=== PATIENT | female | born 1975 | race Caucasian/White ===

== ENCOUNTER 2019-02-26 10:00 | Outpatient (RCR) | payer OTHER, SELFPAY ==
--- NOTE | 2019-02-24 13:52 | HP.PTEVAL_ITS ---
Patient's Visit Information KIERRA REED is a 43 year old F referred to Physical Therapy by GAETANO LUNA with a diagnosis of BPPV. Date of Evaluation: 02/24/19 Physical Therapist: Mauro Wiggins, SAI, OCS, CSCS - Visit Plan Frequency: 1-2x /Week Duration: 2-4 Weeks Plan: 1-2x/week for 2-4 as needed for progression of adaptation exercises and monitor positional/balance - Subjective Findings: Saturday sitting at pool relaxing looking down and looked back up and felt spinning like on a carousel and got hot and sweaty. Vomitted. Then was going to ER brushing teeth felt like on carousel again. Vomitted on way to h [facility]. Kept in hospital until Saturday. Did an MRI and bloodwork adn catscan. All was OK. Diagnosed with vertigo. Has h/o migraines. Had NICOLAS on Saturday. NICOLAS caused by stress. Yesterday was not good, dizzy and nauseaous but no carousel feeling . Does not lie flat to sleep. Hadd some maneuver in hospital but nothing happened according to patient. 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 Enjoys walking and biking and reading and cannot do these lately. Phone adn TV screen also seem abnormal. - Objective Walking is hesitant but not unsafe. trasnfers are I without UE. Steps are slow but reciprocal without rail. - B hallpike adn - roll test. c/s aROM WFL and without symptoms. UE aROM WFL. Oculomotor: no nystagmus with gaze or head shake. pursuit and saccades normal. convergence slow. - skew eye deviation. - head thrust. VOR symptomatic with hot and sweaty and more difficult 30 seconds in with symptoms lasting 2 minutes...horiz. - Balance Scores Functional Gait Assessment Score: 25 % Disability: 16.6700 - Goals Goal 1:: Abolish vertigo feelings Goal Time Frame: 2-4 Weeks Goal 2:: Pt feel 90% better and balance 30/30 FGA Goal Time Frame: 2-4 Weeks Goal 3:: Pt ready/confident to fly to see [place] for vaction this weekend Goal Time Frame: 2 Weeks Goal 4:: Pt ready to return to work. Goal Time Frame: 2-4 Weeks - Rehabilitation Potential Physical Therapy Diagnosis: BPPV vs likely vestibular neuritis. Rehabilitation Potential: Good - Anticipated Interventions Patient/Client Instruction: Educate patient on: Condition, Plan of Care For the Purpose of:: To increase tolerance to activity/condition/position, To improve ability of physical actions for home/community/work/leisure, To improve safety with gait Therapeutic Exercise to Include: Balance training Comment: adaptation and positional ex as needed. For the Purpose of:: To increase tolerance to activity/condition/position, To improve ability of physical actions for home/community/work/leisure Thank you for the opportunity to evaluate your patient. For Medicare and Medicare HMO plans, please review the plan of care and approve it. It will need to be FAXED BACK to us at [phone] for Medicare purposes. For Medicare only, by signing this I certify the plan of care. Please let me know if there are questions or concerns regarding this plan of care. Physician Signature: D ate:
--- NOTE | 2019-05-12 18:34 | HP.PTDCNRP_ITS ---
HP - Discharge Summary (1) - Patient Information KIERRA REED was seen in my office for initial evaluation on 02/24/19. The following Plan of Care was established for this patient: Initial Frequency: 1-2x /Week Initial Duration: 2-4 Weeks - Anticipated Interventions Patient/Client Instruction: Educate patient on: Condition, Plan of Care For the Purpose of:: To increase tolerance to activity/condition/position, To improve ability of physical actions for home/community/work/leisure, To improve safety with gait Therapeutic Exercise to Include: Balance training For the Purpose of:: To increase tolerance to activity/condition/position, To improve ability of physical actions for home/community/work/leisure This patient was last seen in our office 02/26/19. Pertinent comments regarding their Physical therapy will appear below: Pt seen two visits of POC. She was to return to doctor after her last visit due to possible infection. She did not return to PT. at this point, it has been over two months adn I will discontinue due to nonattendance. At this point I will be discontinuing this patient from physical therapy. I w ould be happy to see this patient again in the future if found appropriate by the physician. Thank you! Mauro Wiggins, DPT, OCS, CSCS
== END 2019-02-26 19:00 | disposition home or self-care (01) ==
LOC: PT 10:00
PROVIDERS: Family Provider Dentist; PCP Dentist
DX: H81.10 Benign paroxysmal vertigo, unspecified ear (principal)
CPT/HCPCS: 97110; 97162; 97530

== ENCOUNTER → 2019-03-25 07:00 | Outpatient (CLI) | payer OTHER, SELFPAY ==
--- NOTE | 2019-03-25 07:04 | BI_ITS ---
MAMMOGRAPHY - BILATERAL SCREENING REASON FOR EXAM: Female, 43 years old. Routine annual screening examination. PERTINENT HISTORY: Non-contributory. TECHNIQUE: Digital bilateral breast james (3D mammographic acquisition) in the CC and MLO projections. 2-D mediolateral oblique (MLO) and craniocaudad (CC) views of both breasts were obtained. CAD: Full Field Digital Mammography with Computer Added Detection was performed. COMPARISON: Comparison is made with prior outside examination dated January 08, 2018. FINDINGS: Breast Composition: The breasts are heterogeneously dense, which may obscure small masses. There are no dominant masses or suspicious calcifications. No other significant abnormalities are identified. There has been no significant change since the prior study. BI/SCREENING MAMM (CAD), BILAT IMPRESSION: Stable bilateral screening mammogram. Yearly follow-up mammogram recommended. (A) ASSESSMENT CATEGORY: BIRADS Category 1: Negative. A letter regarding these results will be sent to the patient by the facility within 30 days. Approximately 10% of breast cancers are not detected by mammography. A normal mammogram should not delay biopsy of a clinically suspicious abnormality. [id number] Electronically Signed: Rodrick Aguilera, at 9:44 EDT , Service support ,
== END ==
PROVIDERS: Family Provider Nurse Practitioner Family; PCP Nurse Practitioner Family; Referring Provider Obstetrics & Gynecology; Visit Provider Obstetrics & Gynecology
DX: Z12.31 Encounter for screening mammogram for malignant neoplasm of breast (principal)
CPT/HCPCS: 77063; 77067

== ENCOUNTER → 2020-03-28 08:33 | Outpatient (CLI) | payer OTHER, SELFPAY ==
--- NOTE | 2020-03-28 08:36 | BI_ITS ---
MAMMOGRAPHY - BILATERAL SCREENING REASON FOR EXAM: Female, 44 years old. Routine annual screening examination. PERTINENT HISTORY: Non-contributory. TECHNIQUE: Digital bilateral breast ildefonso (3D mammographic acquisition) in the CC and MLO projections. 2-D mediolateral oblique (MLO) and craniocaudad (CC) views of both breasts were obtained. CAD: Full Field Digital Mammography with Computer Added Detection was performed. COMPARISON: Comparison is made with prior examination dated March 25, 2019. FINDINGS: Breast Composition: The breasts are heterogeneously dense, which may obscure small masses. There are no dominant masses or suspicious calcifications. No other significant abnormalities are identified. There has been no significant change since the prior study. BI/SCREEN MAMM (CAD) W/ILDEFONSO BILAT IMPRESSION: Stable bilateral screening mammogram. Yearly follow-up mammogram recommended. (A) ASSESSMENT CATEGORY: BIRADS Category 1: Negative. A letter regarding these results will be sent to the patient by the facility within 30 days. Approximately 10% of breast cancers are not detected by mammography. A normal mammogram should not delay biopsy of a clinically suspicious abnormality. [id number] Electronically Signed: Rodrick Aguilera, at 9:59 EDT , Service support ,
== END ==
PROVIDERS: Family Provider Nurse Practitioner Family; PCP Nurse Practitioner Family; Referring Provider Obstetrics & Gynecology; Visit Provider Obstetrics & Gynecology
DX: Z12.31 Encounter for screening mammogram for malignant neoplasm of breast (principal)
CPT/HCPCS: 77063; 77067

== ENCOUNTER → 2021-07-31 | Outpatient (CLI) | payer OTHER, SELFPAY ==
--- NOTE | 2021-07-31 09:39 | BI_ITS ---
MAMMOGRAPHY - BILATERAL SCREENING REASON FOR EXAM: Female, 45 years old. Routine annual screening examination. PERTINENT HISTORY: Non-contributory. TECHNIQUE: Digital bilateral breast ildefonso (3D mammographic acquisition) in the CC and MLO projections. 2-D mediolateral oblique (MLO) and craniocaudad (CC) views of both breasts were obtained. CAD: Full Field Digital Mammography with Computer Added Detection was performed. COMPARISON: Comparison is made with prior examination dated 03/28/2020 and 03/25/2019. FINDINGS: Breast Composition: The breasts are heterogeneously dense, which may obscure small masses. There are no dominant masses or suspicious calcifications. Stable small benign-appearing bilateral axillary lymph nodes. No other significant abnormalities are identified. There has been no significant change since the prior study. BI/SCRN MAMM (CAD)W/ILDEFONSO BILAT IMPRESSION: Stable bilateral screening mammogram. Yearly follow-up mammogram recommended. (A) ASSESSMENT CATEGORY: BIRADS Category 2: Benign. A letter regarding these results will be sent to the patient by the facility within 30 days. Approximately 10% of breast cancers are not detected by mammography. A normal mammogram should not delay biopsy of a clinically suspicious abnormality. [id number] Electronically Signed: Rodrick Aguilera MD at 11:11 EDT , Service support ,
== END | disposition home or self-care (01) ==
LOC: OPBI 09:38
PROVIDERS: PCP Nurse Practitioner Family; Visit Provider Obstetrics & Gynecology
DX: Z12.31 Encounter for screening mammogram for malignant neoplasm of breast (principal)
CPT/HCPCS: 77063; 77067

== ENCOUNTER → 2022-08-02 | Outpatient (CLI) | payer OTHER, SELFPAY ==
--- NOTE | 2022-08-02 07:59 | BI_ITS ---
MAMMOGRAPHY - BILATERAL SCREENING REASON FOR EXAM: Female, 46 years old. Routine annual screening examination. PERTINENT HISTORY: Non-contributory. TECHNIQUE: Digital bilateral breast ildefonso (3D mammographic acquisition) in the CC and MLO projections. 2-D mediolateral oblique (MLO) and craniocaudad (CC) views of both breasts were obtained. CAD: Full Field Digital Mammography with Computer Added Detection was performed. COMPARISON: Comparison is made with prior study 07/31/2021 and 03/28/2020. FINDINGS: Breast Composition: The breasts are heterogeneously dense, which may obscure small masses. There are no dominant masses or suspicious calcifications. Stable small benign-appearing bilateral axillary No other significant abnormalities are identified. There has been no significant change since the prior study. BI/SCRN MAMM (CAD)W/ILDEFONSO BILAT IMPRESSION: Stable bilateral screening mammogram. Yearly follow-up mammogram recommended. (A) ASSESSMENT CATEGORY: BIRADS Category 2: Benign. A letter regarding these results will be sent to the patient by the facility within 30 days. Approximately 10% of breast cancers are not detected by mammography. A normal mammogram should not delay biopsy of a clinically suspicious abnormality. [id number] Electronically Signed: Rodrick Aguilera MD at 10:01 EDT ,
== END | disposition home or self-care (01) ==
LOC: OPBI 07:58
PROVIDERS: PCP Internal Medicine; Visit Provider Internal Medicine
DX: Z12.31 Encounter for screening mammogram for malignant neoplasm of breast (principal)
CPT/HCPCS: 77063; 77067

== ENCOUNTER 2022-09-14 07:17 | Day surgery (SDC) | payer OTHER, SELFPAY ==
[2022-09-14] VITALS (7 sets, daily range): BP systolic 105–124; BP diastolic 63–77; PULSE 63–89; RESP 14–100; TEMP 36.3–36.5; O2SAT 14–100; BMI 26.5
--- NOTE | 2022-09-14 07:25 | PCM.HP.BLA ---
History and Physical Date of Admission: 09/14/22 Visit Reasons:?Thrombosed Hemorrhoid Chief Complaint: Thrombosed Hemorrhoid [employer] Required: No Is patient in pain?: No Allergies No Known Allergies Allergy (Verified 03/29/22 13:05) Medications citalopram 40 mg tablet 40 mg PO DAILY 03/29/22 [History Confirmed 03/29/22] hydrocortisone acetate 25 mg rectal suppository 25 mg MD BID #12 ea 03/29/22 [Rx Confirmed 03/29/22] topiramate 25 mg tablet 25 mg PO DAILY? tab 03/29/22 [History Confirmed 03/29/22] PFSH Medical History?(Updated 04/02/22 @ 07:33 by Chiquita OTERO PA-C) Anxiety Encounter for screening colonoscopy Internal hemorrhoid Surgical History?(Updated 03/29/22 @ 12:52 by Mine Serrano) History of bladder suspension procedure History of History of hemorrhoidectomy History of laparoscopic cholecystectomy Family History? Father High blood cholesterolMother Cancer Skin cancer Social History?(Updated 03/29/22 @ 12:55 by Mine Serrano) Smoking Status:? Never smoker alcohol intake:? current substance use type:? does not use HPI HPI HPI: KIERRA REED, is a 46 F who presents to the office today for possible thrombosed hemorrhoid. Patient states she has been having pain in the anal/rectum region for approximately 2 years. 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 Patient notes when having a bowel movement she is able to feel a hemorrhoid sliding out. She notes the hemorrhoid will stay out intermittently. She notes this is when the pain will occur and she believes develops a thrombosed hemorrhoid. She notes the hemorrhoid will spontaneously resolve and slide back into place. She notes at times it is challenging to keep the area clean. She states she has had a previous external hemorrhoidectomy approximately 1 month after giving 20 years ago. She notes a history of constipation for which she takes Metamucil. She notes this does not help to soften her stools anymore. She does admit that she does not drink much fluids. She also notes she is of age for a colonoscopy. She notes verifying with her insurance company that she should have received a colonoscopy starting at age 44. She notes some rectal bleeding intermittently with bowel movements only. She denies abdominal pain. She denies family history of colon cancer. She denies previous colonoscopy.? ? ROS General General: No weight change, appetite, fatigue, colon cancer, breast cancer or weakness HEENT HEENT: No difficulty swallowing, eye injury, eye surgery, swollen glands or hoarseness Endo Endocrine: No thyroid disease, diabetes mellitus, thyroid cancer, Hair loss, heat intolerance or cold intolerance Skin Skin: No rash or changing moles Breast Breast: No left breast lump, right breast lump, nipple discharge, breast pain, abnormal mammogram, abnormal US or breast enlargement Musc Musculoskeletal: No back problems, arthritis, rheumatoid arthritis, gout or joint pain Cardio Cardiovascular: No murmur, pacemaker, heart disease, atrial fibrillation, high blood pressure, heart attack, heart stent, palpitations, shortness of breat with exertion or chest pain Psych Psychiatric: Yes anxiety; No depression or hearing voices Resp Respiratory: No shortness of breath, No sleep apnea, No cough, No COPD, No asthma, No emphysema and No wheezing Gastro Gastrointestinal: Yes constipation, Yes blood in stool, Yes acid reflux and Yes hemorrhoids [place]arrison Hematologic: No blood thinners, No blood disorders, No bleeding, No anemia and No blood clots Neuro Neurologic: No system reviewed and no additional complaints, except as documented, No as per HPI, No abnormal gait, No abnormal hearing, No abnormal movements, No abnormal speech, No behavioral changes, No burning sensations, No confusion, No convulsions, No disequilibrium, No dizziness, No localized weakness, No frequent falls, No headache(s), No lack of coordination, No loss of vision, No memory loss, No numbness, No other visual disturbances, No radicular pain, No restless legs, No sensory deficit, No syncope, No tingling, No tremor(s), No weakness and No other Exam Const General: cooperative, healthy appearing, comfortable and no acute distress [facility] Head: normal to inspection Eyes General: appearance normal, both eyes and all related structures Neck Neck: normal visual inspection Neck mass: No Resp Effort & Inspection: normal respiratory effort Auscultation: clear to auscultation bilaterally Cardio Rate: regular rate Rhythm: regular rhythm GI Inspection: normal to inspection Palpation: soft Auscultation: normal bowel sounds Rectal Exam: normal sphincter tone, No fissure and hemorrhoids (swollen internal hemorrhoids noted) Skin General: no rashes or lesions noted Neuro General: no focal motor deficits and CN's II-XI intact bilaterally Extrem General: normal to inspection Psych Appearance: grossly normal Affect: normal affect Assessment and Plan Assessment and Plan (1) Internal hemorrhoid: ?Status:?Acute ?Plan - JACOB JoinerC: 46 y/o F I am seeing for potential thrombosed hemorrhoid. Following examination, patient currently has inflamed internal hemorrhoids with notable swelling internally, however no thrombosed hemorrhoid. She has not been placing any ointment or creams on the hemorrhoids. She has not been using suppositories, however would be interested in trying these to decrease the inflammation. I am not appreciating an external fissure as most of her discomfort is at the posterior aspect of the anus, however no fissure noted. I am recommending hydrocortisone suppositories to try BID for 3-5 days to assist with decreasing the swelling. I will send these to the pharmacy. I am also recommending the patient keep her stools soft and add Miralax into her daily regimen. (2) Encounter for screening colonoscopy: ?Status:?Acute ?Plan - Chiquita OTERO PA-C: Dr. Mcfarland will plan to perform a screening colonoscopy and evaluate the severity of internal hemorrhoids at that time. Colonoscopy procedure details, risks and benefits have been explained. We will proceed with a Miralax prep at the convenience of the patient. Following the colonoscopy, discussion may proceed further in regards to future treatment of the hemorrhoids in the form of a surgical intervention. Patient has had the opportunity to ask and have questions answered. Patient verbally understands and agrees with the plan. Patient to return to our office if she notes any anal discomfort or potential of a thrombosed hemorrhoid I have examined the patient and the H&P has been reviewed. There are no clinical changes since date of exam. Dalton Mcfarland M.D., F.A.C.S.
[2022-09-14] MEDS: Lactated Ringers 1,000 ML 15 ML IV (07:54)
[2022-09-14 08:05] LABS: Internal QC Validated? YES +Cl - CLEAR BKGD; Pregnancy, Urine Negative Negative
--- NOTE | 2022-09-14 09:02 | OP.COLON_ITS ---
Patient Name: Kate Cortez Procedure Date: 09/14/2022 8:25 AM Date of : 1975 Age: 47 Procedure: Colonoscopy Indications: Follow-up of hemorrhoids Providers: Dalton Mcfarland MD Medicines: See the Anesthesia note for documentation of the administered medications Patient Profile: Last Colonoscopy: none. The patient's first colonoscopy is today. Complications: No immediate complications. Procedure: Pre-Anesthesia Assessment: - Prior to the procedure, a History and Physical was performed, and patient medications and allergies were reviewed. The patient's tolerance of previous anesthesia was also reviewed. The risks and benefits of the procedure and the sedation options and risks were discussed with the patient. All questions were answered, and informed consent was obtained. Prior Anticoagulants: The patient has taken no previous anticoagulant or antiplatelet agents. ASA Grade Assessment: II - A patient with mild systemic disease. After reviewing the risks and benefits, the patient was deemed in satisfactory condition to undergo the procedure. After I obtained informed consent, the scope was passed under direct vision. Throughout the procedure, the patient's blood pressure, pulse, and oxygen saturations were monitored continuously. The Colonoscope was introduced through the anus and advanced to the cecum, identified by appendiceal orifice and ileocecal valve. The colonoscopy was somewhat difficult due to a tortuous colon. Successful completion of the procedure was aided by using manual pressure and withdrawing the scope and replacing with the adult endoscope. The patient tolerated the procedure well. The quality of the bowel preparation was good. Scope In: 8:33:20 AM Scope Withdrawal Time 0 hours 6 minutes 47 seconds Scope Out: 8:54:30 AM Total Procedure Duration Time 0 hours 21 minutes 10 seconds Findings: The digital rectal exam findings include non-thrombosed external hemorrhoids and internal hemorrhoids that prolapse with straining, but require manual replacement into the anal canal (Grade III). The colon (entire examined portion) was moderately tortuous. The exam was otherwise without abnormality. Impression: - Non-thrombosed external hemorrhoids and internal hemorrhoids that prolapse with straining, but require manual replacement into the anal canal (Grade III) found on digital rectal exam. Left lateral external hemorrhoidal tag - Tortuous colon. - The examination was otherwise normal. - No specimens collected. Recommendation: - Discharge patient to home. - Resume previous diet. - Continue present medications. - Repeat colonoscopy in 10 years for screening purposes. - Telephone my office if symptomatic PRN. Consider surgical resection hemorrhoidal tags Procedure Code(s): --- Professional --- 05268, Colonoscopy, flexible; diagnostic, including collection of specimen(s) by brushing or washing, when performed (separate procedure) Diagnosis Code(s): --- Professional --- K64.2, Third degree hemorrhoids K64.4, Residual hemorrhoidal skin tags Q43.8, Other specified congenital malformations of intestine CPT copyright 2017 [employer]. All rights reserved. The codes documented in this report are preliminary and upon him coder review may be revised to meet current compliance requirements. Dalton Mcfarland MD 09/14/2022 9:01:44 AM This report has been signed electronically. Number of Addenda: 0 Note Initiated On: 09/14/2022 8:25 AM
--- NOTE | 2022-09-14 09:03 | OP.CCLET_ITS ---
09/14/2022 Michelle López [address] [place] [address] Re : Colonoscopy procedure for Kate Cortez Dear Dr. López This procedure was performed on Wednesday, September 14, 2022. My impressions and recommendations are as follows: Impressions : - Non-thrombosed external hemorrhoids and internal hemorrhoids that prolapse with straining, but require manual replacement into the anal canal (Grade III) found on digital rectal exam. Left lateral external hemorrhoidal tag - Tortuous colon. - The examination was otherwise normal. - No specimens collected. Recommendations : - Discharge patient to home. - Resume previous diet. - Continue present medications. - Repeat colonoscopy in 10 years for screening purposes. - Telephone my office if symptomatic PRN. Consider surgical resection hemorrhoidal tags My findings are described in the full procedure note, which is enclosed. If I can be of further assistance, please feel free to contact me at Doctor phone number(s): Work: . Sincerely, Dalton Mcfarland MD 09/14/2022 9:01:44 AM This report has been signed electronically.
== END 2022-09-14 09:36 | disposition home or self-care (01) ==
LOC: EN 07:19 → AC 07:20
PROVIDERS: Anesthesiology; PCP Internal Medicine; Referring Provider Internal Medicine; Visit Provider Surgery
PROC: 0DJD8ZZ Inspection of Lower Intestinal Tract, Via Natural or Artificial Opening Endoscopic (ICD-10-PCS; CPT 45378; principal; 2022-09-14 08:25)
DX: Z12.11 Encounter for screening for malignant neoplasm of colon (principal); K64.2 Third degree hemorrhoids; K62.5 Hemorrhage of anus and rectum; K64.4 Residual hemorrhoidal skin tags; F41.9 Anxiety disorder, unspecified; Z79.899 Other long term (current) drug therapy
CPT/HCPCS: 45378; 81025; J7120; J2405

== ENCOUNTER → 2023-08-05 | Outpatient (CLI) | payer OTHER, SELFPAY ==
--- NOTE | 2023-08-05 07:53 | BI_ITS ---
MAMMOGRAPHY - BILATERAL SCREENING REASON FOR EXAM: Female, 48 years old. Routine annual screening examination. PERTINENT HISTORY: Non-contributory. TECHNIQUE: Digital bilateral breast ildefonso (3D mammographic acquisition) in the CC and MLO projections. 2-D mediolateral oblique (MLO) and craniocaudad (CC) views of both breasts were obtained. CAD: Full Field Digital Mammography with Computer Added Detection was performed. COMPARISON: Comparison is made with prior study August 02, 2022 and July 31, 2021. FINDINGS: Breast Composition: The breasts are heterogeneously dense, which may obscure small masses. There are no dominant masses or suspicious calcifications. Stable benign-appearing bilateral axillary lymph nodes. No other significant abnormalities are identified. There has been no significant change since the prior study. BI/SCRN MAMM (CAD)W/ILDEFONSO BILAT IMPRESSION: Stable bilateral screening mammogram. Yearly follow-up mammogram recommended. (A) ASSESSMENT CATEGORY: BIRADS Category 2: Benign. A letter regarding these results will be sent to the patient by the facility within 30 days. Approximately 10% of breast cancers are not detected by mammography. A normal mammogram should not delay biopsy of a clinically suspicious abnormality. [id number] Electronically Signed: Rodrick Aguilera MD at 9:22 EDT ,
== END | disposition home or self-care (01) ==
LOC: OPBI 07:50
PROVIDERS: PCP Internal Medicine; Referring Provider Obstetrics & Gynecology; Visit Provider Obstetrics & Gynecology
DX: Z12.31 Encounter for screening mammogram for malignant neoplasm of breast (principal)
CPT/HCPCS: 77063; 77067

== ENCOUNTER → 2024-08-06 | Outpatient (CLI) | payer OTHER, SELFPAY ==
--- NOTE | 2024-08-06 07:23 | BI_ITS ---
MAMMOGRAPHY - BILATERAL SCREENING REASON FOR EXAM: Female, 49 years old. Routine annual screening examination. PERTINENT HISTORY: Non-contributory. TECHNIQUE: Digital bilateral breast ildefonso (3D mammographic acquisition) in the CC and MLO projections. 2-D mediolateral oblique (MLO) and craniocaudad (CC) views of both breasts were obtained. CAD: Full Field Digital Mammography with Computer Added Detection was performed. COMPARISON: Comparison is made with prior study dated August 05, 2023 and August 02, 2022. FINDINGS: Breast Composition: The breasts are heterogeneously dense, which may obscure small masses. There are no dominant masses or suspicious calcifications. Stable small benign-appearing bilateral axillary lymph nodes. No other significant abnormalities are identified. There has been no significant change since the prior study. BI/SCRN MAMM (CAD)W/ILDEFONSO BILAT IMPRESSION: Stable bilateral screening mammogram. Yearly follow-up mammogram recommended. (A) ASSESSMENT CATEGORY: BIRADS Category 2: Benign. A letter regarding these results will be sent to the patient by the facility within 30 days. Approximately 10% of breast cancers are not detected by mammography. A normal mammogram should not delay biopsy of a clinically suspicious abnormality. [id number] Electronically Signed: Rodrick Aguilera MD at 8:31 EDT ,
== END | disposition home or self-care (01) ==
LOC: OPBI 07:15
PROVIDERS: PCP Internal Medicine; Referring Provider Obstetrics & Gynecology; Visit Provider Obstetrics & Gynecology
DX: Z12.31 Encounter for screening mammogram for malignant neoplasm of breast (principal)
CPT/HCPCS: 77063; 77067

== ENCOUNTER → 2025-08-09 | Outpatient (CLI) | payer OTHER, SELFPAY ==
--- NOTE | 2025-08-09 07:19 | BI_ITS ---
EXAM: SCRN MAMM (CAD)W/ILDEFONSO BILAT DATE: 08/09/2025 CLINICAL HISTORY: F, Age 50 y/o , SCREENING No family history. TECHNIQUE: Procedure Code: [id number] Modality: MG Procedure: SCRN MAMM (CAD)W/ILDEFONSO BILAT COMPARISON: Prior exam(s) dated August 06, 2024.. FINDINGS: TISSUE DENSITY: The breasts are heterogeneously dense, which may obscure small masses. Bilateral Breast Mammographic Findings: Focal nodular density seen only on the MLO view of the left breast measuring 1 cm in the axillary region. The patient will be recalled for additional views including 90 degree lateral and compression spot views. BI/SCRN MAMM (CAD)W/ILDEFONSO BILAT IMPRESSION: Questionable 1 cm nodular density in the axillary region of the left breast as seen on the MLO view. The patient will be recalled for additional views including 90 degree lateral and compression spot views. OVERALL FINAL ASSESSMENT BI-RADS 0: INCOMPLETE - NEED ADDITIONAL IMAGING EVALUATION. RECOMMENDATION: Additional Views obtained/call backs Additional Recommendation none A letter with findings and recommendations will be mailed to the patient. Reading Location: [place] [id number]
--- OUTSIDE RECORDS SUMMARY | 2025-08-09 07:24 | XMS RPT_ITS | CCD ---
Author Organization [facility] Care Team Providers Care Restaurant Expeditor Name Role Phone Carol Lebron MD Primary Care Provider POONAM Plascencia CNP, PROSPER Dwyer Primary Care Phys ician Carol Lebron MD Primary Care Provider Cebul, Dr. Dalton Dwyer Attending Provider Cewendy, Dr. Dalton Dwyer Other Provider Dr. Carol Lebron Primary Care Provider Dr. Carol Lebron Referring Provider HAILEE, DR FRANDY Durand Attending Unavaila tiffanie BENSON, DR FRANDY Durand Primary Care Unavaila tiffanie BENSON, DR FRANDY Durand Admitting Unavaila Carol Mir MD Primary Care Provider Carol Lebron MD Primary Care Provider PROSPER DAVE APRN, CNP Primary Care U hieu JOHNSON MD, DR MATTI Germain Attending Unavailabl e PROSPER DAVE APRN, CNP Primary Care U hieu MARINO MD, ELAYNE Attending Unavailable Carol Lebron MD Primary Care Provider Rosanne Sykes PA-C Unavailable [phone] Older YANA, Silvina Unavailable Katherine Tirado PA-C Unavailable BHAMA, LITA Admitting Unavailable ANTOINE, LITA Attending Unavailable CAROL LEBRON Primary Care Unavailable TAYEB, JOSSIE Attending Unavailable CAROL LEBRON Primary Care Unavailable CAROL LEBRON Primary Care Unavailable GANTA, CAROL Attending Unavailable CLAUDIA TIRADOADETTE Attending Unavailable GANTA, CAROL Primary Care Unavailable GENA THOMPSON Attending Unavailable GANTA, CAROL Primary Care Unavailable ASHLEE MUNOZ Attending Unavailable GANTA, CAROL Primary Care Unavailable RADHA PHAM Attending Unavailable GANTA, CAROL Primary Care Unavailable SILVINA PRESLEY Referring Unavailable GANTA, CAROL Primary Care Unavailable GANTA, CAROL Primary Care Unavailable GANTA, CAROL Referring Unavailable GANTA, CAROL Primary Care Unavailable GANTA, CAROL Attending Unavailable AMANDA EWING Attending Unavailable GANTA, CAROL Primary Care Unavailable BHAMA, LITA Attending Unavailable GANTA, CAROL Primary Care Unavailable GANTA, CAROL Primary Care Unavailable NICKO GEORGE Referring Unavailable GANTA, CAROL Primary Care Unavailable GANTA, CAROL Primary Care Unavailable GANTA, CAROL Referring Unavailable GANTA, CAROL Primary Care Unavailable GANTA, CAROL Primary Care Unavailable JOVI KISER Attending Unavailable GANTA, CAROL Primary Care Unavailable BOGNER, KATHERINE Referring Unavailable BHAMA, LITA Attending Unavailable GANTA, CAROL Primary Care Unavailable BOGNER, KATHERINE Referring Unavailable GANTA, CAROL Primary Care Unavailable GANTA, CAROL Primary Care Unavailable Ganta, Carol Referring Unavailable Ganta, Carol Attending Unavailable Ganta, Carol Primary Care Unavailable Allergies Allergy Classification Reported Allergen(s) Allergy Type Date of Onset Reaction(s) Facility (20 sources) Erythromycin; Translations: [ERYTHROMYCIN] Drug Allergy 10-15-2005 GI Upset [facility] Work Phone: (20 sources) Honey; Translations: [HONEY] Propensity to adverse reactions 07-04-2009 Swelling [facility] Work Phone: Medications Current Medications Medication Drug Class(es) Dates Sig (Normalized) Sig (Original) ALPRAZolam 0.5 mg oral tablet (1 source) Benzodiazepine Start: 04-13-2025 End: 04-20-2025 take 1 tablet by mouth three times daily as needed ALPRAZolam (XANAX) 0.5 mg tablet Indications: Panic attacks Take 1 tablet by mouth three times a day as needed for up to 7 days. 15 tablet 04/13/2025 04/20/2025 Active amoxicillin 875 mg / clavulanate 125 mg oral tablet (1 source) Penicillin-class Antibacterial Start: 09-14-2024 End: 09-21-2024 take 1 tablet by mouth twice daily amoxicillin-clavula ever potassium (AUGMENTIN) 875-125 mg per tablet Indications: Sinobronchitis Take 1 tablet by mouth two times a day for 7 days. 14 tablet 09/14/2024 09/21/2024 Active ASHWAGANDHA EXTRACT ORAL (9 sources) take 600 mg by mouth once daily ASHWAGANDHA EXTRACT ORAL Take 600 mg by mouth once daily. Active B.animalis,bifid,in fantis,long (PROBIOTIC 4X ORAL) (9 sources) B.animalis,bifid ,in fantis,long (PROBIOTIC 4X ORAL) Take by mouth once daily. Active buPROPion hydrochloride 75 mg oral tablet (9 sources) Aminoketone Start: 02-25-2025 End: 04-26-2025 take 1 tablet by mouth twice daily buPROPion (WELLBUTRIN) 75 mg tablet Take 1 tablet by mouth two times a day. 60 tablet 1 02/25/2025 Active Start: 02-23-2025 End: 08-22-2025 take 1 tablet by mouth once daily buPROPion XL (WELLBUTRIN XL) 150 mg 24 hr tablet Take 1 tablet by mouth once daily. 90 tablet 1 02/23/2025 08/22/2025 Active Calcium with Vitamin D and Magnesium oral tablet, chewable (1 source) Start: 08-02-2022 take 1 tablet by mouth three times daily Calcium with Vitamin D and Magnesium oral tablet, chewable tab(s), Chewed, TID, 0 Refill(s) Start Date: 08/02/22 Status: Ordered cholecalciferol 0.05 mg oral capsule (2 sources) Vitamin D Start: 09-10-2022 take 1 capsule by mouth once daily Cholecalciferol (Vitamin D3) (Vitamin D3) 50 mcg (2,000 unit) Capsule Active 50 MCG PO DAILY September 10, 2022 12:00am cholecalciferol, vitamin D3, (VITAMIN D3 ORAL) (20 sources) cholecalciferol, vitamin D3, (VITAMIN D3 ORAL) Take by mouth once daily. Active citalopram 20 mg oral tablet (20 sources) Serotonin Reuptake Inhibitor Start: 04-05-2025 take 1 tablet by mouth once daily citalopram (CELEXA) 20 mg tablet Take 1 tablet by mouth once daily. 90 tablet 3 04/05/2025 Active Start: 02-25-2025 End: 04-26-2025 take 1 tablet by mouth once daily citalopram hydrobromide (CELEXA) 10 mg tablet Take 1 tablet by mouth once daily. 60 tablet 02/25/2025 04/05/2025 Discontinued Start: 06-17-2023 End: 02-23-2025 take 1 tablet by mouth once daily citalopram (CELEXA) 40 mg tablet Take 1 tablet by mouth once daily. 90 tablet 1 11/17/2024 02/23/2025 Discontinued Start: 07-31-2021 End: 07-26-2022 take 1 tablet by mouth once daily citalopram (CELEXA) 40 mg tablet Take 1 tablet by mouth once daily. 90 tablet 3 05/07/2022 Active Start: 10-28-2020 End: 12-08-2021 take 1 tablet by mouth once daily citalopram (CELEXA) 20 mg tablet Take 1 tablet by mouth once daily. 90 tablet 3 10/28/2020 12/08/2021 Discontinued (Course of therapy completed) Comment on above: Take by mouth once d aily. Take 1 tablet by kevin th once daily. Take 40 mg by mouth. cyanocobalamin, vitamin B-12, (VITAMIN B-12 ORAL) (20 sources) cyanocobalamin, vitamin B-12, (VITAMIN B-12 ORAL) Take by mouth once daily. Active docosahexaenoic acid/epa (FISH OIL ORAL) (9 sources) take 1000 mg by mouth once daily docosahexaenoic acid/epa (FISH OIL ORAL) Take 1,000 mg by mouth once daily. Active 84 hr estradiol 0.86111 mg/hr transdermal system (16 sources) Estrogen Start: 12-02-19 25 estradiol (VIVELLE-DOT) 0.075 mg/24 hr patch Use twice weekly on abdomen or buttock 24 Patch 3 12/02/2024 Active Estradiol Patch 0.0375 mg/24 hours twice weekly transdermal film, extended release (1 source) Start: 04-02-20 24 Estradiol Patch 0.0375 mg/24 hours twice weekly transdermal film, extended release Dose = 1 patch(es), Transdermal, 2x/Wk, apply to skin, # 8 patch(es), 0 Refill(s) Start Date: 04/02/24 Status: Ordered Ethinyl Estradiol / Norethindrone (20 sources) Estrogen Start: 04-05-20 25 take 1 tablet by mouth once daily, then take 0.05 tablet by mouth once Norethindrone Acet-Ethinyl Est (12/07, ,) 1-20 mg-mcg per tablet Take 1 tablet by mouth once daily. 63 tablet 3 04/05/2025 Active Start: 03-09-2024 take 1 tablet by kevin th once daily 12/07 oral tablet Dose = 1 tab(s), Oral, qDay, # 84 tab(s), 3 Refill(s), Pharmacy: [facility]/pharmacy #[id number], 166, cm, 03/09/24 15:00:00 EDT, Height, kg, 03/09/24 15:00:00 EDT, Dosing Weight Start Date: 03/09/24 Status: Ordered Start: 09-10-2022 End: 04-05-2025 take 1 tablet by mouth once daily Norethindrone Acet-Ethinyl Est 1-20 mg-mcg per tablet Take 1 tablet by mouth once daily. 09/10/2022 04/05/2025 Discontinued Start: 09-10-2022 take 1 tablet by kevin th once daily Norethindrone Acet-Ethinyl Est 1-20 mg-mcg per tablet Take 1 tablet by mouth once daily. 09/10/2022 Active Start: 09-10-2022 take 1 tablet by kevin th once daily Norethindrone Ac-Eth Estradiol Active 1 TABLET PO DAILY September 10, 2022 12:00am Start: 08-02-2022 End: 01-17-2023 take 1 tablet by mouth once daily Loestrin 21 12/07 oral tablet Dose = 1 tab(s), Oral, qDay, # 84 tab(s), 1 Refill(s), Pharmacy: [facility], 166, cm, 08/02/22 9:40:00 EDT, Height, kg, 08/02/22 9:40:00 EDT, Dosing Weight Start Date: 08/02/22 Stop Date: 01/17/23 Status: Ordered Start: 07-31-2021 End: 01-15-2022 take 1 tablet by mouth once daily Loestrin 12/07 oral tablet Dose = 1 tab(s), Oral, qDay, # 84 tab(s), 1 Refill(s), Pharmacy: [facility], 167, cm, 07/31/21 10:48:00 EDT, Height, kg, 07/31/21 10:48:00 EDT, Dosing Weight Start Date: 07/31/21 Stop Date: 01/15/22 Status: Ordered Start: 07-31-2021 End: 01-17-[address] Acet-Ethinyl E st 1-20 mg-mcg per tablet Take 20 tablets by mouth once daily. 0 07/31/2021 01/17/2023 Active Start: 08-20-2020 End: 12-08-[address] Acet-Ethinyl E st 1-20 mg-mcg per tablet 08/20/2020 12/08/2021 Discontinued (Course of therapy completed) End: 12-02-2024 take 1 tablet by mouth once daily , 1-20 mg-mcg per tablet Take 1 tablet by mouth once daily. 12/02/2024 Discontinued take 1 tablet by kevin th once daily , 1-20 mg-mcg per tablet Take 1 tablet by mouth once daily. Active Comment on above: Take 20 tablets by m outh once daily. gabapentin 300 mg oral capsule (15 sources) Anti-epileptic Agent Start: 07-14-2025 End: 01-10-2026 take 1 capsule by mouth twice daily gabapentin (NEURONTIN) 300 mg capsule Take 1 capsule by mouth two times a day for 180 days. 60 capsule 5 07/14/2025 01/10/2026 Active Start: 04-13-2025 End: 07-26-2025 take 1 capsule by mouth once daily at bedtime, then take 1 capsule by mouth twice daily gabapentin (NEURONTIN) 300 mg capsule Take 1 capsule by mouth daily at bedtime for 14 days, THEN 1 capsule two times a day for 90 days. 194 capsule 04/13/2025 07/14/2025 Discontinued Start: 10-22-2022 End: 07-13-2024 take 1 capsule by mouth once daily at bedtime gabapentin (NEURONTIN) 300 mg capsule Indications: Menstrual migraine without status migrainosus, not intractable , Migrainous dizziness Take 1 capsule by mouth daily at bedtime for 180 days. 90 capsule 1 12/07/2022 07/13/2024 Discontinued Comment on above: Take 1 capsule by [facility] daily at bedtime for 90 days. Take 1 capsule by [facility] daily at bedtime for 180 days. hydrocortisone acetate 25 mg rectal suppository (5 sources) Corticosteroid Start: 2021 End: 2021 Hydrocortisone Acetate Active 25 MG RC TWICE A DAY September 10, 2022 11:59am iv contrast (will be provided with radiology test) (1 source) Start: 2021 End: 2021 inject 1 dose intravenously once iv contrast (will be provided with radiology test) MRI Brain Inject, intravenously, once for 1 dose.No IV access, insert saline lock prior to beginning of sedation, infusion, injection of imaging exam.Discontinue saline lock post exam. If Pt. has a central line or IVAD, may access for administration according to line specific nursing protocol.Once exam is complete flush line and de-access according to line specific nursing protocol in the MR contrast administration guidelines link 1 Each 0 07/30/2022 07/31/2022 Active Comment on above: MRI Brain Inject, in travenously, once for 1 dose.No IV access, insert saline lock prior to beginning of sedation, infusion, injection of imaging exam.Discontinue saline lock post exam. If Pt. has a central line or IVAD, may access for administration according to line specific nursing protocol.Once exam is complete flush line and de-access according to line specific nursing protocol in the MR contrast administration guidelines link ketorolac tromethamine 10 mg oral tablet (3 sources) Nonsteroidal Anti-inflammatory Drug, Cyclooxygenase Inhibitor Start: 2024 End: 2024 take 1 tablet by mouth three times daily keTORolac (TORADOL) 10 mg tablet Take 1 tablet by mouth three times a day for 5 days. 15 tablet 04/13/2025 04/18/2025 Active lidocaine 0.05 mg/mg rectal gel (1 source) Antiarrhythmic, Amide Local Anesthetic Start: 2023 End: 2023 lidocaine 5 % gel Apply to affected area two times a day as needed for up to 7 days. 30 g 10/23/2024 10/30/2024 Active LORazepam 0.5 mg oral tablet (2 sources) Benzodiazepine Start: 2022 End: 2022 LORazepam (ATIVAN) 0.5 mg Indications: Panic attacks For panic attacks once or twice daily 10 tablet 0 05/01/2023 05/30/2023 Active Comment on above: For panic attacks on ce or twice daily Magnesium (4 sources) Start: 2022 3 in 1 magnesium tablet 3 in 1 magnesium tablet, 0 Refill(s), 81.3 Start Date: 10/17/23 Status: Ordered Start: 09-10-2022 take 200 mg by mouth once ghassan y Magnesium Active 200 MG PO DAILY September 10, 2022 12:00am magnesium carb,citrate,oxide (MAGNESIUM COMPLEX ORAL) (20 sources) magnesium carb,citrate,oxide (MAGNESIUM COMPLEX ORAL) Take by mouth once daily. Active meclizine hydrochloride 25 mg oral tablet (20 sources) Antiemetic Start: 022 End: take 1 tablet by mouth once daily as needed meclizine (ANTIVERT) 25 mg tab Take 1 tablet by mouth once daily as needed. 15 tablet 2 10/01/2022 Active Comment on above: Take 1 tablet by kevin th once daily as needed. Take 25 mg by mouth once daily as needed. MEDICATION, NON-DATABASE (20 sources) MEDICATION, NON- DATABASE Take by mouth once daily. D3 + k2 vitamin Active take 1200 mg by mouth once daily MEDICATION, NON-DATABASE Take 1,200 mg by mouth once daily. Red yeast rice extract Active take 1 [tsp_us] by mouth once da talon MEDICATION, NON-DATABASE Take by mouth once daily. Curcumin and rexveratrol 1 tsp daily Active MEDICATION, NON- DATABASE Take by mouth once daily. Pre biotic Active medroxyPROGESTERone acetate 10 mg oral tablet (17 sources) Progestin Start: 12-02-2024 take 1 tablet by mouth once daily medroxyPROGESTERone (PROVERA) 10 mg tablet Indications: Perimenopause , Perimenopausal vasomotor symptoms Take 1 tablet by mouth once daily. FOR 12 DAYS EACH MONTH 36 tablet 3 12/02/2024 Active Start: 04-02-2024 medroxyPROGEST ERone 2.5 mg oral tablet Dose : 2.5 mg = 1 tab(s), Oral, Daily, # 90 tab(s), 0 Refill(s) Start Date: 04/02/24 Status: Ordered NIFEdipine (12 sources) Dihydropyridine Calcium Channel Jamil Start: 02-04-2025 NIFEdipine rectal ointment 0.2% (CPD) Apply a pea-sized amount by RECTAL route three times a day. 90 g 1 02/08/2025 12:47 PM EDT 02/04/2025 Active Start: 02-04-2025 NIFEdipine rec richy ointment 0.2% (CPD) by RECTAL route three times a day. 90 g 1 02/04/2025 Active Start: 02-04-2025 End: 02-04-2025 NIFEdipine rectal ointment 0 .2% (CPD) by RECTAL route three times a day. 90 g 1 02/04/2025 02/04/2025 Discontinued nitrofurantoin, macrocrystals 25 mg / nitrofurantoin, monohydrate 75 mg oral capsule (1 source) Nitrofuran Antibacterial Start: 07-06-2022 End: 07-13-2022 take 1 capsule by mouth twice daily nitrofurantoin monohydrate and macrocrystal (MACROBID) 100 mg capsule Indications: Urinary frequency Take 1 capsule by mouth twice daily for 7 days. 14 capsule 0 07/06/2022 07/13/2022 Active Comment on above: Take 1 capsule by [facility] twice daily for 7 days. nutritional supplement (2 sources) Start: 06-17-2023 nutritional supplement Probiotic and prebiotic gummy, 0 Refill(s) Start Date: 06/17/23 Status: Ordered ondansetron 4 mg oral tablet (8 sources) Serotonin-3 Receptor Antagonist Start: 04-05-2025 take 1 tablet by mouth every eight hours as needed ondansetron (ZOFRAN) 4 mg tablet Take 1 tablet by mouth every 8 hours as needed for nausea/vomiting. 30 tablet 1 04/05/2025 Active Start: 05-02-2022 End: 05-05-2022 ondansetron 4 mg oral tablet , disintegrating Dose : 4 mg = 1 tab(s), Oral, q8h, PRN as needed for nausea/vomiting, X 3 day(s), # 8 tab(s), 0 Refill(s), 05/05/22 19:19:00 EDT Start Date: 05/02/22 Stop Date: 05/05/22 Status: Ordered oxyCODONE hydrochloride 5 mg oral tablet (1 source) Opioid Agonist Start: 10-23-2024 End: 10-30-2024 take 1 tablet by mouth every six hours as needed for pain oxyCODONE IR (ROXICODONE) 5 mg immediate release tablet Indications: Acute postoperative pain Take 1 tablet by mouth every 6 hours as needed for pain for up to 7 days. 28 tablet 10/23/2024 10/30/2024 Active predniSONE 20 mg oral tablet (7 sources) Start: 09-14-2024 End: 09-18-2024 take 2 tablets by mouth once daily at mealtime predniSONE (DELTASONE) 20 mg tablet Indications: Sinobronchitis Take 2 tablets by mouth once daily for 4 days. Take daily with food. 8 tablet 09/14/2024 09/18/2024 Active Start: 08-03-2022 End: 10-01-2022 predniSONE (DELTASONE) 10 mg tablet Take 4 tabs daily for 3 days, then 2 tabs daily for 3 days, then 1 tab daily for 3 days with food. 21 tablet 0 08/03/2022 10/01/2022 Discontinued (Course of therapy completed) Comment on above: Take 4 tabs daily fo r 3 days, then 2 tabs daily for 3 days, then 1 tab daily for 3 days with food. rimegepant 75 mg disintegrating oral tablet (8 sources) Start: 04-05-20 End: 07-14-20 take 1 tablet by mouth once daily as needed for headache, then take 1 tablet by mouth every twenty-four hours as needed for headache rimegepant (NURTEC ODT) 75 mg disintegrating tablet Take 1 tablet by mouth once daily as needed for migraine headache (see administration instructions). No more than 1 dose in 24 hours. Do not swallow whole. Allow tablet to dissolve in mouth. 8 tablet 5 07/14/2025 Active valACYclovir 500 mg oral tablet (20 sources) Herpesvirus Nucleoside Analog DNA Polymerase Inhibitor, Herpes Simplex Virus Nucleoside Analog DNA Polymerase Inhibitor, Herpes Zoster Virus Nucleoside Analog DNA Polymerase Inhibitor Start: 05-06-20 take 4 tablets by mouth twice daily valACYclovir 500 mg oral tablet TAKE 4 TABLETS BY MOUTH TWICE A DAY FOR 1 DAY AT EARLIEST ONSET OF SYMPTOMS Start Date: 05/06/23 Status: Ordered Start: 01-09-2021 End: 11-17-2024 valACYclovir (VALTREX) 500 m g tablet At earliest onset of symptoms take 2 gms , 2 times a day for 1 day 8 tablet 3 11/17/2024 Active Comment on above: At earliest onset of symptoms take 2 gms , 2 times a day for 1 day Vitamin B Complex with C oral tablet (2 sources) Start: 10-17-2023 Vitamin B Complex with C oral tablet Oral, qDay, 0 Refill(s) Start Date: 10/17/23 Status: Ordered vitamin b12 0.05 mg oral tablet (2 sources) Vitamin B12 Start: 09-10-2022 take 1 tablet by mouth once daily Cyanocobalamin (Vitamin B-12) (Vitamin B-12) 50 mcg Tablet Active 50 MCG PO DAILY September 10, 2022 12:00am Vitamin D and K oral tablet (2 sources) Start: 10-17-2023 Vitamin D and K oral tablet 0 Refill(s) Start Date: 10/17/23 Status: Ordered Vitamin E (2 sources) Start: 09-02-2023 vitamin E Oral, 0 Refill(s) Start Date: 09/02/23 Status: Ordered Completed/Discontinued Medications Medication Drug Class(es) Dates Sig (Normalized) Sig (Original) acetaminophen 500 mg oral tablet (11 sources) Start: 02-26-2022 End: 05-07-2022 take 2 tablets by mouth every six hours as needed acetaminophen (TYLENOL EXTRA STRENGTH) 500 mg tablet Take 2 tablets by mouth every 6 hours as needed for pain. 40 tablet 0 02/26/2022 05/07/2022 Discontinued Comment on above: Take 2 tablets by [facility] every 6 hours as needed for pain. cyclobenzaprine hydrochloride 10 mg oral tablet (2 sources) Muscle Relaxant Start: 10-25-2021 End: 02-12-2022 take 1 tablet by mouth once daily at bedtime cyclobenzaprine (FLEXERIL) 10 mg tablet Indications: Thunderclap headache Take 1 tablet by mouth daily at bedtime. 30 tablet 0 10/25/2021 02/12/2022 Discontinued Comment on above: Take 1 tablet by kevin daily at bedtime. docusate sodium 100 mg oral capsule (11 sources) Start: 02-26-2022 End: 05-07-2022 take 1 capsule by mouth twice daily docusate sodium (COLACE) 100 mg capsule Take 1 capsule by mouth twice daily. 40 capsule 0 02/26/2022 05/07/2022 Discontinued Comment on above: Take 1 capsule by mo [facility] twice daily. FLUoxetine 40 mg oral capsule (7 sources) Serotonin Reuptake Inhibitor Start: 04-18-2022 End: 05-07-2022 take 1 capsule by mouth once daily FLUoxetine (PROZAC) 40 mg capsule Take 1 capsule by mouth once daily. 30 capsule 11 04/20/2022 05/07/2022 Discontinued (Side Effects) Comment on above: Take 1 capsule by mo [facility] once daily. ibuprofen 600 mg oral tablet (11 sources) Nonsteroidal Anti-inflammatory Drug Start: 02-26-2022 End: 05-07-2022 take 1 tablet by mouth every six hours as needed ibuprofen (MOTRIN) 600 mg tablet Take 1 tablet by mouth every 6 hours as needed for pain. 40 tablet 0 02/26/2022 05/07/2022 Discontinued Comment on above: Take 1 tablet by kevin every 6 hours as needed for pain. metFORMIN hydrochloride 500 mg oral tablet (4 sources) Biguanide Start: 03-22-2023 End: 07-13-2024 take 30-30.9 tablets by mouth once daily at breakfast metFORMIN (GLUCOPHAGE) 500 mg tablet Indications: Mixed hyperlipidemia , Class 1 drug-induced obesity with serious comorbidity and body mass index (BMI) of 30.0 to 30.9 in adult Take 1 tablet by mouth daily with breakfast. 30 tablet 2 03/22/2023 07/13/2024 Discontinued Comment on above: Take 1 tablet by kevin daily with breakfast. naratriptan 1 mg oral tablet (20 sources) Serotonin-1b and Serotonin-1d Receptor Agonist Start: 02-18-2023 End: 09-09-2024 Naratriptan HCl 1 mg tab TAKE 1 TABLET TWICE DAILY INSTRUCTED X 4 DAYS MONTHLY (STARTING 1 DAY PRIOR TO CYCLE). 9 tablet 2 02/18/2023 09/09/2024 Discontinued Start: 11-20-2022 End: 02-18-2023 Naratriptan HCl (AMERGE) 1 m g tab Take 1 tablet twice daily as instructed x 4 days monthly (starting 1 day prior to cycle). 9 tablet 5 12/07/2022 02/18/2023 Discontinued Start: 09-18-2022 End: 11-17-2022 Naratriptan HCl (AMERGE) 1 m g tab Take 1 tablet twice daily as instructed x 4 days monthly (starting 1 day prior to cycle). 9 tablet 2 09/18/2022 11/17/2022 Discontinued Start: 07-30-2022 Naratriptan HC l (AMERGE) 1 mg tab Take 1 tablet twice daily as instructed x 4 days monthly (starting 1 day prior to cycle). 9 tablet 2 07/30/2022 Active Comment on above: Take 1 tablet twice daily as instructed x 4 days monthly (starting 1 day prior to cycle). polyethylene glycol 3350 127785 mg / potassium chloride 2970 mg / sodium bicarbonate 6740 mg / sodium chloride 5860 mg / sodium sulfate 35684 mg powder for oral solution (20 sources) Osmotic Laxative Start: 02-07-2022 End: 12-07-2022 peg 3350-Electrolytes (GOLYTELY) 236-22.74-6.74 -5.86 gram suspension Indications: Colon cancer screening Refer to printed prep instructions from your provider. 4000 mL 0 02/07/2022 12/07/2022 Discontinued Comment on above: Refer to printed pre p instructions from your provider. rizatriptan 5 mg oral tablet (20 sources) Serotonin-1b and Serotonin-1d Receptor Agonist Start: 05-03-2023 End: 11-10-2023 rizatriptan 10 mg oral tablet Dose : 10 mg = 1 tab(s), Oral, Once, PRN as needed for migraine headache, # 12 tab(s), 0 Refill(s) Start Date: 05/06/23 Status: Ordered Start: 10-25-2021 End: 04-13-2025 take 1 tablet by mouth every two hours as needed rizatriptan (MAXALT) 5 mg tablet Indications: Thunderclap headache Take 1 tablet (5 mg) by mouth as needed. May repeat in 2 hours if needed 20 tablet 11/17/2024 04/13/2025 Discontinued Comment on above: Take 1 tablet by kevin th as needed. May repeat in 2 hours if needed Take 1 tablet by kevin th as needed (at onset of headache. May repeat after 2 hours.). Do not exceed 20 mg per day. topiramate 25 mg oral tablet (20 sources) Start: 10-01-2022 End: 12-07-2022 take 1 tablet by mouth once daily, then take 2 tablets by mouth at bedtime, then take 3 tablets by mouth at bedtime topiramate (TOPAMAX) 25 mg tablet Take 1 tablet by mouth once daily. Take 2 tablets at bedtime x1 week and then increase to 3 tablets at bedtime and continue. 30 tablet 2 10/01/2022 12/07/2022 Discontinued Start: 08-02-2022 topiramate 25 mg oral tablet Dose : 50 mg = 2 tab(s), 0 Refill(s) Start Date: 08/02/22 Status: Ordered Start: 07-30-2022 End: 10-01-2022 topiramate (TOPAMAX) 25 mg t ablet Take 2 tablets at bedtime x1 week and then increase to 3 tablets at bedtime and continue. 90 tablet 2 07/30/2022 10/01/2022 Discontinued Start: 03-29-2022 take 50 mg by mouth at bedtime Topiramate Active 50 MG PO AT BEDTIME March 29, 2022 12:00am Start: 10-03-2021 End: 07-30-2022 take 25 mg by mouth once daily Topiramate Active 25 MG PO DAILY March 29, 2022 12:00am Comment on above: start at 25 mgs once a day for 7 days and then increase to 25 mgs 2 times a day. Take 2 tablets at be dtime x1 week and then increase to 3 tablets at bedtime and continue. Take 1 tablet by kevin th once daily. Take 2 tablets at bedtime x1 week and then increase to 3 tablets at bedtime and continue. Problems Active Problems Problem Classification Problem Date Documented Da te Episodic/Chronic Administrative/social admission (2 sources) Education and/or schooling finding; Translations: [Problems related to education and literacy, unspecified] Episodic Anxiety disorders (20 sources) Anxiety; Translations: [Anxiety disorder, unspecified] Onset: 1 11-24-2020 Chronic Conditions associated with dizziness or vertigo (20 sources) Dizziness and giddiness; Translations: [Dizziness and giddiness] Onset: 2 Episodic Diseases of white blood cells (4 sources) White blood cell count abnormal; Translations: [Disorder of white blood cells, unspecified] Onset: 5 01-20-2025 Chronic Disorders of lipid metabolism (2 sources) Hypercholesterolemia; Translations: [Pure hypercholesterolemia, unspecified] Onset: 4 11-17-2024 Chronic Endometriosis (20 sources) Endometriosis (clinical); Translations: [Endometriosis, unspecified] 11-21-2005 Chronic Esophageal disorders (20 sources) Gastroesophageal reflux disease; Translations: [Gastro-esophageal reflux disease without esophagitis] Onset: 3 09-07-2013 Chronic Genitourinary symptoms and ill-defined conditions (2 sources) Female stress incontinence; Translations: [Stress incontinence (female) (male)] Chronic Genitourinary symptoms and ill-defined conditions (1 source) Increased frequency of urination; Translations: [Frequency of micturition] Episodic Headache; including migraine (20 sources) Migraine; Translations: [Migraine, unspecified, not intractable, without status migrainosus] Onset: 5 07-31-2021 Chronic Menopausal disorders (4 sources) Menopause finding; Translations: [Perimenopausal state] 05-06-2023 Chronic Nausea and vomiting (1 source) Nausea; Translations: [Nausea] Episodic Other aftercare (2 sources) Drug therapy status 06-17-2023 Episodic Other aftercare (1 source) Surgical follow-up; Translations: [Encounter for follow-up examination after completed treatment for conditions other than malignant neoplasm] 12-07-2024 Episodic Other aftercare (1 source) Long-term current use of hormonal contraceptive; Translations: [MCC (current) use of hormonal 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] 04-05-2025 Episodic Other connective tissue disease (1 source) Pain in limb; Translations: [Pain in unspecified limb] Onset: 4 Episodic Other connective tissue disease (1 source) Pain in lower limb 04-02-2024 Episodic Other connective tissue disease (1 source) Bilateral ganglion cyst of wrists; Translations: [Ganglion, right wrist] 11-24-2020 Episodic Other gastrointestinal disorders (4 sources) History of diverticulitis 07-24-2019 Episodic Other lower respiratory disease (2 sources) Cough; Translations: [Acute cough] 09-09-2024 Episodic Other nervous system disorders (1 source) H/O: migraine; Translations: [Personal history of other diseases of the nervous system and sense organs] Episodic Other non-traumatic joint disorders (1 source) Bilateral wrist pain; Translations: [Pain in right wrist] 11-24-2020 Episodic Other nutritional; endocrine; and metabolic disorders (4 sources) Overweight 07-24-2019 Episodic Other nutritional; endocrine; and metabolic disorders (1 source) Weight increased; Translations: [Abnormal weight gain] 12-02-2024 Episodic Other nutritional; endocrine; and metabolic disorders (1 source) Abnormal weight gain; Translations: [Abnormal weight gain] 12-16-2024 Episodic Other screening for suspected conditions (not mental disorders or infectious disease) (9 sources) Patient encounter status; Translations: [Encounter for screening for malignant neoplasm of colon] Onset: Episodic Other skin disorders (1 source) Eruption; Translations: [Rash and other nonspecific skin eruption] Episodic Other upper respiratory infections (1 source) Chronic sinusitis; Translations: [Chronic sinusitis, unspecified] 09-14-2024 Chronic Other upper respiratory infections (2 sources) Acute upper respiratory infection; Translations: [Acute upper respiratory infection, unspecified] 05-30-2023 Episodic Residual codes; unclassified (2 sources) Postoperative state; Translations: [Other specified postprocedural states] Episodic Spondylosis; intervertebral disc disorders; other back problems (4 sources) Neck pain; Translations: [Cervicalgia] Episodic Unclassified (8 sources) Patient encounter status 07-27-2019 Unclassified (4 sources) Screening status 07-27-2019 Past or Other Problems Problem Classification Problem Date Documented Da te Episodic/Chronic Abdominal pain (20 sources) Abdominal pain; Translations: [Unspecified abdominal pain] Onset: 09-07-2013 Resolved: 11-24-2020 11-24-2020 Episodic Anal and rectal conditions (2 sources) Anal fissure; Translations: [Anal fissure, unspecified] Onset: 02-04-2025 02-04-2025 Episodic Biliary tract disease (20 sources) Biliary dyskinesia; Translations: [Other specified diseases of gallbladder] Onset: 10-30-2013 Resolved: 11-24-2020 11-24-2020 Episodic Headache; including migraine (2 sources) Thunderclap headache; Translations: [Primary thunderclap headache] Onset: 11-17-2024 11-17-2024 Episodic Hemorrhoids (10 sources) Hemorrhoids; Translations: [Unspecified hemorrhoids] Onset: 07-23-2024 Episodic Malaise and fatigue (2 sources) Fatigue; Translations: [Other fatigue] Onset: 07-22-2024 07-16-2024 Episodic Menstrual disorders (20 sources) Irregular periods; Translations: [Irregular menstruation, unspecified] Resolved: 08-08-2012 12-26-2023 Chronic Other aftercare (1 source) MCC (current) use of hormonal 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; 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] Onset: 04-05-2025 Episodic Other gastrointestinal disorders (20 sources) Altered bowel function; Translations: [Other specified symptoms and signs involving the digestive system and abdomen] Onset: 09-07-2013 Resolved: 11-24-2020 11-24-2020 Episodic Other nervous system disorders (1 source) Other acute postprocedural pain; Translations: [Acute postoperative pain] Onset: 10-23-2024 Episodic Screening and history of mental health and substance abuse codes (1 source) Encounter for screening for depression; Translations: [Screening for depression] Onset: 04-05-2025 Episodic Results Test Name Value Interpretation Reference Range Facility [facility] 07-14-2025 CNOV Office Visit (MEAGHAN ) KATE ERED ([id number]) 1975 F Date Time Provider Department 07/14/25 8:30 AM AMANDA EWING During your visit today, we recorded the following information about you: Respiration Weight 16/minute 80.1 kg Amanda Ewing PA-C 07/14/2025 9:28 AM Signed [facility] for General Neurology Name: Kate Reed Age: [age] year old Gender: female Primary Care Provider: Carol Lebron MD Assessment/Plan: 07/14/2025 - General Neurology, Amanda Ewing PA-C ASSESSMENT ASSESSMENT/PLAN: 1. Migraine without aura and without status migrainosus, not intractable - ICD9: 346.10, ICD10: G43.009 (primary diagnosis) 2. Persistent postural-perceptual dizziness - ICD9: 780.4, ICD10: H81.8X9 3. Vestibular migraine - ICD9: 346.80, ICD10: G43.809 Patient with years of headaches and dizziness. Last seen in March where she was restarted on gabapentin which had worked for her in the past. Takes 300mg twice a day and notes near resolution of symptoms. 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 Nurtec works well for her with no side effects. Does report some mild daytime fatigue with the gabapentin when she takes it in the morning but otherwise is doing very well with her current regiment. No new symptoms that would warrant additional workup at this time. Will continue with gabapentin 300 mg twice a day and Nurtec for abortive relief. Does express some interest in possibly coming off gabapentin in the future. Did discuss possibly transitioning Nurtec to a preventative versus other therapies that may be beneficial. Will discuss further at next appointment in 6 months. Amanda Ewing PA-C Encounter Diagnosis ICD-10-CM 1. Migraine without aura and without status migrainosus, not intractable G43.009 2. Persistent postural-perceptual dizziness H81.8X9 3. Vestibular migraine G43.809 Return in about 6 months (around 01/14/2026). Chart, labs,and relevant images reviewed. Chief Complaint:Patient presents with: Follow Up: Tranfer of care Chart Review: Last Filed Values Date of Most Recent Assessment and Plan 04/13/25 Specialty General Neurology Assessment Kate Reed is a 49-year-old female presenting for follow-up primarily due to ongoing dizziness, which she reports occurs more often than not. She describes the dizziness as a persistent rocking or imbalance sensation rather than a spinning vertigo. The symptoms are exacerbated by complex visual environments, significantly impacting her quality of life-for example, she avoids stores and had difficulty attending a recent [employer] game. The dizziness began after a significant vertigo episode in 2018 and has since become chronic. She has been taking Dramamine daily for the past six months, having previously used it on an as-needed basis. She also experiences migraines, which had been well-controlled until she was weaned off Celexa due to a low WBC count. A trial of Wellbutrin was unsuccessful, and she is now back on Celexa 20 mg daily. While off Celexa, she experienced an 11-day migraine, likely worsened by her menstrual cycle. Outside of this episode, her migraines occur approximately once monthly and are responsive to Nurtec, due to triptans (Rizatriptan, Suamtriptan and Naratriptan) which appear to have lost effectiveness. Impression is that her dizziness is consistent with persistent postural-perceptual dizziness (PPPD), likely triggered by the original vertigo episode in 2018. She had previously responded well to gabapentin, and it is recommended she resume gabapentin at 300 mg at bedtime for two weeks, with plans to increase to twice daily. This may also aid in migraine prevention and anxiety management. Nurtec may continue as her rescue medication. It is advised she begin weaning off Dramamine, as chronic use may contribute to vestibular dysfunction. Referral to vestibular therapy is recommended, as is cognitive behavioral therapy with Dr. Childress, given the significant lifestyle impact of her symptoms. Additionally, a prescription for Toradol 10 mg three times daily for 5 days was sent in to be used as an emergency measure in the event of another prolonged migraine lasting 3 days or more. She will follow up in three months or sooner if needed. Plan 1. Preventative: Gabapentin taper 2. Abortive: Nurtec 75 mg ODT can be taken once daily as needed to treat an acute migraine. Nurtec will disolve on or underneath your tongue and should be taken at the first sign of a migraine attack. 3. Vestibular therapy 4. Wean off dramamine 5. Consult to psychology- Dr. Childress 6. Keep headache diary/ Use migraine jone mamadou to keep track of headache days 7. Follow up in 3 months HPI: Seen by Jovi Kiser CNP on 04/13/25 for PPPD also with migraines. On tien (more content not included)... Normal [facility] CBC W Auto Differential pane l (Bld)on 05-03-2025 Basophils (Bld) [#/Vol] 0.03 10*3/uL Normal <0.11 [facility] Comment on above: Order Comment: Speci men Type: BLOOD SPECIMENOrdering Facility: [facility] Address: [address] [place] [address] Performed By: #### 5 7021-8 ####[facility] LABCLIA [id number] [place] [address] [place] Basophils/100 WBC (Bld) 0.9 % Normal [facility] Comment on above: Order Comment: Speci men Type: BLOOD SPECIMENOrdering Facility: [facility] Address: [address] [place] [address] Performed By: #### 5 7021-8 ####[facility] LABCLIA [id number] [place] [address] [place] Differential cell count method Nom (Bld) Auto Normal [facility] Comment on above: Order Comment: Speci men Type: BLOOD SPECIMENOrdering Facility: [facility] Address: [address] [place] [address] Performed By: #### 5 7021-8 ####[facility] LABCLIA [id number] [place] [address] [place] Eosinophils (Bld) [#/Vol] 0.13 10*3/uL Normal <0.46 [facility] Comment on above: Order Comment: Speci men Type: BLOOD SPECIMENOrdering Facility: [facility] Address: [address] [place] [address] Performed By: #### 5 7021-8 ####[facility] LABCLIA [id number] [place] [address] [place] Eosinophils/100 WBC (Bld) 3.8 % Normal [facility] Comment on above: Order Comment: Speci men Type: BLOOD SPECIMENOrdering Facility: [facility] Address: [address] [place] [address] Performed By: #### 5 7021-8 ####[facility] LABIA [id number] [place] [address] [place] Erythrocyte distribution width (RBC) [Ratio] 11.7 % Normal 11.5-15.0 [facility] Comment on above: Order Comment: Speci men Type: BLOOD SPECIMENOrdering Facility: [facility] Address: [address] [place] [address] Performed By: #### 5 7021-8 ####[facility] LABIA [id number] [place] [address] [place] Hematocrit (Bld) [Volume fraction] 37.6 % Normal 36.0-46.0 [facility] Comment on above: Order Comment: Speci men Type: BLOOD SPECIMENOrdering Facility: [facility] Address: [address] [place] [address] Performed By: #### 5 7021-8 ####[facility] LABIA [id number] [place] [address] [place] Hemoglobin (Bld) [Mass/Vol] 12.3 g/dL Normal 11.5-15.5 [facility] Comment on above: Order Comment: Speci men Type: BLOOD SPECIMENOrdering Facility: [facility] Address: [address] [place] [address] Performed By: #### 5 7021-8 ####[facility] LABIA [id number] [place] [id number] [place] Immature granulocytes (Bld) [#/Vol] 10*3/uL Normal <0.10 [facility] Comment on above: Order Comment: Speci men Type: BLOOD SPECIMENOrdering Facility: [facility] Address: [address] [place] [address] Performed By: #### 5 7021-8 ####[facility] LABCLIA [id number] [place] [address] [place] Immature granulocytes/100 WBC (Bld) 0.3 % Normal [facility] Comment on above: Order Comment: Speci men Type: BLOOD SPECIMENOrdering Facility: [facility] Address: [address] [place] [address] Performed By: #### 5 7021-8 ####[facility] LABCLIA [id number] [place] [address] [place] Lymphocytes (Bld) [#/Vol] 0.76 10*3/uL Low 1.00-4.00 [facility] Comment on above: Order Comment: Speci men Type: BLOOD SPECIMENOrdering Facility: [facility] Address: [address] [place] [address] Performed By: #### 5 7021-8 ####[facility] LABCLIA [id number] [place] [address] [place] Lymphocytes/100 WBC (Bld) 22.0 % Normal [facility] Comment on above: Order Comment: Speci men Type: BLOOD SPECIMENOrdering Facility: [facility] Address: [address] [place] [address] Performed By: #### 5 7021-8 ####[facility] LABCLIA [id number] [place] [address] [place] MCH (RBC) [Entitic mass] 31.0 pg Normal 26.0-34.0 [facility] Comment on above: Order Comment: Speci men Type: BLOOD SPECIMENOrdering Facility: [facility] Address: [address] [place] [address] Performed By: #### 5 7021-8 ####[facility] LABCLIA [id number] [place] [id number] [place] MCHC (RBC) [Mass/Vol] 32.7 g/dL Normal 30.5-36.0 [facility] Comment on above: Order Comment: Speci men Type: BLOOD SPECIMENOrdering Facility: [facility] Address: [address] [place] [address] Performed By: #### 5 7021-8 ####[facility] LABIA [id number] [place] [address] [place] MCV (RBC) [Entitic vol] 94.7 fL Normal 80.0-100.0 [facility] Comment on above: Order Comment: Speci men Type: BLOOD SPECIMENOrdering Facility: [facility] Address: [address] [place] [address] Performed By: #### 5 7021-8 ####[facility] LABIA [id number] [place] [address] [place] Monocytes (Bld) [#/Vol] 0.46 10*3/uL Normal <0.87 [facility] Comment on above: Order Comment: Speci men Type: BLOOD SPECIMENOrdering Facility: [facility] Address: [address] [place] [address] Performed By: #### 5 7021-8 ####[facility] LABIA [id number] [place] [address] [place] Monocytes/100 WBC (Bld) 13.3 % Normal [facility] Comment on above: Order Comment: Speci men Type: BLOOD SPECIMENOrdering Facility: [facility] Address: [address] [place] [address] Performed By: #### 5 7021-8 ####[facility] LABIA [id number] [place] [address] [place] Neutrophils (Bld) [#/Vol] 2.07 10*3/uL Normal 1.45-7.50 [facility] Comment on above: Order Comment: Speci men Type: BLOOD SPECIMENOrdering Facility: [facility] Address: [address] [place] [address] Performed By: #### 5 7021-8 ####[facility] LABCLIA [id number] [place] [address] [place] Neutrophils/100 WBC (Bld) 59.7 % Normal [facility] Comment on above: Order Comment: Speci men Type: BLOOD SPECIMENOrdering Facility: [facility] Address: [address] [place] [address] Performed By: #### 5 7021-8 ####[facility] LABCLIA [id number] [address], [place] [address] [place] Nucleated RBC (Bld) [#/Vol] 10*3/uL Normal <0.01 [facility] Comment on above: Order Comment: Speci men Type: BLOOD SPECIMENOrdering Facility: [facility] Address: [address] [place] [address] Performed By: #### 5 7021-8 ####[facility] LABIA [id number] [place] [address] [place] Nucleated RBC/100 WBC (Bld) [Ratio] 0.0 /100 WBC Normal [facility] Comment on above: Order Comment: Speci men Type: BLOOD SPECIMENOrdering Facility: [facility] Address: [address] [place] [address] Performed By: #### 5 7021-8 ####[facility] LABIA [id number] [place] [address] [place] Platelet mean volume (Bld) [Entitic vol] 9.8 fL Normal 9.0-12.7 [facility] Comment on above: Order Comment: Speci men Type: BLOOD SPECIMENOrdering Facility: [facility] Address: [address] [place] [address] Performed By: #### 5 7021-8 ####[facility] LABIA [id number] [place] [id number] [place] Platelets (Bld) [#/Vol] 257 10*3/uL Normal 150-400 [facility] Comment on above: Order Comment: Speci men Type: BLOOD SPECIMENOrdering Facility: [facility] Address: [address] [place] [address] Performed By: #### 5 7021-8 ####[facility] LABCLIA [id number] [place] [address] [place] RBC (Bld) [#/Vol] 3.97 10*6/uL Normal 3.90-5.20 [facility] Comment on above: Order Comment: Speci men Type: BLOOD SPECIMENOrdering Facility: [facility] Address: [address] [place] [address] Performed By: #### 5 7021-8 ####[facility] LABCLIA [id number] [place] [address] [place] WBC (Bld) [#/Vol] 3.46 10*3/uL Low 3.70-11.00 [facility] Comment on above: Order Comment: Speci men Type: BLOOD SPECIMENOrdering Facility: [facility] Address: [address] [place] [address] Performed By: #### 5 7021-8 ####[facility] LABIA [id number] [place] [address] [place] CNOVon 04-13-2025 CNOV Office Visit (LENNOX ) KATE REED ([id number]) 1975 F Date Time Provider Department 04/13/25 10:30 AM JOVI KISER During your visit today, we recorded the following information about you: Temperature Pulse Blood pressure Weight 97.7 degrees 78/minute 124/70 82.9 kg Height 1.676 m Jovi Kiser APRN.INDUCTION COORDINATION ENGINEER 04/13/2025 12:31 PM Signed [facility] for General Neurology Name: Kate Reed Age: [age] year old Gender: female Primary Care Provider: Carol Lebron MD 04/13/2025 - General Neurology, Jovi Kiser APRN.INDUCTION COORDINATION ENGINEER ASSESSMENT Kate Reed is a 49-year-old female presenting for follow-up primarily due to ongoing dizziness, which she reports occurs more often than not. She describes the dizziness as a persistent rocking or imbalance sensation rather than a spinning vertigo. The symptoms are exacerbated by complex visual environments, significantly impacting her quality of life-for example, she avoids stores and had difficulty attending a recent [employer] game. The dizziness began after a significant vertigo episode in 2018 and has since become chronic. She has been taking Dramamine daily for the past six months, having previously used it on an as-needed basis. She also experiences migraines, which had been well-controlled until she was weaned off Celexa due to a low WBC count. A trial of Wellbutrin was unsuccessful, and she is now back on Celexa 20 mg daily. While off Celexa, she experienced an 11-day migraine, likely worsened by her menstrual cycle. Outside of this episode, her migraines occur approximately once monthly and are responsive to Nurtec, due to triptans (Rizatriptan, Suamtriptan and Naratriptan) which appear to have lost effectiveness. Impression is that her dizziness is consistent with persistent postural-perceptual dizziness (PPPD), likely triggered by the original vertigo episode in 2018. She had previously responded well to gabapentin, and it is recommended she resume gabapentin at 300 mg at bedtime for two weeks, with plans to increase to twice daily. This may also aid in migraine prevention and anxiety management. Nurtec may continue as her rescue medication. It is advised she begin weaning off Dramamine, as chronic use may contribute to vestibular dysfunction. Referral to vestibular therapy is recommended, as is cognitive behavioral therapy with Dr. Childress, given the significant lifestyle impact of her symptoms. Additionally, a prescription for Toradol 10 mg three times daily for 5 days was sent in to be used as an emergency measure in the event of another prolonged migraine lasting 3 days or more. She will follow up in three months or sooner if needed. PLAN 1. Preventative: Gabapentin taper 2. Abortive: Nurtec 75 mg ODT can be taken once daily as needed to treat an acute migraine. Nurtec will disolve on or underneath your tongue and should be taken at the first sign of a migraine attack. 3. Vestibular therapy 4. Wean off dramamine 5. Consult to psychology- Dr. Childress 6. Keep headache diary/ Use [employer] mamadou to keep track of headache days 7. Follow up in 3 months Encounter Diagnosis ICD-10-CM 1. Persistent postural-perceptual dizziness H81.8X9 CONSULT TO PSYCHOLOGY CONSULT TO PHYSICAL THERAPY 2. Migraine without aura and without status migrainosus, not intractable G43.009 Kate Wilsonleora has been previously approved for an Oral Calcitonin Gene-Related Peptide Receptor Antagonist (GEPANT) Rimegepant for the treatment of abortive use. The patient has demonstrated the following: Provider attests patient has had a positive clinical response: Yes Patient will not use with another Oral Calcitonin Gene-Related Peptide Receptor Antagonist (GEPANT): No Patient's quality of life and ability to perform ADLs has improved: Yes The patient has tried and failed the following : Naratriptan Rizatriptan Sumatriptan We suggest the patient continue treatment with GEPANT Rimegepant. The following preventative medications have been tried for three or more months without benefit: Topamax (side effects) Gabapentin Celexa The following abortive medications have been tried but require high frequency use which can lead to Medication Overuse Headache: Naratriptan Rizatriptan Sumatriptan Return in about 3 months (around 07/14/2025), or if symptoms worsen or fail to improve- Follow up with Amanda Ewing PA-C. Chart, labs,and relevant images reviewed. Chief Complaint:Patient presents with: Migraine: Started years ago. This last one started the March 31 and lasted 11 days. Is taking Nurtec. Was on Rizotriptan. Dizziness: Going on since 2018, when her initial episode started. Has them more days than she doesn't. She experienced vertigo back then. Feels off balance. Chart Review: 11/14/22 (G43.829) Menstrual migraine without status (more content not included)... [facility] Telephone (INTMWS) KATE REED ([id number]) 1975 F Date Time Provider Department 04/13/25 CAROL LEBRON INTMWS During your visit today, we recorded the following information about you: Carol Lebron MD 04/13/2025 11:42 AM Signed Rx medication for patients travel Allergies As of Date: 04/13/2025 Noted Allergy Reaction ERYTHROMYCIN 10/15/2005 8 - GI Upset HONEY 07/04/2009 7 - Swelling Date Reviewed: 04/13/2025 Reviewed by: Jami Haynes MA - Fully Assessed Primary Visit Diagnosis:Panic attacks [F41.0] Order(s):ALPRAZolam (XANAX) 0.5 mg tabletTake 1 tablet by mouth three times a day as needed for up to 7 days.Disp: 15 tabletRfl: 0 Prescriptions as of 04/13/2025 - gabapentin (NEURONTIN) 300 mg capsule Take 1 capsule by mouth daily at bedtime for 14 days, THEN 1 capsule two times a day for 90 days. - rimegepant (NURTEC ODT) 75 mg disintegrating tablet Take 1 tablet by mouth once daily as needed for migraine headache (see administration instructions). No more than 1 dose in 24 hours. Do not swallow whole. Allow tablet to dissolve in mouth. - keTORolac (TORADOL) 10 mg tablet Take 1 tablet by mouth three times a day for 5 days. - ALPRAZolam (XANAX) 0.5 mg tablet Take 1 tablet by mouth three times a day as needed for up to 7 days. - Norethindrone Acet-Ethinyl Est (,) 1-20 mg-mcg per tablet Take 1 tablet by mouth once daily. - ondansetron (ZOFRAN) 4 mg tablet Take 1 tablet by mouth every 8 hours as needed for nausea/vomiting. - citalopram (CELEXA) 20 mg tablet Take 1 tablet by mouth once daily. - MEDICATION, NON-DATABASE Take by mouth once daily. D3 + k2 vitamin - docosahexaenoic acid/epa (FISH OIL ORAL) Take 1,000 mg by mouth once daily. - MEDICATION, NON-DATABASE Take 1,200 mg by mouth once daily. Red yeast rice extract - ASHWAGANDHA EXTRACT ORAL Take 600 mg by mouth once daily. - MEDICATION, NON-DATABASE Take by mouth once daily. Curcumin and rexveratrol 1 tsp daily - B.animalis,bifid,infantis,lo ng (PROBIOTIC 4X ORAL) Take by mouth once daily. - MEDICATION, NON-DATABASE Take by mouth once daily. Pre biotic - buPROPion (WELLBUTRIN) 75 mg tablet Take 1 tablet by mouth two times a day. - NIFEdipine rectal ointment 0.2% (CPD) Apply a pea-sized amount by RECTAL route three times a day. - medroxyPROGESTERone (PROVERA) 10 mg tablet Take 1 tablet by mouth once daily. FOR 12 DAYS EACH MONTH - estradiol (VIVELLE-DOT) 0.075 mg/24 hr patch Use twice weekly on abdomen or buttock - valACYclovir (VALTREX) 500 mg tablet At earliest onset of symptoms take 2 gms , 2 times a day for 1 day - cyanocobalamin, vitamin B-12, (VITAMIN B-12 ORAL) Take by mouth once daily. - cholecalciferol, vitamin D3, (VITAMIN D3 ORAL) Take by mouth once daily. - magnesium carb,citrate,oxide (MAGNESIUM COMPLEX ORAL) Take by mouth once daily. - meclizine (ANTIVERT) 25 mg tab Take 1 tablet by mouth once daily as needed. Meds Comments as of 07/06/2010: Problem List As Of Date 04/13/2025 Noted Resolved Irregular menstrual cycle [N92.6] 08/08/2012 ENDOMETRIOSIS NOS [N80.9] Abdominal pain [R10.9] 09/07/2013 11/24/2020 Altered bowel function [R19.8] 09/07/2013 11/24/2020 GERD (gastroesophageal reflux disease) [K21.9] 09/07/2013 Biliary dyskinesia [K82.8] 10/30/2013 11/24/2020 Chronic cholecystitis without calculus [K81.1] 12/03/2013 11/24/2020 Anxiety [F41.9] 11/24/2020 Vertigo [R42] 10/16/2022 Prescriptions ordered this encounter Disp Refills Start End ALPRAZOLAM 0.5 MG TABLET 15 t* 0 04/13/2025 04/20/2025 Route: PO Sig: Take 1 tablet by mouth three times a day as needed for up to 7 days. Encounter Status:Closed by CAROL LEBRON on 04/13/25 [facility] CNOVon 04-05-2025 CNOV Office Visit (INTMWS ) KATE REED ([id number]) 1975 Date Time Provider Department 04/05/25 3:20 PM CAROL LEBRON INTMWS During your visit today, we recorded the following information about you: Pulse Respiration Blood pressure Weight 89/minute 16/minute 138/82 83.7 kg Carol Lebron MD 04/05/2025 3:39 PM Signed We discussed your current medication adjustments and symptoms: - Increase your Celexa (citalopram) dose to 20 mg daily. This has been sent to your pharmacy. We will recheck your blood work in one month to monitor your response to the dose change. - You reported experiencing migraines more frequently since your medication adjustment. To address this: - I prescribed Nurtec (rimegepant) to try as an acute treatment for migraines. Take one tablet as needed when a migraine begins. This dissolves under your tongue and works differently from Maxalt. I provided 10 tablets to start. - I also prescribed Zofran (ondansetron) to help manage nausea associated with migraines. You have 30 tablets available to use as needed. - Continue taking Maxalt (rizatriptan) as previously prescribed if needed, but try Nurtec to see if it works better for you. We discussed your control: - I refilled your Junel (ethinyl estradiol/norethindrone acetate) 21-day cycle prescription. Please follow up with your shell maker lockstitch within the next year to discuss ongoing management and any potential alternatives, especially as you approach age 49. Be mindful of the increased risk of blood clots with this medication. We discussed your recent symptoms and lab results: - Your recent labs were normal, and there is no indication of infection. You mentioned experiencing allergy symptoms (sneezing, itchiness) during outdoor activities, which likely contributed to your discomfort. Allergies typically do not affect white blood cell counts, so your lab results are likely accurate. - If you experience any new or concerning symptoms, please let me know. Next steps: - Start Celexa 20 mg daily and Nurtec as needed for migraines. Use Zofran as needed for nausea. - Recheck your blood work in one month to monitor your response to the medication changes. - Follow up with your shell maker lockstitch within the next year regarding your control. - Let me know if your migraines persist or worsen despite these changes. Enjoy your upcoming trip to [place], [facility] [employer], and [place]! Safe travels! Carol Lebron MD 04/05/2025 6:45 PM Signed Reason for Visit Follow up DENTON Love is a 49-year-old female presenting for evaluation of recent changes in mood and exacerbation of migraines, as well as a refill of her control medication. Kate reports feeling not like herself and experiencing increased sadness and anxiety since her Celexa dosage was reduced from 40 mg to 10 mg. She requests an increase to 20 mg. She also notes a recent exacerbation of migraines, with a 5-day episode that was more prolonged and severe than her usual 1-3 day episodes. She attributes this to a combination of factors, including being outdoors during a fifth-grade camp, hormonal changes during her menstrual cycle, and the reduced Celexa dosage. She describes the migraine pain as ice pick to the christianity and notes associated nausea. She has been using Maxalt for migraine relief but finds it requires multiple doses and is less effective if not taken consistently. She inquires about the possibility of using tramadol injections for migraines, as recommended by a coworker. Kate also reports recent symptoms of sneezing and itchiness, which she attributes to allergies rather than a viral infection. She expresses concern that these symptoms might have affected her recent lab results. Additionally, Kate requests a refill of her Junel control medication, noting that she received her last Pap smear in November at the [facility]. She is aware of the increased risk of blood clots associated with control use after age 50 and confirms that she is still menstruating. She maintains an active lifestyle and stays well-hydrated. She is planning a trip to [place] in April and expresses concern about managing her migraines and associated nausea during the trip. Social History Tobacco Use Smoking status: Never Smokeless tobacco: Never Substance Use Topics Alcohol use: Yes Comment: OCCASIONALLY, once per week Drug use: No Past medical history, appointments, medications, allergies reviewed. Pertinent Lab/Diagnostic Studies are reviewed and discussed today Current Outpatient Medications: MEDICATION, NON-DATABASE docosahexaenoic acid/epa (FISH OIL ORAL) MEDICATION, NON-DATABASE ASHWAGANDHA EXTRACT ORAL MEDICATION, NON-DATABASE B.animalis,bifid,infantis,lo ng (PROBIOTIC 4X ORAL) MEDICATION, NON-DATABASE NIFEdipine rectal ointment (more content not included)... Normal [facility] CBC W Auto Differential pane l (Bld)on 04-03-2025 Basophils (Bld) [#/Vol] 10*3/uL Normal <0.11 [facility] Comment on above: Order Comment: Speci men Type: BLOOD SPECIMENOrdering Facility: [facility] Address: [address] [place] [address] Performed By: #### 5 7021-8 ####[facility] LABCLIA [id number] [place] [address] [place] Basophils/100 WBC (Bld) 0.5 % Normal [facility] Comment on above: Order Comment: Speci men Type: BLOOD SPECIMENOrdering Facility: [facility] Address: [address] [place] [address] Performed By: #### 5 7021-8 ####[facility] LABCLIA [id number] [place] [address] [place] Differential cell count method Nom (Bld) Auto Normal [facility] Comment on above: Order Comment: Speci men Type: BLOOD SPECIMENOrdering Facility: [facility] Address: [address] [place] [address] Performed By: #### 5 7021-8 ####[facility] LABCLIA [id number] [place] [address] [place] Eosinophils (Bld) [#/Vol] 0.06 10*3/uL Normal <0.46 [facility] Comment on above: Order Comment: Speci men Type: BLOOD SPECIMENOrdering Facility: [facility] Address: [address] [place] [address] Performed By: #### 5 7021-8 ####[facility] LABIA [id number] [place] [address] [place] Eosinophils/100 WBC (Bld) 1.4 % Normal [facility] Comment on above: Order Comment: Speci men Type: BLOOD SPECIMENOrdering Facility: [facility] Address: [address] [place] [address] Performed By: #### 5 7021-8 ####[facility] LABIA [id number] [place] [address] [place] Erythrocyte distribution width (RBC) [Ratio] 11.8 % Normal 11.5-15.0 [facility] Comment on above: Order Comment: Speci men Type: BLOOD SPECIMENOrdering Facility: [facility] Address: [address] [place] [address] Performed By: #### 5 7021-8 ####[facility] LABIA [id number] [address] [place] Hematocrit (Bld) [Volume fraction] 41.4 % Normal 36.0-46.0 [facility] Comment on above: Order Comment: Speci men Type: BLOOD SPECIMENOrdering Facility: [facility] Address: [address] [place] [address] Performed By: #### 5 7021-8 ####[facility] LABCLIA [id number] [place] [address] [place] Hemoglobin (Bld) [Mass/Vol] 13.9 g/dL Normal 11.5-15.5 [facility] Comment on above: Order Comment: Speci men Type: BLOOD SPECIMENOrdering Facility: [facility] Address: [address] [place] [address] Performed By: #### 5 7021-8 ####[facility] LABCLIA [id number] [place] [address] [place] Immature granulocytes (Bld) [#/Vol] 10*3/uL Normal <0.10 [facility] Comment on above: Order Comment: Speci men Type: BLOOD SPECIMENOrdering Facility: [facility] Address: [address] [place] [address] Performed By: #### 5 7021-8 ####[facility] LABIA [id number] [place] [address] [place] Immature granulocytes/100 WBC (Bld) 0.2 % Normal [facility] Comment on above: Order Comment: Speci men Type: BLOOD SPECIMENOrdering Facility: [facility] Address: [address] [place] [address] Performed By: #### 5 7021-8 ####[facility] LABIA [id number] [place] [address] [place] Lymphocytes (Bld) [#/Vol] 0.78 10*3/uL Low 1.00-4.00 [facility] Comment on above: Order Comment: Speci men Type: BLOOD SPECIMENOrdering Facility: [facility] Address: [address] [place] [address] Performed By: #### 5 7021-8 ####[facility] LABCLIA [id number] [place] [address] [place] Lymphocytes/100 WBC (Bld) 17.6 % Normal [facility] Comment on above: Order Comment: Speci men Type: BLOOD SPECIMENOrdering Facility: [facility] Address: [address] [place] [address] Performed By: #### 5 7021-8 ####[facility] LABN[facility] [id number] [place] [address] [place] MCH (RBC) [Entitic mass] 31.2 pg Normal 26.0-34.0 [facility] Comment on above: Order Comment: Speci men Type: BLOOD SPECIMENOrdering Facility: [facility] Address: [address] [place] [address] Performed By: #### 5 7021-8 ####[facility] [id number] [place] [address] [place] MCHC (RBC) [Mass/Vol] 33.6 g/dL Normal 30.5-36.0 [facility] Comment on above: Order Comment: Speci men Type: BLOOD SPECIMENOrdering Facility: [facility] Address: [address] [place] [address] Performed By: #### 5 7021-8 ####[facility] [id number] [place] [address] [place] MCV (RBC) [Entitic vol] 93.0 fL Normal 80.0-100.0 [facility] Comment on above: Order Comment: Speci men Type: BLOOD SPECIMENOrdering Facility: [facility] Address: [address] [place] [address] Performed By: #### 5 7021-8 ####[facility] LABN[facility] [id number] [place] [address] [place] Monocytes (Bld) [#/Vol] 0.44 10*3/uL Normal <0.87 [facility] Comment on above: Order Comment: Speci men Type: BLOOD SPECIMENOrdering Facility: [facility] Address: [address] [place], [place] [id number] Performed By: #### 5 7021-8 ####[facility] LABCLIA [id number] [place] [address] [place] Monocytes/100 WBC (Bld) 9.9 % Normal [facility] Comment on above: Order Comment: Speci men Type: BLOOD SPECIMENOrdering Facility: [facility] Address: [address] [place] [address] Performed By: #### 5 7021-8 ####[facility] LABCLIA [id number] [place] [address] [place] Neutrophils (Bld) [#/Vol] 3.13 10*3/uL Normal 1.45-7.50 [facility] Comment on above: Order Comment: Speci men Type: BLOOD SPECIMENOrdering Facility: [facility] Address: [address] [place] [address] Performed By: #### 5 7021-8 ####[facility] LABCLIA [id number] [place] [address] [place] Neutrophils/100 WBC (Bld) 70.4 % Normal [facility] Comment on above: Order Comment: Speci men Type: BLOOD SPECIMENOrdering Facility: [facility] Address: [address] [place] [address] Performed By: #### 5 7021-8 ####[facility] LABCLIA [id number] [place] [address] [place] Nucleated RBC (Bld) [#/Vol] 10*3/uL Normal <0.01 [facility] Comment on above: Order Comment: Speci men Type: BLOOD SPECIMENOrdering Facility: [facility] Address: [address] [place] [address] Performed By: #### 5 7021-8 ####[facility] LABCLIA [id number] [place] [id number] [place] Nucleated RBC/100 WBC (Bld) [Ratio] 0.0 /100 WBC Normal [facility] Comment on above: Order Comment: Speci men Type: BLOOD SPECIMENOrdering Facility: [facility] Address: [address] [place] [address] Performed By: #### 5 7021-8 ####[facility] LABCLIA [id number] [place] [address] [place] Platelet mean volume (Bld) [Entitic vol] 9.6 fL Normal 9.0-12.7 [facility] Comment on above: Order Comment: Speci men Type: BLOOD SPECIMENOrdering Facility: [facility] Address: [address] [place] [address] Performed By: #### 5 7021-8 ####[facility] LABIA [id number] [place] [address] [place] Platelets (Bld) [#/Vol] 312 10*3/uL Normal 150-400 [facility] Comment on above: Order Comment: Speci men Type: BLOOD SPECIMENOrdering Facility: [facility] Address: [address] [place] [address] Performed By: #### 5 7021-8 ####[facility] LABIA [id number] [place] [address] [place] RBC (Bld) [#/Vol] 4.45 10*6/uL Normal 3.90-5.20 [facility] Comment on above: Order Comment: Speci men Type: BLOOD SPECIMENOrdering Facility: [facility] Address: [address] [place] [address] Performed By: #### 5 7021-8 ####[facility] LABIA [id number] [place] [address] [place] WBC (Bld) [#/Vol] 4.44 10*3/uL Normal 3.70-11.00 [facility] Comment on above: Order Comment: Speci men Type: BLOOD SPECIMENOrdering Facility: [facility] Address: [address] [place] [address] Performed By: #### 5 7021-8 ####[facility] LABCLFACUNDO [id number] [place] [address] [place] CNOVon 02-25-2025 CNOV Office Visit (INTMWS ) KATE REED ([id number]) 1975 F Date Time Provider Department 02/25/25 9:00 AM CAROL LEBRON INTMWS During your visit today, we recorded the following information about you: Pulse Blood pressure Weight Height 84/minute 121/82 82.9 kg 1.676 m Carol Lebron MD 02/25/2025 11:10 AM Signed Reason for Visit Anxiety medication discussion. DENTON Love is a 49-year-old female with a history of anxiety and GERD, presenting for a medication change due to persistent anxiety, weight gain, and leukopenia. Kate has been taking citalopram 40 mg daily for anxiety, but has recently reduced the dose to 20 mg daily for the past month due to concerns about leukopenia. She reports persistent anxiety, weight gain, and fatigue, and is requesting a change in medication. She has a history of vasomotor symptoms of perimenopause and is currently on an estrogen patch. She expresses dissatisfaction with a recent visit to a female health specialist, stating that she did not receive any new treatment options and was prescribed a medication she had already tried. She reports exercising on a treadmill for an hour daily and following a semi-Mediterranean diet, but is frustrated with her inability to lose weight. She denies any family history of leukemia. Social History Tobacco Use Smoking status: Never Smokeless tobacco: Never Substance Use Topics Alcohol use: Yes Comment: OCCASIONALLY, once per week Drug use: No Past medical history, appointments, medications, allergies reviewed. Pertinent Lab/Diagnostic Studies are reviewed and discussed today Current Outpatient Medications: Norethindrone Acet-Ethinyl Est 1-20 mg-mcg per tablet MEDICATION, NON-DATABASE docosahexaenoic acid/epa (FISH OIL ORAL) MEDICATION, NON-DATABASE ASHWAGANDHA EXTRACT ORAL MEDICATION, NON-DATABASE B.animalis,bifid,infantis,lo ng (PROBIOTIC 4X ORAL) MEDICATION, NON-DATABASE NIFEdipine rectal ointment 0.2% (CPD) rizatriptan (MAXALT) 5 mg tablet valACYclovir (VALTREX) 500 mg tablet cyanocobalamin, vitamin B-12, (VITAMIN B-12 ORAL) cholecalciferol, vitamin D3, (VITAMIN D3 ORAL) magnesium carb,citrate,oxide (MAGNESIUM COMPLEX ORAL) meclizine (ANTIVERT) 25 mg tab buPROPion (WELLBUTRIN) 75 mg tablet citalopram hydrobromide (CELEXA) 10 mg tablet medroxyPROGESTERone (PROVERA) 10 mg tablet estradiol (VIVELLE-DOT) 0.075 mg/24 hr patch Health Maintenance Depression Screening Colorectal Cancer Screening Shingrix Vaccine(1 of 2) Pneumococcal Vaccine: 50+(1 of 1 - PCV) Mammogram Screening@ Review Of Systems Constitutional: (+) fatigue, (+) weight gain Psychiatric: (+) anxiety Physical Exam BP 121/82 Pulse 84 Ht 167.6 cm (5' 6) Wt 82.9 kg (182 lb 12.8 oz) LMP 02/04/2025 SpO2 98% BMI 29.50 kg/m? GENERAL: NAD, alert and oriented. SKIN: Unremarkable, no rash or skin lesions. HEAD: Normocephalic. EYES: PERRLA, EOMI, conjunctiva clear. EARS: External ears normal, canals clear, TM's normal. NOSE/SINUSES: Nares normal. Septum midline. OROPHARYNX: Lips, mucosa, and tongue normal, good dentition. No oral lesions noted. NECK: Supple, no lymphadenopathy, normal thyroid, no carotid bruits. LUNGS: Clear to auscultation bilaterally, no wheezes/rhonchi/rales. HEART: Regular rate and rhythm, no murmurs. No ectopy. EXTREMITIES: Normal, no deformities, no skin discoloration, no edema. NEURO: Awake, alert and oriented x3, cranial nerves II-XII grossly intact, normal gait, no involuntary motions. Assessment and Plan 1. Other decreased white blood cell (WBC) count (D72.818) Chronic leukopenia with recent lab results showing a slight improvement in WBC count after reducing citalopram dosage from 40 mg to 20 mg daily for the past month. Absolute lymphocyte count remains low. - Continue monitoring WBC count. - Repeat CBC in 2 months to assess for further improvement. 2. Encounter for screening mammogram for breast cancer (Z12.31) Patient is up to date with mammogram screenings. 3. Anxiety (F41.9) Currently managed with citalopram 20 mg daily, recently reduced from 40 mg due to concerns about leukopenia. Patient reports variable control of anxiety symptoms and desires a change in medication. - Initiate bupropion 75 mg daily, instructing patient to take in the morning. - Taper citalopram to 10 mg daily for 1 month, then 10 mg every other day for 1 month. - Monitor for side effects and efficacy of bupropion; consider increasing to 150 mg daily after 2 months if well-tolerated. - Discussed potential addition of buspirone if anxiety symptoms persist or if bupropion induces excessive nervous energy. 4. Weight gain (R63.5) Patient reports weight gain despite adherence to a semi-Mediterranean diet and regular exercise (1 hour daily on treadmill). Current weight is 184 lbs, the highest recorded (more content not included)... Normal [facility] CBC W Auto Differential pane l (Bld)on 02-22-2025 Basophils (Bld) [#/Vol] 0.04 10*3/uL Normal <0.11 [facility] Comment on above: Order Comment: Speci men Type: BLOOD SPECIMENOrdering Facility: [facility] Address: [address] [place] [address] Performed By: #### 5 7021-8 ####[facility] LABCLIA [id number] [place] [address] [place] Basophils/100 WBC (Bld) 1.2 % Normal [facility] Comment on above: Order Comment: Speci men Type: BLOOD SPECIMENOrdering Facility: [facility] Address: [address] [place] [address] Performed By: #### 5 7021-8 ####[facility] LABCLIA [id number] [facility] [address], [place] [address] [place] Differential cell count method Nom (Bld) Auto Normal [facility] Comment on above: Order Comment: Speci men Type: BLOOD SPECIMENOrdering Facility: [facility] Address: [address] [place] [address] Performed By: #### 5 7021-8 ####[facility] LABCLIA [id number] [place] [address] [place] Eosinophils (Bld) [#/Vol] 0.07 10*3/uL Normal <0.46 [facility] Comment on above: Order Comment: Speci men Type: BLOOD SPECIMENOrdering Facility: [facility] Address: [address] [place] [address] Performed By: #### 5 7021-8 ####[facility] LABCLIA [id number] [place] [address] [place] Eosinophils/100 WBC (Bld) 2.1 % Normal [facility] Comment on above: Order Comment: Speci men Type: BLOOD SPECIMENOrdering Facility: [facility] Address: [address] [place] [address] Performed By: #### 5 7021-8 ####[facility] LABCLIA [id number] [place] [address] [place] Erythrocyte distribution width (RBC) [Ratio] 11.9 % Normal 11.5-15.0 [facility] Comment on above: Order Comment: Speci men Type: BLOOD SPECIMENOrdering Facility: [facility] Address: [address] [place] [address] Performed By: #### 5 7021-8 ####[facility] LABCLIA [id number] [place] [address] [place] Hematocrit (Bld) [Volume fraction] 39.5 % Normal 36.0-46.0 [facility] Comment on above: Order Comment: Speci men Type: BLOOD SPECIMENOrdering Facility: [facility] Address: [address] [place] [address] Performed By: #### 5 7021-8 ####[facility] LABCLIA [id number] [address] [address] [place] Hemoglobin (Bld) [Mass/Vol] 13.5 g/dL Normal 11.5-15.5 [facility] Comment on above: Order Comment: Speci men Type: BLOOD SPECIMENOrdering Facility: [facility] Address: [address] [place] [address] Performed By: #### 5 7021-8 ####[facility] LABCLIA [id number] [place] [address] [place] Immature granulocytes (Bld) [#/Vol] 10*3/uL Normal <0.10 [facility] Comment on above: Order Comment: Speci men Type: BLOOD SPECIMENOrdering Facility: [facility] Address: [address] [place] [address] Performed By: #### 5 7021-8 ####[facility] LABCLIA [id number] [place] [address] [place] Immature granulocytes/100 WBC (Bld) 0.3 % Normal [facility] Comment on above: Order Comment: Speci men Type: BLOOD SPECIMENOrdering Facility: [facility] Address: [address] [place] [address] Performed By: #### 5 7021-8 ####[facility] LABCLIA [id number] [place] [address] [place] Lymphocytes (Bld) [#/Vol] 0.82 10*3/uL Low 1.00-4.00 [facility] Comment on above: Order Comment: Speci men Type: BLOOD SPECIMENOrdering Facility: [facility] Address: [address] [place] [address] Performed By: #### 5 7021-8 ####[facility] LABIA [id number] [place] [address] [place] Lymphocytes/100 WBC (Bld) 24.6 % Normal [facility] Comment on above: Order Comment: Speci men Type: BLOOD SPECIMENOrdering Facility: [facility] Address: [address] [place] [address] Performed By: #### 5 7021-8 ####[facility] LABIA [id number] [place] [address] [place] MCH (RBC) [Entitic mass] 31.2 pg Normal 26.0-34.0 [facility] Comment on above: Order Comment: Speci men Type: BLOOD SPECIMENOrdering Facility: [facility] Address: [address] [place] [address] Performed By: #### 5 7021-8 ####[facility] LABIA [id number] [place] [address] [place] MCHC (RBC) [Mass/Vol] 34.2 g/dL Normal 30.5-36.0 [facility] Comment on above: Order Comment: Speci men Type: BLOOD SPECIMENOrdering Facility: [facility] Address: [address] [place] [address] Performed By: #### 5 7021-8 ####[facility] LABIA [id number] [place] [address] [place] MCV (RBC) [Entitic vol] 91.2 fL Normal 80.0-100.0 [facility] Comment on above: Order Comment: Speci men Type: BLOOD SPECIMENOrdering Facility: [facility] Address: [address] [place] [address] Performed By: #### 5 7021-8 ####[facility] LABIA [id number] [address] [id number] [address] [place] Monocytes (Bld) [#/Vol] 0.52 10*3/uL Normal <0.87 [facility] Comment on above: Order Comment: Speci men Type: BLOOD SPECIMENOrdering Facility: [facility] Address: [address] [place] [address] Performed By: #### 5 7021-8 ####[facility] LABCLIA [id number] [facility] [place] [address] [place] Monocytes/100 WBC (Bld) 15.6 % Normal [facility] Comment on above: Order Comment: Speci men Type: BLOOD SPECIMENOrdering Facility: [facility] Address: [address] [place] [address] Performed By: #### 5 7021-8 ####[facility] LABCLIA [id number] [place] [address] [place] Neutrophils (Bld) [#/Vol] 1.87 10*3/uL Normal 1.45-7.50 [facility] Comment on above: Order Comment: Speci men Type: BLOOD SPECIMENOrdering Facility: [facility] Address: [address] [place] [address] Performed By: #### 5 7021-8 ####[facility] LABCLIA [id number] [place] [address] [place] Neutrophils/100 WBC (Bld) 56.2 % Normal [facility] Comment on above: Order Comment: Speci men Type: BLOOD SPECIMENOrdering Facility: [facility] Address: [address] [place] [address] Performed By: #### 5 7021-8 ####[facility] LABCLIA [id number] [place] [address] [place] Nucleated RBC (Bld) [#/Vol] 10*3/uL Normal <0.01 [facility] Comment on above: Order Comment: Speci men Type: BLOOD SPECIMENOrdering Facility: [facility] Address: [address] [place] [address] Performed By: #### 5 7021-8 ####[facility] LABCLIA [id number] [place] [address] [place] Nucleated RBC/100 WBC (Bld) [Ratio] 0.0 /100 WBC Normal [facility] Comment on above: Order Comment: Speci men Type: BLOOD SPECIMENOrdering Facility: [facility] Address: [address] [place] [address] Performed By: #### 5 7021-8 ####[facility] LABCLIA [id number] [address], [place] [address] [place] Platelet mean volume (Bld) [Entitic vol] 10.2 fL Normal 9.0-12.7 [facility] Comment on above: Order Comment: Speci men Type: BLOOD SPECIMENOrdering Facility: [facility] Address: [address] [place] [address] Performed By: #### 5 7021-8 ####[facility] LABCLIA [id number] [place] [id number] [place] Platelets (Bld) [#/Vol] 286 10*3/uL Normal 150-400 [facility] Comment on above: Order Comment: Speci men Type: BLOOD SPECIMENOrdering Facility: [facility] Address: [address] [place] [address] Performed By: #### 5 7021-8 ####[facility] LABCLIA [id number] [address] [place] [address] [place] RBC (Bld) [#/Vol] 4.33 10*6/uL Normal 3.90-5.20 [facility] Comment on above: Order Comment: Speci men Type: BLOOD SPECIMENOrdering Facility: [facility] Address: [address] [place] [address] Performed By: #### 5 7021-8 ####[facility] LABCLIA [id number] [place] [address] [place] WBC (Bld) [#/Vol] 3.33 10*3/uL Low 3.70-11.00 [facility] Comment on above: Order Comment: Speci men Type: BLOOD SPECIMENOrdering Facility: [facility] Address: [address] [facility] [place] [address] Performed By: #### 5 7021-8 ####[facility] LABCLIA [id number] [place] [id number] [place] CNOVon 02-04-2025 CNOV Office Visit ([facility] ) KATE REED ([id number]) 1975 F Date Time Provider Department 02/04/25 4:45 PM LITA SCHULTZ During your visit today, we recorded the following information about you: Weight Height Last Period 83.5 kg 1.676 m 02/04/25 Lita Schultz MD 02/04/2025 6:33 PM Signed [facility]OR[facility] SURGERY Established Patient Visit Chief Complaint: persistent post op pain History of Present Illness: Kate Wilsonleora is a 49 year old female who presents for ongoing rectal pain after hemorrhoidectomy in October 2024. She states that pain after hemorrhoidectomy initially improved but did not go away completely. She did have the flu in October after the surgery AND had a lot of diarrhea. She also has some fecal smearing since surgery. She is taking miralax and fiber gummies - this is resulting in well formed stools, she is not straining. The patient's last colonoscopy was 09/14/22 and showed. 12/04/24 VV w/ Radha Pham NP Her post-operative period was uncomplicated. She is tolerating diet with an improving appetite, stable weight, and energy level is improving . She has no specific complaints. She has some soreness but it is gradually improving. Assessment: Appetite: Eating and drinking well BMs: Going daily, she is to remain on bowel regimen Incision/wound: no issues postoperatively healed per ocean export coordinator Overall doing well. Again stressed the importance of a good bowel regimen and bowel habits. Patient to stay well hydrated. Not strain and use squatty potty. Follow up as needed. 10/23/24 Surgery Procedure(s): Excisional hemorrhoidectomy Skin tag removal Fulguration of internal hemorrhoids PAST MEDICAL HISTORY Diagnosis Date Anxiety 11/24/2020 Biliary dyskinesia 10/30/2013 Chronic cholecystitis without calculus 12/03/2013 Endometriosis, site unspecified Endometriosis Irregular menstrual cycle Irregular periods IRREGULAR MENSTRUATION Mild dysplasia of cervix (FREDO I) Mixed incontinence PAST SURGICAL HISTORY Procedure Laterality Date DELIVERY ONLY , low transverse, x 1 COLONOSCOPY FLX DX W/COLLJ SPEC WHEN PFRMD 09/16/2013 Colonoscopy COLPO OF CERVIX INC UPPER VAG 11/2005 ESOPHAGOGASTRODUODENOSCOPY TRANSORAL DIAGNOSTIC 09/16/2013 EGD LAPS ABD PRTMANDOMENTUM DX W/WO SPEC BR/WA SPX Laparoscopy LASER ABLATION OF ENDOMETRIOSIS LAPS SURG CHOLECYSTECTOMY W/CHOLANGIOGRAPHY 11/24/2013 PAST SURGICAL HISTORY OF 2000 hemorrhoidectomy, anal fissure PAST SURGICAL HISTORY OF 02/26/2022 Placement of retropubic mid-urethral sling PAST SURGICAL HISTORY OF 10/2024 hemorrhoidectomy FAMILY HISTORY Problem Relation Age of Onset other (Fibro-Myalgia) Mother other (Hypoglycemia) Mother Hypertension Maternal Grandmother Stroke Paternal Grandmother Heart Paternal Grandfather Cancer Paternal Aunt OVARIAN Coronary Artery Disease Paternal Uncle Breast Cancer Paternal cousin 50 - 59 Anesthesia Problems No Family History Uterine Cancer No Family History Social History Tobacco Use Smoking status: Never Smokeless tobacco: Never Substance Use Topics Alcohol use: Yes Comment: OCCASIONALLY, once per week Drug use: No ALLERGIES Allergen Reactions Erythromycin GI Upset Honey Swelling Current Outpatient Medications Medication Sig Dispense Refill NIFEdipine rectal ointment 0.2% (CPD) by RECTAL route three times a day. 90 g 1 medroxyPROGESTERone (PROVERA) 10 mg tablet Take 1 tablet by mouth once daily. FOR 12 DAYS EACH MONTH 36 tablet 3 estradiol (VIVELLE-DOT) 0.075 mg/24 hr patch Use twice weekly on abdomen or buttock 24 Patch 3 citalopram (CELEXA) 40 mg tablet Take 1 tablet by mouth once daily. 90 tablet 1 rizatriptan (MAXALT) 5 mg tablet Take 1 tablet (5 mg) by mouth as needed. May repeat in 2 hours if needed 20 tablet 0 valACYclovir (VALTREX) 500 mg tablet At earliest onset of symptoms take 2 gms , 2 times a day for 1 day 8 tablet 3 cyanocobalamin, vitamin B-12, (VITAMIN B-12 ORAL) Take by mouth once daily. cholecalciferol, vitamin D3, (VITAMIN D3 ORAL) Take by mouth once daily. magnesium carb,citrate,oxide (MAGNESIUM COMPLEX ORAL) Take by mouth once daily. meclizine (ANTIVERT) 25 mg tab Take 1 tablet by mouth once daily as needed. 15 tablet 2 No current facility-administered medications for this visit. Physical Exam: 02/04/25 1551 Weight: 83.5 kg (184 lb) Height: 167.6 cm (5' 6) Body mass index is 29.7 kg/m?. General Appearance: Well appearing, alert, in no acute distress, well-hydrated, well nourished. Skin: Skin color, texture, turgor normal, no suspicious rashes or lesions Head: Normocephalic, atraumatic Eyes: Sclera anicteric Oropharynx: oropharynx clear; lips/mucosa normal Neck: trachea midline Lungs: nonlabored breathing on room air, no increased work of breathing, no wheezing Heart: reg (more content not included)... Normal [facility] Basic metabolic 2000 panelon 01-11-2025 Anion gap [Moles/Vol] 13 mmol/L Normal 8-15 [facility] Comment on above: Order Comment: Speci men Type: BLOOD SPECIMENOrdering Facility: [facility] Address: [address] [place] [address] Performed By: #### 2 4321-2, 21513-7 ####[facility] LABCLIA [id number] [place] [address] [place] Calcium [Mass/Vol] 9.2 mg/dL Normal 8.5-10.2 [facility] Comment on above: Order Comment: Speci men Type: BLOOD SPECIMENOrdering Facility: [facility] Address: [address] [place] [address] Performed By: #### 2 4321-2, 78348-6 ####[facility] LABCLIA [id number] [place] [id number] [place] Chloride [Moles/Vol] 103 mmol/L Normal 98-107 [facility] Comment on above: Order Comment: Speci men Type: BLOOD SPECIMENOrdering Facility: [facility] Address: [address] [place] [address] Performed By: #### 2 4321-2, 06541-5 ####[facility] LABCLIA [id number] [place] [address] [place] CO2 [Moles/Vol] 22 mmol/L Normal 22-30 [facility] Comment on above: Order Comment: Speci men Type: BLOOD SPECIMENOrdering Facility: [facility] Address: [address] [place] [address] Performed By: #### 2 4321-2, 54412-6 ####[facility] LABIA [id number] [place] [address] [place] Creatinine [Mass/Vol] 0.71 mg/dL Normal 0.58-0.96 [facility] Comment on above: Order Comment: Speci men Type: BLOOD SPECIMENOrdering Facility: [facility] Address: [address] [place] [address] Performed By: #### 2 4321-2, 44840-1 ####[facility] LABIA [id number] [place] [id number] [place] Creatinine and Glomerular filtration rate.predicted panel (S/P/Bld) 104 mL/min/1.73m??? Normal >=60 [facility] Comment on above: Order Comment: Speci men Type: BLOOD SPECIMENOrdering Facility: [facility] Address: [address] [place] [address] Result Comment: Renata mated Glomerular Filtration Rate (eGFR) is calculated using the 2020 CKD-EPI creatinine equation. This equation utilizes serum creatinine, sex, and age as parameters. The creatinine assay has traceable calibration to isotope dilution-mass spectrometry. Refer to KDIGO guidelines for clinical interpretation. In patients with unstable renal function, e.g. those with acute kidney injury, the eGFR may not accurately reflect actual GFR. Performed By: #### 2 4321-2, 03545-6 ####[facility] LABIA [id number] [place] [id number] [place] Glucose [Mass/Vol] 83 mg/dL Normal 74-99 [facility] Comment on above: Order Comment: Lena perales Type: BLOOD SPECIMENOrdering Facility: [facility] Address: [address] [place] [address] Result Comment: The [place] Diabetes Association (ADA) provides guidance for cutoff values for fasting glucose and random glucose. The ADA defines fasting as no caloric intake for at least 8 hours. Fasting plasma glucose results between 100 to 125 mg/dL indicate increased risk for diabetes (prediabetes). Fasting plasma glucose results greater than or equal to 126 mg/dL meet the criteria for diagnosis of diabetes. In the absence of unequivocal hyperglycemia, results should be confirmed by repeat testing. In a patient with classic symptoms of hyperglycemia or hyperglycemic crisis, random plasma glucose results greater than or equal to 200 mg/dL meet the criteria for diagnosis of diabetes. Reference: Standards of Medical Care in Diabetes 2016, [place] Diabetes Association. Diabetes Care. 2016.39(Suppl 1). Performed By: #### 2 432-, 35408-3 ####[facility] LABIA [id number] [place] [id number] [place] Potassium [Moles/Vol] 4.4 mmol/L Normal 3.7-5.1 [facility] Comment on above: Order Comment: Lena perales Type: BLOOD SPECIMENOrdering Facility: [facility] Address: [address] [place] [address] Performed By: #### 2 432-2, 67021-0 ####[facility] LABIA [id number] [place] [address] [place] Sodium [Moles/Vol] 138 mmol/L Normal 136-144 [facility] Comment on above: Order Comment: Speci men Type: BLOOD SPECIMENOrdering Facility: [facility] Address: [address] [place] [address] Performed By: #### 2 4321-2, 43652-1 ####[facility] LABCLIA [id number] [place] [address] [place] Urea nitrogen [Mass/Vol] 8 mg/dL Normal 7-21 [facility] Comment on above: Order Comment: Speci men Type: BLOOD SPECIMENOrdering Facility: [facility] Address: [address] [place] [address] Performed By: #### 2 4321-2, 18903-3 ####[facility] LABCLIA [id number] [place] [address] [place] CBC W Auto Differential pane l (Bld)on 01-11-2025 Basophils (Bld) [#/Vol] 0.04 10*3/uL Normal <0.11 [facility] Comment on above: Order Comment: Speci men Type: BLOOD SPECIMENOrdering Facility: [facility] Address: [address] [place] [address] Performed By: #### 5 7021-8 ####[facility] LABCLIA [id number] [place] [address] [place] Basophils/100 WBC (Bld) 1.4 % Normal [facility] Comment on above: Order Comment: Speci men Type: BLOOD SPECIMENOrdering Facility: [facility] Address: [address] [place] [address] Performed By: #### 5 7021-8 ####[facility] LABCLIA [id number] [place] [address] [place] Differential cell count method Nom (Bld) Auto Normal [facility] Comment on above: Order Comment: Speci men Type: BLOOD SPECIMENOrdering Facility: [facility] Address: [address] [place] [address] Performed By: #### 5 7021-8 ####[facility] LABCLIA [id number] [place] [address] [place] Eosinophils (Bld) [#/Vol] 0.05 10*3/uL Normal <0.46 [facility] Comment on above: Order Comment: Speci men Type: BLOOD SPECIMENOrdering Facility: [facility] Address: [address] [place] [address] Performed By: #### 5 7021-8 ####[facility] LABCLIA [id number] [place] [address] [place] Eosinophils/100 WBC (Bld) 1.8 % Normal [facility] Comment on above: Order Comment: Speci men Type: BLOOD SPECIMENOrdering Facility: [facility] Address: [address] [place] [address] Performed By: #### 5 7021-8 ####[facility] LABCLIA [id number] [place] [address] [place] Erythrocyte distribution width (RBC) [Ratio] 11.7 % Normal 11.5-15.0 [facility] Comment on above: Order Comment: Speci men Type: BLOOD SPECIMENOrdering Facility: [facility] Address: [address] [place] [address] Performed By: #### 5 7021-8 ####[facility] LABCLIA [id number] [place] [address] [place] Hematocrit (Bld) [Volume fraction] 40.5 % Normal 36.0-46.0 [facility] Comment on above: Order Comment: Speci men Type: BLOOD SPECIMENOrdering Facility: [facility] Address: [address] [place] [address] Performed By: #### 5 7021-8 ####[facility] LABCLIA [id number] [place] [address] [place] Hemoglobin (Bld) [Mass/Vol] 13.4 g/dL Normal 11.5-15.5 [facility] Comment on above: Order Comment: Speci men Type: BLOOD SPECIMENOrdering Facility: [facility] Address: [address] [place] [address] Performed By: #### 5 7021-8 ####[facility] LABCLIA [id number] [place] [address] [place] Immature granulocytes (Bld) [#/Vol] 10*3/uL Normal <0.10 [facility] Comment on above: Order Comment: Speci men Type: BLOOD SPECIMENOrdering Facility: [facility] Address: [address] [place] [address] Performed By: #### 5 7021-8 ####[facility] LABCLIA [id number] [place] [address] [place] Immature granulocytes/100 WBC (Bld) 0.0 % Normal [facility] Comment on above: Order Comment: Speci men Type: BLOOD SPECIMENOrdering Facility: [facility] Address: [address] [place] [address] Performed By: #### 5 7021-8 ####[facility] LABCLIA [id number] [place] [address] [place] Lymphocytes (Bld) [#/Vol] 0.73 10*3/uL Low 1.00-4.00 [facility] Comment on above: Order Comment: Speci men Type: BLOOD SPECIMENOrdering Facility: [facility] Address: [address] [place] [address] Performed By: #### 5 7021-8 ####[facility] LABCLIA [id number] [place] [address] [place] Lymphocytes/100 WBC (Bld) 26.3 % Normal [facility] Comment on above: Order Comment: Speci men Type: BLOOD SPECIMENOrdering Facility: [facility] Address: [address] [place] [address] Performed By: #### 5 7021-8 ####[facility] LABIA [id number] [place] [address] [place] MCH (RBC) [Entitic mass] 30.9 pg Normal 26.0-34.0 [facility] Comment on above: Order Comment: Speci men Type: BLOOD SPECIMENOrdering Facility: [facility] [facility] Address: [address] [place] [address] Performed By: #### 5 7021-8 ####[facility] LABIA [id number] [place] [address] [place] MCHC (RBC) [Mass/Vol] 33.1 g/dL Normal 30.5-36.0 [facility] Comment on above: Order Comment: Speci men Type: BLOOD SPECIMENOrdering Facility: [facility] Address: [address] [place] [address] Performed By: #### 5 7021-8 ####[facility] LABIA [id number] [place] [address] [place] MCV (RBC) [Entitic vol] 93.3 fL Normal 80.0-100.0 [facility] Comment on above: Order Comment: Speci men Type: BLOOD SPECIMENOrdering Facility: [facility] Address: [address] [place] [address] Performed By: #### 5 7021-8 ####[facility] LABIA [id number] [place] [address] [place] Monocytes (Bld) [#/Vol] 0.44 10*3/uL Normal <0.87 [facility] Comment on above: Order Comment: Speci men Type: BLOOD SPECIMENOrdering Facility: [facility] Address: [address] [place] [address] Performed By: #### 5 7021-8 ####[facility] LABCLIA [id number] [address] [address] [place] Monocytes/100 WBC (Bld) 15.8 % Normal [facility] Comment on above: Order Comment: Speci men Type: BLOOD SPECIMENOrdering Facility: [facility] Address: [address] [place] [address] Performed By: #### 5 7021-8 ####[facility] LABCLIA [id number] [place] [address] [place] Neutrophils (Bld) [#/Vol] 1.52 10*3/uL Normal 1.45-7.50 [facility] Comment on above: Order Comment: Speci men Type: BLOOD SPECIMENOrdering Facility: [facility] Address: [address] [place] [address] Performed By: #### 5 7021-8 ####[facility] LABCLIA [id number] [place] [address] [place] Neutrophils/100 WBC (Bld) 54.7 % Normal [facility] Comment on above: Order Comment: Speci men Type: BLOOD SPECIMENOrdering Facility: [facility] Address: [address] [place] [address] Performed By: #### 5 7021-8 ####[facility] LABCLIA [id number] [place] [address] [place] Nucleated RBC (Bld) [#/Vol] 10*3/uL Normal <0.01 [facility] Comment on above: Order Comment: Speci men Type: BLOOD SPECIMENOrdering Facility: [facility] Address: [address] [place] [address] Performed By: #### 5 7021-8 ####[facility] LABCLIA [id number] [place] [id number] [place] Nucleated RBC/100 WBC (Bld) [Ratio] 0.0 /100 WBC Normal [facility] Comment on above: Order Comment: Speci men Type: BLOOD SPECIMENOrdering Facility: [facility] Address: [address] [place] [address] Performed By: #### 5 7021-8 ####[facility] LABIA [id number] [place] [address] [place] Platelet mean volume (Bld) [Entitic vol] 9.9 fL Normal 9.0-12.7 [facility] Comment on above: Order Comment: Speci men Type: BLOOD SPECIMENOrdering Facility: [facility] Address: [address] [place] [address] Performed By: #### 5 7021-8 ####[facility] LABIA [id number] [place] [address] [place] Platelets (Bld) [#/Vol] 259 10*3/uL Normal 150-400 [facility] Comment on above: Order Comment: Speci men Type: BLOOD SPECIMENOrdering Facility: [facility] Address: [address] [place] [address] Performed By: #### 5 7021-8 ####[facility] LABIA [id number] [place] [address] [place] RBC (Bld) [#/Vol] 4.34 10*6/uL Normal 3.90-5.20 [facility] Comment on above: Order Comment: Speci men Type: BLOOD SPECIMENOrdering Facility: [facility] Address: [address] [place] [address] Performed By: #### 5 7021-8 ####[facility] LABIA [id number] [place] [address] [place] WBC (Bld) [#/Vol] 2.78 10*3/uL Low 3.70-11.00 [facility] Comment on above: Order Comment: Speci men Type: BLOOD SPECIMENOrdering Facility: [facility] Address: [address] [place] [address] Performed By: #### 5 7021-8 ####[facility] LABCLIA [id number] [place] [address] [place] Lipid 1996 panelon 5 Cholesterol [Mass/Vol] 193 mg/dL Normal <200 [facility] Comment on above: Order Comment: Speci men Type: BLOOD SPECIMENOrdering Facility: [facility] Address: [address] [place] [address] Result Comment: <200 mg/dL, Desirable 200-239 mg/dL, Borderline high >239 mg/dL, High Performed By: #### 2 4321-2, 83166-4 ####[facility] LABCLIA [id number] [address] [place] Cholesterol in HDL [Mass/Vol] 52 mg/dL Normal >39 [facility] Comment on above: Order Comment: Speci men Type: BLOOD SPECIMENOrdering Facility: [facility] Address: [address] [place] [address] Result Comment: 40-5 9 mg/dL, Acceptable >59 mg/dL, High: Negative risk factor for coronary heart disease <40 mg/dL, Low: Positive risk factor for coronary heart disease Performed By: #### 2 4321-2, 42192-7 ####[facility] LABCLIA [id number] [address] [place] Cholesterol in LDL [Mass/Vol] 125 mg/dL High <100 [facility] Comment on above: Order Comment: Speci men Type: BLOOD SPECIMENOrdering Facility: [facility] Address: [address] [place] [address] Result Comment: <100 mg/dL, Optimal 100-129 mg/dL, Near optimal/above optimal 130-159 mg/dL, Borderline high 160-189 mg/dL, High >189 mg/dL, Very high Secondary prevention optimal LDL Cholesterol levels are recommended to be < 70 mg/dL Performed By: #### 2 4321-2, 07518-0 ####[facility] LABCLIA [id number] [address] [address] [place] Cholesterol in LDL/Cholesterol in HDL [Mass ratio] 2.40 {ratio} Normal <2.54 [facility] Comment on above: Order Comment: Speci men Type: BLOOD SPECIMENOrdering Facility: [facility] Address: [address] [place] [address] Result Comment: Refe rence: 1. National Cholesterol Education Program ATP III Guideline At-A-Glance Quick Desk Reference: National Heart, Lung, and Blood [place]. National Institutes of Health. 2001: NIH Publication No. 01-3305. 2. An International Atherosclerosis Society position paper: global recommendations for the management of dyslipidemia: executive summary, Atherosclerosis. 2014: 232(2):410-413. Performed By: #### 2 4321-2, 88067-5 ####[facility] LABCLIA [id number] [place] [id number] [place] Cholesterol in VLDL [Mass/Vol] 16 mg/dL Normal <30 [facility] Comment on above: Order Comment: Speci men Type: BLOOD SPECIMENOrdering Facility: [facility] Address: [address] [place] [address] Performed By: #### 2 432-2, 35275-7 ####[facility] LABCLIA [id number] [address] [address] [place] Cholesterol non HDL [Mass/Vol] 141 mg/dL High <130 [facility] Comment on above: Order Comment: Speci men Type: BLOOD SPECIMENOrdering Facility: [facility] Address: [address] [place] [address] Result Comment: <130 mg/dL, Optimal 130-159 mg/dL, Near optimal/above optimal 160-189 mg/dL, Borderline high 190-219 mg/dL, High >219 mg/dL, Very high Secondary prevention optimal non HDL Cholesterol levels are recommended to be <100 mg/dL Performed By: #### 2 4321-2, 30423-8 ####[facility] LABCLIA [id number] [place] [address] [place] Cholesterol.total/C holesterol in HDL [Mass ratio] 3.71 {ratio} Normal <5.10 [facility] Comment on above: Order Comment: Speci men Type: BLOOD SPECIMENOrdering Facility: [facility] Address: [address] [place] [address] Performed By: #### 2 4321-2, 82455-7 ####[facility] LABIA [id number] [place] [address] [place] FASTING TIME 12 hrs Normal [facility] Comment on above: Order Comment: Speci men Type: BLOOD SPECIMENOrdering Facility: [facility] Address: [address] [place] [address] Performed By: #### 2 4321-2, 25971-0 ####[facility] LABIA [id number] [address] [place] Triglyceride [Mass/Vol] 79 mg/dL Normal <150 [facility] Comment on above: Order Comment: Speci men Type: BLOOD SPECIMENOrdering Facility: [facility] Address: [address] [place] [address] Result Comment: <150 mg/dL, Normal 150-199 mg/dL, Borderline high 200-499 mg/dL, High >499 mg/dL, Very high Performed By: #### 2 4321-2, 77997-2 ####[facility] LABIA [id number] [address] [place] CNOVon 12-02-2024 CNOV Office Visit (WCTRMN ) KATE REED ([id number]) 1975 F Date Time Provider Department 12/02/24 11:30 AM ASHLEE MUNOZ WCTRMN During your visit today, we recorded the following information about you: Pulse Blood pressure Weight Height 71/minute 136/74 78 kg 1.676 m Last Period 11/11/24 Ashlee Munoz MD 12/02/2024 1:02 PM Signed In office visit, December 02, 2024 Start review of records, labs, interim events 11:36 AM Kate Reed is 49 year old. 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 Ann-Marie Brooks in [facility] (she lives 1[place]5 hours from main medora). Had Aquaculturist exam with Gena Thompson CNP at [facility] today. Her priorities are: VMS and weight gain VMS started around age 44 (5 years ago), while on 12/07 cyclically. Bad symptoms even on active pills. H/o endometriosis, s/p laparoscopic surgery for pelvic endometriosis done. S/p cholecystectomy. weight gain for 3 years. Usual weight 150-160 lbs, today 171 lbs. Denies GSM. Has been on OCP since teenager. 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 No abnormal bleeding if on OCP. Abnormal PAP of positive HPV many years ago. vasectomy. TRIED/OFFERED OCP since teenager, helping mood. E patch 37.5 mcg x2/week with daily provera 2.5 mg daily - BTB, x 6 months E oral pill (?type) with daily provera 2.5 daily - BTB Celexa since 20s for axiety. Healthy diet and exercise. HORMONAL HEALTH QUESTIONNAIRE (Patient entered data, with my edits. See the questionnaire link for full review of systems). SYMPTOMS Any sxs (even if mild): VMS; sleep problems; weight gain Bothersome sxs: VMS; weight gain Symptom duration: >5 yrs Sexual health hx: No concerns reported Potential contributing factors: medications; suboptimal sleep Sxs improve on vacation? No Previously tried/offered: hormones; vitamins and supplements; healthy lifestyle changes; antidepressants HORMONAL HISTORY Uterus in situ? Yes Cervix in situ? Yes Ovaries in situ? Yes LMP: Within the last year, about once monthly; 11/11/24 Regular menses in past? Yes Age of menarche: 13 or older G 2 P 2 FLB: Yes; Age: 22 Infertility hx or tx? No Current hormone use: Yes; pills Past hormone use: Yes; patch Duration of exogenous hormone use: > 10 yrs Tolerated? Well Unintended acceptable? Prefers not to answer Chance of unintended : No RISK ASSESSMENT (see link for full ROS) Relevant PMH: active gallbladder problems; migraine; endometriosis Relevant Fam Hx: No close relative with arterial/venous thrombosis, cancer, hip fracture Prior BMD: Never Prior breast biopsy: No Current tobacco use: No Alcohol use per week: < 7 drinks Substance use: Prefers not to answer Other hormonal concerns? No patient response *NOTE - Questionnaire responses within the last 30 days are represented in black ink; Responses between 31-365 days are represented in blue ink. The 10-year ASCVD risk score (Yfn STRINGER, et al., 2019) is: 1.7% Values used to calculate the score: Age: 49 years Sex: Female Is Non- : No Diabetic: No Tobacco smoker: No Systolic Blood Pressure: 136 mmHg Is BP treated: No HDL Cholesterol: 47 mg/dL Total Cholesterol: 201 mg/dL PAST HISTORY (reviewed and updated):Subjective OB History T2 L2 SAB0 IAB0 Ectopic0 Multiple0 Live Births0 ACTIVE PROBLEM LIST Endometriosis, Site Unspecified Gerd (Gastroesophageal Reflux Disease) Anxiety Vertigo PAST MEDICAL HISTORY Diagnosis Date Anxiety 11/24/2020 Biliary dyskinesia 10/30/2013 Chronic cholecystitis without calculus 12/03/2013 Endometriosis, site unspecified Endometriosis Irregular menstrual cycle Irregular periods IRREGULAR MENSTRUATION Mild dysplasia of cervix (FREDO I) Mixed incontinence PAST SURGICAL HISTORY Procedure Laterality Date DELIVERY ONLY , low transverse, x 1 COLONOSCOPY FLX DX W/COLLJ SPEC WHEN PFRMD 09/16/2013 Colonoscopy COLPO OF CERVIX INC UPPER VAG 11/2005 ESOPHAGOGASTRODUODENOSCOPY TRANSORAL DIAGNOSTIC 09/16/2013 EGD LAPS ABD PRTMANDOMENTUM DX W/WO SPEC BR/WA SPX Laparoscopy LASER ABLATION OF ENDOMETRIOSIS LAPS SURG CHOLECYSTECTOMY W/CHOLANGIOGRAPHY 11/24/2013 PAST SURGICAL HISTORY OF 2000 hemorrhoidectomy, anal fissure PAST SURGICAL HISTORY OF 02/26/2022 Placement of retropubic mid-urethral sling FAMILY HISTORY Problem Relation Age of Onset other (Fibro-Myalgia) Mother other (Hypoglycemia) Mother Hypertension Maternal Grandmother Stroke Paternal Grandmother Heart Paternal Grandfather Cancer Paternal Aunt OVARIAN Coronary Artery Disease Paternal Uncle Breast Cancer Paternal cousin 50 - 59 Anesthesia Problems No Family History Uterine Cancer No Family History Social History Tobacco Use Smoking status: Never Smok (more content not included)... Normal [facility] CN Office Visit (GYNMN) BRIANNAKATE ([id number]) 1975 F Date Time Provider Department 12/02/24 10:15 AM GENA THOMPSON GYNMN During your visit today, we recorded the following information about you: Pulse Blood pressure Weight Height 71/minute 136/74 78 kg 1.676 m Last Period 11/14/24 Gena Thompson APRN.CN 12/02/2024 10:44 AM Signed Kate is a 49 year old who presents for an annual gynecologic exam without complaints. Still get period: Yes, OCPs Bleeding amount bothersome: No Bleeding between periods: No Period symptoms: Cramps Menopause symptoms: Hot flashes; Night sweats HPV vaccine: No; HPV:negative Last pap smear: 09/01/2023 done in [facility] History of abnormal pap: Yes, history of abnormal PAP smears Hx of positive HPV many years ago Bothersome pelvic pain: No Last mammogram: 2023 normal Done [facility] Patient concerns for STD exposure: No. Mood swings: No Insomnia: Yes Hemorrhoidectomy 6 weeks ago and still having tenderness with bowel movements Seeing Dr. Munoz later this morning to discuss perimenopause symptoms. 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 LMP: 11/14/2024, Having periods Age at Menarche: 12 Age at First : Age at Menopause: Aquaculturist History Comments: Sexual Activity: Yes; Male Contraception: Vasectomy Menstrual Tracking History Flowsheet Row Office Visit from 12/02/2024 in Gynecology Period Cycle (Days) 30 Period Duration (Days) 5 Menstrual Flow Light PAST MEDICAL HISTORY Diagnosis Date Anxiety 11/24/2020 Biliary dyskinesia 10/30/2013 Chronic cholecystitis without calculus 12/03/2013 Endometriosis, site unspecified Endometriosis Irregular menstrual cycle Irregular periods IRREGULAR MENSTRUATION Mild dysplasia of cervix (FREDO I) Mixed incontinence PAST SURGICAL HISTORY Procedure Laterality Date DELIVERY ONLY , low transverse, x 1 COLONOSCOPY FLX DX W/COLLJ SPEC WHEN PFRMD 09/16/2013 Colonoscopy COLPO OF CERVIX INC UPPER VAG 11/2005 ESOPHAGOGASTRODUODENOSCOPY TRANSORAL DIAGNOSTIC 09/16/2013 EGD LAPS ABD PRTMANDOMENTUM DX W/WO SPEC BR/WA SPX Laparoscopy LASER ABLATION OF ENDOMETRIOSIS LAPS SURG CHOLECYSTECTOMY W/CHOLANGIOGRAPHY 11/24/2013 PAST SURGICAL HISTORY OF 2000 hemorrhoidectomy, anal fissure PAST SURGICAL HISTORY OF 02/26/2022 Placement of retropubic mid-urethral sling FAMILY HISTORY Problem Relation Age of Onset other (Fibro-Myalgia) Mother other (Hypoglycemia) Mother Hypertension Maternal Grandmother Heart Paternal Grandfather Stroke Paternal Grandmother Cancer Paternal Aunt OVARIAN Coronary Artery Disease Paternal Uncle Anesthesia Problems No Family History SOCIAL HISTORY Social History Tobacco Use Smoking status: Never Smokeless tobacco: Never Substance Use Topics Alcohol use: Yes Comment: OCCASIONALLY, once per week Drug use: No REVIEW OF SYSTEMS Abdomen: No abdominal pain, nausea, vomiting, diarrhea, or constipation. No bloating, early satiety, indigestion, or increased flatulence. Bladder: No dysuria, gross hematuria, urinary frequency, urinary urgency, or incontinence. Breast: No breast lumps, nipple d/c, overlying skin changes, redness or skin retraction. Allergies and current medication updated:Yes SENSITIVE EXAM: The sensitive examination was discussed with the Patient or Patient's Authorized Head Orthopedic Team Physician. As applicable, any other physician, advance practice provider, medical student, or other health professional student that will be observing or involved in the sensitive examination for educational or training purposes was discussed with the Patient or Authorized Head Orthopedic Team Physician. The Patient or Authorized Head Orthopedic Team Physician has agreed to proceed with the sensitive examination. (Sensitive examination includes inspection and/or palpation of the breasts, pelvis, prostate and anorectal regions). EXAM: BP 136/74 Pulse 71 Ht 5' 6 (1.68m) Wt 172 lb (78.0kg) LMP 11/14/2024 BMI 27.77 kg/(m2). GENERAL: pleasant female in no apparent distress BREAST: soft, non-tender, symmetric, no dominant mass, normal nipple-areolar complex, no lymphadenopathy, and no nipple discharge CHEST: Normal inspiratory effort PELVIC: external genitalia normal, normal Bartholin's glands, urethra, [place]'s glands, no vulvar lesions, no cervical lesions, good vaginal support, physiologic discharge present, normal appearing perineal body and perianal region BIMANUAL: uterus normal size, shape and consistency, no adnexal masses, and non-tender RECTOVAGINAL: rectovaginal exam negative for any masses or nodularity, mild tenderness at 7 o'clock NEURO: alert and oriented x3,exam grossly non-focal EXTREMITIES: normal ASSESSMENT/PLAN: 1) Health maintenance: Pap done with HPV. Mammogram u (more content not included)... Normal [facility] HIGH RISK HUMAN PAPILLOMA YANETH (HPV), PCR FOR DETECTION AND GENOTYPINGon 12-02-2024 HPV 16 Ag Ql (Unsp spec) Not detected Normal Not detected [facility] Comment on above: Order Comment: Speci men Type: FLUID SPECIMENOrdering Facility: [facility] Address: [address] [place] [address] Performed By: #### H PVHRT ####[facility] [id number] [place] [address] [place] HPV 18 Ag Ql (Unsp spec) Not detected Normal Not detected [facility] Comment on above: Order Comment: Speci men Type: FLUID SPECIMENOrdering Facility: [facility] Address: [address] [place] [address] Performed By: #### H PVHRT ####[facility] [id number] [place] [address] [place] HPV 31+33+35+39+45+51+5 2+56+58+59+66+68 DNA DESTINY+probe Ql (Cvx) Not detected Normal Not detected [facility] Comment on above: Order Comment: Speci men Type: FLUID SPECIMENOrdering Facility: [facility] Address: [address] [place] [address] Result Comment: High Risk HPV Other Type includes HPV types 31, 33, 35, 39, 45, 51, 52, 56, 58, 59, 66 and 68. Performed By: #### H PVHRT ####[facility] LABCLIA [id number] [place] [address] [place] PAP TESTon 12-02-2024 ADEQUACY Normal [facility] Comment on above: Order Comment: Speci men Type: FLUID SPECIMENOrdering Facility: [facility] Address: [address] [place] [address] Result Comment: Sati sfactory for interpretation. No endocervical component Performed By: #### L [id number] ####[facility] LABCLIA [id number] [place] [address] [place] CASE REPORT Normal [facility] Comment on above: Order Comment: Speci men Type: FLUID SPECIMENOrdering Facility: [facility] Address: [address] [place] [address] Result Comment: Gyne cologic Cytology Report Case: [id number] Authorizing Provider: Gena Thompson APRN.CNM Collected: 12/02/2024 10:10 AM Ordering Location: Gynecology Received: 12/02/2024 01:14 PM First Screen: Aramouni, [place], [place], ASCP Specimen: Pap Test, ThinPrep, Cervix Performed By: #### L [id number] ####[facility] LABCLIA [id number] [place] [id number] [place] CLINICAL HISTORY, CYTOLOGY, DOUBLE ENDING MACHINE OPERATOR Oral Contraceptives Normal [facility] Comment on above: Order Comment: Speci men Type: FLUID SPECIMENOrdering Facility: [facility] Address: [address] [place] [address] Performed By: #### L [id number] ####[facility] LABCLIA [id number] [place] [address] [place] FINAL PERFORMING LAB Normal [facility] Comment on above: Order Comment: Speci men Type: FLUID SPECIMENOrdering Facility: [facility] Address: [address] [place] [address] Result Comment: Tech nical component, boom boss screening performed at [facility], [address] [facility] [address] CLIA# [id number] Diagnostic interpretation performed at [facility], [address] [place], [place] [address] CLIA# [id number] Lining Scrubber: Josh Dimas M.D. Performed By: #### L [id number] ####[facility] LABCLIA [id number] [place] [address] [place] INTERPRETATION, CYTOLOGY, DOUBLE ENDING MACHINE OPERATOR Normal [facility] Comment on above: Order Comment: Speci men Type: FLUID SPECIMENOrdering Facility: [facility] Address: [address] [place] [address] Result Comment: Nega tive for intraepithelial lesion or malignancy. Performed By: #### L [id number] ####[facility] LABCLIA [id number] [place] [id number] [place] LMP 11/14/2024 Normal [facility] Comment on above: Order Comment: Speci men Type: FLUID SPECIMENOrdering Facility: [facility] Address: [address] [place] [address] Performed By: #### L [id number] ####[facility] LABCLIA [id number] [place] [id number] [place] PAP DISCLAIMER COMMENT The Pap Smear is a screening test for cervical cancer. False negative results occur with all screening tests, emphasizing the need for rescreening at recommended intervals, and clinical correlation. Normal [facility] Comment on above: Order Comment: Speci men Type: FLUID SPECIMENOrdering Facility: [facility] Address: [address] [place] [address] Performed By: #### L [id number] ####[facility] LABCLIA [id number] [address] [place] [address] PAP TOOL DISPATCHER COMMENT This specimen has be en analyzed by the ThinPrep Imaging System, an automated imaging and review system, which assists the laboratory in evaluating cells on ThinPrep Pap tests. Following automated imaging, selected gutierrez from every slide are reviewed by a boom boss. Normal [facility] Comment on above: Order Comment: Speci men Type: FLUID SPECIMENOrdering Facility: [facility] Address: [address] [place] [address] Performed By: #### L [id number] ####[facility] LABCLIA [id number] [address] OF [facility] CNOVon 11-17-2024 CNOV Office Visit (FAMPWS ) KATE REED ([id number]) 1975 F Date Time Provider Department 11/17/24 11:00 AM KATHERINE TIRADO During your visit today, we recorded the following information about you: Pulse Respiration Blood pressure Weight 98/minute 12/minute 112/70 78 kg Height Last Period 1.676 m 11/11/24 Katherine Tirado PA-C 11/17/2024 11:46 AM Signed 11/17/2024 Patient presents with: Yearly Exam SUBJECTIVE: This is a 49 year old that is here today for wellness and refill on cymbalta. Overall doing well. Admits not exercising regularly currently and diet has been a little poor during the holidays. Plans to restart treadmill/elliptical. Follows outside [facility] for well woman exam, mammogram this year. Last colonoscopy at [facility] in 2021, due in 10 years, reviewed scanned documents. Taking vitamin D, but not taking calcium. Recent labs in July looked good LDL slightly elevated at 133. PAST MEDICAL HISTORY Diagnosis Date Anxiety 11/24/2020 Biliary dyskinesia 10/30/2013 Chronic cholecystitis without calculus 12/03/2013 Endometriosis, site unspecified Endometriosis Irregular menstrual cycle Irregular periods IRREGULAR MENSTRUATION Mild dysplasia of cervix (FREDO I) Mixed incontinence ALLERGIES Erythromycin and Honey MEDICATIONS Current Outpatient Medications Medication Sig citalopram (CELEXA) 40 mg tablet Take 1 tablet by mouth once daily. cyanocobalamin, vitamin B-12, (VITAMIN B-12 ORAL) Take by mouth once daily. cholecalciferol, vitamin D3, (VITAMIN D3 ORAL) Take by mouth once daily. magnesium carb,citrate,oxide (MAGNESIUM COMPLEX ORAL) Take by mouth once daily. JUNEL , 1-20 mg-mcg per tablet Take 1 tablet by mouth once daily. valACYclovir (VALTREX) 500 mg tablet At earliest onset of symptoms take 2 gms , 2 times a day for 1 day meclizine (ANTIVERT) 25 mg tab Take 1 tablet by mouth once daily as needed. rizatriptan (MAXALT) 5 mg tablet Take 1 tablet by mouth as needed. May repeat in 2 hours if needed No current facility-administered medications for this visit. SOCIAL HISTORY Social History Tobacco Use Smoking status: Never Smokeless tobacco: Never Substance Use Topics Alcohol use: Yes Comment: OCCASIONALLY, once per week Drug use: No REVIEW OF SYSTEMS See HPI OBJECTIVE: BP 112/70 (BP Site: Left Arm, BP Position: Sitting, BP Cuff Size: Large Adult) Pulse 98 Resp 12 Ht 167.6 cm (5' 6) Wt 78 kg (172 lb) LMP 11/11/2024 SpO2 98% BMI 27.76 kg/m? APPEARANCE Well appearing, alert, in no acute distress, well-hydrated, well nourished. THROAT normal, no erythema NECK Supple, no adenopathy; thyroid symmetric, normal size, no bruits HEART RRR with normal S1 and S2, no murmurs, no gallops, no JVD appreciated LUNG clear to auscultation ASSESSMENT/PLAN: 1. Elevated cholesterol - ICD9: 272.0, ICD10: E78.00 (primary diagnosis) Red yeast rice extract and fish oil capsules - LIPID PANEL BASIC - COMPLETE BLOOD COUNT AND DIFFERENTIAL - BASIC METABOLIC PANEL Repeat labs in 3 months 2. migraines headache - ICD9: 784.0, ICD10: G44.53 No changes in symptoms, only occurs 1 x month - RIZATRIPTAN 5 MG TABLET The patient indicates understanding of these issues and agrees with the plan. Reviewed red flags and when to seek care sooner. CRIS De Los Santos Bernadette, PA-C 11/17/2024 11:18 AM Signed Red Yeast Rice Extract Fish Oil Capsules Allergies As of Date: 11/17/2024 Noted Allergy Reaction ERYTHROMYCIN 10/15/2005 8 - GI Upset HONEY 07/04/2009 7 - Swelling Date Reviewed: 11/17/2024 Reviewed by: Criss Delgado LPN - Fully Assessed Reason for Visit: Yearly Exam [187] Primary Visit Diagnosis:Elevated cholesterol [E78.00] Other Visit Diagnosis:Thunderclap headache [G44.53] Order(s):citalopram (CELEXA) 40 mg tabletTake 1 tablet by mouth once daily.Disp: 90 tabletRfl: 1 rizatriptan (MAXALT) 5 mg tabletTake 1 tablet (5 mg) by mouth as needed. May repeat in 2 hours if neededDisp: 20 tabletRfl: 0 valACYclovir (VALTREX) 500 mg tabletAt earliest onset of symptoms take 2 gms , 2 times a day for 1 dayDisp: 8 tabletRfl: 3 LIPID PANEL BASIC [SQLIPB] Order #: [id number] FUTURE COMPLETE BLOOD COUNT AND DIFFERENTIAL [SQCBCDIF] Order #: [id number] FUTURE BASIC METABOLIC PANEL [SQBMP] Order #: [id number] FUTURE Prescriptions as of 11/17/2024 - citalopram (CELEXA) 40 mg tablet Take 1 tablet by mouth once daily. - rizatriptan (MAXALT) 5 mg tablet Take 1 tablet (5 mg) by mouth as needed. May repeat in 2 hours if needed - valACYclovir (VALTREX) 500 mg tablet At earliest onset of symptoms take 2 gms , 2 times a day for 1 day - cyanocobalamin, vitamin B-12, (VITAMIN B-12 ORAL) Take by mouth once daily. - cholecalciferol, vitamin D3, (VITAMIN D3 ORAL) Take by mouth once daily. - magnesium carb,citrate,oxide (MAG (more content not included)... [facility] ANES POSTPROC EVALon 024 ANES POSTPROC EVAL HNO ID: [id number] Author: DEEPAK ALONSO MD Service: ? Author Type: Physician Type: Anesthesia Postprocedure Evaluation Filed: 10/23/2024 11:48 Note Text: POST ANESTHESIA EVALUATION NOTE : 1975 Procedure Summary Date: 10/23/24 [address]hesia Start: 1043 Anesthesia Stop: 1143 Procedure: HEMORRHOIDECTOMY EXTERNAL AND INTERNAL 2 OR MORE COLUMNS/GROUPS (Anus) Diagnosis: External hemorrhoid (External hemorrhoid [K64.4]) Surgeons: Lita Schultz MD Responsible Provider: Deepak Alonso MD Anesthesia Type: general ASA Status: 3 Anesthesia Type: general Airway Type: LMA Last Vitals Vitals Value Taken Time BP 135/80 10/23/24 1145 Temp 36 10/23/24 1147 Pulse 77 10/23/24 1146 Resp 16 10/23/24 1146 SpO2 97 % 10/23/24 1146 Vitals shown include unfiled device data. Post Anesthesia Patient Status Patient Evaluation: PACU. PACU/ICU Patient Condition: stable. Anticipated Disposition: inpatient floor planned admission. Neurological Status: aware and responsive. Pulmonary Status: breathing comfortably on supplemental oxygen Airway Control: returned to baseline unsupported. Cardiovascular Status: stable. Pain Management: clinically adequate - multimodal analgesia pain management approach Postoperative Hydration: acceptable. Intraoperative Events: no significant anesthesia events Post Operative Nausea/Vomiting Status: no significant post operative nausea or vomiting Recommendation: continue current plan of care and further care per PACU/ICU/floor team. Anesthesia Observations No Documentation SIGNATURE: Deepak Alonso MD PATIENT NAME: Kate Reed DATE: October 23, 2024 TIME: 11:47 AM CSN: [id number] [facility] ANES PRE-OPon 10-23-2024 ANES PRE-OP HNO ID: [id number] Author: DEEPAK ALONSO MD Service: ? Author Type: Physician Type: Anesthesia Preprocedure Evaluation Filed: 10/23/2024 10:47 Note Text: ANESTHESIOLOGY DAY OF SURGERY NOTE : 1975 Procedure Information Anesthesia Start Date/Time: 10/23/24 1043 Procedure: HEMORRHOIDECTOMY EXTERNAL AND INTERNAL 2 OR MORE COLUMNS/GROUPS (Anus) Location[facility] [address] [facility] Surgeons: Lita Schultz MD Estimated body mass index is 29.18 kg/m? as calculated from the following: Height as of 07/23/24: 167.6 cm (5' 6). Weight as of 09/14/24: 82 kg (180 lb 12.4 oz). Most recent hematocrit and potassium results: Hematocrit 39.4 07/22/2024 Potassium 4.5 07/22/2024 Relevant Problems GI (+) GERD (gastroesophageal reflux disease) I - PHYSICAL EVALUATION AIRWAY Patient intubated: No. Tracheostomy tube not present Mallampati: II. TM distance: >3 FB. Neck ROM: full ROM without neurological symptoms. Mouth opening: adequate. Short neck: no. Thick neck: no DENTAL Normal dental observations. II - ANESTHESIA PLAN ASA Score: 3 Anesthetic Plan: general Airway type: ETT NPO Status: adequate Beta Jamil Monitoring Plan Monitoring plan: standard ASA. Post Procedure Analgesic Plan Informed Consent Anesthetic risks, benefits, alternatives, personnel and consent discussed: yes. Patient / Responsible Democrat agrees to proceed: yes Patient / Surrogate agrees to blood products: Yes Vitals Value Taken Time BP 144/77 10/23/24 1000 Pulse 77 10/23/24 1000 Resp 16 10/23/24 1000 Temp 36.8 ?C (98.2 ?F) 10/23/24 1000 SpO2 99 % 10/23/24 1000 Facility-Administered Medications as of 10/23/2024 Medication Dose Route Frequency lidocaine (PF) 10 mg/mL (1 %) 1-2 mg injection (XYLOCAINE) 0.1-0.2 mL INTRADERMAL PRN Or lidocaine 1% 0.25 mL subcutaneous j-tip syringe (XYLOCAINE) 0.25 mL SUBCUTANEOUS PRN NaCl 0.9% iv flush bag 20 mL INTRAVENOUS PRN [COMPLETED] acetaminophen 1,000 mg tab(s) (TYLENOL) 1,000 mg ORAL ONCE Outpatient Medications as of 10/23/2024 Medication Sig cyanocobalamin, vitamin B-12, (VITAMIN B-12 ORAL) Take by mouth once daily. cholecalciferol, vitamin D3, (VITAMIN D3 ORAL) Take by mouth once daily. magnesium carb,citrate,oxide (MAGNESIUM COMPLEX ORAL) Take by mouth once daily. JUNEL , 1-20 mg-mcg per tablet Take 1 tablet by mouth once daily. citalopram (CELEXA) 40 mg tablet Take 1 tablet by mouth once daily. valACYclovir (VALTREX) 500 mg tablet At earliest onset of symptoms take 2 gms , 2 times a day for 1 day meclizine (ANTIVERT) 25 mg tab Take 1 tablet by mouth once daily as needed. rizatriptan (MAXALT) 5 mg tablet Take 1 tablet by mouth as needed. May repeat in 2 hours if needed lidocaine 5 % gel Apply to affected area two times a day as needed for up to 7 days. I have interviewed and examined the patient. I have reviewed the medical record and/or the pre-anesthesia evaluation, pertinent labs, and test results. This contains updated information obtained within 48 hours of Surgery/Procedure. SIGNATURE: Deepak Alonso MD PATIENT NAME: Kate Reed DATE: October 23, 2024 TIME: 10:47 AM CSN: [id number] [facility] BRIEF OP NOTon 10-23-2024 BRIEF OP NOT HNO ID: [id number] Author: FRANKI DIEZ MD Service: Colorectal Author Type: Resident Type: Brief Op Note Filed: 10/23/2024 11:13 Note Text: BRIEF OPERATIVE NOTE - COLORECTAL SURGERY Log ID: [id number] Surgery/Procedure Date: 10/23/2024 Incision/Procedure Start Time: 10:56 AM Incision Close/Procedure End Time: 11:09 AM Surgeon(s) and Commercial Accountant(s): Surgeons and Role: * Lita Schultz MD - Primary * Franki Diez MD - Resident - Assisting No Additional Staff Procedures and Anesthesia: Procedure(s) and Anesthesia Type: * HEMORRHOIDECTOMY EXTERNAL AND INTERNAL 2 OR MORE COLUMNS/GROUPS - General Stoma Type: N/A Findings: Large posterior anal skin tag and RP internal hemorrhoid bundle. [place] hemorrhoidectomy. LL skin tag excised. Estimated Blood Loss: Minimal Specimens: ID Type Source Tests Collected by Time Destination A : Tissue Hemorrhoid, Resection SURGICAL PATHOLOGY Lita Schultz MD 10/23/2024 11:03 AM Diagnosis Code(s): Pre-Op Diagnosis Codes: * External hemorrhoid [K64.4] Postop Diagnosis: Same Drains: None Wound Classification: N/A Complications: None Patient was accompanied to the next level of care by a licensed practitioner from the surgical team pending completion of this brief op note (or operative note) SIGNATURE: Franki Diez MD PATIENT NAME: Kate Reed DATE: October 23, 2024 TIME: 11:13 AM [facility] Basic metabolic 2000 panelon 10-23-2024 Anion gap [Moles/Vol] 9 mmol/L Normal 8-15 [facility] Comment on above: Order Comment: Speci men Type: BLOOD SPECIMENOrdering Facility: [facility] Address: [address] [place] [address] Performed By: #### 2 4321-2 ####[facility] LABCLIA [id number] [place] [address] [place] Calcium [Mass/Vol] 8.3 mg/dL Low 8.5-10.2 [facility] Comment on above: Order Comment: Speci men Type: BLOOD SPECIMENOrdering Facility: [facility] Address: [address] [place] [address] Performed By: #### 2 4321-2 ####[facility] LABCLIA [id number] [place] [address] [place] Chloride [Moles/Vol] 104 mmol/L Normal 98-107 [facility] Comment on above: Order Comment: Speci men Type: BLOOD SPECIMENOrdering Facility: [facility] Address: [address] [place] [address] Performed By: #### 2 4321-2 ####[facility] LABCLIA [id number] [place] [address] [place] CO2 [Moles/Vol] 23 mmol/L Normal 22-30 [facility] Comment on above: Order Comment: Speci men Type: BLOOD SPECIMENOrdering Facility: [facility] Address: [address] [place] [address] Performed By: #### 2 4321-2 ####[facility] LABIA [id number] [place] [address] [place] Creatinine [Mass/Vol] 0.56 mg/dL Low 0.58-0.96 [facility] Comment on above: Order Comment: Speci men Type: BLOOD SPECIMENOrdering Facility: [facility] Address: [address] [place] [address] Performed By: #### 2 4321-2 ####[facility] LABIA [id number] [address] [place] Creatinine and Glomerular filtration rate.predicted panel (S/P/Bld) 111 mL/min/1.73m??? Normal >=60 [facility] Comment on above: Order Comment: Speci men Type: BLOOD SPECIMENOrdering Facility: [facility] Address: [address] [place] [address] Result Comment: Renata mated Glomerular Filtration Rate (eGFR) is calculated using the 2020 CKD-EPI creatinine equation. This equation utilizes serum creatinine, sex, and age as parameters. The creatinine assay has traceable calibration to isotope dilution-mass spectrometry. Refer to KDIGO guidelines for clinical interpretation. In patients with unstable renal function, e.g. those with acute kidney injury, the eGFR may not accurately reflect actual GFR. Performed By: #### 2 4321-2 ####[facility] LABIA [id number] [place] [address] [place] Glucose [Mass/Vol] 89 mg/dL Normal 74-99 [facility] Comment on above: Order Comment: Speci men Type: BLOOD SPECIMENOrdering Facility: [facility] Address: [address] [place] [address] Result Comment: The [place] Diabetes Association (ADA) provides guidance for cutoff values for fasting glucose and random glucose. The ADA defines fasting as no caloric intake for at least 8 hours. Fasting plasma glucose results between 100 to 125 mg/dL indicate increased risk for diabetes (prediabetes). Fasting plasma glucose results greater than or equal to 126 mg/dL meet the criteria for diagnosis of diabetes. In the absence of unequivocal hyperglycemia, results should be confirmed by repeat testing. In a patient with classic symptoms of hyperglycemia or hyperglycemic crisis, random plasma glucose results greater than or equal to 200 mg/dL meet the criteria for diagnosis of diabetes. Reference: Standards of Medical Care in Diabetes 2016, [place] Diabetes Association. Diabetes Care. 2016.39(Suppl 1). Performed By: #### 2 4321-2 ####[facility] LABCLIA [id number] [place] [address] [place] Potassium [Moles/Vol] Normal [facility] Comment on above: Order Comment: Lena perales Type: BLOOD SPECIMENOrdering Facility: [facility] Address: [address] [place] [address] Result Comment: Unab le to assay due to interference from hemolysis. Suggest reorder as clinically indicated. Performed By: #### 2 4321-2 ####[facility] LABCLIA [id number] [place] [address] [place] Sodium [Moles/Vol] 136 mmol/L Normal 136-144 [facility] Comment on above: Order Comment: Lena perales Type: BLOOD SPECIMENOrdering Facility: [facility] Address: [address] [place] [address] Performed By: #### 2 4321-2 ####[facility] LABCLIA [id number] [place] [address] [place] Urea nitrogen [Mass/Vol] 8 mg/dL Normal 7-21 [facility] Comment on above: Order Comment: Lena perales Type: BLOOD SPECIMENOrdering Facility: [facility] Address: [address] [place] [address] Performed By: #### 2 4321-2 ####[facility] LABCLIA [id number] [place] [id number] [place] HISTORY PHYSICALon HISTORY PHYSICAL HNO ID: [id number] Author: FRANKI DIEZ MD Service: Colorectal Author Type: Resident Type: H&P Filed: 10/23/2024 10:31 Note Text: Attestation signed by Lita Schultz MD at 10/23/2024 11:27 AM Agree COMPREHENSIVE DAY OF SURGERY SURGICAL SERVICES HANDP SERVICE DATE: 10/23/2024 SERVICE TIME: 10:30 AM PRIMARY CARE PHYSICIAN: Carol Lebron MD Subjective CHIEF COMPLAINT: Surgery HISTORY OF PRESENT ILLNESS: Ms. Reed is a 49 year old female who presents for HEMORRHOIDECTOMY EXTERNAL AND INTERNAL 2 OR MORE COLUMNS/GROUPS (Anus). PAST MEDICAL HISTORY Diagnosis Date Anxiety 11/24/2020 Biliary dyskinesia 10/30/2013 Chronic cholecystitis without calculus 12/03/2013 Endometriosis, site unspecified Endometriosis Irregular menstrual cycle Irregular periods IRREGULAR MENSTRUATION Mild dysplasia of cervix (FREDO I) Mixed incontinence PAST SURGICAL HISTORY Procedure Laterality Date DELIVERY ONLY , low transverse, x 1 COLONOSCOPY FLX DX W/COLLJ SPEC WHEN PFRMD 09/16/2013 Colonoscopy COLPO OF CERVIX INC UPPER VAG 11/2005 ESOPHAGOGASTRODUODENOSCOPY TRANSORAL DIAGNOSTIC 09/16/2013 EGD LAPS ABD PRTMANDOMENTUM DX W/WO SPEC BR/WA SPX Laparoscopy LASER ABLATION OF ENDOMETRIOSIS LAPS SURG CHOLECYSTECTOMY W/CHOLANGIOGRAPHY 11/24/2013 PAST SURGICAL HISTORY OF 2000 hemorrhoidectomy, anal fissure PAST SURGICAL HISTORY OF 02/26/2022 Placement of retropubic mid-urethral sling FAMILY HISTORY Problem Relation Age of Onset other (Fibro-Myalgia) Mother other (Hypoglycemia) Mother Hypertension Maternal Grandmother Heart Paternal Grandfather Stroke Paternal Grandmother Cancer Paternal Aunt OVARIAN Coronary Artery Disease Paternal Uncle Anesthesia Problems No Family History Social History Tobacco Use Smoking status: Never Smokeless tobacco: Never Substance Use Topics Alcohol use: Yes Comment: OCCASIONALLY, once per week Drug use: No cyanocobalamin, vitamin B-12, (VITAMIN B-12 ORAL), Take by mouth once daily., Disp: , Rfl: , 10/22/2024 cholecalciferol, vitamin D3, (VITAMIN D3 ORAL), Take by mouth once daily., Disp: , Rfl: , 10/22/2024 magnesium carb,citrate,oxide (MAGNESIUM COMPLEX ORAL), Take by mouth once daily., Disp: , Rfl: , 10/22/202412/07, , 1-20 mg-mcg per tablet, Take 1 tablet by mouth once daily., Disp: , Rfl: , 10/22/2024 citalopram (CELEXA) 40 mg tablet, Take 1 tablet by mouth once daily., Disp: 90 tablet, Rfl: 3, 10/22/2024 valACYclovir (VALTREX) 500 mg tablet, At earliest onset of symptoms take 2 gms , 2 times a day for 1 day, Disp: 8 tablet, Rfl: 3, at prn meclizine (ANTIVERT) 25 mg tab, Take 1 tablet by mouth once daily as needed., Disp: 15 tablet, Rfl: 2, at prn rizatriptan (MAXALT) 5 mg tablet, Take 1 tablet by mouth as needed. May repeat in 2 hours if needed, Disp: 20 tablet, Rfl: 0, at prn Current Facility-Administered Medications Medication Dose Route Frequency lidocaine (PF) 10 mg/mL (1 %) 1-2 mg injection (XYLOCAINE) 0.1-0.2 mL INTRADERMAL PRN Or lidocaine 1% 0.25 mL subcutaneous j-tip syringe (XYLOCAINE) 0.25 mL SUBCUTANEOUS PRN NaCl 0.9% iv flush bag 20 mL INTRAVENOUS PRN ALLERGIES Allergen Reactions Erythromycin GI Upset Honey Swelling REVIEW OF SYSTEMS: RESPIRATORY: Negative for cough, hemoptysis, wheezing, COPD, dyspnea or shortness of breath CARDIOVASCULAR: Negative for chest pain, leg swelling, hypertension, CHF or palpitations Objective PHYSICAL EXAM: BP 144/77 Pulse 77 Temp (Src) 98.2 (Temporal) Resp 16 SpO2 99% LMP 07/23/2024 O2 Therapy: Room Air Physical Exam Performed LUNGS: Lungs clear to auscultation, Good diaphragmatic excursion CARDIAC: Normal S1 and S2; no rubs, murmurs, or gallops DATA: Diagnostic tests reviewed for today's visit: Most recent labs and imaging results. Assessment/Plan Assessment AND Plan HEMORRHOIDECTOMY EXTERNAL AND INTERNAL 2 OR MORE COLUMNS/GROUPS (Anus) SIGNATURE: Franki Diez MD PATIENT NAME: Kate Reed DATE: October 23, 2024 TIME: 10:30 AM [facility] OPERATIVE NOon 10-23-2024 OPERATIVE NO HNO ID: [id number] Author: LITA SCHULTZ MD Service: Colorectal Author Type: Physician Type: Operative Report Filed: 10/23/2024 11:26 Note Text: COLORECTAL SURGERY OPERATIVE NOTE OP NOTE LOG ID: [id number] Surgery/Procedure Date: 10/23/2024 Incision/Procedure Start Time: 10:56 AM Incision Close/Procedure End Time: 11:09 AM Surgeon(s)/Proceduralist(s) and Commercial Accountant(s): Surgeons and Role: * Lita Schultz MD - Primary * Franki Diez MD - Resident - Assisting Procedure(s): Excisional hemorrhoidectomy Skin tag removal Fulguration of internal hemorrhoids Anesthesia: General Findings: see below Estimated Blood Loss: 0 ml Specimens: ID Type Source Tests Collected by Time A : Tissue Hemorrhoid, Resection SURGICAL PATHOLOGY Lita Schultz MD 10/23/2024 11:03 AM Complications: None Pre-Op/Pre-Procedure Diagnosis: internal and external hemorrhoids, anal skin tags Post-Op/Post-Procedure Diagnosis: same Wound class: n/a Indications for procedure: Kate Reed is a 49 year old female who presented with bothersome internal and external hemorrhoids. All risks and benefits were discussed with the patient, who wished to proceed. Risks include, but are not limited to: bleeding, damage to surrounding tissues, need for reoperation, kidney failure, heart attack, stroke, , venous thromboembolism, etc. Description of procedure: The patient was brought to the operating room and a primary huddle was performed. Plan of care discussed with: Provider, RN, Patient. General anesthesia was induced and the patient was placed in the lithotomy position. Arms were kept out. All pressure points were padded appropriately. The perineum was prepped in the standard fashion. A pre-incision huddle out was performed. On external anal exam there was a large skin tag in the posterior midline that was extended just to the left of the posterior midline. There was a small skin tag in the left anterior location as well. An anoscopic examination demonstrated that there was an internal component to the posterior hemorrhoid. The external and internal components were grasped with tonsil clamps. The Ligasure exact device was used to circumferentially excise the hemorrhoid with great care to avoid the internal sphincter. Hemostasis was ensured. Attention was turned to the anterior left skin tag. This only had an external component. The Ligasure exact device was used to excise this skin tag. An anoscopic examination was performed again. There were some engorged internal hemorrhoids in the right anterior location AND these were fulgurated using the Ligasure device. Hemostasis was again ensured and the area was injected with exparel + marcaine. The patient was then awoken from anesthesia. The patient was taken to the recover room in stable condition. The patient did tolerate the procedure well without complications. ATTESTATION: I was present and scrubbed in throughout the critical portions of procedure. SIGNATURE: Lita Schultz MD PATIENT NAME: Kate Reed DATE: October 23, 2024 TIME: 11:17 AM PAGER/CONTACT #: [facility] SURGICAL PATHOLOGYon 024 CASE REPORT [facility] Comment on above: Order Comment: Speci men Type: TISSUE SPECIMEN [facility] Facility[facility] Address: [address] [place] [address] Result Comment: Surg [facility] Pathology Report Case: [id number] Authorizing Provider: Lita Schultz MD Collected: 10/23/2024 11:03 AM Ordering Location: Admitting Received: 10/23/2024 02:46 PM Pathologist: Philippe Sher MD Specimen: Hemorrhoid, Resection Performed By: #### S #### [facility] CLIA [id number] [address] [place] [address] [place] CLINICAL HISTORY Normal [facility] Comment on above: Order Comment: Speci men Type: TISSUE SPECIMEN [facility]: [facility] Address: [address] [place] [address] Result Comment: Pre- op diagnosis: External hemorrhoid [K64.4] Performed By: #### S #### [facility] CLIA [id number] [address] [place] [address] [place] FINAL DIAGNOSIS [facility] Comment on above: Order Comment: Speci men Type: TISSUE SPECIMEN Ordering Facility: [facility] Address: [address] [place] [address] Result Comment: Cassia good, hemorrhoid, resection: -Anal tissue with ectatic blood vessels, consistent with hemorrhoid Performed By: #### S #### [facility] CLIA [id number] [address] [place] [address] [place] FINAL PERFORMING LAB [facility] Comment on above: Order Comment: Speci men Type: TISSUE SPECIMEN Ordering Facility: [facility] Address: [address] [place] [address] Result Comment: Diag nostic interpretation performed at [facility], [address] [place] [address] CLIA# [id number] Lining Scrubber: Josh Dimas M.D. Performed By: #### S #### [facility] CLIA [id number] [address] [place] [address] [place] GROSS DESCRIPTION Normal [facility] Comment on above: Order Comment: Speci men Type: TISSUE SPECIMEN Ordering Facility: [facility] Address: [address] [place] [address] Result Comment: Nelson. Rosanna emorrhoid, Resection Received fresh labeled hemorrhage, resection is an excision at anal mucosa measuring 3 x 2 x 0.5 cm. The mucosa is pink-purple and glistening. The lumen contains multiple dilated vessels filled with blood and blood clot. There are no areas of induration. Head Orthopedic Team Physician sections are submitted in cassette A1. ALYSON October 23, 2024 3:34 PM Gross examination performed at [facility], [address] [place] [address] Performed By: #### S #### [facility] CLIA [id number] [address] [place] [id number] CNOVon 09-14-2024 CNOV Office Visit ([facility] ) KATE REED ([id number]) 1975 F Date Time Provider Department 09/14/24 8:15 AM NELLY TAYLOR [facility] During your visit today, we recorded the following information about you: Temperature Pulse Respiration Blood pressure 98.7 degrees 93/minute 16/minute 124/84 Weight 82 kg Nelly Taylor APRN.INDUCTION COORDINATION ENGINEER 09/14/2024 9:08 AM Signed Subjective HPI Kate Acuna Brianna is a 49 year old female who presents with cough, chest and nasal congestion for the past 20 days. She was seen here on 09/09 for same, had negative chest xray. She did a COVID test at home. States the cough is worsening and is productive of green/yellow sputum. She cannot taste and cannot smell. She has pain in her teeth and over sinus areas. She has been using Nyquil and Mucinex and tylenol at home. Review of Systems Constitutional: Negative for chills, fever and malaise/fatigue. HENT: Positive for congestion, sinus pain and sore throat. Negative for ear pain. Respiratory: Positive for cough and sputum production. Negative for shortness of breath. Cardiovascular: Negative for chest pain. Gastrointestinal: Negative for diarrhea, nausea and vomiting. Musculoskeletal: Negative for myalgias. Neurological: Positive for headaches. BP 124/84 Pulse 93 Temp 37.1 ?C (98.7 ?F) (Tympanic) Resp 16 Wt 82 kg (180 lb 12.4 oz) LMP 07/23/2024 (Exact Date) SpO2 97% BMI 29.18 kg/m? PAST MEDICAL HISTORY Diagnosis Date Anxiety 11/24/2020 Biliary dyskinesia 10/30/2013 Chronic cholecystitis without calculus 12/03/2013 Endometriosis, site unspecified Endometriosis Irregular menstrual cycle Irregular periods IRREGULAR MENSTRUATION Mild dysplasia of cervix (FREDO I) Mixed incontinence PAST SURGICAL HISTORY Procedure Laterality Date DELIVERY ONLY , low transverse, x 1 COLONOSCOPY FLX DX W/COLLJ SPEC WHEN PFRMD 09/16/2013 Colonoscopy COLPO OF CERVIX INC UPPER VAG 11/2005 ESOPHAGOGASTRODUODENOSCOPY TRANSORAL DIAGNOSTIC 09/16/2013 EGD LAPS ABD PRTMANDOMENTUM DX W/WO SPEC BR/WA SPX Laparoscopy LASER ABLATION OF ENDOMETRIOSIS LAPS SURG CHOLECYSTECTOMY W/CHOLANGIOGRAPHY 11/24/2013 PAST SURGICAL HISTORY OF 2000 hemorrhoidectomy, anal fissure PAST SURGICAL HISTORY OF 02/26/2022 Placement of retropubic mid-urethral sling ALLERGIES Erythromycin and Honey MEDICATIONS JUNE12/07, , 1-20 mg-mcg per tablet Take 1 tablet by mouth once daily. citalopram (CELEXA) 40 mg tablet Take 1 tablet by mouth once daily. valACYclovir (VALTREX) 500 mg tablet At earliest onset of symptoms take 2 gms , 2 times a day for 1 day meclizine (ANTIVERT) 25 mg tab Take 1 tablet by mouth once daily as needed. rizatriptan (MAXALT) 5 mg tablet Take 1 tablet by mouth as needed. May repeat in 2 hours if needed amoxicillin-clavulanate potassium (AUGMENTIN) 875-125 mg per tablet Take 1 tablet by mouth two times a day for 7 days. predniSONE (DELTASONE) 20 mg tablet Take 2 tablets by mouth once daily for 4 days. Take daily with food. FAMILY HISTORY Problem Relation Age of Onset other (Fibro-Myalgia) Mother other (Hypoglycemia) Mother Hypertension Maternal Grandmother Heart Paternal Grandfather Stroke Paternal Grandmother Cancer Paternal Aunt OVARIAN Coronary Artery Disease Paternal Uncle Anesthesia Problems No Family History Social History Tobacco Use Smoking status: Never Smokeless tobacco: Never Substance Use Topics Alcohol use: Yes Comment: OCCASIONALLY, once per week Drug use: No Objective Physical Exam Vitals and nursing note reviewed. Constitutional: General: She is not in acute distress. Appearance: Normal appearance. She is not ill-appearing. HENT: Right Ear: Tympanic membrane, ear canal and external ear normal. Left Ear: Tympanic membrane, ear canal and external ear normal. Nose: Nasal tenderness, mucosal edema, congestion and rhinorrhea present. Mouth/Throat: Pharynx: Uvula midline. Posterior oropharyngeal erythema present. No oropharyngeal exudate. Cardiovascular: Rate and Rhythm: Normal rate and regular rhythm. Heart sounds: Normal heart sounds. Pulmonary: Effort: Pulmonary effort is normal. No respiratory distress. Breath sounds: Normal breath sounds. No wheezing or rales. Comments: Frequent productive cough during exam Musculoskeletal: Cervical back: Neck supple. Lymphadenopathy: Cervical: No cervical adenopathy. Skin: General: Skin is warm and dry. Findings: No erythema or rash. Neurological: Mental Status: She is alert. ASSESSMENT/PLAN: 1. Sore throat - ICD9: 462, ICD10: J02.9 (primary diagnosis) - Group A strep molecular testing negative - Discussed supportive care treatment with fluids, rest and analgesia. - STREP A MOLECULAR (POC) 2. Sinobronchitis - ICD9: 473.9, 490, ICD10: J32.9, J40 - Will begin treatment with (more content not included)... [facility] STREP A MOLECULAR (POC)on Procedural Control Valid [facility] Strep A (POCT) Negative Negative [facility] CNOVon 09-09-2024 CNOV Office Visit ([facility] ) KATE REED ([id number]) 1975 F Date Time Provider Department 09/09/24 2:15 PM NICKO GEORGE [facility] During your visit today, we recorded the following information about you: Temperature Pulse Respiration Blood pressure 99.4 degrees 102/minute 18/minute 128/80 Weight 82.2 kg Nicko George MD 09/09/2024 3:14 PM Signed Patient presents with: Cough: Cough, fever, bodyaches, chills x 10 days HPI: Feeling sick for 10 days. She has felt progressively worsening symptoms. She felt bad enough to leave work today. She has had pneumonia before and this somewhat reminds her of it. Positive symptoms: Cough, Shortness of breath, Sore throat, Earache, Nasal Congestion, Rhinorrhea, Fever, Chills, Malaise, Fatigue, Nausea, Negative symptoms: Sinus pressure, Vomiting, Diarrhea, OTC: Ibuprofen, Tylenol, benadryl Had COVID and Influenza vaccines last week. PAST MEDICAL HISTORY Diagnosis Date Anxiety 11/24/2020 Biliary dyskinesia 10/30/2013 Chronic cholecystitis without calculus 12/03/2013 Endometriosis, site unspecified Endometriosis Irregular menstrual cycle Irregular periods IRREGULAR MENSTRUATION Mild dysplasia of cervix (FREDO I) Mixed incontinence MEDICATIONS: Current Outpatient Medications Medication Sig JUNEL 12/07, , 1-20 mg-mcg per tablet Take 1 tablet by mouth once daily. citalopram (CELEXA) 40 mg tablet Take 1 tablet by mouth once daily. valACYclovir (VALTREX) 500 mg tablet At earliest onset of symptoms take 2 gms , 2 times a day for 1 day meclizine (ANTIVERT) 25 mg tab Take 1 tablet by mouth once daily as needed. rizatriptan (MAXALT) 5 mg tablet Take 1 tablet by mouth as needed. May repeat in 2 hours if needed Naratriptan HCl 1 mg tab TAKE 1 TABLET TWICE DAILY INSTRUCTED X 4 DAYS MONTHLY (STARTING 1 DAY PRIOR TO CYCLE). No current facility-administered medications for this visit. ALLERGIES: ALLERGIES Allergen Reactions Erythromycin GI Upset Honey Swelling VITALS: BP 128/80 Pulse 102 Temp 37.4 ?C (99.4 ?F) (Tympanic) Resp 18 Wt 82.2 kg (181 lb 3.5 oz) LMP 07/23/2024 (Exact Date) SpO2 99% BMI 29.25 kg/m? PHYSICAL EXAM: GEN: mildly ill appearing, pleasant, alert HEENT: PERRL, EOMI, conjunctiva clear Ears: canals clear. TMs without erythema, bulge, or effusion Sinuses: non-tender frontal sinus, non-tender maxillary sinuses Throat: moist mucous membranes, mild erythema, no exudate Neck: supple, no thyromegaly, no lymphadenopathy HEART: borderline fast rate and regular rhythm, no murmurs LUNGS: clear to auscultation, no wheezes or crackles, no increased WOB ASSESSMENT/PLAN: 1. Acute cough - ICD9: 786.2, ICD10: R05.1 - XR CHEST 2V FRONTAL/LAT - no acute findings. - possible new viral URI this week producing worsening symptoms. - Discussed supportive care treatment with rest, cold medicine, and analgesia. Nicko George MD Allergies As of Date: 09/09/2024 Noted Allergy Reaction ERYTHROMYCIN 10/15/2005 8 - GI Upset HONEY 07/04/2009 7 - Swelling Date Reviewed: 09/09/2024 Reviewed by: Miryam Pham LPN - Fully Assessed Reason for Visit: Cough [28] Cmt: Cough, fever, bodyaches, chills x 10 days Primary Visit Diagnosis:Acute cough [R05.1] Order(s):XR CHEST 2V FRONTAL/LAT [[id number]] Order #: [id number] FUTURE Prescriptions as of 09/09/2024 - , 1-20 mg-mcg per tablet Take 1 tablet by mouth once daily. - citalopram (CELEXA) 40 mg tablet Take 1 tablet by mouth once daily. - valACYclovir (VALTREX) 500 mg tablet At earliest onset of symptoms take 2 gms , 2 times a day for 1 day - meclizine (ANTIVERT) 25 mg tab Take 1 tablet by mouth once daily as needed. - rizatriptan (MAXALT) 5 mg tablet Take 1 tablet by mouth as needed. May repeat in 2 hours if needed Meds Comments as of 07/06/2010: Problem List As Of Date 09/09/2024 Noted Resolved Irregular menstrual cycle [N92.6] 08/08/2012 ENDOMETRIOSIS NOS [N80.9] Abdominal pain [R10.9] 09/07/2013 11/24/2020 Altered bowel function [R19.8] 09/07/2013 11/24/2020 GERD (gastroesophageal reflux disease) [K21.9] 09/07/2013 Biliary dyskinesia [K82.8] 10/30/2013 11/24/2020 Chronic cholecystitis without calculus [K81.1] 12/03/2013 11/24/2020 Anxiety [F41.9] 11/24/2020 Vertigo [R42] 10/16/2022 Medications Discontinued During This Encounter Prescriptions - Naratriptan HCl 1 mg tab (Discontinued) TAKE 1 TABLET TWICE DAILY INSTRUCTED X 4 DAYS MONTHLY (STARTING 1 DAY PRIOR TO CYCLE). Level of Service: OFFICE/OUTPATIENT ESTABLISHED LOW [facility] 20 MIN [[id number]] Letter Text Encounter Status:Closed by NICKO GEORGE on 09/09/24 [facility] XR CHEST 2V FRONTAL/LATon XR CHEST 2V FRONTAL/LAT * * *Final Report* * * DATE OF EXAM: Sep 09 2024 2:44PM WOX [id number] - XR CHEST 2V FRONTAL/LAT / PROCEDURE REASON: Acute cough * * * * Physician Interpretation * * * * EXAMINATION: CHEST RADIOGRAPH (2 VIEW FRONTAL and LATERAL) CLINICAL HISTORY: Acute cough MQ: XC2_6 EXAM DATE/TIME: 09/09/2024 2:44 PM COMPARISON: Chest x-ray dated 01/26/2015 RESULT: Lines, tubes, and devices: None. Lungs and pleura: No consolidation. No lung mass. No pleural effusion. No pneumothorax. Cardiomediastinal silhouette: Normal cardiomediastinal silhouette. Bones and soft tissues: Unremarkable. IMPRESSION: No acute radiographic abnormality. Cost Accounting Analyst: PSCB Transcribe Date/Time: Sep 09 2024 2:47P Dictated by : LIZETT PALMER MD This examination was interpreted and the report reviewed and electronically signed by: LIZETT PALMER MD on Sep 09 2024 2:47PM EST [id number] [facility] XR Chest PA and Lateralon IMPRESSION: No acute radiographic abnormality. Cost Accounting Analyst: LEE Transcribe Date/Time: Sep 09 2024 2:47P Dictated by : LIZETT PALMER MD This examination was interpreted and the report reviewed and electronically signed by: LIZETT PALMER MD on Sep 09 2024 2:47PM [facility] DIVISION OF RADIOLOGY * * *Final Report* * * DATE OF EXAM: Sep 09 2024 2:44PM WOX [id number] - XR CHEST 2V FRONTAL/LAT / PROCEDURE REASON: Acute cough * * * * Physician Interpretation * * * * EXAMINATION: CHEST RADIOGRAPH (2 VIEW FRONTAL & LATERAL) CLINICAL HISTORY: Acute cough MQ: XC2_6 EXAM DATE/TIME: 09/09/2024 2:44 PM COMPARISON: Chest x-ray dated 01/26/2015 RESULT: Lines, tubes, and devices: None. Lungs and pleura: No consolidation. No lung mass. No pleural effusion. No pneumothorax. Cardiomediastinal silhouette: Normal cardiomediastinal silhouette. Bones and soft tissues: Unremarkable. DIVISION OF RADIOLOGY Provider, [facility] - 09/09/2024 * * *Final Report* * * DATE OF EXAM: Sep 09 2024 2:44PM WOX [id number] - XR CHEST 2V FRONTAL/LAT / PROCEDURE REASON: Acute cough * * * * Physician Interpretation * * * * EXAMINATION: CHEST RADIOGRAPH (2 VIEW FRONTAL & LATERAL) CLINICAL HISTORY: Acute cough MQ: XC2_6 EXAM DATE/TIME: 09/09/2024 2:44 PM COMPARISON: Chest x-ray dated 01/26/2015 RESULT: Lines, tubes, and devices: None. Lungs and pleura: No consolidation. No lung mass. No pleural effusion. No pneumothorax. Cardiomediastinal silhouette: Normal cardiomediastinal silhouette. Bones and soft tissues: Unremarkable. IMPRESSION IMPRESSION: No acute radiographic abnormality. Cost Accounting Analyst: PSCB Transcribe Date/Time: Sep 09 2024 2:47P Dictated by : LIZETT PALMER MD This examination was interpreted and the report reviewed and electronically signed by: LIZETT PALMER MD on Sep 09 2024 2:47PM [facility] Radiology Study observation (narrative) [facility] XR Chest PA and LateralOrder ed By: Cc Provider on 09-09-2024 [facility] CNOVon 07-23-2024 CNOV Office Visit (CORSM[facility] ) KATE REED ([id number]) 1975 F Date Time Provider Department 07/23/24 2:00 PM LITA SCHULTZ During your visit today, we recorded the following information about you: Temperature Pulse Respiration Blood pressure 97.6 degrees 82/minute 17/minute 135/67 Weight Height Last Period 78.5 kg 1.676 m 07/23/24 Lita Schultz MD 07/23/2024 4:14 PM Signed COLORECTAL SURGERY New Patient Visit Chief Complaint: Hemorrhoids History of Present Illness: Kate Reed is a 48 year old female who presents for hemorrhoids. The patient complains of prolapse and thrombosis (which is very painful). This initially began couple years. The patient does complain of pain. The pattern of this is cyclical. The patient does complain of bulging/protrusion of tissues. The patient does complain of swelling. The patient does complain of pruritus. The patient does complain of pain with defecation. She had a hemorrhoidectomy in 2000. The patient has 1 bowel movements per day. The patient does complain of bleeding ( with wiping/not in the toilet). The patient is not taking a stool softener. The patient is not taking a fiber supplement. She takes a prebiotic and probiotic gummy that helps regulate her stools. The patient is straining to have a bowel movement. The patient's last colonoscopy was 09/14/22 and showed Impression: - Non-thrombosed external hemorrhoids and internal hemorrhoids that prolapse with straining, but require manual replacement into the anal canal (Grade III) found on digital rectal exam. Left lateral external hemorrhoidal tag ??Tortuous colon. ??The examination was otherwise normal. ??No specimens collected.. PAST MEDICAL HISTORY 11/24/2020: Anxiety 10/30/2013: Biliary dyskinesia 12/03/2013: Chronic cholecystitis without calculus No date: Endometriosis, site unspecified Comment: Endometriosis No date: Irregular menstrual cycle Comment: Irregular periods No date: IRREGULAR MENSTRUATION No date: Mild dysplasia of cervix (FREDO I) No date: Mixed incontinence PAST SURGICAL HISTORY No date: DELIVERY ONLY Comment: , low transverse, x 1 09/16/2013: COLONOSCOPY FLX DX W/COLLJ SPEC WHEN PFRMD Comment: Colonoscopy 11/2005: COLPO OF CERVIX INC UPPER VAG 09/16/2013: ESOPHAGOGASTRODUODENOSCOPY TRANSORAL DIAGNOSTIC Comment: EGD No date: LAPS ABD PRTMANDOMENTUM DX W/WO SPEC BR/WA SPX Comment: Laparoscopy LASER ABLATION OF ENDOMETRIOSIS 11/24/2013: LAPS SURG CHOLECYSTECTOMY W/CHOLANGIOGRAPHY 2000: PAST SURGICAL HISTORY OF Comment: hemorrhoidectomy, anal fissure 02/26/2022: PAST SURGICAL HISTORY OF Comment: Placement of retropubic mid-urethral sling FAMILY HISTORY Problem Relation Age of Onset other (Fibro-Myalgia) Mother other (Hypoglycemia) Mother Hypertension Maternal Grandmother Heart Paternal Grandfather Stroke Paternal Grandmother Cancer Paternal Aunt OVARIAN Coronary Artery Disease Paternal Uncle Anesthesia Problems No Family History Social History Tobacco Use Smoking status: Never Smokeless tobacco: Never Substance Use Topics Alcohol use: Yes Comment: OCCASIONALLY, once per week Drug use: No ALLERGIES Allergen Reactions Erythromycin GI Upset Honey Swelling Current Outpatient Medications Medication Sig Dispense Refill 12/07, , 1-20 mg-mcg per tablet Take 1 tablet by mouth once daily. citalopram (CELEXA) 40 mg tablet Take 1 tablet by mouth once daily. 90 tablet 3 valACYclovir (VALTREX) 500 mg tablet At earliest onset of symptoms take 2 gms , 2 times a day for 1 day 8 tablet 3 Naratriptan HCl 1 mg tab TAKE 1 TABLET TWICE DAILY INSTRUCTED X 4 DAYS MONTHLY (STARTING 1 DAY PRIOR TO CYCLE). 9 tablet 2 meclizine (ANTIVERT) 25 mg tab Take 1 tablet by mouth once daily as needed. 15 tablet 2 rizatriptan (MAXALT) 5 mg tablet Take 1 tablet by mouth as needed. May repeat in 2 hours if needed 20 tablet 0 No current facility-administered medications for this visit. Review of Systems / PACC screen: Do you have difficulty climbing a full flight of stairs without feeling short of breath? no Do you require oxygen for your breathing or have your gone to an emergency department because of breathing problems? no Are you on dialysis or have you been told that your kidneys do not work well as they should? no Do have an implanted cardiac device (pacemaker, defibrillator etc.) that has not been checked in the last 6 months? no Have you had an organ transplant? no Have you been told that you had excessive bleeding during surgical procedures or do you take blood thinning medications other than aspirin? no Have you ever had a heart attack, heart stents/surgery, valve problems, or other heart problems? no Have you had a stroke, seizures, or unexplained loss of consciousness? no Do you have a neurologi (more content not included)... [facility] HISTORY PHYSICALon HISTORY PHYSICAL HNO ID: [id number] Author: LITA SCHULTZ MD Service: ? Author Type: Physician Type: H&P Filed: 07/23/2024 16:14 Note Text: COLORECTAL SURGERY New Patient Visit Chief Complaint: Hemorrhoids History of Present Illness: Kate Reed is a 48 year old female who presents for hemorrhoids. The patient complains of prolapse and thrombosis (which is very painful). This initially began couple years. The patient does complain of pain. The pattern of this is cyclical. The patient does complain of bulging/protrusion of tissues. The patient does complain of swelling. The patient does complain of pruritus. The patient does complain of pain with defecation. She had a hemorrhoidectomy in 2000. The patient has 1 bowel movements per day. The patient does complain of bleeding ( with wiping/not in the toilet). The patient is not taking a stool softener. The patient is not taking a fiber supplement. She takes a prebiotic and probiotic gummy that helps regulate her stools. The patient is straining to have a bowel movement. The patient's last colonoscopy was 09/14/22 and showed Impression: - Non-thrombosed external hemorrhoids and internal hemorrhoids that prolapse with straining, but require manual replacement into the anal canal (Grade III) found on digital rectal exam. Left lateral external hemorrhoidal tag ??Tortuous colon. ??The examination was otherwise normal. ??No specimens collected.. PAST MEDICAL HISTORY 11/24/2020: Anxiety 10/30/2013: Biliary dyskinesia 12/03/2013: Chronic cholecystitis without calculus No date: Endometriosis, site unspecified Comment: Endometriosis No date: Irregular menstrual cycle Comment: Irregular periods No date: IRREGULAR MENSTRUATION No date: Mild dysplasia of cervix (FREDO I) No date: Mixed incontinence PAST SURGICAL HISTORY No date: DELIVERY ONLY Comment: , low transverse, x 1 09/16/2013: COLONOSCOPY FLX DX W/COLLJ SPEC WHEN PFRMD Comment: Colonoscopy 11/2005: COLPO OF CERVIX INC UPPER VAG 09/16/2013: ESOPHAGOGASTRODUODENOSCOPY TRANSORAL DIAGNOSTIC Comment: EGD No date: LAPS ABD PRTMANDOMENTUM DX W/WO SPEC BR/WA SPX Comment: Laparoscopy LASER ABLATION OF ENDOMETRIOSIS 11/24/2013: LAPS SURG CHOLECYSTECTOMY W/CHOLANGIOGRAPHY 2000: PAST SURGICAL HISTORY OF Comment: hemorrhoidectomy, anal fissure 02/26/2022: PAST SURGICAL HISTORY OF Comment: Placement of retropubic mid-urethral sling FAMILY HISTORY Problem Relation Age of Onset other (Fibro-Myalgia) Mother other (Hypoglycemia) Mother Hypertension Maternal Grandmother Heart Paternal Grandfather Stroke Paternal Grandmother Cancer Paternal Aunt OVARIAN Coronary Artery Disease Paternal Uncle Anesthesia Problems No Family History Social History Tobacco Use Smoking status: Never Smokeless tobacco: Never Substance Use Topics Alcohol use: Yes Comment: OCCASIONALLY, once per week Drug use: No ALLERGIES Allergen Reactions Erythromycin GI Upset Honey Swelling Current Outpatient Medications Medication Sig Dispense Refill 12/07, , 1-20 mg-mcg per tablet Take 1 tablet by mouth once daily. citalopram (CELEXA) 40 mg tablet Take 1 tablet by mouth once daily. 90 tablet 3 valACYclovir (VALTREX) 500 mg tablet At earliest onset of symptoms take 2 gms , 2 times a day for 1 day 8 tablet 3 Naratriptan HCl 1 mg tab TAKE 1 TABLET TWICE DAILY INSTRUCTED X 4 DAYS MONTHLY (STARTING 1 DAY PRIOR TO CYCLE). 9 tablet 2 meclizine (ANTIVERT) 25 mg tab Take 1 tablet by mouth once daily as needed. 15 tablet 2 rizatriptan (MAXALT) 5 mg tablet Take 1 tablet by mouth as needed. May repeat in 2 hours if needed 20 tablet 0 No current facility-administered medications for this visit. Review of Systems / PACC screen: Do you have difficulty climbing a full flight of stairs without feeling short of breath? no Do you require oxygen for your breathing or have your gone to an emergency department because of breathing problems? no Are you on dialysis or have you been told that your kidneys do not work well as they should? no Do have an implanted cardiac device (pacemaker, defibrillator etc.) that has not been checked in the last 6 months? no Have you had an organ transplant? no Have you been told that you had excessive bleeding during surgical procedures or do you take blood thinning medications other than aspirin? no Have you ever had a heart attack, heart stents/surgery, valve problems, or other heart problems? no Have you had a stroke, seizures, or unexplained loss of consciousness? no Do you have a neurologic condition like Parkinson's disease or multiple sclerosis? No- vertigo Have you or a blood relative had a life-threatening reaction to anesthesia? no Do you have cirrhosis of the liver or other liver disease? no Have you had a blood clot within the past year? no Do you take insulin or other injections for diabetes? no Do you have sle (more content not included)... [facility] CBC W Auto Differential pane l (Bld)on 07-22-2024 Basophils (Bld) [#/Vol] 10*3/uL Normal <0.11 [facility] Comment on above: Order Comment: Lena perales Type: BLOOD SPECIMENOrdering Facility: [facility] Address: [address] [place] [address] Performed By: #### 5 7021-8 ####[facility] LABIA [id number] [place] [address] [place] Basophils/100 WBC (Bld) 0.7 % Normal [facility] Comment on above: Order Comment: Lena perales Type: BLOOD SPECIMENOrdering Facility: [facility] Address: [address] [place] [address] Performed By: #### 5 7021-8 ####[facility] LABCLIA [id number] [place] [address] [place] Differential cell count method Nom (Bld) Auto Normal [facility] Comment on above: Order Comment: Lena perales Type: BLOOD SPECIMENOrdering Facility: [facility] Address: [address] [place] [address] Performed By: #### 5 7021-8 ####[facility] LABCLIA [id number] [place] [address] [place] Eosinophils (Bld) [#/Vol] 0.09 10*3/uL Normal <0.46 [facility] Comment on above: Order Comment: Speci men Type: BLOOD SPECIMENOrdering Facility: [facility] Address: [address] [place] [address] Performed By: #### 5 7021-8 ####[facility] LABCLIA [id number] [place] [address] [place] Eosinophils/100 WBC (Bld) 3.1 % Normal [facility] Comment on above: Order Comment: Speci men Type: BLOOD SPECIMENOrdering Facility: [facility] Address: [address] [place] [address] Performed By: #### 5 7021-8 ####[facility] LABCLIA [id number] [place] [address] [place] Erythrocyte distribution width (RBC) [Ratio] 11.5 % Normal 11.5-15.0 [facility] Comment on above: Order Comment: Speci men Type: BLOOD SPECIMENOrdering Facility: [facility] Address: [address] [place] [address] Performed By: #### 5 7021-8 ####[facility] LABCLIA [id number] [place] [address] [place] Hematocrit (Bld) [Volume fraction] 39.4 % Normal 36.0-46.0 [facility] Comment on above: Order Comment: Speci men Type: BLOOD SPECIMENOrdering Facility: [facility] Address: [address] [place] [address] Performed By: #### 5 7021-8 ####[facility] LABCLIA [id number] [place] [address] [place] Hemoglobin (Bld) [Mass/Vol] 13.0 g/dL Normal 11.5-15.5 [facility] Comment on above: Order Comment: Speci men Type: BLOOD SPECIMENOrdering Facility: [facility] Address: [address] [place] [address] Performed By: #### 5 7021-8 ####[facility] LABCLIA [id number] [place] [address] [place] Immature granulocytes (Bld) [#/Vol] 10*3/uL Normal <0.10 [facility] Comment on above: Order Comment: Speci men Type: BLOOD SPECIMENOrdering Facility: [facility] Address: [address] [place] [address] Performed By: #### 5 7021-8 ####[facility] LABCLIA [id number] [place] [address] [place] Immature granulocytes/100 WBC (Bld) 0.7 % Normal [facility] Comment on above: Order Comment: Speci men Type: BLOOD SPECIMENOrdering Facility: [facility] Address: [address] [place] [address] Performed By: #### 5 7021-8 ####[facility] LABCLIA [id number] [place] [address] [place] Lymphocytes (Bld) [#/Vol] 0.51 10*3/uL Low 1.00-4.00 [facility] Comment on above: Order Comment: Speci men Type: BLOOD SPECIMENOrdering Facility: [facility] Address: [address] [place] [address] Performed By: #### 5 7021-8 ####[facility] LABCLIA [id number] [place] [address] [place] Lymphocytes/100 WBC (Bld) 17.6 % Normal [facility] Comment on above: Order Comment: Speci men Type: BLOOD SPECIMENOrdering Facility: [facility] Address: [address] [place] [address] Performed By: #### 5 7021-8 ####[facility] LABCLIA [id number] [place] [address] [place] MCH (RBC) [Entitic mass] 31.6 pg Normal 26.0-34.0 [facility] Comment on above: Order Comment: Speci men Type: BLOOD SPECIMENOrdering Facility: [facility] Address: [address] [place] [address] Performed By: #### 5 7021-8 ####[facility] LABIA [id number] [place] [address] [place] MCHC (RBC) [Mass/Vol] 33.0 g/dL Normal 30.5-36.0 [facility] Comment on above: Order Comment: Speci men Type: BLOOD SPECIMENOrdering Facility: [facility] Address: [address] [place] [address] Performed By: #### 5 7021-8 ####[facility] LABIA [id number] [place] [address] [place] MCV (RBC) [Entitic vol] 95.9 fL Normal 80.0-100.0 [facility] Comment on above: Order Comment: Speci men Type: BLOOD SPECIMENOrdering Facility: [facility] Address: [address] [place] [address] Performed By: #### 5 7021-8 ####[facility] LABCLIA [id number] [place] [address] [place] Monocytes (Bld) [#/Vol] 0.41 10*3/uL Normal <0.87 [facility] Comment on above: Order Comment: Speci men Type: BLOOD SPECIMENOrdering Facility: [facility] Address: [address] [place] [address] Performed By: #### 5 7021-8 ####[facility] LABCLIA [id number] [place] [address] [place] Monocytes/100 WBC (Bld) 14.1 % Normal [facility] Comment on above: Order Comment: Speci men Type: BLOOD SPECIMENOrdering Facility: [facility] Address: [address] [place] [address] Performed By: #### 5 7021-8 ####[facility] LABCLIA [id number] [place] [address] [place] Neutrophils (Bld) [#/Vol] 1.85 10*3/uL Normal 1.45-7.50 [facility] Comment on above: Order Comment: Speci men Type: BLOOD SPECIMENOrdering Facility: [facility] Address: [address] [place] [address] Performed By: #### 5 7021-8 ####[facility] LABIA [id number] [place] [address] [place] Neutrophils/100 WBC (Bld) 63.8 % Normal [facility] Comment on above: Order Comment: Speci men Type: BLOOD SPECIMENOrdering Facility: [facility] Address: [address] [place] [address] Performed By: #### 5 7021-8 ####[facility] LABIA [id number] [place] [address] [place] Nucleated RBC (Bld) [#/Vol] 10*3/uL Normal <0.01 [facility] Comment on above: Order Comment: Speci men Type: BLOOD SPECIMENOrdering Facility: [facility] Address: [address] [place] [address] Performed By: #### 5 7021-8 ####[facility] LABCLIA [id number] [place] [address] [place] Nucleated RBC/100 WBC (Bld) [Ratio] 0.0 /100 WBC Normal [facility] Comment on above: Order Comment: Speci men Type: BLOOD SPECIMENOrdering Facility: [facility] Address: [address] [place] [address] Performed By: #### 5 7021-8 ####[facility] LABIA [id number] [place] [address] [place] Platelet mean volume (Bld) [Entitic vol] 9.4 fL Normal 9.0-12.7 [facility] Comment on above: Order Comment: Speci men Type: BLOOD SPECIMENOrdering Facility: [facility] Address: [address] [place] [address] Performed By: #### 5 7021-8 ####[facility] LABIA [id number] [place] [address] [place] Platelets (Bld) [#/Vol] 283 10*3/uL Normal 150-400 [facility] Comment on above: Order Comment: Speci men Type: BLOOD SPECIMENOrdering Facility: [facility] Address: [address] [place] [address] Performed By: #### 5 7021-8 ####[facility] LABIA [id number] [place] [address] [place] RBC (Bld) [#/Vol] 4.11 10*6/uL Normal 3.90-5.20 [facility] Comment on above: Order Comment: Speci men Type: BLOOD SPECIMENOrdering Facility: [facility] Address: [address] [place] [address] Performed By: #### 5 7021-8 ####[facility] LABIA [id number] [place] [address] [place] WBC (Bld) [#/Vol] 2.90 10*3/uL Low 3.70-11.00 [facility] Comment on above: Order Comment: Speci men Type: BLOOD SPECIMENOrdering Facility: [facility] Address: [address] [place] [address] Performed By: #### 5 7021-8 ####[facility] LABIA [id number] [address] [address] [place] Comprehensive metabolic 2000 panelon 07-22-2024 Albumin [Mass/Vol] 4.0 g/dL Normal 3.9-4.9 [facility] Comment on above: Order Comment: Speci men Type: BLOOD SPECIMENOrdering Facility: [facility] Address: [address] [place] [address] Performed By: #### 2 4323-8, 02168-3, 3051-0, 3024-7 ####[facility] [id number] [place] [address] [place] ALP [Catalytic activity/Vol] 65 U/L Normal 34-123 [facility] Comment on above: Order Comment: Speci men Type: BLOOD SPECIMENOrdering Facility: [facility] Address: [address] [place] [address] Performed By: #### 2 4323-8, 33660-3, 305-0, 3024-7 ####[facility] [id number] [place] [id number] [place] ALT [Catalytic activity/Vol] 14 U/L Normal 7-38 [facility] Comment on above: Order Comment: Speci men Type: BLOOD SPECIMENOrdering Facility: [facility] Address: [address] [place] [address] Performed By: #### 2 4323-8, 97683-3, 3051-0, 3024-7 ####[facility] [id number] [place] [id number] [place] Anion gap [Moles/Vol] 10 mmol/L Normal 8-15 [facility] Comment on above: Order Comment: Speci men Type: BLOOD SPECIMENOrdering Facility: [facility] Address: [address] [place] [address] Performed By: #### 2 4323-8, 24018-8, 3051-0, 7 ####[facility] LABCLIA [id number] [address] [address] [place] AST [Catalytic activity/Vol] 22 U/L Normal 13-35 [facility] Comment on above: Order Comment: Speci men Type: BLOOD SPECIMENOrdering Facility: [facility] Address: [address] [place] [address] Performed By: #### 2 4323-8, 49678-1, 305-0, 7 ####[facility] LABIA [id number] [place] [id number] [place] Bilirubin [Mass/Vol] 0.2 mg/dL Normal 0.2-1.3 [facility] Comment on above: Order Comment: Speci men Type: BLOOD SPECIMENOrdering Facility: [facility] Address: [address] [place] [address] Performed By: #### 2 4323-8, 62435-7, 305-0, 3024-05 ####[facility] LABIA [id number] [place] [id number] [place] Calcium [Mass/Vol] 8.9 mg/dL Normal 8.5-10.2 [facility] Comment on above: Order Comment: Speci men Type: BLOOD SPECIMENOrdering Facility: [facility] Address: [address] [place], [place] [address] Performed By: #### 2 4323-8, 35743-9, 305-0, 7 ####[facility] LABIA [id number] [place] [id number] [place] Chloride [Moles/Vol] 105 mmol/L Normal 98-107 [facility] Comment on above: Order Comment: Speci men Type: BLOOD SPECIMENOrdering Facility: [facility] Address: [address] [place] [address] Performed By: #### 2 4323-8, 71084-5, 305-0, 3024-05 ####[facility] LABCLIA [id number] [place] [id number] [place] CO2 [Moles/Vol] 25 mmol/L Normal 22-30 [facility] Comment on above: Order Comment: Speci men Type: BLOOD SPECIMENOrdering Facility: [facility] Address: [address] [place] [address] Performed By: #### 2 4323-8, 36201-0, 305-0, 3024-05 ####[facility] LABIA [id number] [place] [address] [place] Creatinine [Mass/Vol] 0.69 mg/dL Normal 0.58-0.96 [facility] Comment on above: Order Comment: Speci men Type: BLOOD SPECIMENOrdering Facility: [facility] Address: [address] [place] [address] Performed By: #### 2 4323-8, 46392-9, 0, 3024-05 ####[facility] LABIA [id number] [place] [address] [place] Creatinine and Glomerular filtration rate.predicted panel (S/P/Bld) 107 mL/min/1.73m??? Normal >=60 [facility] Comment on above: Order Comment: Speci men Type: BLOOD SPECIMENOrdering Facility: [facility] Address: [address] [place] [address] Result Comment: Renata mated Glomerular Filtration Rate (eGFR) is calculated using the 2020 CKD-EPI creatinine equation. This equation utilizes serum creatinine, sex, and age as parameters. The creatinine assay has traceable calibration to isotope dilution-mass spectrometry. Refer to KDIGO guidelines for clinical interpretation. In patients with unstable renal function, e.g. those with acute kidney injury, the eGFR may not accurately reflect actual GFR. Performed By: #### 2 4323-8, 23340-5, 305-0, 7 ####[facility] LABCLIA [id number] [place] [id number] [place] Glucose [Mass/Vol] 93 mg/dL Normal 74-99 [facility] Comment on above: Order Comment: Speci men Type: BLOOD SPECIMENOrdering Facility: [facility] Address: [address] [place] [address] Result Comment: The [place] Diabetes Association (ADA) provides guidance for cutoff values for fasting glucose and random glucose. The ADA defines fasting as no caloric intake for at least 8 hours. Fasting plasma glucose results between 100 to 125 mg/dL indicate increased risk for diabetes (prediabetes). Fasting plasma glucose results greater than or equal to 126 mg/dL meet the criteria for diagnosis of diabetes. In the absence of unequivocal hyperglycemia, results should be confirmed by repeat testing. In a patient with classic symptoms of hyperglycemia or hyperglycemic crisis, random plasma glucose results greater than or equal to 200 mg/dL meet the criteria for diagnosis of diabetes. Reference: Standards of Medical Care in Diabetes 2016, [place] Diabetes Association. Diabetes Care. 2016.39(Suppl 1). Performed By: #### 2 4323-8, 71490-6, 3051-0, 3024-7 ####[facility] LABCLIA [id number] [place] [address] [place] Potassium [Moles/Vol] 4.5 mmol/L Normal 3.7-5.1 [facility] Comment on above: Order Comment: Speci men Type: BLOOD SPECIMENOrdering Facility: [facility] Address: [address] [place] [address] Performed By: #### 2 4323-8, 48657-9, 3051-0, 3024-7 ####[facility] LABCLIA [id number] [place] [address] [place] Protein [Mass/Vol] 6.7 g/dL Normal 6.3-8.0 [facility] Comment on above: Order Comment: Speci men Type: BLOOD SPECIMENOrdering Facility: [facility] Address: [address] [place] [address] Performed By: #### 2 4323-8, 37446-4, 305-0, 3024-05 ####[facility] LABCLIA [id number] [address] [address] [place] Sodium [Moles/Vol] 140 mmol/L Normal 136-144 [facility] Comment on above: Order Comment: Speci men Type: BLOOD SPECIMENOrdering Facility: [facility] Address: [address] [place] [address] Performed By: #### 2 4323-8, 49282-2, 305-0, 3024-05 ####[facility] LABCLIA [id number] [address] [address] [place] Urea nitrogen [Mass/Vol] 10 mg/dL Normal 7-21 [facility] Comment on above: Order Comment: Speci men Type: BLOOD SPECIMENOrdering Facility: [facility] Address: [address] [place] [address] Performed By: #### 2 4323-8, 21815-1, 305-0, 3024-05 ####[facility] LABCLIA [id number] [address] [address] [place] Lipid 1996 panelon 4 Cholesterol [Mass/Vol] 201 mg/dL High <200 [facility] Comment on above: Order Comment: Speci men Type: BLOOD SPECIMENOrdering Facility: [facility] Address: [address] [place] [address] Result Comment: <200 mg/dL, Desirable 200-239 mg/dL, Borderline high >239 mg/dL, High Performed By: #### 2 4323-8, 89674-7, 305-0, 3024-05 ####[facility] LABCLIA [id number] [address] [address] [place] Cholesterol in HDL [Mass/Vol] 47 mg/dL Normal >39 [facility] Comment on above: Order Comment: Speci men Type: BLOOD SPECIMENOrdering Facility: [facility] Address: [address] [place] [address] Result Comment: 40-5 9 mg/dL, Acceptable >59 mg/dL, High: Negative risk factor for coronary heart disease <40 mg/dL, Low: Positive risk factor for coronary heart disease Performed By: #### 2 4323-8, 03158-7, 3051-0, 3024-05 ####[facility] LABCLIA [id number] [facility] [place] [id number] [place] Cholesterol in LDL [Mass/Vol] 133 mg/dL High <100 [facility] Comment on above: Order Comment: Speci men Type: BLOOD SPECIMENOrdering Facility: [facility] Address: [address] [place] [address] Result Comment: <100 mg/dL, Optimal 100-129 mg/dL, Near optimal/above optimal 130-159 mg/dL, Borderline high 160-189 mg/dL, High >189 mg/dL, Very high Secondary prevention optimal LDL Cholesterol levels are recommended to be < 70 mg/dL Performed By: #### 2 4323-8, 30632-2, 305-0, 3024-05 ####[facility] LABCLIA [id number] [facility] [place] [address] [place] Cholesterol in LDL/Cholesterol in HDL [Mass ratio] 2.83 {ratio} High <2.54 [facility] Comment on above: Order Comment: Speci men Type: BLOOD SPECIMENOrdering Facility: [facility] Address: [address] [place] [address] Result Comment: Refleora allence: 1. National Cholesterol Education Program ATP III Guideline At-A-Glance Quick Desk Reference: National Heart, Lung, and Blood [place]. National Institutes of Health. 2001: NIH Publication No. 01-3305. 2. An International Atherosclerosis Society position paper: global recommendations for the management of dyslipidemia: executive summary, Atherosclerosis. 2014: 232(2):410-413. Performed By: #### 2 4323-8, 91898-6, 3051-0, 7 ####[facility] LABCLIA [id number] [address] [address] [place] Cholesterol in VLDL [Mass/Vol] 21 mg/dL Normal <30 [facility] Comment on above: Order Comment: Speci men Type: BLOOD SPECIMENOrdering Facility: [facility] Address: [address] [place], [place] [address] Performed By: #### 2 4323-8, 04125-5, 3051-0, 302-7 ####[facility] LABCLIA [id number] [address] [address] [place] Cholesterol non HDL [Mass/Vol] 154 mg/dL High <130 [facility] Comment on above: Order Comment: Speci men Type: BLOOD SPECIMENOrdering Facility: [facility] Address: [address] [place] [address] Result Comment: <130 mg/dL, Optimal 130-159 mg/dL, Near optimal/above optimal 160-189 mg/dL, Borderline high 190-219 mg/dL, High >219 mg/dL, Very high Secondary prevention optimal non HDL Cholesterol levels are recommended to be <100 mg/dL Performed By: #### 2 4323-8, 14223-8, 305-0, 3027 ####[facility] LABCLIA [id number] [address] [address] [place] Cholesterol.total/C holesterol in HDL [Mass ratio] 4.28 {ratio} Normal <5.10 [facility] Comment on above: Order Comment: Speci men Type: BLOOD SPECIMENOrdering Facility: [facility] Address: [address] [place] [address] Performed By: #### 2 4323-8, 28645-4, 305-0, 3027 ####[facility] LABCLIA [id number] [address] [address] [place] FASTING TIME 12 hrs Normal [facility] Comment on above: Order Comment: Speci men Type: BLOOD SPECIMENOrdering Facility: [facility] Address: [address] [place] [address] Performed By: #### 2 4323-8, 72944-3, 305-0, 7 ####[facility] LABCLIA [id number] [place] [address] [place] Triglyceride [Mass/Vol] 103 mg/dL Normal <150 [facility] Comment on above: Order Comment: Speci men Type: BLOOD SPECIMENOrdering Facility: [facility] Address: [address] [place] [address] Result Comment: <150 mg/dL, Normal 150-199 mg/dL, Borderline high 200-499 mg/dL, High >499 mg/dL, Very high Performed By: #### 2 4323-8, 02782-8, 3050, 3024-05 ####[facility] LABCLIA [id number] [place] [address] [place] T3Free SerPl-mCncon 07-22-20 24 Free T3 [Mass/Vol] 2.7 pg/mL Normal 2.3-4.1 [facility] Comment on above: Order Comment: Speci men Type: BLOOD SPECIMENOrdering Facility: [facility] Address: [address] [place] [address] Performed By: #### 2 4323-8, 91936-8, 305-0, 3024-05 ####[facility] LABCLIA [id number] [place] [address] [place] T4 Free SerPl-mCncon 024 Free T4 [Mass/Vol] 1.0 ng/dL Normal 0.9-1.7 [facility] Comment on above: Order Comment: Speci men Type: BLOOD SPECIMENOrdering Facility: [facility] Address: [address] [place] [address] Performed By: #### 2 4323-8, 34716-1, 305-0, 7 ####[facility] LABCLIA [id number] [place] [address] [place] TSH SerPl-aCncon 07-22-2024 TSH Qn 2.090 m[IU]/L Normal 0.270-4.200 [facility] Comment on above: Order Comment: Speci men Type: BLOOD SPECIMENOrdering Facility: [facility] Address: [address] [place] [address] Result Comment: If t he patient is , TSH reference range varies by gestational period: First Trimester (weeks 9-12): 0.180-2.990 mIU/L Second Trimester: 0.110-3.980 mIU/L Third Trimester: 0.480-4.710 mIU/L Kale Greene et al. A Practical Approach for the Verifications and Determination of Site- and Trimester-Specific Reference Intervals for Thyroid Function tests in . Thyroid, 2019:29:3:412-420. Beka Durand, et al. 2017 Guidelines of the [place] Thyroid Association for the Diagnosis and Management of Thyroid Disease during and the . Thyroid, 2017:27:3:315-389. Performed By: #### 3 016-3 ####[facility] LABCLIA [id number] [place] [address] [place] US TRANSVAGINAL NON OBon US TRANSVAGINAL NON OB ORIGINAL EXAMINATION: TRANSVAGINAL PELVIC ULTRASOUND03/20/2024 4:20 pm Ultrasound Pelvis: Transabdominal and transvaginal study COMPARISON: None HISTORY: ORDERING SYSTEM PROVIDED HISTORY: Reason for Exam: abnormal uterine bleeding, FINDINGS: The uterus is 12.5 x 3.7 x 7.2 cms. . No myometrial mass lesion is seen. The endometrial double wall thickness is measured transvaginally 4 mm double wall thickness which is normal for age. Right ovary: 2.1 x 1.5 x 2.0 cm. Left ovary: 3.1 x 2.0 x 2.8 cm. There is a 1.9 cm follicle in the left ovary.. No concerning ovarian cyst or mass is seen. There is blood flow to both ovaries. No pelvic or adnexal masses or significant free fluid is seen. IMPRESSION: Normal pelvic ultrasound. Interpreted by: Gera Lopez MD Preliminary Report By: Gera Lopez MD Electronically signed By Gera Lopez MD Dictated Date: 03/22/2024 3:18:24 PM Prelim Date: 03/22/2024 3:20:09 PM Sign Date: 03/22/2024 3:20:09 PM Ordering Provider: ELAYNE Markham [facility] ([place]) .Auto Diffon 03-20-2024 Basophil, Absolute 0.0 10 3/mcL Normal 0.0-0.2 [facility] ([place]) Comment on above: Performed By: #### A SANDRA, CBC, ADIFF, TSH, CMP, GFR #### [address] [address] Basophils/100 WBC (Bld) 0.8 % Normal 0.0-2.5 [facility] ([place]) Comment on above: Performed By: #### A SANDRA, CBC, ADIFF, TSH, CMP, GFR #### [address] [address] Eosinophil, Absolute 0.1 10 3/mcL Normal 0.0-0.4 [facility] ([place]) Comment on above: Performed By: #### A SANDRA, CBC, ADIFF, TSH, CMP, GFR #### [address] [address] Eosinophils/100 WBC (Bld) 1.6 % Normal 0.0-7.0 [facility] ([place] Comment on above: Performed By: #### A SANDRA, CBC, ADIFF, TSH, CMP, GFR #### [address] [address] Lymphocyte, Absolute 0.5 10 3/mcL Low 0.8-3.9 [facility] ([place] Comment on above: Performed By: #### A SANDRA, CBC, ADIFF, TSH, CMP, GFR #### [address] [address] Lymphocytes/100 WBC (Bld) 15.7 % Normal 10.0-50.0 [facility] ([place] Comment on above: Performed By: #### A SANDRA, CBC, ADIFF, TSH, CMP, GFR #### [address] [address] Monocyte, Absolute 0.5 10 3/mcL Normal 0.2-1.0 [facility] ([place] Comment on above: Performed By: #### A SANDRA, CBC, ADIFF, TSH, CMP, GFR #### [address] [address] Monocytes/100 WBC (Bld) 16.4 % High 1.7-13.0 [facility] ([place]) Comment on above: Performed By: #### A SANDRA, CBC, ADIFF, TSH, CMP, GFR #### [address] [address] Neutrophils/100 WBC (Bld) 65.5 % Normal 37.0-80.0 [facility] ([place] Comment on above: Performed By: #### A SANDRA, CBC, ADIFF, TSH, CMP, GFR #### [address] [address] .GFRon 03-20-2024 GFR 113 ml/min/1.73sqm Normal [facility] ([place]) Comment on above: Result Comment: GFR Population mean for , Non- Americans Ages 20-29 = 116 mL/min/1.73 sq.m. Ages 30-39 = 107 mL/min/1.73 sq.m. Ages 40-49 = 99 mL/min/1.73 sq.m. Ages 50-59 = 93 mL/min/1.73 sq.m. Ages 60-69 = 85 mL/min/1.73 sq.m. Ages 70+ = 75 mL/min/1.73 sq.m. Chronic Kidney Disease: Less than 60 mL/min/1.73 square meters End Stage Renal Disease: Less than 15 mL/min/1.73 square meters Performed By: #### A SANDRA, CBC, ADIFF, TSH, CMP, GFR #### [address] [address] GFR Non- 94 ml/min/1.73sqm Normal [facility] ([place]) Comment on above: Result Comment: GFR Population mean for , Non- Americans Ages 20-29 = 116 mL/min/1.73 sq.m. Ages 30-39 = 107 mL/min/1.73 sq.m. Ages 40-49 = 99 mL/min/1.73 sq.m. Ages 50-59 = 93 mL/min/1.73 sq.m. Ages 60-69 = 85 mL/min/1.73 sq.m. Ages 70+ = 75 mL/min/1.73 sq.m. Chronic Kidney Disease: Less than 60 mL/min/1.73 square meters End Stage Renal Disease: Less than 15 mL/min/1.73 square meters Performed By: #### A SANDRA, CBC, ADIFF, TSH, CMP, GFR #### [address] [address] .NEUABSon 03-20-2024 Neutrophil, Absolute 2.2 10 3/mcL Low 2.9-6.2 [facility] ([place] Comment on above: Performed By: #### A SANDRA, CBC, ADIFF, TSH, CMP, GFR #### [address] [address] CBCon 03-20-2024 Erythrocyte distribution width (RBC) [Ratio] 12.9 % Normal 11.5-14.5 [facility] ([place] Comment on above: Performed By: #### A SANDRA, CBC, ADIFF, TSH, CMP, GFR #### [address] [address] Hematocrit (Bld) [Volume fraction] 37.7 % Normal 37.0-47.0 [facility] ([place] Comment on above: Performed By: #### A SANDRA, CBC, ADIFF, TSH, CMP, GFR #### [address] [address] Hgb 13.2 G/dL Normal 12.0-16.0 [facility] ([place] Comment on above: Performed By: #### A SANDRA, CBC, ADIFF, TSH, CMP, GFR #### [address] [address] MCH (RBC) [Entitic mass] 31.6 pg High 27.0-31.2 [facility] ([place] Comment on above: Performed By: #### A SANDRA, CBC, ADIFF, TSH, CMP, GFR #### [address] [address] MCHC 35.1 G/dL Normal 33.0-37.0 [facility] ([place] Comment on above: Performed By: #### A SANDRA, CBC, ADIFF, TSH, CMP, GFR #### [address] [address] MCV (RBC) [Entitic vol] 90.0 fL Normal 80.0-94.0 [facility] ([place] Comment on above: Performed By: #### A SANDRA, CBC, ADIFF, TSH, CMP, GFR #### [address] [address] Platelet 264 10 3/mcL Normal 130-400 [facility] ([place] Comment on above: Performed By: #### A SANDRA, CBC, ADIFF, TSH, CMP, GFR #### [address] [address] Platelet mean volume (Bld) [Entitic vol] 7.6 fL Normal 7.4-10.4 [facility] ([place] Comment on above: Performed By: #### A SANDRA, CBC, ADIFF, TSH, CMP, GFR #### [address] [address] RBC 4.18 10 6/mcL Low 4.20-5.40 [facility] ([place] Comment on above: Performed By: #### A SANDRA, CBC, ADIFF, TSH, CMP, GFR #### [address] [address] WBC 3.3 10 3/mcL Low 4.6-10.8 [facility] ([place] Comment on above: Performed By: #### A SANDRA, CBC, ADIFF, TSH, CMP, GFR #### [address] [address] CMPon 03-20-2024 Albumin Level 3.8 G/dL Normal 3.5-5.0 [facility] ([place] Comment on above: Performed By: #### A SANDRA, CBC, ADIFF, TSH, CMP, GFR #### [address] [address] Albumin/Globulin [Mass ratio] 1.3 {ratio} Normal 1.1-2.5 [facility] ([place] Comment on above: Performed By: #### A SANDRA, CBC, ADIFF, TSH, CMP, GFR #### [address] [address] ALP [Catalytic activity/Vol] 76 U/L Normal 40-135 [facility] ([place] Comment on above: Performed By: #### A SANDRA, CBC, ADIFF, TSH, CMP, GFR #### [address] [address] ALT [Catalytic activity/Vol] 23 U/L Normal 14-59 [facility] ([place] Comment on above: Performed By: #### A SANDRA, CBC, ADIFF, TSH, CMP, GFR #### [address] [address] AST [Catalytic activity/Vol] 20 U/L Normal 10-40 [facility] ([place] Comment on above: Performed By: #### A SANDRA, CBC, ADIFF, TSH, CMP, GFR #### [address] [address] Bili Total 0.2 mg/dL Normal 0.2-1.0 [facility] ([place]) Comment on above: Result Comment: Use of this assay is not recommended for patients undergoing treatment with eltrombopag due to the potential for falsely elevated results. Performed By: #### A SANDRA, CBC, ADIFF, TSH, CMP, GFR #### [address] [address] BUN/Creatinine Ratio 16 ratio Normal 7-27 [facility] ([place] Comment on above: Performed By: #### A SANDRA, CBC, ADIFF, TSH, CMP, GFR #### [address] [address] Calcium [Mass/Vol] 9.0 mg/dL Normal 8.4-10.2 [facility] ([place]) Comment on above: Performed By: #### A SANDRA, CBC, ADIFF, TSH, CMP, GFR #### [address] [address] Chloride [Moles/Vol] 104 mmol/L Normal 98-107 [facility] ([place] Comment on above: Performed By: #### A SANDRA, CBC, ADIFF, TSH, CMP, GFR #### [address] [address] CO2 [Moles/Vol] 29 mmol/L Normal 22-29 [facility] ([place] Comment on above: Performed By: #### A SANDRA, CBC, ADIFF, TSH, CMP, GFR #### [address] [address] Creatinine [Mass/Vol] 0.67 mg/dL Normal 0.55-1.02 [facility] ([place] Comment on above: Performed By: #### A SANDRA, CBC, ADIFF, TSH, CMP, GFR #### [address] [address] Electrolyte Balance 7.0 mEq/L Normal 4.0-15.0 [facility] ([place]) Comment on above: Performed By: #### A SANDRA, CBC, ADIFF, TSH, CMP, GFR #### [address] [address] Globulin 3.0 G/dL Normal [facility] ([place] Comment on above: Performed By: #### A SANDRA, CBC, ADIFF, TSH, CMP, GFR #### [address] [address] Glucose [Mass/Vol] 90 mg/dL Normal 70-105 [facility] ([place]) Comment on above: Performed By: #### A SANDRA, CBC, ADIFF, TSH, CMP, GFR #### [address] [address] Potassium [Moles/Vol] 4.2 mmol/L Normal 3.5-5.1 [facility] ([place] Comment on above: Performed By: #### A SANDRA, CBC, ADIFF, TSH, CMP, GFR #### [address] [address] Sodium [Moles/Vol] 140 mmol/L Normal 136-145 [facility] ([place] Comment on above: Performed By: #### A SANDRA, CBC, ADIFF, TSH, CMP, GFR #### [address] [address] Total Protein 6.8 G/dL Normal 6.4-8.2 [facility] ([place] Comment on above: Performed By: #### A SANDRA, CBC, ADIFF, TSH, CMP, GFR #### [address] [address] Urea nitrogen [Mass/Vol] 11 mg/dL Normal 7-18 [facility] ([place] Comment on above: Performed By: #### A SANDRA, CBC, ADIFF, TSH, CMP, GFR #### [address] [address] LABORATORYOrdered By: SYSTEM SYSTEM on 03-20-2024 Albumin BCP dye [Mass/Vol] 3.8 G/dL Normal 3.5 - 5.0 G/dL AO ADM SS Albumin/Globulin [Mass ratio] 1.3 {ratio} Normal 1.1 - 2.5 ratio AO ADM SS ALP [Catalytic activity/Vol] 76 U/L Normal 40 - 135 U/L AO ADM SS ALT With P-5'-P [Catalytic activity/Vol] 23 U/L Normal 14 - 59 U/L AO ADM SS AST With P-5'-P [Catalytic activity/Vol] 20 U/L Normal 10 - 40 U/L AO ADM SS Basophil, Absolute 0.0 103/mcL Normal 0.0 - 0.2 10^3/mcL AO Workflow SS Basophils/100 WBC (Bld) 0.8 % Normal 0.0 - 2.5 % AO Workflow SS Bilirubin [Mass/Vol] 0.2 mg/dL Normal 0.2 - 1.0 mg/dL AO ADM SS Comment on above: Interpretive Data: U se of this assay is not recommended for patients undergoing treatment with eltrombopag due to the potential for falsely elevated results. Calcium [Mass/Vol] 9.0 mg/dL Normal 8.4 - 10. 2 mg/dL AO ADM SS Chloride [Moles/Vol] 104 mmol/L Normal 98 - 107 mmol/L AO ADM SS CO2 [Moles/Vol] 29 mmol/L Normal 22 - 29 mmol/L AO ADM SS Creatinine [Mass/Vol] 0.67 mg/dL Normal 0.55 - 1.02 mg/dL AO ADM SS Electrolyte Balance 7.0 mEq/L Normal 4.0 - 15 .0 mEq/L AO ADM SS Eosinophil, Absolute 0.1 103/mcL Normal 0.0 - 0.4 10^3/mcL AO Workflow SS Eosinophils/100 WBC (Bld) 1.6 % Normal 0.0 - 7.0 % AO Workflow SS Erythrocyte distribution width (RBC) [Ratio] 12.9 % Normal 11.5 - 14.5 % AO Workflow SS GFR/1.73 sq M.predicted among blacks MDRD (S/P/Bld) [Vol rate/Area] 113 ml/min/1.73sqm Invalid Interpretation Code AO Chemistry S Comment on above: Interpretive Data: GFR Population mean for , Non- Americans Ages 20-29 = 116 mL/min/1.73 sq.m. Ages 30-39 = 107 mL/min/1.73 sq.m. Ages 40-49 = 99 mL/min/1.73 sq.m. Ages 50-59 = 93 mL/min/1.73 sq.m. Ages 60-69 = 85 mL/min/1.73 sq.m. Ages 70+ = 75 mL/min/1.73 sq.m. Chronic Kidney Disease: Less than 60 mL/min/1.73 square meters End Stage Renal Disease: Less than 15 mL/min/1.73 square meters GFR/1.73 sq M.predicted among non-blacks MDRD (S/P/Bld) [Vol rate/Area] 94 ml/min/1.73sqm Invalid Interpretation Code AO Chemistry S Comment on above: Interpretive Data: GFR Population mean for , Non- Americans Ages 20-29 = 116 mL/min/1.73 sq.m. Ages 30-39 = 107 mL/min/1.73 sq.m. Ages 40-49 = 99 mL/min/1.73 sq.m. Ages 50-59 = 93 mL/min/1.73 sq.m. Ages 60-69 = 85 mL/min/1.73 sq.m. Ages 70+ = 75 mL/min/1.73 sq.m. Chronic Kidney Disease: Less than 60 mL/min/1.73 square meters End Stage Renal Disease: Less than 15 mL/min/1.73 square meters Globulin 3.0 G/dL Invalid Interpretation Code AO ADM SS Glucose [Mass/Vol] 90 mg/dL Normal 70 - 105 mg/dL AO ADM SS Hematocrit (Bld) [Volume fraction] 37.7 % Normal 37.0 - 47.0 % AO Workflow SS Hemoglobin (Bld) [Mass/Vol] 13.2 G/dL Normal 12.0 - 16.0 G/dL AO Workflow SS Lymphocyte, Absolute 0.5 103/mcL Low 0.8 - 3.9 10^3/mcL AO Workflow SS Lymphocytes/100 WBC (Bld) 15.7 % Normal 10.0 - 50.0 % AO Workflow SS MCH (RBC) [Entitic mass] 31.6 pg High 27.0 - 31.2 pg AO Workflow SS MCHC 35.1 G/dL Normal 33.0 - 37.0 G/dL AO Workflow SS MCV (RBC) [Entitic vol] 90.0 fL Normal 80.0 - 94.0 fL AO Workflow SS Monocyte, Absolute 0.5 103/mcL Normal 0.2 - 1.0 10^3/mcL AO Workflow SS Monocytes/100 WBC (Bld) 16.4 % High 1.7 - 13.0 % AO Workflow SS Neutrophil, Absolute 2.2 103/mcL Low 2.9 - 6.2 10^3/mcL AO Workflow SS Neutrophils/100 WBC (Bld) 65.5 % Normal 37.0 - 80.0 % AO Workflow SS Platelet mean volume (Bld) [Entitic vol] 7.6 fL Normal 7.4 - 10.4 fL AO Workflow SS Platelets (Bld) [#/Vol] 264 103/mcL Normal 130 - 400 10^3/mcL AO Workflow SS Potassium [Moles/Vol] 4.2 mmol/L Normal 3.5 - 5.1 mmol/L AO ADM SS Protein [Mass/Vol] 6.8 G/dL Normal 6.4 - 8.2 G/dL AO ADM SS RBC (Bld) [#/Vol] 4.18 106/mcL Low 4.20 - 5.4 0 10^6/mcL AO Workflow SS Sodium [Moles/Vol] 140 mmol/L Normal 136 - 145 mmol/L AO ADM SS TSH Qn 1.55 m[IU]/L Normal 0.36 - 3.74 mcIU/mL AO ADM SS Urea nitrogen [Mass/Vol] 11 mg/dL Normal 7 - 18 mg/dL AO ADM SS Urea nitrogen/Creatinine [Mass ratio] 16 ratio Normal 7 - 27 ratio AO ADM SS WBC (Bld) [#/Vol] 3.3 103/mcL Low 4.6 - 10.8 10^3/mcL AO Workflow SS TSHon 03-20-2024 TSH Qn 1.55 m[IU]/L Normal 0.36-3.74 [facility] ([place]) Comment on above: Performed By: #### A SANDRA, CBC, ADIFF, TSH, CMP, GFR #### [address] [place], [place] [address] STREP A MOLECULAR (POC)on Procedural Control Valid [facility] Strep A (POCT) Negative Negative [facility] No Panel Informationon 09-28 [facility] EMERGENCY REPORTon 2 EMERGENCY REPORT [facility] EMERGENCY ROOM REPORT NAME ACCOUNT SEX AGE ADMIT DISCHARGE PT MED. RECORD# NUMBER DATE DATE TYPE BRIANNA, [id number] F 47 09/19/22 09/19/22 3 KATE [id number] ROOM: ER DATE OF : 1975 DICTATING PHYSICIAN: Frandy Benson HISTORY OF PRESENT ILLNESS: The patient came in and said she was feeling dizzy. She has a history of vertigo in the past, which she has been worked up for. She said the last time she had anything severe was 3 years ago. She has had an MRI at that time and a work-up by Neurology. She has an appointment in October with Neurology. She said today she just felt off balance. She had nausea and vomiting whenever she would move her head. It felt like her typical vertigo that she has had in the past. PAST MEDICAL HISTORY: She does have some anxiety and also vertigo. PAST SURGICAL HISTORY: Cholecystectomy, , bladder sling, and colonoscopy. SOCIAL HISTORY: She does not smoke or drink. She is here with her , who appears very caring and loving toward her. REVIEW OF SYSTEMS: Ten systems were reviewed and were negative except as mentioned above. PHYSICAL EXAMINATION: GENERAL: She is an awake, alert and oriented female who came in by ambulance and did appear uncomfortable. She had nausea and vomiting when she came in, especially with movement. HEENT: She has horizontal nystagmus. Pupils are equal, round, and reactive to light. Nares are patent. Throat has adequate oral moisture. Uvula is midline. NECK: Neck is supple without petechiae or rash. HEART: Heart rate is regular without murmur. S1 is equal to S2. No S3 or S4 appreciated. LUNGS: Lungs are clear to auscultation bilaterally. No rales, rhonchi or retractions. ABDOMEN: Abdomen is soft, nontender and nondistended. SKIN: Skin is warm and dry. NEUROLOGIC: The patient had a negative test of skew. EMERGENCY DEPARTMENT COURSE AND TREATMENT: She was given fluids, Ativan and meclizine. She feels much better at this time. I do not believe this is a cerebellar infarct. I believe this is more of a peripheral lesion. She was told not to drive and return if any problems or concerns. We will write her off work for tomorrow also. We will place her on Antivert. DIAGNOSIS: Vertigo - improved. Page 1 of 2 [facility] Emergency Room Report [facility] : 1975 Dictated By: Frandy Benson DO 09/19/22 20:09 JOB #: [id number] Transcribed By: alejandra 09/20/22 07:45 Electronically signed by: NICKY Benson DO 09/20/22 18:09 Page 2 of 2 [facility] Emergency Room Report Normal [facility] Laboratory - Chemistry and C hemistry - challengeon 09-14-2022 HCG ( test) Ql (U) Negative [facility] Work Phone: Comment on above: Very dilute urine sp ecimens, as indicated by a low specificgravity, may not contain sales representative uniforms levels of hCG. If is still suspected, a first morning urinespecimen should be collected 48 hours later and tested. No Panel Informationon 08-02 Culture Urine 50,000 - 100,000 cfu /ml Mixed growth consistent with normal urogenital demian. [facility] Work Phone: UA DIP, URINE (POC)on 2021 BILIRUBIN UA (POCT) Negative Negative [facility] CLARITY UA (POCT) Clear [facility] COLOR UA (POCT) Yellow [facility] GLUCOSE UA (POCT) Negative Negative mg/dL [facility] HEMOGLOBIN/BLOOD UA (POCT) Trace-lysed Abnormal Negative [facility] KETONE UA (POCT) Negative Negative mg/dL [facility] LEUKOCYTES UA (POCT) Trace Abnormal Negative [facility] NITRITE UA (POCT) Negative Negative [facility] PH UA (POCT) 7.0 4.5 - 8.0 [facility] Protein Ql (U) Negative Negative mg/dL [facility] SPECIFIC GRAVITY UA (POCT) 1.015 1.005 - 1.030 [facility] UROBILINOGEN UA (POCT) 0.2 E.U./dL Normal E.U./dL [facility] LABORATORYOrdered By: Shailesh Renee on 05-02-2022 Appearance (U) Clear (05/02/22 4:40 PM) Invalid Interpretation Code Clear AO Auto Urine SS Bilirubin Ql (U) Negative (05/02/22 4:40 PM) Invalid Interpretation Code Negative AO Auto Urine SS Color (U) Yellow (05/02/22 4:40 PM) Invalid Interpretation Code AO Auto Urine SS Glucose Test strip (U) [Mass/Vol] Negative Invalid Interpretation Code Negativemg/ dL AO Auto Urine SS HCG ( test) Ql Negative (05/02/22 4:40 PM) Invalid Interpretation Code AO Manual Urine SS Hemoglobin Auto test strip (U) [Mass/Vol] Trace *ABN* (05/02/22 4:40 PM) Invalid Interpretation Code Negative AO Auto Urine SS Ketones Ql (U) Negative Invalid Interpretation Code Negativemg/ dL AO Auto Urine SS test (u) int Not detected Invalid Interpretation Code AO Manual Urine SS UA Leuk Est Trace *ABN* (05/02/22 4:40 PM) Invalid Interpretation Code Negative AO Auto Urine SS UA Mucous 1+ /HPF Invalid Interpretation Code AO Auto Urine SS UA Nitrite Negative (05/02/22 4:40 PM) Invalid Interpretation Code Negative AO Auto Urine SS UA pH 7.0 (05/02/22 4:40 PM) Invalid Interpretation Code 5.0 - 8.0 AO Auto Urine SS UA Protein Negative Invalid Interpretation Code Negativemg/ dL AO Auto Urine SS UA RBC 0-5 /HPF Invalid Interpretation Code None Seen/HPF AO Auto Urine SS UA Spec Grav 1.025 (05/02/22 4:40 PM) Invalid Interpretation Code 1.015-1.025 AO Auto Urine SS UA Specimen Type Clean Catch (05/02/22 4:40 PM) Invalid Interpretation Code AO Auto Urine SS UA Squam Epithelial 5-10 /HPF Invalid Interpretation Code None Seen/HPF AO Auto Urine SS UA Urobilinogen 0.2 E.U./dL Invalid Interpretation Code 0.2-1.0E.U. /dL AO Auto Urine SS WBC LM.HPF (Urine sed) [#/Area] 0-5 /HPF Invalid Interpretation Code None Seen/HPF AO Auto Urine SS LABORATORYOrdered By: Jaclyn Paul on 05-02-2022 Basophil, Absolute 0.0 103/mcL Invalid Interpretation Code 0.0 - 0.2 10^3/mcL AO Workflow SS Basophils/100 WBC (Bld) 0.5 % Invalid Interpretation Code 0.0 - 2.5 % AO Workflow SS Eosinophil, Absolute 0.1 103/mcL Invalid Interpretation Code 0.0 - 0.4 10^3/mcL AO Workflow SS Eosinophils/100 WBC (Bld) 0.8 % Invalid Interpretation Code 0.0 - 7.0 % AO Workflow SS Erythrocyte distribution width (RBC) [Ratio] 12.6 % Invalid Interpretation Code 11.5 - 14.5 % AO Workflow SS Hematocrit (Bld) [Volume fraction] 39.1 % Invalid Interpretation Code 37.0 - 47.0 % AO Workflow SS Hgb 13.2 G/dL Invalid Interpretation Code 12.0 - 16.0 G/dL AO Workflow SS Lymphocyte, Absolute 0.8 103/mcL Invalid Interpretation Code 0.8 - 3.9 10^3/mcL AO Workflow SS Lymphocytes/100 WBC (Bld) 13.2 % Invalid Interpretation Code 10.0 - 50.0 % AO Workflow SS MCH (RBC) [Entitic mass] 31.1 pg Invalid Interpretation Code 27.0 - 31.2 pg AO Workflow SS MCHC 33.8 G/dL Invalid Interpretation Code 33.0 - 37.0 G/dL AO Workflow SS MCV (RBC) [Entitic vol] 91.8 fL Invalid Interpretation Code 80.0 - 94.0 fL AO Workflow SS Monocyte distribution width Auto (Bld) [Entitic vol] 15.04 Invalid Interpretation Code 0.00 - 20.00 AO Workflow SS Comment on above: Result Comment: For ED adult patients suspected of sepsis, MDW<=20.0 does not rule out sepsis or risk of sepsis Monocyte, Absolute 0.6 103/mcL Invalid Interpretation Code 0.2 - 1.0 10^3/mcL AO Workflow SS Monocytes/100 WBC (Bld) 9.1 % Invalid Interpretation Code 1.7 - 13.0 % AO Workflow SS Neutrophil, Absolute 4.9 103/mcL Invalid Interpretation Code 2.9 - 6.2 10^3/mcL AO Workflow SS Neutrophils/100 WBC (Bld) 76.4 % Invalid Interpretation Code 37.0 - 80.0 % AO Workflow SS Platelet 272 103/mcL Invalid Interpretation Code 130 - 400 10^3/mcL AO Workflow SS Platelet mean volume (Bld) [Entitic vol] 7.1 fL Invalid Interpretation Code 7.4 - 10.4 fL AO Workflow SS RBC 4.26 106/mcL Invalid Interpretation Code 4.20 - 5.40 10^6/mcL AO Workflow SS WBC 6.4 103/mcL Invalid Interpretation Code 4.6 - 10.8 10^3/mcL AO Workflow SS LABORATORYOrdered By: Raúl High on 05-02-2022 Calcium [Mass/Vol] 10.0 mg/dL Invalid Interpretation Code 8.4 - 10.2 mg/dL AO ADM SS Chloride [Moles/Vol] 105 mmol/L Invalid Interpretation Code 98 - 107 mmol/L AO ADM SS CO2 [Moles/Vol] 24 mmol/L Invalid Interpretation Code 22 - 29 mmol/L AO ADM SS Creatinine [Mass/Vol] 0.78 mg/dL Invalid Interpretation Code 0.55 - 1.02 mg/dL AO ADM SS Electrolyte Balance 10.0 mEq/L Invalid Interpretation Code 4.0 - 15.0 mEq/L AO ADM SS Fibrin D-dimer DDU (PPP) [Mass/Vol] 243 ng/mL D-DU Invalid Interpretation Code 0 - 230 ng/mL D-DU AO Coag SS Glucose [Mass/Vol] 95 mg/dL Invalid Interpretation Code 70 - 105 mg/dL AO ADM SS Potassium [Moles/Vol] 3.4 mmol/L Invalid Interpretation Code 3.5 - 5.1 mmol/L AO ADM SS Sodium [Moles/Vol] 139 mmol/L Invalid Interpretation Code 136 - 145 mmol/L AO ADM SS Troponin I.cardiac DL <= 0.01 ng/mL [Mass/Vol] ng/L Invalid Interpretation Code 0.0 - 51.4 ng/L AO ADM SS Urea nitrogen [Mass/Vol] 11 mg/dL Invalid Interpretation Code 7 - 18 mg/dL AO ADM SS Urea nitrogen/Creatinine [Mass ratio] 14 ratio Invalid Interpretation Code 7 - 27 ratio AO ADM SS LABORATORYOrdered By: SYSTEM SYSTEM on 05-02-2022 GFR 96 ml/min/1.73sqm Invalid Interpretation Code AO Chemistry S GFR Non- 79 ml/min/1.73sqm Invalid Interpretation Code AO Chemistry S XR Wrist - bilateral PA and Lateral and Obliqueon 11-24-2020 IMPRESSION: Unremarkable bilateral wrist radiographs with no fracture, osseous erosion, or focal soft tissue swelling. Cost Accounting Analyst: PSCB Transcribe Date/Time: Nov 24 2020 3:28P Dictated by : LALA ASKEW MD This examination was interpreted and the report reviewed and electronically signed by: LALA ASKEW MD on Nov 24 2020 3:30PM [facility] DIVISION OF RADIOLOGY * * *Final Report* * * DATE OF EXAM: Nov 24 2020 3:27PM WOX 5621 - XR WRIST 3V PA/LAT/OBL RAYMOND / PROCEDURE REASON: multiple diagnoses * * * * Physician Interpretation * * * * EXAMINATION: XR WRIST 3V PA/LAT/OBL RAYMOND HISTORY: Bilateral dorsal lumps on both wrists with the left being more prominant over the last 2 weeks without injury. Bilateral wrist pain Bilateral wrist pain Ganglion cyst of both wrists Ganglion cyst of both wrists. TECHNIQUE: XR WRIST 3V PA/LAT/OBL RAYMOND Laterality: BILATERAL Number of different views (projections): 3 M: XB_1 COMPARISON: None RESULT: There is no acute fracture or dislocation. There is no osseous erosion. Joint spaces are preserved. Scapholunate interval is preserved. No focal soft tissue swelling. DIVISION OF RADIOLOGY Provider, Liam Huddleston [facility] - 11/24/2020 * * *Final Report* * * DATE OF EXAM: Nov 24 2020 3:27PM WOX 5621 - XR WRIST 3V PA/LAT/OBL RAYMOND / PROCEDURE REASON: multiple diagnoses * * * * Physician Interpretation * * * * EXAMINATION: XR WRIST 3V PA/LAT/OBL RAYMOND HISTORY: Bilateral dorsal lumps on both wrists with the left being more prominant over the last 2 weeks without injury. Bilateral wrist pain Bilateral wrist pain Ganglion cyst of both wrists Ganglion cyst of both wrists. TECHNIQUE: XR WRIST 3V PA/LAT/OBL RAYMOND Laterality: BILATERAL Number of different views (projections): 3 M: XB_1 COMPARISON: None RESULT: There is no acute fracture or dislocation. There is no osseous erosion. Joint spaces are preserved. Scapholunate interval is preserved. No focal soft tissue swelling. IMPRESSION IMPRESSION: Unremarkable bilateral wrist radiographs with no fracture, osseous erosion, or focal soft tissue swelling. Cost Accounting Analyst: P[employer] Transcribe Date/Time: Nov 24 2020 3:28P Dictated by : LALA ASKEW MD This examination was interpreted and the report reviewed and electronically signed by: LALA ASKEW MD on Nov 24 2020 3:30PM EST [facility] Radiology Study observation (narrative) [facility] XR Wrist - bilateral PA and Lateral and ObliqueOrdered By: Ccf Provider on 11-24-2020 [facility] Vital Signs Date Time Vital Sign Value Performing Clinician Facility 07-14-2025 08:43-0400 Body mass index (BMI) [Ratio] 28.5 kg/m2 Amanda Ewing PA-C Work Phone: [facility] 07-14-2025 08:43-0400 Body weight 80.11 kg Amanda Ewing PA-C Work Phone: [facility] 07-14-2025 08:43-0400 Respiratory rate 16 /min Amanda OTERO-Kalpana Work Phone: [facility] 07-14-2025 08:43-0400 SaO2% (BldA) [Mass fraction] 97 % Amanda Ewing PA-C Work Phone: [facility] 04-13-2025 09:57-0400 Body height 167.6 cm Jovi Kiser CHECKER.INDUCTION COORDINATION ENGINEER Work Phone: [facility] 04-13-2025 09:57-0400 Body mass index (BMI) [Ratio] 29.5 kg/m2 Jovi Kiser CHECKER.INDUCTION COORDINATION ENGINEER Work Phone: [facility] 04-13-2025 09:57-0400 Body temperature 97.7 [degF] Jovi Kiser CHECKER.INDUCTION COORDINATION ENGINEER Work Phone: [facility] 04-13-2025 09:57-0400 Body weight 82.92 kg Jovi Kiser CHECKER.INDUCTION COORDINATION ENGINEER Work Phone: [facility] 04-13-2025 09:57-0400 Diastolic blood pressure 70 mm[Hg] Jovi Kiser CHECKER.[facility] Work Phone: [facility] 04-13-2025 09:57-0400 Heart rate 78 /min Jvoi Kiser CHECKER.INDUCTION COORDINATION ENGINEER Work Phone: [facility] 04-13-2025 09:57-0400 SaO2% (BldA) [Mass fraction] 99 % Jovi Kiser CHECKER.[facility] Work Phone: [facility] 04-13-2025 09:57-0400 Systolic blood pressure 124 mm[Hg] Jovi Kiser CHECKER.[facility] Work Phone: [facility] 04-05-2025 15:15-0400 Body mass index (BMI) [Ratio] 29.8 kg/m2 Carol Lebron MD Work Phone: [facility] 04-05-2025 15:15-0400 Body weight 83.73 kg Carol Lebron MD Work Phone: [facility] 04-05-2025 15:15-0400 Diastolic blood pressure 82 mm[Hg] Carol Lebron MD Work Phone: [facility] 04-05-2025 15:15-0400 Heart rate 89 /min Carol Lebron MD Work Phone: [facility] 04-05-2025 15:15-0400 Respiratory rate 16 /min Carol Lebron MD Work Phone: [facility] 04-05-2025 15:15-0400 SaO2% (BldA) [Mass fraction] 97 % Carol Lebron MD Work Phone: [facility] 04-05-2025 15:15-0400 Systolic blood pressure 138 mm[Hg] Carol Lebron MD Work Phone: [facility] 02-04-2025 15:51-0400 Body height 167.6 cm Lita cShultz MD Work Phone: [facility] 02-04-2025 15:51-0400 Body mass index (BMI) [Ratio] 29.7 kg/m2 Lita Schultz MD Work Phone: [facility] 02-04-2025 15:51-0400 Body weight 83.46 kg Lita Schultz MD Work Phone: [facility] 12-02-2024 11:16-0500 Body height 167.6 cm Ashlee Munoz MD Work Phone: [facility] 12-02-2024 11:16-0500 Body mass index (BMI) [Ratio] 27.75 kg/m2 Ashlee Munoz MD Work Phone: [facility] 12-02-2024 11:16-0500 Body weight 78 kg Ashlee Munoz MD Work Phone: [facility] 12-02-2024 11:16-0500 Diastolic blood pressure 74 mm[Hg] Aslhee Munoz MD Work Phone: [facility] 12-02-2024 11:16-0500 Heart rate 71 /min Ashlee Munoz MD Work Phone: [facility] 12-02-2024 11:16-0500 Systolic blood pressure 136 mm[Hg] Ashlee Munoz MD Work Phone: [facility] 12-02-2024 09:44-0500 Body height 167.6 cm Gena Thompson CHECKER.CNM Work Phone: [facility] 12-02-2024 09:44-0500 Body mass index (BMI) [Ratio] 27.76 kg/m2 Gena Thompson CHECKER.CNM Work Phone: [facility] 12-02-2024 09:44-0500 Body weight 78.02 kg Gena Thompson CHECKER.CNM Work Phone: [facility] 12-02-2024 09:44-0500 Diastolic blood pressure 74 mm[Hg] Gena Thompson CHECKER.CNM Work Phone: [facility] 12-02-2024 09:44-0500 Heart rate 71 /min Gena Thompson CHECKER.CNM Work Phone: [facility] 12-02-2024 09:44-0500 Systolic blood pressure 136 mm[Hg] Gena Thompson CHECKER.CNM Work Phone: [facility] 11-17-2024 11:05-0500 Body height 167.6 cm Katherine Bogner PA-C Work Phone: [facility] 11-17-2024 11:05-0500 Body mass index (BMI) [Ratio] 27.76 kg/m2 Katherine Bogner PA-C Work Phone: [facility] 11-17-2024 11:05-0500 Body weight 78.02 kg Katherine Bogner PA-C Work Phone: [facility] 11-17-2024 11:05-0500 Diastolic blood pressure 70 mm[Hg] Katherine Bogner PA-C Work Phone: [facility] 11-17-2024 11:05-0500 Heart rate 98 /min Katherine Bogner PA-C Work Phone: [facility] 11-17-2024 11:05-0500 Respiratory rate 12 /min Katherine Bogner PA-C Work Phone: [facility] 11-17-2024 11:05-0500 SaO2% (BldA) [Mass fraction] 98 % Katherine OTERO-C Work Phone: [facility] 11-17-2024 11:05-0500 Systolic blood pressure 112 mm[Hg] Katherine Tirado PA-C Work Phone: [facility] 09-14-2024 08:14-0400 Body mass index (BMI) [Ratio] 29.18 kg/m2 Nelly Praisler-Wood CHECKER.INDUCTION COORDINATION ENGINEER Work Phone: [facility] 09-14-2024 08:14-0400 Body temperature 98.71 [degF] Nelly Praisler-Wood CHECKER.INDUCTION COORDINATION ENGINEER Work Phone: [facility] 09-14-2024 08:14-0400 Body weight 82 kg Nelly Praisler-Wood CHECKER.INDUCTION COORDINATION ENGINEER Work Phone: [facility] 09-14-2024 08:14-0400 Diastolic blood pressure 84 mm[Hg] Nelly Praisler-Wood CHECKER.INDUCTION COORDINATION ENGINEER Work Phone: [facility] 09-14-2024 08:14-0400 Heart rate 93 /min Nelly Praisler-Wood CHECKER.INDUCTION COORDINATION ENGINEER Work Phone: [facility] 09-14-2024 08:14-0400 Respiratory rate 16 /min Nelly Praisler-Wood CHECKER.INDUCTION COORDINATION ENGINEER Work Phone: [facility] 09-14-2024 08:14-0400 SaO2% (BldA) [Mass fraction] 97 % Nelly Praisler-Wood CHECKER.INDUCTION COORDINATION ENGINEER Work Phone: [facility] 09-14-2024 08:14-0400 Systolic blood pressure 124 mm[Hg] Nelly Praisler-Wood CHECKER.INDUCTION COORDINATION ENGINEER Work Phone: [facility] 09-09-2024 13:58-0400 Body mass index (BMI) [Ratio] 29.25 kg/m2 Nicko George MD Work Phone: [facility] 09-09-2024 13:58-0400 Body temperature 99.39 [degF] Nicko George MD Work Phone: [facility] 09-09-2024 13:58-0400 Body weight 82.2 kg Nicko George MD Work Phone: [facility] 09-09-2024 13:58-0400 Diastolic blood pressure 80 mm[Hg] Nicko George MD Work Phone: [facility] 09-09-2024 13:58-0400 Heart rate 102 /min Nicko George MD Work Phone: [facility] 09-09-2024 13:58-0400 Respiratory rate 18 /min Nicko George MD Work Phone: [facility] 09-09-2024 13:58-0400 SaO2% (BldA) [Mass fraction] 99 % Nicko George MD Work Phone: [facility] 09-09-2024 13:58-0400 Systolic blood pressure 128 mm[Hg] Nicko George MD Work Phone: [facility] 07-23-2024 13:52-0400 Body height 167.6 cm Lita Schultz MD Work Phone: [facility] 07-23-2024 13:52-0400 Body mass index (BMI) [Ratio] 27.92 kg/m2 Lita Schultz MD Work Phone: [facility] 07-23-2024 13:52-0400 Body temperature 97.59 [degF] Lita Schultz MD Work Phone: [facility] 07-23-2024 13:52-0400 Body weight 78.47 kg Lita Schultz MD Work Phone: [facility] 07-23-2024 13:52-0400 Diastolic blood pressure 67 mm[Hg] Lita Schultz MD Work Phone: [facility] 07-23-2024 13:52-0400 Heart rate 82 /min Lita Schultz MD Work Phone: [facility] 07-23-2024 13:52-0400 Respiratory rate 17 /min Lita Schultz MD Work Phone: [facility] 07-23-2024 13:52-0400 SaO2% (BldA) [Mass fraction] 99 % Lita Schultz MD Work Phone: [facility] 07-23-2024 13:52-0400 Systolic blood pressure 135 mm[Hg] Lita Schultz MD Work Phone: [facility] 04-02-2024 07:57-0400 Body height 167.[address] MATTI JOHNSON MD [facility] 04-02-2024 07:57-0400 Body temperature 97.16 [degF] DR MATTI JOHNSON MD [facility] 04-02-2024 07:57-0400 Body weight 78.[address] MATTI JOHNSON MD [facility] 04-02-2024 07:57-0400 Diastolic Blood Pressure Non-Invasive 82 mm[Hg] DR MATTI JOHNSON MD [facility] 04-02-2024 07:57-0400 Heart rate 88 /min DR MATTI JOHNSON MD [facility] 04-02-2024 07:57-0400 Respiratory rate 16 /min DR MATTI JOHNSON MD [facility] 04-02-2024 07:57-0400 Systolic Blood Pressure Non-Invasive 123 mm[Hg] DR MATTI JOHNSON MD [facility] 05-30-2023 08:17-0400 Body temperature 98.4 [degF] Sita Athy PA-C Work Phone: [facility] 05-30-2023 08:17-0400 Body weight 81.65 kg Sita Athy PA-C Work Phone: [facility] 05-30-2023 08:17-0400 Diastolic blood pressure 78 mm[Hg] Sita Athy PA-C Work Phone: [facility] 05-30-2023 08:17-0400 Heart rate 82 /min Sita Athy PA-C Work Phone: [facility] 05-30-2023 08:17-0400 Respiratory rate 21 /min Sita Athy PA-C Work Phone: [facility] 05-30-2023 08:17-0400 SaO2% (BldA) [Mass fraction] 99 % Sita Athy PA-C Work Phone: [facility] 05-30-2023 08:17-0400 Systolic blood pressure 120 mm[Hg] Sita Athy PA-C Work Phone: [facility] 12-07-2022 16:33-0500 Body temperature 98.2 [degF] Frandy Smith Jr., MD Work Phone: [facility] 12-07-2022 16:33-0500 Body weight 78.83 kg Frandy Smith Jr., MD Work Phone: [facility] 12-07-2022 16:33-0500 Diastolic blood pressure 72 mm[Hg] Frandy Smith Jr., MD Work Phone: [facility] 12-07-2022 16:33-0500 Heart rate 90 /min Frandy Smith Jr., MD Work Phone: [facility] 12-07-2022 16:33-0500 Respiratory rate 16 /min Frandy Smith Jr., MD Work Phone: [facility] 12-07-2022 16:33-0500 SaO2% (BldA) [Mass fraction] 98 % Frandy Smith Jr., MD Work Phone: [facility] 12-07-2022 16:33-0500 Systolic blood pressure 108 mm[Hg] Frandy Smith Jr., MD Work Phone: [facility] 09-14-2022 09:21-0400 Body temperature 97.3 [degF] Dr. Dalton Mcfarland Work Phone: [facility] Work Phone: 09-14-2022 09:21-0400 Diastolic blood pressure 63 mm[Hg] Dr. Dalton Mcfarland Work Phone: [facility] Work Phone: 09-14-2022 09:21-0400 Heart rate 63 /min Dr. Dalton Mcfarland Work Phone: [facility] Work Phone: 09-14-2022 09:21-0400 Respiratory rate 16 /min Dr. Dalton Mcfarland Work Phone: [facility] Work Phone: 09-14-2022 09:21-0400 SaO2% (BldA) [Mass fraction] 100 % Dr. Dalton Mcfarland Work Phone: [facility] Work Phone: 09-14-2022 09:21-0400 Systolic blood pressure 105 mm[Hg] Dr. Dalton Mcfarland Work Phone: [facility] Work Phone: 09-14-2022 07:52-0400 Body height 167.[address] Dalton Mcfarland Work Phone: [facility] Work Phone: 09-14-2022 07:52-0400 Body mass index (BMI) [Ratio] 26.5 kg/m2 Dr. Dalton Mcfarland Work Phone: [facility] Work Phone: 09-14-2022 07:52-0400 Body weight 74.[address] Dalton Mcfarland Work Phone: [facility] Work Phone: 08-03-2022 16:29-0400 Body temperature 98.91 [degF] Gino Pendlebury CHECKER.INDUCTION COORDINATION ENGINEER Work Phone: [facility] 08-03-2022 16:29-0400 Body weight 75.75 kg Gino Pendleprecious CHECKER.INDUCTION COORDINATION ENGINEER Work Phone: [facility] 08-03-2022 16:29-0400 Diastolic blood pressure 88 mm[Hg] Gino Pendlebury CHECKER.INDUCTION COORDINATION ENGINEER Work Phone: [facility] 08-03-2022 16:29-0400 Heart rate 83 /min Gino Pendlebury CHECKER.INDUCTION COORDINATION ENGINEER Work Phone: [facility] 08-03-2022 16:29-0400 Respiratory rate 16 /min Gino Pendlebury CHECKER.INDUCTION COORDINATION ENGINEER Work Phone: [facility] 08-03-2022 16:29-0400 SaO2% (BldA) [Mass fraction] 97 % Gino Pendlebury CHECKER.INDUCTION COORDINATION ENGINEER Work Phone: [facility] 08-03-2022 16:29-0400 Systolic blood pressure 126 mm[Hg] Gino Pendlebury CHECKER.INDUCTION COORDINATION ENGINEER Work Phone: [facility] 07-06-2022 10:57-0400 Body temperature 98.29 [degF] Nelly Praisler-Wood CHECKER.INDUCTION COORDINATION ENGINEER Work Phone: [facility] 07-06-2022 10:57-0400 Body weight 76.2 kg Nelly Praisler-Wood CHECKER.INDUCTION COORDINATION ENGINEER Work Phone: [facility] 07-06-2022 10:57-0400 Diastolic blood pressure 70 mm[Hg] Nelly Praisler-Wood CHECKER.INDUCTION COORDINATION ENGINEER Work Phone: [facility] 07-06-2022 10:57-0400 Heart rate 86 /min Nelly Praisler-Wood CHECKER.INDUCTION COORDINATION ENGINEER Work Phone: [facility] 07-06-2022 10:57-0400 Respiratory rate 16 /min Nelly Praisler-Wood CHECKER.INDUCTION COORDINATION ENGINEER Work Phone: [facility] 07-06-2022 10:57-0400 SaO2% (BldA) [Mass fraction] 99 % Nelly Praisler-Wood CHECKER.INDUCTION COORDINATION ENGINEER Work Phone: [facility] 07-06-2022 10:57-0400 Systolic blood pressure 122 mm[Hg] Nelly Praisler-Wood CHECKER.INDUCTION COORDINATION ENGINEER Work Phone: [facility] 05-07-2022 13:48-0400 Body weight 76.66 kg Jacy Newman CHECKER.THERAPIST PHYS Work Phone: [facility] 05-07-2022 13:48-0400 Diastolic blood pressure 80 mm[Hg] Jacy Newman CHECKER.THERAPIST PHYS Work Phone: [facility] 05-07-2022 13:48-0400 Heart rate 70 /min Jacy Newman CHECKER.THERAPIST PHYS Work Phone: [facility] 05-07-2022 13:48-0400 Respiratory rate 16 /min Jacy Newman CHECKER.THERAPIST PHYS Work Phone: [facility] 05-07-2022 13:48-0400 SaO2% (BldA) [Mass fraction] 97 % Jacy Newman CHECKER.THERAPIST PHYS Work Phone: [facility] 05-07-2022 13:48-0400 Systolic blood pressure 120 mm[Hg] Jacy Newman CHECKER.THERAPIST PHYS Work Phone: [facility] 05-02-2022 19:16-0400 Heart rate 74 /min MICHAEL ESSENCEKA DO [facility] 05-02-2022 19:16-0400 Respiratory rate 17 /min MICHAEL SKYLAESKA DO [facility] 05-02-2022 16:15-0400 Body height 167.6 cm MICHAEL DURESKA DO [facility] 05-02-2022 16:15-0400 Body temperature 98.06 [degF] MICHAEL DURESKA DO [facility] 05-02-2022 16:15-0400 Body weight 75 kg MICHAEL DURESKA DO [facility] 05-02-2022 16:15-0400 Diastolic blood pressure 80 mm[Hg] MICHAEL DURESKA DO [facility] 05-02-2022 16:15-0400 Heart rate 79 /min MICHAEL DURESKA DO [facility] 05-02-2022 16:15-0400 Respiratory rate 24 /min MICHAEL DURESKA DO [facility] 05-02-2022 16:15-0400 Systolic blood pressure 136 mm[Hg] MICHAEL DURESKA DO [facility] 04-06-2022 11:23-0400 Body height 167.6 cm Erinn Barton APRN.INDUCTION COORDINATION ENGINEER Work Phone: [facility] 04-06-2022 11:23-0400 Body weight 77.11 kg Erinn Bartno APRN.INDUCTION COORDINATION ENGINEER Work Phone: [facility] 04-06-2022 11:23-0400 Diastolic blood pressure 70 mm[Hg] Erinn Barton APRN.INDUCTION COORDINATION ENGINEER Work Phone: [facility] 04-06-2022 11:23-0400 Systolic blood pressure 110 mm[Hg] Erinn Anglinyuliya VICKERSINDUCTION COORDINATION ENGINEER Work Phone: [facility] 03-27-2022 08:00-0400 Body height 167.6 cm Carmen Tony MD Work Phone: [facility] 03-27-2022 08:00-0400 Body temperature 98.71 [degF] Carmen Tony MD Work Phone: [facility] 03-27-2022 08:00-0400 Body weight 77.11 kg Carmen Tony MD Work Phone: [facility] 03-27-2022 08:00-0400 Diastolic blood pressure 57 mm[Hg] Carmen Tony MD Work Phone: [facility] 03-27-2022 08:00-0400 Heart rate 107 /min Carmen Tony MD Work Phone: [facility] 03-27-2022 08:00-0400 SaO2% (BldA) [Mass fraction] 98 % Carmen Tony MD Work Phone: [facility] 03-27-2022 08:00-0400 Systolic blood pressure 114 mm[Hg] Carmen Tony MD Work Phone: [facility] 02-23-2022 12:58-0400 Body height 167.6 cm Dena Khanna MD Work Phone: [facility] 02-23-2022 12:58-0400 Body weight 75.3 kg Dena Khanna MD Work Phone: [facility] 02-23-2022 12:58-0400 Diastolic blood pressure 59 mm[Hg] Dena Khanna MD Work Phone: [facility] 02-23-2022 12:58-0400 Systolic blood pressure 116 mm[Hg] Dena Khanna MD Work Phone: [facility] 02-12-2022 13:31-0400 Body height 167.6 cm [facility] 02-12-2022 13:31-0400 Body weight 75.75 kg [facility] Encounters Encounter Date Encounter Type Care Provider Facility Start: 08-09-2025 ambulatory [facility] Facility:[facility] Start: 07-14-2025 End: 07-14-2025 Patient encounter procedure Amanda Ewing CRIS Work Phone: Neurology Comment on above: Migraine without aur a and without status migrainosus, not intractable (Primary Dx); Persistent postural-perceptual dizziness; Vestibular migraine Start: 07-14-2025 End: 07-14-2025 ambulatory AMANDA FISHERFABIÁN Facility:[facility] Start: 05-06-2025 End: 07-06-2025 Follow-up encounter Carol Lebron MD Work Phone: [facility] [place] Start: 05-03-2025 End: 05-03-2025 [facility] Facility:[facility] Start: 04-13-2025 End: 04-13-2025 E-mail encounter from caregiver Jovi Kiser APRN.CNP Work Phone: Neurology Start: 04-13-2025 End: 04-13-2025 Telephone encounter Carol Lebron MD Work Phone: [facility] [place] Start: 04-13-2025 End: 04-13-2025 Patient encounter procedure Jovi Kiser APRN.CNP Work Phone: Neurology Comment on above: Persistent postural- perceptual dizziness (Primary Dx); Migraine without aura and without status migrainosus, not intractable Start: 04-13-2025 End: 04-13-2025 ambulatory Jovi Kiser APRN.INDUCTION COORDINATION ENGINEER Work Phone: Neurology Comment on above: Toradol Start: 04-05-2025 End: 04-05-2025 Office outpatient visit 25 minutes Carol Lebron MD Work Phone: [facility] [place] Comment on above: Anxiety (Primary Dx) ; Screening for depression; Other decreased white blood cell (WBC) count; Other migraine without status migrainosus, not intractable; MCC (current) use of hormonal 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 Start: 04-05-2025 End: 04-05-2025 [facility] Facility:[facility] Start: 04-05-2025 End: 06-05-2025 Follow-up encounter Carol Lebron MD Work Phone: [facility] [place] Start: 04-03-2025 End: 04-03-2025 ambulatory CAROL LEBRON Facility:[facility] Start: 03-19-2025 End: 03-22-2025 Refill Carol Lebron MD Work Phone: [facility] [place] Comment on above: Med Change Request Start: 03-02-2025 End: 05-02-2025 Follow-up encounter Katherine Tirado PA-C Work Phone: [facility] [place] Start: 02-25-2025 End: 02-25-2025 ambulatory [facility] Facility:[facility] Start: 02-22-2025 End: 02-22-2025 ambulatory KATHERINE TIRADO Facility:[facility] Start: 02-21-2025 End: 02-23-2025 ambulatory Carol Lebron MD Work Phone: [facility] [place] Comment on above: New depression meds Start: 02-04-2025 End: 02-04-2025 Office outpatient visit 25 minutes Lita Schultz MD Work Phone: Colorectal Surgery Comment on above: Anal fissure (Primar y Dx) Start: 02-04-2025 End: 02-04-2025 ambulatory LITA SCHULTZ Facility:[facility] Start: 01-20-2025 End: 01-20-2025 ambulatory Carol Lebron MD Work Phone: [facility] [place] Comment on above: Why more blood work? Start: 01-20-2025 End: 01-20-2025 Follow-up encounter Katherine Tirado PA-C Work Phone: [facility] [place] Comment on above: Abnormal WBC count ( Primary Dx) Start: 01-11-2025 End: 01-11-2025 ambulatory CAROL LEBRON Facility:[facility] Start: 12-16-2024 End: 12-16-2024 ambulatory JOSSIEDANA LEW Facility:[facility] Start: 12-16-2024 End: 12-16-2024 Office outpatient new 60 minutes Jossie Lew MD Work Phone: [facility] Comment on above: Abnormal weight gain (Primary Dx); Nutritional counseling Start: 12-04-2024 End: 12-04-2024 Admission to same day surgery center Radha Pham INDUCTION COORDINATION ENGINEER Work Phone: Colorectal Surgery Comment on above: Postoperative examin ation (Primary Dx) Start: 12-04-2024 End: 12-04-2024 ambulatory RADHA ROSS Facility:[facility] Start: 12-04-2024 End: 12-04-2024 Telemedicine consultation with patient Radha Pham INDUCTION COORDINATION ENGINEER Work Phone: Colorectal Surgery Start: 12-02-2024 End: 12-02-2024 ambulatory ASHLEE MUNOZ Facility:[facility] Start: 12-02-2024 End: 12-02-2024 Office outpatient visit 40 minutes Ashlee Munoz MD Work Phone: [facility] Comment on above: Perimenopause (Prima ry Dx); Perimenopausal vasomotor symptoms; Weight gain Start: 12-02-2024 End: 12-02-2024 ambulatory GENA THOMPSON Facility:[facility] Start: 12-02-2024 End: 12-02-2024 Female genitalia finding Gena Thompson APRN.CNM Work Phone: [facility] Work Phone: Start: 12-02-2024 End: 12-02-2024 Patient encounter procedure Gena Thompson APRN.CNM Work Phone: Gynecology Comment on above: Gynecologic exam nor mal (Primary Dx); Cervical cancer screening Start: 11-17-2024 End: 11-17-2024 Office outpatient visit 15 minutes Katherine Tirado PA-C Work Phone: [facility] Comment on above: Elevated cholesterol (Primary Dx); Thunderclap headache Start: 11-17-2024 End: 11-17-2024 ambulatory KATHERINE TIRADO Facility:[facility] Start: 11-04-2024 End: 11-04-2024 Refill Monique Gonzales APRN.INDUCTION COORDINATION ENGINEER Work Phone: [facility] [place] Comment on above: Refill Request Start: 10-27-2024 End: 10-27-2024 Admission to same day surgery center Lita Schultz MD Work Phone: Colorectal Surgery Comment on above: Numbing suppository Start: 10-27-2024 End: 10-27-2024 ambulatory Lita Schultz MD Work Phone: Colorectal Surgery Start: 10-23-2024 End: 10-23-2024 ambulatory [facility] Facility:[facility] Start: 10-12-2024 End: 10-12-2024 [facility] Facility:[facility] Start: 09-14-2024 End: 09-14-2024 [facility] Facility:[facility] Start: 09-14-2024 End: 09-14-2024 Patient encounter procedure Nelly Taylor APRN.INDUCTION COORDINATION ENGINEER Work Phone: [facility] Comment on above: Sore throat (Primary Dx); Sinobronchitis Start: 09-09-2024 End: 09-09-2024 Subsequent hospital visit by physician Brandee [facility] Work Phone: Radiology Comment on above: Acute cough [R05.1] Start: 09-09-2024 End: 09-09-2024 Office outpatient visit 15 minutes Nicko George MD Work Phone: [facility] Comment on above: Acute cough (Primary Dx) Start: 09-09-2024 End: 09-09-2024 Admission to same day surgery center Lita Schultz MD Work Phone: Colorectal Surgery Comment on above: surgery Start: 09-09-2024 End: 09-14-2024 ambulatory Lita Schultz MD Work Phone: Colorectal Surgery Start: 07-31-2024 End: 08-03-2024 Admission to same day surgery center Lita Schultz MD Work Phone: Colorectal Surgery Start: 07-31-2024 End: 08-03-2024 ambulatory Lita Schultz MD Work Phone: Colorectal Surgery Start: 07-29-2024 End: 07-29-2024 Admission to same day surgery center Lita Schultz MD Work Phone: Colorectal Surgery Comment on above: Schedule Surgery Start: 07-29-2024 End: 07-29-2024 ambulatory Lita Schultz MD Work Phone: Colorectal Surgery Start: 07-23-2024 End: 07-23-2024 Patient encounter procedure Lita Schultz MD Work Phone: Colorectal Surgery Comment on above: External hemorrhoid (Primary Dx); Hemorrhoidal skin tag Start: 07-23-2024 End: 07-23-2024 ambulatory LITA SCHULTZ Facility:[facility] Start: 07-22-2024 End: 07-22-2024 ambulatory SILVINA PRESLEY Facility:[facility] Start: 07-22-2024 Patient encounter procedure LITA SCHULTZ [facility] Start: 07-13-2024 End: 07-16-2024 ambulatory Carol Lebron MD Work Phone: [facility] [place] Start: 07-13-2024 End: 07-16-2024 Patient encounter procedure Carol Lebron MD Work Phone: [facility] [place] Comment on above: Appointment with Silvina Presley/ You were not available Start: 04-02-2024 End: 04-02-2024 Emergency department patient visit PROSPER COBOS CHECKER - INDUCTION COORDINATION ENGINEER Facility:[facility] Start: 04-02-2024 End: 04-02-2024 Emergency department patient visit DR MATTI JOHNSON MD [facility] Start: 03-20-2024 End: 03-21-2024 ambulatory PROSPER COBOS CHECKER - INDUCTION COORDINATION ENGINEER Facility:B Start: 03-20-2024 End: 03-20-2024 Patient encounter procedure ELAYNE MARINO MD [facility] Start: 08-12-2023 Refill Frandy tsai MD Work Phone: Internal Medicine [place] Comment on above: Refill Request Start: 08-05-2023 End: 08-05-2023 ambulatory [facility] Work Phone: Start: 08-05-2023 End: 08-05-2023 Patient encounter procedure [facility] Work Phone: Start: 05-30-2023 End: 05-30-2023 Patient encounter procedure Sita Garza PA-C Work Phone: [facility] Comment on above: Acute URI (Primary D x) Start: 05-01-2023 ambulatory Carol Dwyer Work Phone: Internal Medicine [place] Comment on above: Ativan Start: 02-17-2023 Refill Frandy tsai MD Work Phone: Neurology Comment on above: Refill Request Start: 12-07-2022 End: 12-07-2022 Patient encounter procedure Frandy Smith MD Work Phone: Neurology Comment on above: Menstrual migraine w ithout status migrainosus, not intractable (Primary Dx); Migrainous dizziness Start: 11-14-2022 End: 11-14-2022 ambulatory Jovi Kiser INDUCTION COORDINATION ENGINEER Work Phone: Neurology Comment on above: Menstrual migraine w ithout status migrainosus, not intractable (Primary Dx); Migrainous dizziness Start: 11-14-2022 End: 11-14-2022 Telemedicine consultation with patient Jovi Kiser INDUCTION COORDINATION ENGINEER Work Phone: [facility] Start: 10-20-2022 ambulatory [facility] Adult Neur ology Comment on above: gabapentin Start: 10-16-2022 End: 10-16-2022 ambulatory Galilea Marquez PT [facility] Physical Therapy Comment on above: Vertigo (Primary Dx) Start: 10-01-2022 End: 10-01-2022 ambulatory Jovi Kiser CHECKER.INDUCTION COORDINATION ENGINEER Work Phone: Adult Neurology Comment on above: Vertigo (Primary Dx) ; Menstrual migraine without status migrainosus, not intractable Start: 10-01-2022 End: 10-01-2022 Telemedicine consultation with patient Jovi Kiser CHECKER.INDUCTION COORDINATION ENGINEER Work Phone: [facility] Start: 09-28-2022 End: 09-28-2022 Subsequent hospital visit by physician [employer] [facility] (I-Stat/1.5t) Work Phone: Radiology Comment on above: Vertigo [R42] Start: 09-20-2022 ambulatory Frandy tsai MD Work Phone: Neurology Comment on above: Moved up brain scans / Please moved up appt. Start: 09-20-2022 Telephone encounter Frandy Smith MD Work Phone: Neurology Comment on above: ER F/U Start: 09-19-2022 End: 09-19-2022 Emergency department patient visit DR FRANDY BENSON [facility] Start: 09-14-2022 Non-patient / Non-visit Dr. Torri Mcfarland Work Phone: [facility] Start: 09-14-2022 End: 09-14-2022 Admission to same day surgery center Dr. Dalton Mcfarland Work Phone: [facility] Start: 09-14-2022 End: 09-14-[address] Dalton Mcfarland Work Phone: [facility] Work Phone: Start: 09-10-2022 Refill Frandy tsai MD Work Phone: Neurology Comment on above: Refill Request Start: 08-03-2022 End: 08-03-2022 Patient encounter procedure Gino Man APRN.INDUCTION COORDINATION ENGINEER Work Phone: [facility] Comment on above: Rash (Primary Dx) Start: 08-02-2022 End: 08-06-2022 Outreach Lab ANN-MARIE BROOKS MD [facility] Start: 08-02-2022 End: 08-02-2022 ambulatory [facility] Work Phone: Start: 08-02-2022 End: 08-02-2022 Patient encounter procedure [facility] Start: 08-01-2022 Refill Carol Dwyer Work Phone: [facility] [place] Comment on above: Refill Request Start: 07-30-2022 End: 07-30-2022 ambulatory Frandy Smith MD Work Phone: Neurology Comment on above: Vertigo (Primary Dx) ; Migraine without status migrainosus, not intractable, unspecified migraine type; Menstrual migraine without status migrainosus, not intractable; Cervicalgia; Spinal stenosis of cervical region Start: 07-30-2022 End: 07-30-2022 Telemedicine consultation with patient Frandy Smith Jr., MD Work Phone: [facility] [place] Start: 07-06-2022 End: 07-06-2022 Patient encounter procedure Nelly Taylor APRN.INDUCTION COORDINATION ENGINEER Work Phone: [place] [facility] Comment on above: Urinary frequency (P rimary Dx) Start: 06-12-2022 ambulatory Carol Dwyer Work Phone: Internal Medicine [place] Comment on above: Covid19 Concern Start: 05-28-2022 Refill Silvina Presley CHECKER .INDUCTION COORDINATION ENGINEER Work Phone: Family Medicine [place] Comment on above: Refill Request Start: 05-07-2022 End: 05-07-2022 Patient encounter procedure Jacy Newman APRN.THERAPIST PHYS Work Phone: [facility] [place] Comment on above: Dizziness (Primary D x); Hx of migraines; Nausea Start: 05-03-2022 Telephone encounter Carol hikcs MD Work Phone: [facility] [place] Comment on above: Patient Request Start: 05-02-2022 End: 05-02-2022 Emergency department patient visit MICHAEL MENDOZA DO [facility] Start: 05-02-2022 ambulatory Carol Ganta M D Work Phone: Internal [facility] [place] Comment on above: Dizziness Start: 05-01-2022 ambulatory Carol Ganta M D Work Phone: [facility] [place] Comment on above: migraines Start: 04-30-2022 Refill Carol Ganta M D Work Phone: [facility] [place] Comment on above: Refill Request Start: 04-19-2022 Refill Carol Ganta M D Work Phone: [facility] [place] Comment on above: Refill Request Start: 04-06-2022 End: 04-06-2022 Patient encounter procedure Erinn Barton APRN.INDUCTION COORDINATION ENGINEER Work Phone: URO/Gynecology Comment on above: Postoperative state (Primary Dx) Start: 04-02-2022 ambulatory Dena reich MD Work Phone: URO/Gynecology Comment on above: Will I see you?/ Que stions to ask Start: 03-27-2022 End: 03-27-2022 Patient encounter procedure Carmen Tony MD Work Phone: General Surgery Comment on above: Hemorrhoids, unspeci fied hemorrhoid type (Primary Dx); Screening for colon cancer Start: 03-26-2022 ambulatory Dena reich MD Work Phone: URO/Gynecology Comment on above: Leaked Start: 02-27-2022 End: 02-27-2022 Evaluation and management of inpatient Erinn Barton APRN.INDUCTION COORDINATION ENGINEER Work Phone: URO/Gynecology Comment on above: Postoperative state (Primary Dx) Start: 02-23-2022 Chart abstracting Samira Son RN Gynecology Comment on above: Informed Consent (St op Pain Study) Start: 02-23-2022 End: 02-23-2022 Patient encounter procedure Dena Khanna MD Work Phone: URO/Gynecology Comment on above: Preoperative examina tion Start: 02-23-2022 End: 02-23-2022 Preprocedural examination done Dena Khanna MD Work Phone: URO/Gynecology Start: 02-23-2022 End: 02-23-2022 Nursing evaluation of patient and report [facility] Comment on above: Stress incontinence (Primary Dx) Start: 02-20-2022 Admission to [facility] Dena Khanna MD Work Phone: URO/Gynecology Comment on above: surgery question Start: 02-20-2022 ambulatory Dena reich MD Work Phone: [facility] Start: 02-14-2022 End: 02-14-2022 ambulatory Nurse Aquaculturist Work Phone: Gynecology Comment on above: Educational circumst ances (Primary Dx) Start: 02-14-2022 End: 02-14-2022 Telemedicine consultation with patient Nurse Aquaculturist Work Phone: [facility] Start: 02-12-2022 End: 02-12-2022 Admission to surgery [facility] Start: 02-12-2022 End: 02-12-2022 ambulatory [facility] Pre Anesthesia Comment on above: Preop examination (P rimary Dx); TOM (stress urinary incontinence, female) Start: 02-12-2022 End: 02-12-2022 Preprocedural examination done [facility] Pre Anesthesia Start: 02-08-2022 Telephone encounter Carmen Cano MD Work Phone: General Surgery Comment on above: 04-12-2022 COLON/EXT ERNAL HEMORRHOIDS LODI Start: 11-24-2020 End: 11-24-2020 Subsequent hospital visit by physician Brandee [facility] [place] Work Phone: Radiology Comment on above: Bilateral wrist pain [M25.531, M25.532] Procedures Date Procedure Procedure Detail Performing Clinician Start: 05-19-2025 Adult depression scr eening assessment Carol Lebron MD Work Phone: Start: 01-11-2025 Lipid 1996 panel - S rigoberto or Plasma Carol Lebron MD Work Phone: Start: 09-14-2024 STREP A MOLECULAR (POC) Cameron Shah CHECKER.INDUCTION COORDINATION ENGINEER Work Phone: Start: 09-09-2024 Radiologic exam ches t 2 views Nicko George MD Work Phone: Start: 07-22-2024 Lipid 1996 panel - S rigoberto or Plasma Lita Schultz MD Work Phone: Start: 08-05-2023 Screening mammography Start: 05-30-2023 STREP A MOLECULAR (POC) Sita Garza PA-C Work Phone: Start: 03-22-2023 Lipid 1996 panel - S rigoberto or Plasma Frandy Smith Jr., MD Work Phone: Start: 09-28-2022 Mri brain brain stem w/o w/contrast material Frandy Smith MD Work Phone: Start: 09-14-2022 End: 09-14-[address] Dalton Mcfarland Work Phone: Start: 08-02-2022 End: 08-02-2022 Mammography Carol Lebron MD Work Phone: Start: 07-06-2022 Urnls dip stick/tabl et rgnt auto w/o microscopy Galilea Brunner CHECKER.INDUCTION COORDINATION ENGINEER Work Phone: Start: 02-16-2022 Pelvic sling ANN-MARIE Meek MD Comment on above: [facility] Start: 10-24-2021 Adult depression scr eening assessment [facility] Start: 11-24-2020 Radex wrist complete minimum 3 views Todd Gold MD Work Phone: Start: 01-08-2018 Mammography [facility] Start: 09-16-2013 Colonoscopy [facility] Start: 11-18-2000 Colonoscopy MICHAEL PATRICIAA DO section MICHAEL PARKER DO Cholecystectomy MICHAEL CRUMNICKYJerri Damon DO Plan of Treatment Date Care Activity Detail Author Start: 03-22-2033 Urine microalbumin profile [facility] Start: 01-11-2030 Lipid panel Lipid Screening [facility] Start: 12-02-2029 Screening for malignant neoplasm of cervix Cervical Cancer Screening [facility] Start: 07-22-2029 Lipid panel Lipid Screening [facility] Start: 03-22-2028 Lipid 1996 panel - Serum or Plasma Lipid Screening [facility] Start: 03-22-2028 Lipid panel Lipid Screening [facility] Start: 03-22-2028 LIPID SCREEN LIPID SCREEN [facility] Start: 01-11-2028 Diabetes Screening Diabetes Screening [facility] Start: 10-23-2027 Diabetes Screening Diabetes Screening [facility] Start: 07-30-2027 HPV TESTING HPV TESTING [facility] Start: 07-30-2027 PAP TESTING PAP TESTING [facility] Start: 07-30-2027 Screening for malignant neoplasm of cervix Cervical Cancer Screening [facility] Start: 07-22-2027 Diabetes Screening Diabetes Screening [facility] Start: 01-22-2027 LIPID SCREEN LIPID SCREEN [facility] Start: 04-05-2026 Depression Screening Depression Screening [facility] Start: 01-18-2026 End: 01-18-2026 Follow-up encounter 01/18/2026 4:00 PM [facility] Neurology [address] [place], [place] [id number] Amanda Ewing PA-C [address] [place] [address] 6 MONTH FOLLOW UP Neurology Comment on above: 6 MONTH FOLLOW UP Start: 07-19-2025 Influenza vaccination Influenza Vaccine (#1) [facility] Start: 07-14-2025 End: 07-14-2025 Patient encounter procedure 07/14/2025 8:30 AM EDT Office Visit Neurology [address] [place], [place] [id number] Amanda Ewing PA-C [address] [place] [address] Est care, provider left [facility] Neurology Comment on above: Est care, provider left [facility] Start: 06-22-2025 End: 06-22-2025 Patient encounter procedure 06/22/2025 9:00 AM EDT Office Visit Internal [facility] [place] [address] [facility] [address] Carol Lebron MD [address] [facility] [place] [address] 2 mo follow up [facility] [place] Comment on above: 2 mo follow up Start: 05-03-2025 End: 05-03-2025 ambulatory 05/03/2025 10:00 AM EDT Results Only [place] [facility] [address] [facility] [address] [facility] Start: 04-27-2025 End: 04-27-2025 Patient encounter procedure 04/27/2025 12:00 PM EDT Office Visit Internal Medicine [place] [address] [facility] [address] Carol Lebron MD [address] [facility] [place] [address] 2 mo follow up [facility] [place] Comment on above: 2 mo follow up Start: 04-24-2025 End: 04-24-2025 ambulatory 04/24/2025 11:45 AM EDT Results Only [place] [facility] [address] [facility] [address] CBC [place] [facility] Comment on above: CBC Start: 04-13-2025 End: 04-13-2025 Patient encounter procedure 04/13/2025 10:30 AM EDT Office Visit Neurology [address] [place] [address] Jovi Kiser APRN.INDUCTION COORDINATION ENGINEER [address] [place] [address] Migraines and dizziness Neurology Comment on above: Migraines and dizziness Start: 04-05-2025 End: 07-05-2025 CBC W Auto Differential panel - Blood COMPLETE BLOOD COUNT AND DIFFERENTIAL Lab Routine Other decreased white blood cell (WBC) count Expected: 04/05/2025, Expires: 07/05/2025 [facility] Work Phone: Comment on above: Expected: 04/05/2025, Expires: Start: 04-02-2025 End: 04-02-2025 ambulatory 04/02/2025 11:30 AM EDT [facility] [address] [place] [address] Jossie Lew MD [address] [place] [id number] Overall well being Integrative Medicine Comment on above: Overall well being Start: 03-03-2025 End: 03-03-2025 ambulatory 03/03/2025 5:30 PM EDT [facility] [address] [place] [address] Radha Bright PA-C [address] [place], [place] [id number] [facility] SMA CLASS #6 [facility] Comment on above: [facility] SMA CLASS #6 Start: 02-24-2025 End: 02-24-2025 ambulatory 02/24/2025 5:30 PM EDT [facility] [address] [place] [address] Radha Bright PA-C [address] [place] [address] [facility] SMA CLASS #5 [facility] Comment on above: [facility] SMA CLASS #5 Start: 02-22-2025 End: 02-22-2025 ambulatory 02/22/2025 7:45 AM EDT Results Only [place] [facility] [address] [place] [address] [facility] Start: 02-20-2025 End: 07-05-2025 CBC W Auto Differential panel - Blood COMPLETE BLOOD COUNT AND DIFFERENTIAL Lab Routine Abnormal WBC count Expected: 02/20/2025, Expires: 05/22/2025 [facility] Work Phone: Comment on above: Expected: 02/20/2025, Expires: Start: 02-17-2025 End: 02-17-2025 ambulatory 02/17/2025 5:30 PM EDT [facility] [place] [address] Radha Bright PA-C [address] [place], [place] [id number] [facility] SMA CLASS #4 [facility] Comment on above: [facility] SMA CLASS #4 Start: 02-10-2025 End: 02-10-2025 ambulatory 02/10/2025 5:30 PM EDT [facility] [place] [address] Chioma Martinez MD [address] [place], [place] [id number] [facility] SMA CLASS #3 [facility] Comment on above: [facility] SMA CLASS #3 Start: 02-05-2025 DIABETES SCREEN DIABETES SCREEN [facility] Start: 02-05-2025 Diabetes Screening Diabetes Screening [facility] Start: 02-03-2025 End: 02-03-2025 ambulatory 02/03/2025 5:30 PM EDT [facility] [place] [address] Radha Bright PA-C [address] [place], [place] [id number] [facility] SMA CLASS #2 [facility] Comment on above: [facility] SMA CLASS #2 Start: 01-28-2025 End: 01-28-2025 ambulatory 01/28/2025 8:00 AM EDT [facility] End[facility] [address] [place], [place] [phone] Siva Freitas MD [address] [place] [address] Meds that can help vs hurt weight gain Endocrinology Comment on above: Meds that can help vs hurt weight gain Start: 01-27-2025 End: 01-27-2025 ambulatory 01/27/2025 5:30 PM EDT [facility] [address] [place] [address] Radha Bright PA-C [address] [place] [address] [facility] SMA CLASS #1 [facility] Comment on above: [facility] SMA CLASS #1 Start: 01-11-2025 End: 01-11-2025 ambulatory 01/11/2025 7:30 AM EST Results Only [facility] [address] [place] [address] [facility] Start: 12-04-2024 End: 12-04-2024 Admission to same day surgery center 12/04/2024 4:30 PM EST [facility] Colorectal Surgery [address] [address] Radha Pham APRN.INDUCTION COORDINATION ENGINEER [address] [place] [address] Post Op Colorectal Surgery Comment on above: Post Op Start: 12-02-2024 End: 12-02-2024 Patient encounter procedure 12/02/2024 11:30 AM EST Office Visit [facility] [address] [address] Ashlee Munoz MD [address] [address] perimenopausal [facility] Comment on above: perimenopausal Start: 12-02-2024 End: 12-02-2024 Patient encounter procedure 12/02/2024 10:15 AM EST Office Visit Gynecology [address] [address] Gena Thompson APRN.[facility] [address] [place] [address] ANNUAL Gynecology Comment on above: ANNUAL Start: 11-17-2024 End: 02-16-2025 Basic metabolic 2000 panel - Serum or Plasma BASIC METABOLIC PANEL Lab Routine Elevated cholesterol Expected: 11/17/2024, Expires: 02/16/2025 [facility] Comment on above: Expected: 11/17/2024, Expires: Start: 11-17-2024 End: 02-16-2025 CBC W Auto Differential panel - Blood COMPLETE BLOOD COUNT AND DIFFERENTIAL Lab Routine Elevated cholesterol Expected: 11/17/2024, Expires: 02/16/2025 [facility] Comment on above: Expected: 11/17/2024, Expires: Start: 11-17-2024 End: 02-16-2025 Lipid 1996 panel - Serum or Plasma LIPID PANEL BASIC Lab Routine Elevated cholesterol Expected: 11/17/2024, Expires: 02/16/2025 [facility] Work Phone: Comment on above: Expected: 11/17/2024, Expires: Start: 11-17-2024 End: 11-17-2024 Patient encounter procedure 11/17/2024 11:00 AM EST Office Visit [facility] [place] [address] [place] [address] Katherine Tirado PA-C [address] [place] [address] yearly [facility] Medicine [place] Comment on above: yearly Start: 10-23-2024 End: 10-23-2024 Admission to same day surgery center 10/23/2024 7:30 AM EST - 10/23/2024 8:51 AM EST Surgery Admitting [address] [place] [address] Lita Schultz MD [address] [place] [address] HEMORRHOIDECTOMY EXTERNAL AND INTERNAL 2 OR MORE COLUMNS/GROUPS Admitting Comment on above: HEMORRHOIDECTOMY EXTERNAL AND INTERNAL 2 OR MORE COLUMNS/GROUPS Start: 10-23-2024 End: 10-23-2024 Hemorrhoidectomy int & xtrnl 2/> column/lolita HEMORRHOIDECTOMY EXTERNAL AND INTERNAL 2 OR MORE COLUMNS/GROUPS External hemorrhoid 10/23/2024 7:30 AM EST [facility] Start: 10-23-2024 Subsequent hospital visit by physician 10/23/2024 7:30 AM EST Hospital Encounter Admitting [address] [place] [address] Lita Schultz MD [address] [place] [address] External hemorrhoid [K64.4] Admitting Comment on above: External hemorrhoid [K64.4] Start: 10-12-2024 End: 10-12-2024 Patient encounter procedure 10/12/2024 10:00 AM EST Office Visit Financial Clearance Phone Screening [facility] pre op Financial Clearance Phone Screening Comment on above: pre op Start: 08-19-2024 End: 08-19-2024 Patient encounter procedure 08/19/2024 4:20 PM EDT Office Visit Internal Medicine [place] [address] [place] [address] Silvina Presley APRN.INDUCTION COORDINATION ENGINEER [address] [place] [address] Yearly checkup [facility] [place] Comment on above: Yearly checkup Start: 08-05-2024 Mammography Mammogram Screening [facility] Start: 08-05-2024 Screening for malignant neoplasm of breast Mammogram Screening [facility] Start: 2024 Pneumococcal Vaccine: 50+ (1 of 1 - PCV) Pneumococcal Vaccine: 50+ (1 of 1 - PCV) [facility] Start: 2024 Shingrix Vaccine (1 of 2) Shingrix Vaccine (1 of 2) [facility] Start: 07-23-2024 End: 07-23-2024 Patient encounter procedure 07/23/2024 2:00 PM EDT Office Visit Colorectal Surgery [address] [address] Lita Schultz MD [address] [place] [address] Hemorrhoids Colorectal Surgery Comment on above: Hemorrhoids Start: 07-22-2024 End: 07-22-2024 ambulatory 07/22/2024 7:30 AM EDT Results Only [place] [facility] [address] [facility] [address] [place] [facility] Start: 07-19-2024 Covid-19 Vaccine ( season) Covid-19 Vaccine ( season) [facility] Start: 07-19-2024 Covid-19 Vaccine () Covid-19 Vaccine () [facility] Start: 07-19-2024 Influenza vaccination Influenza Vaccine (#1) [facility] Start: 07-16-2024 End: 10-15-2024 CBC W Auto Differential panel - Blood COMPLETE BLOOD COUNT AND DIFFERENTIAL Lab Routine Other fatigue Annual physical exam Expected: 07/16/2024 (Approximate), Expires: 10/15/2024 [facility] Comment on above: Expected: 07/16/2024 (Approximate), Expi res: 10/15/2024 Start: 07-16-2024 End: 10-15-2024 Comprehensive metabolic 2000 panel - Serum or Plasma COMPREHENSIVE METABOLIC PANEL Lab Routine Other fatigue Annual physical exam Expected: 07/16/2024, Expires: 10/15/2024 [facility] Comment on above: Expected: 07/16/2024, Expires: Start: 07-16-2024 End: 10-15-2024 Lipid 1996 panel - Serum or Plasma LIPID PANEL BASIC Lab Routine Annual physical exam Expected: 07/16/2024, Expires: 10/15/2024 [facility] Work Phone: Comment on above: Expected: 07/16/2024, Expires: Start: 07-16-2024 End: 10-15-2024 Thyrotropin [Units/volume] in Serum or Plasma THYROID STIMULATING HORMONE Lab Routine Other fatigue Expected: 07/16/2024, Expires: 10/15/2024 [facility] Comment on above: Expected: 07/16/2024, Expires: Start: 07-16-2024 End: 10-15-2024 Thyroxine (T4) free [Mass/volume] in Serum or Plasma T4 FREE/FREE THYROXINE Lab Routine Other fatigue Expected: 07/16/2024, Expires: 10/15/2024 [facility] Comment on above: Expected: 07/16/2024, Expires: Start: 07-16-2024 End: 10-15-2024 Triiodothyronine (T3) Free [Mass/volume] in Serum or Plasma T3, FREE Lab Routine Other fatigue Expected: 07/16/2024, Expires: 10/15/2024 [facility] Comment on above: Expected: 07/16/2024, Expires: Start: 01-07-2024 Covid-19 Vaccine () Covid-19 Vaccine () [facility] Start: 09-14-2023 Colonoscopy COLONOSCOPY [facility] Start: 09-14-2023 COLORECTAL CANCER SCREENING COLORECTAL CANCER SCREENING [facility] Start: 09-14-2023 Screening for malignant neoplasm of colon [facility] Start: 08-02-2023 Mammography MAMMOGRAM [facility] Start: 07-19-2023 Covid-19 Vaccine () Covid-19 Vaccine () [facility] Start: 07-19-2023 Influenza vaccination [facility] Start: 05-30-2023 End: 06-13-2023 Influenza virus A and B RNA and SARS-CoV-2 (COVID-19) N gene panel - Respiratory specimen by DESTINY with probe detection [facility] Work Phone: Comment on above: Expected: 05/30/2023, Expires: 3 Start: 11-18-2022 DEPRESSION ASSESSMENT DEPRESSION ASSESSMENT [facility] Start: 10-24-2022 Adult depression screening assessment DEPRESSION SCREENING [facility] Start: 09-14-2022 Patient discharge [facility] Work Phone: Start: 07-19-2022 Influenza vaccination INFLUENZA (#1) [facility] Start: 01-04-2022 HPV TESTING HPV TESTING [facility] Start: 01-04-2022 PAP TESTING PAP TESTING [facility] Start: 11-18-2021 DEPRESSION ASSESSMENT DEPRESSION ASSESSMENT [facility] Start: 2019 COLOGUARD (FIT-DNA) COLOGUARD (FIT-DNA) [facility] Start: 2019 Colonoscopy COLONOSCOPY [facility] Start: 2019 COLORECTAL CANCER SCREENING COLORECTAL CANCER SCREENING [facility] Start: [address] COLONOGRAPHY [facility] Start: 2019 FECAL OCCULT BLOOD FECAL OCCULT BLOOD [facility] Start: 2019 Screening for malignant neoplasm of colon [facility] Start: 2019 SIGMOIDOSCOPY SIGMOIDOSCOPY [facility] Start: 01-08-2019 Mammography MAMMOGRAM [facility] Start: 07-01-2007 HEPATITIS B (3 of 3 - 19+ 3-dose series) HEPATITIS B (3 of 3 - 19+ 3-dose series) [facility] Start: 03-26-2007 HEPATITIS B (3 of 3 - 3-dose series) [facility] Start: 03-26-2007 Hepatitis B Vaccine (3 of 3 - 19+ 3-dose series) Hepatitis B Vaccine (3 of 3 - 19+ 3-dose series) [facility] Start: 09-17-1999 Urine microalbumin profile DTAP,TDAP,TD (1 - Tdap) [facility] Start: 1992 Depression Screening Depression Screening [facility] Start: 1992 HEPATITIS C SCREENING HEPATITIS C SCREENING [facility] Start: 1992 HIV SCREENING HIV SCREENING [facility] Bacteria identified in Urine by Culture URINE CULTURE Microbiology Routine Urinary frequency 07/06/2022 11:31 AM EDT [facility] Work Phone: End: 10-09-2025 DBT Breast - bilateral screening MARIO SCREENING [facility] Radiology Routine Encounter for screening mammogram for breast cancer 1 Occurrences starting 09/09/2024 until 10/09/2025 [facility] Work Phone: Comment on above: 1 Occurrences starting 09/09/2024 until 10/09/2025 HIGH RISK HUMAN PAPILLOMA VIRUS (HPV), PCR FOR DETECTION AND GENOTYPING HIGH RISK HUMAN PAPILLOMA VIRUS (HPV), PCR FOR DETECTION AND GENOTYPING Lab Routine Cervical cancer screening 12/02/2024 10:10 AM [facility] End: 08-29-2023 Mri brain brain stem w/o w/contrast material MRI BRAIN WO/W IVCON Radiology Routine Vertigo Migraine without status migrainosus, not intractable, unspecified migraine type Menstrual migraine without status migrainosus, not intractable Cervicalgia 1 Occurrences starting 07/30/2022 until 08/29/2023 [facility] Work Phone: Comment on above: 1 Occurrences starting 07/30/2022 until 08/29/2023 End: 08-29-2023 Mri spinal canal cervical w/o contrast matrl MRI CERVICAL SPINE WO IVCON Radiology Routine Vertigo Migraine without status migrainosus, not intractable, unspecified migraine type Menstrual migraine without status migrainosus, not intractable Spinal stenosis of cervical region 1 Occurrences starting 07/30/2022 until 08/29/2023 [facility] Work Phone: Comment on above: 1 Occurrences starting 07/30/2022 until 08/29/2023 PAP TEST PAP TEST Lab Rou zurdo Cervical cancer screening 12/02/2024 10:10 AM [facility] Work Phone: Patient referral [facility] Work Phone: PT PLAN OF CARE CERTIFICATION PT PLAN OF CARE CERTIFICATION Procedures Routine Vertigo Ordered: 10/16/2022 [facility] Comment on above: Ordered: 10/16/2022 [facility]ICS [facility] URODYNAMICS [facility] Procedures Routine TOM (stress urinary incontinence, female) Ordered: 12/08/2021 [facility] Work Phone: Comment on above: Ordered: 12/08/2021 [facility] Immunizations Immunization Date Immunization Notes Care Provider [facility] 09-03-2024 influenza virus vaccine, unspecified formulation Carol Lebron MD Work Phone: [facility] 11-12-2023 COVID-19 original vaccine, booster dose, monovalent (MODERNA) Carol Lebron MD Work Phone: [facility] 08-06-2023 influenza virus vaccine, unspecified formulation Lita Schultz MD Work Phone: [facility] 03-22-2023 tetanus toxoid, redu shirley diphtheria toxoid, and acellular pertussis vaccine, adsorbed Carol Lebron MD Work Phone: [facility] Work Phone: 09-04-2022 COVID-19 booster vaccine, age 12+ yr, bivalent (MODERNA) Frandy Smith Jr., MD Work Phone: [facility] 09-04-2022 influenza, injectabl e, quadrivalent, contains preservative Frandy Smith Jr., MD Work Phone: [facility] 09-04-2022 influenza virus vaccine, unspecified formulation Frandy Smith Jr., MD Work Phone: [facility] 12-13-2021 influenza, seasonal, injectable [facility] 09-22-2021 COVID-19 vaccine, fu ll dose (MODERNA) [facility] Work Phone: 02-10-2021 COVID-19, mRNA, LNP- S, PF, 100 mcg or 50 mcg dose; Translations: [Moderna COVID-19 Vaccine] MICHAEL MENDOZA DO [facility] 01-13-2021 COVID-19, mRNA, LNP- S, PF, 100 mcg or 50 mcg dose; Translations: [Moderna COVID-19 Vaccine] MICHAEL MENDOZA DO [facility] 10-10-2012 influenza virus vaccine, unspecified formulation [facility] 09-18-2010 influenza virus vaccine, unspecified formulation [facility] Work Phone: 09-02-2009 influenza virus vaccine, unspecified formulation [facility] 01-29-2007 hepatitis B vaccine, adult dosage [facility] Work Phone: 01-29-2007 hepatitis B vaccine, unspecified formulation [facility] Work [facility] 09-02-2006 hepatitis B vaccine, adult dosage [facility] Work Phone: 09-16-1999 tetanus and diphther ia toxoids, adsorbed, preservative free, for adult use (2 Lf of tetanus toxoid and 2 Lf of diphtheria toxoid) [facility] Work Phone: Payers Date Payer Category Payer Self-pay [id number] 2023 Private Health Insurance MMO SUP ER[employer] PPO [id number] 2023 Unknown [id number] 2019 Unknown MMO MMO SUPER[employer] PLUS [id number] 2019-Present [phone] [address] [place] [address] PPO [id number] 2019 Unknown [id number] 1974 Unknown [id number] 1974 Unknown [id number] 1974 Unknown [id number] Unknown [id number] Unknown [id number] Social History Date Type Detail Facility Start: 07-27-2019 End: 07-06-2022 Tobacco smoking status GAIS Never smoked tobacco [facility] Work Phone: Comment on above: No smoke exposure Start: 02-12-2022 End: 07-14-2025 Alcohol intake Current drinker of alcohol (finding) [facility] Start: 09-16-2020 History SDOH Alcohol Frequency 4 [facility] Start: 09-16-2020 End: 03-15-2023 History SDOH Alcohol Std Drinks 1 [facility] Start: 09-16-2020 End: 03-15-2023 History SDOH Alcohol Binge 2 [facility] Start: 09-11-2013 History SDOH Alcohol Comment OCCASIONALLY, once per week [facility] Start: 09-16-2020 End: 03-15-2023 History SDOH Social Connections Meetings 3 [facility] Start: 09-16-2020 End: 03-15-2023 History SDOH Physical Activity DPW 5 [facility] Start: 09-16-2020 Education 18 [facility] Start: 1975 Sex Assigned At Female C [facility] Start: 10-25-2020 End: 08-13-2022 Exposure to SARS-CoV-2 (event) Not sure [facility] Work Phone: Start: 07-06-2022 Tobacco use and exposure Smoke less tobacco non-user [facility] Work Phone: Start: 03-29-2022 End: 09-10-2022 Tobacco smoking status NHIS Unknown if ever smoked [facility] Start: 03-15-2023 End: 07-23-2024 History of Social function [facility] Start: 03-15-2023 End: 07-23-2024 Social connection and isolation panel [facility] Do you belong to any clubs or organizations such as cheondoism groups, unions, fraternal or athletic groups, or school groups? Yes [facility] Are you now , , , , never or living with a partner? [facility] How often to you hav e a drink containing alcohol? 4 or more times a week [facility] How many standard dr inks containing alcohol do you have on a typical day? 1 or 2 [facility] How often do you hav e 6 or more drinks on 1 occasion? Never [facility] Start: 10-19-2012 How hard is it for y ou to pay for the very basics like food, housing, medical care, and heating Not hard at all [facility] Do you feel stress - tense, restless, nervous, or anxious, or unable to sleep at night because your mind is troubled all the time - these days [OSQ] Only a little [facility] (I/We) worried andie er (my/our) food would run out before (I/we) got money to buy more. Never true [facility] At any time in the p ast 12 months, were you homeless or living in long-term [including now]? No [facility] Start: 07-14-2020 Gender identity Identifies as female gender (finding) [facility] Start: 07-14-2020 Sexual orientation Heterosexual (bert collier) [facility] How often to you hav e a drink containing alcohol? 2-3 time sa week [facility] How often do you hav e 6 or more drinks on 1 occasion? Less than monthly [facility] Do you feel stress - tense, restless, nervous, or anxious, or unable to sleep at night because your mind is troubled all the time - these days [OSQ] Not at all [facility] Medical Equipment Procedure Code Equipment Code Equipment Origin al Text Equipment Identifier Dates Sling Gynecare T vt Exact Gynecological Stress Urinary Incontinence - [id number] Start: 02-26-2022 Goals Date Patient Goal Desired Activity /State Functional Status Date Assessment Result Facility 04-02-2024 Functional Status Up ad britt Ishmael Luis Miguel [facility] 04-02-2024 Functional Status Standard Safet y ID band on, Allergy Band on, Call device within reach, Bed in low position, Wheels locked [facility] 05-02-2022 Functional Status Ambulating in gomez, Ambulating in room, Awake, Bathroom privileges [facility] 05-02-2022 Functional Status Ishmael Bolanos [facility] 01-26-2015 Are you deaf, or do you have serious difficulty hearing No 01/26/2015 4:12 PM EDT Merlene Franco LPN No [facility] 01-26-2015 Are you blind, or do you have serious difficulty seeing, even when wearing glasses No 01/26/2015 4:12 PM EDT Merlene Franco LPN No [facility] 01-26-2015 Do you have serious difficulty walking or climbing stairs No 01/26/2015 4:12 PM EDT Merlene Franco LPN No [facility] 01-26-2015 Do you have difficul ty dressing or bathing No 01/26/2015 4:12 PM EDT Merlene Franco LPN No [facility] 01-26-2015 Because of a physica l, mental, or emotional condition, do you have difficulty doing errands alone such as visiting a physician's office or shopping No 01/26/2015 4:12 PM EDT Merlene Franco LPN No [facility] Mental Status Date Assessment Result Facility 04-02-2024 Mental Status Orientation Oriented x 4 [facility] 04-02-[address] [facility] 09-14-2022 [facility] 05-02-2022 Mental Status Orientation Oriented x 4 [facility] 05-02-[address] [facility] 01-26-2015 Because of a physica l, mental, or emotional condition, do you have serious difficulty concentrating, remembering, or making decisions No 01/26/2015 4:12 PM EDT Merlene Franco LPN No [facility] Clinical Notes 12-03-2013 to 07-14-2025 Patient InstructionsAmanda Ewing PA-C - 07/14/2025 8:29 AM EDTTelephone Encounter - Carol Lebron MD - 04/13/2025 11:39 AM EDTTelephone Encounter - Carol Lebron MD - 04/13/2025 11:39 AM EDT Note Date & Type Note Facility 07-14-2025 Instructions Amanda Ewing PA-C - 07/14/2025 9:04 AM EDT Continue with the gabapentin 300mg twice a day Take nurtec 75mg with start of migraine Follow up in 6 months Headache Preventive Treatment: Please keep in mind that it takes 4-6 weeks for the medication to start working well and 2-3 months at the appropriate dose before deciding if it will be useful or not. If it is not helping at all by this time, then we will discuss other medications to try. Supplements may take 3-6 months until you see full effect. Natural supplements: Magnesium Oxide 500 mg at bed Coenzyme Q10 300 mg in AM Vitamin B2- 200 mg twice a day Feverfew 50 mg twice a day Vitamins and herbs that show potential Magnesium: Magnesium (250 mg twice a day or 500 mg at bed) has a relaxant effect on smooth muscles such as blood vessels. Individuals suffering from frequent or daily headache usually have low magnesium levels which can be increase with daily supplementation of 400-750 mg. Three trials found 40-90% average headache reduction when used as a preventative. Magnesium also demonstrated the benefit in menstrually related migraine. Magnesium is part of the messenger system in the serotonin cascade and it is a good muscle relaxant. It is also useful for constipation which can be a side effect of other medications used to treat migraine. Good sources include nuts, whole grains, and tomatoes. Magnesium comes in many different forms: Magnesium glycinate is a good choice for those with a sensitive stomach who have gastrointestinal side effects such as diarrhea with other forms of magnesium. It is anecdotally also helpful with anxiety and sleep. Magnesium threonate also has low risk of gastrointestinal side effects and anecdotally helpful with cognitive function and brain fog symptoms. Magnesium malate has low gastrointestinal side effects and is reportedly more energizing and anecdotally often helpful in fibromyalgia and chronic fatigue syndrome. Magnesium citrate is one of the most studied, popular, and well-absorbed forms of magnesium. It can also be mixed easily with liquids if you can't take pills. However, it comes with a higher risk of diarrhea and gastrointestinal side effects, although this could be helpful for those with constipation. Magnesium oxide is also well studied, cheap, and often used for heartburn and indigestion. However, it is not well absorbed and can have some laxative side effects as well, so can also be helpful for constipation. Riboflavin (vitamin B 2) 200 mg twice a day. This vitamin assists nerve cells in the production of ATP a principal energy storing molecule. It is necessary for many chemical reactions in the body. There have been at least 3 clinical trials of riboflavin using 400 mg per day all of which suggested that migraine frequency can be decreased. All 3 trials showed significant improvement in over half of migraine sufferers. The supplement is found in bread, cereal, milk, meat, and poultry. Most Americans get more riboflavin than the recommended daily allowance, however riboflavin deficiency is not necessary for the supplements to help prevent headache. Feverfew: Feverfew is a common garden herb cabazon to [place] and popular in [facility] as a treatment for disorders typically controlled by aspirin. The mechanism of action is unknown but is believed to be related to a chemical called parthenolide which helps the body use serotonin more effectively. Serotonin helps prevent migraine and assists with resolution when it occurs. Parthenolide also inhibits the release of histamine which is linked to pain and inflammation. Consistency of active ingredients in different products can be a problem. Some formulations don't have the active ingredient (parthenolide) that prevents migraine. A parthenolide content of 0.2% is generally recommended. Typical dosage is one capsule 3 times a day. Coenzyme Q10: This is present in almost all cells in the body and is critical component for the conversion of energy. Recent studies have shown that a nutritional supplement of CoQ10 can reduce the frequency of migraine attacks by improving the energy production of cells as with riboflavin. Doses of 150 mg twice a day have been shown to be effective. Melatonin: Increasing evidence shows correlation between melatonin secretion and headache conditions. Melatonin supplementation has decreased headache intensity and duration. It is widely used as a sleep aid. Sleep is natures way of dealing with migraine. A dose of 3 mg is recommended to start for headaches including cluster headache. Higher doses up to 15 mg has been reviewed for use in Cluster headache and have been used. The rationale behind using melatonin for cluster is that many theories regarding the cause of Cluster headache center around the disruption of the normal circadian rhythm in the brain. This helps restore the normal circadian rhythm. Chelsy: Chelsy has a small amount of antihistamine and anti-inflammatory action which may help headache. It is primarily used for nausea and may aid in the absorption of other medications. HEADACHE DIET: Foods and beverages which may trigger migraine Note that only 20% of headache patients are food sensitive. You will know if you are food sensitive if you get a headache consistently 20 minutes to 2 hours after eating a certain food. Only cut out a food if it causes headaches, otherwise you might remove foods you enjoy! What matters most for diet is to eat a well balanced healthy diet full of vegetables and low fat protein, and to not miss meals. Chocolate, other sweets ALL cheeses except cottage and cream cheese Dairy products, yogurt, sour cream, ice cream Liver Meat extracts (Bovril, Marmite, meat tenderizers) Meats or fish which have undergone aging, fermenting, pickling or smoking. These include: Hotdogs,salami,Lox,sausage, mortadellas,smoked salmon, pepperoni, Pickled holly Pods of broad carrillo (Danish beans, Greek pea pods, Maltese (ju) beans, kamara and navy beans Ripe avocado, ripe banana Yeast extracts or active yeast preparations such as Goyal's or Maylin's (commercial bakes goods are permitted) Tomato based foods, pizza (lasagna, etc.) MSG (monosodium glutamate) is disguised as many things; look for these common aliases: Monopotassium glutamate Autolysed yeast Hydrolysed protein Sodium caseinate flavorings all natural preservatives Nutrasweet Avoid all other foods that convincingly provoke headaches. Headache Prevention Strategies: 1. Maintain a headache diary; learn to identify and avoid triggers. Common triggers include: Emotional triggers: Emotional/Upset family or friends Emotional/Upset occupation Business reversal/success Anticipation anxiety Crisis-serious Post-crisis periodNew job/position Physical triggers: Vacation Day Weekend Strenuous Exercise High Altitude Location New Move Day Physical Illness Oversleep/Not enough sleep Weather changes Light: Photophobia or light sesnitivity treatment involves a balance between desensitization and reduction in overly strong input. Use dark polarized glasses outside, but not inside. Avoid bright or fluorescent light, but do not dim environment to the point that going into a normally lit room hurts. Consider FL-41 tint lenses, which reduce the most irritating wavelengths without blocking too much light. These can be obtained at [employer] or [employer]: see list above. 2. Limit use of acute treatments (kkpy-ikg-pfyqavb medications, triptans, etc.) to no more than 2 days per week or 10 days per month to prevent medication overuse headache (rebound headache). 3. Follow a regular schedule (including weekends and holidays): Don't skip meals. Eat a balanced diet. 8 hours of sleep nightly. Minimize stress. Exercise 30 minutes per day. Being overweight is associated with a 5 times increased risk of chronic migraine. Keep well hydrated and drink 6-8 glasses of water per day. 4. Initiate non-pharmacologic measures at the earliest onset of your headache. Rest and quiet environment. Relax and reduce stress. Bclepsk9Nlryw is a free mamadou that can instruct you on some simple relaxtion and breathing techniques. Http://[employer] is a free website that provides teaching videos on relaxation. Also, there are many apps that can be downloaded for mindful relaxation. An mamadou called YOGA NIDRA will help walk you through mindfulness. Cold compresses. 5. Don't wait!! Take the maximum allowable dosage of prescribed medication at the first sign of migraine. 6. Compliance: Take prescribed medication regularly as directed and at the first sign of a migraine. 7. Communicate: Call your physician when problems arise, especially if your headaches change, increase in frequency/severity, or become associated with neurological symptoms (weakness, numbness, slurred speech, etc.). 8. Headache/pain management therapies: Consider various complementary methods, including medication, behavioral therapy, psychological counselling, biofeedback, massage therapy, acupuncture, dry needling, and other modalities. Such measures may reduce the need for medications. Counseling for pain management, where patients learn to function and ignore/minimize their pain, seems to work very well. 9. Recommend changing family's attention and focus away from patient's headaches. Instead, emphasize daily activities. If first question of day is 'How are your headaches/Do you have a headache today?', then patient will constantly think about headaches, thus making them worse. Goal is to re-direct attention away from headaches, toward daily activities and other distractions. 10. Helpful Websites: www.AmericanHeadacheSociety.org www.migrainetrust.org www.headaches.org www.migraine.org.uk www.achenet.org 11. HEADACHE EXPECTATIONS: There are many types of headaches, and only a rare few in which complete relief can be expected. In general, there is no cure for headache, especially migraine based headaches. There is nothing available that completely prevents headaches from occurring, breaking through, or having periodic flare-ups and fluctuations. Regardless of what you are using on a daily basis for prevention, episodic headaches should still be expected, and periods where frequency may escalate and fluctuate are unavoidable. There is no quick fix for most headaches. Furthermore, the longer you have had high frequency headaches (such as chronic daily headache), the longer it will likely take to expect any improvement. In fact, some people will never improve, regardless of how many medications or other treatments we try. Our treatment strategy is to evaluate for possible causes of your headache, although testing is usually always normal, even in cases of daily continuous headaches for years. Most types of headache such as migraine are electrical brain disorders (similar to how epilepsy is an electrical brain disorders). Therefore, there is no testing that will reveal this dysfunctional electrical circuitry such on MRI, or other testing. We try to find a medication that may help lessen the frequency and/or severity of your headaches. The goal is not to completely stop them from happening, although if that happens, great! Different people respond to different medications, and some people just don't respond to anything, so it's usually a matter of trying different options. We can not predict if or when exactly you will respond to a treatment that we provide. Preventive headache medications take 4-6 weeks to start working, and 2-3 months to see full effect, assuming you reach an effective dose. Therefore, calling or messaging frequently because you have a headache flare prior to the 3 month kristen is unlikely to change anything, and unfortunately there is nothing available that will expedite this, so please try to avoid this. Our recommendation will generally be to give it adequate time first. If you are unable to wait it out for medications to work, we can also try IV infusions for some temporary relief. O In general, the best that preventive medications or other treatments (including Botox) are able to offer in migraine management (variable in other headache types) is a 50% improvement in frequency and/or severity of headache. That is our goal, and any additional benefit is considered a bonus. Some people do significantly better than this, others do not get close to this. Therefore, if your headaches are not improving by at least 3 months on your preventive strategy, contact us and we can discuss further adjustments. Keep in mind that complete headache cure is not a realistic expectation. Our Team: The nursing staff, and medical assistants are a major part of YOUR TREATMENT TEAM and will be handling your phone calls, [employer] Messages and inquiries, if any. Unless explicitly told otherwise at the time of your office visit, your study results and ensuing treatment plans will be released via The [employer] Quarter and discussed during your follow-up appointment. [employer]: Please ask the schedulers to give you an activation code. The main way of communication is by [employer] rather than phone lines, so if you have not signed up, please do so. [employer] is also the way that you can review your labs and testing. We are not able to contact everyone to tell them results are normal. If you do not hear back from us regarding testing you have had, it should be considered normal or within normal range. If you have any questions about the results, you are free to message us. [employer] is meant for simple questions regarding medications, possible side effects, or other simple straight forward questions in limited sentences, rather than multiple paragraphs of discussion. The 5th Quarter is not meant for, or efficient for these complex questions, extensive questions, extensive medication adjustments, complex new symptoms or concerns. These issues beyond simple questions require a follow up visit with myself, one of our physician assistants, nurse practitioners, or a Virtual Visit via computer or smart phone, as detailed further down. Refills: Please pay attention to when your refills will need to be renewed. Due to the volume of phone calls daily, this could potentially take a few days, although we certainly try to honor your refill requests as soon as we can. You should call at least 1 week in advance of needing a refill to ensure you do not run out of medication. Keep in mind that refill requests on Fridays may not be filled until the following week. In regards to blood work, testing, and radiology reports these are released automatically to the patients. We do not comment on most testing on [facility] in a message or commentary unless there is a concern. You will not receive a message from me of the result unless there is a specific concern of the result I need you to address further in care with us or your primary medical team. Make sure to check your my chart email or mamadou. As an international referral center for syncope, autonomic dysfunction, general neurology, headache care, neuromuscular disease, and other related conditions, seeing patients from across the world, we do not have the resource of time or staffing to address inquiries for accommodations. As such, we do not provide or complete requests for work accommodations, FMLA, disability, or other such forms. We recommend seeking guidance through your primary care provider for these requests. We are happy to provide our office notes from your visits and other tests or evaluations performed through our clinic, which can be made available upon request to assist you with this process. documented in this encounter [facility] 07-14-2025 Note HNO ID: [id number] Author: AMANDA EWING PA-C Service: ? Author Type: Physician Commercial Accountant Type: Progress Notes Filed: 07/14/2025 09:28 Note Text: [facility] for General Neurology Name: Kate Reed Age: [age] year old Gender: female Primary Care Provider: Carol Lebron MD Assessment/Plan: 07/14/2025 - General NeurologyAmanda PA-C ASSESSMENT ASSESSMENT/PLAN: 1. Migraine without aura and without status migrainosus, not intractable - ICD9: 346.10, ICD10: G43.009 (primary diagnosis) 2. Persistent postural-perceptual dizziness - ICD9: 780.4, ICD10: H81.8X9 3. Vestibular migraine - ICD9: 346.80, ICD10: G43.809 Patient with years of headaches and dizziness. Last seen in March where she was restarted on gabapentin which had worked for her in the past. Takes 300mg twice a day and notes near resolution of symptoms. 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 Nurtec works well for her with no side effects. Does report some mild daytime fatigue with the gabapentin when she takes it in the morning but otherwise is doing very well with her current regiment. No new symptoms that would warrant additional workup at this time. Will continue with gabapentin 300 mg twice a day and Nurtec for abortive relief. Does express some interest in possibly coming off gabapentin in the future. Did discuss possibly transitioning Nurtec to a preventative versus other therapies that may be beneficial. Will discuss further at next appointment in 6 months. Amanda Ewing PA-C Encounter Diagnosis ICD-10-CM 1. Migraine without aura and without status migrainosus, not intractable G43.009 2. Persistent postural-perceptual dizziness H81.8X9 3. Vestibular migraine G43.809 Return in about 6 months (around 01/14/2026). Chart, labs,and relevant images reviewed. Chief Complaint:Patient presents with: Follow Up: Tranfer of care Chart Review: Last Filed Values Date of Most Recent Assessment and Plan 04/13/25 Specialty General Neurology Assessment Kate Reed is a 49-year-old female presenting for follow-up primarily due to ongoing dizziness, which she reports occurs more often than not. She describes the dizziness as a persistent rocking or imbalance sensation rather than a spinning vertigo. The symptoms are exacerbated by complex visual environments, significantly impacting her quality of life-for example, she avoids stores and had difficulty attending a recent [employer] game. The dizziness began after a significant vertigo episode in 2018 and has since become chronic. She has been taking Dramamine daily for the past six months, having previously used it on an as-needed basis. She also experiences migraines, which had been well-controlled until she was weaned off Celexa due to a low WBC count. A trial of Wellbutrin was unsuccessful, and she is now back on Celexa 20 mg daily. While off Celexa, she experienced an 11-day migraine, likely worsened by her menstrual cycle. Outside of this episode, her migraines occur approximately once monthly and are responsive to Nurtec, due to triptans (Rizatriptan, Suamtriptan and Naratriptan) which appear to have lost effectiveness. Impression is that her dizziness is consistent with persistent postural-perceptual dizziness (PPPD), likely triggered by the original vertigo episode in 2018. She had previously responded well to gabapentin, and it is recommended she resume gabapentin at 300 mg at bedtime for two weeks, with plans to increase to twice daily. This may also aid in migraine prevention and anxiety management. Nurtec may continue as her rescue medication. It is advised she begin weaning off Dramamine, as chronic use may contribute to vestibular dysfunction. Referral to vestibular therapy is recommended, as is cognitive behavioral therapy with Dr. Childress, given the significant lifestyle impact of her symptoms. Additionally, a prescription for Toradol 10 mg three times daily for 5days was sent in to be used as an emergency measure in the event of another prolonged migraine lasting 3 days or more. She will follow up in three months or sooner if needed. Plan 1. Preventative: Gabapentin taper 2. Abortive: Nurtec 75 mg ODT can be taken once daily as needed to treat an acute migraine. Nurtec will disolve on or underneath your tongue and should be taken at the first sign of a migraine attack. 3. Vestibular therapy 4. Wean off dramamine 5. Consult to psychology- Dr. Childress 6. Keep headache diary/ Use migraine jone mamadou to keep track of headache days 7. Follow up in 3 months HPI: Seen by Jovi Kiser CNP on 04/13/25 for PPPD also with migraines. On celexa 20mg daily. Restarted gabapentin and vestibular therapy. Toradol was given as well. Nurtec for abortive relief for migraines. Patient presents for follow-up appointment for headaches and dizziness. Was restarted on (more content not included)... [facility] 07-14-2025 History of Present illness Narrative Images from the original note were not included. [facility] for General Neurology Name: Kate Reed Age: [age] year old Gender: female Primary Care Provider: Carol Lebron MD Assessment/Plan: 07/14/2025 - General Neurology, Amanda Ewing PA-C ASSESSMENT ASSESSMENT/PLAN: 1. Migraine without aura and without status migrainosus, not intractable - ICD9: 346.10, ICD10: G43.009 (primary diagnosis) 2. Persistent postural-perceptual dizziness - ICD9: 780.4, ICD10: H81.8X9 3. Vestibular migraine - ICD9: 346.80, ICD10: G43.809 Patient with years of headaches and dizziness. Last seen in March where she was restarted on gabapentin which had worked for her in the past. Takes 300mg twice a day and notes near resolution of symptoms. 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 Nurtec works well for her with no side effects. Does report some mild daytime fatigue with the gabapentin when she takes it in the morning but otherwise is doing very well with her current regiment. No new symptoms that would warrant additional workup at this time. Will continue with gabapentin 300 mg twice a day and Nurtec for abortive relief. Does express some interest in possibly coming off gabapentin in the future. Did discuss possibly transitioning Nurtec to a preventative versus other therapies that may be beneficial. Will discuss further at next appointment in 6 months. Amanda Ewing PA-C Encounter Diagnosis ICD-10-CM 1. Migraine without aura and without status migrainosus, not intractable G43.009 2. Persistent postural-perceptual dizziness H81.8X9 3. Vestibular migraine G43.809 Return in about 6 months (around 01/14/2026). Chart, labs,and relevant images reviewed. Chief Complaint:Patient presents with: Follow Up: Tranfer of care Chart Review: Last Filed Values Date of Most Recent Assessment and Plan 04/13/25 Specialty General Neurology Assessment Kate Reed is a 49-year-old female presenting for follow-up primarily due to ongoing dizziness, which she reports occurs more often than not. She describes the dizziness as a persistent rocking or imbalance sensation rather than a spinning vertigo. The symptoms are exacerbated by complex visual environments, significantly impacting her quality of life-for example, she avoids stores and had difficulty attending a recent [employer] game. The dizziness began after a significant vertigo episode in 2018 and has since become chronic. She has been taking Dramamine daily for the past six months, having previously used it on an as-needed basis. She also experiences migraines, which had been well-controlled until she was weaned off Celexa due to a low WBC count. A trial of Wellbutrin was unsuccessful, and she is now back on Celexa 20 mg daily. While off Celexa, she experienced an 11-day migraine, likely worsened by her menstrual cycle. Outside of this episode, her migraines occur approximately once monthly and are responsive to Nurtec, due to triptans (Rizatriptan, Suamtriptan and Naratriptan) which appear to have lost effectiveness. Impression is that her dizziness is consistent with persistent postural-perceptual dizziness (PPPD), likely triggered by the original vertigo episode in 2018. She had previously responded well to gabapentin, and it is recommended she resume gabapentin at 300 mg at bedtime for two weeks, with plans to increase to twice daily. This may also aid in migraine prevention and anxiety management. Nurtec may continue as her rescue medication. It is advised she begin weaning off Dramamine, as chronic use may contribute to vestibular dysfunction. Referral to vestibular therapy is recommended, as is cognitive behavioral therapy with Dr. Childress, given the significant lifestyle impact of her symptoms. Additionally, a prescription for Toradol 10 mg three times daily for 5 days was sent in to be used as an emergency measure in the event of another prolonged migraine lasting 3 days or more. She will follow up in three months or sooner if needed. Plan 1. Preventative: Gabapentin taper 2. Abortive: Nurtec 75 mg ODT can be taken once daily as needed to treat an acute migraine. Nurtec will disolve on or underneath your tongue and should be taken at the first sign of a migraine attack. 3. Vestibular therapy 4. Wean off dramamine 5. Consult to psychology- Dr. Childress 6. Keep headache diary/ Use migraine jone mamadou to keep track of headache days 7. Follow up in 3 months HPI: Seen by Jovi Kiser CNP on 04/13/25 for PPPD also with migraines. On celexa 20mg daily. Restarted gabapentin and vestibular therapy. Toradol was given as well. Nurtec for abortive relief for migraines. Patient presents for follow-up appointment for headaches and dizziness. Was restarted on gabapentin at last appointment in March and since that time has been doing very well. She has been getting maybe 1 migraine a month that is well aborted with Nurtec. Notes that the dizziness is most completely resolved. Occasionally will feel off if once in a while lasting seconds at a time but otherwise feels fine. Does have a little bit of daytime fatigue with gabapentin in the morning but otherwise doing well with no side effects. Notes that her headaches overall started with perimenopause, can occur up to 4-5 times a month lasting 1 to 2 days each. Last migraine was 2 weeks ago when she started her new school year. Notes that the dizziness is described as a room spinning, started after her first vertigo attack in 2019 where she was admitted for multiple days. Dizziness is often triggered by bright lights or loud sounds. Typically last seconds at a time but will come and go throughout the day. Was started on gabapentin at bedtime with near resolution of symptoms. After a while she stopped the gabapentin but her symptoms returned. No new symptoms or concerns today, notes that she is doing very well. Did not do physical therapy because her symptoms significantly improved. Prior meds: Celexa Imitrex Maxalt Nurtec Gabapentin Review of Systems ACTIVE PROBLEM LIST Endometriosis, Site Unspecified Gerd (Gastroesophageal Reflux Disease) Anxiety Vertigo PAST MEDICAL HISTORY Diagnosis Date Anxiety 11/24/2020 Biliary dyskinesia 10/30/2013 Chronic cholecystitis without calculus 12/03/2013 Endometriosis, site unspecified Endometriosis Irregular menstrual cycle Irregular periods IRREGULAR MENSTRUATION Mild dysplasia of cervix (FREDO I) Mixed incontinence Medications: Reviewed Norethindrone Acet-Ethinyl Est (,) 1-20 mg-mcg per tablet Take 1 tablet by mouth once daily. ondansetron (ZOFRAN) 4 mg tablet Take 1 tablet by mouth every 8 hours as needed for nausea/vomiting. citalopram (CELEXA) 20 mg tablet Take 1 tablet by mouth once daily. ASHWAGANDHA EXTRACT ORAL Take 600 mg by mouth once daily. B.animalis,bifid,infantis,long (PROBIOTIC 4X ORAL) Take by mouth once daily. valACYclovir (VALTREX) 500 mg tablet At earliest onset of symptoms take 2 gms , 2 times a day for 1 day cyanocobalamin, vitamin B-12, (VITAMIN B-12 ORAL) Take by mouth once daily. cholecalciferol, vitamin D3, (VITAMIN D3 ORAL) Take by mouth once daily. magnesium carb,citrate,oxide (MAGNESIUM COMPLEX ORAL) Take by mouth once daily. meclizine (ANTIVERT) 25 mg tab Take 1 tablet by mouth once daily as needed. gabapentin (NEURONTIN) 300 mg capsule Take 1 capsule by mouth two times a day for 180 days. rimegepant (NURTEC ODT) 75 mg disintegrating tablet Take 1 tablet by mouth once daily as needed for migraine headache (see administration instructions). No more than 1 dose in 24 hours. Do not swallow whole. Allow tablet to dissolve in mouth. MEDICATION, NON-DATABASE Take by mouth once daily. D3 + k2 vitamin docosahexaenoic acid/epa (FISH OIL ORAL) Take 1,000 mg by mouth once daily. MEDICATION, NON-DATABASE Take 1,200 mg by mouth once daily. Red yeast rice extract MEDICATION, NON-DATABASE Take by mouth once daily. Curcumin and rexveratrol 1 tsp daily MEDICATION, NON-DATABASE Take by mouth once daily. Pre biotic buPROPion (WELLBUTRIN) 75 mg tablet Take 1 tablet by mouth two times a day. NIFEdipine rectal ointment 0.2% (CPD) Apply a pea-sized amount by RECTAL route three times a day. (Patient not taking: Reported on 07/14/2025) medroxyPROGESTERone (PROVERA) 10 mg tablet Take 1 tablet by mouth once daily. FOR 12 DAYS EACH MONTH estradiol (VIVELLE-DOT) 0.075 mg/24 hr patch Use twice weekly on abdomen or buttock ALLERGIES Allergen Reactions Erythromycin GI Upset Honey Swelling FAMILY HISTORY Problem Relation Age of Onset other (Fibro-Myalgia) Mother other (Hypoglycemia) Mother Hypertension Maternal Grandmother Stroke Paternal Grandmother Heart Paternal Grandfather Cancer Paternal Aunt OVARIAN Coronary Artery Disease Paternal Uncle Breast Cancer Paternal cousin 50 - 59 Anesthesia Problems No Family History Uterine Cancer No Family History PAST SURGICAL HISTORY Procedure Laterality Date DELIVERY ONLY , low transverse, x 1 COLONOSCOPY FLX DX W/COLLJ SPEC WHEN PFRMD 09/16/2013 Colonoscopy COLPO OF CERVIX INC UPPER VAG 11/2005 ESOPHAGOGASTRODUODENOSCOPY TRANSORAL DIAGNOSTIC 09/16/2013 EGD LAPS ABD PRTM&OMENTUM DX W/WO SPEC BR/WA SPX Laparoscopy LASER ABLATION OF ENDOMETRIOSIS LAPS SURG CHOLECYSTECTOMY W/CHOLANGIOGRAPHY 11/24/2013 PAST SURGICAL HISTORY OF 2000 hemorrhoidectomy, anal fissure PAST SURGICAL HISTORY OF 02/26/2022 Placement of retropubic mid-urethral sling PAST SURGICAL HISTORY OF 10/2024 hemorrhoidectomy Social Hx: @Alcohol Use: Not At Risk (11/10/2024) AUDIT-C Frequency of Alcohol Consumption: 2-3 times a week Average Number of Drinks: 1 or 2 Frequency of Binge Drinking: Never Tobacco Use: Low Risk (04/13/2025) Patient History Smoking Tobacco Use: Never Smokeless Tobacco Use: Never Passive Exposure: Not on file Neurologic Exam Cognitive and Language: Alert and answered questions appropriately. Language was fluent. Cranial Nerves: Extraocular movements were full with no diplopia or nystagmus. Facial strength was symmetric. Motor: Full strength Sensory: No evidence of neglect Coordination: Normal finger to nose and heel to marquis testing bilaterally. Normal gait. Labs: Lab Results Component Value Date WBC 3.46 (L) 05/03/2025 HCT 37.6 05/03/2025 MCV 94.7 05/03/2025 PLT 257 05/03/2025 No results found for: HBA1C Cholesterol, Total Date Value Ref Range Status 01/11/2025 193 <200 mg/dL Final Comment: <200 mg/dL, Desirable 200-239 mg/dL, Borderline high >239 mg/dL, High HDL Cholesterol Date Value Ref Range Status 01/11/2025 52 >39 mg/dL Final Comment: 40-59 mg/dL, Acceptable >59 mg/dL, High: Negative risk factor for coronary heart disease <40 mg/dL, Low: Positive risk factor for coronary heart disease LDL Cholesterol, Calculated Date Value Ref Range Status 01/11/2025 125 (H) <100 mg/dL Final Comment: <100 mg/dL, Optimal 100-129 mg/dL, Near optimal/above optimal 130-159 mg/dL, Borderline high 160-189 mg/dL, High >189 mg/dL, Very high Secondary prevention optimal LDL Cholesterol levels are recommended to be < 70 mg/dL Triglyceride Date Value Ref Range Status 01/11/2025 79 <150 mg/dL Final Comment: <150 mg/dL, Normal 150-199 mg/dL, Borderline high 200-499 mg/dL, High >499 mg/dL, Very high Results for orders placed or performed in visit on 05/03/25 COMPLETE BLOOD COUNT AND DIFFERENTIAL Result Value Ref Range WBC 3.46 (L) 3.70 - 11.00 k/uL RBC 3.97 3.90 - 5.20 m/uL Hemoglobin 12.3 11.5 - 15.5 g/dL Hematocrit 37.6 36.0 - 46.0 % MCV 94.7 80.0 - 100.0 fL MCH 31.0 26.0 - 34.0 pg MCHC 32.7 30.5 - 36.0 g/dL RDW-CV 11.7 11.5 - 15.0 % Platelet Count 257 150 - 400 k/uL MPV 9.8 9.0 - 12.7 fL Neutrophils % 59.7 % Abs Neut 2.07 1.45 - 7.50 k/uL Lymphocytes % 22.0 % Abs Lymph 0.76 (L) 1.00 - 4.00 k/uL Monocytes % 13.3 % Abs [place] 0.46 <0.87 k/uL Eosinophils % 3.8 % Abs Eosin 0.13 <0.46 k/uL Basophils % 0.9 % Abs Baso 0.03 <0.11 k/uL Immature Granulocytes % 0.3 % Abs Immature Gran <0.03 <0.10 k/uL NRBC 0.0 /100 WBC Absolute nRBC <0.01 <0.01 k/uL Diff Type Auto Radiology: MRI Head/Brain - Last 2 Impressions MRI BRAIN WO/W IVCON Exam End: 09/28/2022 11:15 AM (Final result) Impression: IMPRESSION: Normal MRI of the brain without and with contrast. Normal MRI of the cervical spine without contrast.... and MRI Spine - Last 2 Impressions MRI CERVICAL SPINE WO IVCON Exam End: 09/28/2022 11:15 AM (Final result) Impression: IMPRESSION: Normal MRI of the brain without and with contrast. Normal MRI of the cervical spine without contrast. Cost Accounting Analyst: PSCB Transcribe Date/Time: Sep 28 2022 11:22A Dictated by : ERICK MARCANO MD This examination was interpreted and the report reviewed and electronically signed by: ERICK MARCANO MD on Sep 28 2022 11:24AM EST This note was dictated using [employer] speech recognition software and may contain some errors that were a result of the program not accurately transcribing what was dictated, despite efforts to make corrections. Note that unless urgent, test and MRI results will be discussed at next follow-up visit. PROMIS (Patient-Reported Outcomes Measurement Information System) is a set of person-centered measures that evaluates and monitors physical, social, and emotional health. It can be used with the general population and with individuals living with chronic conditions. PROMIS 10: PHYSICAL AND MENTAL HEALTH: 04/05/2025 PHQ-9 PHQ-2 Score 0 I spent a total of 40 minutes on the date of the service which included preparing to see the patient, [id number] patient care, completing clinical documentation, obtaining and/or reviewing separately obtained history, performing a medically appropriate examination, counseling and educating the patient/family/caregiver, and ordering medications, tests, or procedures. Recording using [employer] software for draft documentation of the visit was discussed with the patient/authorized sales representative uniforms; all questions welcomed and answered. Patient/authorized sales representative uniforms agreed to proceed documented in this encounter [facility] 04-13-2025 Telephone encounter Note Rx medication for patients travel [facility] 04-13-2025 Miscellaneous Notes Rx medication for patients travel documented in this encounter [facility] 04-13-2025 Instructions Jovi Kiser APRN.INDUCTION COORDINATION ENGINEER - 04/13/2025 10:47 AM EDT Preventative: Gabapentin taper Abortive: Nurtec 75 mg ODT can be taken once daily as needed to treat an acute migraine. Nurtec will disolve on or underneath your tongue and should be taken at the first sign of a migraine attack. Vestibular therapy Wean off dramamine Consult to psychology- Dr. Childress Keep headache diary/ Use migraine jone mamadou to keep track of headache days Get adequate sleep: A person should try to go to sleep and wake up at regular times and resist the urge to oversleep on the weekends. Most adults require at least 7 hours Engaging in regular physical activity: Exercising several times a week can help reduce stress and improve or maintain physical fitness. Improving posture: If poor posture is the cause of a person s headaches, they may benefit from sitting up straight and ensuring that the lower back is properly supported. It is best to avoid sitting in the same position for too long and to take regular breaks from sitting at desks and looking at screens. Moderating caffeine intake: Although too much caffeine can cause headaches, quitting suddenly can also have this effect, particularly if a person has habitually consumed large amounts of caffeine. Limit caffeine to 1-2, 8 oz cups per day or less (300 mg) Limit diet sodas to 12 oz or less per day. Avoid other sources of nutrasweet. Avoid dietary triggers. (list given to pt) Eat regular, frequent small meals. Drinking plenty of water: By taking care to stay hydrated throughout the day, people can avoid a dehydration headache. Drink at least 6-8, 8 oz glasses of water daily. Avoiding frequent use of pain relievers: The overuse of medication to manage headaches -- which usually means taking pain relievers on 10 or more days of the month -- can cause rebound headaches. Follow up in 3 months GABAPENTIN For patient: This medication works well for multiple things (chronic pain, nerve pain, headaches, vertigo, anxiety, sleep). Take one 300 mg capsule at bedtime. If tolerating with minimal side effects, can increase to 300mg twice daily. Most common side effect of gabapentin is dizziness / drowsiness in the first few weeks. Some studies have showed increased emotional lability, and sometimes even suicidal thoughts. This is a low risk but please let me know immediately if this is a side effect you experience. Like all medications, there is a risk of allergic reaction. Headache Preventive Treatment: Please keep in mind that it takes 4-6 weeks for the medication to start working well and 2-3 months at the appropriate dose before deciding if it will be useful or not. If it is not helping at all by this time, then we will discuss other medications to try. Supplements may take 3-6 months until you see full effect. Natural supplements: Magnesium Oxide 500 mg at bed Coenzyme Q10 300 mg in AM Vitamin B2- 200 mg twice a day Feverfew 50 mg twice a day Add only 1 supplement at a time since even natural supplements can have undesirable side effects. You can sometimes buy supplements cheaper (especially Coenzyme Q10) at www.[employer] or at [employer]. Vitamins and herbs that show potential Magnesium: Magnesium (250 mg twice a day or 500 mg at bed) has a relaxant effect on smooth muscles such as blood vessels. Individuals suffering from frequent or daily headache usually have low magnesium levels which can be increase with daily supplementation of 400-750 mg. Three trials found 40-90% average headache reduction when used as a preventative. Magnesium also demonstrated the benefit in menstrually related migraine. Magnesium is part of the messenger system in the serotonin cascade and it is a good muscle relaxant. It is also useful for constipation which can be a side effect of other medications used to treat migraine. Good sources include nuts, whole grains, and tomatoes. Magnesium comes in many different forms: Magnesium glycinate is a good choice for those with a sensitive stomach who have gastrointestinal side effects such as diarrhea with other forms of magnesium. It is anecdotally also helpful with anxiety and sleep. Magnesium threonate also has low risk of gastrointestinal side effects and anecdotally helpful with cognitive function and brain fog symptoms. Magnesium malate has low gastrointestinal side effects and is reportedly more energizing and anecdotally often helpful in fibromyalgia and chronic fatigue syndrome. Magnesium citrate is one of the most studied, popular, and well-absorbed forms of magnesium. It can also be mixed easily with liquids if you can't take pills. However, it comes with a higher risk of diarrhea and gastrointestinal side effects, although this could be helpful for those with constipation. Magnesium oxide is also well studied, cheap, and often used for heartburn and indigestion. However, it is not well absorbed and can have some laxative side effects as well, so can also be helpful for constipation. Riboflavin (vitamin B 2) 200 mg twice a day. This vitamin assists nerve cells in the production of ATP a principal energy storing molecule. It is necessary for many chemical reactions in the body. There have been at least 3 clinical trials of riboflavin using 400 mg per day all of which suggested that migraine frequency can be decreased. All 3 trials showed significant improvement in over half of migraine sufferers. The supplement is found in bread, cereal, milk, meat, and poultry. Most Americans get more riboflavin than the recommended daily allowance, however riboflavin deficiency is not necessary for the supplements to help prevent headache. Feverfew: Feverfew is a common garden herb cabazon to [place] and popular in [place] as a treatment for disorders typically controlled by aspirin. The mechanism of action is unknown but is believed to be related to a chemical called parthenolide which helps the body use serotonin more effectively. Serotonin helps prevent migraine and assists with resolution when it occurs. Parthenolide also inhibits the release of histamine which is linked to pain and inflammation. Consistency of active ingredients in different products can be a problem. Some formulations don't have the active ingredient (parthenolide) that prevents migraine. A parthenolide content of 0.2% is generally recommended. Typical dosage is one capsule 3 times a day. Coenzyme Q10: This is present in almost all cells in the body and is critical component for the conversion of energy. Recent studies have shown that a nutritional supplement of CoQ10 can reduce the frequency of migraine attacks by improving the energy production of cells as with riboflavin. Doses of 150 mg twice a day have been shown to be effective. Melatonin: Increasing evidence shows correlation between melatonin secretion and headache conditions. Melatonin supplementation has decreased headache intensity and duration. It is widely used as a sleep aid. Sleep is natures way of dealing with migraine. A dose of 3 mg is recommended to start for headaches including cluster headache. Higher doses up to 15 mg has been reviewed for use in Cluster headache and have been used. The rationale behind using melatonin for cluster is that many theories regarding the cause of Cluster headache center around the disruption of the normal circadian rhythm in the brain. This helps restore the normal circadian rhythm. Chelsy: Chelsy has a small amount of antihistamine and anti-inflammatory action which may help headache. It is primarily used for nausea and may aid in the absorption of other medications. HEADACHE DIET: Foods and beverages which may trigger migraine Note that only 20% of headache patients are food sensitive. You will know if you are food sensitive if you get a headache consistently 20 minutes to 2 hours after eating a certain food. Only cut out a food if it causes headaches, otherwise you might remove foods you enjoy! What matters most for diet is to eat a well balanced healthy diet full of vegetables and low fat protein, and to not miss meals. Chocolate, other sweets ALL cheeses except cottage and cream cheese Dairy products, yogurt, sour cream, ice cream Liver Meat extracts (Bovril, Marmite, meat tenderizers) Meats or fish which have undergone aging, fermenting, pickling or smoking. These include: Hotdogs,salami,Lox,sausage, mortadellas,smoked salmon, pepperoni, Pickled holly Pods of broad carrillo (Danish beans, Greek pea pods, Maltese (ju) beans, kamara and navy beans Ripe avocado, ripe banana Yeast extracts or active yeast preparations such as Goyal's or Maylin's (commercial bakes goods are permitted) Tomato based foods, pizza (lasagna, etc.) MSG (monosodium glutamate) is disguised as many things; look for these common aliases: Monopotassium glutamate Autolysed yeast Hydrolysed protein Sodium caseinate flavorings all natural preservatives Nutrasweet Avoid all other foods that convincingly provoke headaches. Headache Prevention Strategies: 1. Maintain a headache diary; learn to identify and avoid triggers. Common triggers include: Emotional triggers: Emotional/Upset family or friends Emotional/Upset occupation Business reversal/success Anticipation anxiety Crisis-serious Post-crisis periodNew job/position Physical triggers: Vacation Day Weekend Strenuous Exercise High Altitude Location New Move Menstrual Day Physical Illness Oversleep/Not enough sleep Weather changes Light: Photophobia or light sesnitivity treatment involves a balance between desensitization and reduction in overly strong input. Use dark polarized glasses outside, but not inside. Avoid bright or fluorescent light, but do not dim environment to the point that going into a normally lit room hurts. Consider FL-41 tint lenses, which reduce the most irritating wavelengths without blocking too much light. These can be obtained at [employer] or [employer]: see list above. 2. Limit use of acute treatments (cmde-vzx-mjxafvz medications, triptans, etc.) to no more than 2 days per week or 10 days per month to prevent medication overuse headache (rebound headache). 3. Follow a regular schedule (including weekends and holidays): Don't skip meals. Eat a balanced diet. 8 hours of sleep nightly. Minimize stress. Exercise 30 minutes per day. Being overweight is associated with a 5 times increased risk of chronic migraine. Keep well hydrated and drink 6-8 glasses of water per day. 4. Initiate non-pharmacologic measures at the earliest onset of your headache. Rest and quiet environment. Relax and reduce stress. Kcgnchy4Qzqfh is a free mamadou that can instruct you on some simple relaxtion and breathing techniques. Http://[employer] is a free website that provides teaching videos on relaxation. Also, there are many apps that can be downloaded for mindful relaxation. An mamadou called YOGA NIDRA will help walk you through mindfulness. Cold compresses. 5. Don't wait!! Take the maximum allowable dosage of prescribed medication at the first sign of migraine. 6. Compliance: Take prescribed medication regularly as directed and at the first sign of a migraine. 7. Communicate: Call your physician when problems arise, especially if your headaches change, increase in frequency/severity, or become associated with neurological symptoms (weakness, numbness, slurred speech, etc.). 8. Headache/pain management therapies: Consider various complementary methods, including medication, behavioral therapy, psychological counselling, biofeedback, massage therapy, acupuncture, dry needling, and other modalities. Such measures may reduce the need for medications. Counseling for pain management, where patients learn to function and ignore/minimize their pain, seems to work very well. 9. Recommend changing family's attention and focus away from patient's headaches. Instead, emphasize daily activities. If first question of day is 'How are your headaches/Do you have a headache today?', then patient will constantly think about headaches, thus making them worse. Goal is to re-direct attention away from headaches, toward daily activities and other distractions. 10. Helpful Websites: www.AmericanHeadacheSociety.org www.migrainetrust.org www.headaches.org www.migraine.org.uk www.achenet.org 11. HEADACHE EXPECTATIONS: There are many types of headaches, and only a rare few in which complete relief can be expected. In general, there is no cure for headache, especially migraine based headaches. There is nothing available that completely prevents headaches from occurring, breaking through, or having periodic flare-ups and fluctuations. Regardless of what you are using on a daily basis for prevention, episodic headaches should still be expected, and periods where frequency may escalate and fluctuate are unavoidable. There is no quick fix for most headaches. Furthermore, the longer you have had high frequency headaches (such as chronic daily headache), the longer it will likely take to expect any improvement. In fact, some people will never improve, regardless of how many medications or other treatments we try. Our treatment strategy is to evaluate for possible causes of your headache, although testing is usually always normal, even in cases of daily continuous headaches for years. Most types of headache such as migraine are electrical brain disorders (similar to how epilepsy is an electrical brain disorders). Therefore, there is no testing that will reveal this dysfunctional electrical circuitry such on MRI, or other testing. We try to find a medication that may help lessen the frequency and/or severity of your headaches. The goal is not to completely stop them from happening, although if that happens, great! Different people respond to different medications, and some people just don't respond to anything, so it's usually a matter of trying different options. We can not predict if or when exactly you will respond to a treatment that we provide. Preventive headache medications take 4-6 weeks to start working, and 2-3 months to see full effect, assuming you reach an effective dose. Therefore, calling or messaging frequently because you have a headache flare prior to the 3 month kristen is unlikely to change anything, and unfortunately there is nothing available that will expedite this, so please try to avoid this. Our recommendation will generally be to give it adequate time first. If you are unable to wait it out for medications to work, we can also try IV infusions for some temporary relief. O In general, the best that preventive medications or other treatments (including Botox) are able to offer in migraine management (variable in other headache types) is a 50% improvement in frequency and/or severity of headache. That is our goal, and any additional benefit is considered a bonus. Some people do significantly better than this, others do not get close to this. Therefore, if your headaches are not improving by at least 3 months on your preventive strategy, contact us and we can discuss further adjustments. Keep in mind that complete headache cure is not a realistic expectation. Our Team: The nursing staff, and medical assistants are a major part of YOUR TREATMENT TEAM and will be handling your phone calls and inquiries, if any. Unless explicitly told otherwise at the time of your office visit, your study results and ensuing treatment plans will be released via The 5th Quarter and discussed during your follow-up appointment. The 5th Quarter: Please ask the schedulers to give you an activation code. The main way of communication is by The 5[employer] Quarter rather than phone lines, so if you have not signed up, please do so. The 5th Quarter is also the way that you can review your labs and testing. We are not able to contact everyone to tell them results are normal. If you do not hear back from us regarding testing you have had, it should be considered normal or within normal range. If you have any questions about the results, you are free to message us. WorldTVhart is meant for simple questions regarding medications, possible side effects, or other simple straight forward questions in limited sentences, rather than multiple paragraphs of discussion. WorldTV[employer] is not meant for, or efficient for these complex questions, extensive questions, extensive medication adjustments, complex new symptoms or concerns. These issues beyond simple questions require a follow up visit with myself, one of our physician assistants, nurse practitioners, or a Virtual Visit via computer or smart phone, as detailed further down. Refills: Please pay attention to when your refills will need to be renewed. Due to the volume of phone calls daily, this could potentially take a few days, although we certainly try to honor your refill requests as soon as we can. You should call at least 1 week in advance of needing a refill to ensure you do not run out of medication. Keep in mind that refill requests on Fridays may not be filled until the following week. The Headache and Facial [facility] Section does not complete disability or any other insurance-related forms/documention. We will complete FMLA forms. All of the office notes, study results, and other pertinent documentation generated as part of your evaluation will be available to you and to your Primary Care Physician (PCP). Use of this material to complete such forms will be at the discretion of your PCP/referring physician. In regards to blood work, testing, and radiology reports these are released automatically to the patients. We do not comment on most testing on Keystokhart in a message or commentary unless there is a concern. You will not receive a message from me of the result unless there is a specific concern of the result I need you to address further in care with us or your primary medical team. Make sure to check your my chart email or mamadou. documented in this encounter [facility] 04-13-2025 Note HNO ID: [id number] Author: JOVI KISER APRN.CNP Service: ? Author Type: Nurse Practitioner Type: Progress Notes Filed: 04/13/2025 12:31 Note Text: [facility] for General Neurology Name: Kate Reed Age: [age] year old Gender: female Primary Care Provider: Carol Lebron MD 04/13/2025 - General Neurology, Jovi Kiser APRN.INDUCTION COORDINATION ENGINEER ASSESSMENT Kate Reed is a 49-year-old female presenting for follow-up primarily due to ongoing dizziness, which she reports occurs more often than not. She describes the dizziness as a persistent rocking or imbalance sensation rather than a spinning vertigo. The symptoms are exacerbated by complex visual environments, significantly impacting her quality of life-for example, she avoids stores and had difficulty attending a recent [employer] game. The dizziness began after a significant vertigo episode in 2018 and has since become chronic. She has been taking Dramamine daily for the past six months, having previously used it on an as-needed basis. She also experiences migraines, which had been well-controlled until she was weaned off Celexa due to a low WBC count. A trial of Wellbutrin was unsuccessful, and she is now back on Celexa 20 mg daily. While off Celexa, she experienced an 11-day migraine, likely worsened by her menstrual cycle. Outside of this episode, her migraines occur approximately once monthly and are responsive to Nurtec, due to triptans (Rizatriptan, Suamtriptan and Naratriptan) which appear to have lost effectiveness. Impression is that her dizziness is consistent with persistent postural-perceptual dizziness (PPPD), likely triggered by the original vertigo episode in 2018. She had previously responded well to gabapentin, and it is recommended she resume gabapentin at 300 mg at bedtime for two weeks, with plans to increase to twice daily. This may also aid in migraine prevention and anxiety management. Nurtec may continue as her rescue medication. It is advised she begin weaning off Dramamine, as chronic use may contribute to vestibular dysfunction. Referral to vestibular therapy is recommended, as is cognitive behavioral therapy with Dr. Childress, given the significant lifestyle impact of her symptoms. Additionally, a prescription for Toradol 10 mg three times daily for 5days was sent in to be used as an emergency measure in the event of another prolonged migraine lasting 3 days or more. She will follow up in three months or sooner if needed. PLAN 1. Preventative: Gabapentin taper 2. Abortive: Nurtec 75 mg ODT can be taken once daily as needed to treat an acute migraine. Nurtec will disolve on or underneath your tongue and should be taken at the first sign of a migraine attack. 3. Vestibular therapy 4. Wean off dramamine 5. Consult to psychology- Dr. Childress 6. Keep headache diary/ Use migraine jone mamadou to keep track of headache days 7. Follow up in 3 months Encounter Diagnosis ICD-10-CM 1. Persistent postural-perceptual dizziness H81.8X9 CONSULT TO PSYCHOLOGY CONSULT TO PHYSICAL THERAPY 2. Migraine without aura and without status migrainosus, not intractable G43.009 Kate Reed has been previously approved for an Oral Calcitonin Gene-Related Peptide Receptor Antagonist (GEPANT) Rimegepant for the treatment of abortive use. The patient has demonstrated the following: Provider attests patient has had a positive clinical response: Yes Patient will not use with another Oral Calcitonin Gene-Related Peptide Receptor Antagonist (GEPANT): No Patient's quality of life and ability to perform ADLs has improved: Yes The patient has tried and failed the following : Naratriptan Rizatriptan Sumatriptan We suggest the patient continue treatment with GEPANT Rimegepant. The following preventative medications have been tried for three or more months without benefit: Topamax (side effects) Gabapentin Celexa The following abortive medications have been tried but require high frequency use which can lead to Medication Overuse Headache: Naratriptan Rizatriptan Sumatriptan Return in about 3 months (around 07/14/2025), or if symptoms worsen or fail to improve- Follow up with Amanda Ewing PA-C. Chart, labs,and relevant images reviewed. Chief Complaint:Patient presents with: Migraine: Started years ago. This last one started the March 31 and lasted 11 days. Is taking Nurtec. Was on Rizotriptan. Dizziness: Going on since 2018, when her initial episode started. Has them more days than she doesn't. She experienced vertigo back then. Feels off balance. Chart Review: 11/14/22 (G43.829) Menstrual migraine without status migrainosus, not intractable (primary encounter diagnosis) (R42) Migrainous dizziness Kate Reed is a 47 year old female with history of vertigo with uncertain etiology (potential viral correlation with history of shingles) and menstrual migraines. Her neurological examina (more content not included)... [facility] 04-13-2025 History of Present illness Narrative Images from the original note were not included. [facility] for [facility] Neurology Name: Kate Reed Age: [age] year old Gender: female Primary Care Provider: Carol Lebron MD 04/13/2025 - General Neurology, Jovi Kiser APRN.INDUCTION COORDINATION ENGINEER ASSESSMENT Kate Reed is a 49-year-old female presenting for follow-up primarily due to ongoing dizziness, which she reports occurs more often than not. She describes the dizziness as a persistent rocking or imbalance sensation rather than a spinning vertigo. The symptoms are exacerbated by complex visual environments, significantly impacting her quality of life-for example, she avoids stores and had difficulty attending a recent [employer] game. The dizziness began after a significant vertigo episode in 2018 and has since become chronic. She has been taking Dramamine daily for the past six months, having previously used it on an as-needed basis. She also experiences migraines, which had been well-controlled until she was weaned off Celexa due to a low WBC count. A trial of Wellbutrin was unsuccessful, and she is now back on Celexa 20 mg daily. While off Celexa, she experienced an 11-day migraine, likely worsened by her menstrual cycle. Outside of this episode, her migraines occur approximately once monthly and are responsive to Nurtec, due to triptans (Rizatriptan, Suamtriptan and Naratriptan) which appear to have lost effectiveness. Impression is that her dizziness is consistent with persistent postural-perceptual dizziness (PPPD), likely triggered by the original vertigo episode in 2018. She had previously responded well to gabapentin, and it is recommended she resume gabapentin at 300 mg at bedtime for two weeks, with plans to increase to twice daily. This may also aid in migraine prevention and anxiety management. Nurtec may continue as her rescue medication. It is advised she begin weaning off Dramamine, as chronic use may contribute to vestibular dysfunction. Referral to vestibular therapy is recommended, as is cognitive behavioral therapy with Dr. Childress, given the significant lifestyle impact of her symptoms. Additionally, a prescription for Toradol 10 mg three times daily for 5 days was sent in to be used as an emergency measure in the event of another prolonged migraine lasting 3 days or more. She will follow up in three months or sooner if needed. PLAN 1. Preventative: Gabapentin taper 2. Abortive: Nurtec 75 mg ODT can be taken once daily as needed to treat an acute migraine. Nurtec will disolve on or underneath your tongue and should be taken at the first sign of a migraine attack. 3. Vestibular therapy 4. Wean off dramamine 5. Consult to psychology- Dr. Childress 6. Keep headache diary/ Use migraine jone mamadou to keep track of headache days 7. Follow up in 3 months Encounter Diagnosis ICD-10-CM 1. Persistent postural-perceptual dizziness H81.8X9 CONSULT TO PSYCHOLOGY CONSULT TO PHYSICAL THERAPY 2. Migraine without aura and without status migrainosus, not intractable G43.009 Kate Kalpana Reed has been previously approved for an Oral Calcitonin Gene-Related Peptide Receptor Antagonist (GEPANT) Rimegepant for the treatment of abortive use. The patient has demonstrated the following: Provider attests patient has had a positive clinical response: Yes Patient will not use with another Oral Calcitonin Gene-Related Peptide Receptor Antagonist (GEPANT): No Patient's quality of life and ability to perform ADLs has improved: Yes The patient has tried and failed the following : Naratriptan Rizatriptan Sumatriptan We suggest the patient continue treatment with GEPANT Rimegepant. The following preventative medications have been tried for three or more months without benefit: Topamax (side effects) Gabapentin Celexa The following abortive medications have been tried but require high frequency use which can lead to Medication Overuse Headache: Naratriptan Rizatriptan Sumatriptan Return in about 3 months (around 07/14/2025), or if symptoms worsen or fail to improve- Follow up with Amanda Ewing PA-C. Chart, labs,and relevant images reviewed. Chief Complaint:Patient presents with: Migraine: Started years ago. This last one started the March 31 and lasted 11 days. Is taking Nurtec. Was on Rizotriptan. Dizziness: Going on since 2018, when her initial episode started. Has them more days than she doesn't. She experienced vertigo back then. Feels off balance. Chart Review: 11/14/22 (G43.829) Menstrual migraine without status migrainosus, not intractable (primary encounter diagnosis) (R42) Migrainous dizziness Kate Reed is a 47 year old female with history of vertigo with uncertain etiology (potential viral correlation with history of shingles) and menstrual migraines. Her neurological examination is limited due to virtual encounter. Since our last visit, she went to vestibular rehab and they were unable to reproduce her symptoms of dizziness during the visit. Symptoms of dizziness believed to be associated with migraines. Patient at the time was hesitant to start Gabapentin for headache prevention and dizziness. However, had reached out a few weeks ago expressing interest as her dizziness was not improved. She has since started Gabapentin 300mg at bedtime and has noticed a significant difference in her dizziness. Tolerating medication with little side effects, only noted side effect is slight daytime grogginess. Suggested to take a couple of hours before bedtime to improve daytime grogginess. She has correlated that the dizziness is always associated with menstrual cycle, typically occurs two days prior to cycle starting. Dizziness is off and all day, but only occurring one day vs the whole month. Still having menstrual related migraines but has noticed decreased intensity with the Gabapentin and naratriptan combination. Recommended continuing medication for symptom management and to follow up in 2-3 months with myself or Dr. Smith. Plan: Continue Gabapentin 300mg at bedtime for migraine prevention and dizziness Can continue rizatriptan and naratriptan for migraines (patient aware to not take at same time, naratriptan for menstrual migraines only) Follow up in 2-3 months 12/07/22- [facility] Assessment and Plan: ASSESSMENT/PLAN: 1. Menstrual migraine without status migrainosus, not intractable - ICD9: 346.40, ICD10: G43.829 (primary diagnosis) 2. Migrainous dizziness - ICD9: 780.4, ICD10: R42 Patient doing well on Amerge as Rx'd above during menses as well as gabapentin 300mg QHS. As patient now down to Topamax 25mg QAM, will try to stop given effectiveness of these other medications. Rarely needing Maxalt and thus not needing refills (knows never to take Maxalt and Amerge on same day). Discussed possibly stopping gabapentin, but in setting of stopping Topamax, feel best that we continue gabapentin for now. SE and ADRs d/w pt. Refills provided. Follow up 6 months. Frandy Smith MD HPI: Reports she has more dizzy days then she has not dizzy days. Taking dramamine daily and has been for the past 6 months, prior to that was taking more on an as needed basis. Describes dizziness as an odd balanced rocking sensation. Does not a spinning sensation like true vertigo. Will last almost the whole day when she has it. Position doesn't matter. Dizziness is worse in complex visual environments. Doesn't go to stores anymore. Went to the [employer] game and almost had to walk out due to increase in symptoms. Symptoms all started with a bad episode of vertigo back in 2018. Additionally, she is having migraines. Was doing really well. However, PCP had noticed decrease in WBC while on Celexa. Was weaned off and attempted to transition to Wellbutrin but did not well. Now back on 20mg of Celexa. When she was completely off Celexa she had a 11 day migraine. In addition, was on her menstrual cycle which did not help. Aside from that long migraine, she is not having them super frequent, maybe once per month (sometimes more with her cycle). Was taking Rizatriptan. Which suspected to have lost efficacy. Nurtec was then prescribed, nurtec is effective for migraines but not effective for dizziness. Review of Systems ACTIVE PROBLEM LIST Endometriosis, Site Unspecified Gerd (Gastroesophageal Reflux Disease) Anxiety Vertigo PAST MEDICAL HISTORY Diagnosis Date Anxiety 11/24/2020 Biliary dyskinesia 10/30/2013 Chronic cholecystitis without calculus 12/03/2013 Endometriosis, site unspecified Endometriosis Irregular menstrual cycle Irregular periods IRREGULAR MENSTRUATION Mild dysplasia of cervix (FREDO I) Mixed incontinence Medications: Reviewed Norethindrone Acet-Ethinyl Est (12/07, ,) 1-20 mg-mcg per tablet Take 1 tablet by mouth once daily. ondansetron (ZOFRAN) 4 mg tablet Take 1 tablet by mouth every 8 hours as needed for nausea/vomiting. citalopram (CELEXA) 20 mg tablet Take 1 tablet by mouth once daily. MEDICATION, NON-DATABASE Take by mouth once daily. D3 + k2 vitamin docosahexaenoic acid/epa (FISH OIL ORAL) Take 1,000 mg by mouth once daily. MEDICATION, NON-DATABASE Take 1,200 mg by mouth once daily. Red yeast rice extract ASHWAGANDHA EXTRACT ORAL Take 600 mg by mouth once daily. MEDICATION, NON-DATABASE Take by mouth once daily. Curcumin and rexveratrol 1 tsp daily B.animalis,bifid,infantis,long (PROBIOTIC 4X ORAL) Take by mouth once daily. MEDICATION, NON-DATABASE Take by mouth once daily. Pre biotic NIFEdipine rectal ointment 0.2% (CPD) Apply a pea-sized amount by RECTAL route three times a day. valACYclovir (VALTREX) 500 mg tablet At earliest onset of symptoms take 2 gms , 2 times a day for 1 day cyanocobalamin, vitamin B-12, (VITAMIN B-12 ORAL) Take by mouth once daily. cholecalciferol, vitamin D3, (VITAMIN D3 ORAL) Take by mouth once daily. magnesium carb,citrate,oxide (MAGNESIUM COMPLEX ORAL) Take by mouth once daily. meclizine (ANTIVERT) 25 mg tab Take 1 tablet by mouth once daily as needed. gabapentin (NEURONTIN) 300 mg capsule Take 1 capsule by mouth daily at bedtime for 14 days, THEN 1 capsule two times a day for 90 days. rimegepant (NURTEC ODT) 75 mg disintegrating tablet Take 1 tablet by mouth once daily as needed for migraine headache (see administration instructions). No more than 1 dose in 24 hours. Do not swallow whole. Allow tablet to dissolve in mouth. keTORolac (TORADOL) 10 mg tablet Take 1 tablet by mouth three times a day for 5 days. ALPRAZolam (XANAX) 0.5 mg tablet Take 1 tablet by mouth three times a day as needed for up to 7 days. buPROPion (WELLBUTRIN) 75 mg tablet Take 1 tablet by mouth two times a day. medroxyPROGESTERone (PROVERA) 10 mg tablet Take 1 tablet by mouth once daily. FOR 12 DAYS EACH MONTH estradiol (VIVELLE-DOT) 0.075 mg/24 hr patch Use twice weekly on abdomen or buttock ALLERGIES Allergen Reactions Erythromycin GI Upset Honey Swelling FAMILY HISTORY Problem Relation Age of Onset other (Fibro-Myalgia) Mother other (Hypoglycemia) Mother Hypertension Maternal Grandmother Stroke Paternal Grandmother Heart Paternal Grandfather Cancer Paternal Aunt OVARIAN Coronary Artery Disease Paternal Uncle Breast Cancer Paternal cousin 50 - 59 Anesthesia Problems No Family History Uterine Cancer No Family History PAST SURGICAL HISTORY Procedure Laterality Date DELIVERY ONLY , low transverse, x 1 COLONOSCOPY FLX DX W/COLLJ SPEC WHEN PFRMD 09/16/2013 Colonoscopy COLPO OF CERVIX INC UPPER VAG 11/2005 ESOPHAGOGASTRODUODENOSCOPY TRANSORAL DIAGNOSTIC 09/16/2013 EGD LAPS ABD PRTM&OMENTUM DX W/WO SPEC BR/WA SPX Laparoscopy LASER ABLATION OF ENDOMETRIOSIS LAPS SURG CHOLECYSTECTOMY W/CHOLANGIOGRAPHY 11/24/2013 PAST SURGICAL HISTORY OF 2000 hemorrhoidectomy, anal fissure PAST SURGICAL HISTORY OF 02/26/2022 Placement of retropubic mid-urethral sling PAST SURGICAL HISTORY OF 10/2024 hemorrhoidectomy Social Hx: Alcohol Use: Not At Risk (11/10/2024) AUDIT-C Frequency of Alcohol Consumption: 2-3 times a week Average Number of Drinks: 1 or 2 Frequency of Binge Drinking: Never Tobacco Use: Low Risk (04/13/2025) Patient History Smoking Tobacco Use: Never Smokeless Tobacco Use: Never Passive Exposure: Not on file 04/13/25 0957 BP: 124/70 Pulse: 78 Neurologic Exam Cognitive and Language: Alert and answered questions appropriately. Language was fluent. Cranial Nerves: Facial strength was symmetric. Coordination: . Normal gait. Labs: Lab Results Component Value Date WBC 4.44 04/03/2025 WBC 4.91 09/23/2020 HCT 41.4 04/03/2025 HCT 39.9 09/23/2020 MCV 93.0 04/03/2025 MCV 96.6 09/23/2020 PLT 312 04/03/2025 PLT 333 09/23/2020 Radiology: MRI Report MRI BRAIN WO/W IVCON Exam End: 09/28/2022 11:15 AM (Final result) Narrative: * * *Final Report* * * DATE OF EXAM: Sep 28 2022 11:15AM WR [id number] - MRI BRAIN WO/W IVCON / PROCEDURE REASON: multiple diagnoses * * * * Physician Interpretation * * * * EXAMINATION: MRI BRAIN WO/W IVCON, MRI CERVICAL SPINE WO IVCON HISTORY: Vertigo Migraine without status migrainosus, not intractable, unspecified migraine type Menstrual migraine without status migrainosus, not intractable Cervicalgia TECHNIQUE: Demyelinating brain MRI protocol without and with contrast. Routine cervical spine without contrast. MQ: [id number] Contrast: 15 mL Dotarem IV COMPARISON: None. RESULT: Acute Change: There is no evidence of restricted diffusion to suggest an acute infarct. Hemorrhage: No evidence of prior parenchymal hemorrhage on the available images. Mass Lesion/ Mass Effect: No evidence of an intracranial mass or extra-axial fluid collection. No abnormal parenchymal or leptomeningeal enhancement is noted following contrast administration. No significant mass effect. Chronic Change: The white matter is within normal limits of signal intensity for age. Parenchyma: No significant volume loss for age. The brain parenchyma is otherwise within normal limits of signal intensity and morphology. Ventricles: Normal caliber and morphology. Skull Base: Hypothalamic and pituitary region are grossly normal. Craniocervical junction is normal. No significant marrow replacement process. Vasculature: Major intracranial arterial structures, and dural venous sinuses show typical flow void, suggesting patency by spin echo criteria. Other: The visualized paranasal sinuses and mastoid air cells are clear. The orbits and extracranial soft tissues are unremarkable. Cervical spine: Counting reference: Craniocervical junction. Cervical vertebral bodies maintain normal height and alignment. No destructive osseous process or marrow replacing lesion is detected. Cervical spinal cord signal intensity is normal on all sequences. No cord volume loss. No significant degenerative changes. Canal and foramina are patent at all levels. Soft tissues outside of the cervical spine are unremarkable. Impression: IMPRESSION: Normal MRI of the brain without and with contrast. Normal MRI of the cervical spine without contrast. Cost Accounting Analyst: LEE Transcribe Date/Time: Sep 28 2022 11:22A Dictated by : ERICK MARCANO MD This examination was interpreted and the report reviewed and electronically signed by: ERICK MARCANO MD on Sep 28 2022 11:24AM EST Note that unless urgent, test and MRI results will be discussed at next follow-up visit. PROMIS (Patient-Reported Outcomes Measurement Information System) is a set of person-centered measures that evaluates and monitors physical, social, and emotional health. It can be used with the general population and with individuals living with chronic conditions. PROMIS 10: PHYSICAL AND MENTAL HEALTH: 04/05/2025 PHQ-9 PHQ-2 Score 0 I spent a total of 45 minutes on the date of the service which included preparing to see the patient, [id number] patient care, completing clinical documentation, obtaining and/or reviewing separately obtained history, counseling and educating the patient/family/caregiver, ordering medications, tests, or procedures, communicating with other HCPs (not separately reported), and care coordination (not separately reported). Jovi Kiser APRN.[facility] [address] [place] [address] Appointment: [phone] In regards to blood work, testing, and radiology reports these are released automatically to the patients. We do not comment on most testing on mychart in a message or commentary unless there is a concern. You will not receive a message from me of the result unless there is a specific concern. Make sure to check your my chart email or mamadou. My impression and recommendations were discussed with the patient and they were provided with a detailed after summary visit highlighting such. Patient verbalizes understanding and I have addressed concerns and questions at this visit. Reassurance provided. Medication side effects discussed as applicable. . documented in this encounter [facility] 04-05-2025 Note HNO ID: [id number] Author: CAROL LEBRON MD Service: ? Author Type: Physician Type: Progress Notes Filed: 04/05/2025 18:45 Note Text: Reason for Visit Follow up DENTON Love is a 49-year-old female presenting for evaluation of recent changes in mood and exacerbation of migraines, as well as a refill of her control medication. Kate reports feeling not like herself and experiencing increased sadness and anxiety since her Celexa dosage was reduced from 40 mg to 10 mg. She requests an increase to 20 mg. She also notes a recent exacerbation of migraines, with a 5-day episode that was more prolonged and severe than her usual 1-3 day episodes. She attributes this to a combination of factors, including being outdoors during a fifth-grade camp, hormonal changes during her menstrual cycle, and the reduced Celexa dosage. She describes the migraine pain as ice pick to the christianity and notes associated nausea. She has been using Maxalt for migraine relief but finds it requires multiple doses and is less effective if not taken consistently. She inquires about the possibility of usingtramadol injections for migraines, as recommended by a coworker. Kate also reports recent symptoms of sneezing and itchiness, which she attributes to allergies rather than a viral infection. She expresses concern that these symptoms might have affected her recent lab results. Additionally, Kate requests a refill of her control medication, noting that she received her last Pap smear in November at the [facility]. She is aware of the increased risk of blood clots associated with control use after age 50 and confirms that she is still menstruating. She maintains an active lifestyle and stays well-hydrated. She is planning a trip to [place] in April and expresses concern about managing her migraines and associated nausea during the trip. Social History Tobacco Use Smoking status: Never Smokeless tobacco: Never Substance Use Topics Alcohol use: Yes Comment: OCCASIONALLY, once per week Drug use: No Past medical history, appointments, medications, allergies reviewed. Pertinent Lab/Diagnostic Studies are reviewed and discussed today Current Outpatient Medications: MEDICATION, NON-DATABASE docosahexaenoic acid/epa (FISH OIL ORAL) MEDICATION, NON-DATABASE ASHWAGANDHA EXTRACT ORAL MEDICATION, NON-DATABASE B.animalis,bifid,infantis,long (PROBIOTIC 4X ORAL) MEDICATION, NON-DATABASE NIFEdipine rectal ointment 0.2% (CPD) rizatriptan (MAXALT) 5 mg tablet valACYclovir (VALTREX) 500 mg tablet cyanocobalamin, vitamin B-12, (VITAMIN B-12 ORAL) cholecalciferol, vitamin D3, (VITAMIN D3 ORAL) magnesium carb,citrate,oxide (MAGNESIUM COMPLEX ORAL) rimegepant (NURTEC ODT) 75 mg disintegrating tablet Norethindrone Acet-Ethinyl Est (12/07, ,) 1-20 mg-mcg per tablet ondansetron (ZOFRAN) 4 mg tablet citalopram (CELEXA) 20 mg tablet buPROPion (WELLBUTRIN) 75 mg tablet medroxyPROGESTERone (PROVERA) 10 mg tablet estradiol (VIVELLE-DOT) 0.075 mg/24 hr patch meclizine (ANTIVERT) 25 mg tab Health Maintenance Colorectal Cancer Screening Shingrix Vaccine(1 of 2) Pneumococcal Vaccine: 50+(1 of 1 - PCV) Mammogram Screening@ Review Of Systems Head:(+)migraines Ears/Nose/Mouth/Throat:(+)sneezing,(+) itchiness Gastrointestinal:(+)nausea Psychiatric:(+)sadness,(+)anxiety Physical Exam BP 138/82 Pulse 89 Resp 16 Wt 83.7 kg (184 lb 9.6 oz) LMP 02/04/2025 SpO2 97% BMI 29.80 kg/m? GENERAL: NAD, alert and oriented SKIN: unremarkable, no rash or skin lesions. HEAD: normocephalic EYES: PERRLA, EOMI, conjunctiva clear EARS: external ears normal, canals clear, TM's normal. NOSE/SINUSES: Nares normal. Septum midline. OROPHARYNX: lips, mucosa, and tongue normal, good dentition. No oral lesions noted. NECK: Supple, no lymphadenopathy, normal thyroid, no carotid bruits. LUNGS: Clear to auscultation bilaterally, no wheezes/rhonchi/rales. HEART: Regular rate and rhythm, no murmurs. No ectopy. EXTREMITIES: Normal, No deformities, No skin discoloration, No edema. NEURO: Awake, alert and oriented x3, cranial nerves II-XII grossly intact, normal gait, no involuntary motions Labs: - WBC: Within normal range Assessment and Plan 1. Screening for depression (Z13.31) Anxiety (F41.9) Symptoms of depression and anxiety have worsened since reduction of Celexa from 40 mg to 10 mg. - Increased Celexa to 20 mg daily. - Recheck blood work in one month to monitor WBC count. 2. Other decreased white blood cell (WBC) count) Recent labs show decreased WBC count. Possible viral infection suspected, but patient reports symptoms consistent with allergies. - Recheck blood work in one month to monitor WBC count. 3. Other migraine without status migrainosus, not intractable (G43.809) Recent increase in migraine frequency and severity, with episodes lasting up t (more content not included)... [facility] 04-05-2025 History of Present illness Narrative Reason for Visit Follow up HPI Kate is a 49-year-old female presenting for evaluation of recent changes in mood and exacerbation of migraines, as well as a refill of her control medication. Kate reports feeling not like herself and experiencing increased sadness and anxiety since her Celexa dosage was reduced from 40 mg to 10 mg. She requests an increase to 20 mg. She also notes a recent exacerbation of migraines, with a 5-day episode that was more prolonged and severe than her usual 1-3 day episodes. She attributes this to a combination of factors, including being outdoors during a fifth-grade camp, hormonal changes during her menstrual cycle, and the reduced Celexa dosage. She describes the migraine pain as ice pick to the christianity and notes associated nausea. She has been using Maxalt for migraine relief but finds it requires multiple doses and is less effective if not taken consistently. She inquires about the possibility of using tramadol injections for migraines, as recommended by a coworker. Kate also reports recent symptoms of sneezing and itchiness, which she attributes to allergies rather than a viral infection. She expresses concern that these symptoms might have affected her recent lab results. Additionally, Kate requests a refill of her control medication, noting that she received her last Pap smear in November at the [facility]. She is aware of the increased risk of blood clots associated with control use after age 50 and confirms that she is still menstruating. She maintains an active lifestyle and stays well-hydrated. She is planning a trip to [place] in April and expresses concern about managing her migraines and associated nausea during the trip. Social History Tobacco Use Smoking status: Never Smokeless tobacco: Never Substance Use Topics Alcohol use: Yes Comment: OCCASIONALLY, once per week Drug use: No Past medical history, appointments, medications, allergies reviewed. Pertinent Lab/Diagnostic Studies are reviewed and discussed today Current Outpatient Medications: MEDICATION, NON-DATABASE docosahexaenoic acid/epa (FISH OIL ORAL) MEDICATION, NON-DATABASE ASHWAGANDHA EXTRACT ORAL MEDICATION, NON-DATABASE B.animalis,bifid,infantis,long (PROBIOTIC 4X ORAL) MEDICATION, NON-DATABASE NIFEdipine rectal ointment 0.2% (CPD) rizatriptan (MAXALT) 5 mg tablet valACYclovir (VALTREX) 500 mg tablet cyanocobalamin, vitamin B-12, (VITAMIN B-12 ORAL) cholecalciferol, vitamin D3, (VITAMIN D3 ORAL) magnesium carb,citrate,oxide (MAGNESIUM COMPLEX ORAL) rimegepant (NURTEC ODT) 75 mg disintegrating tablet Norethindrone Acet-Ethinyl Est (12/07, ,) 1-20 mg-mcg per tablet ondansetron (ZOFRAN) 4 mg tablet citalopram (CELEXA) 20 mg tablet buPROPion (WELLBUTRIN) 75 mg tablet medroxyPROGESTERone (PROVERA) 10 mg tablet estradiol (VIVELLE-DOT) 0.075 mg/24 hr patch meclizine (ANTIVERT) 25 mg tab Health Maintenance Colorectal Cancer Screening Shingrix Vaccine(1 of 2) Pneumococcal Vaccine: 50+(1 of 1 - PCV) Mammogram Screening@ Review Of Systems Head:(+)migraines Ears/Nose/Mouth/Throat:(+)sneezing,(+) itchiness Gastrointestinal:(+)nausea Psychiatric:(+)sadness,(+)anxiety Physical Exam BP 138/82 Pulse 89 Resp 16 Wt 83.7 kg (184 lb 9.6 oz) LMP 02/04/2025 SpO2 97% BMI 29.80 kg/m GENERAL: NAD, alert and oriented SKIN: unremarkable, no rash or skin lesions. HEAD: normocephalic EYES: PERRLA, EOMI, conjunctiva clear EARS: external ears normal, canals clear, TM's normal. NOSE/SINUSES: Nares normal. Septum midline. OROPHARYNX: lips, mucosa, and tongue normal, good dentition. No oral lesions noted. NECK: Supple, no lymphadenopathy, normal thyroid, no carotid bruits. LUNGS: Clear to auscultation bilaterally, no wheezes/rhonchi/rales. HEART: Regular rate and rhythm, no murmurs. No ectopy. EXTREMITIES: Normal, No deformities, No skin discoloration, No edema. NEURO: Awake, alert and oriented x3, cranial nerves II-XII grossly intact, normal gait, no involuntary motions Labs: - WBC: Within normal range Assessment and Plan 1. Screening for depression (Z13.31) Anxiety (F41.9) Symptoms of depression and anxiety have worsened since reduction of Celexa from 40 mg to 10 mg. - Increased Celexa to 20 mg daily. - Recheck blood work in one month to monitor WBC count. 2. Other decreased white blood cell (WBC) count) Recent labs show decreased WBC count. Possible viral infection suspected, but patient reports symptoms consistent with allergies. - Recheck blood work in one month to monitor WBC count. 3. Other migraine without status migrainosus, not intractable (G43.809) Recent increase in migraine frequency and severity, with episodes lasting up to five days. Current treatment with Maxalt provides temporary relief but requires multiple doses. - Prescribed Nurtec ODT 75 mg, one tablet orally once daily as needed for acute migraine attacks. - Prescribed Zofran 4 mg, one tablet orally every 8 hours as needed for nausea associated with migraines. 4. 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 Discussed increased risk of blood clots with continued use after age 50. - Refilled Junel 12/07 prescription. - Advised patient to follow up with DOUBLE ENDING MACHINE OPERATOR in one year to discuss alternative contraceptive options. Voice recognition software was used to compose this office note. Please excuse any unintended typographical errors. Recording using FAB[employer] software for draft documentation of the visit was discussed with the patient/authorized sales representative uniforms; all questions welcomed and answered. Patient/authorized sales representative uniforms agreed to proceed Carol Lebron MD documented in this encounter [facility] 04-05-2025 Instructions Carol Lebron MD - 04/05/2025 3:39 PM EDT We discussed your current medication adjustments and symptoms: - Increase your Celexa (citalopram) dose to 20 mg daily. This has been sent to your pharmacy. We will recheck your blood work in one month to monitor your response to the dose change. - You reported experiencing migraines more frequently since your medication adjustment. To address this: - I prescribed Nurtec (rimegepant) to try as an acute treatment for migraines. Take one tablet as needed when a migraine begins. This dissolves under your tongue and works differently from Maxalt. I provided 10 tablets to start. - I also prescribed Zofran (ondansetron) to help manage nausea associated with migraines. You have 30 tablets available to use as needed. - Continue taking Maxalt (rizatriptan) as previously prescribed if needed, but try Nurtec to see if it works better for you. We discussed your control: - I refilled your Junel (ethinyl estradiol/norethindrone acetate) 21-day cycle prescription. Please follow up with your shell maker lockstitch within the next year to discuss ongoing management and any potential alternatives, especially as you approach age 49. Be mindful of the increased risk of blood clots with this medication. We discussed your recent symptoms and lab results: - Your recent labs were normal, and there is no indication of infection. You mentioned experiencing allergy symptoms (sneezing, itchiness) during outdoor activities, which likely contributed to your discomfort. Allergies typically do not affect white blood cell counts, so your lab results are likely accurate. - If you experience any new or concerning symptoms, please let me know. Next steps: - Start Celexa 20 mg daily and Nurtec as needed for migraines. Use Zofran as needed for nausea. - Recheck your blood work in one month to monitor your response to the medication changes. - Follow up with your shell maker lockstitch within the next year regarding your control. - Let me know if your migraines persist or worsen despite these changes. Enjoy your upcoming trip to [place], [place], and [place]! Safe travels! documented in this encounter [facility] 02-25-2025 Note HNO ID: [id number] Author: CAROL LEBRON MD Service: ? Author Type: Physician Type: Progress Notes Filed: 02/25/2025 11:10 Note Text: Reason for Visit Anxiety medication discussion. DENTON Love is a 49-year-old female with a history of anxiety and GERD, presenting for a medication change due to persistent anxiety, weight gain, and leukopenia. Kate has been taking citalopram 40 mg daily for anxiety, but has recently reduced the dose to 20 mg daily for the past month due to concerns about leukopenia. She reports persistent anxiety, weight gain, and fatigue, and is requesting a change in medication. She has a history of vasomotor symptoms of perimenopause and is currently on an estrogen patch. She expresses dissatisfaction with a recent visit to a female health specialist, stating that she did not receive any new treatment options and was prescribed a medication she had already tried. She reports exercising on a treadmill for an hour daily and following a semi-Mediterranean diet, but is frustrated with her inability to lose weight. She denies any family history of leukemia. Social History Tobacco Use Smoking status: Never Smokeless tobacco: Never Substance Use Topics Alcohol use: Yes Comment: OCCASIONALLY, once per week Drug use: No Past medical history, appointments, medications, allergies reviewed. Pertinent Lab/Diagnostic Studies are reviewed and discussed today Current Outpatient Medications: Norethindrone Acet-Ethinyl Est 1-20 mg-mcg per tablet MEDICATION, NON-DATABASE docosahexaenoic acid/epa (FISH OIL ORAL) MEDICATION, NON-DATABASE ASHWAGANDHA EXTRACT ORAL MEDICATION, NON-DATABASE B.animalis,bifid,infantis,long (PROBIOTIC 4X ORAL) MEDICATION, NON-DATABASE NIFEdipine rectal ointment 0.2% (CPD) rizatriptan (MAXALT) 5 mg tablet valACYclovir (VALTREX) 500 mg tablet cyanocobalamin, vitamin B-12, (VITAMIN B-12 ORAL) cholecalciferol, vitamin D3, (VITAMIN D3 ORAL) magnesium carb,citrate,oxide (MAGNESIUM COMPLEX ORAL) meclizine (ANTIVERT) 25 mg tab buPROPion (WELLBUTRIN) 75 mg tablet citalopram hydrobromide (CELEXA) 10 mg tablet medroxyPROGESTERone (PROVERA) 10 mg tablet estradiol (VIVELLE-DOT) 0.075 mg/24 hr patch Health Maintenance Depression Screening Colorectal Cancer Screening Shingrix Vaccine(1 of 2) Pneumococcal Vaccine: 50+(1 of 1 - PCV) Mammogram Screening@ Review Of Systems Constitutional: (+) fatigue, (+) weight gain Psychiatric: (+) anxiety Physical Exam BP 121/82 Pulse 84 Ht 167.6 cm (5' 6) Wt 82.9 kg (182 lb 12.8 oz) LMP 02/04/2025 SpO2 98% BMI 29.50 kg/m? GENERAL: NAD, alert and oriented. SKIN: Unremarkable, no rash or skin lesions. HEAD: Normocephalic. EYES: PERRLA, EOMI, conjunctiva clear. EARS: External ears normal, canals clear, TM's normal. NOSE/SINUSES: Nares normal. Septum midline. OROPHARYNX: Lips, mucosa, and tongue normal, good dentition. No oral lesions noted. NECK: Supple, no lymphadenopathy, normal thyroid, no carotid bruits. LUNGS: Clear to auscultation bilaterally, no wheezes/rhonchi/rales. HEART: Regular rate and rhythm, no murmurs. No ectopy. EXTREMITIES: Normal, no deformities, no skin discoloration, no edema. NEURO: Awake, alert and oriented x3, cranial nerves II-XII grossly intact, normal gait, no involuntary motions. Assessment and Plan 1. Other decreased white blood cell (WBC) count (D72.818) Chronic leukopenia with recent lab results showing a slight improvement in WBC count after reducing citalopram dosage from 40 mg to 20 mg daily for the past month. Absolute lymphocyte count remains low. - Continue monitoring WBC count. - Repeat CBC in 2 months to assess for further improvement. 2. Encounter for screening mammogram for breast cancer (Z12.31) Patient is up to date with mammogram screenings. 3. Anxiety (F41.9) Currently managed with citalopram 20 mg daily, recently reduced from 40 mg due to concerns about leukopenia. Patient reports variable control of anxiety symptoms and desires a change in medication. - Initiate bupropion 75 mg daily, instructing patient to take in the morning. - Taper citalopram to 10 mg daily for 1 month, then 10 mg every other day for 1 month. - Monitor for side effects and efficacy of bupropion; consider increasing to 150 mg daily after 2 months if well-tolerated. - Discussed potential addition of buspirone if anxiety symptoms persist or if bupropion induces excessive nervous energy. 4. Weight gain (R63.5) Patient reports weight gain despite adherence to a semi-Mediterranean diet and regular exercise (1 hour daily on treadmill). Current weight is 184 lbs, the highest recorded for the patient. - Educated patient on potential weight loss benefits of bupropion. - Discussed possibility of initiating phentermine for weight loss if no improvement with current plan. - Follow-up in 2 months to evaluate weight changes and overall progr (more content not included)... [facility] 02-04-2025 History of Present illness Narrative Images from the original note were not included. COLORECTAL SURGERY Established Patient Visit Chief Complaint: persistent post op pain History of Present Illness: Kate Reed is a 49 year old female who presents for ongoing rectal pain after hemorrhoidectomy in October 2024. She states that pain after hemorrhoidectomy initially improved but did not go away completely. She did have the flu in October after the surgery & had a lot of diarrhea. She also has some fecal smearing since surgery. She is taking miralax and fiber gummies - this is resulting in well formed stools, she is not straining. The patient's last colonoscopy was 09/14/22 and showed. 12/04/24 VV w/ Radha Pham NP Her post-operative period was uncomplicated. She is tolerating diet with an improving appetite, stable weight, and energy level is improving . She has no specific complaints. She has some soreness but it is gradually improving. Assessment: Appetite: Eating and drinking well BMs: Going daily, she is to remain on bowel regimen Incision/wound: no issues postoperatively healed per ocean export coordinator Overall doing well. Again stressed the importance of a good bowel regimen and bowel habits. Patient to stay well hydrated. Not strain and use squatty potty. Follow up as needed. 10/23/24 Surgery Procedure(s): Excisional hemorrhoidectomy Skin tag removal Fulguration of internal hemorrhoids PAST MEDICAL HISTORY Diagnosis Date Anxiety 11/24/2020 Biliary dyskinesia 10/30/2013 Chronic cholecystitis without calculus 12/03/2013 Endometriosis, site unspecified Endometriosis Irregular menstrual cycle Irregular periods IRREGULAR MENSTRUATION Mild dysplasia of cervix (FREDO I) Mixed incontinence PAST SURGICAL HISTORY Procedure Laterality Date DELIVERY ONLY , low transverse, x 1 COLONOSCOPY FLX DX W/COLLJ SPEC WHEN PFRMD 09/16/2013 Colonoscopy COLPO OF CERVIX INC UPPER VAG 11/2005 ESOPHAGOGASTRODUODENOSCOPY TRANSORAL DIAGNOSTIC 09/16/2013 EGD LAPS ABD PRTM&OMENTUM DX W/WO SPEC BR/WA SPX Laparoscopy LASER ABLATION OF ENDOMETRIOSIS LAPS SURG CHOLECYSTECTOMY W/CHOLANGIOGRAPHY 11/24/2013 PAST SURGICAL HISTORY OF 2000 hemorrhoidectomy, anal fissure PAST SURGICAL HISTORY OF 02/26/2022 Placement of retropubic mid-urethral sling PAST SURGICAL HISTORY OF 10/2024 hemorrhoidectomy FAMILY HISTORY Problem Relation Age of Onset other (Fibro-Myalgia) Mother other (Hypoglycemia) Mother Hypertension Maternal Grandmother Stroke Paternal Grandmother Heart Paternal Grandfather Cancer Paternal Aunt OVARIAN Coronary Artery Disease Paternal Uncle Breast Cancer Paternal cousin 50 - 59 Anesthesia Problems No Family History Uterine Cancer No Family History Social History Tobacco Use Smoking status: Never Smokeless tobacco: Never Substance Use Topics Alcohol use: Yes Comment: OCCASIONALLY, once per week Drug use: No ALLERGIES Allergen Reactions Erythromycin GI Upset Honey Swelling Current Outpatient Medications Medication Sig Dispense Refill NIFEdipine rectal ointment 0.2% (CPD) by RECTAL route three times a day. 90 g 1 medroxyPROGESTERone (PROVERA) 10 mg tablet Take 1 tablet by mouth once daily. FOR 12 DAYS EACH MONTH 36 tablet 3 estradiol (VIVELLE-DOT) 0.075 mg/24 hr patch Use twice weekly on abdomen or buttock 24 Patch 3 citalopram (CELEXA) 40 mg tablet Take 1 tablet by mouth once daily. 90 tablet 1 rizatriptan (MAXALT) 5 mg tablet Take 1 tablet (5 mg) by mouth as needed. May repeat in 2 hours if needed 20 tablet 0 valACYclovir (VALTREX) 500 mg tablet At earliest onset of symptoms take 2 gms , 2 times a day for 1 day 8 tablet 3 cyanocobalamin, vitamin B-12, (VITAMIN B-12 ORAL) Take by mouth once daily. cholecalciferol, vitamin D3, (VITAMIN D3 ORAL) Take by mouth once daily. magnesium carb,citrate,oxide (MAGNESIUM COMPLEX ORAL) Take by mouth once daily. meclizine (ANTIVERT) 25 mg tab Take 1 tablet by mouth once daily as needed. 15 tablet 2 No current facility-administered medications for this visit. Physical Exam: 02/04/25 1551 Weight: 83.5 kg (184 lb) Height: 167.6 cm (5' 6) Body mass index is 29.7 kg/m . General Appearance: Well appearing, alert, in no acute distress, well-hydrated, well nourished. Skin: Skin color, texture, turgor normal, no suspicious rashes or lesions Head: Normocephalic, atraumatic Eyes: Sclera anicteric Oropharynx: oropharynx clear; lips/mucosa normal Neck: trachea midline Lungs: nonlabored breathing on room air, no increased work of breathing, no wheezing Heart: regular rate and rhythm Edema: no Abdomen: \\nondistended Extremities: No deformities, edema, skin discoloration, clubbing or cyanosis Neuro: CN II-XII intact; moves all extremities The sensitive examination was discussed with the Patient or Patient's Authorized Head Orthopedic Team Physician. As applicable, any other physician, advance practice provider, medical student, or other health professional student that will be observing or involved in the sensitive examination for educational or training purposes was discussed with the Patient or Authorized Head Orthopedic Team Physician. The Patient or Authorized Head Orthopedic Team Physician has agreed to proceed with the sensitive examination. (Sensitive examination includes inspection and/or palpation of the breasts, pelvis, prostate and anorectal regions) Anorectal: Anus: closed Tone: normal to high External skin: healthy Digital exam: not performed as palpation with q tip demonstrates exquisite tenderness in the posterior midline Break And Load Operator present: Yes, Ana Montano Assessment Assessment & Diagnosis: Encounter Diagnosis ICD-10-CM 1. Anal fissure K60.2 Treatment plan: Patient with anal fissure after hemorrhoidectomy + diarrheal illness. Will treat with nifedipine ointment - sent to pharmacy, can mail to house as she [place] hours [place]. Will follow up virtually in 6 weeks. Suspect that fecal seepage will improve after fissure is healed - she is currently doing well on fiber/miralax combination with proper consistency stools. Lita Schultz MD, FACS, FASCRS campus security officer Department of Colorectal Surgery [facility] [place] I have confirmed and edited as necessary, the PFSH and ROS obtained by others. documented in this encounter [facility] 02-04-2025 Note HNO ID: [id number] Author: LITA SCHULTZ MD Service: ? Author Type: Physician Type: Progress Notes Filed: 02/04/2025 18:33 Note Text: COLORECTAL SURGERY Established Patient Visit Chief Complaint: persistent post op pain History of Present Illness: Kate Reed is a 49 year old female who presents for ongoing rectal pain after hemorrhoidectomy in October 2024. She states that pain after hemorrhoidectomy initially improved but did not go away completely. She did have the flu in October after the surgery AND had a lot of diarrhea. She also has some fecal smearing since surgery. She is taking miralax and fiber gummies - this is resulting in well formed stools, she is not straining. The patient's last colonoscopy was 09/14/22 and showed. 12/04/24 VV w/ Radha Pham NP Her post-operative period was uncomplicated. She is tolerating diet with an improving appetite, stable weight, and energy level is improving . She has no specific complaints. She has some soreness but it is gradually improving. Assessment: Appetite: Eating and drinking well BMs: Going daily, she is to remain on bowel regimen Incision/wound: no issues postoperatively healed per ocean export coordinator Overall doing well. Again stressed the importance of a good bowel regimen and bowel habits. Patient to stay well hydrated. Not strain and use squatty potty. Follow up as needed. 10/23/24 Surgery Procedure(s): Excisional hemorrhoidectomy Skin tag removal Fulguration of internal hemorrhoids PAST MEDICAL HISTORY Diagnosis Date Anxiety 11/24/2020 Biliary dyskinesia 10/30/2013 Chronic cholecystitis without calculus 12/03/2013 Endometriosis, site unspecified Endometriosis Irregular menstrual cycle Irregular periods IRREGULAR MENSTRUATION Mild dysplasia of cervix (FREDO I) Mixed incontinence PAST SURGICAL HISTORY Procedure Laterality Date DELIVERY ONLY , low transverse, x 1 COLONOSCOPY FLX DX W/COLLJ SPEC WHEN PFRMD 09/16/2013 Colonoscopy COLPO OF CERVIX INC UPPER VAG 11/2005 ESOPHAGOGASTRODUODENOSCOPY TRANSORAL DIAGNOSTIC 09/16/2013 EGD LAPS ABD PRTMANDOMENTUM DX W/WO SPEC BR/WA SPX Laparoscopy LASER ABLATION OF ENDOMETRIOSIS LAPS SURG CHOLECYSTECTOMY W/CHOLANGIOGRAPHY 11/24/2013 PAST SURGICAL HISTORY OF 2000 hemorrhoidectomy, anal fissure PAST SURGICAL HISTORY OF 02/26/2022 Placement of retropubic mid-urethral sling PAST SURGICAL HISTORY OF 10/2024 hemorrhoidectomy FAMILY HISTORY Problem Relation Age of Onset other (Fibro-Myalgia) Mother other (Hypoglycemia) Mother Hypertension Maternal Grandmother Stroke Paternal Grandmother Heart Paternal Grandfather Cancer Paternal Aunt OVARIAN Coronary Artery Disease Paternal Uncle Breast Cancer Paternal cousin 50 - 59 Anesthesia Problems No Family History Uterine Cancer No Family History Social History Tobacco Use Smoking status: Never Smokeless tobacco: Never Substance Use Topics Alcohol use: Yes Comment: OCCASIONALLY, once per week Drug use: No ALLERGIES Allergen Reactions Erythromycin GI Upset Honey Swelling Current Outpatient Medications Medication Sig Dispense Refill NIFEdipine rectal ointment 0.2% (CPD) by RECTAL route three times a day. 90 g 1 medroxyPROGESTERone (PROVERA) 10 mg tablet Take 1 tablet by mouth once daily. FOR 12 DAYS EACH MONTH 36 tablet 3 estradiol (VIVELLE-DOT) 0.075 mg/24 hr patch Use twice weekly on abdomen or buttock 24 Patch 3 citalopram (CELEXA) 40 mg tablet Take 1 tablet by mouth once daily. 90 tablet 1 rizatriptan (MAXALT) 5 mg tablet Take 1 tablet (5 mg) by mouth as needed. May repeat in 2 hours if needed 20 tablet 0 valACYclovir (VALTREX) 500 mg tablet At earliest onset of symptoms take 2 gms , 2 times a day for 1 day 8 tablet 3 cyanocobalamin, vitamin B-12, (VITAMIN B-12 ORAL) Take by mouth once daily. cholecalciferol, vitamin D3, (VITAMIN D3 ORAL) Take by mouth once daily. magnesium carb,citrate,oxide (MAGNESIUM COMPLEX ORAL) Take by mouth once daily. meclizine (ANTIVERT) 25 mg tab Take 1 tablet by mouth once daily as needed. 15 tablet 2 No current facility-administered medications for this visit. Physical Exam: 02/04/25 1551 Weight: 83.5 kg (184 lb) Height: 167.6 cm (5' 6) Body mass index is 29.7 kg/m?. General Appearance: Well appearing, alert, in no acute distress, well-hydrated, well nourished. Skin: Skin color, texture, turgor normal, no suspicious rashes or lesions Head: Normocephalic, atraumatic Eyes: Sclera anicteric Oropharynx: oropharynx clear; lips/mucosa normal Neck: trachea midline Lungs: nonlabored breathing on room air, no increased work of breathing, no wheezing Heart: regular rate and rhythm Edema: no Abdomen: nondistended Extremities: No deformities, edema, skin discoloration, clubbing or cyanosis Neuro: CN II-XII intact; moves all extremities The sensitive examination was discussed with the Patient or Patient's (more content not included)... [facility] 01-20-2025 Telephone encounter Note Pt informed Maria Luisa Lofton MA [facility] 01-20-2025 Miscellaneous Notes Pt informed Maria Luisa Lofton MA Please let patient know that her labs looked good overall. Her WBC count is still slightly low. I would like to repeat in 4 weeks to monitor. Katherine Tirado PA-C 01/20/2025 documented in this encounter [facility] 01-20-2025 Telephone encounter Note Please let patient know that her labs looked good overall. Her WBC count is still slightly low. I would like to repeat in 4 weeks to monitor. Katherine Tirado PA-C 01/20/2025 [facility] 12-16-2024 Instructions Jossie Lew MD - 12/16/2024 8:46 AM EST Hi Kate! It was so nice to meet with you today! Below are my recommendations from today's visit. Please follow up with me in March 2025. Referrals placed: Eating Well for Optimal Health 6 week class - meets once a week for 90 minutes Nutrition: Focus on a Mediterranean diet eating pattern. This means that you will increase fruits, vegetables and whole grains; the focus for protein will be chicken, fish and limited red meat. In general, the focus is protein, healthy fast and fiber/slow-digesting carbohydrates Aim for plain bengali yogurt. Add your own fruit Try prepping hard-boiled eggs the night before and have 2 the next morning for breakfast Bread: try haleigh or a true sourdough bread. (I buy mine from the [employer] - not the bread section) You might also try the imagoo grain-free bread mix. You can find this online or at [employer]: https://www.Moneylib/Products/P roduct/Odvhegx-Fhhbz-Rko.aspx For dinner, aim for the plate method: 1/2 the plate should be non-starchy vegetable, 1/4 plate starch, 1/4 plate of protein (I would double up on the protein to achieve fullness and satiety) Reviews of some high protein, low carb pastas: https://Focus IP.com/article/best-keto- pasta/ You might try prepping a LARGE GREEN smoothie from the hyper-nourishment protocol the night before as a to-go breakfast that you sip on all morning. The Hyper-Nourishment Protocol deliberately inundates the body with mwvcd-9-fypd foods such as flax seeds and carley seeds while minimizing, and eventually eliminating, the intake of dxhkq-2-hujo foods like processed oils and animal products. This intentional approach facilitates the breakdown of omega-3 fatty acids, swiftly reducing inflammation A video showing you how to make it: https://www.Geofeedia.com/watch?v=iVJ1kS oeUyo Ways to prevent a binge: When you sit down to watch a show/relax, take a pre-portioned amount of food and grab some sparkling water ([place], Bubbly etc). You might grab a 1/4 cup of nuts, or 1/2 and apple with 1 TBSP of peanut butter, some veggies sticks with 2 spoon fulls of humus; or maybe a 1/2 cup of fresh blueberries Here is a great link that discusses the Mediterranean diet and a link to their free recipes: https://www.WebRadar.Vicino/m dwdhbcrzdcjw-hfui-4/ https://www.WebRadar.Vicino/r ecipes/ Exercise guidelines: Cardio (walking, swimming, biking, running, jogging) 3x per week for 30 minutes x 6 weeks. Assess goals every 6 weeks. If meeting metric, add one more day of exercise until you reach 6 days a week (150 minutes) Strength training 1x per week for 20-40 minutes x 6 weeks. Assess goals every 6 weeks. If meeting metric, add one more day of strength training until you reach 3 days a week x 20-40 minutes Grow With Isabel at home exercises: Indoor walking: https://youtu.be/nmNCH-Ueq8E?si=ui-kvC C8tV1c00SJ Indoor walking: https://youtu.be/fCT3m3scQJp?si=[email or web address] HIw07oIcfp Indoor walking: https://Bankfeeinsider.com.be/_bq49gbCyPw?si=_qLvHJ -[email or web address] Strength training: https://Bankfeeinsider.com.be/0yYiErHenzs?si=bU14mm InGZewNRUo Track Inches, not weight! The waist to hip ratio for women should be less than or equal to 0.85 (wast divide by hip). Measure the true waist (which is higher than where most people where there pants) and hip. The divide the waist measurement by the hip measurement. Feel free to measure other parts of your body to track progress monthly. Inches lost is a better representation than weight loss, especially as we gain more muscle from strength training workouts Sleep hygiene: Cool room (65-69 degrees) Dark room No electronics 60 minutes before bed Read a book, or do meditation one hour before bed Feel free to drink herbal sleep teas at night - lavender, chamomile, sleepy time Supplements to take an hour before bed to help sleep Magnesium L-threonate, Inositol, L-theanine https://www.[employer]/collecti ons/sleep Another supplement to help fight inflammation: Resveratrol + curcumin https://[employer].Vicino/collections/f rontpage/products/rtfdsosvo-cbxtzsvk-s esveratrol AVOID ALCOHOL: https://www.who.int/europe/news-room/0 02-16-2023-ba-iydpe-bl-alcohol-consumpt kha-eq-azak-xlr-kzk-bwsjal https://www.hhs.gov/about/news//xr-fhutzpb-felborq-hjwivg-wfm-gjxr maim-vlwr-vacrybq-cancer-risk.html With any supplements or medications if you develop any rashes, swelling, difficulty breathing or any other concerning symptom please seek immediate medical attention. documented in this encounter [facility] 12-16-2024 History of Present illness Narrative Images from the original note were not included. [facility] Initial Consult I have communicated my name and active licensure. The patient's identity and physical location were verified at the time of this visit. Either the patient or their legal sales representative uniforms has been informed of the risks and benefits of -- and alternatives to -- treatment through a remote evaluation and consents to proceed with the evaluation remotely. 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 Hx: On BC for endometriosis Still has regular cycle Mom hit MP at 51 Nutrition: Cooks 4-5x per day week Eats on the weekends Breakfast: American yogurt +/- fruit (sometimes full sugar, sometimes zero sugar); weekends: eggs with toast Lunch: soup (chicken noodle, broccoli cheddar, ham and carrillo); salad + sandwich (chicken salad) Dinner: Proteins: chicken and ground beef, ham, salmon (2-3x per month) Veggies: variety Starch: potato, brown rice, pasta/noodles Snacks: chocolate, sun chips, kettle chips, sometimes ice cream or a cookie Fast Food:yes, 2-3x per month Binge or stress eating: yes, tends to binge more - couple times a week Water:60-80 oz per day Tea/Coffee/Juice/Soda: Tea: no Coffee: yes with oatmilk creamer Substance Use: Smoking:no Alcohol consumption: yes, on the weekends, sometimes a couple of nights at home; 6 glasses a week - beer Bowels: hemoroidectomy (2x) - doesn't sit long on the toilet; some days constipated, some days diarrhea (Mom has official diagnosis of IBS-mixed) Exercise: in the past, was very good: 4-5x walked 30+ minutes on the treadmill; since surgery (in October 2024) - has not been walking on the treadmill Sleep: 9 pm - 5:30/6 (work days), 8/9 am (on weekdays); no trouble falling asleep; sometimes trouble with sleep maintenance (may be due to menstrual migraine headaches); not feeling refreshed when she wakes up Stressors: nothing above and beyond the normal (wondering where the world is heading is these days - this might be a small amount of low grade stress) 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 ; 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 Children Supplements: Magnesium L-threonate (in the morning) B12 Folate (B9) D3+K2 Probiotic and prebiotic gummy Fish oil Red yeast Integrative treatments: Acupuncture and med care manager for migraines - in the past for Acupuncture, current for chiro Massage therapy for migraines 12/14/2024 PROMIS CAT Fatigue PROMIS Fatigue T-Score 59 (mild) PROMIS Fatigue Percentile 18 12/14/2024 PROMIS CAT Pain Interference PROMIS Pain Interference T-Score (range: 10 - 90) 61 (moderate) PROMIS Pain Interference Percentile 14 12/14/2024 10/14/2022 PROMIS CAT Physical Function T-Score 51 (within normal limits) 44 (mild dysfunction) Percentile 54 27* Percentiles provide an indication of how a patient s score ranks in relation to the [place] general population. > 31st percentile is within normal limits or better * < 31st percentile is at least SD worse than population, which may be clinically relevant < 16th percentile is at least 1 SD worse than population and warrants attention 12/14/2024 PROMIS CAT Satisfaction with Social Roles PROMIS - Satisfaction with Participation in Social Roles T-Score 48 (Average) PROMIS Social Role Satisfaction Percentile 42 12/14/2024 PROMIS CAT Sleep Disturbance PROMIS Sleep Disturbance T-Score 56 (mild) PROMIS Sleep Disturbance Percentile 27 LABS: No results found for: HBA1C Component Ref Range & Units 1 mo ago (10/23/24) 4 mo ago (07/22/24) 2 yr ago (02/05/22) 2 yr ago (01/22/22) 4 yr ago (09/23/20) 7 yr ago (01/05/17) 11 yr ago (11/09/13) 11 yr ago (11/09/13) Glucose 74 - 99 mg/dL 89 93 CM 90 CM 76 CM 92 CM 77 CM 71 R 74 R Cholesterol, Total Date Value Ref Range Status 07/22/2024 201 (H) <200 mg/dL Final Comment: <200 mg/dL, Desirable 200-239 mg/dL, Borderline high >239 mg/dL, High HDL Cholesterol Date Value Ref Range Status 07/22/2024 47 >39 mg/dL Final Comment: 40-59 mg/dL, Acceptable >59 mg/dL, High: Negative risk factor for coronary heart disease <40 mg/dL, Low: Positive risk factor for coronary heart disease LDL Cholesterol Date Value Ref Range Status 07/22/2024 133 (H) <100 mg/dL Final Comment: <100 mg/dL, Optimal 100-129 mg/dL, Near optimal/above optimal 130-159 mg/dL, Borderline high 160-189 mg/dL, High >189 mg/dL, Very high Secondary prevention optimal LDL Cholesterol levels are recommended to be < 70 mg/dL Triglyceride Date Value Ref Range Status 07/22/2024 103 <150 mg/dL Final Comment: <150 mg/dL, Normal 150-199 mg/dL, Borderline high 200-499 mg/dL, High >499 mg/dL, Very high Creatinine Date Value Ref Range Status 10/23/2024 0.56 (L) 0.58 - 0.96 mg/dL Final Estimated Glomerular Filtration Rate >=60 mL/min/1.73m 111 Vitamin D 25 Hydroxy (ng/mL) Date Value 03/22/2023 76.2 09/23/2020 29.2 Vitamin B12 Date Value Ref Range Status 03/22/2023 1,550 (H) 232 - 1,245 pg/mL Final No results found for: FOLATE PAST MEDICAL HISTORY Diagnosis Date Anxiety 11/24/2020 Biliary dyskinesia 10/30/2013 Chronic cholecystitis without calculus 12/03/2013 Endometriosis, site unspecified Endometriosis Irregular menstrual cycle Irregular periods IRREGULAR MENSTRUATION Mild dysplasia of cervix (FREDO I) Mixed incontinence PAST SURGICAL HISTORY Procedure Laterality Date DELIVERY ONLY , low transverse, x 1 COLONOSCOPY FLX DX W/COLLJ SPEC WHEN PFRMD 09/16/2013 Colonoscopy COLPO OF CERVIX INC UPPER VAG 11/2005 ESOPHAGOGASTRODUODENOSCOPY TRANSORAL DIAGNOSTIC 09/16/2013 EGD LAPS ABD PRTM&OMENTUM DX W/WO SPEC BR/WA SPX Laparoscopy LASER ABLATION OF ENDOMETRIOSIS LAPS SURG CHOLECYSTECTOMY W/CHOLANGIOGRAPHY 11/24/2013 PAST SURGICAL HISTORY OF 2000 hemorrhoidectomy, anal fissure PAST SURGICAL HISTORY OF 02/26/2022 Placement of retropubic mid-urethral sling Social History Tobacco Use Smoking status: Never Smokeless tobacco: Never Substance Use Topics Alcohol use: Yes Comment: OCCASIONALLY, once per week Drug use: No FAMILY HISTORY Problem Relation Age of Onset other (Fibro-Myalgia) Mother other (Hypoglycemia) Mother Hypertension Maternal Grandmother Stroke Paternal Grandmother Heart Paternal Grandfather Cancer Paternal Aunt OVARIAN Coronary Artery Disease Paternal Uncle Breast Cancer Paternal cousin 50 - 59 Anesthesia Problems No Family History Uterine Cancer No Family History ALLERGIES Allergen Reactions Erythromycin GI Upset Honey Swelling medroxyPROGESTERone (PROVERA) 10 mg tablet Take 1 tablet by mouth once daily. FOR 12 DAYS EACH MONTH estradiol (VIVELLE-DOT) 0.075 mg/24 hr patch Use twice weekly on abdomen or buttock citalopram (CELEXA) 40 mg tablet Take 1 tablet by mouth once daily. rizatriptan (MAXALT) 5 mg tablet Take 1 tablet (5 mg) by mouth as needed. May repeat in 2 hours if needed valACYclovir (VALTREX) 500 mg tablet At earliest onset of symptoms take 2 gms , 2 times a day for 1 day cyanocobalamin, vitamin B-12, (VITAMIN B-12 ORAL) Take by mouth once daily. cholecalciferol, vitamin D3, (VITAMIN D3 ORAL) Take by mouth once daily. magnesium carb,citrate,oxide (MAGNESIUM COMPLEX ORAL) Take by mouth once daily. meclizine (ANTIVERT) 25 mg tab Take 1 tablet by mouth once daily as needed. PHYSICAL EXAMINATION: Physical Exam HENT: Head: Normocephalic and atraumatic. Eyes: Conjunctiva/sclera: Conjunctivae normal. Pulmonary: Effort: Pulmonary effort is normal. Neurological: General: No focal deficit present. Psychiatric: Mood and Affect: Mood normal. Behavior: Behavior normal. VS History: Last 3 Encounter BP Readings: Date: BP: 12/02/2024 136/74 12/02/2024 136/74 11/17/2024 112/70 Weight Weight 12/02/2024 171 lb 15.3 oz HT 5'6'' BMI 27.75 12/02/2024 172 lb 11/17/2024 172 lb 09/14/2024 180 lb 12.4 oz 09/09/2024 181 lb 3.5 oz 07/23/2024 173 lb 05/30/2023 180 lb 03/22/2023 176 lb 12/07/2022 173 lb 12.8 oz 08/13/2022 166 lb ASSESSMENT / PLAN: 1. Abnormal weight gain - ICD9: 783.1, ICD10: R63.5 (primary diagnosis) 2. Nutritional counseling - ICD9: V65.3, ICD10: Z71.3 Referrals placed: [facility] Nutrition: Focus on a Mediterranean diet eating pattern. This means that you will increase fruits, vegetables and whole grains; the focus for protein will be chicken, fish and limited red meat. In general, the focus is protein, healthy fast and fiber/slow-digesting carbohydrates Exercise guidelines: Cardio (walking, swimming, biking, running, jogging) 3x per week for 30 minutes x 6 weeks. Assess goals every 6 weeks. If meeting metric, add one more day of exercise until you reach 6 days a week (150 minutes) Strength training 1x per week for 20-40 minutes x 6 weeks. Assess goals every 6 weeks. If meeting metric, add one more day of strength training until you reach 3 days a week x 20-40 minutes Track Inches, not weight! The waist to hip ratio for women should be less than or equal to 0.85 (wast divide by hip). Measure the true waist (which is higher than where most people where there pants) and hip. The divide the waist measurement by the hip measurement. Feel free to measure other parts of your body to track progress monthly. Inches lost is a better representation than weight loss, especially as we gain more muscle from strength training workouts Sleep hygiene: Cool room (65-69 degrees) Dark room No electronics 60 minutes before bed Read a book, or do meditation one hour before bed Feel free to drink herbal sleep teas at night - lavender, chamomile, sleepy time Supplements to take an hour before bed to help sleep Magnesium L-threonate, Inositol, L-theanine With any supplements or medications if you develop any rashes, swelling, difficulty breathing or any other concerning symptom please seek immediate medical attention. RTC March 2025 I spent 90 minutes in the visit, with more than 50% of the total [id number] time via virtual platform of the visit in counseling / coordination of care. All of the patient's questions and concerns were addressed. Follow up visit planning discussed Jossie Lew MD MPH MEd documented in this encounter [facility] 12-16-2024 Note HNO ID: [id number] Author: JOSSIE LEW MD Service: ? Author Type: Physician Type: Progress Notes Filed: 12/16/2024 15:09 Note Text: [facility] Initial Consult I have communicated my name and active licensure. The patient's identity and physical location were verified at the time of this visit. Either the patient or their legal sales representative uniforms has been informed of the risks and benefits of -- and alternatives to -- treatment through a remote evaluation and consents to proceed with the evaluation remotely. 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 Hx: On BC for endometriosis Still has regular cycle Mom hit MP at 51 Nutrition: Cooks 4-5x per day week Eats on the weekends Breakfast: American yogurt +/- fruit (sometimes full sugar, sometimes zero sugar); weekends: eggs with toast Lunch: soup (chicken noodle, broccoli cheddar, ham and carrillo); salad + sandwich (chicken salad) Dinner: Proteins: chicken and ground beef, ham, salmon (2-3x per month) Veggies: variety Starch: potato, brown rice, pasta/noodles Snacks: chocolate, sun chips, kettle chips, sometimes ice cream or a cookie Fast Food:yes, 2-3x per month Binge or stress eating: yes, tends to binge more - couple times a week Water:60-80 oz per day Tea/Coffee/Juice/Soda: Tea: no Coffee: yes with oatmilk creamer Substance Use: Smoking:no Alcohol consumption: yes, on the weekends, sometimes a couple of nights at home; 6 glasses a week - beer Bowels: hemoroidectomy (2x) - doesn't sit long on the toilet; some days constipated, some days diarrhea (Mom has official diagnosis of IBS-mixed) Exercise: in the past, was very good: 4-5x walked 30+ minutes on the treadmill; since surgery (in October 2024) - has not been walking on the treadmill Sleep: 9/10 pm - 5:30/6 (work days), 8/9 am (on weekdays); no trouble falling asleep; sometimes trouble with sleep maintenance (may be due to menstrual migraine headaches); not feeling refreshed when she wakes up Stressors: nothing above and beyond the normal (wondering where the world is heading is these days - this might be a small amount of low grade stress) 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 ; 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 Children Supplements: Magnesium L-threonate (in the morning) B12 Folate (B9) D3+K2 Probiotic and prebiotic gummy Fish oil Red yeast Integrative treatments: Acupuncture and med care manager for migraines - in the past for Acupuncture, current for chiro Massage therapy for migraines 12/14/2024 PROMIS CAT Fatigue PROMIS Fatigue T-Score 59 (mild) PROMIS Fatigue Percentile 18 12/14/2024 PROMIS CAT Pain Interference PROMIS Pain Interference T-Score (range: 10 - 90) 61 (moderate) PROMIS Pain Interference Percentile 14 12/14/2024 10/14/2022 PROMIS CAT Physical Function T-Score 51 (within normal limits) 44 (mild dysfunction) Percentile 54 27* Percentiles provide an indication of how a patient?s score ranks in relation to the [place] general population. > 31st percentile is within normal limits or better * < 31st percentile is at least ? SD worse than population, which may be clinically relevant < 16th percentile is at least 1 SD worse than population and warrants attention 12/14/2024 PROMIS CAT Satisfaction with Social Roles PROMIS - Satisfaction with Participation in Social Roles T-Score 48 (Average) PROMIS Social Role Satisfaction Percentile 42 12/14/2024 PROMIS CAT Sleep Disturbance PROMIS Sleep Disturbance T-Score 56 (mild) PROMIS Sleep Disturbance Percentile 27 LABS: No results found for: HBA1C Component Ref Range AND Units 1 mo ago (10/23/24) 4 mo ago (07/22/24) 2 yr ago (02/05/22) 2 yr ago (01/22/22) 4 yr ago (09/23/20) 7 yr ago (01/05/17) 11 yr ago (11/09/13) 11 yr ago (11/09/13) Glucose 74 - 99 mg/dL 89 93 CM 90 CM 76 CM 92 CM 77 CM 71 R 74 R Cholesterol, Total Date Value Ref Range Status 07/22/2024 201 (H) <200 mg/dL Final Comment: <200 mg/dL, Desirable 200-239 mg/dL, Borderline high >239 mg/dL, High HDL Cholesterol Date Value Ref Range Status 07/22/2024 47 >39 mg/dL Final Comment: 40-59 mg/dL, Acceptable >59 mg/dL, High: Negative risk factor for coronary heart disease <40 mg/dL, Low: Positive risk factor for coronary heart disease LDL Cholesterol Date Value Ref Range Status 07/22/2024 133 (H) <100 mg/dL Final Comment: <100 mg/dL, Optimal 100-129 mg/dL, Near optima (more content not included)... [facility] 12-04-2024 History of Present illness Narrative COLORECTAL SURGERY Post-Op Virtual Visit Kate Reed returns for a post-operative visit after undergoing surgery, on 10/23/[address] Schultz. Procedure(s): Excisional hemorrhoidectomy Skin tag removal Fulguration of internal hemorrhoids Indications for procedure: Kate Reed is a 49 year old female who presented with bothersome internal and external hemorrhoids. All risks and benefits were discussed with the patient, who wished to proceed. Risks include, but are not limited to: bleeding, damage to surrounding tissues, need for reoperation, kidney failure, heart attack, stroke, , venous thromboembolism, etc. Her post-operative period was uncomplicated. She is tolerating diet with an improving appetite, stable weight, and energy level is improving . She has no specific complaints. She has some soreness but it is gradually improving. Stoma output: n/a, BM frequency: daily multiple times (2) times. No straining or blood with BM. Bowel stoppers: None she is taking Miralax and fiber gummies which is greatly working. Current diet: Regular. N/V no. F/C no. Incision/wound is good, gynecology looked at it earlier this week and states everything looks great. Path: FINAL DIAGNOSIS A. Anus, hemorrhoid, resection: -Anal tissue with ectatic blood vessels, consistent with hemorrhoid Current Outpatient Medications Medication Sig Dispense Refill medroxyPROGESTERone (PROVERA) 10 mg tablet Take 1 tablet by mouth once daily. FOR 12 DAYS EACH MONTH 36 tablet 3 estradiol (VIVELLE-DOT) 0.075 mg/24 hr patch Use twice weekly on abdomen or buttock 24 Patch 3 citalopram (CELEXA) 40 mg tablet Take 1 tablet by mouth once daily. 90 tablet 1 rizatriptan (MAXALT) 5 mg tablet Take 1 tablet (5 mg) by mouth as needed. May repeat in 2 hours if needed 20 tablet 0 valACYclovir (VALTREX) 500 mg tablet At earliest onset of symptoms take 2 gms , 2 times a day for 1 day 8 tablet 3 cyanocobalamin, vitamin B-12, (VITAMIN B-12 ORAL) Take by mouth once daily. cholecalciferol, vitamin D3, (VITAMIN D3 ORAL) Take by mouth once daily. magnesium carb,citrate,oxide (MAGNESIUM COMPLEX ORAL) Take by mouth once daily. meclizine (ANTIVERT) 25 mg tab Take 1 tablet by mouth once daily as needed. 15 tablet 2 No current facility-administered medications for this visit. ALLERGIES Allergen Reactions Erythromycin GI Upset Honey Swelling [facility] 11/14/2024 Not done virtual visit Assessment Assessment: Appetite: Eating and drinking well BMs: Going daily, she is to remain on bowel regimen Incision/wound: no issues postoperatively healed per ocean export coordinator Overall doing well. Again stressed the importance of a good bowel regimen and bowel habits. Patient to stay well hydrated. Not strain and use squatty potty. Follow up as needed. Radha Pham APRN.INDUCTION COORDINATION ENGINEER documented in this encounter [facility] 12-04-2024 Note HNO ID: [id number] Author: RADHA PHAM APRN.INDUCTION COORDINATION ENGINEER Service: ? Author Type: Nurse Practitioner Type: Progress Notes Filed: 12/07/2024 13:41 Note Text: COLORECTAL SURGERY Post-Op Virtual Visit Kate Reed returns for a post-operative visit after undergoing surgery, on 10/23/[address] Schultz. Procedure(s): Excisional hemorrhoidectomy Skin tag removal Fulguration of internal hemorrhoids Indications for procedure: Kate Reed is a 49 year old female who presented with bothersome internal and external hemorrhoids. All risks and benefits were discussed with the patient, who wished to proceed. Risks include, but are not limited to: bleeding, damage to surrounding tissues, need for reoperation, kidney failure, heart attack, stroke, , venous thromboembolism, etc. Her post-operative period was uncomplicated. She is tolerating diet with an improving appetite, stable weight, and energy level is improving . She has no specific complaints. She has some soreness but it is gradually improving. Stoma output: n/a, BM frequency: daily multiple times (2) times. No straining or blood with BM. Bowel stoppers: None she is taking Miralax and fiber gummies which is greatly working. Current diet: Regular. N/V no. F/C no. Incision/wound is good, gynecology looked at it earlier this week and states everything looks great. Path: FINAL DIAGNOSIS A. Anus, hemorrhoid, resection: -Anal tissue with ectatic blood vessels, consistent with hemorrhoid Current Outpatient Medications Medication Sig Dispense Refill medroxyPROGESTERone (PROVERA) 10 mg tablet Take 1 tablet by mouth once daily. FOR 12 DAYS EACH MONTH 36 tablet 3 estradiol (VIVELLE-DOT) 0.075 mg/24 hr patch Use twice weekly on abdomen or buttock 24 Patch 3 citalopram (CELEXA) 40 mg tablet Take 1 tablet by mouth once daily. 90 tablet 1 rizatriptan (MAXALT) 5 mg tablet Take 1 tablet (5 mg) by mouth as needed. May repeat in 2 hours if needed 20 tablet 0 valACYclovir (VALTREX) 500 mg tablet At earliest onset of symptoms take 2 gms , 2 times a day for 1 day 8 tablet 3 cyanocobalamin, vitamin B-12, (VITAMIN B-12 ORAL) Take by mouth once daily. cholecalciferol, vitamin D3, (VITAMIN D3 ORAL) Take by mouth once daily. magnesium carb,citrate,oxide (MAGNESIUM COMPLEX ORAL) Take by mouth once daily. meclizine (ANTIVERT) 25 mg tab Take 1 tablet by mouth once daily as needed. 15 tablet 2 No current facility-administered medications for this visit. ALLERGIES Allergen Reactions Erythromycin GI Upset Honey Swelling [facility] 11/14/2024 Not done virtual visit Assessment Assessment: Appetite: Eating and drinking well BMs: Going daily, she is to remain on bowel regimen Incision/wound: no issues postoperatively healed per ocean export coordinator Overall doing well. Again stressed the importance of a good bowel regimen and bowel habits. Patient to stay well hydrated. Not strain and use squatty potty. Follow up as needed. Radha Pham APRN.[facility] 12-02-2024 Note HNO ID: [id number] Author: ASHLEE MUNOZ MD Service: ? Author Type: Physician Type: Progress Notes Filed: 12/02/2024 13:02 Note Text: I spent a total of 41+ minutes on the date of the service which included preparing to see the patient, [id number] patient care, completing clinical documentation, obtaining and/or reviewing separately obtained history, counseling and educating the patient/family/caregiver, ordering medications, tests, or procedures, communicating with other HCPs (not separately reported), and independently interpreting results (not separately reported). [facility] 12-02-2024 History of Present illness Narrative I spent a total of 41+ minutes on the date of the service which included preparing to see the patient, [id number] patient care, completing clinical documentation, obtaining and/or reviewing separately obtained history, counseling and educating the patient/family/caregiver, ordering medications, tests, or procedures, communicating with other HCPs (not separately reported), and independently interpreting results (not separately reported). In office visit, December 02, 2024 Start review of records, labs, interim events 11:36 AM Kate Reed is 49 year old. 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 Ann-Marie Brooks in [facility] (she lives 1[place] hours from main med[place]). Had Aquaculturist exam with Gena Thompson CNP at [facility] today. Her priorities are: VMS and weight gain VMS started around age 44 (5 years ago), while on June12/07 cyclically. Bad symptoms even on active pills. H/o endometriosis, s/p laparoscopic surgery for pelvic endometriosis done. S/p cholecystectomy. weight gain for 3 years. Usual weight 150-160 lbs, today 171 lbs. Denies GSM. Has been on OCP since teenager. 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 No abnormal bleeding if on OCP. Abnormal PAP of positive HPV many years ago. vasectomy. TRIED/OFFERED OCP since teenager, helping mood. E patch 37.5 mcg x2/week with daily provera 2.5 mg daily - BTB, x 6 months E oral pill (?type) with daily provera 2.5 daily - BTB Celexa since 20s for axiety. Healthy diet and exercise. HORMONAL HEALTH QUESTIONNAIRE (Patient entered data, with my edits. See the questionnaire link for full review of systems). SYMPTOMS Any sxs (even if mild): VMS; sleep problems; weight gain Bothersome sxs: VMS; weight gain Symptom duration: >5 yrs Sexual health hx: No concerns reported Potential contributing factors: medications; suboptimal sleep Sxs improve on vacation? No Previously tried/offered: hormones; vitamins and supplements; healthy lifestyle changes; antidepressants HORMONAL HISTORY Uterus in situ? Yes Cervix in situ? Yes Ovaries in situ? Yes LMP: Within the last year, about once monthly; 11/11/24 Regular menses in past? Yes Age of menarche: 13 or older G 2 P 2 FLB: Yes; Age: 22 Infertility hx or tx? No Current hormone use: Yes; pills Past hormone use: Yes; patch Duration of exogenous hormone use: > 10 yrs Tolerated? Well Unintended acceptable? Prefers not to answer Chance of unintended : No RISK ASSESSMENT (see link for full ROS) Relevant PMH: active gallbladder problems; migraine; endometriosis Relevant Fam Hx: No close relative with arterial/venous thrombosis, cancer, hip fracture Prior BMD: Never Prior breast biopsy: No Current tobacco use: No Alcohol use per week: < 7 drinks Substance use: Prefers not to answer Other hormonal concerns? No patient response *NOTE - Questionnaire responses within the last 30 days are represented in black ink; Responses between 31-365 days are represented in blue ink. The 10-year ASCVD risk score (Yfn STRINGER, et al., 2019) is: 1.7% Values used to calculate the score: Age: 49 years Sex: Female Is Non- : No Diabetic: No Tobacco smoker: No Systolic Blood Pressure: 136 mmHg Is BP treated: No HDL Cholesterol: 47 mg/dL Total Cholesterol: 201 mg/dL PAST HISTORY (reviewed and updated):Subjective OB History T2 L2 SAB0 IAB0 Ectopic0 Multiple0 Live Births0 ACTIVE PROBLEM LIST Endometriosis, Site Unspecified Gerd (Gastroesophageal Reflux Disease) Anxiety Vertigo PAST MEDICAL HISTORY Diagnosis Date Anxiety 11/24/2020 Biliary dyskinesia 10/30/2013 Chronic cholecystitis without calculus 12/03/2013 Endometriosis, site unspecified Endometriosis Irregular menstrual cycle Irregular periods IRREGULAR MENSTRUATION Mild dysplasia of cervix (FREDO I) Mixed incontinence PAST SURGICAL HISTORY Procedure Laterality Date DELIVERY ONLY , low transverse, x 1 COLONOSCOPY FLX DX W/COLLJ SPEC WHEN PFRMD 09/16/2013 Colonoscopy COLPO OF CERVIX INC UPPER VAG 11/2005 ESOPHAGOGASTRODUODENOSCOPY TRANSORAL DIAGNOSTIC 09/16/2013 EGD LAPS ABD PRTM&OMENTUM DX W/WO SPEC BR/WA SPX Laparoscopy LASER ABLATION OF ENDOMETRIOSIS LAPS SURG CHOLECYSTECTOMY W/CHOLANGIOGRAPHY 11/24/2013 PAST SURGICAL HISTORY OF 2000 hemorrhoidectomy, anal fissure PAST SURGICAL HISTORY OF 02/26/2022 Placement of retropubic mid-urethral sling FAMILY HISTORY Problem Relation Age of Onset other (Fibro-Myalgia) Mother other (Hypoglycemia) Mother Hypertension Maternal Grandmother Stroke Paternal Grandmother Heart Paternal Grandfather Cancer Paternal Aunt OVARIAN Coronary Artery Disease Paternal Uncle Breast Cancer Paternal cousin 50 - 59 Anesthesia Problems No Family History Uterine Cancer No Family History Social History Tobacco Use Smoking status: Never Smokeless tobacco: Never Substance Use Topics Alcohol use: Yes Comment: OCCASIONALLY, once per week Drug use: No Social History Social History Narrative Not on file EXAM: BP 136/74 Pulse 71 Ht 5' 6 (1.676 m) Wt 171 lb 15.3 oz (78 kg) LMP 11/11/2024 BMI 27.75 kg/m GEN: Pleasant, cooperative, NAD SKIN: Color, texture, turgor nl. Warm, dry. ENDO: No obvious hirsutism signs. EYES: Conjunctivae clear. No discoloration. PULM: Breathing comfortably without distress NEURO: AOx3. Gait nl. CN gr intact TESTING:Objective Last 10 Encounter BP Readings: Date: BP: 12/02/2024 136/74 12/02/2024 136/74 11/17/2024 112/70 10/23/2024 150/73 09/14/2024 124/84 09/09/2024 128/80 07/31/2024 130/65 07/23/2024 135/67 05/30/2023 120/78 03/22/2023 108/56 Lab Results Component Value Date TSH 2.090 07/22/2024 TSH 1.360 03/22/2023 TSH 2.390 02/05/2022 TSH 2.260 09/23/2020 TSH 2.140 10/06/2018 TSH 1.550 01/05/2017 B12 1,550 (H) 03/22/2023 B12 1,035 09/23/2020 VITD25 76.2 03/22/2023 VITD25 29.2 (L) 09/23/2020 VITD25 26.1 (L) 11/09/2013 HB 13.0 07/22/2024 HB 14.0 03/22/2023 HB 12.9 01/22/2022 HB 13.2 09/23/2020 HB 13.5 10/06/2018 HB 13.1 11/09/2013 HB 13.1 11/09/2013 SUE 48.5 03/22/2023 WBC 2.90 (L) 07/22/2024 WBC 4.09 03/22/2023 WBC 4.87 01/22/2022 WBC 4.91 09/23/2020 WBC 4.99 10/06/2018 WBC 4.16 11/09/2013 WBC 4.16 11/09/2013 PLT 283 07/22/2024 PLT 315 03/22/2023 PLT 310 01/22/2022 PLT 333 09/23/2020 PLT 298 10/06/2018 PLT 287 11/09/2013 PLT 287 11/09/2013 CREAT 0.56 (L) 10/23/2024 CREAT 0.69 07/22/2024 CREAT 0.66 02/05/2022 CREAT 0.63 01/22/2022 CREAT 0.75 09/23/2020 CREAT 0.73 01/05/2017 CA 8.3 (L) 10/23/2024 CA 8.9 07/22/2024 CA 9.3 02/05/2022 CA 9.2 01/22/2022 CA 9.2 09/23/2020 CA 9.0 01/05/2017 K 10/23/2024 Comment: Unable to assay due to interference from hemolysis. Suggest reorder as clinically indicated. K 4.5 07/22/2024 K 3.5 (L) 02/05/2022 K 3.6 (L) 01/22/2022 K 3.8 09/23/2020 K 4.1 01/05/2017 NA 136 10/23/2024 NA 140 07/22/2024 NA 137 02/05/2022 NA 135 (L) 01/22/2022 NA 137 09/23/2020 NA 138 01/05/2017 AST 22 07/22/2024 AST 32 01/22/2022 AST 25 09/23/2020 AST 32 11/09/2013 ALT 14 07/22/2024 ALT 25 01/22/2022 ALT 21 09/23/2020 ALT 32 11/09/2013 GLUC 89 10/23/2024 GLUC 93 07/22/2024 GLUC 90 02/05/2022 GLUC 76 01/22/2022 GLUC 92 09/23/2020 GLUC 77 01/05/2017 LDL 133 (H) 07/22/2024 LDL 152 (H) 03/22/2023 LDL 136 (H) 01/22/2022 LDL 94 09/24/2020 LDL 131 (H) 01/05/2017 LDL 131 (H) 07/30/2011 TG 103 07/22/2024 TG 62 03/22/2023 TG 61 01/22/2022 TG 65 09/24/2020 TG 52 01/05/2017 HDL 47 07/22/2024 HDL 53 03/22/2023 HDL 64 01/22/2022 HDL 45 09/24/2020 Lab Results Component Value Date FSH 3.0 02/05/2022 No results found for: TESTOST Last Bone Density No resulted procedures found. Last Screening Mammogram [facility] SCREENING Collected: 01/08/2018 7:34 AM (Final result) Narrative: * * *Final Report* * * DATE OF EXAM: Jan 08 2018 7:34AM JINNY [id number] - [facility] SCREENING / PROCEDURE REASON: Encounter for screening mammogram for malignant neoplasm of breast * * * * Physician Interpretation * * * * RESULT: #[id number] - [facility] SCREENING BILATERAL DIGITAL SCREENING MAMMOGRAM WITH CAD: 01/08/2018 HISTORY: Encounter For Screening Mammogram For Malignant Neoplasm Of Breast /Patient reports NO breast symptoms /priors available for comparison. RESULT: TECHNIQUE: The study was acquired using full field digital technology and interpreted from soft copy. Current study was also evaluated with a Computer Aided Detection (CAD). Comparison is made to exams dated: 01/04/2017 mammogram, 09/28/2015 mammogram - [place] [facility], and 09/14/2014 mammogram. The tissue of both breasts is heterogeneously dense. This may lower the sensitivity of mammography. No significant masses, calcifications, or other findings are seen in either breast. There has been no significant interval change. Impression: IMPRESSION: NEGATIVE There is no mammographic evidence of malignancy.A 1 year screening mammogram is recommended. Milena Bell M.D., ch/james:01/08/2018 08:42:40 Microfilm Operator: Jesenia LYNN)(Alejandra), [place] [facility] letter sent: Normal over 40 Mammogram BI-RADS: 1 Negative Cost Accounting Analyst: James Transcribe Date/Time: Jan 08 2018 7:23A Dictated by: MILENA BELL MD This examination was interpreted and the report reviewed and electronically signed by: MILENA BELL MD on Jan 08 2018 8:42AM EST Last Diagnostic Mammogram No resulted procedures found. Last Breast Ultrasound No resulted procedures found. The following diagnoses were relevant to this visit: (N95.1) Perimenopause (primary encounter diagnosis) (N95.1) Perimenopausal vasomotor symptoms (R63.5) Weight gain Regarding menopause and perimenopause, we discussed the following: -Bleeding expectations, when to call for endometrial evaluation -Vasomotor symptom management -HT r/b/a -Safety and efficacy of non-hormonal options -Weight management Discussed r/b/a of HT, both short and long-term. She choses HT tx because of menopausal symptoms. Rec lowest effective dose. Need yearly assessment to see if still appropriate. Understands progestin should never be uncoupled from the estrogen in those with an intact uterus. Vivelle 75/Provera 10 mg days 1-12 each month (reviewed R/SE/Ins). See back after 3-4 months.Would benefit from shared medical (group) appointment for: --Menopause/perimenopause SMA with me or my colleague Dr Fuchs --Weight loss Office Visit on 12/02/24 CONSULT TO NUTRITION THERAPY CONSULT TO MENOPAUSE SHARED MEDICAL APPOINTMENT *Canceled* ENDOCRINE MEDICAL WEIGHT MANAGEMENT Ashlee Munoz MD Patient seen and examined with Dr. Ewa Rushing, First Year Specialized Women's Health Fellow Call if any discussed symptoms not better or worse. Note dictated using voice recognition software. documented in this encounter [facility] 12-02-2024 Instructions Ashlee Munoz MD - 12/02/2024 12:25 PM EST Images from the original note were not included. Ashlee Munoz MD, [facility] Professor of fire alarm installer & Reproductive Biology Dip Guider Stoves & Women's Health [place] Dept of Subspecialty Women's Health IMPORTANT NOTE: we cannot refill prescriptions without a yearly appointment. Appointments OFTEN BOOK OUT SEVERAL months. Please ARRANGE appointments in advance so that prescription refill requests are not INTERUPPTED. Contact info: Scheduling appointments: (Aquaculturist call center, best when calling after hours, for future appointments that are for 3-6 months out, and they answer right away. They don't have access to my virtual slots) or (my office, so will have more phone tag/hold times, but have a few additional appointment options for patients I have seen before, called private slots) or General questions to my office: (for paperwork, medical questions etc as opposed to scheduling- though they can schedule private slots too) is our new Women's Health [facility]- a resource to schedule if needing to make appointments for several different specialities, for new patients etc. I see patients in the following locations: Sat & : [place] or virtual Sat, & Sat are my teaching/administrative days, but can add on virtually if an urgent hormonal need arises. Getting an appointment when you need it: Please always start with contacting numbers above for an appointment first. If needing an earlier appointment from what is offered, I can add you to my schedule if you send me a The 5th Quarter message. Since The [employer]th [employer] messages go to our nursing teams first, for me to actually see your message, I would recommend sending the message as follows with: 1) brief comment on why appointment needed 2) letting us know that you already tried calling the office and scheduled the first available appointment 3) something like Per our conversation, you mentioned you can add me in for a virtual visit, here are some dates/times in the next few weeks that work for me. It is important to include in your message multiple date/time windows that works for you in the upcoming several weeks, given flexibility in my schedule will vary. Times that are best for me: Mondays-4, (virtual only, before 2 preferred) Tuesdays-4, (virtual only, before 2 preferred) Wednesdays (most busy day for me, but have some private slots at 8 am and after 2:30 the office can offer) 9:30 (virtual) or 2:00-3:30 (virtual or [place] A[facility]) Fridays 9-4 (virtual only, before 2 preferred) Please set up an established relationship with any of my Aquaculturist colleagues for your general ocean export coordinator needs, including preventive annuals, as I work as a financial services education consultant for the specialty hormonal concerns. For typical gynecologic concerns (bleeding, vaginal infections, preventive annual etc), I work with an amazing group of doctors and nurse practitioners as a team, as well as the [facility] Care visits that are available online or at walk-in clinics throughout [facility]. If you don't get a timely response from me, please don't hesitate to be persistent! Occasionally we may have nurses and schedulers helping out temporarily in our office, causing some delays in getting the message to me. The [employer] messages are allowed a 3 business day turnaround. For more urgent matters, it is always best to contact the office by phone. Hearing back about test results: I do not believe in the practice of no news is good news. You should always expect to receive results from our office no later than 2 weeks from when all of the tests have resulted. If you are having your testing done at an outside lab, please ensure that they have my correct fax number to send the results to: . Results can also be uploaded by patients via The 5th Quarter (will need to send a message notifying us that you have uploaded them). Thank you for allowing me to participate in your care! New way to get personalized answers to your questions about hormones! From the office of Ashlee Munoz MD, Women's Health Specialist My colleague and I run group virtual menopause visits (for new or established patients, including those following up with my partners for their ocean export coordinator/menopause care).These are also called shared medical appointments, or SMAs. We cover all things hormonal, including perimenopause, menopause, sexual and bone health, for a 90 minute visit. Hormonal concerns are often complex, and I find that the typical office visit may not give me enough time to address all of my patient's concerns. This is a great way for me to have more time with my patients, and patients to learn from each other's experiences too. I conducted women's health group visits for 15 years (before [facility]), and they were a lot of fun! Patients liked the fact that they got answers to questions that they did not think to ask. Why are we doing this? There are roughly 6000 women in the [place] going into menopause every day. Yet, there are only 3500 certified menopause specialists around the world! Women's needs during this time are very individualized and decisions can be quite complex, leading to a lot of misinformation. Women have questions, we've got answers, but there are far too few of us to reach everyone, so we are looking for creative ways to provide comprehensive care. What is the cost? Although this is a longer visit, it is not billed as a long or complex visit. This will be billed to insurance like a typical short office visit. To ensure we keep visit costs low for patients, I will not be prescribing meds or ordering labs at these visits- the focus will be educational and getting answers to common questions. How do I schedule an appointment for these visits? Please call . They cotton picker operator the phone right away without long holds during normal business hours. The video group SMAs are every (with me), and every Saturday (with my partner, Shari Fuchs MD). What else should I know about these? 1) You will be in a virtual group Zoom video call with other patients, our women's health nurse specialist, and me. 2) A Hormonal Health Questionnaire will need to be filled out in in advance of the visit (will be sent via The 5th Quarter). This ensures that I understand each patient's unique circumstances, and that the info I have is up to date, so that I can provide personalized responses to questions. 3) I will not be ordering labs or managing medications, but focus will be on education/answering questions Hope you consider trying it out! Ashlee Munoz MD Colon cancer screening is offered routinely starting at age 45, earlier if there is a family family history or symptoms. With a family history of colon cancer, we would like to start screening 10 years prior to the youngest family member (this is typically a first degree relative such as a mother, father, sibling or child). This should be arranged via your primary care doctor who will typically coordinate this; however, you can feel free to contact me to order if unable to obtain via your regular primary care doctor. Weight loss resources See Dr Nieves Villatoro runs a weight loss shared medical appointment. Call [phone] during typical business hours to schedule. Yoder books (first 2 are my favorites): How to Lose Weight for the Last Time: Brain-Based Solutions for Permanent Weight Loss. By Dolores Camarillo MD (understanding our behaviors and emotions) Next Level. By Marianne Hand PhD (menopause specific- for women who are very active) Always hungry? By Ann-Marie Yarbrough M.D., PhD (high healthy fat approach- but would mix their recommendations with Mediterranean food choices) Obesity code; unlocking the secrets of weight loss. By Michael Barbour MD (intermittent fasting focus- though more evidence of benefit for men) Few Yoder podcasts: The weight loss ones are relevant to many issues such as reliance on food/alcohol/drugs, etc. since the concepts they teach are interchangeable. If you don't have a smartphone or ipod, you can listen directly on the internet. One of my favorites is called Weight loss for busy physicians by Dolores Camarillo. Start listening to the podcast for free starting from episode #1 for it to make sense. Or she also has a free starter roadmap to help navigate some of the best of podcasts since there are so many. She stopped doing the podcasts, so may be pulled down soon. I also liked Primal potential (earlier episodes were very motivating). Later episodes have a lot of sponsored products, didn't find as helpful. The director life sciences school by Herlinda Olea, who is the customer care team coach that helps train many of the director life sciences across the [place]. Her podcast is excellent, but goes into a variety of topics including managing stress, weight loss, finances, getting where you want with your job, etc. Phit-N-Phat (also called losing 100 pounds with Shy). No nonsense, straight shooting, plenty of curse words-great content. Different approach: Brain over binge Helpful website with free mamadou: https://www.[employer] Weight management appointments: Most clinicians are within the Bariatric and Metabolic [place]. Within gynecology, we have a few clinicians that have focused on weight loss too: Tomasa Galindo MD, Ankita Cox CNP (working together in [place]) & Mary Jane Sarmiento MD ([facility]). Need help in determining which options are best for you? Connect with a Health Navigator today to schedule a call: [email or web address] or [email or web address] /[email or web address]-management You can also call our [facility] to schedule all your care needs: [phone] Here are some resources for reliable information on menopause. Trustable websites: -[place] Menopause Society- now called the Menopause Society (has multiple short videos from specialists around the world, geared towards patients and doctors). Website is menopause.org. https://www.youtube.com/@MenopauseSoci kayleigh. -[facility] menopause websites: Provides locations, clinician names: https://[email or web address].[email or web address].[email or web address]/service s/menopause-treatment Conversational articles and videos: https://health.[facility].org/shaneka igating-menopause/ Formal health education page: https://HypePoints.[facility].org/health/ diseases/16509-edofjyrvd [facility] page: https://[facility].org/landing /erxnap-akbgtxblrqjpo-lbyoin-[facility] women's health info: -The [facility] Health Library and Health Essentials sections unlocks lots of info: https://my.[facility].org/health/ diseases -Speaking of women's health (has searchable page for multiple brief articles): Https://Mikro Odeme | 3pay.Vicino/ Podcast/Video from YouTube: [facility] videos, several can be found by going into YouLocaiube and putting in the search terms [facility] Menopause [place], or use links below: Mood, sleep, hotflashes and hormones with colleagues from sleep and behavoiral health programs 2022: https://www.N[employer]onents[employer].com/watch?v=Oaw_1a TQzEg General discussion about hormones pre and post menopause 2021: https://www.[employer].com/watch?v=o0IiWM hS0M4 Older one from 2019 about menopause (still accurate info): https://www.[employer].com/watch?v=8fhlAn 8HeFA [place] Menopause Society- now called the Menopause Society (has multiple short videos from several of us on different topics, geared towards patients and doctors) https://www.Geofeedia.com/@MenopauseSoci ety Menopause: Non-Hormonal Treatment & Relief for Hot Flashes Knowing the triggers of hot flashes Hot flashes may be precipitated by hot weather, smoking, caffeine, spicy foods, alcohol, tight clothing, heat and stress. Identify and avoid your hot flash triggers. Some women notice hot flashes when they eat a lot of sugar. Exercising in warm temperatures might make hot flashes worse. Diet Avoiding caffeine, spicy foods, and alcohol can help lessen both the number and severity of hot flashes. Many women try to incorporate more plant estrogens into their diet. Plant estrogens, such as isoflavones, are thought to have weak estrogen-like effects that may reduce hot flashes. They may work in the body like a weak form of estrogen. Examples of plant estrogens include: soybeans, chickpeas, lentils, flaxseed, grains, beans, fruits, red clover and vegetables. In general, soybeans, chickpeas, and lentils are considered to have the most powerful plant estrogens, though their effect is much less than that of human estrogen. Try to choose natural foods rather than supplements. Also remember that only crushed or ground forms of flaxseed are likely to help (as compared to the whole seed or seed oil forms). What foods have high amounts of isoflavones? Food: Soybeans, green, raw Isoflavone Amount (Mg) In Food (100g): 151.17 Food: Soy flour (textured) Isoflavone Amount (Mg) In Food (100g): 148.61 Food: Soybeans, dry roasted Isoflavone Amount (Mg) In Food (100g): 128.35 Food: Instant beverage soy, powder, not reconstituted Isoflavone Amount (Mg) In Food (100g): 109.51 Food: Miso soup mix, dry Isoflavone Amount (Mg) In Food (100g): 60.39 Food: Soybean chips Isoflavone Amount (Mg) In Food (100g): 54.16 Food: Tempeh, cooked Isoflavone Amount (Mg) In Food (100g): 53.00 Food: Soybean curd cheese Isoflavone Amount (Mg) In Food (100g): 28.20 Food: Tofu, silken Isoflavone Amount (Mg) In Food (100g): 27.91 Food: Tofu, yogurt Isoflavone Amount (Mg) In Food (100g): 16.30 Food: Soymilk Isoflavone Amount (Mg) In Food (100g): 9.65 Lifestyle changes Reducing the temperature in a room, dressing in layers, and the use of a fan while asleep can be effective ways to help deal with troublesome hot flashes. Women who are overweight tend to have more bothersome hot flashes, therefore weight loss can be helpful. Quitting smoking has a dual importance during menopause. First, smoking contributes to the increased cardiovascular risks of being postmenopausal. Second, smokers tend to experience more hot flashes. Women who lead a sedentary life seem to suffer more from hot flashes; however, it is best to exercise in a cooler environment. Try deep, slow abdominal breathing (6 to 8 breaths per minute). Practice deep breathing for 15 minutes in the morning, 15 minutes in the evening and at the onset of hot flashes. For some women, wearing socks to bed is helpful as it can help to cool core body temperature. Relieving insomnia Keep the bedroom cool to prevent night sweats. Avoid using sleeping pills. Exercise daily. Avoid caffeine and alcohol at night. Take a warm bath or shower at bedtime. Try milk products at bedtime or during the night (but avoid products that contain caffeine). There are cooling mattresses that can be really helpful (examples like ChilPAD, OOLER, ChiliBLANKET, etc) Coping with mood swings, fears, and depression Find a self-calming skill to practice, such as yoga, meditation or slow, deep breathing. Avoid tranquilizers, if possible. Engage in a creative outlet that fosters a sense of achievement. Stay connected with your family and community; nurture your friendships. Relieving painful intercourse Try using a vaginal water-based moisturizing lotion or lubricant during intercourse. These are sold without a prescription near the condoms in most stores. Common names include-Astroglide and KY liquid . Avoid Vaseline , as it may lead to yeast infections. Prescription and nonprescription remedies A number of non-hormonal remedies are available for the treatment of hot flashes. Some of these remedies (e.g., black cohosh and soy products) are available waaw-puw-yfnnxjw but are not FDA-approved. Some prescription medications are used off label to help reduce hot flashes. Using a product off label means that it is not FDA-approved for the treatment of hot flashes, but is often used because it can be safe and effective for hot flash treatment. Prescription therapies Prescription therapies are considered the more effective non-hormonal treatments. Most are not FDA approved to treat menopause, but are approved to treat other medical conditions, and have also been shown to be helpful for menopause symptoms and are commonly used for that purpose. Brisdelle is approved for menopause symptom treatment, but can sometimes can be more costly than the other treatment options which are found as generics. Drug: Oxybutynin (Ditropan ), oxybutynin XL (Ditropan XL ), oxybutynin TDDS (Oxytrol ). Bladder spasm and incontinence medication Side Effects: constipation, dry hot mouth, or lightheadedness. Confusion/falls (more often in the elderly). Those with narrow angle glaucoma typically can't use. Effectiveness: Good effectiveness has been shown. Drug: venlafaxine(Effexor ), antidepressant Side Effects: Nausea, change in bowel habits, headache (temporary side effects for most). Elevated blood pressure (at high doses). Effectiveness: Effectiveness has been proven in several well-designed studies. One of the safer medications for women taking tamoxifen (no drug interaction). Drug: desvenlafaxine(Pristiq ), antidepressant Side Effects: Similar to venlafaxine. Nausea, change in bowel habits, headache (temporary side effects for most). Elevated blood pressure (at high doses) Effectiveness: Improvement in hot flashes compared to placebo has been shown. Newer medication compared to venlafaxine, so there are a smaller number of studies are available. Drug: fluoxetine (Prozac ), antidepressant Side Effects: Nausea, change in bowel habits, decreased libido, insomnia. Should be avoided in women taking tamoxifen. Effectiveness: Improvement in hot flashes has been shown in well-designed studies. Drug: paroxetine (Paxil , Brisdelle ), antidepressant Side Effects: Nausea, change in bowel habits, decreased libido, dry mouth, weight gain (not common). Should be avoided in women taking tamoxifen. Effectiveness: Brisdelle has been FDA-approved to treat hot flashes. Tends to be more effective for sleep in women who are also suffering with insomnia. Improvement in hot flashes has been shown in well-designed studies. Drug: escitalopram (Lexapro ), antidepressant Side Effects: Nausea, change in bowel habits, decreased libido, abnormal EKG (not common). Effectiveness: Tends to be more effective for sleep in women who are also suffering with insomnia. Drug: gabapentin (Neurontin ) antiseizure medications most commonly used for pain/sleep/headache Side Effects: Fatigue, dizziness, nausea, disorientation, swelling, weight gain. Effectiveness: Tends to be more effective for sleep in women who are also suffering with insomnia. Drug: clonidine (Catapres ) Side Effects: Dry mouth, drowsiness, fatigue, constipation, lowers blood pressure. Effectiveness: Relieved hot flashes in some, but not all studies. Less commonly used than the other options. Drug: fezolinetant (Veozah ) Side Effects: abdominal pain, diarrhea, liver enzyme increase (will need to check every 3 months in the first year). Can't take with certain medications that are known to inhibit the liver CY enzymes (several possible) Effectiveness: FDA approved for hotflashes, works directly on the temp regulator of the brain Other holistic approaches (which have strong scientific proof of benefit): -CBT (cognitive behavioral therapy). Can be arranged within the psychology department -Hypnotherapy. To set up an appointment, you can call [phone]. Smartphone Mamadou for Hot Flashes: Sofi --> mindfulness/hypnosis approach for hot flash control A few good books: - On to help with symptoms. It is called Managing Hot Flushes and Night Sweats: A cognitive behavioural self-help guide to the menopause. by Laila Landeros & Amanda Avelar - Perimenopower by Taty Corcoran Non-prescription, herbal, eeoi-qsy-litfuml therapies: Most of the following have been compared to placebo treatment (sugar pill) and has been shown to be not any more effective. Though these are not considered very effective treatments, most of these are considered reasonably safe, but all supplements can be associated with liver enzyme problems. Drug: Evening [place]if[place] Oil Side Effects: Nausea, diarrhea, headache. Effectiveness: Only one well-designed study showing not effective. Drug: Black cohosh Side Effects: Mild stomach upset. Safe up to 6 months only due to possible estrogen-like effects (so breast cancer survivors need to discuss with their oncologist). Liver toxicity has been reported for [place] products. Effectiveness: Some small, short-term studies have suggested benefits, however most studies do not suggest that it works. More regulated in [place]: Remifemin brand (more scientific data on this, if you truly can get from [place]). 40-120mg daily. When you get online not sure what you get. Drug: Soy (plant estrogen). Also referred to as phytoestrogens. Side Effects: Appears safe if consumed in foods. In supplement form, consistency of dose and quality can be a concern. Supplements are not recommended for breast cancer survivors. Effectiveness: For the most part, results from clinical studies show that phytoestrogens are not effective for treatment of hot flashes. Drug: Relizen Side Effects: Thought to have action similar to the antidepressant list above (similar way of working) Effectiveness: Some weak studies reported some benefits, but larger studies will need to be done to understand risks, especially since not regulated. Treatment: Acupuncture Side Effects: Uncomfortable for some, often costly. Generally well-tolerated, but multiple visits required. Effectiveness: Individual trials have reported some benefits, but larger studies have not shown any improvement over placebo procedures. However some women do report benefits with this, so it is possible that more well-designed studies are needed to answer this question. Drug: Vitamin E Side Effects: 13% increase risk of heart failure. Might increase rate in those who use high doses for a long time. A higher risk of prostate cancer has also been shown, but applies only to men. Effectiveness: One study showing effective. However the improvement seen in this was only one less hot flash per day compared to placebo. Are the fvgk-gny-doajpki herbal products (botanicals) safe? While safe when taken in moderate amounts through diet, the consumption of extraordinary amounts of soy and isoflavone supplements may be harmful to women with a history of estrogen-dependent cancer, like breast cancer, and possibly to other women as well. More research is needed to determine the safety and effectiveness of botanical treatments. For example, ginseng, dong quai, wild yam, progesterone cream, reflexology, and magnetic devices are sold to help menopausal symptoms, but there are no good studies looking at their safety or effectiveness. To make an informed decision about the use of these treatments, be sure to discuss them with your doctor. Because little is known about many botanicals, the best way to evaluate their safety and effectiveness is to become an educated consumer. Here are some tips to consider when shopping for alternative therapies. Ask yourself the following questions: What is the treatment? What does it involve? How does it work? Why does it work? Are there any risks? What are the side effects? Is it effective? (Ask for evidence or proof) How much does it cost? Once you answer these questions, discuss the therapy with your doctor. Make sure your doctor knows what therapy you are considering in order to discuss possible interactions or side effects with your current treatment. What are warning signs that a product may not be legitimate? When trying to determine whether or not a product is what it says it is, one of the elements you may want to look at is how the product is promoted. Be cautious of products promoted through: Telemarketers. Direct mailings. Infomercials. Ads disguised as valid news articles. Ads in the back of magazines. Additional red flags to look for include: Big claims: If products claim to be a cure for your condition, or gives outrageous claims, be cautious. Source: Be wary if the product is only offered through one branch customer service representative or purchased only through a healthcare provider s office. Ingredients: Make sure all of the active ingredients are listed, and don t trust secret formulas. Testimonials: Remember that only people who are satisfied with a product give testimonials and that they may be getting paid for their endorsement. Other holistic approaches that have been shown to be effective (when compared to placebo too). Cognitive behavioral therapy (consistently shown to be very effective): Can be performed with a local psychologist, or self taught. [place] [employer] has a great article on this if you Google menopause, [place] [employer], CBT Managing Hot Flushes and Night Sweats: A cognitive behavioural self-help guide to the menopause. Laila Landeros & Amanda Avelar Hypnotherapy: Uses deep relaxation, guided imagery to decrease frequency and intensity of hot flashes. Smartphone Mamadou for Hot Flashes: Sofi --> mindfulness/hypnosis approach for hot flash control (I have not used this, but have heard good things from a few colleagues) documented in this encounter [facility] 12-02-2024 Note HNO ID: [id number] Author: ASHLEE MUNOZ MD Service: ? Author Type: Physician Type: Progress Notes Filed: 12/02/2024 13:02 Note Text: In office visit, December 02, 2024 Start review of records, labs, interim events 11:36 AM Kate Reed is 49 year old. 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 Ann-Marie Brooks in [facility] (she lives 1.5 hours from main campus). Had Aquaculturist exam with Gena Thompson CNP at [facility] today. Her priorities are: VMS and weight gain VMS started around age 44 (5 years ago), while on June12/07 cyclically. Bad symptoms even on active pills. H/o endometriosis, s/p laparoscopic surgery for pelvic endometriosis done. S/p cholecystectomy. weight gain for 3 years. Usual weight 150-160 lbs, today 171 lbs. Denies GSM. Has been on OCP since teenager. 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 No abnormal bleeding if on OCP. Abnormal PAP of positive HPV many years ago. vasectomy. TRIED/OFFERED OCP since teenager, helping mood. E patch 37.5 mcg x2/week with daily provera 2.5 mg daily - BTB, x 6 months E oral pill (?type) with daily provera 2.5 daily - BTB Celexa since 20s for axiety. Healthy diet and exercise. HORMONAL HEALTH QUESTIONNAIRE (Patient entered data, with my edits. See the questionnaire link for full review of systems). SYMPTOMS Any sxs (even if mild): VMS; sleep problems; weight gain Bothersome sxs: VMS; weight gain Symptom duration: >5 yrs Sexual health hx: No concerns reported Potential contributing factors: medications; suboptimal sleep Sxs improve on vacation? No Previously tried/offered: hormones; vitamins and supplements; healthy lifestyle changes; antidepressants HORMONAL HISTORY Uterus in situ? Yes Cervix in situ? Yes Ovaries in situ? Yes LMP: Within the last year, about once monthly; 11/11/24 Regular menses in past? Yes Age of menarche: 13 or older G 2 P 2 FLB: Yes; Age: 22 Infertility hx or tx? No Current hormone use: Yes; pills Past hormone use: Yes; patch Duration of exogenous hormone use: > 10 yrs Tolerated? Well Unintended acceptable? Prefers not to answer Chance of unintended : No RISK ASSESSMENT (see link for full ROS) Relevant PMH: active gallbladder problems; migraine; endometriosis Relevant Fam Hx: No close relative with arterial/venous thrombosis, cancer, hip fracture Prior BMD: Never Prior breast biopsy: No Current tobacco use: No Alcohol use per week: < 7 drinks Substance use: Prefers not to answer Other hormonal concerns? No patient response *NOTE - Questionnaire responses within the last 30 days are represented in black ink; Responses between 31-365 days are represented in blue ink. The 10-year ASCVD risk score (Yfn STRINGER, et al., 2019) is: 1.7% Values used to calculate the score: Age: 49 years Sex: Female Is Non- : No Diabetic: No Tobacco smoker: No Systolic Blood Pressure: 136 mmHg Is BP treated: No HDL Cholesterol: 47 mg/dL Total Cholesterol: 201 mg/dL PAST HISTORY (reviewed and updated):Subjective OB History T2 L2 SAB0 IAB0 Ectopic0 Multiple0 Live Births0 ACTIVE PROBLEM LIST Endometriosis, Site Unspecified Gerd (Gastroesophageal Reflux Disease) Anxiety Vertigo PAST MEDICAL HISTORY Diagnosis Date Anxiety 11/24/2020 Biliary dyskinesia 10/30/2013 Chronic cholecystitis without calculus 12/03/2013 Endometriosis, site unspecified Endometriosis Irregular menstrual cycle Irregular periods IRREGULAR MENSTRUATION Mild dysplasia of cervix (FREDO I) Mixed incontinence PAST SURGICAL HISTORY Procedure Laterality Date DELIVERY ONLY , low transverse, x 1 COLONOSCOPY FLX DX W/COLLJ SPEC WHEN PFRMD 09/16/2013 Colonoscopy COLPO OF CERVIX INC UPPER VAG 11/2005 ESOPHAGOGASTRODUODENOSCOPY TRANSORAL DIAGNOSTIC 09/16/2013 EGD LAPS ABD PRTMANDOMENTUM DX W/WO SPEC BR/WA SPX Laparoscopy LASER ABLATION OF ENDOMETRIOSIS LAPS SURG CHOLECYSTECTOMY W/CHOLANGIOGRAPHY 11/24/2013 PAST SURGICAL HISTORY OF 2000 hemorrhoidectomy, anal fissure PAST SURGICAL HISTORY OF 02/26/2022 Placement of retropubic mid-urethral sling FAMILY HISTORY Problem Relation Age of Onset other (Fibro-Myalgia) Mother other (Hypoglycemia) Mother Hypertension Maternal Grandmother Stroke Paternal Grandmother Heart Paternal Grandfather Cancer Paternal Aunt OVARIAN Coronary Artery Disease Paternal Uncle Breast Cancer Paternal cousin 50 - 59 Anesthesia Problems No Family History Uterine Cancer No Family History Social History Tobacco Use Smoking status: Never Smokeless tobacco: Never Substance Use Topics Alcohol use: Yes Comment: OCCASIONALLY, once per week Drug use: No Social History Social History Narrative Not on file EXAM: BP 136/74 Pulse 71 Ht 5' 6 (1.676 m) Wt 171 lb 15.3 oz (78 kg) LMP 11/11/2024 BMI 27.75 (more content not included)... [facility] 12-02-2024 Note HNO ID: [id number] Author: GENA THOMPSON APRN.CNM Service: ? Author Type: Clinical Services Professional Type: Progress Notes Filed: 12/02/2024 10:44 Note Text: Kate is a 49 year old who presents for an annual gynecologic exam without complaints. Still get period: Yes, OCPs Bleeding amount bothersome: No Bleeding between periods: No Period symptoms: Cramps Menopause symptoms: Hot flashes; Night sweats HPV vaccine: No; HPV:negative Last pap smear: 09/01/2023 done in [facility] History of abnormal pap: Yes, history of abnormal PAP smears Hx of positive HPV many years ago Bothersome pelvic pain: No Last mammogram: 2023 normal Done [facility] Patient concerns for STD exposure: No. Mood swings: No Insomnia: Yes Hemorrhoidectomy 6 weeks ago and still having tenderness with bowel movements Seeing Dr. Munoz later this morning to discuss perimenopause symptoms. 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 LMP: 11/14/2024, Having periods Age at Menarche: 12 Age at First : Age at Menopause: Aquaculturist History Comments: Sexual Activity: Yes; Male Contraception: Vasectomy Menstrual Tracking History Flowsheet Row Office Visit from 12/02/2024 in Gynecology Period Cycle (Days) 30 Period Duration (Days) 5 Menstrual Flow Light PAST MEDICAL HISTORY Diagnosis Date Anxiety 11/24/2020 Biliary dyskinesia 10/30/2013 Chronic cholecystitis without calculus 12/03/2013 Endometriosis, site unspecified Endometriosis Irregular menstrual cycle Irregular periods IRREGULAR MENSTRUATION Mild dysplasia of cervix (FREDO I) Mixed incontinence PAST SURGICAL HISTORY Procedure Laterality Date DELIVERY ONLY , low transverse, x 1 COLONOSCOPY FLX DX W/COLLJ SPEC WHEN PFRMD 09/16/2013 Colonoscopy COLPO OF CERVIX INC UPPER VAG 11/2005 ESOPHAGOGASTRODUODENOSCOPY TRANSORAL DIAGNOSTIC 09/16/2013 EGD LAPS ABD PRTMANDOMENTUM DX W/WO SPEC BR/WA SPX Laparoscopy LASER ABLATION OF ENDOMETRIOSIS LAPS SURG CHOLECYSTECTOMY W/CHOLANGIOGRAPHY 11/24/2013 PAST SURGICAL HISTORY OF 2001 hemorrhoidectomy, anal fissure PAST SURGICAL HISTORY OF 02/26/2022 Placement of retropubic mid-urethral sling FAMILY HISTORY Problem Relation Age of Onset other (Fibro-Myalgia) Mother other (Hypoglycemia) Mother Hypertension Maternal Grandmother Heart Paternal Grandfather Stroke Paternal Grandmother Cancer Paternal Aunt OVARIAN Coronary Artery Disease Paternal Uncle Anesthesia Problems No Family History SOCIAL HISTORY Social History Tobacco Use Smoking status: Never Smokeless tobacco: Never Substance Use Topics Alcohol use: Yes Comment: OCCASIONALLY, once per week Drug use: No REVIEW OF SYSTEMS Abdomen: No abdominal pain, nausea, vomiting, diarrhea, or constipation. No bloating, early satiety, indigestion, or increased flatulence. Bladder: No dysuria, gross hematuria, urinary frequency, urinary urgency, or incontinence. Breast: No breast lumps, nipple d/c, overlying skin changes, redness or skin retraction. Allergies and current medication updated:Yes SENSITIVE EXAM: The sensitive examination was discussed with the Patient or Patient's Authorized Head Orthopedic Team Physician. As applicable, any other physician, advance practice provider, medical student, or other health professional student that will be observing or involved in the sensitive examination for educational or training purposes was discussed with the Patient or Authorized Head Orthopedic Team Physician. The Patient or Authorized Head Orthopedic Team Physician has agreed to proceed with the sensitive examination. (Sensitive examination includes inspection and/or palpation of the breasts, pelvis, prostate and anorectal regions). EXAM: BP 136/74 Pulse 71 Ht 5' 6 (1.68m) Wt 172 lb (78.0kg) LMP 11/14/2024 BMI 27.77 kg/(m2). GENERAL: pleasant female in no apparent distress BREAST: soft, non-tender, symmetric, no dominant mass, normal nipple-areolar complex, no lymphadenopathy, and no nipple discharge CHEST: Normal inspiratory effort PELVIC: external genitalia normal, normal Bartholin's glands, urethra, [place]'s glands, no vulvar lesions, no cervical lesions, good vaginal support, physiologic discharge present, normal appearing perineal body and perianal region BIMANUAL: uterus normal size, shape and consistency, no adnexal masses, and non-tender RECTOVAGINAL: rectovaginal exam negative for any masses or nodularity, mild tenderness at 7 o'clock NEURO: alert and oriented x3,exam grossly non-focal EXTREMITIES: normal ASSESSMENT/PLAN: 1) Health maintenance: Pap done with HPV. Mammogram up to date . 2) Perimenopause symptoms, currently taking OCPs, will discuss further with Dr. Munoz later this morning. 3) No evidence of wound infection or disruption at site of hemorrhoidectomy, has virtual post-op scheduled. 4) Follow up one year or sooner as needed Gena Lees (more content not included)... [facility] 12-02-2024 History of Present illness Narrative Kate is a 49 year old who presents for an annual gynecologic exam without complaints. Still get period: Yes, OCPs Bleeding amount bothersome: No Bleeding between periods: No Period symptoms: Cramps Menopause symptoms: Hot flashes; Night sweats HPV vaccine: No; HPV:negative Last pap smear: 09/01/2023 done in [facility] History of abnormal pap: Yes, history of abnormal PAP smears Hx of positive HPV many years ago Bothersome pelvic pain: No Last mammogram: 2023 normal Done [facility] Patient concerns for STD exposure: No. Mood swings: No Insomnia: Yes Hemorrhoidectomy 6 weeks ago and still having tenderness with bowel movements Seeing Dr. Munoz later this morning to discuss perimenopause symptoms. 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 LMP: 11/14/2024, Having periods Age at Menarche: 12 Age at First : Age at Menopause: Aquaculturist History Comments: Sexual Activity: Yes; Male Contraception: Vasectomy Menstrual Tracking History Flowsheet Row Office Visit from 12/02/2024 in Gynecology Period Cycle (Days) 30 Period Duration (Days) 5 Menstrual Flow Light PAST MEDICAL HISTORY Diagnosis Date Anxiety 11/24/2020 Biliary dyskinesia 10/30/2013 Chronic cholecystitis without calculus 12/03/2013 Endometriosis, site unspecified Endometriosis Irregular menstrual cycle Irregular periods IRREGULAR MENSTRUATION Mild dysplasia of cervix (FREDO I) Mixed incontinence PAST SURGICAL HISTORY Procedure Laterality Date DELIVERY ONLY , low transverse, x 1 COLONOSCOPY FLX DX W/COLLJ SPEC WHEN PFRMD 09/16/2013 Colonoscopy COLPO OF CERVIX INC UPPER VAG 11/2005 ESOPHAGOGASTRODUODENOSCOPY TRANSORAL DIAGNOSTIC 09/16/2013 EGD LAPS ABD PRTM&OMENTUM DX W/WO SPEC BR/WA SPX Laparoscopy LASER ABLATION OF ENDOMETRIOSIS LAPS SURG CHOLECYSTECTOMY W/CHOLANGIOGRAPHY 11/24/2013 PAST SURGICAL HISTORY OF 2000 hemorrhoidectomy, anal fissure PAST SURGICAL HISTORY OF 02/26/2022 Placement of retropubic mid-urethral sling FAMILY HISTORY Problem Relation Age of Onset other (Fibro-Myalgia) Mother other (Hypoglycemia) Mother Hypertension Maternal Grandmother Heart Paternal Grandfather Stroke Paternal Grandmother Cancer Paternal Aunt OVARIAN Coronary Artery Disease Paternal Uncle Anesthesia Problems No Family History SOCIAL HISTORY Social History Tobacco Use Smoking status: Never Smokeless tobacco: Never Substance Use Topics Alcohol use: Yes Comment: OCCASIONALLY, once per week Drug use: No REVIEW OF SYSTEMS Abdomen: No abdominal pain, nausea, vomiting, diarrhea, or constipation. No bloating, early satiety, indigestion, or increased flatulence. Bladder: No dysuria, gross hematuria, urinary frequency, urinary urgency, or incontinence. Breast: No breast lumps, nipple d/c, overlying skin changes, redness or skin retraction. Allergies and current medication updated:Yes SENSITIVE EXAM: The sensitive examination was discussed with the Patient or Patient's Authorized Head Orthopedic Team Physician. As applicable, any other physician, advance practice provider, medical student, or other health professional student that will be observing or involved in the sensitive examination for educational or training purposes was discussed with the Patient or Authorized Head Orthopedic Team Physician. The Patient or Authorized Head Orthopedic Team Physician has agreed to proceed with the sensitive examination. (Sensitive examination includes inspection and/or palpation of the breasts, pelvis, prostate and anorectal regions). EXAM: BP 136/74 Pulse 71 Ht 5' 6 (1.68m) Wt 172 lb (78.0kg) LMP 11/14/2024 BMI 27.77 kg/(m^2). GENERAL: pleasant female in no apparent distress BREAST: soft, non-tender, symmetric, no dominant mass, normal nipple-areolar complex, no lymphadenopathy, and no nipple discharge CHEST: Normal inspiratory effort PELVIC: external genitalia normal, normal Bartholin's glands, urethra, [place]'s glands, no vulvar lesions, no cervical lesions, good vaginal support, physiologic discharge present, normal appearing perineal body and perianal region BIMANUAL: uterus normal size, shape and consistency, no adnexal masses, and non-tender RECTOVAGINAL: rectovaginal exam negative for any masses or nodularity, mild tenderness at 7 o'clock NEURO: alert and oriented x3,exam grossly non-focal EXTREMITIES: normal ASSESSMENT/PLAN: 1) Health maintenance: Pap done with HPV. Mammogram up to date . 2) Perimenopause symptoms, currently taking OCPs, will discuss further with Dr. Munoz later this morning. 3) No evidence of wound infection or disruption at site of hemorrhoidectomy, has virtual post-op scheduled. 4) Follow up one year or sooner as needed Gena Thompson APRN.CNM documented in this encounter [facility] 11-17-2024 Instructions Katherine Tirado PA-C - 11/17/2024 11:18 AM EST Red Yeast Rice Extract Fish Oil Capsules documented in this encounter [facility] 11-17-2024 Note HNO ID: [id number] Author: KATHERINE TIRADO PA-C Service: ? Author Type: Physician Commercial Accountant Type: Progress Notes Filed: 11/17/2024 11:46 Note Text: 11/17/2024 Patient presents with: Yearly Exam SUBJECTIVE: This is a 49 year old that is here today for wellness and refill on cymbalta. Overall doing well. Admits not exercising regularly currently and diet has been a little poor during the holidays. Plans to restart treadmill/elliptical. Follows outside [facility] for well woman exam, mammogram this year. Last colonoscopy at [facility] in 2021, due in 10 years, reviewed scanned documents. Taking vitamin D, but not taking calcium. Recent labs in July looked good LDL slightly elevated at 133. PAST MEDICAL HISTORY Diagnosis Date Anxiety 11/24/2020 Biliary dyskinesia 10/30/2013 Chronic cholecystitis without calculus 12/03/2013 Endometriosis, site unspecified Endometriosis Irregular menstrual cycle Irregular periods IRREGULAR MENSTRUATION Mild dysplasia of cervix (FREDO I) Mixed incontinence ALLERGIES Erythromycin and Honey MEDICATIONS Current Outpatient Medications Medication Sig citalopram (CELEXA) 40 mg tablet Take 1 tablet by mouth once daily. cyanocobalamin, vitamin B-12, (VITAMIN B-12 ORAL) Take by mouth once daily. cholecalciferol, vitamin D3, (VITAMIN D3 ORAL) Take by mouth once daily. magnesium carb,citrate,oxide (MAGNESIUM COMPLEX ORAL) Take by mouth once daily. JUNE, 1-20 mg-mcg per tablet Take 1 tablet by mouth once daily. valACYclovir (VALTREX) 500 mg tablet At earliest onset of symptoms take 2 gms , 2 times a day for 1 day meclizine (ANTIVERT) 25 mg tab Take 1 tablet by mouth once daily as needed. rizatriptan (MAXALT) 5 mg tablet Take 1 tablet by mouth as needed. May repeat in 2 hours if needed No current facility-administered medications for this visit. SOCIAL HISTORY Social History Tobacco Use Smoking status: Never Smokeless tobacco: Never Substance Use Topics Alcohol use: Yes Comment: OCCASIONALLY, once per week Drug use: No REVIEW OF SYSTEMS See HPI OBJECTIVE: BP 112/70 (BP Site: Left Arm, BP Position: Sitting, BP Cuff Size: Large Adult) Pulse 98 Resp 12 Ht 167.6 cm (5' 6) Wt 78 kg (172 lb) LMP 11/11/2024 SpO2 98% BMI 27.76 kg/m? APPEARANCE Well appearing, alert, in no acute distress, well-hydrated, well nourished. THROAT normal, no erythema NECK Supple, no adenopathy; thyroid symmetric, normal size, no bruits HEART RRR with normal S1 and S2, no murmurs, no gallops, no JVD appreciated LUNG clear to auscultation ASSESSMENT/PLAN: 1. Elevated cholesterol - ICD9: 272.0, ICD10: E78.00 (primary diagnosis) Red yeast rice extract and fish oil capsules - LIPID PANEL BASIC - COMPLETE BLOOD COUNT AND DIFFERENTIAL - BASIC METABOLIC PANEL Repeat labs in 3 months 2. migraines headache - ICD9: 784.0, ICD10: G44.53 No changes in symptoms, only occurs 1 x month - RIZATRIPTAN 5 MG TABLET The patient indicates understanding of these issues and agrees with the plan. Reviewed red flags and when to seek care sooner. Katherine Tirado PA-C [facility] 11-17-2024 History of Present illness Narrative 11/17/2024 Patient presents with: Yearly Exam SUBJECTIVE: This is a 49 year old that is here today for wellness and refill on cymbalta. Overall doing well. Admits not exercising regularly currently and diet has been a little poor during the holidays. Plans to restart treadmill/elliptical. Follows outside [facility] for well woman exam, mammogram this year. Last colonoscopy at [facility] in 2021, due in 10 years, reviewed scanned documents. Taking vitamin D, but not taking calcium. Recent labs in July looked good LDL slightly elevated at 133. PAST MEDICAL HISTORY Diagnosis Date Anxiety 11/24/2020 Biliary dyskinesia 10/30/2013 Chronic cholecystitis without calculus 12/03/2013 Endometriosis, site unspecified Endometriosis Irregular menstrual cycle Irregular periods IRREGULAR MENSTRUATION Mild dysplasia of cervix (FREDO I) Mixed incontinence ALLERGIES Erythromycin and Honey MEDICATIONS Current Outpatient Medications Medication Sig citalopram (CELEXA) 40 mg tablet Take 1 tablet by mouth once daily. cyanocobalamin, vitamin B-12, (VITAMIN B-12 ORAL) Take by mouth once daily. cholecalciferol, vitamin D3, (VITAMIN D3 ORAL) Take by mouth once daily. magnesium carb,citrate,oxide (MAGNESIUM COMPLEX ORAL) Take by mouth once daily. JUNE12/07, , 1-20 mg-mcg per tablet Take 1 tablet by mouth once daily. valACYclovir (VALTREX) 500 mg tablet At earliest onset of symptoms take 2 gms , 2 times a day for 1 day meclizine (ANTIVERT) 25 mg tab Take 1 tablet by mouth once daily as needed. rizatriptan (MAXALT) 5 mg tablet Take 1 tablet by mouth as needed. May repeat in 2 hours if needed No current facility-administered medications for this visit. SOCIAL HISTORY Social History Tobacco Use Smoking status: Never Smokeless tobacco: Never Substance Use Topics Alcohol use: Yes Comment: OCCASIONALLY, once per week Drug use: No REVIEW OF SYSTEMS See HPI OBJECTIVE: BP 112/70 (BP Site: Left Arm, BP Position: Sitting, BP Cuff Size: Large Adult) Pulse 98 Resp 12 Ht 167.6 cm (5' 6) Wt 78 kg (172 lb) LMP 11/11/2024 SpO2 98% BMI 27.76 kg/m APPEARANCE Well appearing, alert, in no acute distress, well-hydrated, well nourished. THROAT normal, no erythema NECK Supple, no adenopathy; thyroid symmetric, normal size, no bruits HEART RRR with normal S1 and S2, no murmurs, no gallops, no JVD appreciated LUNG clear to auscultation ASSESSMENT/PLAN: 1. Elevated cholesterol - ICD9: 272.0, ICD10: E78.00 (primary diagnosis) Red yeast rice extract and fish oil capsules - LIPID PANEL BASIC - COMPLETE BLOOD COUNT AND DIFFERENTIAL - BASIC METABOLIC PANEL Repeat labs in 3 months 2. migraines headache - ICD9: 784.0, ICD10: G44.53 No changes in symptoms, only occurs 1 x month - RIZATRIPTAN 5 MG TABLET The patient indicates understanding of these issues and agrees with the plan. Reviewed red flags and when to seek care sooner. Katherine Tirado PA-C documented in this encounter [facility] 11-04-2024 Miscellaneous Notes Spoke with pt and information listed below given. Pt verbalizes understanding. Physical scheduled. Lindy Hauser LPN Small amount sent in. Needs seen for any further refills. Thank you Silvina Presley APRN.INDUCTION COORDINATION ENGINEER Prescription Refill Information The patient has been identified by name and date of : Yes Caregiver verified no other encounters exist for this prescription request: Yes Caregiver confirmed with patient/requestor that no other refills are due, in the near future, with this provider at this time: Yes The last office visit in the department: 03/22/23 Does the patient have a future office visit with this provider/department: No Patient has been advised. Requested Prescriptions Pending Prescriptions Disp Refills citalopram (CELEXA) 40 mg tablet 90 tablet 3 Sig: Take 1 tablet by mouth once daily. Katiana An LPN November 04, 2024 11:10 AM documented in this encounter [facility] 11-04-2024 Telephone encounter Note Spoke with pt and information listed below given. Pt verbalizes understanding. Physical scheduled. Lindy Hauser LPN [facility] 11-04-2024 Telephone encounter Note Small amount sent in. Needs seen for any further refills. Thank you Silvina Presley APRN.INDUCTION COORDINATION ENGINEER [facility] 11-04-2024 Telephone encounter Note Prescription Refill Information The patient has been identified by name and date of : Yes Caregiver verified no other encounters exist for this prescription request: Yes Caregiver confirmed with patient/requestor that no other refills are due, in the near future, with this provider at this time: Yes The last office visit in the department: 03/22/23 Does the patient have a future office visit with this provider/department: No Patient has been advised. Requested Prescriptions Pending Prescriptions Disp Refills citalopram (CELEXA) 40 mg tablet 90 tablet 3 Sig: Take 1 tablet by mouth once daily. Katiana An LPN November 04, 2024 11:10 AM [facility] 10-23-2024 Note HNO ID: [id number] Author: CHLOE GERARD APRN.BLOOD BANK CALENDAR CONTROL CLERK Service: ? 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 Staffing Anesthesiologist: Deepak Alonso MD BLOOD BANK CALENDAR CONTROL CLERK: Chloe Gerard APRN.BLOOD BANK CALENDAR CONTROL CLERK Performed by: anesthesiologist and BLOOD BANK CALENDAR CONTROL CLERK Indications and Patient Condition Indications for airway management: anesthesia and airway protection Preoxygenated: yes anesthesia circuit Patient position: sniffing Method: asleep Final Airway Details Final airway type: supraglottic airway Number of attempts at approach: 1 Final Supraglottic Airway: i-gel Size 4 Seal Adequate: yes SIGNATURE: Chloe Gerard APRN.BLOOD BANK CALENDAR CONTROL CLERK PATIENT NAME: Kate Reed DATE: October 23, 2024 TIME: 10:57 AM CSN: [id number] [facility] 09-14-2024 Instructions Nelly Taylor APRN.CNP - 09/14/2024 9:07 AM EDT ASSESSMENT/PLAN: 1. Sore throat - ICD9: 462, ICD10: J02.9 (primary diagnosis) - Group A strep molecular testing negative - Discussed supportive care treatment with fluids, rest and analgesia. - STREP A MOLECULAR (POC) 2. Sinobronchitis - ICD9: 473.9, 490, ICD10: J32.9, J40 - Will begin treatment with as per antibiotic as written, see orders - Supportive care with plenty of fluids, rest, and analgesia prn. - AMOXICILLIN 875 MG-POTASSIUM CLAVULANATE 125 MG TABLET - PREDNISONE 20 MG TABLET - Follow-up with your PCP in 3-5 days if symptoms have not improved or sooner if symptoms worsen - Discussed red flags and need for immediate medical evaluation if any occur. - Discussed supportive care treatment with fluids, rest and analgesia. - Discussed expected course of illness Nelly Taylor APRN.CNP documented in this encounter [facility] 09-14-2024 Note HNO ID: [id number] Author: NELLY TAYLOR APRN.CNP Service: ? Author Type: Nurse Practitioner Type: Progress Notes Filed: 09/14/2024 09:08 Note Text: Subjective HPI Kate Reed is a 49 year old female who presents with cough, chest and nasal congestion for the past 20 days. She was seen here on 09/09 for same, had negative chest xray. She did a COVID test at home. States the cough is worsening and is productive of green/yellow sputum. She cannot taste and cannot smell. She has pain in her teeth and over sinus areas. She has been using Nyquil and Mucinex and tylenol at home. Review of Systems Constitutional: Negative for chills, fever and malaise/fatigue. HENT: Positive for congestion, sinus pain and sore throat. Negative for ear pain. Respiratory: Positive for cough and sputum production. Negative for shortness of breath. Cardiovascular: Negative for chest pain. Gastrointestinal: Negative for diarrhea, nausea and vomiting. Musculoskeletal: Negative for myalgias. Neurological: Positive for headaches. BP 124/84 Pulse 93 Temp 37.1 ?C (98.7 ?F) (Tympanic) Resp 16 Wt 82 kg (180 lb 12.4 oz) LMP 07/23/2024 (Exact Date) SpO2 97% BMI 29.18 kg/m? PAST MEDICAL HISTORY Diagnosis Date Anxiety 11/24/2020 Biliary dyskinesia 10/30/2013 Chronic cholecystitis without calculus 12/03/2013 Endometriosis, site unspecified Endometriosis Irregular menstrual cycle Irregular periods IRREGULAR MENSTRUATION Mild dysplasia of cervix (FREDO I) Mixed incontinence PAST SURGICAL HISTORY Procedure Laterality Date DELIVERY ONLY , low transverse, x 1 COLONOSCOPY FLX DX W/COLLJ SPEC WHEN PFRMD 09/16/2013 Colonoscopy COLPO OF CERVIX INC UPPER VAG 11/2005 ESOPHAGOGASTRODUODENOSCOPY TRANSORAL DIAGNOSTIC 09/16/2013 EGD LAPS ABD PRTMANDOMENTUM DX W/WO SPEC BR/WA SPX Laparoscopy LASER ABLATION OF ENDOMETRIOSIS LAPS SURG CHOLECYSTECTOMY W/CHOLANGIOGRAPHY 11/24/2013 PAST SURGICAL HISTORY OF 2000 hemorrhoidectomy, anal fissure PAST SURGICAL HISTORY OF 02/26/2022 Placement of retropubic mid-urethral sling ALLERGIES Erythromycin and Honey MEDICATIONS JUNE12/07, , 1-20 mg-mcg per tablet Take 1 tablet by mouth once daily. citalopram (CELEXA) 40 mg tablet Take 1 tablet by mouth once daily. valACYclovir (VALTREX) 500 mg tablet At earliest onset of symptoms take 2 gms , 2 times a day for 1 day meclizine (ANTIVERT) 25 mg tab Take 1 tablet by mouth once daily as needed. rizatriptan (MAXALT) 5 mg tablet Take 1 tablet by mouth as needed. May repeat in 2 hours if needed amoxicillin-clavulanate potassium (AUGMENTIN) 875-125 mg per tablet Take 1 tablet by mouth two times a day for 7 days. predniSONE (DELTASONE) 20 mg tablet Take 2 tablets by mouth once daily for 4 days. Take daily with food. FAMILY HISTORY Problem Relation Age of Onset other (Fibro-Myalgia) Mother other (Hypoglycemia) Mother Hypertension Maternal Grandmother Heart Paternal Grandfather Stroke Paternal Grandmother Cancer Paternal Aunt OVARIAN Coronary Artery Disease Paternal Uncle Anesthesia Problems No Family History Social History Tobacco Use Smoking status: Never Smokeless tobacco: Never Substance Use Topics Alcohol use: Yes Comment: OCCASIONALLY, once per week Drug use: No Objective Physical Exam Vitals and nursing note reviewed. Constitutional: General: She is not in acute distress. Appearance: Normal appearance. She is not ill-appearing. HENT: Right Ear: Tympanic membrane, ear canal and external ear normal. Left Ear: Tympanic membrane, ear canal and external ear normal. Nose: Nasal tenderness, mucosal edema, congestion and rhinorrhea present. Mouth/Throat: Pharynx: Uvula midline. Posterior oropharyngeal erythema present. No oropharyngeal exudate. Cardiovascular: Rate and Rhythm: Normal rate and regular rhythm. Heart sounds: Normal heart sounds. Pulmonary: Effort: Pulmonary effort is normal. No respiratory distress. Breath sounds: Normal breath sounds. No wheezing or rales. Comments: Frequent productive cough during exam Musculoskeletal: Cervical back: Neck supple. Lymphadenopathy: Cervical: No cervical adenopathy. Skin: General: Skin is warm and dry. Findings: No erythema or rash. Neurological: Mental Status: She is alert. ASSESSMENT/PLAN: 1. Sore throat - ICD9: 462, ICD10: J02.9 (primary diagnosis) - Group A strep molecular testing negative - Discussed supportive care treatment with fluids, rest and analgesia. - STREP A MOLECULAR (POC) 2. Sinobronchitis - ICD9: 473.9, 490, ICD10: J32.9, J40 - Will begin treatment with as per antibiotic as written, see orders - Supportive care with plenty of fluids, rest, and analgesia prn. - AMOXICILLIN 875 MG-POTASSIUM CLAVULANATE 125 MG TABLET - PREDNISONE 20 MG TABLET - Follow-up with your PCP in 3-5 days if symptoms have not improved or sooner if symptoms worsen (more content not included)... [facility] 09-14-2024 History of Present illness Narrative Subjective HPI Kate Reed is a 49 year old female who presents with cough, chest and nasal congestion for the past 20 days. She was seen here on 09/09 for same, had negative chest xray. She did a COVID test at home. States the cough is worsening and is productive of green/yellow sputum. She cannot taste and cannot smell. She has pain in her teeth and over sinus areas. She has been using Nyquil and Mucinex and tylenol at home. Review of Systems Constitutional: Negative for chills, fever and malaise/fatigue. HENT: Positive for congestion, sinus pain and sore throat. Negative for ear pain. Respiratory: Positive for cough and sputum production. Negative for shortness of breath. Cardiovascular: Negative for chest pain. Gastrointestinal: Negative for diarrhea, nausea and vomiting. Musculoskeletal: Negative for myalgias. Neurological: Positive for headaches. BP 124/84 Pulse 93 Temp 37.1 C (98.7 F) (Tympanic) Resp 16 Wt 82 kg (180 lb 12.4 oz) LMP 07/23/2024 (Exact Date) SpO2 97% BMI 29.18 kg/m PAST MEDICAL HISTORY Diagnosis Date Anxiety 11/24/2020 Biliary dyskinesia 10/30/2013 Chronic cholecystitis without calculus 12/03/2013 Endometriosis, site unspecified Endometriosis Irregular menstrual cycle Irregular periods IRREGULAR MENSTRUATION Mild dysplasia of cervix (FREDO I) Mixed incontinence PAST SURGICAL HISTORY Procedure Laterality Date DELIVERY ONLY , low transverse, x 1 COLONOSCOPY FLX DX W/COLLJ SPEC WHEN PFRMD 09/16/2013 Colonoscopy COLPO OF CERVIX INC UPPER VAG 11/2005 ESOPHAGOGASTRODUODENOSCOPY TRANSORAL DIAGNOSTIC 09/16/2013 EGD LAPS ABD PRTM&OMENTUM DX W/WO SPEC BR/WA SPX Laparoscopy LASER ABLATION OF ENDOMETRIOSIS LAPS SURG CHOLECYSTECTOMY W/CHOLANGIOGRAPHY 11/24/2013 PAST SURGICAL HISTORY OF 2000 hemorrhoidectomy, anal fissure PAST SURGICAL HISTORY OF 02/26/2022 Placement of retropubic mid-urethral sling ALLERGIES Erythromycin and Honey MEDICATIONS JUNEL 12/07, , 1-20 mg-mcg per tablet Take 1 tablet by mouth once daily. citalopram (CELEXA) 40 mg tablet Take 1 tablet by mouth once daily. valACYclovir (VALTREX) 500 mg tablet At earliest onset of symptoms take 2 gms , 2 times a day for 1 day meclizine (ANTIVERT) 25 mg tab Take 1 tablet by mouth once daily as needed. rizatriptan (MAXALT) 5 mg tablet Take 1 tablet by mouth as needed. May repeat in 2 hours if needed amoxicillin-clavulanate potassium (AUGMENTIN) 875-125 mg per tablet Take 1 tablet by mouth two times a day for 7 days. predniSONE (DELTASONE) 20 mg tablet Take 2 tablets by mouth once daily for 4 days. Take daily with food. FAMILY HISTORY Problem Relation Age of Onset other (Fibro-Myalgia) Mother other (Hypoglycemia) Mother Hypertension Maternal Grandmother Heart Paternal Grandfather Stroke Paternal Grandmother Cancer Paternal Aunt OVARIAN Coronary Artery Disease Paternal Uncle Anesthesia Problems No Family History Social History Tobacco Use Smoking status: Never Smokeless tobacco: Never Substance Use Topics Alcohol use: Yes Comment: OCCASIONALLY, once per week Drug use: No Objective Physical Exam Vitals and nursing note reviewed. Constitutional: General: She is not in acute distress. Appearance: Normal appearance. She is not ill-appearing. HENT: Right Ear: Tympanic membrane, ear canal and external ear normal. Left Ear: Tympanic membrane, ear canal and external ear normal. Nose: Nasal tenderness, mucosal edema, congestion and rhinorrhea present. Mouth/Throat: Pharynx: Uvula midline. Posterior oropharyngeal erythema present. No oropharyngeal exudate. Cardiovascular: Rate and Rhythm: Normal rate and regular rhythm. Heart sounds: Normal heart sounds. Pulmonary: Effort: Pulmonary effort is normal. No respiratory distress. Breath sounds: Normal breath sounds. No wheezing or rales. Comments: Frequent productive cough during exam Musculoskeletal: Cervical back: Neck supple. Lymphadenopathy: Cervical: No cervical adenopathy. Skin: General: Skin is warm and dry. Findings: No erythema or rash. Neurological: Mental Status: She is alert. ASSESSMENT/PLAN: 1. Sore throat - ICD9: 462, ICD10: J02.9 (primary diagnosis) - Group A strep molecular testing negative - Discussed supportive care treatment with fluids, rest and analgesia. - STREP A MOLECULAR (POC) 2. Sinobronchitis - ICD9: 473.9, 490, ICD10: J32.9, J40 - Will begin treatment with as per antibiotic as written, see orders - Supportive care with plenty of fluids, rest, and analgesia prn. - AMOXICILLIN 875 MG-POTASSIUM CLAVULANATE 125 MG TABLET - PREDNISONE 20 MG TABLET - Follow-up with your PCP in 3-5 days if symptoms have not improved or sooner if symptoms worsen - Discussed red flags and need for immediate medical evaluation if any occur. - Discussed supportive care treatment with fluids, rest and analgesia. - Discussed expected course of illness Nelly Taylor APRN.CNP documented in this encounter [facility] 09-09-2024 History of Present illness Narrative Radiology Service Progress Note PATIENT NAME: Kate Reed DATE OF SERVICE: September 09, 2024 TIME: 2:39 PM PATIENT IDENTITY VERIFICATION COMPLETED USING TWO (2) IDENTIFIERS: Name and Date of confirmed by patient verbally. FALL SCREENING: Has the patient had 2 falls in the last year or 1 fall with injury or currently using an Ambulatory Assistive Device (Walker, Cane, Wheelchair, Crutches, etc.)? No PATIENT GENDER DATA: Female. status: : No status: NO. PATIENT RELEVANT IMPLANT DATA REVIEWED: Not Applicable PATIENT PRESENTS WITH AN IMPLANTABLE OR ATTACHED TIN WHIZ MACHINE OPERATOR: No RADIOLOGY DEPARTMENT: General X-ray: Exam(s) Completed: Chest X-Ray PERIPHERAL IV DATA: Not applicable SIGNED BY: RT Rain(Jessa) September 09, 2024 2:39 PM documented in this encounter [facility] 09-09-2024 Note HNO ID: [id number] Author: TERELL ALMAGUER RT(Jessa) Service: Radiology Author Type: Technologist Type: Progress Notes Filed: 09/09/2024 14:44 Note Text: Radiology Service Progress Note PATIENT NAME: Kate Reed DATE OF SERVICE: September 09, 2024 TIME: 2:39 PM PATIENT IDENTITY VERIFICATION COMPLETED USING TWO (2) IDENTIFIERS: Name and Date of confirmed by patient verbally. FALL SCREENING: Has the patient had 2 falls in the last year or 1 fall with injury or currently using an Ambulatory Assistive Device (Walker, Cane, Wheelchair, Crutches, etc.)? No PATIENT GENDER DATA: Female. status: : No status: NO. PATIENT RELEVANT IMPLANT DATA REVIEWED: Not Applicable PATIENT PRESENTS WITH AN IMPLANTABLE OR ATTACHED TIN WHIZ MACHINE OPERATOR: No RADIOLOGY DEPARTMENT: General X-ray: Exam(s) Completed: Chest X-Ray PERIPHERAL IV DATA: Not applicable SIGNED BY: Terell Almaguer, RT(R) September 09, 2024 2:39 PM [facility] 09-09-2024 Note HNO ID: [id number] Author: NICKO GEORGE MD Service: ? Author Type: Physician Type: Progress Notes Filed: 09/09/2024 15:14 Note Text: Patient presents with: Cough: Cough, fever, bodyaches, chills x 10 days HPI: Feeling sick for 10 days. She has felt progressively worsening symptoms. She felt bad enough to leave work today. She has had pneumonia before and this somewhat reminds her of it. Positive symptoms: Cough, Shortness of breath, Sore throat, Earache, Nasal Congestion, Rhinorrhea, Fever, Chills, Malaise, Fatigue, Nausea, Negative symptoms: Sinus pressure, Vomiting, Diarrhea, OTC: Ibuprofen, Tylenol, benadryl Had COVID and Influenza vaccines last week. PAST MEDICAL HISTORY Diagnosis Date Anxiety 11/24/2020 Biliary dyskinesia 10/30/2013 Chronic cholecystitis without calculus 12/03/2013 Endometriosis, site unspecified Endometriosis Irregular menstrual cycle Irregular periods IRREGULAR MENSTRUATION Mild dysplasia of cervix (FREDO I) Mixed incontinence MEDICATIONS: Current Outpatient Medications Medication Sig 12/07, , 1-20 mg-mcg per tablet Take 1 tablet by mouth once daily. citalopram (CELEXA) 40 mg tablet Take 1 tablet by mouth once daily. valACYclovir (VALTREX) 500 mg tablet At earliest onset of symptoms take 2 gms , 2 times a day for 1 day meclizine (ANTIVERT) 25 mg tab Take 1 tablet by mouth once daily as needed. rizatriptan (MAXALT) 5 mg tablet Take 1 tablet by mouth as needed. May repeat in 2 hours if needed Naratriptan HCl 1 mg tab TAKE 1 TABLET TWICE DAILY INSTRUCTED X 4 DAYS MONTHLY (STARTING 1 DAY PRIOR TO CYCLE). No current facility-administered medications for this visit. ALLERGIES: ALLERGIES Allergen Reactions Erythromycin GI Upset Honey Swelling VITALS: BP 128/80 Pulse 102 Temp 37.4 ?C (99.4 ?F) (Tympanic) Resp 18 Wt 82.2 kg (181 lb 3.5 oz) LMP 07/23/2024 (Exact Date) SpO2 99% BMI 29.25 kg/m? PHYSICAL EXAM: GEN: mildly ill appearing, pleasant, alert HEENT: PERRL, EOMI, conjunctiva clear Ears: canals clear. TMs without erythema, bulge, or effusion Sinuses: non-tender frontal sinus, non-tender maxillary sinuses Throat: moist mucous membranes, mild erythema, no exudate Neck: supple, no thyromegaly, no lymphadenopathy HEART: borderline fast rate and regular rhythm, no murmurs LUNGS: clear to auscultation, no wheezes or crackles, no increased WOB ASSESSMENT/PLAN: 1. Acute cough - ICD9: 786.2, ICD10: R05.1 - XR CHEST 2V FRONTAL/LAT - no acute findings. - possible new viral URI this week producing worsening symptoms. - Discussed supportive care treatment with rest, cold medicine, and analgesia. Nicko George MD [facility] 09-09-2024 History of Present illness Narrative Patient presents with: Cough: Cough, fever, bodyaches, chills x 10 days HPI: Feeling sick for 10 days. She has felt progressively worsening symptoms. She felt bad enough to leave work today. She has had pneumonia before and this somewhat reminds her of it. Positive symptoms: Cough, Shortness of breath, Sore throat, Earache, Nasal Congestion, Rhinorrhea, Fever, Chills, Malaise, Fatigue, Nausea, Negative symptoms: Sinus pressure, Vomiting, Diarrhea, OTC: Ibuprofen, Tylenol, benadryl Had COVID and Influenza vaccines last week. PAST MEDICAL HISTORY Diagnosis Date Anxiety 11/24/2020 Biliary dyskinesia 10/30/2013 Chronic cholecystitis without calculus 12/03/2013 Endometriosis, site unspecified Endometriosis Irregular menstrual cycle Irregular periods IRREGULAR MENSTRUATION Mild dysplasia of cervix (FREDO I) Mixed incontinence MEDICATIONS: Current Outpatient Medications Medication Sig JUNE12/07, , 1-20 mg-mcg per tablet Take 1 tablet by mouth once daily. citalopram (CELEXA) 40 mg tablet Take 1 tablet by mouth once daily. valACYclovir (VALTREX) 500 mg tablet At earliest onset of symptoms take 2 gms , 2 times a day for 1 day meclizine (ANTIVERT) 25 mg tab Take 1 tablet by mouth once daily as needed. rizatriptan (MAXALT) 5 mg tablet Take 1 tablet by mouth as needed. May repeat in 2 hours if needed Naratriptan HCl 1 mg tab TAKE 1 TABLET TWICE DAILY INSTRUCTED X 4 DAYS MONTHLY (STARTING 1 DAY PRIOR TO CYCLE). No current facility-administered medications for this visit. ALLERGIES: ALLERGIES Allergen Reactions Erythromycin GI Upset Honey Swelling VITALS: BP 128/80 Pulse 102 Temp 37.4 C (99.4 F) (Tympanic) Resp 18 Wt 82.2 kg (181 lb 3.5 oz) LMP 07/23/2024 (Exact Date) SpO2 99% BMI 29.25 kg/m PHYSICAL EXAM: GEN: mildly ill appearing, pleasant, alert HEENT: PERRL, EOMI, conjunctiva clear Ears: canals clear. TMs without erythema, bulge, or effusion Sinuses: non-tender frontal sinus, non-tender maxillary sinuses Throat: moist mucous membranes, mild erythema, no exudate Neck: supple, no thyromegaly, no lymphadenopathy HEART: borderline fast rate and regular rhythm, no murmurs LUNGS: clear to auscultation, no wheezes or crackles, no increased WOB ASSESSMENT/PLAN: 1. Acute cough - ICD9: 786.2, ICD10: R05.1 - XR CHEST 2V FRONTAL/LAT - no acute findings. - possible new viral URI this week producing worsening symptoms. - Discussed supportive care treatment with rest, cold medicine, and analgesia. Nicko George MD documented in this encounter [facility] 09-09-2024 Note Patient Outreach (IN [facility]) ---- KATE REED ([id number]) 1975 F Date Time Provider Department 09/09/24 CAROL LEBRON During your visit today, we recorded the following information about you: Allergies As of Date: 09/09/2024 Noted Allergy Reaction ERYTHROMYCIN 10/15/2005 8 - GI Upset HONEY 07/04/2009 7 - Swelling Date Reviewed: 09/09/2024 Reviewed by: Miryam Pham LPN - Fully Assessed Visit Diagnosis:Encounter for screening mammogram for breast cancer [Z12.31] Order(s):[facility] SCREENING [facility] [[id number]] Order #: [id number] FUTURE Prescriptions as of 09/14/2024 - , 1-20 mg-mcg per tablet Take 1 tablet by mouth once daily. - citalopram (CELEXA) 40 mg tablet Take 1 tablet by mouth once daily. - valACYclovir (VALTREX) 500 mg tablet At earliest onset of symptoms take 2 gms , 2 times a day for 1 day - meclizine (ANTIVERT) 25 mg tab Take 1 tablet by mouth once daily as needed. - rizatriptan (MAXALT) 5 mg tablet Take 1 tablet by mouth as needed. May repeat in 2 hours if needed Meds Comments as of 07/06/2010: Problem List As Of Date 09/09/2024 Noted Resolved Irregular menstrual cycle [N92.6] 08/08/2012 ENDOMETRIOSIS NOS [N80.9] Abdominal pain [R10.9] 09/07/2013 11/24/2020 Altered bowel function [R19.8] 09/07/2013 11/24/2020 GERD (gastroesophageal reflux disease) [K21.9] 09/07/2013 Biliary dyskinesia [K82.8] 10/30/2013 11/24/2020 Chronic cholecystitis without calculus [K81.1] 12/03/2013 11/24/2020 Anxiety [F41.9] 11/24/2020 Vertigo [R42] 10/16/2022 Encounter Status:Closed by GABRIELA SANCHES on 09/14/24 [facility] 07-23-2024 Instructions Lita Schultz MD - 07/23/2024 2:15 PM EDT Sitz Baths Soak in plain warm water (no need for special soaps or salts) 2-5 times a day for ten minutes. Can use a hand held shower head if available. Fiber supplement Benefiber (store brand is OK): start with 1 teaspoon per day in any noncarbonated beverage. Start with a low dose and go up slowly. Increase fiber until you get to 1-2 tablespoons per day (3 teaspoons= 1 tablespoon). You may need to adjust your fiber dose based on reaching you goal of healthy, soft, easy to pass bowel movements. Every patient is different, so you may need to adjust. You MUST drink plenty of fluids when taking fiber OR Fiber gummies: ensure 4-6g of fiber per day Other things to try Drink plenty of water (minimum 64 ounces) Squatty potty (can purchase at [employer] or on [employer]) Stool Softeners (if needed) maximum doses listed, start low and increase in a stepwise fashion Miralax (polyethylene glycol) - can take up to 1 capful three times a day Colace (docusate) - can take up to 100 mg twice a day Senokot (sennosides) - can take up to 4 (34.4 mg) tablets twice a day (start with 2 tablets (17.2 mg)) documented in this encounter [facility] 07-23-2024 History and physical note COLORECTAL SURGERY New Patient Visit Chief Complaint: Hemorrhoids History of Present Illness: Kate Reed is a 48 year old female who presents for hemorrhoids. The patient complains of prolapse and thrombosis (which is very painful). This initially began couple years. The patient does complain of pain. The pattern of this is cyclical. The patient does complain of bulging/protrusion of tissues. The patient does complain of swelling. The patient does complain of pruritus. The patient does complain of pain with defecation. She had a hemorrhoidectomy in 2000. The patient has 1 bowel movements per day. The patient does complain of bleeding ( with wiping/not in the toilet). The patient is not taking a stool softener. The patient is not taking a fiber supplement. She takes a prebiotic and probiotic gummy that helps regulate her stools. The patient is straining to have a bowel movement. The patient's last colonoscopy was 09/14/22 and showed Impression: - Non-thrombosed external hemorrhoids and internal hemorrhoids that prolapse with straining, but require manual replacement into the anal canal (Grade III) found on digital rectal exam. Left lateral external hemorrhoidal tag ??Tortuous colon. ??The examination was otherwise normal. ??No specimens collected.. PAST MEDICAL HISTORY 11/24/2020: Anxiety 10/30/2013: Biliary dyskinesia 12/03/2013: Chronic cholecystitis without calculus No date: Endometriosis, site unspecified Comment: Endometriosis No date: Irregular menstrual cycle Comment: Irregular periods No date: IRREGULAR MENSTRUATION No date: Mild dysplasia of cervix (FREDO I) No date: Mixed incontinence PAST SURGICAL HISTORY No date: DELIVERY ONLY Comment: , low transverse, x 1 09/16/2013: COLONOSCOPY FLX DX W/COLLJ SPEC WHEN PFRMD Comment: Colonoscopy 11/2005: COLPO OF CERVIX INC UPPER VAG 09/16/2013: ESOPHAGOGASTRODUODENOSCOPY TRANSORAL DIAGNOSTIC Comment: EGD No date: LAPS ABD PRTM&OMENTUM DX W/WO SPEC BR/WA SPX Comment: Laparoscopy LASER ABLATION OF ENDOMETRIOSIS 11/24/2013: LAPS SURG CHOLECYSTECTOMY W/CHOLANGIOGRAPHY 2000: PAST SURGICAL HISTORY OF Comment: hemorrhoidectomy, anal fissure 02/26/2022: PAST SURGICAL HISTORY OF Comment: Placement of retropubic mid-urethral sling FAMILY HISTORY Problem Relation Age of Onset other (Fibro-Myalgia) Mother other (Hypoglycemia) Mother Hypertension Maternal Grandmother Heart Paternal Grandfather Stroke Paternal Grandmother Cancer Paternal Aunt OVARIAN Coronary Artery Disease Paternal Uncle Anesthesia Problems No Family History Social History Tobacco Use Smoking status: Never Smokeless tobacco: Never Substance Use Topics Alcohol use: Yes Comment: OCCASIONALLY, once per week Drug use: No ALLERGIES Allergen Reactions Erythromycin GI Upset Honey Swelling Current Outpatient Medications Medication Sig Dispense Refill 12/07, , 1-20 mg-mcg per tablet Take 1 tablet by mouth once daily. citalopram (CELEXA) 40 mg tablet Take 1 tablet by mouth once daily. 90 tablet 3 valACYclovir (VALTREX) 500 mg tablet At earliest onset of symptoms take 2 gms , 2 times a day for 1 day 8 tablet 3 Naratriptan HCl 1 mg tab TAKE 1 TABLET TWICE DAILY INSTRUCTED X 4 DAYS MONTHLY (STARTING 1 DAY PRIOR TO CYCLE). 9 tablet 2 meclizine (ANTIVERT) 25 mg tab Take 1 tablet by mouth once daily as needed. 15 tablet 2 rizatriptan (MAXALT) 5 mg tablet Take 1 tablet by mouth as needed. May repeat in 2 hours if needed 20 tablet 0 No current facility-administered medications for this visit. Review of Systems / PACC screen: Do you have difficulty climbing a full flight of stairs without feeling short of breath? no Do you require oxygen for your breathing or have your gone to an emergency department because of breathing problems? no Are you on dialysis or have you been told that your kidneys do not work well as they should? no Do have an implanted cardiac device (pacemaker, defibrillator etc.) that has not been checked in the last 6 months? no Have you had an organ transplant? no Have you been told that you had excessive bleeding during surgical procedures or do you take blood thinning medications other than aspirin? no Have you ever had a heart attack, heart stents/surgery, valve problems, or other heart problems? no Have you had a stroke, seizures, or unexplained loss of consciousness? no Do you have a neurologic condition like Parkinson's disease or multiple sclerosis? No- vertigo Have you or a blood relative had a life-threatening reaction to anesthesia? no Do you have cirrhosis of the liver or other liver disease? no Have you had a blood clot within the past year? no Do you take insulin or other injections for diabetes? no Do you have sleep apnea or have you been told you may have sleep apnea? no Do you have other implanted devices (deep brain stimulator, spinal cord stimulator, etc.)? no Physical Exam: 07/23/24 1352 BP: 135/67 BP Site: Right Arm BP Position: Sitting Pulse: 82 Resp: 17 Temp: 36.4 C (97.6 F) TempSrc: Temporal SpO2: 99% Weight: 78.5 kg (173 lb) Height: 167.6 cm (5' 6) Body mass index is 27.92 kg/m . General Appearance: Well appearing, alert, in no acute distress, well-hydrated, well nourished. Skin: Skin color, texture, turgor normal, no suspicious rashes or lesions Head: Normocephalic, atraumatic Eyes: Sclera anicteric Oropharynx: oropharynx clear; lips/mucosa normal Neck: trachea midline Lungs: nonlabored breathing on room air, no increased work of breathing, no wheezing Heart: regular rate and rhythm Edema: no Abdomen: nondistended Extremities: No deformities, edema, skin discoloration, clubbing or cyanosis Neuro: CN II-XII intact; moves all extremities Anorectal: Anus: closed Tone: normal External skin: healthy, there is a flat skin tag in the posterior midline, small thrombosis Digital exam: no masses Anoscopy Procedure explained to patient, who has provided verbal consent. Patient was placed in the prone jackknife position. External exam documented above. Digital exam documented above. A well-lubricated anoscope was placed into the anal canal. Findings: small internal hemorrhoids posteriorly, otherwise normal anal canal. The patient tolerated the procedure well without any immediate complications Break And Load Operator present: Yes, Jonah Lambert Assessment Assessment & Diagnosis: Encounter Diagnosis ICD-10-CM 1. External hemorrhoid K64.4 2. Hemorrhoidal skin tag K64.4 Treatment plan: She is going to medical management and get her straining under control After this she will message us about having the skin tag removed under anesthesia. (We will update her H&P in preop) Lita Schultz MD, FACS, FASCRS campus security officer Department of Colorectal Surgery Digestive Disease and Surgery [place] I have confirmed and edited as necessary, the PFSH and ROS obtained by others. [facility] 07-23-2024 History and physical note COLORECTAL SURGERY New Patient Visit Chief Complaint: Hemorrhoids History of Present Illness: Kate Reed is a 48 year old female who presents for hemorrhoids. The patient complains of prolapse and thrombosis (which is very painful). This initially began couple years. The patient does complain of pain. The pattern of this is cyclical. The patient does complain of bulging/protrusion of tissues. The patient does complain of swelling. The patient does complain of pruritus. The patient does complain of pain with defecation. She had a hemorrhoidectomy in 2000. The patient has 1 bowel movements per day. The patient does complain of bleeding ( with wiping/not in the toilet). The patient is not taking a stool softener. The patient is not taking a fiber supplement. She takes a prebiotic and probiotic gummy that helps regulate her stools. The patient is straining to have a bowel movement. The patient's last colonoscopy was 09/14/22 and showed Impression: - Non-thrombosed external hemorrhoids and internal hemorrhoids that prolapse with straining, but require manual replacement into the anal canal (Grade III) found on digital rectal exam. Left lateral external hemorrhoidal tag ??Tortuous colon. ??The examination was otherwise normal. ??No specimens collected.. PAST MEDICAL HISTORY 11/24/2020: Anxiety 10/30/2013: Biliary dyskinesia 12/03/2013: Chronic cholecystitis without calculus No date: Endometriosis, site unspecified Comment: Endometriosis No date: Irregular menstrual cycle Comment: Irregular periods No date: IRREGULAR MENSTRUATION No date: Mild dysplasia of cervix (FREDO I) No date: Mixed incontinence PAST SURGICAL HISTORY No date: DELIVERY ONLY Comment: , low transverse, x 1 09/16/2013: COLONOSCOPY FLX DX W/COLLJ SPEC WHEN PFRMD Comment: Colonoscopy 11/2005: COLPO OF CERVIX INC UPPER VAG 09/16/2013: ESOPHAGOGASTRODUODENOSCOPY TRANSORAL DIAGNOSTIC Comment: EGD No date: LAPS ABD PRTM&OMENTUM DX W/WO SPEC BR/WA SPX Comment: Laparoscopy LASER ABLATION OF ENDOMETRIOSIS 11/24/2013: LAPS SURG CHOLECYSTECTOMY W/CHOLANGIOGRAPHY 2000: PAST SURGICAL HISTORY OF Comment: hemorrhoidectomy, anal fissure 02/26/2022: PAST SURGICAL HISTORY OF Comment: Placement of retropubic mid-urethral sling FAMILY HISTORY Problem Relation Age of Onset other (Fibro-Myalgia) Mother other (Hypoglycemia) Mother Hypertension Maternal Grandmother Heart Paternal Grandfather Stroke Paternal Grandmother Cancer Paternal Aunt OVARIAN Coronary Artery Disease Paternal Uncle Anesthesia Problems No Family History Social History Tobacco Use Smoking status: Never Smokeless tobacco: Never Substance Use Topics Alcohol use: Yes Comment: OCCASIONALLY, once per week Drug use: No ALLERGIES Allergen Reactions Erythromycin GI Upset Honey Swelling Current Outpatient Medications Medication Sig Dispense Refill 12/07, , 1-20 mg-mcg per tablet Take 1 tablet by mouth once daily. citalopram (CELEXA) 40 mg tablet Take 1 tablet by mouth once daily. 90 tablet 3 valACYclovir (VALTREX) 500 mg tablet At earliest onset of symptoms take 2 gms , 2 times a day for 1 day 8 tablet 3 Naratriptan HCl 1 mg tab TAKE 1 TABLET TWICE DAILY INSTRUCTED X 4 DAYS MONTHLY (STARTING 1 DAY PRIOR TO CYCLE). 9 tablet 2 meclizine (ANTIVERT) 25 mg tab Take 1 tablet by mouth once daily as needed. 15 tablet 2 rizatriptan (MAXALT) 5 mg tablet Take 1 tablet by mouth as needed. May repeat in 2 hours if needed 20 tablet 0 No current facility-administered medications for this visit. Review of Systems / PACC screen: Do you have difficulty climbing a full flight of stairs without feeling short of breath? no Do you require oxygen for your breathing or have your gone to an emergency department because of breathing problems? no Are you on dialysis or have you been told that your kidneys do not work well as they should? no Do have an implanted cardiac device (pacemaker, defibrillator etc.) that has not been checked in the last 6 months? no Have you had an organ transplant? no Have you been told that you had excessive bleeding during surgical procedures or do you take blood thinning medications other than aspirin? no Have you ever had a heart attack, heart stents/surgery, valve problems, or other heart problems? no Have you had a stroke, seizures, or unexplained loss of consciousness? no Do you have a neurologic condition like Parkinson's disease or multiple sclerosis? No- vertigo Have you or a blood relative had a life-threatening reaction to anesthesia? no Do you have cirrhosis of the liver or other liver disease? no Have you had a blood clot within the past year? no Do you take insulin or other injections for diabetes? no Do you have sleep apnea or have you been told you may have sleep apnea? no Do you have other implanted devices (deep brain stimulator, spinal cord stimulator, etc.)? no Physical Exam: 07/23/24 1352 BP: 135/67 BP Site: Right Arm BP Position: Sitting Pulse: 82 Resp: 17 Temp: 36.4 C (97.6 F) TempSrc: Temporal SpO2: 99% Weight: 78.5 kg (173 lb) Height: 167.6 cm (5' 6) Body mass index is 27.92 kg/m . General Appearance: Well appearing, alert, in no acute distress, well-hydrated, well nourished. Skin: Skin color, texture, turgor normal, no suspicious rashes or lesions Head: Normocephalic, atraumatic Eyes: Sclera anicteric Oropharynx: oropharynx clear; lips/mucosa normal Neck: trachea midline Lungs: nonlabored breathing on room air, no increased work of breathing, no wheezing Heart: regular rate and rhythm Edema: no Abdomen: nondistended Extremities: No deformities, edema, skin discoloration, clubbing or cyanosis Neuro: CN II-XII intact; moves all extremities Anorectal: Anus: closed Tone: normal External skin: healthy, there is a flat skin tag in the posterior midline, small thrombosis Digital exam: no masses Anoscopy Procedure explained to patient, who has provided verbal consent. Patient was placed in the prone jackknife position. External exam documented above. Digital exam documented above. A well-lubricated anoscope was placed into the anal canal. Findings: small internal hemorrhoids posteriorly, otherwise normal anal canal. The patient tolerated the procedure well without any immediate complications Break And Load Operator present: Yes, Jonah Lambert Assessment Assessment & Diagnosis: Encounter Diagnosis ICD-10-CM 1. External hemorrhoid K64.4 2. Hemorrhoidal skin tag K64.4 Treatment plan: She is going to medical management and get her straining under control After this she will message us about having the skin tag removed under anesthesia. (We will update her H&P in preop) Lita Schultz MD, FACS, FASCRS campus security officer Department of Colorectal Surgery Digestive Disease and Surgery [place] I have confirmed and edited as necessary, the PFSH and ROS obtained by others. documented in this encounter [facility] 04-02-2024 Hospital Discharge instructions Patient Education 04/02/2024 09:15:07 Possible Causes of Low Back or Leg Pain Possible Causes of Low Back or Leg Pain BIG: The symptoms in your back or leg may be due to pressure on a nerve. This pressure may be caused by a damaged disk or by abnormal bone growth. Either way, you may feel pain, burning, tingling, or numbness. If you have pressure on a nerve that connects to the sciatic nerve, pain may shoot down your leg. Pressure from the disk Constant wear and tear can weaken a disk over time and cause back pain. The disk can then be damaged by a sudden movement or injury. If its soft center starts to bulge, the disk may press on a nerve. Or the outside of the disk may tear, and the soft center may squeeze through and pinch a nerve. Pressure from bone As a disk wears out, the vertebrae right above and below the disk start to touch. This can put pressure on a nerve. Often, abnormal bone (called bone spurs) grows where the vertebrae rub against each other. This can cause the foramen or the spinal canal to narrow (called stenosis) and press against a nerve. [id number] [employer]. [address] [place] [address]. All rights reserved. This information is not intended as a substitute for professional medical care. Always follow your healthcare professional's instructions. Follow Up Care 04/02/2024 07:49:53 With:PROSPER COBOS APRN, CNP Address: [address] [place] [address] [place] [address]- When:2-4 days [facility] 04-02-2024 Note Discharge Instructions Thank you for allowing [facility] to assist you with your healthcare needs. The following is important discharge information regarding your hospital visit. Diagnosis from Today's Visit Leg pain What to Do Next Instructions from Your Care Team No qualifying data available. Post Acute Orders No qualifying data available. You Need to Schedule the Following Appointments Follow Up with POONAM, PROSPER D CHECKER - INDUCTION COORDINATION ENGINEER When: When:Within 2-4 days Where:[address] [facility] [place] [address]- Allergies Honey Medications Please ask your primary doctor or pharmacist before taking any other medication not listed, including over the counter drugs, herbal medications, vitamins and or supplements as they may interact with your home medications. What How Much When Instructions Last Dose Unchanged citalopram (citalopram 40 mg oral tablet) 1 tab(s) by mouth Once a day Duration: 90 Days Unchanged estradiol (Estradiol Patch 0.0375 mg/ 24 hours twice weekly transdermal film, extended release) 1 patch(es) Transdermal 2 times a week apply to skin Unchanged ethinyl estradiol-norethindrone (Junel oral tablet) 1 tab(s) by mouth Once a day Unchanged medroxyPROGESTERone (medroxyPROGESTERone 2.5 mg oral tablet) 1 tab(s) by mouth Every day Unchanged Misc Medication (3 in 1 magnesium tablet) Unchanged multivitamin (Vitamin B Complex with C oral tablet) by mouth Once a day Unchanged multivitamin (Vitamin D and K oral tablet) Unchanged nutritional supplement Probiotic and prebiotic gummy Unchanged rizatriptan (rizatriptan 10 mg oral tablet) 1 tab(s) by mouth Once as needed for as needed for migraine headache Unchanged valACYclovir (valACYclovir 500 mg oral tablet) TAKE 4 TABLETS BY MOUTH TWICE A DAY FOR 1 DAY AT EARLIEST ONSET OF SYMPTOMS Unchanged vitamin E by mouth Please take this list to your next doctor s visit. Bring all medications you take, including over the counter medications, herbals and other supplements with you to your doctor s visit. Patients and families are reminded to discard old lists and to update any records with all medication providers or retail pharmacies. Education Materials Possible Causes of Low Back or Leg Pain BIG: The symptoms in your back or leg may be due to pressure on a nerve. This pressure may be caused by a damaged disk or by abnormal bone growth. Either way, you may feel pain, burning, tingling, or numbness. If you have pressure on a nerve that connects to the sciatic nerve, pain may shoot down your leg. Pressure from the disk Constant wear and tear can weaken a disk over time and cause back pain. The disk can then be damaged by a sudden movement or injury. If its soft center starts to bulge, the disk may press on a nerve. Or the outside of the disk may tear, and the soft center may squeeze through and pinch a nerve. Pressure from bone As a disk wears out, the vertebrae right above and below the disk start to touch. This can put pressure on a nerve. Often, abnormal bone (called bone spurs) grows where the vertebrae rub against each other. This can cause the foramen or the spinal canal to narrow (called stenosis) and press against a nerve. [employer]. [address] [place] [address]. All rights reserved. This information is not intended as a substitute for professional medical care. Always follow your healthcare professional's instructions. Additional Information VACCINATE! IT SAVES LIVES! Members of the community who have not yet received the COVID-19 vaccine and would like to receive it can visit one of [facility] vaccine clinics. There are many vaccine clinic locations within the [facility]. For locations and available times, please visit www.gettheshot.coronavirus.[place].gov/. It is important to note that some COVID mobile vaccine clinics are held outdoors and may be canceled in rainy or stormy conditions. To learn more about pediatric vaccinations (ages 5-11), we invite you to visit the [facility] webpage. [email or web address] To learn more about the COVID-19 vaccine, we invite you to visit the CDC website for a list of frequently asked questions. https://www.cdc.gov/coronavirus/2019-n cov/vaccines/faq.html [facility] Access Instructions: Stay connected with your healthcare team and access your personal medical information anytime with the [facility] Patient Portal. If you would like a full copy of your medical records please contact the [facility] [facility] Medical Records Department Saturday through Saturday between 8a.m. and 4:30p.m. Please follow the directions below to access the portal: 1.Access the email account you provided upon registration to the [facility].2.Look for an invitation email from [facility].3.Open the email and access the invitation link: Accept Invitation to [facility].Fill in the required gutierrez to create your account. Sign into [email or web address] with your username and password that you created in the above steps to stay up to date. You can then view a summary of results, a summary of your visits, and the ability to download your summaries to your computer or send the information securely to a physician. Remember that your healthcare information is confidential, so carefully consider who you will allow to register on the [facility] Patient Portal for access to your information. You can also access the [facility] Patient Portal on the [employer]. Simply click on Health Records under [employer] and then click on the [employer] logo. HOW TO SAFELY DISPOSE OF PRESCRIPTION MEDICATIONS Please use one of the following methods to safely dispose of your unused medications. 1.Use a drug disposal kit: the drug disposal pouch allows you to safely discard your old and unused drugs. Ask your nurse to give you one when you are discharged.2.Visit a local take-back location: Many local pharmacies and police departments have programs that collect old and unwanted prescription drugs. Call your local pharmacy or go to http://[email or web address].CloudWork/7P4Up6s to find one close to you.3.Make use of household items: Use cat litter or old coffee grounds to dispose medications if other options are not available. Mix your drugs with these household products, seal them in an airtight container and throw it into the garbage. Call [facility]: [phone] to be sure your drugs can be disposed of in this way. Some medicines may require a different approach.4.Never flush your medications down the toilet. IF YOU HAVE BEEN PRESCRIBED AN OPIOIDS FOR PAIN If you have been prescribed an opioid (such as hydrocodone, oxycodone or morphine), it is critical to understand the possible side effects and risks of opioid pain medications. Even when taken as directed, opioids can have several side effects including: Tolerance, meaning you might need to take more of a medication for the same pain relief. Nausea, vomiting and/or constipation. Sleepiness, dizziness, dry mouth, confusion, depression or itching. Physical dependence, meaning you have withdrawal symptoms when a medication is stopped ? this can develop within a few days. KNOW YOUR RESPONSIBILITIES It is important to know exactly how much and how often to take the opioid pain medications you are prescribed. Never take opioids in higher amounts or more often than prescribed. Do not combine opioids with alcohol or other drugs that cause drowsiness, such as benzodiazepines, also known as benzos, including diazepam and alprazolam, muscle relaxants or sleep aids. Never sell or share prescription opioids. This is illegal. Store opioids in a secure place and out of reach of others (including children, family, friends and visitors). The last page(s) of this document has been signed and retained as a CHART COPY Signatures Patient Education Materials Possible Causes of Low Back or Leg Pain Medication Leaflets My discharge plan and instructions have been reviewed and explained to me and I,KATE REED understand my current condition and have read and understand these discharge instructions. I have received a written copy of the plan/instructions. If I have questions, I am aware that I should contact my doctor. Patient/Head Orthopedic Team Physician Signature: _ Date/Time: Relationship to Patient: Witness Name/Signature: Date/Time: [facility] 08-12-2023 Miscellaneous Notes JENNIFFER 12/07/22 with YANELI MILLER none scheduled- needed 6 month follow up Refill 05/03/23 with qty: 12 and 2 refills SANJAY Hutchins Assessment/Plan ASSESSMENT/PLAN: 1. Menstrual migraine without status migrainosus, not intractable - ICD9: 346.40, ICD10: G43.829 (primary diagnosis) 2. Migrainous dizziness - ICD9: 780.4, ICD10: R42 Patient doing well on Amerge as Rx'd above during menses as well as gabapentin 300mg QHS. As patient now down to Topamax 25mg QAM, will try to stop given effectiveness of these other medications. Rarely needing Maxalt and thus not needing refills (knows never to take Maxalt and Amerge on same day). Discussed possibly stopping gabapentin, but in setting of stopping Topamax, feel best that we continue gabapentin for now. SE and ADRs d/w pt. Refills provided. Follow up 6 months. Frandy Smith MD documented in this encounter [facility] 05-30-2023 History of Present illness Narrative This note was created using [employer]. Subjective Kate Reed is a 47 year old female. HPI Patient presents with sore throat, right ear pain, congestion and cough over the past 3 days. No fever. She did develop a headache last night. Her granddaughter was sick recently. She did also fly back from [facility] just prior to the symptoms starting. No home COVID test done. Review of Systems Constitutional: Negative. HENT: Positive for congestion, ear pain, rhinorrhea, sneezing, sore throat and voice change. Respiratory: Positive for cough. Negative for shortness of breath. Cardiovascular: Negative. Gastrointestinal: Negative. Genitourinary: Negative. Musculoskeletal: Negative. Neurological: Positive for headaches. All other systems reviewed and are negative. PAST MEDICAL HISTORY Diagnosis Date Anxiety 11/24/2020 Biliary dyskinesia 10/30/2013 Chronic cholecystitis without calculus 12/03/2013 Endometriosis, site unspecified Endometriosis Irregular menstrual cycle Irregular periods IRREGULAR MENSTRUATION Mild dysplasia of cervix (FREDO I) Mixed incontinence Current Outpatient Medications Medication Sig Dispense Refill rizatriptan (MAXALT) 10 mg tablet Take 1 tablet by mouth as needed (at onset of headache. May repeat after 2 hours.). Do not exceed 20 mg per day. 12 tablet 2 LORazepam (ATIVAN) 0.5 mg For panic attacks once or twice daily 10 tablet 0 Naratriptan HCl 1 mg tab TAKE 1 TABLET TWICE DAILY INSTRUCTED X 4 DAYS MONTHLY (STARTING 1 DAY PRIOR TO CYCLE). 9 tablet 2 meclizine (ANTIVERT) 25 mg tab Take 1 tablet by mouth once daily as needed. 15 tablet 2 valACYclovir (VALTREX) 500 mg tablet At earliest onset of symptoms take 2 gms , 2 times a day for 1 day 8 tablet 3 citalopram (CELEXA) 40 mg tablet Take 1 tablet by mouth once daily. (Patient taking differently: Take 40 mg by mouth once daily. Taking 20 mg) 90 tablet 3 rizatriptan (MAXALT) 5 mg tablet Take 1 tablet by mouth as needed. May repeat in 2 hours if needed 20 tablet 0 metFORMIN (GLUCOPHAGE) 500 mg tablet Take 1 tablet by mouth daily with breakfast. (Patient not taking: Reported on 05/30/2023) 30 tablet 2 gabapentin (NEURONTIN) 300 mg capsule Take 1 capsule by mouth daily at bedtime for 180 days. (Patient not taking: Reported on 05/30/2023) 90 capsule 1 No current facility-administered medications for this visit. PAST SURGICAL HISTORY Procedure Laterality Date DELIVERY ONLY , low transverse, x 1 COLONOSCOPY FLX DX W/COLLJ SPEC WHEN PFRMD 09/16/2013 Colonoscopy COLPO OF CERVIX INC UPPER VAG 11/2005 ESOPHAGOGASTRODUODENOSCOPY TRANSORAL DIAGNOSTIC 09/16/2013 EGD LAPS ABD PRTM&OMENTUM DX W/WO SPEC BR/WA SPX Laparoscopy LASER ABLATION OF ENDOMETRIOSIS LAPS SURG CHOLECYSTECTOMY W/CHOLANGIOGRAPHY 11/24/2013 PAST SURGICAL HISTORY OF 2000 hemorrhoidectomy, anal fissure S CPLO RAMIRO BLADDER SLING 02/2022 FAMILY HISTORY Problem Relation Age of Onset other (Fibro-Myalgia) Mother other (Hypoglycemia) Mother Hypertension Maternal Grandmother Heart Paternal Grandfather Stroke Paternal Grandmother Cancer Paternal Aunt OVARIAN Coronary Artery Disease Paternal Uncle Anesthesia Problems No Family History Social History Tobacco Use Smoking status: Never Smokeless tobacco: Never Substance Use Topics Alcohol use: Yes Comment: OCCASIONALLY, once per week Drug use: No Objective BP 120/78 Pulse 82 Temp 36.9 C (98.4 F) Resp 21 Wt 81.6 kg (180 lb) LMP 12/07/2022 (Exact Date) SpO2 99% BMI 29.05 kg/m Physical Exam Vitals reviewed. Constitutional: Appearance: Normal appearance. She is not ill-appearing. HENT: Head: Normocephalic and atraumatic. Right Ear: Tympanic membrane, ear canal and external ear normal. Left Ear: Ear canal and external ear normal. Ears: Comments: Clear middle ear effusion on left Mouth/Throat: Mouth: Mucous membranes are moist. Pharynx: Oropharynx is clear. No oropharyngeal exudate or posterior oropharyngeal erythema. Cardiovascular: Rate and Rhythm: Normal rate and regular rhythm. Heart sounds: Normal heart sounds. Pulmonary: Effort: Pulmonary effort is normal. Breath sounds: Normal breath sounds. Musculoskeletal: Cervical back: Neck supple. Skin: General: Skin is warm and dry. Neurological: Mental Status: She is alert. Assessment and Plan ASSESSMENT/PLAN: 1. Acute URI - ICD9: 465.9, ICD10: J06.9 - Discussed viral etiology and rationale for treatment. - Alere Strep Test neg, no culture pending - Symptomatic treatment with prn analgesia - Supportive care with fluids and rest - The patient may also use OTC cough and cold meds as needed and warm salt water gargles, throat lozenges and/or OTC throat spray as needed. - Follow up in 3-5 days if symptoms persist or sooner if worsening of symptoms - STREP A MOLECULAR (POC) - COVID WITH FLUA+B, ROUTINE Sita Garza PA-C documented in this encounter [facility] 05-30-2023 Instructions Sita Garza PA-C - 05/30/2023 8:36 AM EDT May continue mucinex Cepacol throat lozenges Flonase nasal spray If you develop fever after 5 days or not better after 10 days of symptoms be seen again documented in this encounter [facility] 05-01-2023 Miscellaneous Notes Rx the medication Regards, Carol Lebron MD documented in this encounter [facility] 02-18-2023 Miscellaneous Notes JENNIFFER: 12/07/22 with [facility] NOV: 06/07/23 with [facility] Refill 12/07/22 qty: 9 and 5 refills Jaclyn Ortiz LPN ASSESSMENT/PLAN ASSESSMENT/PLAN: 1. Menstrual migraine without status migrainosus, not intractable - ICD9: 346.40, ICD10: G43.829 (primary diagnosis) 2. Migrainous dizziness - ICD9: 780.4, ICD10: R42 Patient doing well on Amerge as Rx'd above during menses as well as gabapentin 300mg QHS. As patient now down to Topamax 25mg QAM, will try to stop given effectiveness of these other medications. Rarely needing Maxalt and thus not needing refills (knows never to take Maxalt and Amerge on same day). Discussed possibly stopping gabapentin, but in setting of stopping Topamax, feel best that we continue gabapentin for now. SE and ADRs d/w pt. Refills provided. Follow up 6 months. Frandy Smith MD documented in this encounter [facility] 12-07-2022 History of Present illness Narrative ESTABLISHED PATIENT VISIT CHIEF COMPLAINT: Follow up Migraines and Dizziness HISTORY OF PRESENT ILLNESS: Kate Reed is a 47 year old female, BMI 28.05 kg/m2 with a PMH significant for Migraine. Most recently followed up with Ramona Kiser CNP on 11/14/2022: She went to vestibular rehab and they were unable to reproduce her symptoms of dizziness during the visit. However, things have improved with initiating Gabapentin. Tolerating medication with little side effects, only noted side effect is slight daytime grogginess. Dizziness is always associated with menstrual cycle. Dizziness typically occurs two days prior to cycle starting. Dizziness is off and all day, but only occurring one day vs the whole month. Still having menstrual related migraines. However, headaches have improved since starting Gabapentin. No longer having a full blown migraines. (G43.829) Menstrual migraine without status migrainosus, not intractable (primary encounter diagnosis) (R42) Migrainous dizziness Kate Reed is a 47 year old female with history of vertigo with uncertain etiology (potential viral correlation with history of shingles) and menstrual migraines. Her neurological examination is limited due to virtual encounter. Since our last visit, she went to vestibular rehab and they were unable to reproduce her symptoms of dizziness during the visit. Symptoms of dizziness believed to be associated with migraines. Patient at the time was hesitant to start Gabapentin for headache prevention and dizziness. However, had reached out a few weeks ago expressing interest as her dizziness was not improved. She has since started Gabapentin 300mg at bedtime and has noticed a significant difference in her dizziness. Tolerating medication with little side effects, only noted side effect is slight daytime grogginess. Suggested to take a couple of hours before bedtime to improve daytime grogginess. She has correlated that the dizziness is always associated with menstrual cycle, typically occurs two days prior to cycle starting. Dizziness is off and all day, but only occurring one day vs the whole month. Still having menstrual related migraines but has noticed decreased intensity with the Gabapentin and naratriptan combination. Recommended continuing medication for symptom management and to follow up in 2-3 months with myself or Dr. Smith. Plan: Continue Gabapentin 300mg at bedtime for migraine prevention and dizziness Can continue rizatriptan and naratriptan for migraines (patient aware to not take at same time, naratriptan for menstrual migraines only) Follow up in 2-3 months Patient reports the meds are working well. Loves Amerge. However the 1 month she did not have it and noted dizziness and headache. Tooth sensitivity as well and as dental exam was normal and thus, likely migraine related. States gabapentin working. At this time, since on gabapentin has only had a very minimal episode of dizziness with menses. HAs well controlled. Has not needed maxalt at all over last few months. When dizziness slightly broke through took an antivert x1 but otherwise has been asx. Reviewed recent MRI brain and C spine with patient - both unremarkable (reports in Epic). REVIEW OF SYSTEMS GENERAL:No weight loss, malaise or fevers. HEENT:Negative for frequent or significant headaches, No changes in hearing or vision, no nose bleeds or other nasal problems RESPIRATORY: Negative for cough, wheezing or shortness of breath. CARDIOVASCULAR: Negative for chest pain, leg swelling or palpitations. GASTROINTESTINAL: Negative for abdominal discomfort, blood in stools or black stools or change in bowel habits GENITOURINARY: No history of dysuria, frequency or incontinence MUSCULOSKELETAL: Negative for joint pain or swelling, back pain or muscle pain. NEUROLOGIC:See HPI. LAB/IMAGING: Those performed since patient's last visit have been reviewed. WBC (k/uL) Date Value 01/22/2022 4.87 RBC (m/uL) Date Value 01/22/2022 4.17 Hemoglobin (g/dL) Date Value 01/22/2022 12.9 Hematocrit (%) Date Value 01/22/2022 39.3 MCV (fL) Date Value 01/22/2022 94.2 MCH (pg) Date Value 01/22/2022 30.9 MCHC (g/dL) Date Value 01/22/2022 32.8 RDW-CV (%) Date Value 01/22/2022 11.8 Platelet Count (k/uL) Date Value 01/22/2022 310 MPV (fL) Date Value 01/22/2022 9.9 Glucose (mg/dL) Date Value 02/05/2022 90 BUN (mg/dL) Date Value 02/05/2022 7 Creatinine (mg/dL) Date Value 02/05/2022 0.66 Sodium (mmol/L) Date Value 02/05/2022 137 Potassium (mmol/L) Date Value 02/05/2022 3.5 (L) Chloride (mmol/L) Date Value 02/05/2022 102 CO2 (mmol/L) Date Value 02/05/2022 21 (L) Protein, Total (g/dL) Date Value 01/22/2022 7.0 Albumin (g/dL) Date Value 01/22/2022 4.4 Calcium, Total (mg/dL) Date Value 02/05/2022 9.3 Alkaline Phosphatase (U/L) Date Value 01/22/2022 79 Bilirubin, Total (mg/dL) Date Value 01/22/2022 0.3 AST (U/L) Date Value 01/22/2022 32 ALT (U/L) Date Value 01/22/2022 25 Anti-SSA (AI) Date Value 11/09/2013 <0.2 Anti-SSB (AI) Date Value 11/09/2013 <0.2 MEDICATIONS: Naratriptan HCl (AMERGE) 1 mg tab Take 1 tablet twice daily as instructed x 4 days monthly (starting 1 day prior to cycle). gabapentin (NEURONTIN) 300 mg capsule Take 1 capsule by mouth daily at bedtime for 90 days. Norethindrone Acet-Ethinyl Est 1-20 mg-mcg per tablet Take 20 tablets by mouth once daily. topiramate (TOPAMAX) 25 mg tablet Take 1 tablet by mouth once daily. Take 2 tablets at bedtime x1 week and then increase to 3 tablets at bedtime and continue. (Patient taking differently: Take 25 mg by mouth once daily. Take 2 tablets at bedtime x1 week and then increase to 3 tablets at bedtime and continue. Patient taking 1 tablet in the morning) meclizine (ANTIVERT) 25 mg tab Take 1 tablet by mouth once daily as needed. valACYclovir (VALTREX) 500 mg tablet At earliest onset of symptoms take 2 gms , 2 times a day for 1 day citalopram (CELEXA) 40 mg tablet Take 1 tablet by mouth once daily. (Patient taking differently: Take 40 mg by mouth once daily. Taking 20 mg) rizatriptan (MAXALT) 5 mg tablet Take 1 tablet by mouth as needed. May repeat in 2 hours if needed peg 3350-Electrolytes (GOLYTELY) 236-22.74-6.74 -5.86 gram suspension Refer to printed prep instructions from your provider. (Patient not taking: Reported on 02/12/2022 ) HISTORIES PAST MEDICAL HISTORY Diagnosis Date Anxiety 11/24/2020 Biliary dyskinesia 10/30/2013 Chronic cholecystitis without calculus 12/03/2013 Endometriosis, site unspecified Endometriosis Irregular menstrual cycle Irregular periods IRREGULAR MENSTRUATION Mild dysplasia of cervix (FREDO I) Mixed incontinence FAMILY HISTORY Problem Relation Age of Onset other (Fibro-Myalgia) Mother other (Hypoglycemia) Mother Hypertension Maternal Grandmother Heart Paternal Grandfather Stroke Paternal Grandmother Cancer Paternal Aunt OVARIAN Coronary Artery Disease Paternal Uncle Anesthesia Problems No Family History SOCIAL HISTORY Social History Tobacco Use Smoking status: Never Smokeless tobacco: Never Substance Use Topics Alcohol use: Yes Comment: OCCASIONALLY, once per week Drug use: No PHYSICAL EXAMINATION BP 108/72 (BP Site: Left Arm, BP Position: Sitting) Pulse 90 Temp 36.8 C (98.2 F) Resp 16 Wt 78.8 kg (173 lb 12.8 oz) LMP 12/07/2022 (Exact Date) SpO2 98% BMI 28.05 kg/m GENERAL EXAM: General appearance: NAD, pleasant. HEENT: NC/AT, nasal congestion absent, no oral lesions, membranes moist. Lungs: CTA bilaterally. CV: RRR nl S1, S2, no murmurs. Extr: No cyanosis, clubbing or edema. Skin: Cool to touch. NEUROLOGICAL EXAM: General: Awake, alert, oriented x3 (person,place,time), speech fluent, no dysarthria; comprehension, naming, repetition intact. Fund of knowledge nml. CN: PERRL, fundi with no evidence of papilledema, EOMI and without nystagmus, VFF to confrontation, facial sensation and strength are normal and symmetric, hearing is intact to finger rub bilaterally, palate and tongue movements are intact and symmetric. SCM and trapezius strength normal. Motor: Normal tone, bulk and strength (5/5) bilaterally (throughout extremities x4). Coordination: FNF, JANE, HTS intact. No tremors. Sensation: Light touch intact throughout. No evidence of neglect. Gait: Stable with normal stride and arm swing. Assessment and Plan: ASSESSMENT/PLAN: 1. Menstrual migraine without status migrainosus, not intractable - ICD9: 346.40, ICD10: G43.829 (primary diagnosis) 2. Migrainous dizziness - ICD9: 780.4, ICD10: R42 Patient doing well on Amerge as Rx'd above during menses as well as gabapentin 300mg QHS. As patient now down to Topamax 25mg QAM, will try to stop given effectiveness of these other medications. Rarely needing Maxalt and thus not needing refills (knows never to take Maxalt and Amerge on same day). Discussed possibly stopping gabapentin, but in setting of stopping Topamax, feel best that we continue gabapentin for now. SE and ADRs d/w pt. Refills provided. Follow up 6 months. Frandy Smith MD I spent a total of 25 minutes on the date of the service which included preparing to see the patient, [id number] patient care, completing clinical documentation, obtaining and/or reviewing separately obtained history, performing a medically appropriate examination, counseling and educating the patient/family/caregiver, and ordering medications, tests, or procedures. PDMP website checked and validated. All prescriptions have been APPROPRIATELY filled. No suspicious activity was identified. 12/07/2022 by Frandy Smith MD documented in this encounter [facility] 11-14-2022 History of Present illness Narrative Images from the original note were not included. [facility] for General Neurology Follow Up / Established Virtual Visit I received consent from the patient to perform the visit as a virtual encounter. Individuals who were included in, or assisted with the encounter were: Kate Reed Jovi Kiser APRN.INDUCTION COORDINATION ENGINEER Chief Complaint/Issues: Kate Reed is a 47 year old handed female seen via virtual visit for: Follow up Dizziness Brief HPI /Most Recent Department Assessment and Plan Last Appointment on 10/01/2022: (R42) Vertigo (primary encounter diagnosis) (G43.829) Menstrual migraine without status migrainosus, not intractable Kate Reed is a 47 year old female with history of vertigo with uncertain etiology (potential viral correlation with history of shingles). Her neurological examination is limited due to virtual encounter. Reviewed recent MRI Brain and C-spine which was unrevealing. Has had extensive work-up in 2019 with previous vertigo attack, records are not available for review. Recently taking to the ER for vertigo attack that included vomiting, at that time prescribed meclizine which has helped on the bad days. Considerations include BPPV or migraine with aura, as intracranial etiology as been ruled out. Patient reports naratriptan has been exceptionally beneficial and eliminated menstrual related migraines. However, last month she did not have a prescription, has since been updated. Can continue for menstrual migraines. Additionally, prescribed rizatriptan for migraines that are not menstrual related and Topamax 25mg daily for prevention. Reiterated that she can not take naratriptan and rizatriptan within the same day. Taking Topamax 25 mg in the morning as it was worsening her sleep. Discussed potential of starting Gabapentin and potential side effects, patient would like to research medication and potentially consider. In the meantime, consult to vestibular rehab placed to start as soon as possible. Patient agrees with plan moving forward and will follow up in 4 weeks or sooner to reassess symptoms. Plan: Consult to vestibular rehab Meclizine 25mg as needed, limit use Updated Topamax order to reflect current dosage, taking 25mg daily Can continue rizatriptan and naratriptan for migraines (patient aware to not take at same time, naratriptan for menstrual migraines only) Consider Gabapentin for vertigo treatment in the future Follow up 4 in weeks Today: She went to vestibular rehab and they were unable to reproduce her symptoms of dizziness during the visit. However, things have improved with initiating Gabapentin. Tolerating medication with little side effects, only noted side effect is slight daytime grogginess. Dizziness is always associated with menstrual cycle. Dizziness typically occurs two days prior to cycle starting. Dizziness is off and all day, but only occurring one day vs the whole month. Still having menstrual related migraines. However, headaches have improved since starting Gabapentin. No longer having a full blown migraines. PMH PAST MEDICAL HISTORY Diagnosis Date Anxiety 11/24/2020 Biliary dyskinesia 10/30/2013 Chronic cholecystitis without calculus 12/03/2013 Endometriosis, site unspecified Endometriosis Irregular menstrual cycle Irregular periods IRREGULAR MENSTRUATION Mild dysplasia of cervix (FREDO I) Mixed incontinence PAST SURGICAL HISTORY Procedure Laterality Date DELIVERY ONLY , low transverse, x 1 COLONOSCOPY FLX DX W/COLLJ SPEC WHEN PFRMD 09/16/2013 Colonoscopy COLPO OF CERVIX INC UPPER VAG 11/2005 ESOPHAGOGASTRODUODENOSCOPY TRANSORAL DIAGNOSTIC 09/16/2013 EGD LAPS ABD PRTM&OMENTUM DX W/WO SPEC BR/WA SPX Laparoscopy LASER ABLATION OF ENDOMETRIOSIS LAPS SURG CHOLECYSTECTOMY W/CHOLANGIOGRAPHY 11/24/2013 PAST SURGICAL HISTORY OF 2000 hemorrhoidectomy, anal fissure S CPLO RAMIRO BLADDER SLING 02/2022 ALLERGIES Allergen Reactions Erythromycin GI Upset Honey Swelling Social History Tobacco Use Smoking status: Never Smokeless tobacco: Never Substance Use Topics Alcohol use: Yes Comment: OCCASIONALLY, once per week Drug use: No FAMILY HISTORY Problem Relation Age of Onset other (Fibro-Myalgia) Mother other (Hypoglycemia) Mother Hypertension Maternal Grandmother Heart Paternal Grandfather Stroke Paternal Grandmother Cancer Paternal Aunt OVARIAN Coronary Artery Disease Paternal Uncle Anesthesia Problems No Family History General Examination: Exam is observational at best. Well-groomed. No acute distress. The patient was alert and oriented to person, place, and time with normal language, attention and concentration, recent and remote memory, praxis, and intellectual function. Affect was normal. The patient did not appear depressed. General: well appearing, in no acute distress, alert Pain Behaviors: no pain behaviors observed Neurological: Mental Status: Alert and oriented to person, place and time. Affect is normal and appropriate. Speech is spontaneous and fluent without dysarthria. Short and fdc memory, cognition and general fund of knowledge are good. Attention span and concentration are excellent. HEENT: Head is normocephalic and features were symmetric. Cranial Nerves: III, IV, -EOMI: full. VII-face is symmetric without evidence of weakness. VIII-hearing intact. IMPRESSION/PLAN: (G43.829) Menstrual migraine without status migrainosus, not intractable (primary encounter diagnosis) (R42) Migrainous dizziness Kate Reed is a 47 year old female with history of vertigo with uncertain etiology (potential viral correlation with history of shingles) and menstrual migraines. Her neurological examination is limited due to virtual encounter. Since our last visit, she went to vestibular rehab and they were unable to reproduce her symptoms of dizziness during the visit. Symptoms of dizziness believed to be associated with migraines. Patient at the time was hesitant to start Gabapentin for headache prevention and dizziness. However, had reached out a few weeks ago expressing interest as her dizziness was not improved. She has since started Gabapentin 300mg at bedtime and has noticed a significant difference in her dizziness. Tolerating medication with little side effects, only noted side effect is slight daytime grogginess. Suggested to take a couple of hours before bedtime to improve daytime grogginess. She has correlated that the dizziness is always associated with menstrual cycle, typically occurs two days prior to cycle starting. Dizziness is off and all day, but only occurring one day vs the whole month. Still having menstrual related migraines but has noticed decreased intensity with the Gabapentin and naratriptan combination. Recommended continuing medication for symptom management and to follow up in 2-3 months with myself or Dr. Smith. Plan: Continue Gabapentin 300mg at bedtime for migraine prevention and dizziness Can continue rizatriptan and naratriptan for migraines (patient aware to not take at same time, naratriptan for menstrual migraines only) Follow up in 2-3 months I spent a total of 15 minutes on the date of the service which included preparing to see the patient, shvd-to-caqa patient care, completing clinical documentation, obtaining and/or reviewing separately obtained history, and counseling and educating the patient/family/caregiver. Jovi Kiser APRN.CNP [facility] [id number] [place] [address] Appointment: [phone] In regards to blood work, testing, and radiology reports these are released automatically to the patients. We do not comment on most testing on mychart in a message or commentary unless there is a concern. You will not receive a message from me of the result unless there is a specific concern. Make sure to check your my chart email or mamadou. My impression and recommendations were discussed with the patient and they were provided with a detailed after summary visit highlighting such. Patient verbalizes understanding and I have addressed concerns and questions at this visit. Reassurance provided. Medication side effects discussed as applicable. . 1. This office note has been dictated and may contain minor typographic errors that escaped review. 2. The nursing staff and medical assistants are a major part of YOUR TREATMENT TEAM and will be handling your phone calls and inquiries, if any. Unless explicitly told otherwise at the time of your office visit, your study results and ensuing treatment plans will be discussed during your follow-up appointment. If you do not have a follow-up appointment and wish to discuss any issues directly with me, please feel free to obtain one. 3. It is my practice to not fill disability or any other insurance-related forms/documention. All of the office notes, study results, and other pertinent documentation generated as part of your evaluation will be available to you and to your Primary Care Physician (PCP). Use of this material to complete such forms will be at the discretion of your PCP/referring physician \\ documented in this encounter [facility] 10-16-2022 History of Present illness Narrative Episode Visit Count: 1 Therapist That Will Accept/Oversee The Plan Of Care: Galilea Marquez Start of Care Date: 10/16/22 Onset Date: 09/19/22 (prior episode 3 years ago) Plan of Care Certification Date: 10/16/22 Next Certification Due Date: 10/16/22 Patient Identified by Name and Date of : Yes REHABILITATION AND SPORTS THERAPY PHYSICAL THERAPY EVALUATION PLAN OF CARE: Assessment: Kate Acuna Katieleora presents with 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 She presents with impairments in ADL's and patient reported outcome measures. . Prognosis for therapy is Good due to: current objective clinical presentation;good overall health status;acuteness of condition;good support system/ coping skills . She will benefit from skilled therapy services to meet the goals established for this plan of care as noted below. Goals for Episode of Care: created on 10/16/22 through 10/16/22 Patient Goals: resolution of intermittent dizziness episodes and dc medication Planned Interventions, Frequency, and Duration: Current Frequency: Discontinue Therapy Services Duration: 1 visit Total Number of Visits Planned: 1 Planned Treatment Interventions: Self-[facility] management ([id number]);Neuromuscular re-education ([id number]) PLAN FOR NEXT VISIT: DC - negative vestibular and cervical spine testing for producing concordant symptoms of vertigo. Patient demonstrates good understanding of plan of care and treatment. The above goals and plan of care were discussed and agreed upon by patient/family. SUBJECTIVE: Kate Reed is a 47 year old female seen today for for sudden onset of dizziness and vomiting while at work 09/14/22 that lasted for hours and reduced when given medication at the ER. Since this episode, she conintues to have intermittent dizziness that comes on gradually and resolves when resting or taking meclizine 3 years ago she had a very similar onset of similar symptoms and did vestibular rehabilitation at [facility]. She has a history of shingles. She has a chronic history of migraines that seem to be consistently correlated with her mentrual cycle. She did not take meclizine prior to this visit. 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 Infection Clinical Reasoning: No identified risk factors. Cervical Arterial Dysfunction: Dizziness Cervical Arterial Dysfunction Clinical Reasoning: Proceed with caution Cervical Myelopathy: Age > 45 yo Cervical Myelopathy Diagnostic Rule: Proceed with caution Red Flags - Cervical Cancer Clinical Reasoning: No identified risk factors. Infection Clinical Reasoning: No identified risk factors. Cervical Arterial Dysfunction: Dizziness Cervical Arterial Dysfunction Clinical Reasoning: Proceed with caution Cervical Myelopathy: Age > 45 yo Cervical Myelopathy Diagnostic Rule: Proceed with caution Concussion History of Concussion: No Vestibular Symptoms present for: weeks Symptom onset: comments Symptom onset comments: initial episode sudden, but now gradual following this event Dizziness: Yes Description: dizziness;spinning (room);vertigo Rating of current symptoms: 0/10 Frequency: Daily Duration: hours Symptoms worsened by: watching moving objects;supine to sit;busy environments;computer work (stress, halogen lighting, noise) Symptoms improved by: closing eyes;medication Imbalance: Yes Imbalance triggered by: (stairs) Imbalance Comments: using hand rail Nausea: none currently Motion Sickness: Current;As a child Headache: No Neck Symptoms: No Jaw Symptoms: No Ear Symptoms: Yes Description: clogged (popping) Location: both ears, but worse in right ear Frequency: Daily Hearing Changes: No recent changes Tinnitus: No recent changes Sleep Affected by Symptoms: Not affected by dizziness;not affected by pain History of Syncope: No History of Migraine: Yes Denies: tremors;focal weakness;neuropathy;paresthesia;visual changes;neurological complaints Reports: dizziness;headaches Pain: Post Treatment Pain Post Treatment Symptoms: denies dizziness, headache, and nausea PROMIS Scales Higher is Better 01/24/2022 05/07/2022 10/14/2022 Phys Func - Score - - 44 (mild dysfunction) Phys Func - Percentile - - 27 % GH Physical - Score 50.8 (Very Good) 47.7 (Good) 50.8 (Very Good) GH Physical - Percentile 53 % 41 % 53 % GH Mental - Score 43.5 (Good) 48.3 (Very Good) 45.8 (Good) GH Mental - Percentile 26 % 43 % 34 % Self-Eff Symptom - Score - - 45 (Average) Self-Eff Symptom - Percentile - - 31 % T-scores: mean of general population = 50. 5 points is clinically meaningfully difference Percentiles provide an indication of how the patient's score ranks in relation to the general population. Higher percentile rankings indicate better function/quality of life. 50th percentile is the average of the general population and indicates half of respondents had a worse score. T-scores: mean of general population = 50. 5 points is clinically meaningfully difference Percentiles provide an indication of how the patient's score ranks in relation to the general population. Higher percentile rankings indicate better function/quality of life. 50th percentile is the average of the general population and indicates half of respondents had a worse score. OBJECTIVE MEASURES WITH LEVEL OF FUNCTION: Vision Vision Deficits: Comments (denies changes in vision) Posture / Alignment Posture: Good Oculomotor Testing Fixation Present Ocular ROM: WNL Spontaneous Nystagmus: No nystagmus Gaze Evoked Nystagmus: Not Present Smooth pursuit: Horizontal, Vertical and Diagonal all WNL Saccadic eye movements: Horizontal, vertical and oblique all WNL. Head Thrusts: Negative VOR cancelation: Negative Convergence (Distance): 3 cm X1 Viewing - Horizontal: WNL withotu symptoms x1 min X1 Viewing - Vertical: WNL without symptoms x1 min Cross Cover: Negative Oculomotor Testing Fixation Removed Gaze Evoked Nystagmus: Not present Head Shake: Negative Tragal Pressure: negative Positional Testing Right [place]: No nystagmus;Asymptomatic Left [place]: Asymptomatic;No nystagmus Right Ear Down: Asymptomatic;No nystagmus Left Ear Down: Asymptomatic;No nystagmus Positional Test Comments: denies symptoms, transitions through positions quickly without assistance and without symptoms Sensation - Cervical Spine Cervical Spine Sensation: Grossly Intact Cervical Spine ROM Cervical ROM : Limitation AROM Cervical Protrusion AROM: Normal Cervical Retraction AROM: Normal Cervical Flexion AROM: Normal Cervical Extension AROM: Normal Cervical Side-Bend Right AROM: Normal Cervical Side-Bend Left AROM: Normal Cervical Rotation Right AROM: Normal Cervical Rotation Left AROM: Normal Functional Strength Functional Strength: Supine<>sit;Sit<>stand;Rolling Rolling: without symptoms Supine<>sit: without symptoms Sit/Stand: without symptoms Special Tests - Cervical Cervical Special Tests: Vertebral Artery Test Vertebral Artery Test: Negative Mobility Rolling: Independent Supine To Sit: Independent Sit to Supine: Independent Sit To Stand: Independent Stand To Sit: Independent Gait Gait: Independent Gait Distance (feet): 100 Gait Device: None Gait Observation: unremarkable Education: Education Learning Preferences: Demonstration;Explanation;Performance; Printed Materials Barriers: None Learning/educational needs: Plan of Care;Safety;Lifestyle changes Education Provided: Yes, see treatment interventions for education provided Education Provided To: Patient Education Mode/Type: Demonstration;Explanation/Discussion;P erformance Response to Education/Teach Back: States/Identifies;Return Demonstration TREATMENT: PT Treatment Interventions: Neuromuscular Re-Education;Self-Skilled Nursing Management Evaluation Neuromuscular Re-Education: 1: VORx1 seated horrizontal and vertical 1 min each -- denies symptoms, 2 Hz 2: romberg x 30 sec eyes open, firm surface (denies dizziness, no LOB) 3: romberg x30 sec eyes closed 30 sec (denies dizziness, no LOB) 4: romber x30 sec with horrizontal and vertical head movement x30 sec each, firm surface, eyes closed (denies dizziness and without headache or LOB) Skilled Intervention: Skilled judgment used to assess appropriate program for balance and coordination activity. Ensured patient safety with use of SBA Reviewed and educated patient on additions/changes for home program as noted above with an (*). Patient education as noted. Self-Skilled Nursing Management: 1: *discussed vestibular testing negative and without reproduction of dizziness symptoms. Negative cerivcal spine screen. Dizziness symptoms may be related to migraine or without vestibular origin. 2: *discussed making note of possible triggers when migraines onset such as activities, foods, stress factors, etc. and then monitoring for a pattern of these specific triggers to avoid to better prevent symptoms 3: *encouraged pt. to discuss with physician how to gradually reduce meclizine medication due to pt. desire to dc this Skilled Intervention: Skilled judgment in the selection of proper modification for activity of daily living/home management based on clinical presentation, deficits, and needs. Physical assistance was provided during education for modifications and patient safety. Educated the patient regarding recommendations and provided written instruction to facilitate compliance. Provided written instruction for activities of daily living techniques to facilitate proper performance and compliance. Reviewed patient specific diagnosis in relation to activities of daily living/home management. Activity progression based on professional judgement. Reviewed and educated patient on additions/changes for home program as noted above with an (*). Billing * Evaluation Low Complexity: 1 Unit Neuromuscular Re-Education Treatment Minutes: 10 Self-Care/Home Management Treatment Minutes: 15 Total Treatment Time Minutes (timed/untimed): 45 Galilea Marquez PT documented in this encounter [facility] 10-01-2022 Instructions Jovi Kiser APRN.[facility] - 10/01/2022 12:06 PM EST Plan: Consult to vestibular rehab Meclizine as needed, limit use Updated Topamax order to reflect current dosage, taking 25mg daily Can continue rizatriptan and naratriptan for migraines (patient aware to not take at same time, naratriptan for menstrual migraines only) Consider Gabapentin for vertigo treatment in the future Follow up 4 in weeks documented in this encounter [facility] 10-01-2022 History of Present illness Narrative Images from the original note were not included. [facility] for General Neurology Follow Up / Established Virtual Visit I received consent from the patient to perform the visit as a virtual encounter. Individuals who were included in, or assisted with the encounter were: Kate Reed Jovi Kiser APRN.[employer]UCTION COORDINATION ENGINEER Chief Complaint/Issues: Kate Reed is a 47 year old female seen via virtual visit for: Follow up Dizziness Last Appointment on 07/30/[address] Smith: 1. Vertigo - ICD9: 780.4, ICD10: R42 (primary diagnosis) 2. Migraine without status migrainosus, not intractable, unspecified migraine type - ICD9: 346.90, ICD10: G43.909 3. Menstrual migraine without status migrainosus, not intractable - ICD9: 346.40, ICD10: G43.829 Patient with history of vertigo as above that is of uncertain etiology. Extensive workup reported by patient to have taken place at OSH, but those records are not available for review. Ddx based on history alone would include BPPV with recurrence, migraine with vertigo or still possible intracranial cause not determine on prior imaging studies (I.e. small acoustic neuroma that was not yet declared on MRI, demyelinating process). Ddx d/w patient and do feel appropriate to repeat head imaging at this time to confirm no intracranial cause. In addition, given neck pain with radiation feel appropriate to evaluate for C spine stenosis resulting in cervicogenic vertigo. Thus will order MRI brain wwo contrast and MRI C spine wo contrast. Note, no other posterior fossa symptoms to suggest VBI. Will obtain outside records during the interim as well. As for treatment, given headaches persist, and both headaches and vertigo occur with menses, will focus on treatment of migraines today. As she is having over 4 headaches days per month, I do feel appropriate to increase dose of preventative (Topamax) to 50mg for the next week and then 75mg the following week. SE and ADRs d/w pt. She will continue Maxalt prn for headaches not associated with menses. However, for headache prevention with menses, will start Amerge 1mg BID 1 day prior to menses onset and to continue for 3 days following. SE and ADRs d/w pt. She understands that she cannot take Amerge and Maxalt on the same day or in combination. She also has been instructed on 5ht syndrome given that she is on celexa (no prior symptoms while on Maxalt). Pt agrees with plan. She will follow up in ~3 months or sooner prn. If workup unremarkable and symptoms improve, then likely vertigo is due to migraine. Today: Still having issues of lingering dizziness and vertigo attacks. Recently, went to ED due to severe vertigo with vomiting. Has not done vestibular therapy. Vertigo attack was 3 days after menstrual cycle ended in which she did not have her naratriptan that cycle. Has been utilizing meclizine as needed. In 2019, she had completed vestibular therapy through an outside facility. Unsure what eventually helped. Recent MRI Brain and C-spine unrevealing of vertigo etiology. Mentions history of shingles. Had tried naratriptan for her menstrual migraines. Which has worked tremendously for her migraine prevention during her cycle. Still taking Topamax 25mg, helpful for migraines. However, not helping symptoms of vertigo. PMH PAST MEDICAL HISTORY Diagnosis Date Anxiety 11/24/2020 Biliary dyskinesia 10/30/2013 Chronic cholecystitis without calculus 12/03/2013 Endometriosis, site unspecified Endometriosis Irregular menstrual cycle Irregular periods IRREGULAR MENSTRUATION Mild dysplasia of cervix (FREDO I) Mixed incontinence PAST SURGICAL HISTORY Procedure Laterality Date DELIVERY ONLY , low transverse, x 1 COLONOSCOPY FLX DX W/COLLJ SPEC WHEN PFRMD 09/16/2013 Colonoscopy COLPO OF CERVIX INC UPPER VAG 11/2005 ESOPHAGOGASTRODUODENOSCOPY TRANSORAL DIAGNOSTIC 09/16/2013 EGD LAPS ABD PRTM&OMENTUM DX W/WO SPEC BR/WA SPX Laparoscopy LASER ABLATION OF ENDOMETRIOSIS LAPS SURG CHOLECYSTECTOMY W/CHOLANGIOGRAPHY 11/24/2013 PAST SURGICAL HISTORY OF 2000 hemorrhoidectomy, anal fissure S CPLO RAMIRO BLADDER SLING 02/2022 ALLERGIES Allergen Reactions Erythromycin GI Upset Honey Swelling Social History Tobacco Use Smoking status: Never Smokeless tobacco: Never Substance Use Topics Alcohol use: Yes Comment: OCCASIONALLY, once per week Drug use: No FAMILY HISTORY Problem Relation Age of Onset other (Fibro-Myalgia) Mother other (Hypoglycemia) Mother Hypertension Maternal Grandmother Heart Paternal Grandfather Stroke Paternal Grandmother Cancer Paternal Aunt OVARIAN Coronary Artery Disease Paternal Uncle Anesthesia Problems No Family History General Examination: Exam is observational at best. Well-groomed. No acute distress. The patient was alert and oriented to person, place, and time with normal language, attention and concentration, recent and remote memory, praxis, and intellectual function. Affect was normal. The patient did not appear depressed. General: well appearing, in no acute distress, alert Pain Behaviors: no pain behaviors observed Neurological: Mental Status: Alert and oriented to person, place and time. Affect is normal and appropriate. Speech is spontaneous and fluent without dysarthria and normal in rate, volume and articulation. Short and fdc memory, cognition and general fund of knowledge are good. Attention span and concentration are excellent. Cranial Nerves: III, IV, -EOMI: full. VII-face is symmetric without evidence of weakness. VIII-hearing intact. XII-tongue protrudes midline with normal movements. REVIEW OF STUDIES: MRI Brain and C Spine 09/28/22 EXAMINATION: MRI BRAIN WO/W IVCON, MRI CERVICAL SPINE WO IVCON HISTORY: Vertigo Migraine without status migrainosus, not intractable, unspecified migraine type Menstrual migraine without status migrainosus, not intractable Cervicalgia TECHNIQUE: Demyelinating brain MRI protocol without and with contrast. Routine cervical spine without contrast. MQ: [id number] Contrast: 15 mL Dotarem IV COMPARISON: None. RESULT: Acute Change: There is no evidence of restricted diffusion to suggest an acute infarct. Hemorrhage: No evidence of prior parenchymal hemorrhage on the available images. Mass Lesion/ Mass Effect: No evidence of an intracranial mass or extra-axial fluid collection. No abnormal parenchymal or leptomeningeal enhancement is noted following contrast administration. No significant mass effect. Chronic Change: The white matter is within normal limits of signal intensity for age. Parenchyma: No significant volume loss for age. The brain parenchyma is otherwise within normal limits of signal intensity and morphology. Ventricles: Normal caliber and morphology. Skull Base: Hypothalamic and pituitary region are grossly normal. Craniocervical junction is normal. No significant marrow replacement process. Vasculature: Major intracranial arterial structures, and dural venous sinuses show typical flow void, suggesting patency by spin echo criteria. Other: The visualized paranasal sinuses and mastoid air cells are clear. The orbits and extracranial soft tissues are unremarkable. Cervical spine: Counting reference: Craniocervical junction. Cervical vertebral bodies maintain normal height and alignment. No destructive osseous process or marrow replacing lesion is detected. Cervical spinal cord signal intensity is normal on all sequences. No cord volume loss. No significant degenerative changes. Canal and foramina are patent at all levels. Soft tissues outside of the cervical spine are unremarkable. IMPRESSION/PLAN: (R42) Vertigo (primary encounter diagnosis) (G43.829) Menstrual migraine without status migrainosus, not intractable Kate Reed is a 47 year old female with history of vertigo with uncertain etiology (potential viral correlation with history of shingles). Her neurological examination is limited due to virtual encounter. Reviewed recent MRI Brain and C-spine which was unrevealing. Has had extensive work-up in 2019 with previous vertigo attack, records are not available for review. Recently taking to the ER for vertigo attack that included vomiting, at that time prescribed meclizine which has helped on the bad days. Considerations include BPPV or migraine with aura, as intracranial etiology as been ruled out. Patient reports naratriptan has been exceptionally beneficial and eliminated menstrual related migraines. However, last month she did not have a prescription, has since been updated. Can continue for menstrual migraines. Additionally, prescribed rizatriptan for migraines that are not menstrual related and Topamax 25mg daily for prevention. Reiterated that she can not take naratriptan and rizatriptan within the same day. Taking Topamax 25 mg in the morning as it was worsening her sleep. Discussed potential of starting Gabapentin and potential side effects, patient would like to research medication and potentially consider. In the meantime, consult to vestibular rehab placed to start as soon as possible. Patient agrees with plan moving forward and will follow up in 4 weeks or sooner to reassess symptoms. Plan: Consult to vestibular rehab Meclizine 25mg as needed, limit use Updated Topamax order to reflect current dosage, taking 25mg daily Can continue rizatriptan and naratriptan for migraines (patient aware to not take at same time, naratriptan for menstrual migraines only) Consider Gabapentin for vertigo treatment in the future Follow up 4 in weeks I spent a total of 30 minutes on the date of the service which included preparing to see the patient, [id number] patient care, completing clinical documentation, obtaining and/or reviewing separately obtained history, counseling and educating the patient/family/caregiver, communicating with other HCPs (not separately reported), communicating results to the patient/family/caregiver, and care coordination (not separately reported). Jovi Kiser APRN.[facility] General Neurology [address] [place] [address] Appointment: [phone] In regards to blood work, testing, and radiology reports these are released automatically to the patients. We do not comment on most testing on [employer] in a message or commentary unless there is a concern. You will not receive a message from me of the result unless there is a specific concern. Make sure to check your my chart email or mamadou. My impression and recommendations were discussed with the patient and they were provided with a detailed after summary visit highlighting such. Patient verbalizes understanding and I have addressed concerns and questions at this visit. Reassurance provided. Medication side effects discussed as applicable. . 1. This office note has been dictated and may contain minor typographic errors that escaped review. 2. The nursing staff and medical assistants are a major part of YOUR TREATMENT TEAM and will be handling your phone calls and inquiries, if any. Unless explicitly told otherwise at the time of your office visit, your study results and ensuing treatment plans will be discussed during your follow-up appointment. If you do not have a follow-up appointment and wish to discuss any issues directly with me, please feel free to obtain one. 3. It is my practice to not fill disability or any other insurance-related forms/documention. All of the office notes, study results, and other pertinent documentation generated as part of your evaluation will be available to you and to your Primary Care Physician (PCP). Use of this material to complete such forms will be at the discretion of your PCP/referring physician documented in this encounter [facility] 09-28-2022 History of Present illness Narrative Radiology Service Progress Note DATE OF SERVICE: September 28, 2022 TIME: 10:15 AM PATIENT IDENTITY VERIFICATION COMPLETED USING TWO (2) STANDARD IDENTIFIERS: Name and Date of confirmed by patient verbally. FALL SCREENING: Has the patient had 2 falls in the last year or 1 fall with injury or currently using an Ambulatory Assistive Device (Walker, Cane, Wheelchair, Crutches, etc.)? No PATIENT GENDER DATA: Female. status: : No status: NO. PATIENT RELEVANT IMPLANT DATA REVIEWED: Yes ALLERGIES: Reviewed and unchanged CONTRAST ALLERGY: NO. EXAM: MRI - CONTRAST TYPE: GROUP II PERIPHERAL IV DATA: Ambulatory: A peripheral IV was started in the Right antecubital site with a Angio cath: 22 gauge. RADIOLOGY DEPARTMENT: MR; Exam(s) Completed: Head: Routine Brain Spine: Cervical spine SIGNATURE: RT Izabella(Jessa) PATIENT NAME: Kate Reed DATE: September 28, 2022 TIME: 10:15 AM documented in this encounter [facility] 09-21-2022 Miscellaneous Notes See telephone encounter dated 09/20/2022. Sirena Tompkins LPN Patient originally had Imaging scheduled for 10/2022, nursing encouraged her to reschedule for sooner date. Now needing sooner follow up date scheduled. Nursing placed patient's name on cancellation list. Please advise otherwise or note and close encounter. Sirena Tompkins LPN documented in this encounter [facility] 09-21-2022 Miscellaneous Notes Patient to have MRI imaging completed on 09/28/22 at 10am. Will have PSS assist in scheduling patient for follow up with [facility] or [facility] as soon as possible after imaging completed , to review results. Sirena Tompkins LPN Please contact radiology to see if they can move up imaging studies sooner given limited workup in ER. At least if they can move up MRI brain to evaluate for stroke. We can refer to PT for vestibular therapy. However if not improving at this time should go to ER. Thank you, Frandy Smith MD Spoke with patient, states at this time is feeling ok. When she does turn her head quickly, does feel dizzy. Patient had a Cscope last Saturday, otherwise no changes in her usual activities. Yesterday had 2 major incidents and a small episode of vertigo. The major incidents are room spinning and vomiting and small is room spinning and no vomiting. Placed on zofran and antivert and effective for patient symptoms. Patient scheduled to have imaging completed at on 10/16/2022. Will forward ER report to provider to review. Sirena Tompkins LPN [facility] records to fax ER visit charting to [facility] office for provider to review. Sirena Tompkins LPN Did pt get imaging studies ordered at last visit? If symptoms not resolving recommend pt return to the ER. 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 They treated her with IV zofran and Ativan and oral meclazine. They did send home with her a script for zofran and meclazine. She mentioned prior to going to bed she had another vertigo episode and had to take a dose of meclazine but had no vomiting during this episode. She is currently doing ok but has not been up and about as of yet this am. The ER doctor recommended that she follow up with Dr. Sarah acuna. Patient is home today. No available appointments found in schedule for today. Please advise. documented in this encounter [facility] 09-10-2022 Miscellaneous Notes Active script sent 07/30/22 with 2 refills. documented in this encounter [facility] 08-03-2022 Instructions Gino Man APRN.[facility] - 08/03/2022 4:58 PM EDT [facility] PATIENT INFO POISON SHERON INTRODUCTION When the skin comes in direct contact with an irritating or allergy-causing substance, contact dermatitis can develop. Exposure to poison sheron, poison oak, and poison sumac cause more cases of allergic contact dermatitis than all other plant families combined. People of all ethnicities and skin types are at risk for developing poison sheron dermatitis. The severity of the reaction tends to decrease with age, especially in people who have had mild reactions in the past. People in occupations such as firefighting, forestry, and farming are at a higher risk of poison sheron dermatitis because of repeated exposure to toxic plants. POISON SHERON CAUSES Poison sheron, poison oak, and poison sumac plants all contain a compound called urushiol, which is a light, colorless oil that is found on the fruit, leaves, stem, root, and sap of the plant. When urushiol is exposed to air, it turns brown and the plant leaves develop small black spots. There are several ways that you can be exposed to urushiol: By touching the sap or rubbing against the leaves of the toxic plant By touching something that has urushiol on it, such as animal fur or garden tools By breathing in smoke when toxic plants are burned Ginkgo fruit and the skin of mangoes also contain urushiol and can produce symptoms similar to poison sheron dermatitis. IDENTIFYING POISON SHERON Leaves of three, let them be is a phrase often used to identify plants that cause poison sheron dermatitis. Generally, poison sheron and poison oak have three leaves with flowering branches on a single stem. Poison sumac has five, seven, or more leaves that angle upward toward the top of the stem. Some types of poison sheron produce a green or off-white fruit in yanet, and in some cases, black dots form on the plants' leaves. It is not always possible to identify the plant by the leaves alone since the appearance can vary depending upon the season, growth cycle, region, and climate. Poison sheron, oak, and sumac plants grow in many areas across the [place] and throughout the world. East of the [facility], poison sheron commonly grows as a climbing vine. In the [place] area and west, poison sheron tends to grow low to the ground as a shrub. Poison oak most often grows west of the [facility], and poison sumac inhabits boggy areas in the southeastern part of the [place]. The plants are not usually found in areas at high elevations or in desert climates. POISON SHERON SIGNS AND SYMPTOMS After contact with urushiol, approximately 50 percent of people develop signs and symptoms of poison sheron dermatitis. The symptoms and severity differ from person to person. The most common signs and symptoms of poison sheron dermatitis are: Intense itching Skin swelling Skin redness These symptoms usually develop within four hours to four days after exposure to the urushiol. After the initial symptoms, you will develop fluid-filled blisters in a line or streak-like pattern. The symptoms are worst within 1 to 14 days after touching the plant, but can develop up to 21 days later if you have never been exposed to urushiol before. The blisters can occur at different times in different people; blisters can develop on the arms several days after blisters on the hands developed. This does not mean that the reaction is spreading from one area of the body to the other. The fluid that leaks from blisters does not cause symptoms. Poison sheron dermatitis is not contagious and cannot be passed from person to person. However, urushiol can be carried under fingernails and on clothes; if another person comes in contact with the urushiol, they can develop poison sheron dermatitis. POISON SHERON DIAGNOSIS Poison sheron is usually diagnosed based upon how your skin looks. Further testing is not usually necessary. POISON SHERON TREATMENT Poison sheron dermatitis usually resolves within one to three weeks without treatment. Treatments that may help relieve the itching, soreness, and discomfort caused by poison sheron dermatitis include: Skin treatments -- For some people, adding oatmeal to a bath, applying cool wet compresses, and applying calamine lotion may help to relieve itching. Once the blisters begin weeping fluid, astringents containing aluminum acetate (Jeff's solution) and [place] may help to relieve the rash. Antihistamines -- Antihistamines may help to relieve itching caused by poison sheron dermatitis. Some antihistamines make you sleepy while others do not. Antihistamines that make you sleepy (eg, diphenhydramine [Benadryl ]) may be helpful if you have trouble sleeping due to itching. Other formulas (eg, loratadine [Claritin ], cetirizine [Zyrtec ]) may be preferable for daytime. Steroid creams -- Steroid creams may be helpful if they are used during the first few days after symptoms develop. Low potency steroid creams, such as 1 percent hydrocortisone (available in the [place] without prescription) are not usually helpful. A stronger prescription formula may be helpful. Steroids -- If you develop severe symptoms or the rash covers a large area (especially on the face or genitals), you may need steroid pills or injections (eg, prednisone) to help relieve itching and swelling. Pills are usually given for 14 to 21 days, with the dosage slowly decreased over time. Antibiotics -- Skin infections are a potential complication of poison sheron, especially if you scratch your skin. If you develop a skin infection because of poison sheron dermatitis, you may need antibiotics to treat the infection. Other treatments -- An herbal therapy called jewelweed extract has been used to treat poison sheron dermatitis, although it has not been proven effective. You should not use antihistamine creams or lotions, anesthetic creams containing benzocaine, or antibiotic creams containing neomycin or bacitracin to the skin. These creams or ointments could make the rash worse. POISON SHERON PREVENTION The best way to prevent poison sheron dermatitis is to identify and avoid the plants that cause it. These plants can irritate the skin year round, even during the winter months, and can still cause a reaction years after the plant dies. Wear protective clothing, including long sleeves and pants when working in areas where toxic plants may be found. Keep in mind that the resin and oils from the toxic plants can be carried on clothing, pets, and under fingernails. Wear heavy-duty vinyl gloves when doing yard work or gardening. The oils from toxic plants can seep through latex or rubber gloves. After coming in contact with poison sheron, remove any contaminated clothing and gently wash (do not scrub or rub) you skin and under the fingernails with mild soap and water as soon as possible. Washing within two hours after exposure can reduce the likelihood and severity of symptoms; washing the skin after you have symptoms will not help. Creams and ointments that create a barrier between the skin and the urushiol oil may be somewhat effective for people who are frequently exposed to poison sheron. Bentoquatam (Sheron Block ) is one type of barrier cream that may prevent poison sheron dermatitis. It must be reapplied every four hours and it leaves a kev residue on the skin. Avoid burning poisonous vegetation, which can disperse the plant particles in the smoke, irritate the skin, and cause poison sheron dermatitis. documented in this encounter [facility] 08-03-2022 History of Present illness Narrative Images from the original note were not included. Subjective HPI Nontoxic-appearing female presents urgent care chief complaint possible poison sheron. Duration of symptoms 2 days. Associated symptoms erythematous pruritic rash. Patient states day before rash she was weeding her flower beds. Did come in contact poison sheron. Has had poison sheron exposure and rash in the past this feels similar. Has not used any OTC medication. No recent medication changes antibiotic use. Denies any pain. Most prominent symptom is pruritus. Denies any fever body aches chills productive cough chest pain shortness of breath pleuritic pain hemoptysis nausea vomiting abdominal pain or change in bowel or bladder habits past medical history prescription medication use allergies reviewed. .Patient presents with: Rash: Poison sheron on face and arms x 2 days PAST MEDICAL HISTORY Diagnosis Date Anxiety 11/24/2020 Biliary dyskinesia 10/30/2013 Chronic cholecystitis without calculus 12/03/2013 Endometriosis, site unspecified Endometriosis Irregular menstrual cycle Irregular periods IRREGULAR MENSTRUATION Mild dysplasia of cervix (FREDO I) Mixed incontinence PAST SURGICAL HISTORY Procedure Laterality Date DELIVERY ONLY , low transverse, x 1 COLONOSCOPY FLX DX W/COLLJ SPEC WHEN PFRMD 09/16/2013 Colonoscopy COLPO OF CERVIX INC UPPER VAG 11/2005 ESOPHAGOGASTRODUODENOSCOPY TRANSORAL DIAGNOSTIC 09/16/2013 EGD LAPS ABD PRTM&OMENTUM DX W/WO SPEC BR/WA SPX Laparoscopy LASER ABLATION OF ENDOMETRIOSIS LAPS SURG CHOLECYSTECTOMY W/CHOLANGIOGRAPHY 11/24/2013 PAST SURGICAL HISTORY OF 2000 hemorrhoidectomy, anal fissure S CPLO RAMIRO BLADDER SLING 02/2022 ALLERGIES Erythromycin and Honey MEDICATIONS valACYclovir (VALTREX) 500 mg tablet At earliest onset of symptoms take 2 gms , 2 times a day for 1 day topiramate (TOPAMAX) 25 mg tablet Take 2 tablets at bedtime x1 week and then increase to 3 tablets at bedtime and continue. Naratriptan HCl (AMERGE) 1 mg tab Take 1 tablet twice daily as instructed x 4 days monthly (starting 1 day prior to cycle). citalopram (CELEXA) 40 mg tablet Take 1 tablet by mouth once daily. rizatriptan (MAXALT) 5 mg tablet Take 1 tablet by mouth as needed. May repeat in 2 hours if needed peg 3350-Electrolytes (GOLYTELY) 236-22.74-6.74 -5.86 gram suspension Refer to printed prep instructions from your provider. (Patient not taking: Reported on 02/12/2022 ) FAMILY HISTORY Problem Relation Age of Onset other (Fibro-Myalgia) Mother other (Hypoglycemia) Mother Hypertension Maternal Grandmother Heart Paternal Grandfather Stroke Paternal Grandmother Cancer Paternal Aunt OVARIAN Coronary Artery Disease Paternal Uncle Anesthesia Problems No Family History Social History Tobacco Use Smoking status: Never Smokeless tobacco: Never Substance Use Topics Alcohol use: Yes Comment: OCCASIONALLY, once per week Drug use: No BP 126/88 Pulse 83 Temp 37.2 C (98.9 F) Resp 16 Wt 75.8 kg (167 lb) LMP 04/04/2022 (Exact Date) SpO2 97% BMI 26.95 kg/m ] Review of Systems Constitutional: Negative for chills, fever and malaise/fatigue. HENT: Negative for congestion, ear discharge, ear pain, sinus pain and sore throat. Eyes: Negative for blurred vision, pain, discharge and redness. Respiratory: Negative for cough, hemoptysis, sputum production, shortness of breath, wheezing and stridor. Cardiovascular: Negative for chest pain. Gastrointestinal: Negative for abdominal pain, diarrhea, nausea and vomiting. Musculoskeletal: Negative for myalgias. Skin: Positive for itching and rash. Neurological: Negative for dizziness and headaches. Objective Physical Exam Constitutional: General: She is not in acute distress. Appearance: She is not diaphoretic. HENT: Head: Normocephalic. Mouth/Throat: Mouth: Mucous membranes are moist. Pharynx: Oropharynx is clear. No oropharyngeal exudate or posterior oropharyngeal erythema. Eyes: Conjunctiva/sclera: Conjunctivae normal. Pupils: Pupils are equal, round, and reactive to light. Cardiovascular: Rate and Rhythm: Normal rate and regular rhythm. Heart sounds: Normal heart sounds. Pulmonary: Effort: Pulmonary effort is normal. No tachypnea, accessory muscle usage or respiratory distress. Breath sounds: Normal breath sounds. No stridor. Abdominal: Palpations: Abdomen is soft. Tenderness: There is no abdominal tenderness. Musculoskeletal: Cervical back: Normal range of motion and neck supple. No rigidity or tenderness. Lymphadenopathy: Cervical: No cervical adenopathy. Skin: General: Skin is warm and dry. Comments: Maculopapular rash noted highlighted area. Small fluid-filled vesicles noted on right arm. Visual acuity unchanged. No eye involvement at this time. No desquamation of skin. Neurological: Mental Status: She is alert and oriented to person, place, and time. ASSESSMENT/PLAN: 1. Rash - ICD9: 782.1, ICD10: R21 Patient diagnosed with rash. Suspicious of contact dermatitis due to poison sheron exposure. Patient will be placed on prednisone burst. Has tolerated this medication in the past. Red flags for prompt reevaluation discussed. Patient was educated on supportive therapies. Patient will follow up with primary care provider as needed. Patient was instructed to immediately proceed to emergency room for any new, worsening, or symptoms lasting longer than anticipated. The patient's clinical presentation is otherwise unremarkable at this time. Based on exam and clinical finding, the patient is stable for discharge. Plan of care was discussed with patient. Patient verbalizes understanding and agrees to plan of care. This note was generated using [employer] software. It may contain errors in wording, punctuation, or spelling. Gino Man APRN.[facility] documented in this encounter [facility] 08-02-2022 Evaluation + Plan note Future Scheduled TestsPathology Aquaculturist Request 08/02/22Urine Culture 08/02/22MA Mammo Screening Bilateral w/ Kirill 08/02/22 [facility] 08-02-2022 Miscellaneous Notes Patient has been identified by name and date of : Yes Patient phones for refill(s): Requested Prescriptions Pending Prescriptions Disp Refills valACYclovir (VALTREX) 500 mg tablet 8 tablet 3 Sig: At earliest onset of symptoms take 2 gms , 2 times a day for 1 day Date of last office visit in primary care: 05/07/2022 No future appt scheduled. Last 2 Encounter Wt Readings: Date: Wt: 07/06/2022 76.2 kg (168 lb) 06/12/2022 78.8 kg (173 lb 12.8 oz) Previous labs/tests for medication: Not applicable Please advise. Thank you. Naz Melendrez LPN documented in this encounter [facility] 07-30-2022 History of Present illness Narrative NEW PATIENT (CONSULT) HISTORY AND PHYSICAL EXAM (Virtual visit with video) PRIMARY CARE PHYSICIAN: Carol Lebron MD REASON FOR CONSULT: Dizziness REFERRING PHYSICIAN: Carol Lebron MD CHIEF COMPLAINT: Dizziness and headache. For this virtual visit, the patient has been identified by name and (MRN and photo identification as well if available). Those taking part in visit: Patine and physician via [employer]. Consent for this visit received from patient. HISTORY OF PRESENT ILLNESS: Kate Reed is a 46 year old female, with a PMH significant for that below. States dizziness is not all the time. States symptoms started in 2019. Was hospitalized for 4 days at [place] for symptoms at time of initial episodes. States at that time the entire world was spinning - true vertigo. She could not walk a line or stop vomiting. States they did a lot of tests (records not available for review) including MRI and CTs of brain but all unremarkable. Thought possibly due to migraines which pt had history of and thus started on Topamax. States the Topamax cut down the migraines. The rest of her dizzy spells were not that extreme. Last seen in ER for dizziness this summer. States was spinning and nauseous and did have migraines leading up to it. States eye thing with it, in that she sees lightening in her right visual field (uncertain if monocular). States she now is having these with the migraines. Note current dose of Topamax 25mg daily. States the dizziness feels like a part of her life. Not major events, but just brief episodes she feels. Did have vestibular therapy for symptoms but no relief. Migraines usually R tara cranium with photophobia and nausea. Headaches in general occur during menses and in total 6 days per month. Dizziness also more common with menses. Never saw ENT that she recalls. No history of tinnitus, hearing loss, ear pain or irritation of ears. Dizziness can be provoked by looking at technology; also makes headache worse. Does get knots in the back of her neck and at times feels these are provoking headaches. Pain can radiate into shoulder or arms and down the spine. Pain in neck is more so on the R side. REVIEW OF SYSTEMS GENERAL:No weight loss, malaise or fevers. HEENT:No changes in hearing or vision, no nose bleeds or other nasal problems NECK:See HPI RESPIRATORY: Negative for cough, wheezing or shortness of breath. CARDIOVASCULAR: Negative for chest pain, leg swelling or palpitations. GASTROINTESTINAL: Negative for abdominal discomfort, blood in stools or black stools or change in bowel habits GENITOURINARY: No history of dysuria, frequency or incontinence MUSCULOSKELETAL: Negative for joint pain or swelling, back pain or muscle pain. NEUROLOGIC:See HPI. SKIN:Negative for lesions, rash, and itching. HEMATOLOGIC/LYMPHATIC/IMMUNOLOGIC:Nega tive for prolonged bleeding, bruising easily or swollen nodes. ENDOCRINE: Negative for cold or heat intolerance, polyuria, polydipsia and goiter. The remainder of the ROS was reviewed and is negative. LAB/IMAGING: Reviewed and include: WBC (k/uL) Date Value 01/22/2022 4.87 RBC (m/uL) Date Value 01/22/2022 4.17 Hemoglobin (g/dL) Date Value 01/22/2022 12.9 Hematocrit (%) Date Value 01/22/2022 39.3 MCV (fL) Date Value 01/22/2022 94.2 MCH (pg) Date Value 01/22/2022 30.9 MCHC (g/dL) Date Value 01/22/2022 32.8 RDW-CV (%) Date Value 01/22/2022 11.8 Platelet Count (k/uL) Date Value 01/22/2022 310 MPV (fL) Date Value 01/22/2022 9.9 Glucose (mg/dL) Date Value 02/05/2022 90 BUN (mg/dL) Date Value 02/05/2022 7 Creatinine (mg/dL) Date Value 02/05/2022 0.66 Sodium (mmol/L) Date Value 02/05/2022 137 Potassium (mmol/L) Date Value 02/05/2022 3.5 (L) Chloride (mmol/L) Date Value 02/05/2022 102 CO2 (mmol/L) Date Value 02/05/2022 21 (L) Protein, Total (g/dL) Date Value 01/22/2022 7.0 Albumin (g/dL) Date Value 01/22/2022 4.4 Calcium, Total (mg/dL) Date Value 02/05/2022 9.3 Alkaline Phosphatase (U/L) Date Value 01/22/2022 79 Bilirubin, Total (mg/dL) Date Value 01/22/2022 0.3 AST (U/L) Date Value 01/22/2022 32 ALT (U/L) Date Value 01/22/2022 25 Anti-SSA (AI) Date Value 11/09/2013 <0.2 Anti-SSB (AI) Date Value 11/09/2013 <0.2 MEDICATIONS: citalopram (CELEXA) 40 mg tablet Take 1 tablet by mouth once daily. topiramate (TOPAMAX) 25 mg tablet start at 25 mgs once a day for 7 days and then increase to 25 mgs 2 times a day. peg 3350-Electrolytes (GOLYTELY) 236-22.74-6.74 -5.86 gram suspension Refer to printed prep instructions from your provider. (Patient not taking: Reported on 02/12/2022 ) rizatriptan (MAXALT) 5 mg tablet Take 1 tablet by mouth as needed. May repeat in 2 hours if needed valACYclovir (VALTREX) 500 mg tablet At earliest onset of symptoms take 2 gms , 2 times a day for 1 day HISTORIES PAST MEDICAL HISTORY Diagnosis Date Anxiety 11/24/2020 Biliary dyskinesia 10/30/2013 Chronic cholecystitis without calculus 12/03/2013 Endometriosis, site unspecified Endometriosis Irregular menstrual cycle Irregular periods IRREGULAR MENSTRUATION Mild dysplasia of cervix (FREDO I) Mixed incontinence FAMILY HISTORY Problem Relation Age of Onset other (Fibro-Myalgia) Mother other (Hypoglycemia) Mother Hypertension Maternal Grandmother Heart Paternal Grandfather Stroke Paternal Grandmother Cancer Paternal Aunt OVARIAN Coronary Artery Disease Paternal Uncle Anesthesia Problems No Family History SOCIAL HISTORY Social History Tobacco Use Smoking status: Never Smokeless tobacco: Never Substance Use Topics Alcohol use: Yes Comment: OCCASIONALLY, once per week Drug use: No PHYSICAL EXAMINATION LMP 04/04/2022 (Exact Date) GENERAL EXAM: General appearance: NAD, pleasant. HEENT: NC/AT, nasal congestion absent, no oral lesions, membranes moist. NECK: ROM nml. Lungs: No audible cough, wheeze, sob. NEUROLOGICAL EXAM: General: Awake, alert, oriented x3 (person,place,time), speech fluent, no dysarthria; comprehension, naming, repetition intact. Fund of knowledge grossly normal. CN: EOMI without nystagmus, face symmetric, hearing is intact, palate and tongue movements are intact and symmetric. SCM and trapezius strength symmetric. Motor: ENCISO equal and symmetric. Reflexes: Cannot obtain by video. Coordination: FNF, JANE, HTS intact. No tremors. Sensation: Cannot obtain by video. Gait: Stable Assessment and Plan: ASSESSMENT/PLAN: 1. Vertigo - ICD9: 780.4, ICD10: R42 (primary diagnosis) 2. Migraine without status migrainosus, not intractable, unspecified migraine type - ICD9: 346.90, ICD10: G43.909 3. Menstrual migraine without status migrainosus, not intractable - ICD9: 346.40, ICD10: G43.829 Patient with history of vertigo as above that is of uncertain etiology. Extensive workup reported by patient to have taken place at OSH, but those records are not available for review. Ddx based on history alone would include BPPV with recurrence, migraine with vertigo or still possible intracranial cause not determine on prior imaging studies (I.e. small acoustic neuroma that was not yet declared on MRI, demyelinating process). Ddx d/w patient and do feel appropriate to repeat head imaging at this time to confirm no intracranial cause. In addition, given neck pain with radiation feel appropriate to evaluate for C spine stenosis resulting in cervicogenic vertigo. Thus will order MRI brain wwo contrast and MRI C spine wo contrast. Note, no other posterior fossa symptoms to suggest VBI. Will obtain outside records during the interim as well. As for treatment, given headaches persist, and both headaches and vertigo occur with menses, will focus on treatment of migraines today. As she is having over 4 headaches days per month, I do feel appropriate to increase dose of preventative (Topamax) to 50mg for the next week and then 75mg the following week. SE and ADRs d/w pt. She will continue Maxalt prn for headaches not associated with menses. However, for headache prevention with menses, will start Amerge 1mg BID 1 day prior to menses onset and to continue for 3 days following. SE and ADRs d/w pt. She understands that she cannot take Amerge and Maxalt on the same day or in combination. She also has been instructed on 5ht syndrome given that she is on celexa (no prior symptoms while on Maxalt). Pt agrees with plan. She will follow up in ~3 months or sooner prn. If workup unremarkable and symptoms improve, then likely vertigo is due to migraine. I spent a total of 45+ minutes on the date of the service which included preparing to see the patient, [id number] patient care, completing clinical documentation, obtaining and/or reviewing separately obtained history, performing a medically appropriate examination, counseling and educating the patient/family/caregiver, and ordering medications, tests, or procedures. Frandy Smith MD documented in this encounter [facility] 07-06-2022 History of Present illness Narrative Subjective HPI Kate Reed is a 46 year old female who presents with urinary frequency. She was treated here for UTI on 06/12 with cephalexin. She states the symptoms never fully resolved. Chart review shows urine culture showed sensitivity to prescribed medication. Review of Systems Constitutional: Negative for chills and fever. Respiratory: Negative. Cardiovascular: Negative. Gastrointestinal: Negative for abdominal pain. Genitourinary: Positive for frequency. Negative for dysuria and hematuria. Musculoskeletal: Negative for back pain. BP 122/70 Pulse 86 Temp 36.8 C (98.3 F) Resp 16 Wt 76.2 kg (168 lb) LMP 04/04/2022 (Exact Date) SpO2 99% BMI 27.12 kg/m PAST MEDICAL HISTORY Diagnosis Date Anxiety 11/24/2020 Biliary dyskinesia 10/30/2013 Chronic cholecystitis without calculus 12/03/2013 Endometriosis, site unspecified Endometriosis Irregular menstrual cycle Irregular periods IRREGULAR MENSTRUATION Mild dysplasia of cervix (FREDO I) Mixed incontinence PAST SURGICAL HISTORY Procedure Laterality Date DELIVERY ONLY , low transverse, x 1 COLONOSCOPY FLX DX W/COLLJ SPEC WHEN PFRMD 09/16/2013 Colonoscopy COLPO OF CERVIX INC UPPER VAG 11/2005 ESOPHAGOGASTRODUODENOSCOPY TRANSORAL DIAGNOSTIC 09/16/2013 EGD LAPS ABD PRTM&OMENTUM DX W/WO SPEC BR/WA SPX Laparoscopy LASER ABLATION OF ENDOMETRIOSIS LAPS SURG CHOLECYSTECTOMY W/CHOLANGIOGRAPHY 11/24/2013 PAST SURGICAL HISTORY OF 2000 hemorrhoidectomy, anal fissure S CPLO RAMIRO BLADDER SLING 02/2022 ALLERGIES Erythromycin and Honey MEDICATIONS citalopram (CELEXA) 40 mg tablet Take 1 tablet by mouth once daily. topiramate (TOPAMAX) 25 mg tablet start at 25 mgs once a day for 7 days and then increase to 25 mgs 2 times a day. rizatriptan (MAXALT) 5 mg tablet Take 1 tablet by mouth as needed. May repeat in 2 hours if needed valACYclovir (VALTREX) 500 mg tablet At earliest onset of symptoms take 2 gms , 2 times a day for 1 day nitrofurantoin monohydrate and macrocrystal (MACROBID) 100 mg capsule Take 1 capsule by mouth twice daily for 7 days. peg 3350-Electrolytes (GOLYTELY) 236-22.74-6.74 -5.86 gram suspension Refer to printed prep instructions from your provider. (Patient not taking: Reported on 02/12/2022 ) FAMILY HISTORY Problem Relation Age of Onset other (Fibro-Myalgia) Mother other (Hypoglycemia) Mother Hypertension Maternal Grandmother Heart Paternal Grandfather Stroke Paternal Grandmother Cancer Paternal Aunt OVARIAN Coronary Artery Disease Paternal Uncle Anesthesia Problems No Family History Social History Tobacco Use Smoking status: Never Smokeless tobacco: Never Substance Use Topics Alcohol use: Yes Comment: OCCASIONALLY, once per week Drug use: No Objective Physical Exam Vitals and nursing note reviewed. Constitutional: Appearance: Normal appearance. Cardiovascular: Rate and Rhythm: Normal rate and regular rhythm. Heart sounds: Normal heart sounds. Pulmonary: Effort: Pulmonary effort is normal. Breath sounds: Normal breath sounds. Abdominal: General: There is no distension. Palpations: Abdomen is soft. There is no mass. Tenderness: There is no abdominal tenderness. There is no right CVA tenderness, left CVA tenderness or guarding. Skin: General: Skin is warm and dry. Neurological: Mental Status: She is alert. ASSESSMENT/PLAN: 1. Urinary frequency - ICD9: 788.41, ICD10: R35.0 recurrent - UA positive for daniel esterase and hematuria - Send urine for culture - Begin treatment with Macrobid 100 mg BID for 7 days - Patient education for prevention given - UA DIP, URINE (POC) - URINE CULTURE - NITROFURANTOIN MONOHYDRATE & MACROCRYSTAL 100 MG ORAL CAP - Follow-up with your PCP in 3-5 days if symptoms have not improved or sooner if symptoms worsen - Discussed red flags and need for immediate medical evaluation if any occur. - Discussed supportive care treatment with fluids, rest and analgesia. - Discussed expected course of illness Nelly Taylor APRN.INDUCTION COORDINATION ENGINEER documented in this encounter [facility] 07-06-2022 Instructions Nelly Taylor APRN.CNP - 07/06/2022 11:06 AM EDT ASSESSMENT/PLAN: 1. Urinary frequency - ICD9: 788.41, ICD10: R35.0 recurrent - UA positive for daniel esterase and hematuria - Send urine for culture - Begin treatment with Macrobid 100 mg BID for 7 days - Patient education for prevention given - UA DIP, URINE (POC) - URINE CULTURE - NITROFURANTOIN MONOHYDRATE & MACROCRYSTAL 100 MG ORAL CAP - Follow-up with your PCP in 3-5 days if symptoms have not improved or sooner if symptoms worsen - Discussed red flags and need for immediate medical evaluation if any occur. - Discussed supportive care treatment with fluids, rest and analgesia. - Discussed expected course of illness Nelly Taylor APRN.CNP [facility] PATIENT INFO BLADDER INFECTION OVERVIEW Bladder infections are one of the most common infections, causing symptoms of burning with urination and needing to urinate frequently. A bladder infection is a type of urinary tract infection (UTI). Bladder infections are more common is women than men. Most women have an uncomplicated bladder infection that is easily treated with a short course of antibiotics. In men, bladder infections may also affect the prostate gland, and a longer course of treatment may be needed. BLADDER INFECTION CAUSES The urinary tract includes the kidneys (which filter urine), ureters (the tube that carries urine from the kidneys to the bladder), the bladder (which stores urine), and urethra (the tube that carries urine out of the bladder). Bacteria do not normally live in these areas. However, bacteria normally live close to the urethra in women and men who are not circumcised. Bladder infections occur when bacteria travel up the urethra into the bladder. Factors that increase the risk of developing a bladder infection include: Vaginal sex Use of spermicides History of past bladder infections Diabetes In men, not being circumcised or having anal sex increase the risk of bladder infections. BLADDER INFECTION SYMPTOMS The typical symptoms of a bladder infection include: Pain or burning when urinating Frequent need to urinate Urgent need to urinate Blood in the urine Fever, back pain, nausea, or vomiting are not common symptoms of a bladder infection, but can occur in people with a kidney infection (pyelonephritis). If you have these symptoms, you should call your doctor or nurse immediately. Is it a bladder infection or something else? -- Burning with urination can also occur in people with vaginitis (eg, yeast infection) or urethritis (inflammation of the urethra). For this reason, it is important to call your healthcare provider before assuming you have a bladder infection. BLADDER INFECTION DIAGNOSIS Simple bladder infections are usually diagnosed based upon your symptoms alone. However, most patients, especially those who have bladder infection symptoms for the first time, should see a healthcare provider for urine testing. Urine culture -- A urine culture is a test that uses a sample of urine to try and grow bacteria in a laboratory. It usually requires about 48 hours to get results. However, a urine culture is not always required to diagnose a bladder infection. Urine culture is often recommended if: You have never had a bladder infection before You have symptoms that are not typical for bladder infection You have had resistant bladder infections before You have frequent bladder infections You do not begin to feel better within 24 to 48 hours after starting antibiotics You are BLADDER INFECTION TREATMENT Bladder infection -- In young, healthy adolescents and adults with a bladder infection, the usual treatment includes a three to seven day course of antibiotics. The typical drugs chosen are: trimethoprim-sulfamethoxazole (Bactrim ), nitrofurantoin (Macrobid ), ciprofloxacin (Cipro ) or levofloxacin (Levaquin ). In men, the infection may involve your prostate gland and treatment is usually given for at least 7 days. Your symptoms should begin to resolve within one day after starting treatment. It is important to take the full course of antibiotics to completely eliminate the infection. If your symptoms persist for more than two or three days after starting treatment, call your healthcare provider. If needed, you can take a prescription medication that numbs the bladder and urethra (phenazopyridine [Pyridium ]) to reduce the burning pain of some UTIs. A similar medication is available without a prescription (eg, Uristat). Both medications change the color of the urine (usually blue or orange) and can interfere with laboratory testing. You should not take these medications for more than 48 hours due to the risk of side effects. These medications do not treat the infection and must be taken along with an antibiotic. Some providers recommend drinking more fluids while treating bladder infections to help flush bacteria from the bladder. Others believe that drinking more fluids may dilute the antibiotic in the bladder and make the medication less effective. No studies have been performed to address this issue. There are also no good studies on the effectiveness of cranberry juice for treating a bladder infection; we do not recommend using cranberry juice to treat bladder infections. Follow-up care -- Follow-up testing is not needed in healthy, young men or women with a bladder infection if symptoms resolve. women are usually asked to have a repeat urine culture one to two weeks after treatment has ended to make sure the bacteria are no longer in the urine. RECURRENT BLADDER INFECTIONS Bladder infections versus other causes -- Some adults, especially women, develop bladder infections frequently. In this case, it is important to confirm that your symptoms (eg, pain or burning, frequency, and urgency) are caused by a bladder infection. Symptoms are usually similar from one infection to another. The best way to confirm an infection is to have a urine culture. If your urine culture is negative for infection, other causes of pain, burning, and frequency should be investigated. There is no reason to take antibiotics if your urine culture is negative. Need for further testing -- If you continue to develop bladder infections, you may require further testing. If you continue to notice blood in your urine after your bladder infection has cleared, you should have further testing. Preventing recurrent UTIs -- Women with recurrent urinary tract infections may be advised to take steps to prevent bladder infections, including one or more of the following: Changes in control -- Women who develop frequent bladder infections and use spermicides, particularly those who also use a diaphragm, may be encouraged to use an alternate method of control. Cranberry products -- Taking cranberry juice or cranberry tablets has been promoted as one way to help prevent frequent bladder infections. However, this has not been proven. Drinking more fluid and urinating after intercourse -- Although studies have not proven that drinking more fluids or urinating soon after intercourse can prevent infection, some healthcare providers recommend these measures since they are not harmful. Drinking more fluid may help to wash out bacteria that enter the bladder. Postmenopausal women -- Postmenopausal women who develop recurrent bladder infections may benefit from using vaginal estrogen. Vaginal estrogen is available in a flexible ring that is worn in the vagina for three months (eg, Estring ), a small tablet (Vagifem ), or a cream (eg, Premarin or Estrace ). Vaginal estrogen is discussed in more detail in a separate topic review. Antibiotics -- A preventive antibiotic treatment may be recommended if you repeatedly develop bladder infections and have not responded to other preventive measures. Antibiotics are highly effective in preventing recurrent bladder infections and can be taken in several different ways. Preventive antibiotic -- You can take a low dose of an antibiotic once per day or three times per week for six months to several years. Antibiotics following intercourse -- In women who develop urinary tract infections after sex, taking a single low dose antibiotic after intercourse can help to prevent bladder infections. Self-treatment -- A plan to begin antibiotics at the first sign of a bladder infection may be recommended in some situations. Before starting this regimen, it is important that you have had testing (urine cultures) to confirm that your symptoms are caused by a bladder infection; some people have symptoms of a bladder infection but do not actually have an infection. documented in this encounter [facility] 06-12-2022 Miscellaneous Notes Noted and agree Monique Presley APRN.CNP Patient of Dr. Lebron. Protocol Recommended: See provider within 24 hours due to deep cough and patient's concern for pneumonia. [facility]. Reason for Disposition [1] Continuous (nonstop) coughing interferes with work or school AND [2] no improvement using cough treatment per Care Advice Answer Assessment - Initial Assessment Questions 1. COVID-19 DIAGNOSIS: Patient reports tested positive for covid with home test today 2. COVID-19 EXPOSURE: was recently on vacation, out of state/country 3. ONSET:06/09/22 4. WORST SYMPTOM: deep cough-concerned about her lungs 5. COUGH: yes 6. FEVER: States she feels feverish but has not taken temperature 7. RESPIRATORY STATUS: Denies SOB, chest pain or chest tightness 8. LEJRUM-MBYK-CPSJC:same 9. HIGH RISK DISEASE: does not appear to be high risk-see history 10. VACCINE:yes 11. BOOSTER:no 12. : no 13. OTHER SYMPTOMS: + fatigue, +headache, + muscle pain. Denies SOB, sore throat, nausea, vomiting or diarrhea 14. O2 SATURATION MONITOR: n/a Protocols used: CORONAVIRUS (COVID-19) DIAGNOSED OR [id number] documented in this encounter [facility] 05-07-2022 History of Present illness Narrative SUBJECTIVE: HEPATITIS C SCREENING Never done HIV SCREENING Never done DTAP,TDAP,TD(1 - Tdap) due on 09/17/1999 MAMMOGRAM due on 01/08/2019 COLORECTAL CANCER SCREENING due on 2019 PAP TESTING due on 01/04/2022 HPV TESTING due on 01/04/2022 HPI Kate Reed is a 46 year old female. PMH signficiant for ACTIVE PROBLEM LIST Endometriosis, Site Unspecified Gerd (Gastroesophageal Reflux Disease) Anxiety PCP: Carol Lebron MD She was seen in the emergency department x2 on May 02, 2022 for dizziness and giddiness. [address] Reviewed and care everywhere. Vital signs were stable. Labs in acceptable range. Noted to have dizziness of uncertain cause. MyChart message indicates that there was concern for virus or dehydration. She had questions regarding whether to continue on with fluoxetine or go back to citalopram. There was concern that symptoms may have been related to the change. Presents today for follow-up. She is able to bring of test results on her phone to show me during her visit. CT head was negative. Chest x-ray was negative. Notes no recurrence of symptoms since her ER visit. Notes that she discontinued fluoxetine and resumed citalopram. Notes overall feeling improved. Notes that her dizziness was not consistent with previous vertigo, very different. Reports she does have a history of migraines. She notes she was dehydrated in the ER, was having nausea and unable to maintain oral intake at that time. She reports no vision problems no speech problems no mobility problems. Currently doing well. Interested in seeing neurologist if she could. Review of Systems Constitutional: Negative. Neurological: Positive for dizziness. : Objective Physical Exam Vitals and nursing note reviewed. Constitutional: Appearance: Normal appearance. HENT: Head: Normocephalic and atraumatic. Eyes: General: Lids are normal. Extraocular Movements: Extraocular movements intact. Conjunctiva/sclera: Conjunctivae normal. Comments: ANISHA Cardiovascular: Rate and Rhythm: Normal rate and regular rhythm. Heart sounds: Normal heart sounds. Pulmonary: Effort: Pulmonary effort is normal. Breath sounds: Normal breath sounds. Musculoskeletal: Right lower leg: No edema. Left lower leg: No edema. Skin: General: Skin is warm and dry. Neurological: General: No focal deficit present. Mental Status: She is alert and oriented to person, place, and time. Cranial Nerves: No cranial nerve deficit. Sensory: No sensory deficit. Motor: No weakness. Coordination: Coordination normal. Gait: Gait normal. ALLERGIES Allergen Reactions Erythromycin GI Upset Honey Swelling Medications: citalopram (CELEXA) 40 mg tablet Take 40 mg by mouth. topiramate (TOPAMAX) 25 mg tablet start at 25 mgs once a day for 7 days and then increase to 25 mgs 2 times a day. rizatriptan (MAXALT) 5 mg tablet Take 1 tablet by mouth as needed. May repeat in 2 hours if needed valACYclovir (VALTREX) 500 mg tablet At earliest onset of symptoms take 2 gms , 2 times a day for 1 day FLUoxetine (PROZAC) 40 mg capsule Take 1 capsule by mouth once daily. acetaminophen (TYLENOL EXTRA STRENGTH) 500 mg tablet Take 2 tablets by mouth every 6 hours as needed for pain. ibuprofen (MOTRIN) 600 mg tablet Take 1 tablet by mouth every 6 hours as needed for pain. docusate sodium (COLACE) 100 mg capsule Take 1 capsule by mouth twice daily. peg 3350-Electrolytes (GOLYTELY) 236-22.74-6.74 -5.86 gram suspension Refer to printed prep instructions from your provider. PAST MEDICAL HISTORY Diagnosis Date Anxiety 11/24/2020 Biliary dyskinesia 10/30/2013 Chronic cholecystitis without calculus 12/03/2013 Endometriosis, site unspecified Endometriosis Irregular menstrual cycle Irregular periods IRREGULAR MENSTRUATION Mild dysplasia of cervix (FREDO I) Mixed incontinence Social History Tobacco Use Smoking status: Never Smoker Smokeless tobacco: Never Used Substance Use Topics Alcohol use: Yes Comment: OCCASIONALLY, once per week Drug use: No ASSESSMENT/PLAN: 1. Dizziness - ICD9: 780.4, ICD10: R42 (primary diagnosis) - CONSULT TO NEUROLOGY 2. Hx of migraines - ICD9: V12.49, ICD10: Z86.69 - CONSULT TO NEUROLOGY 3. Nausea - ICD9: 787.02, ICD10: R11.0 - CONSULT TO NEUROLOGY She was seen in ER for dizziness and nausea. Noted to be dehydrated. Unclear if dizziness was related to dehydration, switching from fluoxetine to escitalopram or migraine. She had a negative CT of head. She notes stopping fluoxetine and resuming citalopram without recurrence of any symptoms since seen in the ER. Notes she would like to have further evaluation with neurologist, wonders if dizziness is related to a migraine or other concern. Jacy Newman APRN.CNS Medical Decision Making: Problems: Moderate: New problem with uncertain prognosis Data: Independent interpretation of test from other physician/QHCP Risk: Moderate: Drug management Medical Decision Making Level: 4 - Moderate documented in this encounter [facility] 05-07-2022 Miscellaneous Notes Addressed through [employer]. Left message for return call. Patient needs called and asked to schedule a follow up ER appointment. Dr Lebron is out of the office today and most of next week. Thank you Silvina Presley APRN.CNP ER report in Care Everywhere. Please get ER records, and patient needs an ER follow up to discuss. Thank you Silvina Presley APRN.CNP Pt calling back checking status. She does not know what to do with her AM medications. Concerned with Fluoxetine. Does she take this or change back to the Citalapram. Please advise. Lindy Hauser LPN Patient calling and states she was advised to go to ER yesterday due to symptoms. She states she went to [facility] ER and had testing done and was told to follow up with PCP. Patient requesting to be seen today or as soon as possible. No appt's available with Dr. Lebron until 05/16 at this time and patient does not want to see other providers. Patient declined making future appt and requested to send message to Dr. Lebron asking her if she could fit patient in as soon as possible to review hospital records and discuss treatment plan. Informed patient that I would send Dr. Lebron this message. Please advise patient. Thank you. documented in this encounter [facility] 05-02-2022 Hospital Discharge instructions Patient Education 05/02/2022 20:05:49 Dizziness, Uncertain Cause Dizziness (Uncertain Cause) Dizziness is a common symptom. It may be described as lightheadedness, spinning, or feeling like you are going to faint. Dizziness can have many causes. Be sure to tell the healthcare provider about: All medicines you take, including prescription, [id number], herbs, and supplements Any other symptoms you have Any health problems you are being treated for Any past major health problems you've had, such as a heart attack, balance issues, hearing problems, or blood pressure problems Anything that causes the dizziness to get worse or better Today's exam did not show an exact cause for your dizziness. Other tests may be needed. Follow up with your healthcare provider. Home care Dizziness that occurs with sudden standing may be a sign of mild dehydration. Drink extra fluids for the next few days. If you recently started a new medicine, stopped a medicine, or had the dose of a current medicine changed, talk with the prescribing healthcare provider. Your medicine plan may need adjustment. If dizziness lasts more than a few seconds, sit or lie down until it passes. This may help prevent injury in case you pass out. Get up slowly when you feel better. Don't drive or use power tools or dangerous equipment until you have had no dizziness for at least 48 hours. Follow-up care Follow up with your healthcare provider for further evaluation within the next 7 days or as advised. When to seek medical advice Call your healthcare provider for any of the following: Worsening of symptoms or new symptoms Passing out or seizure Repeated vomiting Headache Palpitations (the sense that your heart is fluttering or beating fast or hard) Shortness of breath Blood in vomit or stool (black or red color) Weakness of an arm or leg or 1 side of the face Vision or hearing changes Trouble walking or speaking Chest, arm, neck, back, or jaw pain [id number] [employer] [place] [address]. All rights reserved. This information is not intended as a substitute for professional medical care. Always follow your healthcare professional's instructions. Follow Up Care 05/02/2022 16:06:45 With:PROSPER COBOS CHECKER - INDUCTION COORDINATION ENGINEER Address: [address] [place] [id number] When:2-4 days [facility] 05-02-2022 Miscellaneous Notes Patient returns call and triage completed. See triage encounter. Patient to go to [facility] ED for evaluation. Shayna Palmer RN Call placed to patient with no answer. Message left for patient to return call and ask to speak to a triage nurse. Shayna Palmer RN Triage please contact patient. documented in this encounter [facility] 05-02-2022 Miscellaneous Notes Patient calls to report that she is having dizziness again. She reports that it went away earlier today and just recently came back. Triage completed with difficulty. Patient all over with varying descriptions of how dizziness feels. Patient becoming anxious. Recommended patient go to ED now. Patient going to go to [facility] ED to be evaluated for anything acute and will call back to follow up once initial evaluation done in ED. Care advice reviewed. Patient verbalizes understanding. Reason for Disposition Patient sounds very sick or weak to the triager Answer Assessment - Initial Assessment Questions 1. DESCRIPTION: Patient reports for the past 3 days she has been having this funny feeling in her head that it is hard to describe but it does not feel like vertigo. Patient reports that her head just doesn't feel right and it is spinning. 2. LIGHTHEADED: Not faint, not woozy, not weak upon standing, just a funny feeling not easy to describe. 3. VERTIGO: Reports a spinning feeling but not like her usual vertigo. 4. SEVERITY: - MODERATE: Feels very unsteady when walking, but not falling; interferes with normal activities (e.g., school, work) . - 5. ONSET: 3 days ago 6. AGGRAVATING FACTORS: Patient not certain but maybe changing position. 7. HEART RATE: Patient reports HR feels fast but not certain how fast. 8. CAUSE: Unknown 9. RECURRENT SYMPTOM: Yes has history of vertigo and migraines but hasn't ever had dizziness that feels like this. 10. OTHER SYMPTOMS: No fever, chest pain, vomiting, diarrhea, or bleeding. 11. : No Protocols used: DIZZINESS - [id number] documented in this encounter [facility] 04-30-2022 Miscellaneous Notes jenniffer--01/31/22 Next--none noted Last refill --10/03/21 60 with 3 refills Last labs--02/23/22 documented in this encounter [facility] 04-19-2022 Miscellaneous Notes Patient has been identified by name and date of : Yes Patient phones for refill(s): Pending Prescriptions Disp Refills FLUOXETINE 40 MG CAPSULE 30 capsule 11 Sig: Take 1 capsule by mouth once daily. JUANITA: No Prescription not received at [facility]. Previous order put in as a med update only. Date of last office visit with pcp: 01/31/2022 Future visit: none Last 2 Encounter Wt Readings: Date: Wt: 04/06/2022 77.1 kg (170 lb) 03/27/2022 77.1 kg (170 lb) Previous labs/tests for medication: Blood Pressure: BUN (mg/dL) Date Value 02/05/2022 7 09/23/2020 9 Sodium (mmol/L) Date Value 02/05/2022 137 09/23/2020 137 Last 1 Encounter BP Readings: Date: BP: 04/06/2022 110/70 Liver Function: ALT (U/L) Date Value 01/22/2022 25 09/23/2020 21 AST (U/L) Date Value 01/22/2022 32 09/23/2020 25 Please advise. Thank you. Shayna Palmer RN documented in this encounter [facility] 04-06-2022 Instructions Erinn Barton APRN.TRACEE - 04/06/2022 11:50 AM EDT OK to resume normal activities in 1 week. No tampons until next cycle. Follow up at 6 months for final postop check, or sooner if needed. documented in this encounter [facility] 04-06-2022 History of Present illness Narrative Female Pelvic Medicine & Reconstructive Surgery Post-Op Visit Kate Reed is a 46 year old female who presents for a 5 Week post-op check s/p 02/26/2022;SLING SURGERY FOR STRESS INCONTINENCE W/ TENSION FREE VAG TAPE and CYSTOSCOPY and POSTERIOR COLPORRHAPHY W/ REPAIR RECTOCELE AND PERINEORRHAPHY . Post-op complications: no Bleeding: no Pain: no If you had pain related to your prolapse before surgery, has your pain resolved? Not Applicable Abnormal vaginal discharge: no PFDI-20 Do you: Usually experience pressure in the lower abdomen? No (0) Usually experience heaviness or dullness in the pelvic area? No (0) Usually have a bulge or something falling out that you can see or feel in your vaginal area? No (0) Ever have to push on the vagina or around the rectum to have or complete a bowel movement? No (0) Usually experience a feeling of incomplete bladder emptying? No (0) Ever have to push up on a bulge in the vaginal area with your fingers to start or complete urination? No (0) Feel you need to strain too hard to have a bowel movement? Yes, somewhat bothersome (2) Feel you have not completely emptied your bowels at the end of a bowel movement? Yes, somewhat bothersome (2) Seeing GI for constipation/bowel issues, has upcoming colonoscopy next week. Usually lose stool beyond your control if your stool is well formed? No (0) Usually lose stool beyond your control if your stool is loose? No (0) Usually lose gas from the rectum beyond your control? No (0) Usually have pain when you pass your stool? No (0) Experience a strong sense of urgency and have to childress to the bathroom to have a bowel movement? No (0) Does part of your bowel ever pass through the rectum and bulge outside during or after a bowel movement? No (0) Usually experience frequent urination? No (0) Usually experience urine leakage associated with a feeling of urgency, that is, a strong sensation of needing to go to the bathroom? No (0) Usually experience urine leakage related to coughing, sneezing or laughing? No (0) Usually experience small amounts of urine leakage (that is, drops)? No (0) Usually experience difficulty emptying your bladder? No (0) Usually experience pain or discomfort in the lower abdomen or genital region? Yes, somewhat bothersome (2) Overall, how satisfied were you with your postoperative pain medication? Very satisfied With regard to your expectations before surgery, did you have the amount of pain you expected, more pain, or less pain? About the amount of pain I expected Was the preoperative teaching you had about pain expectations helpful? Yes Were the discharge instructions you received about pain medications helpful? Yes Break And Load Operator offered:Patient declines OBJECTIVE: LMP 02/08/2022 General: Well appearing, alert, in no acute distress, well-hydrated, well nourished. Abdomen: Abdomen soft, non-tender Pelvic: Ext. Genitalia, No lesions or other abnormalities Vagina: pt on menses; vagina cleaned with moist swabs. Incision healing WNL, suture remnant present Cervix: Normal Urethra: Normal Bimanual: No tenderness, No masses Rectovaginal: Deferred ASSESMENT: Kate Reed is a 46 year old female who is post-op; stable post-operative course uncomplicated PLAN: May resume normal activities. May resume intercourse in 1 week. OK to proceed with colonoscopy in 1 week. Follow up 6mos postop, sooner prn. Patient expressed understanding. Erinn Barton APRN.INDUCTION COORDINATION ENGINEER documented in this encounter [facility] 03-29-2022 Miscellaneous Notes Patient would like to cancel Surgery and Colonoscopy. She had pelvic sling surgery and is not ready to have another surgery at this time. She will call back when she is ready to reschedule. Pt called to cancel colonoscopy. She did not wish to r/s at the time of call. 04-12-2022 COLON/EXTERNAL HEMORRHOIDS [facility] 04-18-2022 ASC Colon documented in this encounter [facility] 03-27-2022 History of Present illness Narrative HISTORY AND PHYSICAL Kate Reed 1975 REFERRING PHYSICIAN: Self CHIEF COMPLAINT: No chief complaint on file. HPI: The patient is a 46 year old female presents with complaint of external hemorrhoid that intermittently swells up and causes traction pain. It had been the site of a previous thrombosed hemorrhoid. She notes that it would swell for about 3-4 days, and she notes several episodes of this a month. She was scheduled for a colonoscopy at [facility], but would like to have a hemorrhoidectomy at the same time. She notes bowel movements every three days, mostly hard BMs. She states that Colace made her bowel movements normal, but she is concerned about fdc usage. She had been taking fiber supplements such as metamucil, but that made her problems. She states that she is drinking adequate amounts of water. She does admit with straining with bowel movements. She states that this has been a life long problems. She states that she had a hemorrhodectomy/fissurectomy 20 years ago, and that it was very painful She asks about hemorrhoidal banding, she was told that this does not work with external hemorrhoids. PAST MEDICAL HISTORY Diagnosis Date Anxiety 11/24/2020 Biliary dyskinesia 10/30/2013 Chronic cholecystitis without calculus 12/03/2013 Endometriosis, site unspecified Endometriosis Irregular menstrual cycle Irregular periods IRREGULAR MENSTRUATION Mild dysplasia of cervix (FREDO I) Mixed incontinence PAST SURGICAL HISTORY Procedure Laterality Date DELIVERY ONLY , low transverse, x 1 COLONOSCOPY FLX DX W/COLLJ SPEC WHEN PFRMD 09/16/2013 Colonoscopy COLPO OF CERVIX INC UPPER VAG 11/2005 ESOPHAGOGASTRODUODENOSCOPY TRANSORAL DIAGNOSTIC 09/16/2013 EGD LAPS ABD PRTM&OMENTUM DX W/WO SPEC BR/WA SPX Laparoscopy LASER ABLATION OF ENDOMETRIOSIS LAPS SURG CHOLECYSTECTOMY W/CHOLANGIOGRAPHY 11/24/2013 PAST SURGICAL HISTORY OF 2000 hemorrhoidectomy, anal fissure S CPLO RAMIRO BLADDER SLING 02/2022 Current Outpatient Medications Medication Sig acetaminophen (TYLENOL EXTRA STRENGTH) 500 mg tablet Take 2 tablets by mouth every 6 hours as needed for pain. ibuprofen (MOTRIN) 600 mg tablet Take 1 tablet by mouth every 6 hours as needed for pain. docusate sodium (COLACE) 100 mg capsule Take 1 capsule by mouth twice daily. citalopram (CELEXA) 40 mg tablet Take by mouth once daily. peg 3350-Electrolytes (GOLYTELY) 236-22.74-6.74 -5.86 gram suspension Refer to printed prep instructions from your provider. (Patient not taking: Reported on 02/12/2022 ) rizatriptan (MAXALT) 5 mg tablet Take 1 tablet by mouth as needed. May repeat in 2 hours if needed topiramate (TOPAMAX) 25 mg tablet start at 25 mgs once a day for 7 days and then increase to 25 mgs 2 times a day. valACYclovir (VALTREX) 500 mg tablet At earliest onset of symptoms take 2 gms , 2 times a day for 1 day ALLERGIES: Erythromycin and Honey PERSONAL HISTORY: Social History Tobacco Use Smoking status: Never Smoker Smokeless tobacco: Never Used Substance Use Topics Alcohol use: Yes Comment: OCCASIONALLY, once per week Drug use: No FAMILY HISTORY Problem Relation Age of Onset other (Fibro-Myalgia) Mother other (Hypoglycemia) Mother Hypertension Maternal Grandmother Heart Paternal Grandfather Stroke Paternal Grandmother Cancer Paternal Aunt OVARIAN Coronary Artery Disease Paternal Uncle Anesthesia Problems No Family History The review of systems data was entered by the nurse and reviewed by me Nursing Notes: Ekta Coto 03/27/2022 8:04 AM Signed REVIEW OF SYSTEMS: General: The patient denies fatigue, denies weight loss, denies weight gain, denies feeling hot, and denies feelings of cold. Eyes: The patient denies glaucoma, denies eye injury/surgery, wears glasses or contacts. Ear/Nose/Throat: The patient NOTES allergies, denies hayfever, denies ear infections, and denies bloody noses. Cardiovascular: The patient denies chest pain, denies heart disease, denies high blood pressure,denies cardiac stent, denies prior heart attack, denies irregular heart beat, denies high cholesterol, denies poor circulation, denies heart failure, other cardiac issues, denies claudication, denies cold feet, denies peripheral arterial stent. Respiratory: The patient denies tuberculosis, denies pneumonia, denies frequent cough, denies pulmonary embolism, denies shortness of breath, and denies coughing up blood. Gastrointestinal: The patient denies difficulty swallowing, NOTES acid reflux, denies ulcers, denies vomiting, denies jaundice/hepatitis, denies gallbladder problems, denies black or tarry stools, NOTES hemorrhoids, denies bleeding from rectum, denies diverticulitis, NOTES constipation, denies diarrhea, denies loss of stool control, and denies hernias. Kidney/Bladder: The patient denies kidney stones, denies urine infections, and denies bloody urine. Skin: The patient denies a history of skin cancer, denies bleeding/changing moles, and denies a history of skin rash. Neurologic: The patient denies a history of epilepsy/convulsions, NOTES headaches, denies head/spinal injuries, and denies stroke/TIA. Psychiatric: The patient denies psychiatric medications, denies depression, and denies voices, denies substance abuse. Endocrine: The patient denies thyroid disorders, denies diabetes, and denies hormonal problems. Hematologic: The patient denies a history of bruising, denies bleeding, and denies anemia, denies blood clots. Infections: The patient denies a history of measles and mumps, denies rheumatic fever, and denies sexually transmitted diseases. Musculoskeletal: The patient denies back pain/injury, denies back problems, denies sciatica, denies knee/foot trouble, denies arthritis, or denies gout. When was patient's last Mammogram screening? 2020 Last Colonoscopy: 09/16/2013 Ekta Coto PHYSICAL EXAMINATION: General: The patient is 46 year old female, well nourished, well hydrated in no acute distress. The patient is oriented to time, place, and person. VITALS: Blood pressure 114/57, pulse 107, temperature 37.1 C (98.7 F), height 167.6 cm (5' 6), weight 77.1 kg (170 lb), last menstrual period 02/08/2022, SpO2 98 %. Body mass index is 27.44 kg/m . Head: Normal cephalic, atraumatic Eyes: pupils are equally round, sclera are clear/anicteric Neck is supple with no tracheal deviation Respiratory: Normal respiratory excursion and pattern. Abdominal exam: benign Extremities: no clubbing, cyanosis or edema. Neuro: non focal Psych: normal mood Assessment IMPRESSION: screening for colon cancer, external hemorrhoid PLAN: I have discussed the above with the patient. I have offered external hemorrhoidectomy and colonoscopy. I have explained the procedure to the patient. I have counseled the patient as to the risks of the procedure - colonoscopy - , including but not limited to: infection, bleeding, perforation of the GI tract, injury to any intraabdominal organs such as the liver/spleen, inability to complete the procedure, complications of anesthesia, etc. the patient understands. I have counseled the patient as to the risks of the procedure - hemorrhoidectomy, including but not limited to: infection, bleeding, injury to any blood vessels/nerves, scar tissue, postoperative pain - prolonged with hemorrhoidectomy, wound infections, complications of anesthesia, etc. the patient understands. The patient wishes to proceed. Will schedule this at [facility] on the same day I have answered all questions to the patient s satisfaction and the patient has no further questions. I have confirmed and edited as necessary, the PFSH and ROS obtained by others. . Diagnoses: (K64.9) Hemorrhoids, unspecified hemorrhoid type (primary encounter diagnosis) (Z12.11) Screening for colon cancer Return to Clinic: The patient will be scheduled for procedures at [facility]. I spent a total of 21 minutes on the date of the service which included preparing to see the patient with review of any pertinent medical records, [id number] patient care, obtaining oral medical history from the patient in this encounter, counseling and educating the patient/family/caregiver, and scheduling of procedures, and completing appropriate medical documentation. Carmen Tony MD documented in this encounter [facility] 03-27-2022 Nurse Note REVIEW OF SYSTEMS: General: The patient denies fatigue, denies weight loss, denies weight gain, denies feeling hot, and denies feelings of cold. Eyes: The patient denies glaucoma, denies eye injury/surgery, wears glasses or contacts. Ear/Nose/Throat: The patient NOTES allergies, denies hayfever, denies ear infections, and denies bloody noses. Cardiovascular: The patient denies chest pain, denies heart disease, denies high blood pressure,denies cardiac stent, denies prior heart attack, denies irregular heart beat, denies high cholesterol, denies poor circulation, denies heart failure, other cardiac issues, denies claudication, denies cold feet, denies peripheral arterial stent. Respiratory: The patient denies tuberculosis, denies pneumonia, denies frequent cough, denies pulmonary embolism, denies shortness of breath, and denies coughing up blood. Gastrointestinal: The patient denies difficulty swallowing, NOTES acid reflux, denies ulcers, denies vomiting, denies jaundice/hepatitis, denies gallbladder problems, denies black or tarry stools, NOTES hemorrhoids, denies bleeding from rectum, denies diverticulitis, NOTES constipation, denies diarrhea, denies loss of stool control, and denies hernias. Kidney/Bladder: The patient denies kidney stones, denies urine infections, and denies bloody urine. Skin: The patient denies a history of skin cancer, denies bleeding/changing moles, and denies a history of skin rash. Neurologic: The patient denies a history of epilepsy/convulsions, NOTES headaches, denies head/spinal injuries, and denies stroke/TIA. Psychiatric: The patient denies psychiatric medications, denies depression, and denies voices, denies substance abuse. Endocrine: The patient denies thyroid disorders, denies diabetes, and denies hormonal problems. Hematologic: The patient denies a history of bruising, denies bleeding, and denies anemia, denies blood clots. Infections: The patient denies a history of measles and mumps, denies rheumatic fever, and denies sexually transmitted diseases. Musculoskeletal: The patient denies back pain/injury, denies back problems, denies sciatica, denies knee/foot trouble, denies arthritis, or denies gout. When was patient's last Mammogram screening? 2020 Last Colonoscopy: 09/16/2013 Ekta Coto documented in this encounter [facility] 02-27-2022 History of Present illness Narrative Call placed to Kate who is POD# 1 s/p TVT sling surgery. She is doing really well. Voiding without difficulty, feels she is emptying completely with voids. Slightly bloated, but belly is soft and she is passing gas. Taking Colace as prescribed and ambulating frequently. Pain is very minimal, taking medications which are adequate. PLAN: -continue postop management, reviewed today -FU for postop check, sooner prn Pt appreciative of the call. Erinn Barton APRN.CNP documented in this encounter [facility] 02-23-2022 History of Present illness Narrative [facility] CHAIR LIFT OPERATOR & I IRB#: [id number] Study name: Restrictive Opioid Prescribing after Surgery for Prolapse and Incontinence: A Randomized Controlled Trial PI: Dr. Dena Khanna Inclusion and exclusion criteria reviewed and confirmed by Leslie Guzman M.D. Discussed study protocol and potential risks/benefits, treatment alternatives, data confidentiality measures, participant compensation, and follow up with patient/family. The patient has read the informed consent and verbalized her understanding. All questions were answered. The patient states understanding and has agreed to participate. The informed consent was signed. A copy of the informed consent was given to the patient. After obtaining informed consent, the patient was administered the Pain Catastrophizing Scale. Based off her score of 20, she continues to meets eligibility criteria for trial participation . Preoperative Questionnaire and Modified Pain Scale were also completed. The patient indicated that she would prefer to complete post-op surveys via paper--hard copies were provided and would prefer to receive survey reminders via text message and e-mail communication. Samira Son RN Research Nurse February 23, 2022 1:53 PM documented in this encounter [facility] 02-23-2022 History of Present illness Narrative Kate presents for her preoperative visit today. She is scheduled for the following on 02/26/22: TVT Sling Cystoscopy Urodynamics reviewed: UROFLOWMETRY Voided vol: 773 ml. Flow time: 1:10.0 sec. Q max: 25 ml/sec. Q av ml/sec. PVR: 10 ml. CYSTOMETROGRAM Subtracted:Yes Video: No EMG: Yes First Sensation: No cool, filling, or pressure felt ml Strong desire: 76 ml Max. capacity: 352 ml Maximum filling detrusor pressure 2 cm of water Detrusor overactivity associated with urge: No Detrusor overactivity associated with leakage: no Was patient assessed for VLPP / UPP Yes Leaks urine with valsalva /coughs: Yes Lowest Leak point pressure: 72 cm of water at 250 ml- patient clenching with stress, not accurate pressure readings but patient did have leak. PRESSURE-FLOW VOIDING STUDY Did patient void with catheters in place Yes Voided: 134 ml voluntary Max Voiding Detrusor Pressure 15 cm H2O P det Q max (Max Flow): 10 cm H2O Maximum Flow Rate: 9 ml/sec Average Flow Rate: 3 ml/sec We reviewed the alternatives to surgery before discussing the risks associated with surgery. We discussed the risks and benefits of each of the surgical procedures in detail. These risks include, but are not limited to, bleeding, transfusion, infection, injury to surrounding organs, development of postoperative stress or urge urinary incontinence, development of postoperative voiding dysfunction with need for prolonged bladder catheterization or self-catheterization, vaginally placed mesh complications, failure of the prolapse and/or continence surgery over time, and need for additional surgery. All questions answered and informed consent was obtained. Perioperative considerations: - Will accept blood products - DOS - , Mauro - STOP PAIN Dena Khanna MD, MPH documented in this encounter [facility] 02-23-2022 Nurse Note [facility] UR[facility] LAB URODYNAMIC PROCEDURE NOTE ID Verified by: Dena Bhardwaj RN with name and birthdate. Procedure instructions reviewed with patient prior to procedure: Yes Currently experiencing pain: No 0 on a scale of 0 to 10 on a scale of 0-10. Does the patient have any concerns about safety in the home/falls?: Not at risk for falls Has the patient had 2 falls in the last year or 1 fall with injury or currently using assistive device (walker, cane, wheelchair, crutches): No What interventions were put in place to prevent falls during this visit: Offered assistance with transfers/clothing Has patient had any history of Mitral Valve prolapse: No MEDS:NONE Has patient had any history of prosthetics: No MEDS: NONE Latex allergy: noIodine allergy: No Females- Is patient : No B/O UA: YES DIP: Negative for leukocytes and negative for nitrates. UROFLOWMETRY Voided vol: 773 ml. Flow time: 1:10.0 sec. Q max: 25 ml/sec. Q av ml/sec. PVR: 10 ml. CYSTOMETROGRAM Subtracted:Yes Video: No EMG: Yes First Sensation: No cool, filling, or pressure felt ml Strong desire: 76 ml Max. capacity: 352 ml Maximum filling detrusor pressure 2 cm of water Detrusor overactivity associated with urge: No Detrusor overactivity associated with leakage: no Was patient assessed for VLPP / UPP Yes Leaks urine with valsalva /coughs: Yes Lowest Leak point pressure: 72 cm of water at 250 ml- patient clenching with stress, not accurate pressure readings but patient did have leak. PRESSURE-FLOW VOIDING STUDY Did patient void with catheters in place Yes Voided: 134 ml voluntary Max Voiding Detrusor Pressure 15 cm H2O P det Q max (Max Flow): 10 cm H2O Maximum Flow Rate: 9 ml/sec Average Flow Rate: 3 ml/sec Comments: md to follow up with patient. pabd placed in vagina d/t poor reading in rectum. Filled to capacity, stressed with leak produced. Permit to void given,pves removed to aid void. Patient abdominally pushing to void. Voluntary void. STUDY DETAILS: Was a uroflow done at some point during the study: Yes Was a cystometrogram performed: Yes Was a UPP/VLPP done: Yes Was an EMG done: Yes Was an intraabdominal pressure recorded with urethral catheter in: Yes Where were pressure catheters placed: Bladder and Rectum Was contrast instilled for radiologic evaluation: No Please use Urodynamic Graph. Pt given verbal home going instructions. Pt states an understanding of instructions given. Dena Bhardwaj RN documented in this encounter [facility] 02-14-2022 History of Present illness Narrative DATE OF SERVICE: 02/14/2022 PROBLEM: Kate Reed presents for pre-op teaching. PRE-OP DIAGNOSIS: TOM SCHEDULED SURGERY AND DATE: 02/26/2022;SLING SURGERY FOR STRESS INCONTINENCE W/ TENSION FREE VAG TAPE and CYSTOSCOPY and POSTERIOR COLPORRHAPHY W/ REPAIR RECTOCELE AND PERINEORRHAPHY PRIMARY SURGEON: Dena Khanna MD NURSING PREOP ASSESSMENT: Fevers, chills, cough, or nasal congestion: No Vaginal itching, burning, discharge, or odor: No Pain with urination, frequency, urgency, cloudy or foul smelling urine: No If yes to any of the above then MD notified: Not Applicable ADVANCED CARE PLANNING: Does the patient have an advanced directive: No Does [facility] have a copy of the patient's advanced directive: No Was advanced directive given to the patient: No PATIENT LEARNING ASSESSMENT: Individual patient/family learning needs evaluated and addressed: Yes Cognitive ability: Alert and oriented Motivation to learn: Eager Interested Factors affecting learning: None Physical limitations affecting learning: None Patient learns best by: Individual Instruction Method of instruction: Individual instruction Instructions provided to: Patient via telephone. Written material provided prior to education appointment. Family support: High - Very involved in pt care PRE- AND POST-OPERATIVE TEACHING Pre-operative teaching and supplemental material provided and reviewed with patient: Your Surgical Guide Book Map Written pre-op and post-op instructions Antibacterial soap: patient declined, will use own Pre-operative instructions provided and reviewed with patient/family: No eating, drinking, or smoking after midnight prior to surgery unless otherwise directed No alcohol the day before surgery Medications as prescribed by anesthesia, internal medicine, surgeon, or VISCOSITY WORKER Stop NSAIDs, Aspirin (ASA), vitamins, herbal supplements, herbal teas, and diet pills 7-10 days prior to surgery OK to take tylenol prn pain unless otherwise directed by physician Call surgery coordinators if any other questions about surgery date or pre-op appointments Bowel prep instructions: NPO after midnight Day of surgery instructions provided and reviewed with patient/family: Arrival time (call surgical coordinators on the office day prior to surgery for verification) No jewelry, body piercing, makeup, contacts, lotions, nail mongolian on fingers, or anything in hair on arrival to surgery Wear low healed shoes and loose fitting clothing Leave all valuables at home or with a family member Directions to [facility] and [facility] Parking/parking validation on the day prior to surgery Admission/check in (desk P-20 or J1-1) Holding area Placement of IV Surgical positioning Family waiting area Surgical recovery room Post-operative instructions provided and reviewed with patient/family: SEE PATIENT INSTRUCTION SECTION FOR DETAILS. SYMPTOMS TO NOTIFY MD - Fever, chills, nausea, vomiting, increased or severe pain, heavy vaginal bleeding, foul smelling vaginal drainage, pain or swelling in extremities. URGENT SYMPTOMS - Call 911 or go to ER if any shortness of breath, difficulty breathing, or chest pain. HOW TO CONTACT PHYSICIAN - Physician's office phone number given to patient, if after hours patient instructed to call concentrator operator and ask for surveillance system monitor ocean export coordinator onc resident. CHOCO program offered to patient: Yes Additional teaching as indicated by patient/family learning needs. PATIENT LEARNING EVALUATION & FOLLOW UP PLAN: Patient and/or family express understanding of upcoming surgery, pre-operative preparation, the operative process, and post-operative instructions. Follow up plan: Patient instructed to call with any further issues Patient has a post-op appointment scheduled: Yes; 04/06/2022 with Erinn Barton Referral (recommentation): None Educator: Aylin Clayton LPN [facility] documented in this encounter [facility] 02-13-2022 Instructions Aylin Clayton LPN - 02/13/2022 1:57 PM EDT PRE-OPERATIVE CHECKLIST: PATIENT INSTRUCTIONS PRIOR TO SURGERY Our guidelines have changed, so please read these instructions carefully. Your surgery may be cancelled if you do not follow these instructions. MY ARRIVAL TIME IS: I have been instructed not to have any solid food to eat after midnight prior to my surgery (this includes no gum, mints, smoking). I am allowed to drink small amounts (up to 12 oz) of clear liquids up until 2 hours prior to my arrival time. Clear liquids include water, fruit juices without pulp, carbonated beverages (i.e. chelsy tahira), electrolyte beverages (i.e. Gatorade), clear tea and black coffee, clear broth, popsicles and jello. (No milk). No alcohol the day before or day of surgery. I will bring this binder to all pre and post-operative appointments AND day of surgery. MEDICATION STOPPAGE: Unless my surgeon tells me differently, I will STOP THESE MEDICATIONS 7 DAYS PRIOR TO SURGERY: (Motrin/ibuprofen/Naproxen/Aleve/Advil ), Aspirin, vitamin E, herbal medications, diet pills, and bkwz-cro-fxwoylr medications. Tylenol (acetaminophen) is okay. I will not wear jewelry, body piercing(s), makeup, nail mongolian, hairpins, or contacts on the day of surgery. I am to leave valuables and money at home or with family members. If I am prescribed inhalers for breathing, I will use them and bring them to the hospital. Medication(s) to be taken on the morning of surgery with a few sips of water: If I am taking any of the following blood thinning medications Aspirin, clopidogrel (Plavix), ticagrelor (Brilinta), prasugrel (Efficient), ticlodipine (Ticlid), warfarin (Coumadin), dibigatran (Pradaxa) or rivaroxaban (Xarelto) - I will discuss whether or not I should stop them before surgery with my surgeon. Discuss medication changes with your consulting systems engineer or primary care physician as well. If I stopped taking my blood-thinning medication, I will ask the surgeon when to resume taking it. If I am an outpatient, a responsible person will drive me home and it was suggested that someone stay with me for 24 hours. I understand that a business associate or cabdriver is NOT a responsible caregiver. Patients with diabetes, I will not take my morning diabetes medication (pills) on the morning of surgery. If I am on insulin, someone has gone over those instructions with me for the morning of surgery. I understand if my surgery is delayed, I will notify the check in desk that I have diabetes. See the Diabetic Guidelines Before Surgery in the patient education section. If I have Obstructive Sleep Apnea and use a CPAP/BiPAP machine, I will bring my mask, tubing, and machine with me on the day of surgery. Pain management education material found in Your Surgical Guide was reviewed with me. To find out my arrival time for surgery, I must call my assistant professor surgical technology after 2pm the day before surgery. Pre-operative instructions given by: PREOP INSTRUCTIONS THE DAY OF SURGERY/CHECK IN - Report to DESK P20 located in the surgery center (unless otherwise instructed to go to J1-1). A map is located in Your Surgical Guide Book. - The online version of the surgical guide book can be found at: [email or web address] - The address of the surgical center is: [address] [id number] INFECTION PREVENTION - Please notify your doctor if you have any signs of an infection (i.e. fever, severe cough, nasal congestion, pain with urination, abnormal vaginal discharge, diarrhea, etc). - Your surgeon will let you know if a bowel prep is needed before your surgery. If so, please see the attached instructions. - Shower the night before surgery AND the morning of surgery with Hibiclens (provided by your surgeon). If you are allergic to Hibiclens or unable to obtain the Hibiclens, please wash with antibacterial soap. Wash your body from the neck down, focusing on your abdomen, belly button and external genitalia. Do not forget to scrub any skin folds and creases. - No lotions, oils, creams, or powders after your shower. Underarm deodorant is okay. - No shaving (abdominal or pubic hair) or douching the day before surgery. - You may be asked to apply an antiseptic solution called Chlorhexidine Gluconate (CHG) which will be provided to you on arrival to the preop area. - Hand washing is extremely important in preventing infection (for both you as the patient and for the caregivers). HOSPITALIZATION - Before you leave the hospital, you typically need to be able to eat/drink, urinate, and have your pain controlled with oral medication. Your surgeon or other members of your surgeon s team will discuss any other specific medical issues related to your discharge with you. - Your surgeon may order intermittent compression sleeves. These are massaging leg pumps to help prevent blood clots after surgery. See Your Surgical Guide Book for more information. - It is also very important that you walk as soon as possible and as frequently as possible after surgery. This will help decrease your risk of blood clots, exercise your lungs and speed up your recovery after surgery. - If you are admitted to the hospital overnight, you will be given an incentive spirometer, which is a breathing machine that will help make sure that you are taking deep breaths and expanding your lungs while in the hospital. See Your Surgical Guide Book for more information. [facility] TEAM - At the [facility], we have a multidisciplinary team of caregivers that includes fellows, residents, nurse practitioners, physician assistants, clinical nurse specialists, nurses, medical assistants, patient care nursing assistants, social workers, case monitor and many others. We all have different roles and responsibilities but we are all here to help. UROGYNECOLOGY POSTOP INSTRUCTIONS ACTIVITY No heavy lifting/pushing/pulling for 4-6 weeks. Do not lift anything more than about 5-10 lbs (such as laundry, groceries, children, or pets), vacuum, push heavy doors or grocery carts, etc. You may climb stairs as tolerated. Do not put anything in the vagina for 6 weeks after surgery unless otherwise instructed by your doctor (including tampons, douching, sexual intercourse, etc). No driving while you are taking narcotic pain medication, or until you feel that you are ready and can safely slam the brakes if needed. Avoid sitting or lying in bed for more than 2 hours at a time while you are awake to reduce your risk of blood clots. You may return to work when directed by your physician. Please contact your doctor if you need any return to work letters or medical leave paperwork to be completed. PAIN MANAGEMENT After you go home, you should take the prescribed acetaminophen (Tylenol) and ibuprofen (Motrin) as directed. We recommend rotating the timing of these medications so that you are taking one of these medications every 3 to [address], you can help prevent pain. After the first 72 hours, you can take these medications as needed. These should be the first medications you use for pain. Heat or ice may also help. Some pain medications can cause constipation so you should take a stool softener (i.e. colace) while you are on these medications (see the following section on constipation). You may have been prescribed an opioid medication, also known as a narcotic pill. This is usually oxycodone. You may be familiar with the medication Percocet, which is a combination of oxycodone and acetaminophen. These opiate medications have side effects like nausea or vomiting, constipation, and sleepiness. You should only take them if your pain is not controlled by ibuprofen and/or acetaminophen. It is important to keep this stronger pain medication safely stored, as it is at great risk of being stolen or misused by family, friends, or even strangers. Please be sure to dispose of leftover pain medication after you have recovered. You may dispose of unused narcotic medications in the trash with an unpleasant substance such as coffee grounds or cat litter. You can also check FDA.gov to assess which medications can be safely flushed down the toilet. There are locations to dispose of unused medications at three [facility] locations: [facility] pharmacy, [facility] pharmacy, and the Pharmacy at the [facility] for [facility] (inside the parking garage on the first floor). CONSTIPATION You may not have a bowel movement for 3-5 days after surgery. This is normal. To help prevent constipation after your surgery, you may receive prescriptions to take including the following: Colace (docusate sodium) 100 mg (1 capsule) two times a day Miralax (polyethylene glycol) 17 g (1 measured capful or 1 packet) once a day. If you have not had a bowel movement 3 days after surgery, you may take the Miralax two times a day. If you have any discomfort because of the need to have a bowel movement, you may add milk of magnesia or magnesium citrate (available at your local pharmacy without a prescription) at any time. Do not take milk of magnesia or magnesium citrate if you have kidney failure. If you have loose or watery stools, stop taking the medications and call your doctor s office. OTHER MEDICATIONS If you were prescribed vaginal estrogen, you should resume it in 7-10 days after surgery unless you were instructed otherwise. Please check your discharge instructions about when to resume other medications. WOUND CARE If you have brittany (abdominal incision), they need to be removed about 10-14 days after surgery. If you have sutures, they do not need to be removed. Keep any incision clean, dry, and open to the air. Shower daily after surgery. No tub baths until wound is completely healed. If you have any abdominal incisions, wash them daily with a mild antibacterial soap and water. Pat your incision dry with a clean towel. Wash your hands frequently, especially before touching your incision, changing any dressings, after using the restroom, and before eating. [facility] CATHE[facility] You may go home with a [facility] catheter in your bladder. You will need to follow up for a nurse visit within 3-10 days for removal. You will be called by the office to get this appointment if it is not listed below. It is important to empty your catheter bag before it gets too full. Keep the catheter tubing free of kinks and [place] bag below the level of your bladder. Keep your genital region and catheter tubing clean. WHAT TO EXPECT AT HOME Recovery from surgery is generally 4 weeks, but sometimes longer for more strenuous activity. It is normal to be very tired during this time. It is normal to have some drainage or a small amount of vaginal bleeding after surgery which may last up to 6 weeks. If you had a laparoscopic surgery, you may experience gas pain, abdominal swelling, or shoulder pain for 24-72 hours after surgery. A warm shower, heating pad, and/or walking may help. WHEN TO CALL YOUR DOCTOR: If you cannot urinate for 3-5 hours or are only able to urinate small amounts. Fever (>100.4 F or 38.0 C) or chills. Incision problems such as redness, warmth, swelling, or foul smelling drainage. Severe nausea or persistent vomiting. Bright red vaginal bleeding (soaking >1 pad/hour) Foul smelling vaginal drainage (note that some vaginal discharge is normal) Severe pain not relieved with pain medication. Pain and swelling in your legs, especially if it is only on one side and not the other. Pain with urination, cloudy urine, or foul smelling urine. Or if you have any other problems or questions. CALL 911 OR GO TO THE EMERGENCY ROOM IF YOU HAVE: shortness of breath, difficulty breathing, or chest pain. UROGYNECOLOGY PHYSICIAN CONTACT INFORMATION During business hours, these numbers connect to your doctor s office. During the evening and weekends, these numbers will connect you to the answering service to speak with the doctor surveillance system monitor. Dr. Raymundo Dr. Khanna ([facility]) Dr. Sanchez Dr. Barksdale Dr. Torre Dr. Flores Dr. Blake Dr. Smith Letty Andrews, INDUCTION COORDINATION ENGINEER Valentina Spear, INDUCTION COORDINATION ENGINEER Erinn Mick, INDUCTION COORDINATION ENGINEER After 4:30 pm or on holidays or weekends, call: or . Ask the concentrator operator to page the DOUBLE ENDING MACHINE OPERATOR surveillance system monitor.' Please DO NOT use MyChart for post-surgery concerns. documented in this encounter [facility] 02-12-2022 Instructions Sita Eugene PA-C - 02/12/2022 1:39 PM EDT PATIENT PREOPERATIVE INSTRUCTIONS Dena Khanna MD has scheduled you for your procedure at this surgery center: [facility] [place] Scheduling Office: [phone] --If no call by 4pm the Saturday before surgery, please call this number. [address] [place] [address]. Please read below carefully for your personalized instructions. Dietary Restrictions: - No solid food after midnight. - You may have 12 ounces of clear liquids (water, clear juices such as apple juice or gatorade, carbonated beverages, clear tea, black coffee, jello) until 2 hours before scheduled arrival at facility. Medications: Unless instructed differently below, stay on all of your medications until your surgery. Approved medications to take the morning of surgery with a sip of water: Topiramate (Topamax) and Citalopram (Celexa) If you start any new medications after today's visit, please contact the surgeon's office. Blood Thinning Medications: - Stop NSAIDS (Ibuprofen, Advil, Aleve, Motrin, Celebrex, Mobic, etc.) 7 days before surgery, as directed by your surgeon. - Stop Aspirin 7 days before surgery, as directed by your surgeon. - Stop Vitamin E, ALL multi-vitamins, herbals and dietary supplements 7 days before surgery. - You may take Tylenol (Acetaminophen) or any of your pain medications that do not contain aspirin or NSAIDS as needed. Important Reminders: - Candy, mints, and tobacco products are NOT permitted the morning of surgery. - Hearing aids, dentures and glasses may be worn the morning of surgery. - NO jewelry, body piercings, makeup, hairpins or contacts are to be worn the day of surgery. If you develop symptoms such as a fever, cold, or flu, or have other changes to your health within TWO DAYS of scheduled surgery or the morning of surgery, please contact the surgery center above. Personal Belongings: -Please have photo ID and insurance cards. -If you do not have a copy of advance directives on file with us, please bring a copy with you on the day of surgery. - Leave ALL valuables and money at home or with family members. For Outpatient Procedures: - YOU MUST HAVE A RESPONSIBLE SWITCH OPERATORS SUPERVISOR TAKE YOU HOME. A PLATING TECHNICIAN OR SUPERVISOR DENTAL LABORATORY CANNOT BE MADE A RESPONSIBLE SWITCH OPERATORS SUPERVISOR. - We recommend that a responsible person stays with you overnight to take care of you. - You cannot stay in a hotel alone after outpatient surgery. You will not be permitted to have your surgery, if you do not have someone to take care of you. Arrival Time for Surgery: - To obtain your arrival time for surgery, call your physician's office the day before your surgery. - If your surgery is scheduled for Saturday, call the Saturday before. Your surgeon s chief of service will tell you what time to call the office. - If you have not reached the departmental chief of service by 5 P.M., call [phone] after 5 P.M. the day before your surgery. Please be aware that emergency situations arise, which may delay or change your surgical time. If this happens, we will notify you as soon as possible and regret any inconvenience. If you already have an Advance Directive, please fax a copy to [phone] or email to for it to be added to your chart. If you do not have an Advance Directive, you can find the appropriate form and more information at [email or web address]. We recommend that you complete the Advance Directive form found on the website and bring it with you the day of your surgery. It can be witnessed and scanned into your chart that day. Sita Eugene PA-C documented in this encounter [facility] 02-12-2022 History and physical note PREANESTHESIA CONSULT CLINIC TELEHEALTH VISIT Patient has been identified by name and date of : Yes This is a virtual visit using [employer] video visit. It require patient-provider interaction for the medical decision making as documented below. Reason for contact: [facility] visit Accompanied by: Self Scheduled Surgery: SLING SURGERY FOR STRESS INCONTINENCE W/ TENSION FREE VAG TAPE, CYSTOSCOPY, POSTERIOR COLPORRHAPHY WITH RECTOCELE REPAIR Subjective CHIEF COMPLAINT: TOM HPI: This is a 46 year old female who presents for preop evaluation. Patient has been having stress urinary incontinence. She also complains of incomplete bladder emptying and difficulty with BMs. She denies dysuria and hematuria. Denies fever, chills, chest pain and SOB. ACTIVE PROBLEM LIST Endometriosis, Site Unspecified Gerd (Gastroesophageal Reflux Disease) Anxiety PAST MEDICAL HISTORY Diagnosis Date Anxiety 11/24/2020 Biliary dyskinesia 10/30/2013 Chronic cholecystitis without calculus 12/03/2013 Endometriosis, site unspecified Endometriosis Irregular menstrual cycle Irregular periods IRREGULAR MENSTRUATION Mild dysplasia of cervix (FREDO I) Mixed incontinence PAST SURGICAL HISTORY Procedure Laterality Date DELIVERY ONLY , low transverse, x 1 COLONOSCOPY FLX DX W/COLLJ SPEC WHEN PFRMD 09/16/2013 Colonoscopy COLPO OF CERVIX INC UPPER VAG 11/2005 ESOPHAGOGASTRODUODENOSCOPY TRANSORAL DIAGNOSTIC 09/16/2013 EGD LAPS ABD PRTM&OMENTUM DX W/WO SPEC BR/WA SPX Laparoscopy LASER ABLATION OF ENDOMETRIOSIS LAPS SURG CHOLECYSTECTOMY W/CHOLANGIOGRAPHY 11-24-13 PAST SURGICAL HISTORY OF 2000 hemorrhoidectomy, anal fissure FAMILY HISTORY Problem Relation Age of Onset other (Fibro-Myalgia) Mother other (Hypoglycemia) Mother Hypertension Maternal Grandmother Heart Paternal Grandfather Stroke Paternal Grandmother Cancer Paternal Aunt OVARIAN Coronary Artery Disease Paternal Uncle Anesthesia Problems No Family History Social History Tobacco Use Smoking status: Never Smoker Smokeless tobacco: Never Used Substance Use Topics Alcohol use: Yes Comment: OCCASIONALLY, once per week Drug use: No ALLERGIES Allergen Reactions Erythromycin GI Upset Honey Swelling MEDICATIONS: Current Outpatient Medications Medication Sig citalopram (CELEXA) 40 mg tablet Take by mouth once daily. rizatriptan (MAXALT) 5 mg tablet Take 1 tablet by mouth as needed. May repeat in 2 hours if needed topiramate (TOPAMAX) 25 mg tablet start at 25 mgs once a day for 7 days and then increase to 25 mgs 2 times a day. valACYclovir (VALTREX) 500 mg tablet At earliest onset of symptoms take 2 gms , 2 times a day for 1 day peg 3350-Electrolytes (GOLYTELY) 236-22.74-6.74 -5.86 gram suspension Refer to printed prep instructions from your provider. (Patient not taking: Reported on 02/12/2022 ) No current facility-administered medications for this visit. COVID VACCINATION STATUS: Fully vaccinated REVIEW OF SYSTEMS: Pain Assessment: General: No weight loss, malaise or fevers. Neuro: Negative for TIA's Seizures Stroke-residual deficit Impaired Sensorium +migraines on Topamax and Maxalt PRN Respiratory: No history of current cough or dyspnea, or pneumonia in the past 6 weeks. No history of respiratory/pulmonary symptoms or problems. Cardiovascular: No history of HTN requiring medication, no history of angina, CHF, NM, cardiac surgery or stents. Denies rest pain, gangrene or revascularization/amputation for PVD. No history of cardiovascular symptoms or problems. GI: No history of GI symptoms or problems. No history of esophageal varices, recent ascites, or ETOH greater than 2 drinks per day. 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 : Denies, Patient's last menstrual period was 02/08/2022. Endocrine: No history of diabetes. Has not taken steroids within the past 30 days. No history of endocrinological symptoms or problems. Hematology: No history of bleeding or clotting disorder. Pt is not taking anti-coagulation or platelet medications. No history of hematological symptoms or problems. Oncology: No history of CA metastasis, chemo within 30 days, or radiotherapy within 90 days. Has not lost 10% of body wt in 6 months. No history of oncological symptoms or problems. Psych: No history of psychiatric symptoms or problems. Musculoskeletal: Negative for joint pain or swelling, back pain or muscle pain. Skin: Negative for lesions, rash and itching. Objective PHYSICAL EXAM: Ht 5' 6 (1.68m) Wt 167 lb (75.8kg) LMP 02/08/2022 BMI 26.97 kg/(m^2). VIDEO EXAM: (if completed, performed via video enabled technology) GENERAL: alert and appropriate, in no distress, well-hydrated, well nourished and happy, smiling, interactive SKIN: no rash noted HEAD: normocephalic, no abnormality or lesion noted EYES: no injection OROPHARYNX: moist mucus membranes NECK: full ROM, no cervical LNs noted RESPIRATORY: breathing non-labored CHEST: equal chest rise with normal respiratory effort HEART: Well perfused, no cyanosis noted NEUROLOGIC: no obvious deficit Diagnostic tests reviewed for today's visit: Lab Value Units Date High Low HB 12.9 g/dL 01/22/2022 15.5 11.5 HCT 39.3 % 01/22/2022 46.0 36.0 WBC 4.87 k/uL 01/22/2022 11.00 3.70 PLT 310 k/uL 01/22/2022 400 150 NA 137 mmol/L 02/05/2022 144 136 K 3.5 mmol/L 02/05/2022 5.1 3.7 GLUC 90 mg/dL 02/05/2022 99 74 BUN 7 mg/dL 02/05/2022 21 7 CREAT 0.66 mg/dL 02/05/2022 0.96 0.58 PTSEC No results within date range. INR No results within date range. APTT No results within date range. ALT 25 U/L 01/22/2022 38 7 AST 32 U/L 01/22/2022 35 13 TBILI 0.3 mg/dL 01/22/2022 1.3 0.2 TSH 2.390 mIU/L 02/05/2022 4.200 0.270 Lab Value Units Date High Low HCGQT No results within date range. UHCG No results within date range. HCG, BODY* No results within date range. Lab Value Units Date High Low ABORHD No results within date range. ABSCREEN No results within date range. No results found for: HBA1C Most recent labs in epic reviewed Impression/Recommendations ASSESSMENT: Assessment: There is no known pertinent medical condition which may affect bebo-operative course METS: Climb a flight of stairs or walk up a hill (5.50 METs) Patient denies any chest pain or undue shortness of breath with the above physical activity. ASA Class: 2 ANESTHESIA FINDINGS: Intubation History: No history of difficult intubation Significant Anesthesia Considerations: Postop nausea/vomiting Airway Exam: General: Normal appearance Mallampati Score is CLASS I ULBT: Class I - Lower incisors can bite the upper lip above the greg line Neck: Normal appearance and function, Distance from hyoid to mentum during neck extension is at least 3 finger breaths Mouth: Normal tongue size and Mouth opening greater than 2 finger breaths Dentition: Intact Airway History: No abnormal airway history STOP BANG Score: Criteria: Snoring Score = 1 PLAN: This patient is optimally prepared for surgery. CONSULTS: Patient does not require consults for optimization at this time. The Following Tests/Procedures Have Been Initiated: Labs not indicated per [facility] protocol, EKG not indicated per [facility] protocol Planned Anesthetic: Per anesthesia choice Instructions Given to Patient: Patient given verbal instructions and voices comprehension and compliance. Copy sent electronically via My Chart, email, or mobile device. I spent more than 0-20 minutes [id number] with the patient and over half the time was devoted to counseling and/or coordination of care. This is a virtual visit. It required patient-provider interaction for the medical decision making as documented above. SIGNATURE: Sita Eugene PA-C PATIENT NAME: Kate Reed DATE: 02/12/22 TIME: 1:37 PM PAGER/CONTACT #: documented in this encounter [facility] 11-24-2020 History of Present illness Narrative Radiology Service Progress Note PATIENT NAME: Kate Reed DATE OF SERVICE: November 24, 2020 TIME: 3:16 PM PATIENT IDENTITY VERIFICATION COMPLETED USING TWO (2) IDENTIFIERS: Name and Date of confirmed by patient verbally. FALL SCREENING: Has the patient had 2 falls in the last year or 1 fall with injury or currently using an Ambulatory Assistive Device (Walker, Cane, Wheelchair, Crutches, etc.)? No PATIENT GENDER DATA: Female. status: : No status: NO. PATIENT RELEVANT IMPLANT DATA REVIEWED: Yes RADIOLOGY DEPARTMENT: General X-ray: Exam(s) Completed: Upper Extremity X-Ray(s): Wrist, bilateral : PERIPHERAL IV DATA: Not applicable SIGNED BY: RT Kelsey November 24, 2020 3:16 PM documented in this encounter [facility] 12-03-2013 History of Past i llness Narrative Problem Noted Date Resolved Date Chronic cholecystitis without calculus 4 11/24/2020 Biliary dyskinesia 10/30/2013 11/24/2020 Abdominal pain 09/07/2013 11/24/2020 Altered bowel function 09/07/2013 Irregular menstrual cycle 2011 Overview: Irregular periods documented as of this encounter (statuses as of 02/12/2022) [facility] History of Past illness Narrative* Problem Noted Date Resolved Date Chronic cholecystitis without calculus 4 11/24/2020 Biliary dyskinesia 10/30/2013 11/24/2020 Abdominal pain 09/07/2013 11/24/2020 Altered bowel function 09/07/2013 Irregular menstrual cycle 2011 Overview: Irregular periods documented as of this encounter (statuses as of 02/14/2022) [facility] History of Past illness Narrative* Problem Noted Date Resolved Date Chronic cholecystitis without calculus 4 11/24/2020 Biliary dyskinesia 10/30/2013 11/24/2020 Abdominal pain 09/07/2013 11/24/2020 Altered bowel function 09/07/2013 Irregular menstrual cycle 2011 Overview: Irregular periods documented as of this encounter (statuses as of 02/20/2022) [facility] of Past illness Narrative* Problem Noted Date Resolved Date Chronic cholecystitis without calculus 4 11/24/2020 Biliary dyskinesia 10/30/2013 11/24/2020 Abdominal pain 09/07/2013 11/24/2020 Altered bowel function 09/07/2013 1 Irregular menstrual cycle 2011 Overview: Irregular periods documented as of this encounter (statuses as of 02/23/2022) [facility] Past [facility] Narrative* Problem Noted Date Resolved Date Chronic cholecystitis without calculus 4 11/24/2020 Biliary dyskinesia 10/30/2013 11/24/2020 Abdominal pain 09/07/2013 11/24/2020 Altered bowel function 09/07/2013 1 Irregular menstrual cycle 2011 Overview: Irregular periods documented as of this encounter (statuses as of 02/23/2022) [facility] History of Past illness Narrative* Problem Noted Date Resolved Date Chronic cholecystitis without calculus 4 11/24/2020 Biliary dyskinesia 10/30/2013 11/24/2020 Abdominal pain 09/07/2013 11/24/2020 Altered bowel function 09/07/2013 1 Irregular menstrual cycle 2011 Overview: Irregular periods documented as of this encounter (statuses as of 02/23/2022) [facility] Past [facility] Narrative* Problem Noted Date Resolved Date Chronic cholecystitis without calculus 4 11/24/2020 Biliary dyskinesia 10/30/2013 11/24/2020 Abdominal pain 09/07/2013 11/24/2020 Altered bowel function 09/07/2013 1 Irregular menstrual cycle 2011 Overview: Irregular periods documented as of this encounter (statuses as of 02/27/2022) [facility] Narrative* Problem Noted Date Resolved Date Chronic cholecystitis without calculus 4 11/24/2020 Biliary dyskinesia 10/30/2013 11/24/2020 Abdominal pain 09/07/2013 11/24/2020 Altered bowel function 09/07/2013 1 Irregular menstrual cycle 2011 Overview: Irregular periods documented as of this encounter (statuses as of 03/27/2022) [facility] Narrative* Problem Noted Date Resolved Date Chronic cholecystitis without calculus 4 11/24/2020 Biliary dyskinesia 10/30/2013 11/24/2020 Abdominal pain 09/07/2013 11/24/2020 Altered bowel function 09/07/2013 1 Irregular menstrual cycle 2011 Overview: Irregular periods documented as of this encounter (statuses as of 03/30/2022) [facility] Past [facility] Narrative* Problem Noted Date Resolved Date Chronic cholecystitis without calculus 4 11/24/2020 Biliary dyskinesia 10/30/2013 11/24/2020 Abdominal pain 09/07/2013 11/24/2020 Altered bowel function 09/07/2013 1 Irregular menstrual cycle 2011 Overview: Irregular periods documented as of this encounter (statuses as of 04/05/2022) [facility] of Past [facility] Narrative* Problem Noted Date Resolved Date Chronic cholecystitis without calculus 4 11/24/2020 Biliary dyskinesia 10/30/2013 11/24/2020 Abdominal pain 09/07/2013 11/24/2020 Altered bowel function 09/07/2013 1 Irregular menstrual cycle 2011 Overview: Irregular periods documented as of this encounter (statuses as of 04/06/2022) [facility] History of Past [facility] Narrative* Problem Noted Date Resolved Date Chronic cholecystitis without calculus 4 11/24/2020 Biliary dyskinesia 10/30/2013 11/24/2020 Abdominal pain 09/07/2013 11/24/2020 Altered bowel function 09/07/2013 1 Irregular menstrual cycle 2011 Overview: Irregular periods documented as of this encounter (statuses as of 04/18/2022) [facility] Past [facility] Narrative* Problem Noted Date Resolved Date Chronic cholecystitis without calculus 4 11/24/2020 Biliary dyskinesia 10/30/2013 11/24/2020 Abdominal pain 09/07/2013 11/24/2020 Altered bowel function 09/07/2013 Irregular menstrual cycle 2011 Overview: Irregular periods documented as of this encounter (statuses as of 04/20/2022) [facility] Narrative* Problem Noted Date Resolved Date Chronic cholecystitis without calculus 4 11/24/2020 Biliary dyskinesia 10/30/2013 11/24/2020 Abdominal pain 09/07/2013 11/24/2020 Altered bowel function 09/07/2013 Irregular menstrual cycle 2011 Overview: Irregular periods documented as of this encounter (statuses as of 04/30/2022) [facility] Narrative* Problem Noted Date Resolved Date Chronic cholecystitis without calculus 4 11/24/2020 Biliary dyskinesia 10/30/2013 11/24/2020 Abdominal pain 09/07/2013 11/24/2020 Altered bowel function 09/07/2013 Irregular menstrual cycle 2011 Overview: Irregular periods documented as of this encounter (statuses as of 05/02/2022) [facility] N[facility]ative* Problem Noted Date Resolved Date Chronic cholecystitis without calculus 4 11/24/2020 Biliary dyskinesia 10/30/2013 11/24/2020 Abdominal pain 09/07/2013 11/24/2020 Altered bowel function 09/07/2013 Irregular menstrual cycle 2011 Overview: Irregular periods documented as of this encounter (statuses as of 05/02/2022) [facility] Narrative* Problem Noted Date Resolved Date Chronic cholecystitis without calculus 4 11/24/2020 Biliary dyskinesia 10/30/2013 11/24/2020 Abdominal pain 09/07/2013 11/24/2020 Altered bowel function 09/07/2013 Irregular menstrual cycle 2011 Overview: Irregular periods documented as of this encounter (statuses as of 05/07/2022) [facility] Narrative* Problem Noted Date Resolved Date Chronic cholecystitis without calculus 4 11/24/2020 Biliary dyskinesia 10/30/2013 11/24/2020 Abdominal pain 09/07/2013 11/24/2020 Altered bowel function 09/07/2013 Irregular menstrual cycle 2011 Overview: Irregular periods documented as of this encounter (statuses as of 05/07/2022) [facility] Narrative* Problem Noted Date Resolved Date Chronic cholecystitis without calculus 4 11/24/2020 Biliary dyskinesia 10/30/2013 11/24/2020 Abdominal pain 09/07/2013 11/24/2020 Altered bowel function 09/07/2013 Irregular menstrual cycle 2011 Overview: Irregular periods documented as of this encounter (statuses as of 05/28/2022) [facility] Narrative* Problem Noted Date Resolved Date Chronic cholecystitis without calculus 4 11/24/2020 Biliary dyskinesia 10/30/2013 11/24/2020 Abdominal pain 09/07/2013 11/24/2020 Altered bowel function 09/07/2013 Irregular menstrual cycle 2011 Overview: Irregular periods documented as of this encounter (statuses as of 06/12/2022) [facility] Past [facility] Narrative* Problem Noted Date Resolved Date Chronic cholecystitis without calculus 4 11/24/2020 Biliary dyskinesia 10/30/2013 11/24/2020 Abdominal pain 09/07/2013 11/24/2020 Altered bowel function 09/07/2013 Irregular menstrual cycle 2011 Overview: Irregular periods documented as of this encounter (statuses as of 07/06/2022) [facility] Narrative* Problem Noted Date Resolved Date Chronic cholecystitis without calculus 4 11/24/2020 Biliary dyskinesia 10/30/2013 11/24/2020 Abdominal pain 09/07/2013 11/24/2020 Altered bowel function 09/07/2013 Irregular menstrual cycle 2011 Overview: Irregular periods documented as of this encounter (statuses as of 07/30/2022) [facility] Narrative* Problem Noted Date Resolved Date Chronic cholecystitis without calculus 4 11/24/2020 Biliary dyskinesia 10/30/2013 11/24/2020 Abdominal pain 09/07/2013 11/24/2020 Altered bowel function 09/07/2013 Irregular menstrual cycle 2011 Overview: Irregular periods documented as of this encounter (statuses as of 08/02/2022) [facility]* Problem Noted Date Resolved Date Chronic cholecystitis without calculus 4 11/24/2020 Biliary dyskinesia 10/30/2013 11/24/2020 Abdominal pain 09/07/2013 11/24/2020 Altered bowel function 09/07/2013 Irregular menstrual cycle 2011 Overview: Irregular periods documented as of this encounter (statuses as of 08/03/2022) [facility]* Problem Noted Date Resolved Date Chronic cholecystitis without calculus 4 11/24/2020 Biliary dyskinesia 10/30/2013 11/24/2020 Abdominal pain 09/07/2013 11/24/2020 Altered bowel function 09/07/2013 1 Irregular menstrual cycle 2011 Overview: Irregular periods documented as of this encounter (statuses as of 09/10/2022) [facility]* Problem Noted Date Resolved Date Chronic cholecystitis without calculus 4 11/24/2020 Biliary dyskinesia 10/30/2013 11/24/2020 Abdominal pain 09/07/2013 11/24/2020 Altered bowel function 09/07/2013 1 Irregular menstrual cycle 2011 Overview: Irregular periods documented as of this encounter (statuses as of 09/21/2022) [facility] Narrative* Problem Noted Date Resolved Date Chronic cholecystitis without calculus 4 11/24/2020 Biliary dyskinesia 10/30/2013 11/24/2020 Abdominal pain 09/07/2013 11/24/2020 Altered bowel function 09/07/2013 1 Irregular menstrual cycle 2011 Overview: Irregular periods documented as of this encounter (statuses as of 09/21/2022) [facility] Narrative* Problem Noted Date Resolved Date Chronic cholecystitis without calculus 4 11/24/2020 Biliary dyskinesia 10/30/2013 11/24/2020 Abdominal pain 09/07/2013 11/24/2020 Altered bowel function 09/07/2013 1 Irregular menstrual cycle 2011 Overview: Irregular periods documented as of this encounter (statuses as of 10/01/2022) [facility] Narrative* Problem Noted Date Resolved Date Chronic cholecystitis without calculus 4 11/24/2020 Biliary dyskinesia 10/30/2013 11/24/2020 Abdominal pain 09/07/2013 11/24/2020 Altered bowel function 09/07/2013 1 Irregular menstrual cycle 2011 Overview: Irregular periods documented as of this encounter (statuses as of 10/16/2022) [facility] Narrative* Problem Noted Date Resolved Date Chronic cholecystitis without calculus 4 11/24/2020 Biliary dyskinesia 10/30/2013 11/24/2020 Abdominal pain 09/07/2013 11/24/2020 Altered bowel function 09/07/2013 1 Irregular menstrual cycle 2011 Overview: Irregular periods documented as of this encounter (statuses as of 10/22/2022) [facility]ative* Problem Noted Date Resolved Date Chronic cholecystitis without calculus 4 11/24/2020 Biliary dyskinesia 10/30/2013 11/24/2020 Abdominal pain 09/07/2013 11/24/2020 Altered bowel function 09/07/2013 1 Irregular menstrual cycle 2011 Overview: Irregular periods documented as of this encounter (statuses as of 11/21/2022) [facility] Narrative* Problem Noted Date Resolved Date Chronic cholecystitis without calculus 4 11/24/2020 Biliary dyskinesia 10/30/2013 11/24/2020 Abdominal pain 09/07/2013 11/24/2020 Altered bowel function 09/07/2013 1 Irregular menstrual cycle 2011 Overview: Irregular periods documented as of this encounter (statuses as of 12/07/2022) [facility] Narrative* Problem Noted Date Resolved Date Chronic cholecystitis without calculus 4 11/24/2020 Biliary dyskinesia 10/30/2013 11/24/2020 Abdominal pain 09/07/2013 11/24/2020 Altered bowel function 09/07/2013 1 Irregular menstrual cycle 2011 Overview: Irregular periods documented as of this encounter (statuses as of 02/18/2023) [facility]* Problem Noted Date Resolved Date Chronic cholecystitis without calculus 4 11/24/2020 Biliary dyskinesia 10/30/2013 11/24/2020 Abdominal pain 09/07/2013 11/24/2020 Altered bowel function 09/07/2013 1 Irregular menstrual cycle 2011 Overview: Irregular periods documented as of this encounter (statuses as of 05/02/2023) [facility]* Problem Noted Date Diagnosed Date Resolved Date Chronic cholecystitis without calculus 12/03/2013 11/24/2020 Biliary dyskinesia 10/30/2013 1 Abdominal pain 09/07/2013 11/24/2020 Altered bowel function 09/07/201311/24 Irregular menstrual cycle Overview: Irregular periods documented as of this encounter (statuses as of 05/30/2023) [facility]* Problem Noted Date Diagnosed Date Resolved Date Chronic cholecystitis without calculus 12/03/2013 11/24/2020 Biliary dyskinesia 10/30/2013 1 Abdominal pain 09/07/2013 11/24/2020 Altered bowel function 09/07/201311/24 Irregular menstrual cycle Overview: Irregular periods documented as of this encounter (statuses as of 08/12/2023) [facility]* Problem Noted Date Diagnosed Date Resolved Date Chronic cholecystitis without calculus 12/03/2013 11/24/2020 Biliary dyskinesia 10/30/2013 1 Abdominal pain 09/07/2013 11/24/2020 Altered bowel function 09/07/201311/24 Irregular menstrual cycle Overview: Irregular periods documented as of this encounter (statuses as of 09/22/2023) [facility]* Problem Noted Date Diagnosed Date Resolved Date Chronic cholecystitis without calculus 12/03/2013 11/24/2020 Biliary dyskinesia 10/30/2013 Abdominal pain 09/07/2013 11/24/2020 Altered bowel function 09/07/201311/24 Irregular menstrual cycle Overview: Irregular periods documented as of this encounter (statuses as of 09/22/2023) [facility] No data available for this section [facility] Evaluation + Plan note Future Appointments Appointment Date:05/04/2024 03:30:00 PM Scheduled Provider:ELAYNE MARINO MD Location:[facility] Appointment Type:[facility] Future Scheduled Tests Laboratory* Luteinizing Hormone 12/26/23 * Progesterone Level 12/26/23 * Thyroid Stimulating Hormone 12/26/23 * Follicle Stimulating Hormone Level 12/26/23 Radiology* MA Mammo Screening Bilateral w/ Kirill 06/17/23 * MA Mammo Screening Bilateral w/ Kirill 09/02/23 [facility] note* Diagnosis Preop examination- Primary Preoperative examination, unspecified TOM (stress urinary incontinence, female) Female stress incontinence TOM (stress urinary incontinence, female) Female stress incontinence Outlet dysfunction constipation documented [facility] this encounter [facility] note* Diagnosis Educational circumstances- Primary Educational circumstance TOM (stress urinary incontinence, female) Female stress incontinence Outlet dysfunction constipation documented in this encounter [facility] note* Diagnosis Stress incontinence- Primary Female stress incontinence TOM (stress urinary incontinence, female) Female stress incontinence Outlet dysfunction constipation documented in this encounter [facility] note* Diagnosis Preoperative examination Preoperative examination, unspecified TOM (stress urinary incontinence, female) Female stress incontinence Outlet dysfunction constipation [facility]* Diagnosis Postoperative state- Primary Other postprocedural status documented in this encounter [facility] note* Diagnosis Hemorrhoids, unspecified hemorrhoid type- Primary Screening for colon cancer Special screening for malignant neoplasms, colon documented in this encounter [facility] note* Diagnosis Hemorrhoids, unspecified hemorrhoid type- Primary Screening for colon cancer Special screening for malignant neoplasms, colon [facility] Diagnosis Dizziness- Primary Dizziness and giddiness Hx of migraines Personal history of other disorders of nervous system and sense organs Nausea Nausea alone [facility]* Diagnosis Urinary frequency- Primary documented in this encounter [facility] note* Diagnosis Vertigo- Primary Dizziness and giddiness Migraine without status migrainosus, not intractable, unspecified migraine type Menstrual migraine without status migrainosus, not intractable Menstrual migraine, without mention of intractable migraine without mention of status migrainosus Cervicalgia Spinal stenosis of cervical region Spinal stenosis in cervical region [facility]* Diagnosis Rash- Primary Rash and other nonspecific skin eruption documented in this encounter [facility] noteNo assessment information availableWThe [facility] Work Phone: [facility] note* Diagnosis Vertigo- Primary Dizziness and giddiness Menstrual migraine without status migrainosus, not intractable Menstrual migraine, without mention of intractable migraine without mention of status migrainosus [facility]* Diagnosis Vertigo- Primary Dizziness and giddiness documented [facility]* Diagnosis Menstrual migraine without status migrainosus, not intractable- Primary Menstrual migraine, without mention of intractable migraine without mention of status migrainosus Migrainous dizziness Dizziness and giddiness documented [facility]* Diagnosis Menstrual migraine without status migrainosus, not intractable- Primary Menstrual migraine, without mention of intractable migraine without mention of status migrainosus Migrainous dizziness Dizziness and giddiness documented [facility]* Diagnosis Panic attacks Panic disorder without agoraphobia documented in this encounter [facility] note* Diagnosis Acute URI- Primary Acute upper respiratory infections of unspecified site [facility]* Diagnosis Vertigo Dizziness and giddiness Migraine without status migrainosus, not intractable, unspecified migraine type Menstrual migraine without status migrainosus, not intractable Menstrual migraine, without mention of intractable migraine without mention of status migrainosus Cervicalgia documented [facility]* Diagnosis Vertigo Dizziness and giddiness Migraine without status migrainosus, not intractable, unspecified migraine type Menstrual migraine without status migrainosus, not intractable Menstrual migraine, without mention of intractable migraine without mention of status migrainosus Spinal stenosis of cervical region Spinal stenosis in cervical region [facility] Other fatigue- Primary Annual physical exam Routine general medical examination at a health care facility [facility] Diagnosis External hemorrhoid- Primary External hemorrhoids without mention of complication Hemorrhoidal skin tag Residual hemorrhoidal skin tags [facility] Diagnosis External hemorrhoid- Primary External hemorrhoids without mention of complication External hemorrhoid External hemorrhoids without mention of complication [facility] Diagnosis Bilateral wrist pain Pain in joint, forearm Ganglion cyst of both wrists External hemorrhoid External hemorrhoids without mention of complication [facility] Diagnosis Acute cough- Primary Acute cough External hemorrhoid External hemorrhoids without mention of complication [facility] Diagnosis Acute cough External hemorrhoid External hemorrhoids without mention of complication [facility] Diagnosis Encounter for screening mammogram for breast cancer External hemorrhoid External hemorrhoids without mention of complication [facility]* Diagnosis Sore throat- Primary Acute pharyngitis Sinobronchitis Unspecified sinusitis (chronic) External hemorrhoid External hemorrhoids without mention of complication [facility] Diagnosis Elevated cholesterol- Primary Pure hypercholesterolemia [place] headache Headache [facility]* Diagnosis Gynecologic exam normal- Primary Cervical cancer screening Screening for malignant neoplasm of the cervix [facility]* Diagnosis Perimenopause- Primary Symptomatic menopausal or female climacteric states Perimenopausal vasomotor symptoms Symptomatic menopausal or female climacteric states Weight gain Abnormal weight gain [facility]* Diagnosis Postoperative examination- Primary Follow-up examination, following unspecified surgery [facility]* Diagnosis Abnormal weight gain- Primary Nutritional counseling [facility]* Diagnosis Abnormal WBC count- Primary Unspecified disease of white blood cells [facility]* Diagnosis Anal fissure- Primary [facility] Diagnosis Anxiety- Primary Anxiety state, unspecified Screening for depression Other decreased white blood cell (WBC) count Other migraine without status migrainosus, not intractable MCC (current) use of hormonal 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 [facility]* Diagnosis Panic attacks- Primary Panic disorder without agoraphobia documented [facility] encounter [facility] note* Diagnosis Persistent postural-perceptual dizziness- Primary Migraine without aura and without status migrainosus, not intractable Migraine without aura, without mention of intractable migraine without mention of status migrainosus [facility]* Diagnosis Migraine without aura and without status migrainosus, not intractable- Primary Migraine without aura, without mention of intractable migraine without mention of status migrainosus Persistent postural-perceptual dizziness Vestibular migraine documented in this encounter [facility] Discharge instructions No data available for this section [facility] Progress note No data available for this section [facility] Reason for referral (narrative)* Diagnostic Procedure Only (Routine) - New Request Specialty Diagnoses / Procedures Referred By Carson garcia Referred To Contact [facility] Diagnoses Encounter for screening mammogram for breast cancer Procedures MARIO SCREENING W KIRILL SCREENING DIGITAL BREAST TOMOSYNTHESIS BI SCREENING MAMMOGRAPHY BI 2-VIEW BREAST INC Carol Link MD [address] [place] [address] [facility] [address] [place] [id number] Referral ID Status Reason Start Date Expiration Date Visits Requested Visits Authorized [id number] New Request Auto-Generat ed Referral 4 10/09/2025 1 1 [facility] Advance Directives No Advanced Directives Records FoundDocuments on File Type Date Recorded Patient Head Orthopedic Team Physician Expl anation Advance Directive(s) 01/30/2022 3:20 PM Documents on File Type Date Recorded Patient Head Orthopedic Team Physician Expl anation Advance Directive(s) 01/30/2022 3:20 PM Advance Directive Response Recorded Date/ Time Living Will No September 10 12:04pm Power of Punch Finisher No September 10, 2022 12:04pm Reason for Referral Specialty Diagnoses / Procedures Referred By Contac t Referred To Contact Diagnoses Abnormal weight gain Nutritional counseling Procedures EATING WELL FOR OPTIMAL HEALTH SMA OFFICE/OUTPATIENT [facility] MDM 60 MINUTES Jossie Lew MD [address], [place] [address] Referral ID Status Reason Start Date Expiration Date Visits Requested Visits Authorized [id number] Pending Review PCP Requested Referral 12/16/2024 12/16/2025 1 1 Specialty Diagnoses / Procedures Referred By Contac t Referred To Contact Diagnoses Abnormal weight gain Procedures ENDOCRINE MEDICAL WEIGHT MANAGEMENT OFFICE/OUTPATIENT [facility] 60 MINUTES Ashlee Munoz MD [address] [place] [address] Referral ID Status Reason Start Date Expiration Date Visits Requested Visits Authorized [id number] Authorized PCP Requested Referral 12/02/2024 12/02/2025 1 1 Specialty Diagnoses / Procedures Referred By Contac t Referred To Contact Nutrition Diagnoses Abnormal weight gain Procedures CONSULT TO NUTRITION THERAPY MEDICAL NUTRITION ASSMT&IVNTJ INDIV EACH 15 NM Ashlee Munoz MD [address] [place] [address] Referral ID Status Reason Start Date Expiration Date Visits Requested Visits Authorized [id number] Authorized PCP Requested Referral 12/02/2024 12/02/2025 1 4 Specialty Diagnoses / Procedures Referred By Contac t Referred To Contact [facility] Diagnoses Vertigo Migraine without status migrainosus, not intractable, unspecified migraine type Menstrual migraine without status migrainosus, not intractable Spinal stenosis of cervical region Procedures MRI CERVICAL SPINE WO IVCON MRI SPINAL CANAL CERVICAL W/O CONTRAST Frandy Rivera Jr., MD [address] [phone] [facility] Referral ID Status Reason Start Date Expiration Date Visits Requested Visits Authorized [id number] Pending Review Auto-Generat ed Referral 07/30/2022 08/29/2023 1 1 Specialty Diagnoses / Procedures Referred By Contac t Referred To Contact [facility] IMAGING Diagnoses Vertigo Migraine without status migrainosus, not intractable, unspecified migraine type Menstrual migraine without status migrainosus, not intractable Cervicalgia Procedures MRI BRAIN WO/W IVCON MRI BRAIN BRAIN STEM W/O W/CONTRAST MATERIAL Frandy Smith Jr., MD [address] [facility] [address] [place] [address] [facility] Referral ID Status Reason Start Date Expiration Date Visits Requested Visits Authorized [id number] Pending Review Auto-Generat ed Referral 07/30/2022 08/29/2023 1 1 Specialty Diagnoses / Procedures Referred By Contac t Referred To Contact Neurology Diagnoses Hx of migraines Dizziness Nausea Procedures CONSULT TO NEUROLOGY OFFICE/OUTPATIENT [facility] 60-74 MINUTES Jacy Newman, CHECKER.THERAPIST PHYS [address] [place] [address] Referral ID Status Reason Start Date Expiration Date Visits Requested Visits Authorized [id number] Authorized PCP Requested Referral 05/07/2022 05/07/2023 1 1 Chief Complaint and Reason for Visit Chief Complaint SCREENING Family History No Family History Records Found Relationship Condition Age at Onset Recorded Date/T violeta father High blood cholesterol Unknown mother Malignant neoplasm Unknown Malignant neoplasm of skin Unknown Summary Purpose Health Concerns Infection Onset Date Last Indicated Resolved Time COVID-19 Rule-Out 05/30/2023 05/30/2023 Additional Source Comments Source Comments (unrecognize d section and content) In the event this informatio n is protected by the Federal Confidentiality of Alcohol and Drug Abuse Patient Records regulations: The Federal rules restrict any use of the information to criminally investigate or prosecute any alcohol or drug abuse patient.[facility] the event this information is protected by the Federal Confidentiality of Alcohol and Drug Abuse Patient Records regulations: The Federal rules restrict any use of the information to criminally investigate or prosecute any alcohol or drug abuse patient.[facility] the event this information is protected by the Federal Confidentiality of Alcohol and Drug Abuse Patient Records regulations: The Federal rules restrict any use of the information to criminally investigate or prosecute any alcohol or drug abuse patient.[facility] the event this information is protected by the Federal Confidentiality of Alcohol and Drug Abuse Patient Records regulations: The Federal rules restrict any use of the information to criminally investigate or prosecute any alcohol or drug abuse patient.[facility] the event this information is protected by the Federal Confidentiality of Alcohol and Drug Abuse Patient Records regulations: The Federal rules restrict any use of the information to criminally investigate or prosecute any alcohol or drug abuse patient.[facility] the event this information is protected by the Federal Confidentiality of Alcohol and Drug Abuse Patient Records regulations: The Federal rules restrict any use of the information to criminally investigate or prosecute any alcohol or drug abuse patient.[facility] the event this information is protected by the Federal Confidentiality of Alcohol and Drug Abuse Patient Records regulations: The Federal rules restrict any use of the information to criminally investigate or prosecute any alcohol or drug abuse patient.[facility] the event this information is protected by the Federal Confidentiality of Alcohol and Drug Abuse Patient Records regulations: The Federal rules restrict any use of the information to criminally investigate or prosecute any alcohol or drug abuse patient.[facility] the event this information is protected by the Federal Confidentiality of Alcohol and Drug Abuse Patient Records regulations: The Federal rules restrict any use of the information to criminally investigate or prosecute any alcohol or drug abuse patient.[facility] the event this information is protected by the Federal Confidentiality of Alcohol and Drug Abuse Patient Records regulations: The Federal rules restrict any use of the information to criminally investigate or prosecute any alcohol or drug abuse patient.[facility] the event this information is protected by the Federal Confidentiality of Alcohol and Drug Abuse Patient Records regulations: The Federal rules restrict any use of the information to criminally investigate or prosecute any alcohol or drug abuse patient.[facility] the event this information is protected by the Federal Confidentiality of Alcohol and Drug Abuse Patient Records regulations: The Federal rules restrict any use of the information to criminally investigate or prosecute any alcohol or drug abuse patient.[facility] the event this information is protected by the Federal Confidentiality of Alcohol and Drug Abuse Patient Records regulations: The Federal rules restrict any use of the information to criminally investigate or prosecute any alcohol or drug abuse patient.[facility] the event this information is protected by the Federal Confidentiality of Alcohol and Drug Abuse Patient Records regulations: The Federal rules restrict any use of the information to criminally investigate or prosecute any alcohol or drug abuse patient.[facility] the event this information is protected by the Federal Confidentiality of Alcohol and Drug Abuse Patient Records regulations: The Federal rules restrict any use of the information to criminally investigate or prosecute any alcohol or drug abuse patient.[facility] the event this information is protected by the Federal Confidentiality of Alcohol and Drug Abuse Patient Records regulations: The Federal rules restrict any use of the information to criminally investigate or prosecute any alcohol or drug abuse patient.[facility] the event this information is protected by the Federal Confidentiality of Alcohol and Drug Abuse Patient Records regulations: The Federal rules restrict any use of the information to criminally investigate or prosecute any alcohol or drug abuse patient.[facility] the event this information is protected by the Federal Confidentiality of Alcohol and Drug Abuse Patient Records regulations: The Federal rules restrict any use of the information to criminally investigate or prosecute any alcohol or drug abuse patient.[facility] the event this information is protected by the Federal Confidentiality of Alcohol and Drug Abuse Patient Records regulations: The Federal rules restrict any use of the information to criminally investigate or prosecute any alcohol or drug abuse patient.[facility] Hospital[facility] the event this information is protected by the Federal Confidentiality of Alcohol and Drug Abuse Patient Records regulations: The Federal rules restrict any use of the information to criminally investigate or prosecute any alcohol or drug abuse patient.[facility] Hospital[facility] the event this information is protected by the Federal Confidentiality of Alcohol and Drug Abuse Patient Records regulations: The Federal rules restrict any use of the information to criminally investigate or prosecute any alcohol or drug abuse patient.[facility] the event this information is protected by the Federal Confidentiality of Alcohol and Drug Abuse Patient Records regulations: The Federal rules restrict any use of the information to criminally investigate or prosecute any alcohol or drug abuse patient.[facility] the event this information is protected by the Federal Confidentiality of Alcohol and Drug Abuse Patient Records regulations: The Federal rules restrict any use of the information to criminally investigate or prosecute any alcohol or drug abuse patient.[facility] the event this information is protected by the Federal Confidentiality of Alcohol and Drug Abuse Patient Records regulations: The Federal rules restrict any use of the information to criminally investigate or prosecute any alcohol or drug abuse patient.[facility] the event this information is protected by the Federal Confidentiality of Alcohol and Drug Abuse Patient Records regulations: The Federal rules restrict any use of the information to criminally investigate or prosecute any alcohol or drug abuse patient.[facility] Hospital[facility] the event this information is protected by the Federal Confidentiality of Alcohol and Drug Abuse Patient Records regulations: The Federal rules restrict any use of the information to criminally investigate or prosecute any alcohol or drug abuse patient.[facility] the event this information is protected by the Federal Confidentiality of Alcohol and Drug Abuse Patient Records regulations: The Federal rules restrict any use of the information to criminally investigate or prosecute any alcohol or drug abuse patient.[facility] HospitalIn the event this information is protected by the Federal Confidentiality of Alcohol and Drug Abuse Patient Records regulations: The Federal rules restrict any use of the information to criminally investigate or prosecute any alcohol or drug abuse patient.[facility] the event this information is protected by the Federal Confidentiality of Alcohol and Drug Abuse Patient Records regulations: The Federal rules restrict any use of the information to criminally investigate or prosecute any alcohol or drug abuse patient.[facility] Hospital[facility] the event this information is protected by the Federal Confidentiality of Alcohol and Drug Abuse Patient Records regulations: The Federal rules restrict any use of the information to criminally investigate or prosecute any alcohol or drug abuse patient.[facility] the event this information is protected by the Federal Confidentiality of Alcohol and Drug Abuse Patient Records regulations: The Federal rules restrict any use of the information to criminally investigate or prosecute any alcohol or drug abuse patient.[facility] the event this information is protected by the Federal Confidentiality of Alcohol and Drug Abuse Patient Records regulations: The Federal rules restrict any use of the information to criminally investigate or prosecute any alcohol or drug abuse patient.[facility] the event this information is protected by the Federal Confidentiality of Alcohol and Drug Abuse Patient Records regulations: The Federal rules restrict any use of the information to criminally investigate or prosecute any alcohol or drug abuse patient.[facility] the event this information is protected by the Federal Confidentiality of Alcohol and Drug Abuse Patient Records regulations: The Federal rules restrict any use of the information to criminally investigate or prosecute any alcohol or drug abuse patient.[facility] the event this information is protected by the Federal Confidentiality of Alcohol and Drug Abuse Patient Records regulations: The Federal rules restrict any use of the information to criminally investigate or prosecute any alcohol or drug abuse patient.[facility] HospitalIn the event this information is protected by the Federal Confidentiality of Alcohol and Drug Abuse Patient Records regulations: The Federal rules restrict any use of the information to criminally investigate or prosecute any alcohol or drug abuse patient.[facility] the event this information is protected by the Federal Confidentiality of Alcohol and Drug Abuse Patient Records regulations: The Federal rules restrict any use of the information to criminally investigate or prosecute any alcohol or drug abuse patient.[facility] HospitalIn the event this information is protected by the Federal Confidentiality of Alcohol and Drug Abuse Patient Records regulations: The Federal rules restrict any use of the information to criminally investigate or prosecute any alcohol or drug abuse patient.[facility] HospitalIn the event this information is protected by the Federal Confidentiality of Alcohol and Drug Abuse Patient Records regulations: The Federal rules restrict any use of the information to criminally investigate or prosecute any alcohol or drug abuse patient.White HospitalIn the event this information is protected by the Federal Confidentiality of Alcohol and Drug Abuse Patient Records regulations: The Federal rules restrict any use of the information to criminally investigate or prosecute any alcohol or drug abuse patient.[facility] HospitalIn the event this information is protected by the Federal Confidentiality of Alcohol and Drug Abuse Patient Records regulations: The Federal rules restrict any use of the information to criminally investigate or prosecute any alcohol or drug abuse patient.[facility] HospitalIn the event this information is protected by the Federal Confidentiality of Alcohol and Drug Abuse Patient Records regulations: The Federal rules restrict any use of the information to criminally investigate or prosecute any alcohol or drug abuse patient.[facility] HospitalIn the event this information is protected by the Federal Confidentiality of Alcohol and Drug Abuse Patient Records regulations: The Federal rules restrict any use of the information to criminally investigate or prosecute any alcohol or drug abuse patient.[facility] HospitalIn the event this information is protected by the Federal Confidentiality of Alcohol and Drug Abuse Patient Records regulations: The Federal rules restrict any use of the information to criminally investigate or prosecute any alcohol or drug abuse patient.White HospitalIn the event this information is protected by the Federal Confidentiality of Alcohol and Drug Abuse Patient Records regulations: The Federal rules restrict any use of the information to criminally investigate or prosecute any alcohol or drug abuse patient.[facility] HospitalIn the event this information is protected by the Federal Confidentiality of Alcohol and Drug Abuse Patient Records regulations: The Federal rules restrict any use of the information to criminally investigate or prosecute any alcohol or drug abuse patient.White HospitalIn the event this information is protected by the Federal Confidentiality of Alcohol and Drug Abuse Patient Records regulations: The Federal rules restrict any use of the information to criminally investigate or prosecute any alcohol or drug abuse patient.White HospitalIn the event this information is protected by the Federal Confidentiality of Alcohol and Drug Abuse Patient Records regulations: The Federal rules restrict any use of the information to criminally investigate or prosecute any alcohol or drug abuse patient.White HospitalIn the event this information is protected by the Federal Confidentiality of Alcohol and Drug Abuse Patient Records regulations: The Federal rules restrict any use of the information to criminally investigate or prosecute any alcohol or drug abuse patient.White HospitalIn the event this information is protected by the Federal Confidentiality of Alcohol and Drug Abuse Patient Records regulations: The Federal rules restrict any use of the information to criminally investigate or prosecute any alcohol or drug abuse patient.White HospitalIn the event this information is protected by the Federal Confidentiality of Alcohol and Drug Abuse Patient Records regulations: The Federal rules restrict any use of the information to criminally investigate or prosecute any alcohol or drug abuse patient.White HospitalIn the event this information is protected by the Federal Confidentiality of Alcohol and Drug Abuse Patient Records regulations: The Federal rules restrict any use of the information to criminally investigate or prosecute any alcohol or drug abuse patient.[facility] HospitalIn the event this information is protected by the Federal Confidentiality of Alcohol and Drug Abuse Patient Records regulations: The Federal rules restrict any use of the information to criminally investigate or prosecute any alcohol or drug abuse patient.White HospitalIn the event this information is protected by the Federal Confidentiality of Alcohol and Drug Abuse Patient Records regulations: The Federal rules restrict any use of the information to criminally investigate or prosecute any alcohol or drug abuse patient.White HospitalIn the event this information is protected by the Federal Confidentiality of Alcohol and Drug Abuse Patient Records regulations: The Federal rules restrict any use of the information to criminally investigate or prosecute any alcohol or drug abuse patient.White HospitalIn the event this information is protected by the Federal Confidentiality of Alcohol and Drug Abuse Patient Records regulations: The Federal rules restrict any use of the information to criminally investigate or prosecute any alcohol or drug abuse patient.White HospitalIn the event this information is protected by the Federal Confidentiality of Alcohol and Drug Abuse Patient Records regulations: The Federal rules restrict any use of the information to criminally investigate or prosecute any alcohol or drug abuse patient.White HospitalIn the event this information is protected by the Federal Confidentiality of Alcohol and Drug Abuse Patient Records regulations: The Federal rules restrict any use of the information to criminally investigate or prosecute any alcohol or drug abuse patient.White HospitalIn the event this information is protected by the Federal Confidentiality of Alcohol and Drug Abuse Patient Records regulations: The Federal rules restrict any use of the information to criminally investigate or prosecute any alcohol or drug abuse patient.White HospitalIn the event this information is protected by the Federal Confidentiality of Alcohol and Drug Abuse Patient Records regulations: The Federal rules restrict any use of the information to criminally investigate or prosecute any alcohol or drug abuse patient.White HospitalIn the event this information is protected by the Federal Confidentiality of Alcohol and Drug Abuse Patient Records regulations: The Federal rules restrict any use of the information to criminally investigate or prosecute any alcohol or drug abuse patient.White HospitalIn the event this information is protected by the Federal Confidentiality of Alcohol and Drug Abuse Patient Records regulations: The Federal rules restrict any use of the information to criminally investigate or prosecute any alcohol or drug abuse patient.[facility] HospitalIn the event this information is protected by the Federal Confidentiality of Alcohol and Drug Abuse Patient Records regulations: The Federal rules restrict any use of the information to criminally investigate or prosecute any alcohol or drug abuse patient.White HospitalIn the event this information is protected by the Federal Confidentiality of Alcohol and Drug Abuse Patient Records regulations: The Federal rules restrict any use of the information to criminally investigate or prosecute any alcohol or drug abuse patient.White HospitalIn the event this information is protected by the Federal Confidentiality of Alcohol and Drug Abuse Patient Records regulations: The Federal rules restrict any use of the information to criminally investigate or prosecute any alcohol or drug abuse patient.White HospitalIn the event this information is protected by the Federal Confidentiality of Alcohol and Drug Abuse Patient Records regulations: The Federal rules restrict any use of the information to criminally investigate or prosecute any alcohol or drug abuse patient.White HospitalIn the event this information is protected by the Federal Confidentiality of Alcohol and Drug Abuse Patient Records regulations: The Federal rules restrict any use of the information to criminally investigate or prosecute any alcohol or drug abuse patient.White HospitalIn the event this information is protected by the Federal Confidentiality of Alcohol and Drug Abuse Patient Records regulations: The Federal rules restrict any use of the information to criminally investigate or prosecute any alcohol or drug abuse patient.[facility] Reason for Visit (unrecogniz ed section and content) Specialty Diagnoses / Procedures Referred By Carson garcia Referred To Contact ANESTHESIOLOGY Diagnoses PRE OP Procedures COMPLETE PACC Dena Khanna MD [address] [place] [address] 8, [address] [place] [id number] Referral ID Status Reason Start Date Expiration Date V isits Requested Visits Authorized [id number] Pending Review 02/16/2022 05/17/2022 1 1 Reason Onset Date Comments Pre-Op Teaching 02/13/2022 Reason Comments Urinary Incontinence Specialty Diagnoses / Procedures Referred By Carson garcia Referred To Contact [facility] Diagnoses TOM (stress urinary incontinence, female) Procedures URODYNAMICS WHI COMPLX CYSTOMETRO W/VOID PRESS&URETHRAL PROFILE Dena Khanna MD [address] [facility] [place] [address] [facility] [place] [address] [place] [address] Referral ID Status Reason Start Date Expiration Date V isits Requested Visits Authorized [id number] Closed Auto-Generate d Referral 12/08/2021 12/08/2022 1 1 Reason Comments Established Patient Pre-op Consent Reason Comments Informed Consent Stop Pain Study Reason Comments Telemedicine Reason Comments Post-Op Visit Reason Comments 04-12-2022 COLON/EXTERNAL HEMORRHOIDS LO DI Reason Onset Date Comments Refill Request 04/19/2022 Reason Onset Date Comments Refill Request 04/30/2022 Reason Comments Dizziness Reason Comments Patient Request Reason Comments Hospital F/U Reason Comments Refill Request Reason Comments Covid19 Concern Reason Comments Urinary Frequency since previous appt on 06/12 given keflex Reason Comments New Patient Evaluation Dizziness Reason Onset Date Comments Refill Request 08/01/2022 Reason Comments Rash Poison sheron on face a nd arms x 2 days Reason Comments ER F/U Reason Comments Established Patient Reason Comments PT Discharge Specialty Diagnoses / Procedures Referred By Contac t Referred To Contact Physical Therapy / PHYSICAL THERAPY Diagnoses Vertigo [R42] Procedures NEW RS PT VESTIBULAR VERTIGO Jovi Kiser, CHECKER.INDUCTION COORDINATION ENGINEER [address] [place] [address] Galilea Marquez, PT Referral ID Status Reason Start Date Expiration Date V isits Requested Visits Authorized [id number] Authorized 11/18/2021 11/17/2022 99 99 Reason Comments Follow Up Dizziness Headaches Reason Comments Follow Up 3 month F/U for head aches and vertigo Reason Comments Sore Throat Left ear pain x 3 da ys Specialty Diagnoses / Procedures Referred By Contac t Referred To Contact [facility] IMAGING Diagnoses Vertigo Migraine without status migrainosus, not intractable, unspecified migraine type Menstrual migraine without status migrainosus, not intractable Cervicalgia Procedures MRI BRAIN WO/W IVCON MRI BRAIN BRAIN STEM W/O W/CONTRAST MATERIAL Frandy Smith Jr., MD [address] [facility] [address] [place] [address] [facility] [place] [address] Referral ID Status Reason Start Date Expiration Date V isits Requested Visits Authorized [id number] Closed Auto-Generate d Referral 07/30/2022 11/04/2022 1 1 Specialty Diagnoses / Procedures Referred By Contac t Referred To Contact MR IMAGING Diagnoses Vertigo Migraine without status migrainosus, not intractable, unspecified migraine type Menstrual migraine without status migrainosus, not intractable Spinal stenosis of cervical region Procedures MRI CERVICAL SPINE WO IVCON MRI SPINAL CANAL CERVICAL W/O CONTRAST MATRL Frandy Smith Jr., MD [address] [facility] [address] [place] [address] [place] [address] Referral ID Status Reason Start Date Expiration Date V isits Requested Visits Authorized [id number] Closed Auto-Generate d Referral 07/30/2022 11/04/2022 1 1 Reason Comments Consult Reason Comments Cough Cough, fever, bodyac hes, chills x 10 days Reason Comments Chest Congestion Cough, sore throat x 1.5 weeks Reason Onset Date Comments Refill Request 11/04/2024 Reason Comments Yearly Exam Reason Comments Well Woman Reason Comments Menopause Consult Reason Comments Post Op Reason Comments Wellness Weight Control Reason Comments Med Change Request Reason Comments Follow Up Lab results & medica tion Reason Comments Migraine Started years ago. T his last one started the March 31 and lasted 11 days. Is taking Nurtec. Was on Rizotriptan. Dizziness Going on since 2017, when her initial episode started. Has them more days than she doesn't. She experienced vertigo back then. Feels off balance. Reason Comments Follow Up Tranfer of care Care Teams (unrecognized sec tion and content) Restaurant Expeditor Relationship Specialty Start Date End Date Carol Lebron MD [address] [place] [address] PCP - General Internal Medicine 09/27/20 Restaurant Expeditor Relationship Specialty Start Date End Date Carol Lebron MD [address] [place] [address] PCP - General Internal Medicine 09/27/20 Restaurant Expeditor Relationship Specialty Start Date End Date Carol Lebron MD [address] [place] [address] PCP - General Internal Medicine 09/27/20 Restaurant Expeditor Relationship Specialty Start Date End Date Carol Lebron MD [address] [place] [address] PCP - General Internal Medicine 09/27/20 Restaurant Expeditor Relationship Specialty Start Date End Date Carol Lebron MD [address] [place] [address] PCP - General Internal Medicine 09/27/20 Restaurant Expeditor Relationship Specialty Start Date End Date Carol Lebron MD [address] [place] [address] PCP - General Internal Medicine 09/27/20 Restaurant Expeditor Relationship Specialty Start Date End Date Carol Lebron MD [address] [place] [address] PCP - General Internal Medicine 09/27/20 Restaurant Expeditor Relationship Specialty Start Date End Date Carol Lebron MD [address] [place] [address] PCP - General Internal Medicine 09/27/20 Restaurant Expeditor Relationship Specialty Start Date End Date Carol Lebron MD [address] [place] [address] PCP - General Internal Medicine 09/27/20 Restaurant Expeditor Relationship Specialty Start Date End Date Carol Lebron MD [address] [place] [address] PCP - General Internal Medicine 09/27/20 Restaurant Expeditor Relationship Specialty Start Date End Date Carol Lebron MD [address] [place] [address] PCP - General Internal Medicine 09/27/20 Restaurant Expeditor Relationship Specialty Start Date End Date Carol Lebron MD [address] [place] [address] PCP - General Internal Medicine 09/27/20 Restaurant Expeditor Relationship Specialty Start Date End Date Carol Lebron MD [address] [place] [address] PCP - General Internal Medicine 09/27/20 Restaurant Expeditor Relationship Specialty Start Date End Date Carol Lebron MD [address] [place] [address] PCP - General Internal Medicine 09/27/20 Restaurant Expeditor Relationship Specialty Start Date End Date Carol Lebron MD [address] [place] [address] PCP - General Internal Medicine 09/27/20 Restaurant Expeditor Relationship Specialty Start Date End Date Carol Lebron MD [address] [place] [address] PCP - General Internal Medicine 09/27/20 Restaurant Expeditor Relationship Specialty Start Date End Date Carol Lebron MD [address] [place] [address] PCP - General Internal Medicine 09/27/20 Team Status: Active Member Role Status Dates Prosper Cobos VISCOSITY WORKER, VISCOSITY WORKER-C Family Provider Activ e Dr. Carol Lebron MD Primary Care Provider Active Team Status: Inactive Member Role Status Dates Dr. Carol Lebron MD Primary Care Provider Active Dr. Ann-Marie Brooks MD Attending Provider, Karyn velazquez Active Restaurant Expeditor Relationship Specialty Start Date End Date Carol Lebron MD [address] [place] [address] PCP - General Internal Medicine 09/27/20 Restaurant Expeditor Relationship Specialty Start Date End Date Carol Lebron MD [address] [place] [address] PCP - General Internal Medicine 09/27/20 Restaurant Expeditor Relationship Specialty Start Date End Date Carol Lebron MD [address] [place] [address] PCP - General Internal Medicine 09/27/20 Restaurant Expeditor Relationship Specialty Start Date End Date Carol Lebron MD [address] [place] [address] PCP - General Internal Medicine 09/27/20 Restaurant Expeditor Relationship Specialty Start Date End Date Carol Lebron MD [address] [place] [address] PCP - General Internal Medicine 09/27/20 Restaurant Expeditor Relationship Specialty Start Date End Date Carol Lebron MD [address] [place] [address] PCP - General Internal Medicine 09/27/20 Restaurant Expeditor Relationship Specialty Start Date End Date Carol Lebron MD [address] [place] [address] PCP - General Internal Medicine 09/27/20 Restaurant Expeditor Relationship Specialty Start Date End Date Carol Lebron MD [address] [place] [address] PCP - General Internal Medicine 09/27/20 Restaurant Expeditor Relationship Specialty Start Date End Date Carol Lebron MD [address] [place] [address] PCP - General Internal Medicine 09/27/20 Restaurant Expeditor Relationship Specialty Start Date End Date Carol Lebron MD [address] [place] [address] PCP - General Internal Medicine 09/27/20 Rosanne Sykes PA-C [address] [place] [address] [facility] 10/25/24 Silvina Presley APRN.INDUCTION COORDINATION ENGINEER [address] [place] [address] [facility] 10/25/24 Katherine Tirado PA-C [address] [place] [address] [employer] [facility] 10/25/24 Restaurant Expeditor Relationship Specialty Start Date End Date Carol Lebron MD [address] [place] [address] PCP - General Internal Medicine 09/27/20 Rosanne Sykes PA-C [address] [place], [place] 0844286 [phone] [employer] Family [facility] 10/25/24 iSlvina Presley APRN.INDUCTION COORDINATION ENGINEER [address] [place] [address] [facility] [facility] 10/25/24 Katherine Tirado PA-C [address] [place] [address] [facility] 10/25/24 Restaurant Expeditor Relationship Specialty Start Date End Date Carol Lebron MD [address] [place] [address] PCP - General Internal Medicine 09/27/20 Rosanne Sykes PA-C [address] [place], [place] 2277262 [phone] [facility] [employer] 10/25/24 Silvina Presley APRN.INDUCTION COORDINATION ENGINEER [address] [place] [address] [facility] [facility] [employer] 10/25/24 Katherine Tirado PA-C [address] [place] [address] [employer] Family [facility] 10/25/24 Restaurant Expeditor Relationship Specialty Start Date End Date Carol Lebron MD [address] [place] [address] PCP - General Internal Medicine 09/27/20 Rosanne Sykes PA-C [address] [place], [place] [id number] [phone] [facility] [facility] [facility] 10/25/24 Silvina Presley APRN.INDUCTION COORDINATION ENGINEER [address] [place] [address] [facility] [employer] 10/25/24 Katherine Tirado PA-C [address] [place] [address] [facility] 10/25/24 Restaurant Expeditor Relationship Specialty Start Date End Date Carol Lebron MD [address] [place] [address] PCP - General Internal Medicine 09/27/20 Rosanne Sykes PA-C [address] [place] [address] [facility] 10/25/24 Silvina Presley APRN.INDUCTION COORDINATION ENGINEER [address] [place] [address] [facility] [facility] 10/25/24 Katherine Tirado PA-C [address] [place] [address] [employer] Family [facility] 10/25/24 Restaurant Expeditor Relationship Specialty Start Date End Date Carol Lebron MD [address] [place] [address] PCP - General Internal Medicine 09/27/20 Rosanne Sykes PA-C [address] [place] [address] [facility] 10/25/24 Silvina Presley APRN.INDUCTION COORDINATION ENGINEER [address] [place] [address] [employer] [facility] 10/25/24 Katherine Tirado PA-C [address] [place] [address] [facility] 10/25/24 Restaurant Expeditor Relationship Specialty Start Date End Date Carol Lebron MD [address] [place] [address] PCP - General Internal Medicine 09/27/20 Rosanne Sykes PA-C [address] [place] [address] [facility] 10/25/24 Silvina Presley, CHECKER.INDUCTION COORDINATION ENGINEER [address] [place] [address] [facility] [facility] 10/25/24 Katherine Tirado PA-C [address] [place] [address] [facility] [employer] 10/25/24 Restaurant Expeditor Relationship Specialty Start Date End Date Carol Lebron MD [address] [place] [address] PCP - General Internal Medicine 09/27/20 Rosanne Sykes PA-C [address] [place] [address] [facility] 10/25/24 Silvina Presley APRN.INDUCTION COORDINATION ENGINEER [address] [place] [address] [employer] [facility] 10/25/24 Katherine Tirado PA-C [address] [place] [address] [facility] [facility] 10/25/24 Restaurant Expeditor Relationship Specialty Start Date End Date Carol Lebron MD [address] [place] [address] PCP - General Internal Medicine 09/27/20 Rosanne Sykes PA-C [address] [place] [address] [facility] 10/25/24 Silvina Presley, ZURDO.INDUCTION COORDINATION ENGINEER [address] [facility] [place] [address] [employer] [facility] 10/25/24 Katherine Tirado PA-C [address] [place] [address] [facility] [employer] 10/25/24 Restaurant Expeditor Relationship Specialty Start Date End Date Carol Lebron MD [address] [place] [address] PCP - General Internal Medicine 09/27/20 Silvina Presley APRN.INDUCTION COORDINATION ENGINEER [address] [place] [address] [employer] [facility] 10/25/24 Restaurant Expeditor Relationship Specialty Start Date End Date Carol Lebron MD [address] [facility] [place] [address] PCP - General Internal Medicine 09/27/20 Silvina Presley APRN.INDUCTION COORDINATION ENGINEER [address] [facility] [address] [employer] [facility] 10/25/24 Restaurant Expeditor Relationship Specialty Start Date End Date Carol Lebron MD [address] [facility] [place] [address] PCP - General Internal Medicine 09/27/20 Silvina Presley APRN.INDUCTION COORDINATION ENGINEER [address] [facility] [address] [employer] [facility] 10/25/24 Restaurant Expeditor Relationship Specialty Start Date End Date Carol Lebron MD [address] [place] [address] PCP - General Internal Medicine 09/27/20 Silvina Presley APRN.INDUCTION COORDINATION ENGINEER [address] [facility] [address] [employer] [facility] 10/25/24 Restaurant Expeditor Relationship Specialty Start Date End Date Carol Lebron MD [address] [facility] [place] [address] PCP - General Internal Medicine 09/27/20 Silvina Presley APRN.INDUCTION COORDINATION ENGINEER [address] [place] [address] [employer] [facility] 10/25/24 Restaurant Expeditor Relationship Specialty Start Date End Date Carol Lebron MD [address] [place] [address] PCP - General Internal Medicine 09/27/20 Silvina Presley APRN.INDUCTION COORDINATION ENGINEER [address] [place] [address] [employer] [facility] 10/25/24 Restaurant Expeditor Relationship Specialty Start Date End Date Carol Lebron MD [address] [place] [address] PCP - General Internal Medicine 09/27/20 Silvina Presley, CHECKER.INDUCTION COORDINATION ENGINEER [address] [place] [address] [employer] [facility] 10/25/24 Restaurant Expeditor Relationship Specialty Start Date End Date Carol Lebron MD [address] [place] [address] PCP - General Internal Medicine 09/27/20 Silvina Presley CHECKER.INDUCTION COORDINATION ENGINEER [address] [facility] [address] [employer] Internal Medicine 10/25/24 Restaurant Expeditor Relationship Specialty Start Date End Date Carol Lebron MD [address] [place] [address] PCP - General Internal Medicine 09/27/20 Silvina Presley APRN.INDUCTION COORDINATION ENGINEER [address] [place] [address] [employer] [facility] 10/25/24 Goals (unrecognized section and content) Goals may be documented in a n alternate section Care Team (unrecognized sect ion and content) Care Team Personnel Name: POONAM PROSPER Yuliya CHECKER - INDUCTION COORDINATION ENGINEER Position: P4 Advanced Practice Nurse Med Service: Employed Provider Member Role: Primary Care Physician Address: Address: [address] [facility] [place], [place] [address] Care Team Related Persons Name: PRAVEEN REED Address: Home [address] [place], [place] [id number] INFORMATION SOURCE (unrecogn ized section and content) DATE CREATED AUTHOR 09/21/2022 [facility] DATE CREATED AUTHOR AUTHOR'S ORGANIZ ATION 04/07/2024 [facility] ([place]) DATE CREATED AUTHOR AUTHOR'S ORGANIZ ATION 07/19/2025 [facility] DATE CREATED AUTHOR AUTHOR'S ORGANIZ ATION 08/06/2025 [facility] FOR RECORDS PERTAINING TO PATIENTS WHO ARE OR HAVE BEEN ENROLLED IN A CHEMICAL DEPENDENCY/SUBSTANCEABUSE PROGRAM, SOME INFORMATION MAY BE OMITTED. This clinical summary was aggregated from multiple sources. Caution should be exercised in using it in the provision of clinical care. This summary normalizes information from multiple sources, and as a consequence, information in this document may materially change the coding, format and clinical context of patient data. In addition, data may be omitted in some cases. CLINICAL DECISIONS SHOULD BE BASED ON THE PRIMARY CLINICAL RECORDS. [employer] [facility]. provides no warranty or guarantee of the accuracy or completeness of information in this document."
== END | disposition home or self-care (01) ==
LOC: OPBI 07:16
PROVIDERS: PCP Internal Medicine; Referring Provider Internal Medicine; Visit Provider Internal Medicine
DX: Z12.31 Encounter for screening mammogram for malignant neoplasm of breast (principal)
CPT/HCPCS: 77063; 77067

== ENCOUNTER → 2025-08-13 | Outpatient (CLI) | payer OTHER, SELFPAY ==
--- NOTE | 2025-08-13 09:36 | BI_ITS ---
EXAM: DIAG MAMM W/CAD, UNILAT; LT BRST UNILAT ILDEFONSO ADD ON 08/13/2025 CLINICAL HISTORY: F, Age 50 y/o , ABD MAMM TECHNIQUE: Procedure Code: BIDMWCADU; BILTUNITOMO Modality: MG Procedure: DIAG MAMM W/CAD, UNILAT; LT BRST UNILAT ILDEFONSO ADD ON. COMPARISON: Prior exam(s) dated 08/09/2025, 08/06/2024, 08/05/2023. FINDINGS: TISSUE DENSITY: There are scattered areas of fibroglandular density. Unilateral Left Breast Mammographic Findings: Follow-up examination performed for the asymmetry in the left breast seen on examination of 08/09/2025. On the present examination, the asymmetry in the superior left breast at posterior depth does not persist. Otherwise, there are no suspicious findings in the left breast. BI/Lt Brst Unilat Ildefonso Add On IMPRESSION: There is no evidence of malignancy in the left breast. OVERALL FINAL ASSESSMENT BI-RADS 1: NEGATIVE RECOMMENDATION: Routine annual follow-up in 1 Year Additional Recommendation none A letter with findings and recommendations will be mailed to the patient. Reading Location: [id number]
--- NOTE | 2025-08-13 09:36 | BI_ITS ---
EXAM: DIAG MAMM W/CAD, UNILAT; LT BRST UNILAT ILDEFONSO ADD ON 08/13/2025 CLINICAL HISTORY: F, Age 50 y/o , ABD MAMM TECHNIQUE: Procedure Code: BIDMWCADU; BILTUNITOMO Modality: MG Procedure: DIAG MAMM W/CAD, UNILAT; LT BRST UNILAT ILDEFONSO ADD ON. COMPARISON: Prior exam(s) dated 08/09/2025, 08/06/2024, 08/05/2023. FINDINGS: TISSUE DENSITY: There are scattered areas of fibroglandular density. Unilateral Left Breast Mammographic Findings: Follow-up examination performed for the asymmetry in the left breast seen on examination of 08/09/2025. On the present examination, the asymmetry in the superior left breast at posterior depth does not persist. Otherwise, there are no suspicious findings in the left breast. BI/DIAG MAMM W/CAD, UNILAT IMPRESSION: There is no evidence of malignancy in the left breast. OVERALL FINAL ASSESSMENT BI-RADS 1: NEGATIVE RECOMMENDATION: Routine annual follow-up in 1 Year Additional Recommendation none A letter with findings and recommendations will be mailed to the patient. Reading Location: [id number]
== END | disposition home or self-care (01) ==
LOC: OPBI 09:28
PROVIDERS: PCP Internal Medicine; Referring Provider Internal Medicine; Visit Provider Internal Medicine
DX: R92.8 Other abnormal and inconclusive findings on diagnostic imaging of breast (principal)
CPT/HCPCS: 77061; 77065; G0279

== ENCOUNTER 2025-09-08 07:53 | Emergency (ER) | payer OTHER, SELFPAY ==
[2025-09-08 07:55] VITALS: BP 128/74; PULSE 98; RESP 16; TEMP 36.6; O2SAT 100; BMI 27.0
[2025-09-08 07:57] VITALS: BP 137/86; PULSE 90; RESP 16; TEMP 36.6; O2SAT 100
[2025-09-08] MEDS: 0.9% Normal Saline (1000mL) 1,000 ML 999 ML IV (08:17)
[2025-09-08 08:18] LABS: Hematocrit 39.9 % (37-47); Hemoglobin 13.6 g/dL (12.0-15.0); Immature Granulocytes Count 0.010 X10^3/uL (0.0-0.0); Mean Corp Hgb Conc 34.1 g/dL (32-36); Mean Corpuscular Volume 90.7 fL (81-99); Mean Platelet Vol. 8.7 fl (6.2-12.0); NRBC Flagged by Analyzer 0 % (0-5); Platelet Count 225 K/mm3 (150-450); RBC Distribution Width CV 11.9 % (11.6-14.6); RBC Distribution Width SD 39.5 fl (35.1-43.9); Red Blood Count 4.40 M/mm3 (4.2-5.4); White Blood Count 6.1 K/mm3 (4.4-11.0)
[2025-09-08 08:43] LABS: Anion Gap 9 (5-15); BUN 9 mg/dL (4-19); BUN/Creat Ratio 12.6 RATIO (10-20); Calcium,Total 9.5 mg/dL (7.6-11.0); Carbon Dioxide 25.8 mmol/L (21.0-32.0); Chloride 101 mmol/L (98-108); Estimated Creatinine Clearance 97.60 ml/min (50-250); Glucose 97 mg/dL (70-99); Potassium 3.9 mmol/L (3.3-5.1)
--- NOTE | 2025-09-08 08:50 | EX.ED.DYSGE1 ---
HPI History of Present Illness Chief Complaint: General Illness Detail of Chief Complaint: Patient presents with nausea vomiting diarrhea. Informant: patient Onset/Context/Timing Onset: Yesterday Context: Sudden Onset Timing: Intermittent Quality: Initially crampy pain now none Location: Generalized Current Severity: Gone Maximum Severity: Moderate Worsened by: When patient had vomiting diarrhea Relieved by: Not applicable Associated Symptoms Associated Symptoms: recent courses of antibiotics for urinary tract infection Narrative Narrative: Patient is a 50-year-old woman. She presents because of nausea, vomiting diarrhea with abdominal pain. This started last evening. She has vomited 3 times. She has had 9 loose stools with odor. She denies history of pseudomembranous enterocolitis. She is presently not on antibiotics. She initially was placed on an antibiotic. It was changed because the bacteria was resistant. She then was placed on a different course of antibiotics. She now presents with abdominal pain with nausea, vomiting diarrhea. She does report chills and subjective fever. She does endorse thirst and dry mouth. She denies orthostatic symptoms. She denies headache, visual, ocular auditory symptoms. She denies cardiac or respiratory symptoms. She presently denies urinary symptoms. She has not noted a rash. Prior similar symptoms: No Recent Illness/Hospitalization: Yes [facility] Medical History Left knee pain Wears glasses Alcohol use Migraine headache History of IBS Non-smoker History of echocardiogram History of stress test Encounter for screening colonoscopy Internal hemorrhoid Anxiety Home Medications ?Medication ?Instructions ?Recorded ?Last Taken ?Type citalopram 40 mg tablet 40 mg PO DAILY 03/29/22 Unknown History cholecalciferol (vitamin D3) 50 50 mcg PO DAILY 09/10/22 Unknown History mcg (2,000 unit) capsule (Vitamin D3) cyanocobalamin (vitamin B-12) 50 50 mcg PO DAILY 09/10/22 Unknown History mcg tablet (Vitamin B-12) magnesium 200 mg tablet 200 mg PO DAILY 09/10/22 Unknown History Allergy/AdvReac Type Severity Reaction Status Date / Time No Known Allergies Allergy Verified 09/08/25 07:55 Family History Father High blood cholesterol Mother Cancer Skin cancer Surgical History History of bladder suspension procedure History of laparoscopic cholecystectomy History of hemorrhoidectomy History of Social History household members: spouse Smoking Status: Never smoker alcohol intake: current substance use type: does not use ROS ROS ED Constitutional Constitutional ED: Reports chills, fever(s) and subjective; Denies sweats ENT ENT ED: Denies ear pain, rhinorrhea or sore throat Cardiovascular Cardiovascular: Denies chest pain Respiratory/Chest Respiratory/Chest: Denies cough, dyspnea or dyspnea on exertion Gastrointestinal Gastrointestinal: Reports abdominal pain, diarrhea, nausea and vomiting; Denies constipation or melena Genitourinary Genitourinary ED: Denies dysuria, hematuria or urinary frequency Musculoskeletal Musculoskeletal: Denies arthralgias, back pain or myalgias Integumentary Denies rash Neurologic Neurologic: Denies paresthesias or weakness Hematologic/Lymphatic Hematologic/Lymphatic: Reports systems reviewed and no addt'l complaints, except as documented EXAM Physical Exam Const Vital Signs: 09/08/25 07:55 09/08/25 07:57 09/08/25 08:04 Temperature 98 F 98 F Temperature Source Oral Oral Pulse Rate 98 90 Respiratory Rate 16 16 Respiratory Pattern Normal Blood Pressure 128/74 H 137/86 H Blood Pressure Mean 92 103 Pulse Ox 100 100 Oxygen Delivery Method Room Air Room Air 09/08/25 08:57 09/08/25 09:55 Temperature 98 F 98 F Temperature Source Oral Oral Pulse Rate 80 78 Respiratory Rate 12 12 Respiratory Pattern Blood Pressure 135/78 H 130/76 H Blood Pressure Mean 97 94 Pulse Ox 99 100 Oxygen Delivery Method Positive well nourished and well developed General Appearance ED: well developed and NAD; Negative for pallor HEENT Reports dry mucous membranes HEENT Narrative: Head is atraumatic and normocephalic. Ears are normal. Nares are patent. Posterior pharynx is normal. Mouth ED: Yes dry mucous membranes Mouth: dry mucous membranes Eyes PERRL and EOMs intact bilaterally General Eye ED: Negative for pale conjunctiva or scleral icterus Neck no lymphadenopathy and supple Resp normal respiratory effort and clear to auscultation bilaterally Cardio regular rate, regular rhythm, S1 normal heart sound, S2 normal heart sound and no murmurs GI non-distended and no masses; Negative for normal to inspection, nondistended, normoactive bowel sounds, non-tender or hepatosplenomegaly GI Narrative: Patient reports generalized tenderness but not pain to palpation. Auscultation: hypoactive bowel sounds Palpation: soft Back/Spine no CVA tenderness Neuro oriented x3, CN's II-XII intact bilaterally and no sensory deficits noted Sensorium / Orientation: alert Psych mental status grossly normal Skin no rashes or lesions noted, no wounds and skin turgor normal General Skin Exam: elasticity normal; Negative for jaundice or pallor MDM MDM MDM Narrative Medical decision making narrative: With patient having multiple episodes of diarrhea after several courses of antibiotics need to rule out pseudomembranous enterocolitis. This may represent a viral illness as well. Clinically she is dehydrated. She will receive 1 L of normal saline wide open. CBC was obtained as well as BMP and lactate for restratification if her stool is positive for C. difficile. There are no records available regarding her diagnosis of urinary tract infection or what antibiotic she was on. Lab Data Attestation: I reviewed the patient's lab results. Lab results narrative: CBC is unremarkable. There is a slight shift neutrophils. Basic metabolic panel is normal. Patient is not been able to produce a stool specimen since arrival, [id number] Labs: Laboratory Results - last 24 hr 09/08/25 09/08/25 08:11 09:05 WBC 6.1 RBC 4.40 Hgb 13.6 Hct 39.9 MCV 90.7 MCH 30.9 MCHC 34.1 RDW Std Deviation 39.5 RDW Coeff of Omid 11.9 Plt Count 225 MPV 8.7 Immature Gran % (Auto) 0.200 Neut % (Auto) 74.3 H Lymph % (Auto) 13.4 L Swain % (Auto) 9.9 Eos % (Auto) 1.7 Baso % (Auto) 0.5 Absolute Neuts (auto) 4.5 Absolute Lymphs (auto) 0.81 L Nucleated RBC % 0 Sodium 136 Potassium 3.9 Chloride 101 Carbon Dioxide 25.8 Anion Gap 9 BUN 9 Creatinine 0.71 Estim Creat Clear Calc 97.60 Est GFR (MDRD) Non-Af 103 BUN/Creatinine Ratio 12.6 Glucose 97 Calcium 9.5 Urine Color Yellow Urine Clarity Sl. Cloudy Urine pH 7.0 Ur Specific [place] 1.010 Urine Protein Negative Urine Glucose (UA) Normal Urine Ketones Negative Urine Occult Blood 10 H Urine Nitrite Negative Urine Bilirubin Negative Urine Urobilinogen Normal Ur Leukocyte Esterase Negative UA is unremarkable. Treatment and Re-Evaluation :: During exit interview patient asked if her urine could be tested. Since it has been sitting on the counter for some time we will assess macro for spec gravity, ketones. Discharge Plan Triage Chief Complaint: General Illness ED Provider: Giuliano Cristobal Dx/Rx/DC Orders Clinical Impression: Nausea, vomiting and diarrhea, Dehydration, mild, Generalized abdominal cramping, Elevated blood pressure reading without diagnosis of hypertension Instructions: ED Diet Vomiting Diarrhea, ED Hypertension, To Be Confirmed Prescriptions: No Action citalopram 40 mg tablet 40 mg PO DAILY Vitamin B-12 50 mcg Tablet 50 mcg PO DAILY magnesium 200 mg Tablet 200 mg PO DAILY cholecalciferol (vitamin D3) [Vitamin D3] 50 mcg (2,000 unit) Capsule 50 mcg PO DAILY Primary Care Provider: Michelle López Referrals: Michelle López MD [Primary Care Provider, Internal Medicine] - 3-5 Days if not improving Print Language: Faroese Disposition Disposition: Home, Self Care
[2025-09-08 08:57] VITALS: BP 135/78; PULSE 80; RESP 12; TEMP 36.6; O2SAT 99
[2025-09-08 09:55] VITALS: BP 130/76; PULSE 78; RESP 12; TEMP 36.6; O2SAT 100
[2025-09-08 11:10] LABS: Color, Urine Yellow (Yellow); Glucose, Dipstick Normal (Normal); Ketone-Dipstick Negative (Negative); Leukocyte Esterase-Dipstick Negative /ul (Negative); Nitrite-Dipstick Negative (Negative); Occult Blood-Urine 10 /ul (Negative); Protein-Dipstick Negative (Negative); Specific Gravity, Urine 1.010 (1.002-1.030); Urine Bilirubin Dipstick Negative (Negative)
[2025-09-08 11:33] VITALS: BP 105/79; PULSE 70; RESP 14; TEMP 36.6; O2SAT 99
== END 2025-09-08 11:35 | disposition home or self-care (01) ==
PROVIDERS: Emergency Provider Emergency Medicine; PCP Internal Medicine; Visit Provider Emergency Medicine
DX: R11.2 Nausea with vomiting, unspecified (principal); E86.0 Dehydration; R10.84 Generalized abdominal pain; R19.7 Diarrhea, unspecified; R03.0 Elevated blood-pressure reading, without diagnosis of hypertension; Z79.899 Other long term (current) drug therapy
CPT/HCPCS: 80048; 81002; 85025; 96360; 96361; 99283; A4216

== ENCOUNTER → 2025-10-09 | Outpatient (CLI) | payer OTHER, SELFPAY ==
--- OUTSIDE RECORDS SUMMARY | 2025-10-09 09:46 | XMS RPT_ITS | CCD ---
Author Organization [facility] Care Team Providers Care Manager Of Pharmacy Name Role Phone Carol Lebron MD Primary Care Provider POONAM Plascencia CNP, PROSPER Dwyer Primary Care Phys ician Carol Lebron MD Primary Care Provider Ceburyann, Dr. Dalton Dwyer Attending Provider Cewendy, Dr. Dalton Dwyer Other Provider Dr. Carol Lebron Primary Care Provider Dr. Carol Lebron Referring Provider HAILEE, DR FRANDY Durand Attending Jessea tiffanie BENSON, DR FRANDY Durand Primary Care Unavaila tiffanie BENSON, DR FRANDY Durand Admitting Unavaila Carol Mir MD Primary Care Provider Carol Lebron MD Primary Care Provider POONAM Plascencia CNP, PROSPER Dwyer Primary Care U hieu JOHNSON MD, DR MATTI Germain Attending Jesseabl e POONAM RENNER - PROSPER EASLEY Primary Care U hieu MARINO MD, ELAYNE Attending Unavailable Carol Lebron MD Primary Care Provider Rosanne Sykes PA-C Unavailable Older Silvina MILLAN Unavailable Katherine Tirado PA-C Unavailable Dr. Carol Lebron MD Primary Care Physician Dr. Carol Lebron MD Attending Physician Dr. Carol Lebron MD Referring Provider DR CAROL LEBRON MD Primary Care Physician GANTA, CAROL Attending Unavailable GANTA, CAROL Primary Care Unavailable BOGNER, KATHERINE Attending Unavailable GANTA, CAROL Primary Care Unavailable GENA THOMPSON Attending Unavailable GANTA, CAROL Primary Care Unavailable GANTA, CAROL Primary Care Unavailable ASHLEE MUNOZ Attending Unavailable GANTA, CAROL Primary Care Unavailable RADHA PHAM Attending Unavailable GANTA, CAROL Primary Care Unavailable BOGNER, KATHERINE Attending Unavailable GANTA, CAROL Primary Care Unavailable GANTA, CAROL Attending Unavailable GANTA, CAROL Primary Care Unavailable GANTA, CAROL Referring Unavailable GANTA, CAROL Primary Care Unavailable TAYJOSSIE RUBIO Attending Unavailable GANTA, CAROL Primary Care Unavailable BOGNER, KATHERINE Referring Unavailable GANTA, CAROL Primary Care Unavailable BHAMA, LITA Admitting Unavailable BHAMA, LITA Attending Unavailable GANTA, CAROL Primary Care Unavailable BHAMA, LITA Attending Unavailable GANTA, CAROL Primary Care Unavailable BOGNER, KATHERINE Referring Unavailable GANTA, CAROL Primary Care Unavailable GANTA, CAROL Attending Unavailable GANTA, CAROL Primary Care Unavailable GANTA, CAROL Referring Unavailable GANTA, CAROL Primary Care Unavailable GANTA, CAROL Attending Unavailable GANTA, CAROL Primary Care Unavailable JOVI KISER Attending Unavailable GANTA, CAROL Primary Care Unavailable AMANDA EWING Attending Unavailable GANTA, CAROL Primary Care Unavailable Ganta, Carol Primary Care Unavailable Ganta, Carol Referring Unavailable Ganta, Carol Attending Unavailable Ganta, Carol Primary Care Unavailable Ganta, Carol Referring Unavailable Ganta, Carol Attending Unavailable Ganta, Carol Primary Care Unavailable Giuliano Cristobal Attending Unavailable DR CAROL LEBRON MD Primary Care Unavailabl RIKY Serrano DO Attending Unavailable Dr. Carol Lebron MD Primary Care Physician Dr. Carol Lebron MD Attending Physician Dr. Carol Lebron MD Referring Provider Dr. Giuliano Cristobal MD Attending Physician [phone] Dr. Giuliano Cristobal MD Emergency Department Physician Allergies Allergy Classification Reported Allergen(s) Allergy Type Date of Onset Reaction(s) Facility (20 sources) Erythromycin; Translations: [erythromycin] Drug Allergy 10-15-[address] [facility] Work Phone: (20 sources) Honey; Translations: [HONEY] Propensity to adverse reactions 07-04-[address] [facility] Work Phone: Medications Current Medications Medication [...] Status: Ordered cholecalciferol 0.05 mg oral capsule (5 sources) Vitamin D Start: 09-10-2022 take 1 capsule by mouth once daily cholecalciferol, vitamin D3, (VITAMIN D3 ORAL) (20 [...] daily. 60 tablet 02/25/2025 04/05/2025 Discontinued Start: 07-31-2021 End: 02-23-2025 take 1 tablet by mouth once daily Start: 10-28-2020 End: 12-08-2021 take 1 tablet [...] ORAL) Take by mouth once daily. Active dicyclomine hydrochloride 10 mg oral capsule (1 source) Anticholinergic Start: End: dicyclomine 10 mg oral capsule Dose : 10 mg = 1 cap(s), Oral, QID, PRN abdominal discomfort, # 28 cap(s), 0 Refill(s) Start Date: 09/19/25 Stop Date: 09/26/25 Status: Ordered Medication Dispense Status: Completed Quantity: 28.0 Unit: cap(s) Total Allowed Fills: 1 Fills Dispensed: 0 docosahexaenoic acid/epa (FISH OIL ORAL) (9 sources) take 1000 mg by mouth once daily docosahexaenoic acid/epa (FISH OIL ORAL) Take 1,000 mg by mouth once daily. Active 84 hr estradiol 0.54619 mg/hr transdermal system (16 sources) Estrogen Start: 025 estradiol (VIVELLE-DOT) 0.075 mg/24 hr patch Use twice weekly on abdomen or buttock 24 Patch 3 12/02/2024 Active Estradiol Patch 0.0375 mg/24 hours twice weekly transdermal film, extended release (1 source) Start: 024 Estradiol Patch 0.0375 mg/24 hours twice weekly transdermal film, extended release Dose = 1 patch(es), Transdermal, 2x/Wk, apply to skin, # 8 patch(es), 0 Refill(s) Start Date: 04/02/24 Status: Ordered Ethinyl Estradiol / Norethindrone (20 sources) Estrogen Start: 025 take 1 tablet by mouth once daily, then take 0.05 tablet by mouth once Norethindrone Acet-Ethinyl Est (12/07, ,) 1-20 mg-mcg per tablet Take 1 tablet by mouth once daily. 63 tablet 3 04/05/2025 Active Start: 02-24-2025 take 1 tablet by kevin th once daily 12/07 oral tablet Dose = 1 tab(s), Oral, qDay, # 21 tab(s), 0 Refill(s), Pharmacy: [id number], 167.6, cm, 04/02/24 7:57:00 EDT, Height, kg, 04/02/24 7:57:00 EDT, Dosing Weight Start Date: 02/24/25 Status: Ordered Medication Dispense Status: Completed Quantity: 21.0 Unit: tab(s) Total Allowed Fills: 1 Fills Dispensed: 0 Start: 03-09-2024 take 1 tablet by kevin th once daily 12/07 oral tablet Dose = 1 tab(s), Oral, qDay, # 84 tab(s), 3 Refill(s), Pharmacy: [facility]/pharmacy #[id number], 166, cm, 03/09/24 15:00:00 EDT, [...] mouth once daily. 09/10/2022 Active Start: 09-10-2022 End: 04-07-2024 Norethindrone Ac-Eth Estradi ol 1-20 mg-mcg tablet Discontinued 1 {tbl} PO DAILY September 09, 2022 11:00pm April 07, 2024 8:36am Start: 09-10-2022 End: 04-07-2024 Norethindrone Ac-Eth Estradi ol 1-20 mg-mcg tablet Discontinued 1 {tbl} PO DAILY September 10, 2022 12:00am April 07, 2024 9:36am Start: 09-10-2022 take 1 tablet by kevin th once daily Norethindrone Ac-Eth Estradiol Active 1 TABLET PO DAILY September 10, 2022 12:00am Start: 08-02-2022 End: 01-17-2023 take 1 tablet by mouth once daily Loestrin 21 12/07 oral tablet Dose = 1 tab(s), Oral, qDay, # 84 tab(s), 1 Refill(s), Pharmacy: [facility], 166, cm, 08/02/22 9:40:00 EDT, Height, kg, 08/02/22 9:40:00 EDT, Dosing Weight Start Date: 08/02/22 Stop Date: 01/17/23 Status: Ordered Start: 07-31-2021 End: 01-15-2022 take 1 tablet by mouth once daily Loestrin 21 20 oral tablet Dose = 1 tab(s), Oral, qDay, # 84 tab(s), 1 Refill(s), Pharmacy: [facility], 167, cm, 07/31/21 10:48:00 EDT, Height, [...] 12/02/2024 Discontinued take 1 tablet by kevin once daily , 1-20 mg-mcg per tablet [...] on above: Take 1 capsule by mo [facility] daily at bedtime for 90 days. Take 1 capsule by mo [facility] daily at bedtime for 180 days. iv contrast (will be provided with radiology [...] attacks on ce or twice daily Magnesium (8 sources) Start: 2022 3 in 1 magnesium tablet 3 in 1 magnesium tablet, 0 Refill(s), 81.3 Start Date: 10/17/23 Status: Ordered Medication Dispense Status: Completed Total Allowed Fills: 1 Fills Dispensed: 0 Start: 10-17-2023 3 in 1 magnesi um tablet 3 in 1 magnesium tablet, 0 Refill(s), 81.3 Start Date: 10/17/23 Status: Ordered Start: 09-10-2022 take 1 tablet by kevin th once daily Start: 09-10-2022 take 1 tablet by kevin th once daily Start: 09-10-2022 take 200 mg by mouth once ghassan y Magnesium Active 200 MG PO DAILY September 10, 2022 12:00am magnesium carb,citrate,oxide (MAGNESIUM COMPLEX ORAL) (20 sources) magnesium carb,citrate,oxide (MAGNESIUM COMPLEX ORAL) Take by mouth once daily. Active meclizine hydrochloride 25 mg oral tablet (20 sources) Antiemetic Start: End: take 1 tablet by mouth once [...] Comment on above: Take 1 capsule by [facility] twice daily for 7 days. nutritional supplement (3 sources) Start: 06-17-2023 nutritional supplement Probiotic and prebiotic gummy, 0 Refill(s) Start Date: 06/17/23 Status: Ordered Medication Dispense Status: Completed Total Allowed Fills: 1 Fills Dispensed: 0 Start: 06-17-2023 nutritional [place]illa pplement Probiotic and prebiotic gummy, 0 Refill(s) Start Date: 06/17/23 Status: Ordered ondansetron 4 mg oral tablet (9 sources) Serotonin-3 Receptor Antagonist Start: 09-19-2025 End: 09-24-2025 Zofran 4 mg oral tablet Dose : 4 mg = 1 tab(s), Oral, q6h, PRN Nausea/Vomiting, X 5 day(s), # 20 tab(s), 0 Refill(s), 09/24/25 6:19:00 PM EST Start Date: 09/19/25 Stop Date: 09/24/25 Status: Ordered Medication Dispense Status: Completed Quantity: 20.0 Unit: tab(s) Total Allowed Fills: 1 Fills Dispensed: 0 Start: 04-05-2025 take 1 tablet by kevin th every eight hours as needed ondansetron (ZOFRAN) [...] in mouth. 8 tablet 5 07/14/2025 Active rizatriptan 10 mg oral tablet (20 sources) Serotonin-1b and Serotonin-1d Receptor Agonist Start: 05-03-20 End: 11-10-20 rizatriptan 10 mg oral tablet Dose : 10 mg = 1 tab(s), Oral, Once, PRN as needed for migraine headache, # 12 tab(s), 0 Refill(s) Start Date: 05/06/23 Status: Ordered Medication Dispense Status: Completed Quantity: 12.0 Unit: tab(s) Total Allowed Fills: 1 Fills Dispensed: 0 Start: 10-25-2021 End: 04-13-2025 take 1 tablet [...] Do not exceed 20 mg per day. valACYclovir 500 mg oral tablet (20 sources) Herpesvirus Nucleoside Analog DNA Polymerase Inhibitor, Herpes Simplex Virus Nucleoside Analog DNA Polymerase Inhibitor, Herpes Zoster Virus Nucleoside Analog DNA Polymerase Inhibitor Start: 3 take 4 tablets by mouth twice daily valACYclovir 500 mg oral tablet TAKE 4 TABLETS BY MOUTH TWICE A DAY FOR 1 DAY AT EARLIEST ONSET OF SYMPTOMS Start Date: 05/06/23 Status: Ordered Medication Dispense Status: Completed Total Allowed Fills: 1 Fills Dispensed: 0 Start: 01-09-2021 End: 11-17-2024 valACYclovir (VALTREX) 500 m g tablet At earliest onset of symptoms take 2 gms , 2 times a day for 1 day 8 tablet 3 11/17/2024 Active Comment on above: At earliest onset of symptoms take 2 gms , 2 times a day for 1 day Vitamin B Complex with C oral tablet (3 sources) Start: 10-17-2023 take 1 tablet by mouth once daily Vitamin B Complex with C oral tablet Oral, qDay, 0 Refill(s) Start Date: 10/17/23 Status: Ordered Medication Dispense Status: Completed Total Allowed Fills: 1 Fills Dispensed: 0 Start: 10-17-2023 Vitamin B Comp yasemin with C oral tablet Oral, qDay, 0 Refill(s) Start Date: 10/17/23 Status: Ordered vitamin b12 0.05 mg oral tablet (5 sources) Vitamin B12 Start: 09-10-2022 take 1 tablet by mouth once daily Vitamin D and K oral tablet (3 sources) Start: 10-17-2023 take 1 tablet by mouth once Vitamin D and K oral tablet 0 Refill(s) Start Date: 10/17/23 Status: Ordered Medication Dispense Status: Completed Total Allowed Fills: 1 Fills Dispensed: 0 Start: 10-17-2023 Vitamin D and K oral tablet 0 Refill(s) Start Date: 10/17/23 Status: Ordered Vitamin E (3 sources) Start: 09-02-2023 vitamin E Oral , 0 Refill(s) Start Date: 09/02/23 Status: Ordered Medication Dispense Status: Completed Total Allowed Fills: 1 Fills Dispensed: 0 Start: 09-02-2023 vitamin E Oral , 0 Refill(s) Start Date: 09/02/23 Status: Ordered [...] Comment on above: Take 2 tablets by mo [facility] every 6 hours as needed for pain. [...] on above: Take 1 capsule by mo [facility] twice daily. FLUoxetine 40 mg oral capsule (7 sources) Serotonin Reuptake Inhibitor Start: 04-18-2022 End: 05-07-2022 take 1 capsule by mouth once daily FLUoxetine (PROZAC) 40 mg capsule Take 1 capsule by mouth once daily. 30 capsule 11 04/20/2022 05/07/2022 Discontinued (Side Effects) Comment on above: Take 1 capsule by [facility] once daily. hydrocortisone acetate 25 mg rectal suppository (11 sources) Corticosteroid Start: 03-29-2022 End: 04-07-2024 Hydrocortisone Acetate 25 mg suppository Discontinued 25 mg RC TWICE A DAY as needed for HEMORROIDS September 10, 2022 10:59am April 07, 2024 8:36am ibuprofen 600 mg oral tablet (11 sources) [...] above: Take 1 tablet by kevin th daily with breakfast. naratriptan 1 mg oral [...] day prior to cycle). polyethylene glycol 3350 [id number] mg / potassium chloride 2970 mg / sodium bicarbonate 6740 mg / sodium chloride 5860 mg / sodium sulfate 90532 mg powder for oral solution (20 sources) Osmotic Laxative Start: 02-08-20 End: 12-07-19 peg 3350-Electrolytes (GOLYTELY) 236-22.74-6.74 -5.86 gram suspension Indications: Colon cancer screening Refer to printed prep instructions from your provider. 4000 mL 0 02/07/2022 12/07/2022 Discontinued Comment on above: Refer to printed pre p instructions from your provider. topiramate 25 mg oral tablet (20 sources) Start: 10-01-20 End: 12-07-19 take 1 tablet by mouth once daily, [...] Refill(s) Start Date: 08/02/22 Status: Ordered Start: 03-29-2022 End: 04-07-2024 take 2 tablets by mouth at bedtime Topiramate 25 mg tablet Discontinued 50 mg PO AT BEDTIME March 28, 2022 11:00pm April 07, 2024 8:36am Start: 03-29-2022 take 50 mg by mouth [...] Abdominal pain; Translations: [Unspecified abdominal pain] Onset: 3 Resolved: 1 11-24-2020 Episodic Administrative/social admission (2 sources) Education and/or schooling finding; Translations: [Problems related to education and literacy, unspecified] Episodic Anxiety disorders (20 sources) Anxiety; Translations: [Anxiety disorder, unspecified] Onset: 1 11-24-2020 Chronic Diseases of white blood cells (5 sources) White blood cell count abnormal; Translations: [Disorder of white blood cells, unspecified] Onset: 5 01-20-2025 Chronic Disorders of lipid metabolism (2 sources) Hypercholesterolemia; Translations: [Pure hypercholesterolemia, unspecified] Onset: 4 11-17-2024 Chronic Endometriosis (20 sources) Endometriosis (clinical); Translations: [Endometriosis, unspecified] 11-21-2005 Chronic Esophageal disorders (20 sources) Gastroesophageal reflux disease; Translations: [Gastro-esophageal reflux disease without esophagitis] Onset: 3 09-07-2013 Chronic Fluid and electrolyte disorders (1 source) Mild dehydration; Translations: [Dehydration] 09-16-2025 Episodic Genitourinary symptoms and ill-defined conditions (2 sources) Female stress incontinence; Translations: [Stress incontinence (female) (male)] Chronic Genitourinary symptoms and ill-defined conditions (4 sources) Increased frequency of urination; Translations: [Frequency of micturition] Onset: 5 Episodic Headache; including migraine (20 sources) Migraine; Translations: [Migraine, unspecified, not intractable, without status migrainosus] Onset: 5 07-31-2021 Chronic Immunizations and screening for infectious disease (1 source) Encounter for immunization; Translations: [Encounter for immunization] Onset: 5 Episodic Malaise and fatigue (1 source) Fatigue; Translations: [Other fatigue] 07-16-2024 Episodic Menopausal disorders (5 sources) Menopause finding; Translations: [Perimenopausal state] 05-06-2023 Chronic Menstrual disorders (20 sources) Irregular periods; Translations: [Irregular menstruation, unspecified] Resolved: 2 12-26-2023 Chronic Nausea and vomiting (3 sources) Nausea; Translations: [Nausea] Onset: Episodic Other aftercare (3 sources) Drug therapy status 06-17-2023 Episodic Other aftercare (1 source) Surgical follow-up; Translations: [Encounter for follow-up examination after completed treatment for conditions other than malignant neoplasm] 12-07-2024 Episodic Other aftercare (1 source) Long-term current use of hormonal contraceptive; 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] 04-05-2025 Episodic Other circulatory disease (1 source) Elevated blood-pressure reading without diagnosis of hypertension; Translations: [Elevated blood-pressure reading, without diagnosis of hypertension] 09-16-2025 Episodic Other connective tissue disease (1 source) Pain in limb; Translations: [Pain in unspecified limb] Onset: 4 Episodic Other connective tissue disease (2 sources) Pain in lower limb 04-02-2024 Episodic Other connective tissue disease (1 source) Bilateral ganglion cyst of wrists; Translations: [Ganglion, right wrist] 11-24-2020 Episodic Other gastrointestinal disorders (5 sources) History of diverticulitis 07-24-2019 Episodic Other gastrointestinal disorders (1 source) Diarrhea; Translations: [Diarrhea, unspecified] Onset: 5 Episodic Other gastrointestinal disorders (2 sources) Diarrhea, unspecified; Translations: [Diarrhea, unspecified type] Onset: 5 Episodic Other lower respiratory disease (2 sources) Cough; Translations: [Acute cough] 09-09-2024 Episodic Other nervous system disorders (1 source) H/O: migraine; Translations: [Personal history of other diseases of the nervous system and sense organs] Episodic Other non-traumatic joint disorders (1 source) Bilateral wrist pain; Translations: [Pain in right wrist] 11-24-2020 Episodic Other non-traumatic joint disorders (3 sources) Pain in left knee; Translations: [Left knee pain] 04-07-2024 Episodic Other nutritional; endocrine; and metabolic disorders (5 sources) Overweight 07-24-2019 Episodic Other nutritional; endocrine; and metabolic disorders (1 source) Weight increased; Translations: [Abnormal weight gain] 12-02-2024 Episodic Other nutritional; endocrine; and metabolic disorders (1 source) Abnormal weight gain; Translations: [Abnormal weight gain] 12-16-2024 Episodic Other screening for suspected conditions (not mental disorders or infectious disease) (13 sources) Patient encounter status; Translations: [Encounter for screening for malignant neoplasm of colon] Onset: 5 Episodic Other skin disorders (1 source) Eruption; [...] sources) Neck pain; Translations: [Cervicalgia] Episodic Unclassified (10 sources) Patient encounter status 07-27-2019 Unclassified (5 sources) Screening status 07-27-2019 Urinary tract infections (1 source) Acute cystitis with hematuria; Translations: [Acute cystitis with hematuria] Onset: Episodic Past or Other Problems Problem Classification Problem Date Documented Da te Episodic/Chronic Anal and rectal conditions (2 sources) Anal fissure; Translations: [Anal fissure, unspecified] Onset: 02-04-2025 02-04-2025 Episodic Biliary tract disease (20 sources) Biliary dyskinesia; Translations: [Other specified diseases of gallbladder] Onset: 10-30-2013 Resolved: 11-24-2020 11-24-2020 Episodic Conditions associated with dizziness or vertigo (20 sources) Dizziness and giddiness; Translations: [Dizziness and giddiness] Onset: 05-02-2022 Episodic Headache; including migraine (2 sources) Thunderclap headache; Translations: [Primary thunderclap headache] Onset: 11-17-2024 11-17-2024 Episodic Hemorrhoids (12 sources) Hemorrhoids; Translations: [Unspecified hemorrhoids] Onset: 10-23-2024 Episodic Other aftercare (1 source) 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 09-20-2025 CNOV Office Visit (INTMWS ) KATE REED ([id number]) 1975 F Date Time Provider Department 09/20/25 11:40 AM CAROL LEBRON INTMWS During your visit today, we recorded the following information about you: Temperature Pulse Respiration Blood pressure 99.5 degrees 110/minute 16/minute 116/74 Weight Last Period 73.8 kg 09/15/25 Carol Lebron MD 09/20/2025 1:09 PM Signed Reason for Visit Diarrhea, er follow up HPI Kate Reed is a 50-year-old female, with a history of vertigo, presenting with persistent nausea, emesis, diarrhea, and abdominal cramping. Kate reports a 4-week history of persistent nausea, emesis, diarrhea, and abdominal cramping, which began after completing a course of antibiotics for a UTI. She was initially prescribed Bactrim, which was later changed to Keflex. Since completing the antibiotics, she has experienced intermittent episodes of emesis and diarrhea, accompanied by abdominal cramping. She also reports a sour taste in her mouth and heartburn. She notes that her symptoms have been more severe in the past month, leading to significant weight loss of approximately 20 lbs and missing 8 days of work. She denies any changes in diet or recent travel outside the country. Kate has been taking semaglutide since May and initially experienced nausea and emesis with the first dose, but has since tolerated it well. She denies any recent changes in her medication regimen, which includes Celexa, gabapentin for vertigo, Junel control, magnesium, vitamin D, and a prebiotic/probiotic supplement. She has been using Zofran and Imodium to manage her symptoms, with some relief. She has sought medical attention multiple times, including visits to the ER at [facility] and [facility]. She reports that the care at [facility] was more thorough, and she underwent extensive testing, including stool samples. She is awaiting results from these tests. 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 SOCIAL HISTORY[1] Past medical history, appointments, medications, allergies reviewed. Pertinent Lab/Diagnostic Studies are reviewed and discussed today Current Outpatient Medications: gabapentin (NEURONTIN) 300 mg capsule Norethindrone Acet-Ethinyl Est (,) 1-20 mg-mcg per tablet citalopram (CELEXA) 20 mg tablet MEDICATION, NON-DATABASE B.animalis,bifid,infan tis,long (PROBIOTIC 4X ORAL) valACYclovir (VALTREX) 500 mg tablet cholecalciferol, vitamin D3, (VITAMIN D3 ORAL) magnesium carb,citrate,oxide (MAGNESIUM COMPLEX ORAL) pantoprazole DR (PROTONIX) 40 mg tablet semaglutide (OZEMPIC) 0.25 mg or 0.5 mg (2 mg/3 mL) pen phenazopyridine (PYRIDIUM) 100 mg tablet rimegepant (NURTEC ODT) 75 mg disintegrating tablet ondansetron (ZOFRAN) 4 mg tablet MEDICATION, NON-DATABASE ASHWAGANDHA EXTRACT ORAL MEDICATION, NON-DATABASE MEDICATION, NON-DATABASE NIFEdipine rectal ointment 0.2% (CPD) cyanocobalamin, vitamin B-12, (VITAMIN B-12 ORAL) meclizine (ANTIVERT) 25 mg tab Health Maintenance Pneumococcal Vaccine: 50+(1 of 1 - PCV) Shingrix Vaccine(2 of 2)@ Review Of Systems Constitutional: (+) chills, (+) myalgias, (+) unintentional weight loss Gastrointestinal: (+) diarrhea, (+) vomiting, (+) nausea, (+) abdominal cramping, (+) abdominal tenderness, (+) heartburn, (+) sour taste in mouth, (+) rectal bleeding, (+) belching, (-) abdominal pain Physical Exam BP 116/74 Pulse 110 Temp 37.5 ?C (99.5 ?F) (Temporal) Resp 16 Wt 73.8 kg (162 lb 9.6 oz) LMP 09/15/2025 (Exact Date) SpO2 99% BMI 26.24 kg/m? GENERAL: NAD, alert and oriented. SKIN: Unremarkable, no rash or skin lesions. HEAD: Normocephalic. EYES: PERRLA, EOMI, conjunctiva clear. LUNGS: Clear to auscultation bilaterally, no wheezes/rhonchi/rales. HEART: Regular rate and rhythm, no murmurs. No ectopy. EXTREMITIES: Normal, no deformities, no skin discoloration, no edema. ABDOMEN: Soft, mildly tender, decreased bowel sounds. NEURO: Awake, alert and oriented x3, cranial nerves II-XII grossly intact, normal gait, no involuntary motions. Labs: - C. difficile PCR (stool): Negative - CBC with differential: Neutrophilia; Lymphopenia; Monocytosis - CMP: Bilirubin not concerning; eGFR not concerning Assessment and Plan 1. Diarrhea, unspecified type (R19.7) 2. Nausea and vomiting, unspecified vomiting type (R11.2) Symptoms began after antibiotic treatment for UTI (Bactrim followed by Keflex); C. diff PCR negative; currently taking Zofran and Imodium; differential includes post-antibiotic GI disturbance and viral gastroenteritis. - Order stool OANDP and lactoferrin. - Continue Zofran and Imodium as needed. - Advised to discontinue semaglutide for one month. - Start Align probiotic. - Follow-up in (more content not included)... Normal [facility] FECAL LACTOFERRIN/LEUKOCYTES on 09-20-2025 Lactoferrin IA Ql (Stl) Positive for lactoferrin, which may indicate presence of fecal white blood cells Abnormal Negative [facility] Comment on above: Order Comment: Speci men Type: STOOL SPECIMENOrdering Facility: [facility] Address: [address] [place] [address] Performed By: #### F ECWBC ####[facility] LABCLIA [id number] [place] [address] [place] O+P Spec Microon 09-20-2025 Ova and parasites identified LM Nom (Unsp spec) OVA AND PARASITE EXAM: No Parasites Seen Normal [facility] Comment on above: Performed By: #### 6 73-4 ####[facility] LABCLIA [id number] [address] [place] STGIPCRon 09-20-2025 E. coli O157 Not Applicable Normal Not Detected [facility] Comment on above: Performed By: #### S TGIPCR #### [facility] [address] [place] [address] Adenovirus F 40/41 Not detected Normal Not Detected [facility] Comment on above: Performed By: #### S TGIPCR #### [facility] [address] [place], [place] [address] Astrovirus Not detected Normal Not Detected [facility] Comment on above: Performed By: #### S TGIPCR #### [facility] [address] [place] [address] Campy (jejuni/coli/ups) Not detected Normal Not Detected [facility] Comment on above: Performed By: #### S TGIPCR #### [place] [address] Cryptosporidium Not detected Normal Not Detected [facility] Comment on above: Performed By: #### S TGIPCR #### [facility] [address] [place] [address] Cyclospora Not detected Normal Not Detected [facility] Comment on above: Performed By: #### S TGIPCR #### [place] [address] E. coli (ETEC) Not detected Normal Not Detected [facility] Comment on above: Performed By: #### S TGIPCR #### [place] [address] Entamoeba histolytica Not detected Normal Not Detected [facility] Comment on above: Performed By: #### S TGIPCR #### [facility] [address] [place], [place] [phone] Enteroaggregative E. coli (EAEC) Not detected Normal Not Detected [facility] Comment on above: Performed By: #### S TGIPCR #### [facility] [address] [place], [place] [id number] Enteropathogenic E. coli (EPEC) Not detected Normal Not Detected [facility] Comment on above: Performed By: #### S TGIPCR #### [place] [address] Giardia lamblia Not detected Normal Not Detected [facility] Comment on above: Performed By: #### S TGIPCR #### [place] [address] Norovirus GI/GII Not detected Normal Not Detected [facility] Comment on above: Performed By: #### S TGIPCR #### [place] [address] Plesiomonas shigelloides Not detected Normal Not Detected [facility] Comment on above: Performed By: #### S TGIPCR #### [place] [address] Rotavirus A Not detected Normal Not Detected [facility] Comment on above: Performed By: #### S TGIPCR #### [place] [address] Salmonella species, stool Not detected Normal Not Detected [facility] Comment on above: Performed By: #### S TGIPCR #### [place] [address] Sapovirus I,II,IV,V Not detected Normal Not Detected [facility] Comment on above: Performed By: #### S TGIPCR #### [place] [address] Shig Tox E. coli (STEC) Not detected Normal Not Detected [facility] Comment on above: Performed By: #### S TGIPCR #### [place] [address] Shigella/Enteroinvasive E. coli (EIEC) Not detected Normal Not Detected [facility] Comment on above: Performed By: #### S TGIPCR #### [place] [address] Stool GI Comment See Comment Normal [facility] Comment on above: Result Comment: Viru s, bacteria, and parasite nucleic acid may persist in vivo independently of organism viability. Negative Film Array GI panel results in the setting of clinical illness compatible with gastroenteritis may be due to infection by pathogens that are not detected by this test. False negatives may occur due to genetic variability in the region targeted by the primers. Performed By: #### S TGIPCR #### [place] [address] Vibrio cholerae Not detected Normal Not Detected [facility] Comment on above: Performed By: #### S TGIPCR #### [place] [address] Vibrio par/vul/chol Not detected Normal Not Detected [facility] Comment on above: Performed By: #### S TGIPCR #### [place] [address] Yersinia enterocolitica Not detected Normal Not Detected [facility] Comment on above: Performed By: #### S TGIPCR #### [place] [address] .Auto Diffon 09-19-2025 Basophil, Absolute 0.0 10 3/mcL Normal 0.0-0.3 [facility] Comment on above: Performed By: #### G FR, CBC, ADIFF, LIP, MDW, CMP, ANEU #### [address] [address] Basophils/100 WBC (Bld) 0.1 % Normal 0.0-2.5 [facility] Comment on above: Performed By: #### G FR, CBC, ADIFF, LIP, MDW, CMP, ANEU #### [address] [address] Eosinophil, Absolute 0.1 10 3/mcL Normal 0.0-0.7 [facility] Comment on above: Performed By: #### G FR, CBC, ADIFF, LIP, MDW, CMP, ANEU #### [address] [address] Eosinophils/100 WBC (Bld) 1.2 % Normal 0.0-6.0 [facility] Comment on above: Performed By: #### G FR, CBC, ADIFF, LIP, MDW, CMP, ANEU #### [address] [address] Lymphocyte, Absolute 0.6 10 3/mcL Low 0.9-4.3 [facility] Comment on above: Performed By: #### G FR, CBC, ADIFF, LIP, MDW, CMP, ANEU #### [address] [address] Lymphocytes/100 WBC (Bld) 6.3 % Low 20.0-40.0 [facility] Comment on above: Performed By: #### G FR, CBC, ADIFF, LIP, MDW, CMP, ANEU #### [address] [address] Monocyte, Absolute 0.7 10 3/mcL Normal 0.1-1.4 [facility] Comment on above: Performed By: #### G FR, CBC, ADIFF, LIP, MDW, CMP, ANEU #### [address] [address] Monocytes/100 WBC (Bld) 7.8 % Normal 2.0-13.0 [facility] Comment on above: Performed By: #### G FR, CBC, ADIFF, LIP, MDW, CMP, ANEU #### [address] [address] Neutrophils/100 WBC (Bld) 84.6 % High 50.0-75.0 [facility] Comment on above: Performed By: #### G FR, CBC, ADIFF, LIP, MDW, CMP, ANEU #### [address] [address] .GFRon 09-19-2025 Estimated Glomerular Filtration Rate 87 ml/min/1.73sqm Normal [facility] Comment on above: Result Comment: Stages of Chronic Kidney Disease (CKD) Stage Description eGFR(ml/min/1.73 sq.m.) CKD 1 Normal kidney function or >=90 normal kindney function with possible kidney damage (ex. Proteinuria) CKD 2 Kidney damage with mild loss 60-89 of kidney function CKD 3a Mild to moderate loss of kidney 45-59 function CKD 3b Moderate to severe loss of 30-44 of kindey function CKD 4 Severe loss of kidney function 15-29 CKD 5 Kidney failure <15 Note: (go live 2024) the eGFR calculation was updated to the 2020 CKD-EPI creatinine equation without a race factor to calculate the eGFR results. Performed By: #### G FR, CBC, ADIFF, LIP, MDW, CMP, ANEU #### [address] [address] .MDWon 09-19-2025 Monocyte Distribution Width 27.61 High 0.00-20.00 [facility] Comment on above: Result Comment: For adults in ED, MDW>20.0 may be associated with a higher risk of sepsis during the first 12hrs of hospital admission Performed By: #### G FR, CBC, ADIFF, LIP, MDW, CMP, ANEU #### [address] [address] .NEUABSon 09-19-2025 Neutrophil, Absolute 7.8 10 3/mcL Normal 2.3-8.1 [facility] Comment on above: Performed By: #### G FR, CBC, ADIFF, LIP, MDW, CMP, ANEU #### [address] [address] CBCon 09-19-2025 Erythrocyte distribution width (RBC) [Ratio] 13.0 % Normal 11.5-15.5 [facility] Comment on above: Performed By: #### G FR, CBC, ADIFF, LIP, MDW, CMP, ANEU #### [place] [address] Hematocrit (Bld) [Volume fraction] 43.9 % Normal 34.0-46.0 [facility] Comment on above: Performed By: #### G FR, CBC, ADIFF, LIP, MDW, CMP, ANEU #### [place] [address] Hgb 15.3 G/dL Normal 12.0-16.0 [facility] Comment on above: Performed By: #### G FR, CBC, ADIFF, LIP, MDW, CMP, ANEU #### [place] [address] MCH (RBC) [Entitic mass] 31.7 pg Normal 27.0-33.0 [facility] Comment on above: Performed By: #### G FR, CBC, ADIFF, LIP, MDW, CMP, ANEU #### [address] [address] MCHC 34.8 G/dL Normal 32.0-36.0 [facility] Comment on above: Performed By: #### G FR, CBC, ADIFF, LIP, MDW, CMP, ANEU #### [address] [address] MCV (RBC) [Entitic vol] 91.2 fL Normal 80.0-99.0 [facility] Comment on above: Performed By: #### G FR, CBC, ADIFF, LIP, MDW, CMP, ANEU #### [place] [address] Platelet 278 10 3/mcL Normal 150-450 [facility] Comment on above: Performed By: #### G FR, CBC, ADIFF, LIP, MDW, CMP, ANEU #### [place] [address] Platelet mean volume (Bld) [Entitic vol] 7.0 fL Normal 6.6-10.5 [facility] Comment on above: Performed By: #### G FR, CBC, ADIFF, LIP, MDW, CMP, ANEU #### [place] [id number] RBC 4.81 10 6/mcL Normal 4.10-5.30 [facility] Comment on above: Performed By: #### G FR, CBC, ADIFF, LIP, MDW, CMP, ANEU #### [place] [id number] WBC 9.2 10 3/mcL Normal 4.5-10.8 [facility] Comment on above: Performed By: #### G FR, CBC, ADIFF, LIP, MDW, CMP, ANEU #### [place] [address] CDIFPCRon 11-02-2025 Clostridium difficile PCR Negative Normal Negative [facility] Comment on above: Performed By: #### C DIFPCR #### [address] [address] Clostridium difficile PCR Int See Below Normal [facility] Comment on above: Result Comment: Clinical Interpretation: No tcdB gene DNA detected. Negative test results may occur from improper collection, handling or storage of specimen, technical error, or extremely low levels of target below the limit of detection of the assay. Performed By: #### C DIFPCR #### [address] [address] CMPon 09-19-2025 Albumin Level 3.8 G/dL Normal 3.5-5.0 [facility] Comment on above: Performed By: #### G FR, CBC, ADIFF, LIP, MDW, CMP, ANEU #### [address] [address] Albumin/Globulin [Mass ratio] 1.0 {ratio} Low 1.1-2.5 [facility] Comment on above: Performed By: #### G FR, CBC, ADIFF, LIP, MDW, CMP, ANEU #### [address] [address] ALP [Catalytic activity/Vol] 124 U/L Normal 40-135 [facility] Comment on above: Performed By: #### G FR, CBC, ADIFF, LIP, MDW, CMP, ANEU #### [address] [address] ALT [Catalytic activity/Vol] 39 U/L Normal 14-59 [facility] Comment on above: Performed By: #### G FR, CBC, ADIFF, LIP, MDW, CMP, ANEU #### [address] [address] AST [Catalytic activity/Vol] 26 U/L Normal 10-40 [facility] Comment on above: Performed By: #### G FR, CBC, ADIFF, LIP, MDW, CMP, ANEU #### [address] [address] Bili Total 0.4 mg/dL Normal 0.2-1.0 [facility] Comment on above: Result Comment: Use of this assay is not recommended for patients undergoing treatment with eltrombopag due to the potential for falsely elevated results. Performed By: #### G FR, CBC, ADIFF, LIP, MDW, CMP, ANEU #### [address] [address] BUN/Creatinine Ratio 18 ratio Normal 7-27 [facility] Comment on above: Performed By: #### G FR, CBC, ADIFF, LIP, MDW, CMP, ANEU #### [address] [address] Calcium [Mass/Vol] 9.0 mg/dL Normal 8.4-10.2 [facility] Comment on above: Performed By: #### G FR, CBC, ADIFF, LIP, MDW, CMP, ANEU #### [address] [address] Chloride [Moles/Vol] 102 mmol/L Normal 98-107 [facility] Comment on above: Performed By: #### G FR, CBC, ADIFF, LIP, MDW, CMP, ANEU #### [address] [address] CO2 [Moles/Vol] 24 mmol/L Normal 22-29 [facility] Comment on above: Performed By: #### G FR, CBC, ADIFF, LIP, MDW, CMP, ANEU #### [address] [address] Creatinine [Mass/Vol] 0.82 mg/dL Normal 0.51-0.95 [facility] Comment on above: Performed By: #### G FR, CBC, ADIFF, LIP, MDW, CMP, ANEU #### [address] [address] Electrolyte Balance 11.0 mEq/L Normal 4.0-15.0 [facility] Comment on above: Performed By: #### G FR, CBC, ADIFF, LIP, MDW, CMP, ANEU #### [address] [address] Globulin 3.8 G/dL Normal 2.7-4.4 [facility] Comment on above: Performed By: #### G FR, CBC, ADIFF, LIP, MDW, CMP, ANEU #### [address] [address] Glucose [Mass/Vol] 91 mg/dL Normal 70-105 [facility] Comment on above: Performed By: #### G FR, CBC, ADIFF, LIP, MDW, CMP, ANEU #### [address] [address] Potassium [Moles/Vol] 3.6 mmol/L Normal 3.5-5.1 [facility] Comment on above: Performed By: #### G FR, CBC, ADIFF, LIP, MDW, CMP, ANEU #### [address] [address] Sodium [Moles/Vol] 137 mmol/L Normal 136-145 [facility] Comment on above: Performed By: #### G FR, CBC, ADIFF, LIP, MDW, CMP, ANEU #### [address] [address] Total Protein 7.6 G/dL Normal 6.4-8.2 [facility] Comment on above: Performed By: #### G FR, CBC, ADIFF, LIP, MDW, CMP, ANEU #### [address] [address] Urea nitrogen [Mass/Vol] 15 mg/dL Normal 7-18 [facility] Comment on above: Performed By: #### G FR, CBC, ADIFF, LIP, MDW, CMP, ANEU #### [address] [address] LABORATORYOrdered By: SYSTEM SYSTEM on 09-19-2025 Albumin BCP dye [Mass/Vol] 3.8 G/dL Normal 3.5 - 5.0 G/dL AO ADM SS Albumin/Globulin [Mass ratio] 1.0 {ratio} Low 1.1 - 2.5 ratio AO ADM SS ALP [Catalytic activity/Vol] 124 U/L Normal 40 - 135 U/L AO ADM SS ALT With P-5'-P [Catalytic activity/Vol] 39 U/L Normal 14 - 59 U/L AO ADM SS AST With P-5'-P [Catalytic activity/Vol] 26 U/L Normal 10 - 40 U/L AO ADM SS Basophils (Bld) [#/Vol] 0.0 103/mcL Normal 0.0 - 0.3 10^3/mcL AO Workflow SS Basophils/100 WBC (Bld) 0.1 % Normal 0.0 - 2.5 % AO Workflow SS Bilirubin [Mass/Vol] 0.4 mg/dL Normal 0.2 - 1 .0 mg/dL AO ADM SS Comment on above: Interpretive Data: U se of this assay is not recommended for patients undergoing treatment with eltrombopag due to the potential for falsely elevated results. Calcium [Mass/Vol] 9.0 mg/dL Normal 8.4 - 10. 2 mg/dL AO ADM SS Chloride [Moles/Vol] 102 mmol/L Normal 98 - 10 7 mmol/L AO ADM SS CO2 [Moles/Vol] 24 mmol/L Normal 22 - 29 mmol/L AO ADM SS Creatinine [Mass/Vol] 0.82 mg/dL Normal 0.51 - 0.95 mg/dL AO ADM SS Electrolyte Balance 11.0 mEq/L Normal 4.0 - 15 .0 mEq/L AO ADM SS Eosinophil, Absolute 0.1 103/mcL Normal 0.0 - 0 .7 10^3/mcL AO Workflow SS Eosinophils/100 WBC (Bld) 1.2 % Normal 0.0 - 6.0 % AO Workflow SS Erythrocyte distribution width (RBC) [Ratio] 13.0 % Normal 11.5 - 15.5 % AO Workflow SS Globulin 3.8 G/dL Normal 2.7 - 4.4 G/dL AO ADM SS GLOMERULAR FILTRATION RATE/1.73 SQ M.PREDICTED:ARVRAT:PT:S ER/PLAS/BLD:QN:CREATINI NE-BASED FORMULA (CKD-EPI 2020) 87 ml/min/1.73sqm Invalid Interpretation Code AO Chemistry S Comment on above: Interpretive Data: Stages of Chronic Kidney Disease (CKD) Stage Description eGFR(ml/min/1.73 sq.m.) CKD 1 Normal kidney function or >=90 normal kindney function with possible kidney damage (ex. Proteinuria) CKD 2 Kidney damage with mild loss 60-89 of kidney function CKD 3a Mild to moderate loss of kidney 45-59 function CKD 3b Moderate to severe loss of 30-44 of kindey function CKD 4 Severe loss of kidney function 15-29 CKD 5 Kidney failure <15 Note: (go live 2024) the eGFR calculation was updated to the 2020 CKD-EPI creatinine equation without a race factor to calculate the eGFR results. Glucose [Mass/Vol] 91 mg/dL Normal 70 - 105 mg/dL AO ADM SS Hematocrit (Bld) [Volume fraction] 43.9 % Normal 34.0 - 46.0 % AO Workflow SS Hemoglobin (Bld) [Mass/Vol] 15.3 G/dL Normal 12.0 - 16.0 G/dL AO Workflow SS Lipase [Catalytic activity/Vol] 18 U/L Normal 16 - 77 U/L AO ADM SS Lymphocytes (Bld) [#/Vol] 0.6 103/mcL Low 0.9 - 4.3 10^3/mcL AO Workflow SS Lymphocytes/100 WBC (Bld) 6.3 % Low 20.0 - 40.0 % AO Workflow SS MCH (RBC) [Entitic mass] 31.7 pg Normal 27.0 - 33.0 pg AO Workflow SS MCHC 34.8 G/dL Normal 32.0 - 36.0 G/dL AO Workflow SS MCV (RBC) [Entitic vol] 91.2 fL Normal 80.0 - 99.0 fL AO Workflow SS Monocyte distribution width Auto (Bld) [Entitic vol] 27.61 1 High 0.00 - 20.00 AO Workflow SS Comment on above: Result Comment: For adults in ED, MDW>20.0 may be associated with a higher risk of sepsis during the first 12hrs of hospital admission Monocytes (Bld) [#/Vol] 0.7 103/mcL Normal 0.1 - 1.4 10^3/mcL AO Workflow SS Monocytes/100 WBC (Bld) 7.8 % Normal 2.0 - 13.0 % AO Workflow SS Neutrophils (Bld) [#/Vol] 7.8 103/mcL Normal 2.3 - 8.1 10^3/mcL AO Workflow SS Neutrophils/100 WBC (Bld) 84.6 % High 50.0 - 75.0 % AO Workflow SS Platelet mean volume (Bld) [Entitic vol] 7.0 fL Normal 6.6 - 10.5 fL AO Workflow SS Platelets (Bld) [#/Vol] 278 103/mcL Normal 150 - 450 10^3/mcL AO Workflow SS Potassium [Moles/Vol] 3.6 mmol/L Normal 3.5 - 5.1 mmol/L AO ADM SS Protein [Mass/Vol] 7.6 G/dL Normal 6.4 - 8.2 G/dL AO ADM SS RBC (Bld) [#/Vol] 4.81 106/mcL Normal 4.10 - 5.3 0 10^6/mcL AO Workflow SS Sodium [Moles/Vol] 137 mmol/L Normal 136 - 145 mmol/L AO ADM SS Urea nitrogen [Mass/Vol] 15 mg/dL Normal 7 - 18 mg/dL AO ADM SS Urea nitrogen/Creatinine [Mass ratio] 18 ratio Normal 7 - 27 ratio AO ADM SS WBC (Bld) [#/Vol] 9.2 103/mcL Normal 4.5 - 10.8 10^3/mcL AO Workflow SS LABORATORYOrdered By: Miryam Jacobson on 09-19-2025 Clostridium difficile PCR Negative (09/19/25 4:56 PM) Normal Negative AO Auto Urine SS Clostridium difficile PCR Int See Below 1 *NA* (09/19/25 4:56 PM) Invalid Interpretation Code AO Auto Urine SS Comment on above: Result Comment: Clinical Interpretation: No tcdB gene DNA detected. Negative test results may occur from improper collection, handling or storage of specimen, technical error, or extremely low levels of target below the limit of detection of the assay. LIPon 09-19-2025 Lipase Level 18 U/L Normal 16-77 [facility] Comment on above: Performed By: #### G FR, CBC, ADIFF, LIP, MDW, CMP, ANEU #### [facility] [address] [place], [place] [address] Absolute lymphocyte countOrd ered By: Giuliano Cristobal on 09-08-2025 Lymphocytes Auto (Unsp spec) [#/Vol] 0.81 10*3/uL Low 0.83-4.51 [facility] Absolute neutrophil countOrd ered By: Giulianoverónica Campo on 09-08-2025 Neutrophils (Bld) [#/Vol] 4.5 10*3/uL 2.0-7.7 [facility] Anion gap in Serum or Plasma Ordered By: Giulianoverónica Cristobal on 09-08-2025 Anion gap [Moles/Vol] 9 mmol/L - [facility] Automated lymphocyte count a s percentage of total leukocytesOrdered By: Giuliano Cristobal on 09-08-2025 Lymphocytes/100 WBC Auto (Unsp spec) 13.4 % Low - [facility] BUN/creatinine ratioOrdered By: Giulianoverónica Cristobal on 09-08-2025 Urea nitrogen/Creatinine [Mass ratio] 12.6 mg/mg 09-06 [facility] Basic Metabolic Profile (BMP )on 09-08-2025 BUN/CRE 12.6 RATIO Normal 09-06 [facility] Comment on above: Performed By: #### L 500.2500, L100.0100 #### [facility] [address] [place], [address] Calcium [Mass/Vol] 9.5 mg/dL Normal 7.6-11.0 [facility] Comment on above: Performed By: #### L 500.2500, L100.0100 #### [facility] [address] [place], [address] Chloride [Moles/Vol] 101 mmol/L Normal 98-108 [facility] Comment on above: Performed By: #### L 500.2500, L100.0100 #### [facility] [address] [place], [address] CO2 [Moles/Vol] 25.8 mmol/L Normal 21.0-32.0 [facility] Comment on above: Performed By: #### L 500.2500, L100.0100 #### [facility] [address] [place], [address] Creatinine [Mass/Vol] 0.71 mg/dL Normal 0.70-1.20 [facility] Comment on above: Performed By: #### L 500.2500, L100.0100 #### [facility] [address] [place], [address] ECRCL 97.60 ml/min Normal 50-250 [facility] Comment on above: Performed By: #### L 500.2500, L100.0100 #### [facility] [address] [place], [address] GAP 9 Normal 5-15 [facility] Comment on above: Performed By: #### L 500.2500, L100.0100 #### [facility] [address] [place], [address] GFR/1.73 sq M.predicted among non-blacks MDRD (S/P/Bld) [Vol rate/Area] 103 mL/min/{1.73_m2} Normal >60 [facility] Comment on above: Result Comment: mL/m in/1.73m2 CKD-EPI Creatinine Equation (2020) Performed By: #### L 500.2500, L100.0100 #### [facility] [address], [address] Glucose [Mass/Vol] 97 mg/dL Normal 70-99 [facility] Comment on above: Performed By: #### L 500.2500, L100.0100 #### [facility] [address] [place], [address] Potassium [Moles/Vol] 3.9 mmol/L Normal 3.3-5.1 [facility] Comment on above: Performed By: #### L 500.2500, L100.0100 #### [facility] [address] [place], [address] Sodium [Moles/Vol] 136 mmol/L Normal 133-145 [facility] Comment on above: Performed By: #### L 500.2500, L100.0100 #### [facility] [address] [place], [address] Urea nitrogen [Mass/Vol] 9 mg/dL Normal 4-19 [facility] Comment on above: Performed By: #### L 500.2500, L100.0100 #### [facility] [address] [place], [address] Basophil percentageOrdered B y: Giuliano Cristobal on 09-08-2025 Basophils/100 WBC (Bld) 0.5 % 0-1 [facility] Bilirubin Test strip Ql (U)O rdered By: Giuliano Cristobal on 09-08-2025 Bilirubin Ql (U) Negative Negative [facility] CBC W/Diff, Automatedon 08-19 Absolute Lymph 0.81 X10 3/uL Low 0.83-4.51 [facility] Comment on above: Performed By: #### L 500.2500, L100.0100 #### [facility] [address] [place], [address] Absolute Neut 4.5 X10 3/uL Normal 2.0-7.7 [facility] Comment on above: Performed By: #### L 500.2500, L100.0100 #### [facility] [address] [place], [address] Basophils/100 WBC (Bld) 0.5 % Normal 0-1 [facility] Comment on above: Performed By: #### L 500.2500, L100.0100 #### [facility] [address] [place], [address] Eosinophils/100 WBC (Bld) 1.7 % Normal 0-5 [facility] Comment on above: Performed By: #### L 500.2500, L100.0100 #### [facility] [address] [place], [address] Erythrocyte distribution width (RBC) [Ratio] 11.9 % Normal 11.6-14.6 [facility] Comment on above: Performed By: #### L 500.2500, L100.0100 #### [facility] [address] [place], [address] Hematocrit (Bld) [Volume fraction] 39.9 % Normal 37-47 [facility] Comment on above: Performed By: #### L 500.2500, L100.0100 #### [facility] [address] [place], [address] Hemoglobin (Bld) [Mass/Vol] 13.6 g/dL Normal 12.0-15.0 [facility] Comment on above: Performed By: #### L 500.2500, L100.0100 #### [facility] [address] [place], [address] IG% 0.200 Normal 0.0-0.9 [facility] Comment on above: Result Comment: IG% - Immature Granulocytes (promyelocytes, myelocytes and metamyelocytes) > 1% indicates that a LEFT SHIFT is Present. Performed By: #### L 500.2500, L100.0100 #### [facility] [address] [place], [address] Lymphocytes/100 WBC (Bld) 13.4 % Low 19-41 [facility] Comment on above: Performed By: #### L 500.2500, L100.0100 #### [facility] [address] [place], [address] MCH (RBC) [Entitic mass] 30.9 pg Normal 27.0-32.0 [facility] Comment on above: Performed By: #### L 500.2500, L100.0100 #### [facility] [address] [place], [address] MCHC (RBC) [Mass/Vol] 34.1 g/dL Normal 32-36 [facility] Comment on above: Performed By: #### L 500.2500, L100.0100 #### [facility] [address] [place], [address] MCV (RBC) [Entitic vol] 90.7 fL Normal 81-99 [facility] Comment on above: Performed By: #### L 500.2500, L100.0100 #### [facility] [address] [place], [address] Monocytes/100 WBC (Bld) 9.9 % Normal 0-10 [facility] Comment on above: Performed By: #### L 500.2500, L100.0100 #### [facility] [address] [place], [address] Neutrophils/100 WBC (Bld) 74.3 % High 47-70 [facility] Comment on above: Performed By: #### L 500.2500, L100.0100 #### [facility] [address] [place], [address] Nucleated RBC (Bld) [#/Vol] 0 10*3/uL Normal 0-5 [facility] Comment on above: Performed By: #### L 500.2500, L100.0100 #### [facility] [address] [place], [address] Platelet mean volume (Bld) [Entitic vol] 8.7 fL Normal 6.2-12.0 [facility] Comment on above: Performed By: #### L 500.2500, L100.0100 #### [facility] [address] [place], [address] Platelets (Bld) [#/Vol] 225 10*3/uL Normal 150-450 [facility] Comment on above: Performed By: #### L 500.2500, L100.0100 #### [facility] [address] [place], [address] RBC (Bld) [#/Vol] 4.40 10*6/uL Normal 4.2-5.4 [facility] Comment on above: Performed By: #### L 500.2500, L100.0100 #### [facility] [address] [place], [address] RDW SD 39.5 fl Normal 35.1-43.9 [facility] Comment on above: Performed By: #### L 500.2500, L100.0100 #### [facility] [address] [place], [address] WBC (Bld) [#/Vol] 6.1 10*3/uL Normal 4.4-11.0 [facility] Comment on above: Performed By: #### L 500.2500, L100.0100 #### [facility] [address] [place], [address] Carbon dioxide, total [Moles /volume] in Central venous bloodOrdered By: Giuliano Cristobal on 09-08-2025 CO2 [Moles/Vol] 25.8 mmol/L 21.0-32.0 [facility] Chloride assayOrdered By: Carlton Cristobal on 09-08-2025 Chloride [Moles/Vol] 101 mmol/L 98-108 [facility] Emergency Department Summary on 09-08-2025 Emergency Department Summary [facility] Medical Records Department [address] [place] [address] Emergency Department Summary 09/08/25 MR#: [id number] Acct: [id number] Name: KATE REED Rep #: [id number] : 1975 50 From: Giuliano Cristobal MD PCP: Dr. Carol Lebron MD Status:REG ER Location: ED HPI History of Present Illness Chief Complaint: General Illness Detail of Chief Complaint: Patient presents with nausea vomiting diarrhea. Informant: patient Onset/Context/Timing Onset: Yesterday Context: Sudden Onset Timing: Intermittent Quality: Initially crampy pain now none Location: Generalized Current Severity: Gone Maximum Severity: Moderate Worsened by: When patient had vomiting diarrhea Relieved by: Not applicable Associated Symptoms Associated Symptoms: recent courses of antibiotics for urinary tract infection Narrative Narrative: Patient is a 50-year-old woman. She presents because of nausea, vomiting diarrhea with abdominal pain. This started last evening. She has vomited 3 times. She has had 9 loose stools with odor. She denies history of pseudomembranous enterocolitis. She is presently not on antibiotics. She initially was placed on an antibiotic. It was changed because the bacteria was resistant. She then was placed on a different course of antibiotics. She now presents with abdominal pain with nausea, vomiting diarrhea. She does report chills and subjective fever. She does endorse thirst and dry mouth. She denies orthostatic symptoms. She denies headache, visual, ocular auditory symptoms. She denies cardiac or respiratory symptoms. She presently denies urinary symptoms. She has not noted a rash. Prior similar symptoms: No Recent Illness/Hospitalizatio n: Yes PFSH PFSH Medical History Left knee pain Wears glasses Alcohol use Migraine headache History of IBS Non-smoker History of echocardiogram History of stress test Encounter for screening colonoscopy Internal hemorrhoid Anxiety Home Medications ???Medication ???Instructions ???Recorded ???Last Taken ???Type citalopram 40 mg tablet 40 mg PO DAILY 03/29/22 Unknown Hi story cholecalciferol (vitamin D3) 50 50 mcg PO DAILY 09/10/22 Unknown H istory mcg (2,000 unit) capsule (Vitamin D3) cyanocobalamin (vitamin B-12) 50 50 mcg PO DAILY 09/10/22 Unknown H istory mcg tablet (Vitamin B-12) magnesium 200 mg tablet 200 mg PO DAILY 09/10/22 Unknown H istory Allergy/AdvReac Type Severity Reaction Status Date / Time No Known Allergies Allergy Verified 09/08/25 07:55 Family History Father High blood cholesterol Mother Cancer Skin cancer Surgical History History of bladder suspension procedure History of laparoscopic cholecystectomy History of hemorrhoidectomy History of Social History household members: spouse Smoking Status: Never smoker alcohol intake: current substance use type: does not use ROS ROS ED Constitutional Constitutional ED: Reports chills, fever(s) and subjective; Denies sweats ENT ENT ED: Denies ear pain, rhinorrhea or sore throat Cardiovascular Cardiovascular: Denies chest pain Respiratory/Chest Respiratory/Chest: Denies cough, dyspnea or dyspnea on exertion Gastrointestinal Gastrointestinal: Reports abdominal pain, diarrhea, nausea and vomiting; Denies constipation or melena Genitourinary Genitourinary ED: Denies dysuria, hematuria or urinary frequency Musculoskeletal Musculoskeletal: Denies arthralgias, back pain or myalgias Integumentary Denies rash Neurologic Neurologic: Denies paresthesias or weakness Hematologic/Lymphatic Hematologic/Lymphatic: Reports systems reviewed and no addt'l complaints, except as documented EXAM Physical Exam Const Vital Signs: 09/08/25 07:55 09/08/25 07:57 09/08/25 08:04 Temperature 98 F 98 F Temperature Source Oral Oral Pulse Rate 98 90 Respiratory Rate 16 16 Respiratory Pattern Normal Blood Pressure 128/74 H 137/86 H Blood Pressure Mean 92 103 Pulse Ox 100 100 Oxygen Delivery Method Room Air Room Air 09/08/25 08:57 09/08/25 09:55 Temperature 98 F 98 F Temperature Source Oral Oral Pulse Rate 80 78 Respiratory Rate 12 12 Respiratory Pattern Blood Pressure 135/78 H 130/76 H Blood Pressure Mean 97 94 Pulse Ox 99 100 Oxygen Delivery Method Positive well nourished and well developed General Appearance ED: well developed and NAD; Negative for pallor HEENT Reports dry mucous membranes HEENT Narrative: Head is atraumatic and normocephalic. Ears are normal. Nares are patent. Posterior pharynx is (more content not included)... Normal [facility] Eosinophil percentageOrdered By: Giuliano Cristobal on 09-08-2025 Eosinophils/100 WBC (Bld) 1.7 % 0-5 [facility] Erythrocyte distribution wid th ratioOrdered By: Giuliano Cristobal on 09-08-2025 Erythrocyte distribution width (RBC) [Ratio] 11.9 % 11.6-14.6 [facility] Erythrocyte distribution wid th standard deviationOrdered By: Giuliano Cristobal on 09-08-2025 Erythrocyte distribution width (RBC) [Ratio] 39.5 fl 35.1-43.9 [facility] Glomerular filtration rate ( GFR) estimation/1.73 sq m using serum, plasma, or whole bOrdered By: Giuliano Cristobal on 09-08-2025 GFR/1.73 sq M.predicted among non-blacks MDRD (S/P/Bld) [Vol rate/Area] 103 mL/min/{1.73_m2} >60 [facility] Comment on above: mL/min/1.73m2 CKD-EP I Creatinine Equation (2020) Hematocrit Auto (Bld) [Volum e fraction]Ordered By: Giuliano Cristobal on 09-08-2025 Hematocrit (Bld) [Volume fraction] 39.9 % 37-47 [facility] Hemoglobin measurementOrdere d By: Giuliano Cristobal on 09-08-2025 Hemoglobin (Bld) [Mass/Vol] 13.6 g/dL 12.0-15.0 [facility] Immature granulocytes/100 WB C Auto (Bld)Ordered By: Giuliano Cristobal on 09-08-2025 Immature granulocytes/100 WBC (Bld) 0.200 % 0.0-0.9 [facility] Comment on above: IG% - Immature Granu locytes (promyelocytes, myelocytes and metamyelocytes) > 1% indicates that a LEFT SHIFT is Present. Ketones Test strip Ql (U)Ord ered By: Giuliano Cristobal on 09-08-2025 Ketones Ql (U) Negative Negative [facility] MCV (mean corpuscular volume ) determinationOrdered By: Giuliano Cristobal on 09-08-2025 MCV (RBC) [Entitic vol] 90.7 fL 81-99 [facility] [place] Mean corpuscular hemoglobin (MCH) determinationOrdered By: Giuliano Cristobal on 09-08-2025 MCH (RBC) [Entitic mass] 30.9 pg 27.0-32.0 [facility] Mean corpuscular hemoglobin concentration (MCHC) determinationOrdered By: Giuliano Cristobal on 09-08-2025 MCHC (RBC) [Mass/Vol] 34.1 g/dL 32-36 [facility] Mean platelet volume determi nationOrdered By: Giuliano Cristobal 09-08-2025 Platelet mean volume (Bld) [Entitic vol] 8.7 fL 6.2-12.0 [facility] Monocyte percentageOrdered B y: Giuliano Campo on 09-08-2025 Monocytes/100 WBC (Bld) 9.9 % 0-10 [facility] [place] Neutrophil percentageOrdered By: Giuliano Campo on 09-08-2025 Neutrophils/100 WBC (Bld) 74.3 % High 47-70 [facility] Nitrite Test strip Ql (U)Ord ered By: Giulianoverónica Campo on 09-08-2025 Nitrite Ql (U) Negative Negative [facility] Nucleated red blood cell per centageOrdered By: Giuliano Cristobal on 09-08-2025 Nucleated RBC/100 WBC (Bld) [Ratio] 0 % 0-5 [facility] Platelet countOrdered By: Carlton verónica Campo on 09-08-2025 Platelets (Bld) [#/Vol] 225 10*3/uL 150-450 [facility] Potassium measurement (mass/ volume)Ordered By: Giuliano Cristobal on 09-08-2025 Potassium (Unsp spec) [Mass/Vol] 3.9 mmol/L 3.3-5.1 [facility] Protein Test strip Ql (U)Ord ered By: Giulianoverónica Campo on 09-08-2025 Protein Ql (U) Negative Negative [facility] RBC Auto (Bld) [#/Vol]Ordere d By: Giulianoverónica Campo on 09-08-2025 RBC (Bld) [#/Vol] 4.40 10*6/uL 4.2-5.4 [facility] Serum creatinine measurement (mass/volume)Ordered By: Giuliano Cristobal on 09-08-2025 Creatinine [Mass/Vol] 0.71 mg/dL 0.70-1.20 [facility] Serum glucose measurement (m ass/volume)Ordered By: Giuliano Cristobal on 09-08-2025 Glucose [Mass/Vol] 97 mg/dL 70-99 [facility] Serum or plasma calcium carol urement (mass/volume)Ordered By: Giuliano Cristobal on 09-08-2025 Calcium [Mass/Vol] 9.5 mg/dL 7.6-11.0 [facility] Serum or plasma urea nitroge n measurement (mass/volume)Ordered By: Giuliano Cristobal on 09-08-2025 Urea nitrogen [Mass/Vol] 9 mg/dL 4-19 [facility] Sodium levelOrdered By: Giuliano Cristobal on 09-08-2025 Sodium [Moles/Vol] 136 mmol/L 133-145 [facility] Urinalysis, Routine (Dipstic k)on 09-08-2025 BILIRUBIN URINE Negative Normal Negative [facility] Comment on above: Order Comment: CLEAN CATCH Performed By: #### L 400.2010 #### [facility] [address] [place], [address] Clarity (U) Sl. Cloudy Normal Clear [facility] Comment on above: Order Comment: CLEAN CATCH Performed By: #### L 400.2010 #### [facility] [address] [place], [address] Color (U) Yellow Normal Yellow [facility] Comment on above: Order Comment: CLEAN CATCH Performed By: #### L 400.2010 #### [facility] [address] [place], [address] GLUCOSE, UR Normal Normal Normal [facility] Comment on above: Order Comment: CLEAN CATCH Performed By: #### L 400.2010 #### [facility] [address] [place], [address] KETONE UR Negative Normal Negative [facility] Comment on above: Order Comment: CLEAN CATCH Performed By: #### L 400.2010 #### [facility] [address] [place], [address] LEUK ESTERASE Negative Normal Negative [facility] Comment on above: Order Comment: CLEAN CATCH Performed By: #### L 400.2010 #### [facility] [address] [place], [address] Nitrite Ql (U) Negative Normal Negative [facility] Comment on above: Order Comment: CLEAN CATCH Performed By: #### L 400.2010 #### [facility] [address] [place], [address] OCCULT BLOOD-UR 10 /ul Abnormal Negative [facility] Comment on above: Order Comment: CLEAN CATCH Performed By: #### L 400.2010 #### [facility] [address] [place], [address] pH UR 7.0 Normal 5.0 - 8.0 [facility] Comment on above: Order Comment: CLEAN CATCH Performed By: #### L 400.2010 #### [facility] [address] [place], [address] PROT DIPSTX Negative Normal Negative [facility] Comment on above: Order Comment: CLEAN CATCH Performed By: #### L 400.2010 #### [facility] [address] [place], [address] SP.GR. DIPSTX 1.010 Normal 1.002-1.030 [facility] Comment on above: Order Comment: CLEAN CATCH Performed By: #### L 400.2010 #### [facility] [address] [place], [address] UROBILI Normal Normal Normal [facility] Comment on above: Order Comment: CLEAN CATCH Performed By: #### L 400.2010 #### [facility] [address] [place], [address] Urine clarityOrdered By: Giuliano Cristobal on 09-08-2025 Clarity (U) Sl. Cloudy Clear [facility] Urine color determinationOrd ered By: Giuliano Cristobal on 09-08-2025 Color (U) Yellow Yellow [facility] Urine glucose detectionOrder ed By: Giuliano Cristobal on 09-08-2025 Glucose Ql (U) Normal mg/dl Normal [facility] Urine leukocyte esterase det ection by dipstickOrdered By: Giuliano Cristobal on 09-08-2025 Leukocyte esterase Test strip Ql (U) Negative Negative [facility] Urine pHOrdered By: Giuliano unger on 09-08-2025 pH (U) 7.0 [pH] 5.0 - 8.0 [facility] Urine specific gravity measu rementOrdered By: Giuliano Cristobal on 09-08-2025 Specific gravity (U) [Rel density] 1.010 1.002-1.030 [facility] Urine urobilinogen measureme ntOrdered By: Giluiano Cristobal on 09-08-2025 Urobilinogen Ql (U) Normal mg/dl Normal [facility] White blood cell (WBC) count Ordered By: Giuliano Cristobal on 09-08-2025 WBC (Bld) [#/Vol] 6.1 10*3/uL 4.4-11.0 [facility] CNOVon 08-31-2025 [facility] Office Visit (JOSÉ ) KATE REED ([id number]) 1975 F Date Time Provider Department 08/31/25 2:00 PM KATHERINE TIRADO During your visit today, we recorded the following information about you: Temperature Pulse Respiration Blood pressure 96.8 degrees 88/minute 16/minute 116/80 Weight 76.7 kg Katherine Tirado PA-C 08/31/2025 2:21 PM Signed - Take one Keflex capsule by mouth twice daily for 7 days; prescription has been sent to [facility]. - Have a repeat urinalysis in about one month to confirm that any remaining blood in your urine has cleared; if blood persists, you may need to see a urologist. - Drink plenty of water throughout the day to help flush out bacteria. - Expect to feel some relief within 48 hours; if your symptoms do not improve by then, contact the office. - Seek emergency care if you develop a fever over 100 degreeF, begin vomiting, or experience severe back or abdominal pain. Katherine Tirado PA-C 09/01/2025 9:27 AM Signed Recording using FaceAlert[employer] software for draft documentation of the visit was discussed with the patient/authorized bottling equipment sales representative; all questions welcomed and answered. Patient/authorized bottling equipment sales representative agreed to proceed 09/01/2025 Kate Reed is a 50-year-old female presenting for evaluation of persistent urinary symptoms. Urinary Symptoms: Leia was seen on 08/09/25, urine dip positive, started on Bactrim. Pateint completed antibiotic. Upon reviewing culture results from 08/09-resistence to bactrim. - Persistent urinary frequency. - Previous severe pressure sensation has improved; now only mild residual sensation. - New onset of lower back pain, bloating, and excessive flatulence. - Denies emesis or fever, chills, flank pain. - No history of renal issues. Current Outpatient Medications on File Prior to Visit Medication Sig semaglutide (OZEMPIC) 0.25 mg or 0.5 mg (2 mg/3 mL) pen Inject 0.25 mg subcutaneously one time a week. phenazopyridine (PYRIDIUM) 100 mg tablet Take 1 tablet by mouth three times a day as needed. gabapentin (NEURONTIN) 300 mg capsule Take 1 capsule by mouth two times a day for 180 days. rimegepant (NURTEC ODT) 75 mg disintegrating tablet Take 1 tablet by mouth once daily as needed for migraine headache (see administration instructions). No more than 1 dose in 24 hours. Do not swallow whole. Allow tablet to dissolve in mouth. Norethindrone Acet-Ethinyl Est (,) 1-20 mg-mcg per tablet Take 1 tablet by mouth once daily. ondansetron (ZOFRAN) 4 mg tablet Take 1 tablet by mouth every 8 hours as needed for nausea/vomiting. citalopram (CELEXA) 20 mg tablet Take 1 tablet by mouth once daily. MEDICATION, NON-DATABASE Take by mouth once daily. D3 + k2 vitamin MEDICATION, NON-DATABASE Take 1,200 mg by mouth once daily. Red yeast rice extract ASHWAGANDHA EXTRACT ORAL Take 600 mg by mouth once daily. (Patient not taking: Reported on 08/09/2025) MEDICATION, NON-DATABASE Take by mouth once daily. Curcumin and rexveratrol 1 tsp daily B.animalis,bifid,infan tis,long (PROBIOTIC 4X ORAL) Take by mouth once daily. MEDICATION, NON-DATABASE Take by mouth once daily. Pre biotic NIFEdipine rectal ointment 0.2% (CPD) Apply a pea-sized amount by RECTAL route three times a day. (Patient not taking: Reported on 07/14/2025) valACYclovir (VALTREX) 500 mg tablet At earliest [...] tablet by mouth once daily as needed. No current facility-administered medications on file prior to visit. PAST MEDICAL HISTORY Diagnosis Date Anxiety 11/24/2020 Biliary dyskinesia 10/30/2013 Chronic cholecystitis without calculus 12/03/2013 Endometriosis, site unspecified Endometriosis Irregular menstrual cycle Irregular periods IRREGULAR MENSTRUATION Mild dysplasia of cervix (FREDO I) Mixed incontinence Allergies: Erythromycin GI Upset Honey Swelling Constitutional: (+) fatigue, (-) fever Gastrointestinal: (+) abdominal bloating, (-) vomiting Genitourinary: (+) urinary frequency Musculoskeletal: (+) lower back pain, (+) myalgia BP 116/80 Pulse 88 Temp 36 ?C (96.8 ?F) Resp 16 Wt 76.7 kg (169 lb) LMP (LMP Unknown) BMI 27.28 kg/m? GENERAL: NAD, alert and oriented. LUNGS: Clear to auscultation bilaterally, no wheezes/rhonchi/rales. HEART: Regular rate and rhythm, no murmurs. No ectopy. ABDOMEN: Mild tenderness in the lower abdomen, no tenderness in the upper abdomen. No hepatosplenomegaly. BACK no CVA TTP Labs: - (08/31/2025) Urinalysis: - Nitrite: decreased - Bacteriuria: dec (more content not included)... Normal [facility] Breast imaging reportOrdered By: Azra Vargas on 08-13-2025 Study report [facility] Imaging Services [address] [place], [place] [address] DIAG MAMM W/CAD, UNILAT MR#: [id number] Acct: [id number] Name: KATE REED Rep #: [id number] : 1975 F 50 From: Shawna Vargas MD PCP: Dr. Carol Lebron MD Status: FILIPPO STEWART Study:DIAG MAMM W/CAD, UNILAT Date of Exam: 08/13/25 Exam# [id number] Ordering Dr: Luis Lebron MD EXAM: DIAG MAMM W/CAD, UNILAT; LT BRST UNILAT KIRILL ADD ON 08/13/2025 CLINICAL HISTORY: F, Age 50 y/o , ABD MAMM TECHNIQUE: Procedure Code: BIDMWCADU; BILTUNITOMO Modality: MG Procedure: DIAG MAMM W/CAD, UNILAT; LT BRST UNILAT KIRILL ADD ON. COMPARISON: Prior exam(s) dated 08/09/2025, 08/06/2024, 08/05/2023. FINDINGS: TISSUE DENSITY: There are scattered areas of fibroglandular density. Unilateral Left Breast Mammographic Findings: Follow-up examination performed for the asymmetry in the left breast seen on examination of 08/09/2025. On the present examination, the asymmetry in the superior left breast at posterior depth does not persist. Otherwise, there are no suspicious findings in the left breast. BI/DIAG MAMM W/CAD, UNILAT IMPRESSION: There is no evidence of malignancy in the left breast. OVERALL FINAL ASSESSMENT BI-RADS 1: NEGATIVE RECOMMENDATION: Routine annual follow-up in 1 Year Additional Recommendation none A letter with findings and recommendations will be mailed to the patient. Reading Location: [facility] CC: Dr. Carol Lebron MD ~ Academic Administrator: Signed [facility] Study report [facility] Imaging Services [address] [place] [id number] Lt Brst Unilat Kirill Add On MR#: [id number] Acct: [id number] Name: KATE REED Rep #: [id number] : 1975 F 50 From: Shawna Vargas MD PCP: Dr. Carol Lebron MD Status: REG C LI Study:Lt Brst Unilat Kirill Add On Date of Exam : 08/13/25 Exam# [id number] Ordering Dr: Luis Lebron MD EXAM: DIAG MAMM W/CAD, UNILAT; LT BRST UNILAT KIRILL ADD ON 08/13/2025 CLINICAL HISTORY: F, Age 50 y/o , ABD MAMM TECHNIQUE: Procedure Code: BIDMWCADU; BILTUNITOMO Modality: MG Procedure: DIAG MAMM W/CAD, UNILAT; LT BRST UNILAT KIRILL ADD ON. COMPARISON: Prior exam(s) dated 08/09/2025, 08/06/2024, 08/05/2023. FINDINGS: TISSUE DENSITY: There are scattered areas of fibroglandular density. Unilateral Left Breast Mammographic Findings: Follow-up examination performed for the asymmetry in the left breast seen on examination of 08/09/2025. On the present examination, the asymmetry in the superior left breast at posterior depth does not persist. Otherwise, there are no suspicious findings in the left breast. BI/Lt Brst Unilat Kirill Add On IMPRESSION: There is no evidence of malignancy in the left breast. OVERALL FINAL ASSESSMENT BI-RADS 1: NEGATIVE RECOMMENDATION: Routine annual follow-up in 1 Year Additional Recommendation none A letter with findings and recommendations will be mailed to the patient. Reading Location: [facility] CC: Dr. Carol Lebron MD ~ Academic Administrator: Signed [facility] DIAG MAMM W/CAD, UNILATon DIAG MAMM W/CAD, UNILAT [facility] Imaging Services [address] [place] [address] DIAG MAMM W/CAD, UNILAT MR#: [id number] Acct: [id number] Name: KATE REED Rep #: [id number] : 1975 F 50 From: Azra Vargas MD PCP: Dr. Carol Lebron MD Status: REG CLI Study: DIAG MAMM W/CAD, UNILAT Date of Exam: 08/13/25 Exam# [id number] Ordering Dr: Carol Lebron MD EXAM: DIAG MAMM W/CAD, UNILAT; LT BRST UNILAT KIRILL ADD ON 08/13/2025 CLINICAL HISTORY: F, Age 50 y/o , ABD MAMM TECHNIQUE: Procedure Code: BIDMWCADU; BILTUNITOMO Modality: MG Procedure: DIAG MAMM W/CAD, UNILAT; LT BRST UNILAT KIRILL ADD ON. COMPARISON: Prior exam(s) dated 08/09/2025, 08/06/2024, 08/05/2023. FINDINGS: TISSUE DENSITY: There are scattered areas of fibroglandular density. Unilateral Left Breast Mammographic Findings: Follow-up examination performed for the asymmetry in the left breast seen on examination of 08/09/2025. On the present examination, the asymmetry in the superior left breast at posterior depth does not persist. Otherwise, there are no suspicious findings in the left breast. BI/DIAG MAMM W/CAD, UNILAT IMPRESSION: There is no evidence of malignancy in the left breast. OVERALL FINAL ASSESSMENT BI-RADS 1: NEGATIVE RECOMMENDATION: Routine annual follow-up in 1 Year Additional Recommendation none A letter with findings and recommendations will be mailed to the patient. Reading Location: [facility] CC: Dr. Carol Lebron MD Academic Administrator: Signed Normal [facility] Lt Brst Unilat Kirill Add Onon 08-13-2025 Lt Brst Unilat Kirill Add On [facility] Imaging Services [address] [place] [address] Lt Brst Unilat Kirlil Add On MR#: [id number] Acct: [id number] Name: KATE REED Rep #: [id number] : 1975 F 50 From: Azra Vargas MD PCP: Dr. Carol Lebron MD Status: [facility] CL Study: Lt Brst Unilat Kirill Add On Date of Exam: 08/13 Exam# [id number] Ordering Dr: Carol Lebron MD EXAM: DIAG MAMM W/CAD, UNILAT; LT BRST UNILAT KIRILL ADD ON 08/13/2025 CLINICAL HISTORY: F, Age 50 y/o , ABD MAMM TECHNIQUE: Procedure Code: BIDMWCADU; BILTUNITOMO Modality: MG Procedure: DIAG MAMM W/CAD, UNILAT; LT BRST UNILAT KIRILL ADD ON. COMPARISON: Prior exam(s) dated 08/09/2025, 08/06/2024, 08/05/2023. FINDINGS: TISSUE DENSITY: There are scattered areas of fibroglandular density. Unilateral Left Breast Mammographic Findings: Follow-up examination performed for the asymmetry in the left breast seen on examination of 08/09/2025. On the present examination, the asymmetry in the superior left breast at posterior depth does not persist. Otherwise, there are no suspicious findings in the left breast. BI/Lt Brst Unilat Kirill Add On IMPRESSION: There is no evidence of malignancy in the left breast. OVERALL FINAL ASSESSMENT BI-RADS 1: NEGATIVE RECOMMENDATION: Routine annual follow-up in 1 Year Additional Recommendation none A letter with findings and recommendations will be mailed to the patient. Reading Location: [facility] CC: Dr. Carol Lebron MD Academic Administrator: Signed Normal [facility] Bacteria Ur Culton Bacteria identified Cx Nom (U) ORGANISM ID: 1 >=100,000 CFU/ml Escherichia coli ORGANISM ID: 1 (ESCHERICHIA COLI) -- ANTIBIOTIC INTERPRETATION AISHA STATUS REFERENCE RANGE -- Ampicillin R >=32 F Susceptible <=8 , Intermediate >8 , Resistant >16 Cefazolin S <=4 F Susceptible 0-16 , Intermediate <0 or >16 , Resistant >16 For uncomplicated urinary tract infections, cefazolin results can be used to predict susceptibility or resistance to cephalexin. Ceftriaxone S <=1 F Susceptible <=1 , Intermediate >1 , Resistant >=4 Cefepime S <=1 F Susceptible <=2 , Susceptible-Dose Dependent >2 , Resistant >=16 Ertapenem S <=0.5 F Susceptible <=0.5 , Intermediate >.5 , Resistant >1 Meropenem S <=0.25 F Susceptible <=1 , Intermediate >1 , Resistant >2 Ampicillin/Sulbact I 16 F Susceptible <=8 , Intermediate >8 , Resistant >16 Piperacillin/Tazobac S <=4 F Susceptible <16 , Susceptible-Dose Dependent >=16 , Resistant >=32 Gentamicin R >=16 F Susceptible <=2 , Intermediate >2 , Resistant >=8 Tobramycin I 4 F Susceptible <4 , Intermediate >=4 , Resistant >=8 Amikacin S <=2 F Susceptible <8 , Intermediate >=8 , Resistant >=16 Trimeth sulfameth R >=320 F Susceptible <=40 , Resistant >40 Ciprofloxacin S <=0.25 F Susceptible <0.5 , Intermediate >=.5 , Resistant >=1 Nitrofurantoin S <=16 F Susceptible <=32 , Intermediate >32 , Resistant >64 Abnormal [facility] Comment on above: Performed By: #### 6 30-4 ####[facility] LABCLIA [id number] [place] [address] [place] Breast imaging reportOrdered By: Rodrick Aguilera on 08-09-2025 Study report [facility] Imaging Services [address] [place] [address] SCRN MAMM (CAD)W/KIRILL BILAT MR#: [id number] Acct: [id number] Name: KATE REED Rep #: [id number] : 1975 F 50 From: Ramón Aguilera MD PCP: Dr. Carol Lebron MD Status: [facility] [place] Study:SCRN MAMM (CAD)W/KIRILL BILAT Date of Exa m: 08/09/25 Exam# [id number] Ordering Dr: Luis Lebron MD EXAM: SCRN MAMM (CAD)W/KIRILL BILAT DATE: 08/09/2025 CLINICAL HISTORY: F, Age 50 y/o , SCREENING No family history. TECHNIQUE: Procedure Code: BISMWCADBTOM Modality: MG Procedure: SCRN MAMM (CAD)W/KIRILL BILAT COMPARISON: Prior exam(s) dated August 06, 2024.. FINDINGS: TISSUE DENSITY: The breasts are heterogeneously dense, which may obscure small masses. Bilateral Breast Mammographic Findings: Focal nodular density seen only on the MLO view of the left breast measuring 1 cm in the axillary region. The patient will be recalled for additional views including 90 degree lateral and compression spot views. BI/SCRN MAMM (CAD)W/KIRILL BILAT IMPRESSION: Questionable 1 cm nodular density in the axillary region of the left breast as seen on the MLO view. The patient will be recalled for additional views including 90 degree lateral and compression spot views. OVERALL FINAL ASSESSMENT BI-RADS 0: INCOMPLETE - NEED ADDITIONAL IMAGING EVALUATION. RECOMMENDATION: Additional Views obtained/call backs Additional Recommendation none A letter with findings and recommendations will be mailed to the patient. Reading Location: [facility] CC: Dr. Carol Lebron MD ~ Academic Administrator: Signed [facility] CNOVon 08-09-2025 CNOV Office Visit (INTMWS ) KATE REED ([id number]) 1975 F Date Time Provider Department 08/09/25 8:00 AM CAROL LEBRON During your visit today, we recorded the following information about you: Temperature Pulse Respiration Blood pressure 98.3 degrees 84/minute 16/minute 126/70 Weight 77.6 kg Carol Lebron MD 08/09/2025 8:35 AM Signed We discussed your urinary symptoms and diagnosis of a urinary tract infection (UTI): - Your urine test confirmed a UTI. There was also microscopic blood in your urine, which is common with UTIs. - I prescribed sulfamethoxazole/trime thoprim (Bactrim) to treat the infection. Take this medication as directed for 7 days. The prescription has been sent to your pharmacy. - A urine culture has been ordered to identify the specific bacteria causing the infection. No further action is needed unless the culture results require a change in treatment. We will contact you if necessary. - If you experience worsening symptoms, such as fever, chills, back pain, or persistent symptoms after completing the antibiotic course, please contact our office. We discussed your recent shingles vaccine: - You received the first dose of the shingles vaccine last week. The second dose is due on October 01. - I have placed an order for the second dose. Please call your insurance to confirm whether it will cover the vaccine if administered in our office or at a pharmacy. Once confirmed, you can schedule an appointment with us or visit your pharmacy to receive the booster. We discussed your weight loss and use of compounded semaglutide (GLP-1): - You have successfully lost weight, going from 184 lbs to 171 lbs, while using compounded semaglutide. This medication has been added to your chart for documentation. - To maintain long-term weight loss, it is recommended to continue this medication for 5-7 years, even at a maintenance dose once you reach your goal weight. This helps your body adjust and sustain the weight loss over time. - If you have any concerns or questions about this medication, please let us know. We reviewed your preventive health screenings: - Your mammogram was completed today. - Your colonoscopy was last performed on September 14, 2022, and is up to date. The next colonoscopy is due in 2031. Next steps: - Take the prescribed antibiotic as directed and monitor your symptoms. - Call your insurance to confirm coverage for the shingles vaccine booster and schedule accordingly. - Continue your current weight loss plan with semaglutide and maintain healthy lifestyle habits. - Contact us if you have any new or worsening symptoms or additional questions. Carol Lebron MD 08/09/2025 9:58 AM Signed Reason for Visit - Follow up HPI Kate Reed is a 50-year-old female presenting with symptoms of a UTI. Kate reports onset of symptoms on Saturday, beginning with a general feeling of malaise and achiness while attending a wedding. By Saturday, she began experiencing urinary urgency with minimal output, describing it as a few dribbles each time she attempted to void. She also reports a sensation of pressure and an urge to push, feeling as though she could not completely empty her bladder. These symptoms persisted throughout the night and into the following morning, with frequent trips to the bathroom approximately every 20 minutes. She notes a slight decrease in pressure today, which she attributes to reduced fluid intake. She denies any visible hematuria, fever, or chills. Kate is currently perimenopausal and has a history of UTIs, though she notes it has been a long time since her last episode. She recently received her first dose of the shingles vaccine last week and inquires about scheduling the second dose. She also mentions being on a GLP-1 receptor agonist, compounded semaglutide, for weight management, which has resulted in weight loss from 184 lbs to 171 lbs. She reports mild nausea as a side effect. SOCIAL HISTORY[1] Past medical history, appointments, medications, allergies reviewed. Pertinent Lab/Diagnostic Studies are reviewed and discussed today Current Outpatient Medications: gabapentin (NEURONTIN) 300 mg capsule rimegepant (NURTEC ODT) 75 mg disintegrating tablet Norethindrone Acet-Ethinyl Est (12/07, ,) 1-20 mg-mcg per tablet ondansetron (ZOFRAN) 4 mg tablet MEDICATION, NON-DATABASE MEDICATION, NON-DATABASE MEDICATION, NON-DATABASE B.animalis,bifid,infan tis,long (PROBIOTIC 4X ORAL) MEDICATION, NON-DATABASE valACYclovir (VALTREX) 500 mg tablet cholecalciferol, vitamin D3, (VITAMIN D3 ORAL) magnesium carb,citrate,oxide (MAGNESIUM COMPLEX ORAL) meclizine (ANTIVERT) 25 mg tab sulfamethoxazole-trime thoprim (BACTRIM DS) 800-160 mg per tablet semaglutide (OZEMPIC) 0.25 mg or 0.5 mg (2 mg/3 mL) pen phenazopyridine ( (more content not included)... Normal [facility]ATE [facility]ED ([id number]) 1975 F Date Time Provider Department 08/09/25 CAROL LEBRON [facility] During your visit today, we recorded the following information about you: Marga Olivares MA 08/09/2025 4:03 PM Signed [facility] faxed over Mammogram results and requesting L diagnostic mammogram and L US. Mammogram report scanned in chart. Carol Lebron MD 08/10/2025 5:28 PM Signed Ordered the mammogram as requested Regards, Nataly Stewart MD, RN 08/11/2025 9:51 AM Signed Orders faxed to [facility] Mammography as requested by [facility]. Faxed to [phone] as requested. Allergies As of Date: 08/09/2025 Noted Allergy Reaction ERYTHROMYCIN 10/15/2005 8 - GI Upset HONEY 07/04/2009 7 - Swelling Date Reviewed: 08/09/2025 Reviewed by: Naz Melendrez LPN - Fully Assessed Primary Visit Diagnosis:Abnormal mammogram [R92.8] Order(s):[facility] LEFT [5035011] Order #: [id number] FUTURE US BREAST LTD LEFT [[id number]] Order #: [id number] FUTURE Prescriptions as of 08/11/2025 - sulfamethoxazole-trime thoprim (BACTRIM DS) 800-160 mg per tablet Take 1 tablet by mouth two times a day for 7 days. - semaglutide (OZEMPIC) 0.25 mg or 0.5 mg (2 mg/3 mL) pen Inject 0.25 mg subcutaneously one time a week. - phenazopyridine (PYRIDIUM) 100 mg tablet Take 1 tablet by mouth three times a day as needed. - gabapentin (NEURONTIN) 300 mg capsule Take 1 capsule by mouth two times a day for 180 days. - rimegepant (NURTEC ODT) 75 mg disintegrating tablet Take 1 tablet by mouth once daily as needed for migraine headache (see administration instructions). No more than 1 dose in 24 hours. Do not swallow whole. Allow tablet to dissolve in mouth. - Norethindrone Acet-Ethinyl Est (,) 1-20 mg-mcg per tablet Take 1 tablet by mouth once daily. - ondansetron (ZOFRAN) 4 mg tablet Take 1 tablet by mouth every 8 hours as needed for nausea/vomiting. - citalopram (CELEXA) 20 mg tablet Take 1 tablet by mouth once daily. - MEDICATION, NON-DATABASE Take by mouth once daily. D3 + k2 vitamin - MEDICATION, NON-DATABASE Take 1,200 mg by mouth once daily. Red yeast rice extract - ASHWAGANDHA EXTRACT ORAL Take 600 mg by mouth once daily. - MEDICATION, NON-DATABASE Take by mouth once daily. Curcumin and rexveratrol 1 tsp daily - B.animalis,bifid,infan tis,long (PROBIOTIC 4X ORAL) Take by mouth once daily. - MEDICATION, NON-DATABASE Take by mouth once daily. Pre biotic - NIFEdipine rectal ointment 0.2% (CPD) Apply a pea-sized amount by RECTAL route three times a day. - valACYclovir (VALTREX) 500 mg tablet At [...] of 07/06/2010: Problem List As Of Date 08/09/2025 Noted Resolved Irregular menstrual cycle [N92.6] 08/08/2012 ENDOMETRIOSIS NOS [N80.9] Abdominal pain [R10.9] 09/07/2013 11/24/2020 Altered bowel function [R19.8] 09/07/2013 11/24/2020 GERD (gastroesophageal reflux disease) [K21.9] 09/07/2013 Biliary dyskinesia [K82.8] 10/30/2013 11/24/2020 Chronic cholecystitis without calculus [K81.1] 12/03/2013 11/24/2020 Anxiety [F41.9] 11/24/2020 Vertigo [R42] 10/16/2022 Encounter Status:Closed by NATALY MOSCOSO on 08/11/25 Normal [facility] SCRN MAMM (CAD)W/KIRILL BILATo n 08-09-2025 SCRN MAMM (CAD)W/KIRILL BILAT [facility] Imaging Services [address] [place] [id number] SCRN MAMM (CAD)W/KIRILL BILAT MR#: [id number] Acct: [id number] Name: KATE REED Rep #: [id number] : 1975 F 50 From: Rodrick sims MD PCP: Dr. Carol Lebron MD Status: REG CL Study: SCRN MAMM (CAD)W/KIRILL BILAT Date of Exam: 07/20 01/12 Exam# [id number] Ordering Dr: Carol Lebron MD EXAM: SCRN MAMM (CAD)W/KIRILL BILAT DATE: 08/09/2025 CLINICAL HISTORY: F, Age 50 y/o , SCREENING No family history. TECHNIQUE: Procedure Code: BISMWCADBTOM Modality: MG Procedure: SCRN MAMM (CAD)W/KIRILL BILAT COMPARISON: Prior exam(s) dated August 06, 2024.. FINDINGS: TISSUE DENSITY: The breasts are heterogeneously dense, which may obscure small masses. Bilateral Breast Mammographic Findings: Focal nodular density seen only on the MLO view of the left breast measuring 1 cm in the axillary region. The patient will be recalled for additional views including 90 degree lateral and compression spot views. BI/SCRN MAMM (CAD)W/KIRILL BILAT IMPRESSION: Questionable 1 cm nodular density in the axillary region of the left breast as seen on the MLO view. The patient will be recalled for additional views including 90 degree lateral and compression spot views. OVERALL FINAL ASSESSMENT BI-RADS 0: INCOMPLETE - NEED ADDITIONAL IMAGING EVALUATION. RECOMMENDATION: Additional Views obtained/call backs Additional Recommendation none A letter with findings and recommendations will be mailed to the patient. Reading Location: [place] [address] CC: Dr. Carol Lebron MD Academic Administrator: Signed [facility] CNOVon 07-14-2025 CNOV Office Visit (NEMOWS ) KATE REDE ([id number]) 1975 F Date Time Provider Department 07/14/25 8:30 AM AMANDA EWING During your visit today, we recorded the following information about you: Respiration Weight 16/minute 80.1 kg Amanda Ewing PA-C 07/14/2025 9:28 AM Signed [facility] for General Neurology Name: Kate Reed Age: [...] stores and had difficulty attending a recent [employer] game. The dizziness began after a significant [...] On tien (more content not included)... Normal [facility] CBC W Auto Differential pane l (Bld)on 05-03-2025 Basophils (Bld) [#/Vol] 0.03 10*3/uL Normal <0.11 [facility] Comment on above: Order Comment: Speci men Type: BLOOD SPECIMENOrdering Facility: [facility] Address: [address] [place] [address] Performed By: #### 5 7021-8 ####[facility] LABCLIA [id number] [place] [address] [place] Basophils/100 WBC (Bld) 0.9 % Normal [facility] Comment on above: Order Comment: Speci men Type: BLOOD SPECIMENOrdering Facility: [facility] Address: [address] [place] [address] Performed By: #### 5 7021-8 ####[facility] LABCLIA [id number] [place] [address] [place] Differential cell count method Nom (Bld) Auto Normal [facility] Comment on above: Order Comment: Speci men Type: BLOOD SPECIMENOrdering Facility: [facility] Address: [address] [place] [address] Performed By: #### 5 7021-8 ####[facility] LABCLIA [id number] [place] [address] [place] Eosinophils (Bld) [#/Vol] 0.13 10*3/uL Normal <0.46 [facility] Comment on above: Order Comment: Speci men Type: BLOOD SPECIMENOrdering Facility: [facility] Address: [address] [place] [address] Performed By: #### 5 7021-8 ####[facility] LABCLIA [id number] [place] [address] [place] Eosinophils/100 WBC (Bld) 3.8 % Normal [facility] Comment on above: Order Comment: Speci men Type: BLOOD SPECIMENOrdering Facility: [facility] Address: [address] [place] [address] Performed By: #### 5 7021-8 ####[facility] LABCLIA [id number] [place] [address] [place] Erythrocyte distribution width (RBC) [Ratio] 11.7 % Normal 11.5-15.0 [facility] Comment on above: Order Comment: Speci men Type: BLOOD SPECIMENOrdering Facility: [facility] Address: [address] [place] [address] Performed By: #### 5 7021-8 ####[facility] LABCLIA [id number] [place] [address] [place] Hematocrit (Bld) [Volume fraction] 37.6 % Normal 36.0-46.0 [facility] Comment on above: Order Comment: Speci men Type: BLOOD SPECIMENOrdering Facility: [facility] Address: [address] [place] [address] Performed By: #### 5 7021-8 ####[facility] LABCLIA [id number] [place] [address] [place] Hemoglobin (Bld) [Mass/Vol] 12.3 g/dL Normal 11.5-15.5 [facility] Comment on above: Order Comment: Speci men Type: BLOOD SPECIMENOrdering Facility: [facility] Address: [address] [place] [address] Performed By: #### 5 7021-8 ####[facility] LABIA [id number] [place] [address] [place] Immature granulocytes (Bld) [#/Vol] 10*3/uL Normal <0.10 [facility] Comment on above: Order Comment: Speci men Type: BLOOD SPECIMENOrdering Facility: [facility] Address: [address] [place] [address] Performed By: #### 5 7021-8 ####[facility] LABIA [id number] [place] [address] [place] Immature granulocytes/100 WBC (Bld) 0.3 % Normal [facility] Comment on above: Order Comment: Speci men Type: BLOOD SPECIMENOrdering Facility: [facility] Address: [address] [place] [address] Performed By: #### 5 7021-8 ####[facility] LABIA [id number] [place] [address] [place] Lymphocytes (Bld) [#/Vol] 0.76 10*3/uL Low 1.00-4.00 [facility] Comment on above: Order Comment: Speci men Type: BLOOD SPECIMENOrdering Facility: [facility] Address: [address] [place] [address] Performed By: #### 5 7021-8 ####[facility] LABIA [id number] [address] [place] Lymphocytes/100 WBC (Bld) 22.0 % Normal [facility] Comment on above: Order Comment: Speci men Type: BLOOD SPECIMENOrdering Facility: [facility] Address: [address] [place] [address] Performed By: #### 5 7021-8 ####[facility] LABIA [id number] [place] [address] [place] MCH (RBC) [Entitic mass] 31.0 pg Normal 26.0-34.0 [facility] Comment on above: Order Comment: Speci men Type: BLOOD SPECIMENOrdering Facility: [facility] Address: [address] [place] [address] Performed By: #### 5 7021-8 ####[facility] LABIA [id number] [place] [address] [place] MCHC (RBC) [Mass/Vol] 32.7 g/dL Normal 30.5-36.[address] [facility] Comment on above: Order Comment: Speci men Type: BLOOD SPECIMENOrdering Facility: [facility] Address: [address] [place] [address] Performed By: #### 5 7021-8 ####[facility] LABIA [id number] [place] [address] [place] MCV (RBC) [Entitic vol] 94.7 fL Normal 80.0-100.0 [facility] Comment on above: Order Comment: Speci men Type: BLOOD SPECIMENOrdering Facility: [facility] Address: [address] [place] [address] Performed By: #### 5 7021-8 ####[facility] LABIA [id number] [place] [address] [place] Monocytes (Bld) [#/Vol] 0.46 10*3/uL Normal <0.87 [facility] Comment on above: Order Comment: Speci men Type: BLOOD SPECIMENOrdering Facility: [facility] Address: [address] [place] [address] Performed By: #### 5 7021-8 ####[facility] LABCLIA [id number] [place] [address] [place] Monocytes/100 WBC (Bld) 13.3 % Normal [facility] Comment on above: Order Comment: Speci men Type: BLOOD SPECIMENOrdering Facility: [facility] Address: [address] [place] [address] Performed By: #### 5 7021-8 ####[facility] LABCLIA [id number] [place] [address] [place] Neutrophils (Bld) [#/Vol] 2.07 10*3/uL Normal 1.45-7.50 [facility] Comment on above: Order Comment: Speci men Type: BLOOD SPECIMENOrdering Facility: [facility] Address: [address] [place] [address] Performed By: #### 5 7021-8 ####[facility] LABCLIA [id number] [place] [id number] [place] Neutrophils/100 WBC (Bld) 59.7 % Normal [facility] Comment on above: Order Comment: Speci men Type: BLOOD SPECIMENOrdering Facility: [facility] Address: [address] [place] [address] Performed By: #### 5 7021-8 ####[facility] LABCLIA [id number] [place] [address] [place] Nucleated RBC (Bld) [#/Vol] 10*3/uL Normal <0.01 [facility] Comment on above: Order Comment: Speci men Type: BLOOD SPECIMENOrdering Facility: [facility] Address: [address] [place] [address] Performed By: #### 5 7021-8 ####[facility] LABCLIA [id number] [place] [address] [place] Nucleated RBC/100 WBC (Bld) [Ratio] 0.0 /100 WBC Normal [facility] Comment on above: Order Comment: Speci men Type: BLOOD SPECIMENOrdering Facility: [facility] Address: [address] [place] [address] Performed By: #### 5 7021-8 ####[facility] LABIA [id number] [place] [address] [place] Platelet mean volume (Bld) [Entitic vol] 9.8 fL Normal 9.0-12.7 [facility] Comment on above: Order Comment: Speci men Type: BLOOD SPECIMENOrdering Facility: [facility] Address: [address] [place] [address] Performed By: #### 5 7021-8 ####[facility] LABIA [id number] [place] [address] [place] Platelets (Bld) [#/Vol] 257 10*3/uL Normal 150-400 [facility] Comment on above: Order Comment: Speci men Type: BLOOD SPECIMENOrdering Facility: [facility] Address: [address] [place] [address] Performed By: #### 5 7021-8 ####[facility] LABCLIA [id number] [place] [address] [place] RBC (Bld) [#/Vol] 3.97 10*6/uL Normal 3.90-5.20 [facility] Comment on above: Order Comment: Speci men Type: BLOOD SPECIMENOrdering Facility: [facility] Address: [address] [place] [address] Performed By: #### 5 7021-8 ####[facility] LABCLIA [id number] [place] [id number] [place] WBC (Bld) [#/Vol] 3.46 10*3/uL Low 3.70-11.00 [facility] Comment on above: Order Comment: Speci men Type: BLOOD SPECIMENOrdering Facility: [facility] Address: [address] [place] [address] Performed By: #### 5 7021-8 ####[facility] LABCLIA [id number] [place] [id number] [facility] CNOVon 04-13-2025 CNOV Office Visit (NEUSHF ) BRANDONKATE MESA ([id number]) 1975 F Date Time Provider Department 04/13/25 10:30 AM JOVI KISER During your visit today, we recorded the following information about you: Temperature Pulse Blood pressure Weight 97.7 degrees 78/minute 124/70 82.9 kg Height 1.676 m Jovi Kiser APRN.DELIVERY DIRECTOR 04/13/2025 12:[address] [facility] Name: Kate Reed Age: [age] year old Gender: female Primary Care Provider: Carol Lebron MD 04/13/2025 - General Neurology, Jovi Kiser APRN.DELIVERY DIRECTOR ASSESSMENT Kate Reed is a 49-year-old female presenting for follow-up primarily due to ongoing dizziness, which she reports occurs more often than not. She describes the dizziness as a persistent rocking or imbalance sensation rather than a spinning vertigo. The symptoms are exacerbated by complex visual environments, significantly impacting her quality of life-for example, she avoids stores and had difficulty attending a recent [employer] game. The dizziness began after a significant [...] and without status migrainosus, not intractable G43.009 Kateher Kalpana Reed has been previously approved for [...] (more content not included)... Normal [facility] 04-13-2025 [facility] Telephone (INTMWS) KATE REED ([id number]) 1975 F Date Time Provider Department 04/13/25 ACROL LEBRON INTWS During your visit today, we recorded the [...] Curcumin and rexveratrol 1 tsp daily - B.animalis,bifid,infan tis,long (PROBIOTIC 4X ORAL) Take by mouth once [...] Encounter Status:Closed by CAROL LEBRON on 04/13/25 [facility] 04-05-2025 CNOV Office Visit (INTMWS ) KATE REED ([id number]) 1975 F Date Time Provider Department 04/05/25 3:20 PM CAROL LEBRON During your visit today, we [...] control: - I refilled your Junel (ethinyl estradiol/norethindron e acetate) 21-day cycle prescription. 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 - Follow up with your farm equipment assembler within the next year regarding your control. - Let me know if your migraines persist or worsen despite these changes. Enjoy your upcoming trip to [place], [place], and [place]! Safe travels! Carol Lebron MD 04/05/2025 6:45 PM Signed Reason for Visit Follow up HPI Kate [...] migraine pain as ice pick to the hinduism and notes associated nausea. She has been [...] last Pap smear in November at the [facility]. She is aware of the increased risk of blood clots associated with control use after age 50 and confirms that she is still menstruating. She maintains an active lifestyle and stays well-hydrated. She is planning a trip to [place] in April and expresses concern about managing [...] MEDICATION, NON-DATABASE ASHWAGANDHA EXTRACT ORAL MEDICATION, NON-DATABASE B.animalis,bifid,infan tis,long (PROBIOTIC 4X ORAL) MEDICATION, NON-DATABASE NIFEdipine rectal ointment (more content not included)... Normal [facility] CBC W Auto Differential pane l (Bld)on 04-03-2025 Basophils (Bld) [#/Vol] 10*3/uL Normal <0.11 [facility] Comment on above: Order Comment: Speci men Type: BLOOD SPECIMENOrdering Facility: [facility] Address: [address] [place] [address] Performed By: #### 5 7021-8 ####[facility] LABCLIA [id number] [place] [address] [place] Basophils/100 WBC (Bld) 0.5 % Normal [facility] Comment on above: Order Comment: Speci men Type: BLOOD SPECIMENOrdering Facility: [facility] Address: [address] [place] [address] Performed By: #### 5 7021-8 ####[facility] LABCLIA [id number] [place] [address] [place] Differential cell count method Nom (Bld) Auto Normal [facility] Comment on above: Order Comment: Speci men Type: BLOOD SPECIMENOrdering Facility: [facility] Address: [address] [place] [address] Performed By: #### 5 7021-8 ####[facility] LABCLIA [id number] [place] [address] [place] Eosinophils (Bld) [#/Vol] 0.06 10*3/uL Normal <0.46 [facility] Comment on above: Order Comment: Speci men Type: BLOOD SPECIMENOrdering Facility: [facility] Address: [address] [place] [address] Performed By: #### 5 7021-8 ####[facility] LABCLIA [id number] [place] [id number] [place] Eosinophils/100 WBC (Bld) 1.4 % Normal [facility] Comment on above: Order Comment: Speci men Type: BLOOD SPECIMENOrdering Facility: [facility] Address: [address] [place] [address] Performed By: #### 5 7021-8 ####[facility] LABCLIA [id number] [place] [address] [place] Erythrocyte distribution width (RBC) [Ratio] 11.8 % Normal 11.5-15.0 [facility] Comment on above: Order Comment: Speci men Type: BLOOD SPECIMENOrdering Facility: [facility] Address: [address] [place] [address] Performed By: #### 5 7021-8 ####[facility] LABCLIA [id number] [place] [address] [place] Hematocrit (Bld) [Volume fraction] 41.4 % Normal 36.0-46.0 [facility] Comment on above: Order Comment: Speci men Type: BLOOD SPECIMENOrdering Facility: [facility] Address: [address] [place] [address] Performed By: #### 5 7021-8 ####[facility] LABCLIA [id number] [place] [address] [place] Hemoglobin (Bld) [Mass/Vol] 13.9 g/dL Normal 11.5-15.5 [facility] Comment on above: Order Comment: Speci men Type: BLOOD SPECIMENOrdering Facility: [facility] Address: [address] [place] [address] Performed By: #### 5 7021-8 ####[facility] LABCLIA [id number] [place] [address] [place] Immature granulocytes (Bld) [#/Vol] 10*3/uL Normal <0.10 [facility] Comment on above: Order Comment: Speci men Type: BLOOD SPECIMENOrdering Facility: [facility] Address: [address] [place] [address] Performed By: #### 5 7021-8 ####[facility] LABCLIA [id number] [place] [address] [place] [facility] Immature granulocytes/100 WBC (Bld) 0.2 % Normal [facility] Comment on above: Order Comment: Speci men Type: BLOOD SPECIMENOrdering Facility: [facility] Address: [address] [place] [address] Performed By: #### 5 7021-8 ####[facility] LABIA [id number] [place] [address] [place] Lymphocytes (Bld) [#/Vol] 0.78 10*3/uL Low 1.00-4.00 [facility] Comment on above: Order Comment: Speci men Type: BLOOD SPECIMENOrdering Facility: [facility] Address: [address] [place] [address] Performed By: #### 5 7021-8 ####[facility] LABIA [id number] [address] [place] Lymphocytes/100 WBC (Bld) 17.6 % Normal [facility] Comment on above: Order Comment: Speci men Type: BLOOD SPECIMENOrdering Facility: [facility] Address: [address] [place] [address] Performed By: #### 5 7021-8 ####[facility] LABCLIA [id number] [place] [address] [place] MCH (RBC) [Entitic mass] 31.2 pg Normal 26.0-34.0 [facility] Comment on above: Order Comment: Speci men Type: BLOOD SPECIMENOrdering Facility: [facility] Address: [address] [place] [address] Performed By: #### 5 7021-8 ####[facility] LABCLIA [id number] [place] [address] [place] MCHC (RBC) [Mass/Vol] 33.6 g/dL Normal 30.5-36.0 [facility] Comment on above: Order Comment: Speci men Type: BLOOD SPECIMENOrdering Facility: [facility] Address: [address] [place] [address] Performed By: #### 5 7021-8 ####[facility] LABIA [id number] [place] [address] [place] MCV (RBC) [Entitic vol] 93.0 fL Normal 80.0-100.0 [facility] Comment on above: Order Comment: Speci men Type: BLOOD SPECIMENOrdering Facility: [facility] Address: [address] [place] [address] Performed By: #### 5 7021-8 ####[facility] LABIA [id number] [place] [address] [place] Monocytes (Bld) [#/Vol] 0.44 10*3/uL Normal <0.87 [facility] Comment on above: Order Comment: Speci men Type: BLOOD SPECIMENOrdering Facility: [facility] Address: [address] [place] [address] Performed By: #### 5 7021-8 ####[facility] LABIA [id number] [place] [address] [place] Monocytes/100 WBC (Bld) 9.9 % Normal [facility] Comment on above: Order Comment: Speci men Type: BLOOD SPECIMENOrdering Facility: [facility] Address: [address] [place] [address] Performed By: #### 5 7021-8 ####[facility] LABCLIA [id number] [place] [address] [place] Neutrophils (Bld) [#/Vol] 3.13 10*3/uL Normal 1.45-7.50 [facility] Comment on above: Order Comment: Speci men Type: BLOOD SPECIMENOrdering Facility: [facility] Address: [address] [place] [address] Performed By: #### 5 7021-8 ####[facility] LABCLIA [id number] [address] [place] Neutrophils/100 WBC (Bld) 70.4 % Normal [facility] Comment on above: Order Comment: Speci men Type: BLOOD SPECIMENOrdering Facility: [facility] Address: [address] [place] [address] Performed By: #### 5 7021-8 ####[facility] LABCLIA [id number] [place] [address] [place] Nucleated RBC (Bld) [#/Vol] 10*3/uL Normal <0.01 [facility] Comment on above: Order Comment: Speci men Type: BLOOD SPECIMENOrdering Facility: [facility] Address: [address] [place] [address] Performed By: #### 5 7021-8 ####[facility] LABCLIA [id number] [place] [address] [place] Nucleated RBC/100 WBC (Bld) [Ratio] 0.0 /100 WBC Normal [facility] Comment on above: Order Comment: Speci men Type: BLOOD SPECIMENOrdering Facility: [facility] Address: [address] [place] [address] Performed By: #### 5 7021-8 ####[facility] LABCLIA [id number] [place] [id number] [place] Platelet mean volume (Bld) [Entitic vol] 9.6 fL Normal 9.0-12.7 [facility] Comment on above: Order Comment: Speci men Type: BLOOD SPECIMENOrdering Facility: [facility] Address: [address] [place] [address] Performed By: #### 5 7021-8 ####[facility] LABCLIA [id number] [place] [address] [place] Platelets (Bld) [#/Vol] 312 10*3/uL Normal 150-400 [facility] Comment on above: Order Comment: Speci men Type: BLOOD SPECIMENOrdering Facility: [facility] Address: [address] [place] [address] Performed By: #### 5 7021-8 ####[facility] [id number] [place] [address] [place] RBC (Bld) [#/Vol] 4.45 10*6/uL Normal 3.90-5.20 [facility] Comment on above: Order Comment: Speci men Type: BLOOD SPECIMENOrdering Facility: [facility] Address: [address] [place] [address] Performed By: #### 5 7021-8 ####[facility] [id number] [place] [address] [place] WBC (Bld) [#/Vol] 4.44 10*3/uL Normal 3.70-11.00 [facility] Comment on above: Order Comment: Speci men Type: BLOOD SPECIMENOrdering Facility: [facility] Address: [address] [place] [address] Performed By: #### 5 7021-8 ####[facility] [id number] [address] [place] CNOVon 02-25-2025 CNOV Office Visit (INTMWS ) KATE REED ([id number]) 1975 F Date Time Provider Department 02/25/25 9:00 AM CAROL LEBRONWS During your visit today, we recorded the [...] MEDICATION, NON-DATABASE ASHWAGANDHA EXTRACT ORAL MEDICATION, NON-DATABASE B.animalis,bifid,infan tis,long (PROBIOTIC 4X ORAL) MEDICATION, NON-DATABASE NIFEdipine rectal [...] highest recorded (more content not included)... Normal [facility] CBC W Auto Differential pane l (Bld)on 02-22-2025 Basophils (Bld) [#/Vol] 0.04 10*3/uL Normal <0.11 [facility] Comment on above: Order Comment: Speci men Type: BLOOD SPECIMENOrdering Facility: [facility] Address: [address] [place] [address] Performed By: #### 5 7021-8 ####[facility] LABCLIA [id number] [place] [address] [place] Basophils/100 WBC (Bld) 1.2 % Normal [facility] Comment on above: Order Comment: Speci men Type: BLOOD SPECIMENOrdering Facility: [facility] Address: [address] [place] [address] Performed By: #### 5 7021-8 ####[facility] LABCLIA [id number] [place] [address] [place] Differential cell count method Nom (Bld) Auto Normal [facility] Comment on above: Order Comment: Speci men Type: BLOOD SPECIMENOrdering Facility: [facility] Address: [address] [place] [address] Performed By: #### 5 7021-8 ####[facility] LABCLIA [id number] [place] [address] [place] Eosinophils (Bld) [#/Vol] 0.07 10*3/uL Normal <0.46 [facility] Comment on above: Order Comment: Speci men Type: BLOOD SPECIMENOrdering Facility: [facility] Address: [address] [place] [address] Performed By: #### 5 7021-8 ####[facility] LABCLIA [id number] [place] [address] [place] Eosinophils/100 WBC (Bld) 2.1 % Normal [facility] Comment on above: Order Comment: Speci men Type: BLOOD SPECIMENOrdering Facility: [facility] Address: [address] [place] [address] Performed By: #### 5 7021-8 ####[facility] LABCLIA [id number] [place] [address] [place] Erythrocyte distribution width (RBC) [Ratio] 11.9 % Normal 11.5-15.0 [facility] Comment on above: Order Comment: Speci men Type: BLOOD SPECIMENOrdering Facility: [facility] Address: [address] [place] [address] Performed By: #### 5 7021-8 ####[facility] LABIA [id number] [place] [address] [place] Hematocrit (Bld) [Volume fraction] 39.5 % Normal 36.0-46.0 [facility] Comment on above: Order Comment: Speci men Type: BLOOD SPECIMENOrdering Facility: [facility] Address: [address] [place] [address] Performed By: #### 5 7021-8 ####[facility] LABCLIA [id number] [place] [id number] [place] Hemoglobin (Bld) [Mass/Vol] 13.5 g/dL Normal 11.5-15.5 [facility] Comment on above: Order Comment: Speci men Type: BLOOD SPECIMENOrdering Facility: [facility] Address: [address] [place] [address] Performed By: #### 5 7021-8 ####[facility] LABCLIA [id number] [place] [id number] [place] Immature granulocytes (Bld) [#/Vol] 10*3/uL Normal <0.10 [facility] Comment on above: Order Comment: Speci men Type: BLOOD SPECIMENOrdering Facility: [facility] Address: [address] [place] [address] Performed By: #### 5 7021-8 ####[facility] LABCLIA [id number] [address], [place] [address] [place] Immature granulocytes/100 WBC (Bld) 0.3 % Normal [facility] Comment on above: Order Comment: Speci men Type: BLOOD SPECIMENOrdering Facility: [facility] Address: [address] [place] [address] Performed By: #### 5 7021-8 ####[facility] LABCLIA [id number] [place] [address] [place] Lymphocytes (Bld) [#/Vol] 0.82 10*3/uL Low 1.00-4.00 [facility] Comment on above: Order Comment: Speci men Type: BLOOD SPECIMENOrdering Facility: [facility] Address: [address] [place] [address] Performed By: #### 5 7021-8 ####[facility] LABCLIA [id number] [place] [address] [place] Lymphocytes/100 WBC (Bld) 24.6 % Normal [facility] Comment on above: Order Comment: Speci men Type: BLOOD SPECIMENOrdering Facility: [facility] Address: [address] [place] [address] Performed By: #### 5 7021-8 ####[facility] LABCLIA [id number] [place] [id number] [place] MCH (RBC) [Entitic mass] 31.2 pg Normal 26.0-34.0 [facility] Comment on above: Order Comment: Speci men Type: BLOOD SPECIMENOrdering Facility: [facility] Address: [address] [place] [address] Performed By: #### 5 7021-8 ####[facility] LABCLIA [id number] [place] [address] [place] MCHC (RBC) [Mass/Vol] 34.2 g/dL Normal 30.5-36.0 [facility] Comment on above: Order Comment: Speci men Type: BLOOD SPECIMENOrdering Facility: [facility] Address: [address] [place] [address] Performed By: #### 5 7021-8 ####[facility] LABCLIA [id number] [place] [address] [place] MCV (RBC) [Entitic vol] 91.2 fL Normal 80.0-100.0 [facility] Comment on above: Order Comment: Speci men Type: BLOOD SPECIMENOrdering Facility: [facility] Address: [address] [place] [address] Performed By: #### 5 7021-8 ####[facility] LABIA [id number] [place] [address] [place] Monocytes (Bld) [#/Vol] 0.52 10*3/uL Normal <0.87 [facility] Comment on above: Order Comment: Speci men Type: BLOOD SPECIMENOrdering Facility: [facility] Address: [address] [place] [address] Performed By: #### 5 7021-8 ####[facility] LABCLIA [id number] [place] [address] [place] Monocytes/100 WBC (Bld) 15.6 % Normal [facility] Comment on above: Order Comment: Speci men Type: BLOOD SPECIMENOrdering Facility: [facility] Address: [address] [place] [address] Performed By: #### 5 7021-8 ####[facility] LABCLIA [id number] [place] [address] [place] Neutrophils (Bld) [#/Vol] 1.87 10*3/uL Normal 1.45-7.50 [facility] Comment on above: Order Comment: Speci men Type: BLOOD SPECIMENOrdering Facility: [facility] Address: [address] [place] [address] Performed By: #### 5 7021-8 ####[facility] LABCLIA [id number] [place] [address] [place] Neutrophils/100 WBC (Bld) 56.2 % Normal [facility] Comment on above: Order Comment: Speci men Type: BLOOD SPECIMENOrdering Facility: [facility] Address: [address] [place] [address] Performed By: #### 5 7021-8 ####[facility] LABCLIA [id number] [place] [address] [place] Nucleated RBC (Bld) [#/Vol] 10*3/uL Normal <0.01 [facility] Comment on above: Order Comment: Speci men Type: BLOOD SPECIMENOrdering Facility: [facility] Address: [address] [place] [address] Performed By: #### 5 7021-8 ####[facility] LABCLIA [id number] [place] [address] [place] Nucleated RBC/100 WBC (Bld) [Ratio] 0.0 /100 WBC Normal [facility] Comment on above: Order Comment: Speci men Type: BLOOD SPECIMENOrdering Facility: [facility] Address: [address] [place] [address] Performed By: #### 5 7021-8 ####[facility] LABCLIA [id number] [place] [id number] [place] Platelet mean volume (Bld) [Entitic vol] 10.2 fL Normal 9.0-12.7 [facility] Comment on above: Order Comment: Speci men Type: BLOOD SPECIMENOrdering Facility: [facility] Address: [address] [place] [address] Performed By: #### 5 7021-8 ####[facility] LABIA [id number] [place], [place] [address] [place] Platelets (Bld) [#/Vol] 286 10*3/uL Normal 150-400 [facility] Comment on above: Order Comment: Speci men Type: BLOOD SPECIMENOrdering Facility: [facility] Address: [address] [place] [address] Performed By: #### 5 7021-8 ####[facility] LABIA [id number] [place] [address] [place] RBC (Bld) [#/Vol] 4.33 10*6/uL Normal 3.90-5.20 [facility] Comment on above: Order Comment: Speci men Type: BLOOD SPECIMENOrdering Facility: [facility] Address: [address] [place] [address] Performed By: #### 5 7021-8 ####[facility] LABIA [id number] [place] [address] [place] WBC (Bld) [#/Vol] 3.33 10*3/uL Low 3.70-11.00 [facility] Comment on above: Order Comment: Speci men Type: BLOOD SPECIMENOrdering Facility: [facility] Address: [address] [place] [address] Performed By: #### 5 7021-8 ####[facility] LABIA [id number] [place] [id number] [place] CNOVon 02-04-2025 CNOV Office Visit (CORN ) KATE REED ([id number]) 1975 F Date Time Provider Department 02/04/25 [...] regimen Incision/wound: no issues postoperatively healed 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 Again stressed the importance [...] COLPO OF CERVIX INC UPPER VAG 11/2005 ESOPHAGOGASTRODUODENOS COPY TRANSORAL DIAGNOSTIC 09/16/2013 EGD LAPS ABD PRTMANDOMENTUM [...] Heart: reg (more content not included)... Normal [facility] Basic metabolic 2000 panelon 01-11-2025 Anion gap [Moles/Vol] 13 mmol/L Normal 8-15 [facility] Comment on above: Order Comment: Speci men Type: BLOOD SPECIMENOrdering Facility: [facility] Address: [address] [place] [address] Performed By: #### 2 432-2, 57806-4 ####[facility] LABCLIA [id number] [place] [address] [place] Calcium [Mass/Vol] 9.2 mg/dL Normal 8.5-10.2 [facility] Comment on above: Order Comment: Speci men Type: BLOOD SPECIMENOrdering Facility: [facility] Address: [address] [place] [address] Performed By: #### 2 432-2, 77993-6 ####[facility] LABCLIA [id number] [place] [id number] [place] Chloride [Moles/Vol] 103 mmol/L Normal 98-107 [facility] Comment on above: Order Comment: Speci men Type: BLOOD SPECIMENOrdering Facility: [facility] Address: [address] [place] [address] Performed By: #### 2 432-2, 41199-4 ####[facility] LABCLIA [id number] [place] [id number] [place] CO2 [Moles/Vol] 22 mmol/L Normal 22-30 [facility] Comment on above: Order Comment: Speci men Type: BLOOD SPECIMENOrdering Facility: [facility] Address: [address] [place] [address] Performed By: #### 2 4321-2, 82337-9 ####[facility] LABCLIA [id number] [place] [id number] [place] Creatinine [Mass/Vol] 0.71 mg/dL Normal 0.58-0.96 [facility] Comment on above: Order Comment: Speci men Type: BLOOD SPECIMENOrdering Facility: [facility] Address: [address] [place] [address] Performed By: #### 2 432-2, 52543-9 ####[facility] LABCLIA [id number] [place] [address] [place] Creatinine and Glomerular filtration rate.predicted panel (S/P/Bld) 104 mL/min/1.73m??? Normal >=60 [facility] Comment on above: Order Comment: Speci men Type: BLOOD SPECIMENOrdering Facility: [facility] Address: [address] [place] [address] Result Comment: Renata mated Glomerular Filtration Rate [...] actual GFR. Performed By: #### 2 4321-2, 22629-3 ####[facility] LABCLIA [id number] [place] [id number] [place] Glucose [Mass/Vol] 83 mg/dL Normal 74-99 [facility] Comment on above: Order Comment: Speci men Type: BLOOD SPECIMENOrdering Facility: [facility] Address: [address] [place] [address] Result Comment: The [place] Diabetes Association (ADA) provides guidance for cutoff [...] Standards of Medical Care in Diabetes 2016, [place] Diabetes Association. Diabetes Care. 2016.39(Suppl 1). Performed By: #### 2 4321-2, 48603-8 ####[facility] LABCLIA [id number] [place] [address] [place] Potassium [Moles/Vol] 4.4 mmol/L Normal 3.7-5.1 [facility] Comment on above: Order Comment: Speci men Type: BLOOD SPECIMENOrdering Facility: [facility] Address: [address] [place] [address] Performed By: #### 2 432-, 95564-2 ####[facility] LABIA [id number] [place] [address] [place] Sodium [Moles/Vol] 138 mmol/L Normal 136-144 [facility] Comment on above: Order Comment: Speci men Type: BLOOD SPECIMENOrdering Facility: [facility] Address: [address] [place] [id number] Performed By: #### 2 432-2, 82981-7 ####[facility] LABCLIA [id number] [place] [address] [place] Urea nitrogen [Mass/Vol] 8 mg/dL Normal 7-21 [facility] Comment on above: Order Comment: Speci men Type: BLOOD SPECIMENOrdering Facility: [facility] Address: [address] [place] [address] Performed By: #### 2 4321-2, 40694-8 ####[facility] LABCLIA [id number] [place] [address] [place] CBC W Auto Differential pane l (Bld)on 01-11-2025 Basophils (Bld) [#/Vol] 0.04 10*3/uL Normal <0.11 [facility] Comment on above: Order Comment: Speci men Type: BLOOD SPECIMENOrdering Facility: [facility] Address: [address] [place] [address] Performed By: #### 5 7021-8 ####[facility] LABCLIA [id number] [place] [address] [place] Basophils/100 WBC (Bld) 1.4 % Normal C [facility] Comment on above: Order Comment: Speci men Type: BLOOD SPECIMENOrdering Facility: [facility] Address: [address] [place] [address] Performed By: #### 5 7021-8 ####[facility] LABCLIA [id number] [place] [address] [place] Differential cell count method Nom (Bld) Auto Normal [facility] Comment on above: Order Comment: Speci men Type: BLOOD SPECIMENOrdering Facility: [facility] Address: [address] [place] [address] Performed By: #### 5 7021-8 ####[facility] LABCLIA [id number] [place] [address] [place] Eosinophils (Bld) [#/Vol] 0.05 10*3/uL Normal <0.46 [facility] Comment on above: Order Comment: Speci men Type: BLOOD SPECIMENOrdering Facility: [facility] Address: [address] [place] [address] Performed By: #### 5 7021-8 ####[facility] LABCLIA [id number] [place] [address] [place] Eosinophils/100 WBC (Bld) 1.8 % Normal [facility] Comment on above: Order Comment: Speci men Type: BLOOD SPECIMENOrdering Facility: [facility] Address: [address] [place] [address] Performed By: #### 5 7021-8 ####[facility] LABCLIA [id number] [place] [address] [place] Erythrocyte distribution width (RBC) [Ratio] 11.7 % Normal 11.5-15.0 [facility] Comment on above: Order Comment: Speci men Type: BLOOD SPECIMENOrdering Facility: [facility] Address: [address] [place] [address] Performed By: #### 5 7021-8 ####[facility] LABCLIA [id number] [place] [address] [place] Hematocrit (Bld) [Volume fraction] 40.5 % Normal 36.0-46.0 [facility] Comment on above: Order Comment: Speci men Type: BLOOD SPECIMENOrdering Facility: [facility] Address: [address] [place] [address] Performed By: #### 5 7021-8 ####[facility] LABCLIA [id number] [place] [address] [place] Hemoglobin (Bld) [Mass/Vol] 13.4 g/dL Normal 11.5-15.5 [facility] Comment on above: Order Comment: Speci men Type: BLOOD SPECIMENOrdering Facility: [facility] Address: [address] [place] [address] Performed By: #### 5 7021-8 ####[facility] LABCLIA [id number] [place] [address] [place] Immature granulocytes (Bld) [#/Vol] 10*3/uL Normal <0.10 [facility] Comment on above: Order Comment: Speci men Type: BLOOD SPECIMENOrdering Facility: [facility] Address: [address] [place] [address] Performed By: #### 5 7021-8 ####[facility] LABCLIA [id number] [place] [address] [place] Immature granulocytes/100 WBC (Bld) 0.0 % Normal [facility] Comment on above: Order Comment: Speci men Type: BLOOD SPECIMENOrdering Facility: [facility] Address: [address] [place] [address] Performed By: #### 5 7021-8 ####[facility] LABIA [id number] [place] [address] [place] Lymphocytes (Bld) [#/Vol] 0.73 10*3/uL Low 1.00-4.00 [facility] Comment on above: Order Comment: Speci men Type: BLOOD SPECIMENOrdering Facility: [facility] Address: [address] [place] [address] Performed By: #### 5 7021-8 ####[facility] LABIA [id number] [place] [address] [place] Lymphocytes/100 WBC (Bld) 26.3 % Normal [facility] Comment on above: Order Comment: Speci men Type: BLOOD SPECIMENOrdering Facility: [facility] Address: [address] [place] [address] Performed By: #### 5 7021-8 ####[facility] LABCLIA [id number] [place] [address] [place] MCH (RBC) [Entitic mass] 30.9 pg Normal 26.0-34.0 [facility] Comment on above: Order Comment: Speci men Type: BLOOD SPECIMENOrdering Facility: [facility] Address: [address] [place] [address] Performed By: #### 5 7021-8 ####[facility] LABCLIA [id number] [place] [address] [place] MCHC (RBC) [Mass/Vol] 33.1 g/dL Normal 30.5-36.0 [facility] Comment on above: Order Comment: Speci men Type: BLOOD SPECIMENOrdering Facility: [facility] Address: [address] [place] [address] Performed By: #### 5 7021-8 ####[facility] LABIA [id number] [place] [address] [place] MCV (RBC) [Entitic vol] 93.3 fL Normal 80.0-100.0 [facility] Comment on above: Order Comment: Speci men Type: BLOOD SPECIMENOrdering Facility: [facility] Address: [address] [place] [address] Performed By: #### 5 7021-8 ####[facility] LABCLIA [id number] [place] [address] [place] Monocytes (Bld) [#/Vol] 0.44 10*3/uL Normal <0.87 [facility] Comment on above: Order Comment: Speci men Type: BLOOD SPECIMENOrdering Facility: [facility] Address: [address] [place] [address] Performed By: #### 5 7021-8 ####[facility] LABIA [id number] [place] [address] [place] Monocytes/100 WBC (Bld) 15.8 % Normal [facility] Comment on above: Order Comment: Speci men Type: BLOOD SPECIMENOrdering Facility: [facility] Address: [address] [place] [address] Performed By: #### 5 7021-8 ####[facility] LABCLIA [id number] [place] [address] [place] Neutrophils (Bld) [#/Vol] 1.52 10*3/uL Normal 1.45-7.50 [facility] Comment on above: Order Comment: Speci men Type: BLOOD SPECIMENOrdering Facility: [facility] Address: [address] [place] [address] Performed By: #### 5 7021-8 ####[facility] LABCLIA [id number] [place] [address] [place] Neutrophils/100 WBC (Bld) 54.7 % Normal [facility] Comment on above: Order Comment: Speci men Type: BLOOD SPECIMENOrdering Facility: [facility] Address: [address] [place] [address] Performed By: #### 5 7021-8 ####[facility] LABCLIA [id number] [place] [address] [place] Nucleated RBC (Bld) [#/Vol] 10*3/uL Normal <0.01 [facility] Comment on above: Order Comment: Speci men Type: BLOOD SPECIMENOrdering Facility: [facility] Address: [address] [place] [address] Performed By: #### 5 7021-8 ####[facility] LABCLIA [id number] [place] [address] [place] Nucleated RBC/100 WBC (Bld) [Ratio] 0.0 /100 WBC Normal [facility] Comment on above: Order Comment: Speci men Type: BLOOD SPECIMENOrdering Facility: [facility] Address: [address] [place] [address] Performed By: #### 5 7021-8 ####[facility] LABCLIA [id number] [place] [address] [place] Platelet mean volume (Bld) [Entitic vol] 9.9 fL Normal 9.0-12.7 [facility] Comment on above: Order Comment: Speci men Type: BLOOD SPECIMENOrdering Facility: [facility] Address: [address] [place] [address] Performed By: #### 5 7021-8 ####[facility] LABCLIA [id number] [place] [address] [place] Platelets (Bld) [#/Vol] 259 10*3/uL Normal 150-400 [facility] Comment on above: Order Comment: Speci men Type: BLOOD SPECIMENOrdering Facility: [facility] Address: [address] [place] [address] Performed By: #### 5 7021-8 ####[facility] LABIA [id number] [place] [address] [place] RBC (Bld) [#/Vol] 4.34 10*6/uL Normal 3.90-5.20 [facility] Comment on above: Order Comment: Speci men Type: BLOOD SPECIMENOrdering Facility: [facility] Address: [address] [place] [address] Performed By: #### 5 7021-8 ####[facility] LABIA [id number] [place] [address] [place] WBC (Bld) [#/Vol] 2.78 10*3/uL Low 3.70-11.00 [facility] Comment on above: Order Comment: Speci men Type: BLOOD SPECIMENOrdering Facility: [facility] Address: [address] [place] [address] Performed By: #### 5 7021-8 ####[facility] [id number] [place] [address] [place] Lipid 1996 panelon 5 Cholesterol [Mass/Vol] 193 mg/dL Normal <[address] [facility] Comment on above: Order Comment: Speci men Type: BLOOD SPECIMENOrdering Facility: [facility] Address: [address] [place] [address] Result Comment: <200 mg/dL, Desirable 200-239 mg/dL, Borderline high >239 mg/dL, High Performed By: #### 2 4321-2, 94531-4 ####[facility] LABCLIA [id number] [address] [address] [facility] Cholesterol in HDL [Mass/Vol] 52 mg/dL Normal >39 [facility] Comment on above: Order Comment: Lena perales Type: BLOOD SPECIMENOrdering Facility: [facility] Address: [address] [place] [address] Result Comment: 40-5 9 mg/dL, Acceptable >59 mg/dL, High: Negative risk factor for coronary heart disease <40 mg/dL, Low: Positive risk factor for coronary heart disease Performed By: #### 2 4321-2, 66318-4 ####[facility] LABCLIA [id number] [address] Cholesterol in LDL [Mass/Vol] 125 mg/dL High <100 [facility] Comment on above: Order Comment: Lena perales Type: BLOOD SPECIMENOrdering Facility: [facility] Address: [address] [place] [address] Result Comment: <100 mg/dL, Optimal 100-129 mg/dL, Near optimal/above optimal 130-159 mg/dL, Borderline high 160-189 mg/dL, High >189 mg/dL, Very high Secondary prevention optimal LDL Cholesterol levels are recommended to be < 70 mg/dL Performed By: #### 2 4321-2, 04594-6 ####[facility] LABIA [id number] [place] [id number] [facility] Cholesterol in LDL/Cholesterol in HDL [Mass ratio] 2.40 {ratio} Normal <2.54 [facility] Comment on above: Order Comment: Lena diaz Type: BLOOD SPECIMENOrdering Facility: [facility] Address: [address] [place] [address] Result Comment: Tegan chapa: 1. National Cholesterol Education Program ATP III Guideline At-A-Glance Quick Desk Reference: National Heart, Lung, and Blood Peel. National Institutes of Health. 2001: NIH Publication No. 01-3305. 2. An International Atherosclerosis Society position paper: global recommendations for the management of dyslipidemia: executive summary, Atherosclerosis. 2014: 232(2):410-413. Performed By: #### 2 4321-2, 18892-5 ####[facility] LABCLIA [id number] [address] [place] [address] [place] Cholesterol in VLDL [Mass/Vol] 16 mg/dL Normal <30 [facility] Comment on above: Order Comment: Speci men Type: BLOOD SPECIMENOrdering Facility: [facility] Address: [address] [place] [address] Performed By: #### 2 4320-2, 27182-8 ####[facility] LABCLIA [id number] [address] [place] [address] [place] Cholesterol non HDL [Mass/Vol] 141 mg/dL High <130 [facility] Comment on above: Order Comment: Speci men Type: BLOOD SPECIMENOrdering Facility: [facility] Address: [address] [place] [address] Result Comment: <130 mg/dL, Optimal 130-159 mg/dL, Near optimal/above optimal 160-189 mg/dL, Borderline high 190-219 mg/dL, High >219 mg/dL, Very high Secondary prevention optimal non HDL Cholesterol levels are recommended to be <100 mg/dL Performed By: #### 2 4320-2, 12646-5 ####[facility] LABCLIA [id number] [address] [place] [address] [place] Cholesterol.total/Cris sterol in HDL [Mass ratio] 3.71 {ratio} Normal <5.10 [facility] Comment on above: Order Comment: Speci men Type: BLOOD SPECIMENOrdering Facility: [facility] Address: [address] [place] [id number] Performed By: #### 2 432-2, 45919-1 ####[facility] LABCLIA [id number] [address] [place] [address] [place] FASTING TIME 12 hrs Normal [facility] Comment on above: Order Comment: Speci men Type: BLOOD SPECIMENOrdering Facility: [facility] Address: [address] [place], [place] [address] [id number] Performed By: #### 2 4321-2, 43508-0 ####[facility] LABCLIA [id number] [address] [place] OF [facility] Triglyceride [Mass/Vol] 79 mg/dL Normal <150 [facility] Comment on above: Order Comment: Speci men Type: BLOOD SPECIMENOrdering Facility: [facility] Address: [address] [place] [address] Result Comment: <150 mg/dL, Normal 150-199 mg/dL, Borderline high 200-499 mg/dL, High >499 mg/dL, Very high Performed By: #### 2 4321-2, 19532-9 ####[facility] LABCLIA [id number] [address] [place] CNOVon 12-02-2024 CNOV Office Visit (WCTRMN ) KATE REED ([id number]) 1975 F Date Time Provider Department 12/02/24 [...] old. 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 Ann-Marie Brooks in [facility] (she lives [place]5 hours from [facility]). Had Crossword Puzzle Maker exam with Gena Thompson CNP at [facility] today. Her priorities are: VMS and weight gain VMS started around age 44 (5 years ago), while on 12/07 cyclically. Bad symptoms even on active pills. H/o endometriosis, s/p laparoscopic surgery for pelvic endometriosis done. S/p cholecystectomy. weight gain for 3 years. Usual weight 150-160 lbs, today 171 lbs. Denies GSM. Has been on OCP since teenager. Tried some options with local [employer] [facility] as noted below but plagued with BTB. [...] COLPO OF CERVIX INC UPPER VAG 11/2005 ESOPHAGOGASTRODUODENOS COPY TRANSORAL DIAGNOSTIC 09/16/2013 EGD LAPS ABD PRTMANDOMENTUM [...] Never Smok (more content not included)... Normal [facility] CNOV Office Visit (GYNMN) KATE REED ([id number]) 1975 F Date Time Provider Department 12/02/24 10:15 AM GENA THOMPSON GYNMN During your visit today, we recorded the following information about you: Pulse Blood pressure Weight Height 71/minute 136/74 78 kg 1.676 m Last Period 11/14/24 Gena Thompson APRN.CNM 12/02/2024 10:44 AM Signed Kate is a 49 year old who presents for an annual gynecologic exam without complaints. Still get period: Yes, OCPs Bleeding amount bothersome: No Bleeding between periods: No Period symptoms: Cramps Menopause symptoms: Hot flashes; Night sweats HPV vaccine: No; HPV:negative Last pap smear: 09/01/2023 done in [facility] History of abnormal pap: Yes, history of abnormal PAP smears Hx of positive HPV many years ago Bothersome pelvic pain: No Last mammogram: 2023 normal Done [facility] Patient concerns for STD exposure: No. Mood swings: No Insomnia: Yes Hemorrhoidectomy 6 weeks ago and still having tenderness with bowel movements Seeing Dr. Munoz later this morning to discuss perimenopause symptoms. OB History T2 L2 SAB0 IAB0 Ectopic0 Multiple0 Live Births0 Crossword Puzzle Maker History LMP: 11/14/2024, Having periods Age at Menarche: 12 Age at First : Age at Menopause: Crossword Puzzle Maker History Comments: Sexual Activity: Yes; Male Contraception: [...] COLPO OF CERVIX INC UPPER VAG 11/2005 ESOPHAGOGASTRODUODENOS COPY TRANSORAL DIAGNOSTIC 09/16/2013 EGD LAPS ABD PRTMANDOMENTUM [...] discussed with the Patient or Patient's Authorized Enrichment Director. As applicable, any other physician, advance practice provider, medical student, or other health professional student that will be observing or involved in the sensitive examination for educational or training purposes was discussed with the Patient or Authorized Enrichment Director. The Patient or Authorized Enrichment Director has agreed to proceed with the sensitive [...] external genitalia normal, normal Bartholin's glands, urethra, [place]'s glands, no vulvar lesions, no cervical lesions, [...] Mammogram u (more content not included)... Normal [facility] HIGH RISK HUMAN PAPILLOMA YANETH (HPV), PCR FOR DETECTION AND GENOTYPINGon 12-02-2024 HPV 16 Ag Ql (Unsp spec) Not detected Normal Not detected [facility] Comment on above: Order Comment: Speci men Type: FLUID SPECIMENOrdering Facility: [facility] Address: [address] [place] [address] Performed By: #### H PVHRT ####[facility] LABCLIA [id number] [place] [address] [place] HPV 18 Ag Ql (Unsp spec) Not detected Normal Not detected [facility] Comment on above: Order Comment: Speci men Type: FLUID SPECIMENOrdering Facility: [facility] Address: [address] [place] [address] Performed By: #### H PVHRT ####[facility] [id number] [place] [address] [place] HPV 31+33+35+39+45+51+52+56 +58+59+66+68 DNA DESTINY+probe Ql (Cvx) Not detected Normal Not detected [facility] Comment on above: Order Comment: Speci men Type: FLUID SPECIMENOrdering Facility: [facility] Address: [address] [place] [address] Result Comment: High Risk HPV Other Type includes HPV types 31, 33, 35, 39, 45, 51, 52, 56, 58, 59, 66 and 68. Performed By: #### H PVHRT ####[facility] [id number] [place] [address] [place] PAP TESTon 12-02-2024 ADEQUACY Normal [facility] Comment on above: Order Comment: Speci men Type: FLUID SPECIMEN [facility] Address: [address] [place] [address] Result Comment: Sati sfactory for interpretation. No endocervical component Performed By: #### L [id number] #### [facility] CLIA [id number] [address] [place] [address] [place] CASE REPORT Normal [facility] Comment on above: Order Comment: Speci men Type: FLUID SPECIMEN [facility] Address: [address] [place] [address] Result Comment: Gyne cologic Cytology Report Case: [id number] Authorizing Provider: Gena Thompson APRN.CNAlejandra Collected: 12/02/2024 10:10 AM Ordering Location: Gynecology Received: 12/02/2024 01:14 PM First Screen: Aramouni, [place], [place], ASCP Specimen: Pap Test, ThinPrep, Cervix Performed By: #### L [id number] #### [facility] CLIA [id number] [address] [place] [address] [place] CLINICAL HISTORY, CYTOLOGY, OUTDOOR GUIDE Oral Contraceptives Normal [facility] Comment on above: Order Comment: Speci men Type: FLUID SPECIMEN [facility] Address: [address] [place] [address] Performed By: #### L [id number] #### [facility] CLIA [id number] [address] [place] [address] [place] FINAL PERFORMING LAB Normal [facility] Comment on above: Order Comment: Speci men Type: FLUID SPECIMEN [facility] Address: [address] [place] [address] Result Comment: Tech nical component, elementary school reading teacher screening performed at [facility], [address] [place], [place] [id number] CLIA# [id number] Diagnostic interpretation performed at [facility], [address] [place] [address] CLIA# [id number] Director Of Emergency Nursing: Josh Dimas M.D. Performed By: #### L [id number] #### [facility] CLIA [id number] [address] [place] [address] [place] INTERPRETATION, CYTOLOGY, OUTDOOR GUIDE Normal [facility] Comment on above: Order Comment: Speci men Type: FLUID SPECIMEN [facility] Address: [address] [place] [address] Result Comment: Nega tive for intraepithelial lesion or malignancy. Performed By: #### L [id number] #### [facility] CLIA [id number] [address] [place] [address] [place] LMP 11/14/2024 Normal [facility] Comment on above: Order Comment: Speci men Type: FLUID SPECIMEN [facility] Address: [address] [place] [address] Performed By: #### L [id number] #### [facility] CLIA [id number] [address] [place] [address] [place] PAP DISCLAIMER COMMENT The Pap Smear is a screening test for cervical cancer. False negative results occur with all screening tests, emphasizing the need for rescreening at recommended intervals, and clinical correlation. Normal [facility] Comment on above: Order Comment: Speci men Type: FLUID SPECIMEN [facility] Address: [address] [place] [address] Performed By: #### L [id number] #### [facility] CLIA [id number] [address] [place] [address] [place] PAP BIOTECH PRODUCTION SPECIALIST COMMENT This specimen has be en analyzed by the ThinPrep Imaging System, an automated imaging and review system, which assists the laboratory in evaluating cells on ThinPrep Pap tests. Following automated imaging, selected gutierrez from every slide are reviewed by a elementary school reading teacher. Normal [facility] Comment on above: Order Comment: Speci men Type: FLUID SPECIMEN [facility] Address: [address] [place] [address] Performed By: #### L [id number] #### [facility] CLIA [id number] [address] [id number] [place] CNOVon 11-17-2024 CNOV Office Visit (FAMPWS ) KATE REED ([id number]) 1975 F Date Time Provider Department 11/17/24 11:00 AM KATHERINE TIRADOPWS During your visit today, we recorded the [...] exam, mammogram this year. Last colonoscopy at [facility] in 2021, due in 10 years, [...] ORAL) Take by mouth once daily. JUNEL 12/07, , 1-20 mg-mcg per tablet [...] 3 LIPID PANEL BASIC [SQLIPB] Order #: [id number] FUTURE COMPLETE BLOOD COUNT AND DIFFERENTIAL [SQCBCDIF] Order #: [id number] FUTURE BASIC METABOLIC PANEL [SQBMP] Order #: [id number] FUTURE Prescriptions as of 11/17/2024 - citalopram [...] carb,citrate,oxide (MAG (more content not included)... Normal [facility] ANES POSTPROC EVALon 024 ANES POSTPROC EVAL HNO ID: [id number] Author: DEEPAK ALONSO MD Service: ? Author Type: Physician Type: Anesthesia Postprocedure Evaluation Filed: 10/23/2024 11:48 Note Text: POST ANESTHESIA EVALUATION NOTE : 1975 Procedure Summary Date: 10/23/24 Room / Location: [address] [facility] Anesthesia Start: 1043 Anesthesia Stop: 1143 Procedure: [...] October 23, 2024 TIME: 11:47 AM CSN: [id number] Normal [facility] ANES PRE-OPon 10-23-2024 ANES PRE-OP HNO ID: [id number] Author: DEEPAK ALONSO MD Service: ? Author Type: Physician Type: Anesthesia Preprocedure Evaluation Filed: 10/23/2024 10:47 Note Text: ANESTHESIOLOGY DAY OF SURGERY NOTE : 1975 Procedure Information Anesthesia Start Date/Time: 10/23/24 1043 Procedure: HEMORRHOIDECTOMY EXTERNAL AND INTERNAL 2 OR MORE COLUMNS/GROUPS (Anus) Location: [place] [address] / [facility] Surgeons: Lita Schultz MD Estimated body mass [...] and consent discussed: yes. Patient / Responsible Republican agrees to proceed: yes Patient / Surrogate [...] October 23, 2024 TIME: 10:47 AM CSN: [id number] Normal [facility] BRIEF OP NOTon 10-23-2024 BRIEF OP NOT HNO ID: [id number] Author: FRANKI DIEZ MD Service: Colorectal Author Type: Resident Type: Brief Op Note Filed: 10/23/2024 11:13 Note Text: BRIEF OPERATIVE NOTE - COLORECTAL SURGERY Log ID: [id number] Surgery/Procedure Date: 10/23/2024 Incision/Procedure Start Time: 10:56 AM Incision Close/Procedure End Time: 11:09 AM Surgeon(s) and Grease Refiner Operator(s): Surgeons and Role: * Lita Schultz MD - Primary * Franki Diez MD - Resident - Assisting No Additional Staff Procedures and Anesthesia: Procedure(s) and Anesthesia Type: * HEMORRHOIDECTOMY EXTERNAL AND INTERNAL 2 OR MORE COLUMNS/GROUPS - General Stoma Type: N/A Findings: Large posterior anal skin tag and RP internal hemorrhoid bundle. Nick Benson hemorrhoidectomy. LL skin tag excised. Estimated [...] October 23, 2024 TIME: 11:13 AM Normal [facility] Basic metabolic 2000 panelon 10-23-2024 Anion gap [Moles/Vol] 9 mmol/L Normal 8-15 [facility] Comment on above: Order Comment: Speci men Type: BLOOD SPECIMENOrdering Facility: [facility] Address: [address] [id number] Performed By: #### 2 4321-2 ####[facility] [id number] [place] [address] [place] Calcium [Mass/Vol] 8.3 mg/dL Low 8.5-10.2 [facility] Comment on above: Order Comment: Speci men Type: BLOOD SPECIMENOrdering Facility: [facility] Address: [address] [place] [address] Performed By: #### 2 4321-2 ####[facility] [id number] [place] [address] [place] Chloride [Moles/Vol] 104 mmol/L Normal 98-107 [facility] Comment on above: Order Comment: Speci men Type: BLOOD SPECIMENOrdering Facility: [facility] Address: [address] [place] [address] Performed By: #### 2 4321-2 ####[facility] [id number] [place] [address] [place] CO2 [Moles/Vol] 23 mmol/L Normal 22-30 [facility] Comment on above: Order Comment: Speci men Type: BLOOD SPECIMENOrdering Facility: [facility] Address: [address] [place], [place] [id number] Performed By: #### 2 4321-2 ####[facility] [id number] [place] [id number] [place] Creatinine [Mass/Vol] 0.56 mg/dL Low 0.58-0.96 [facility] Comment on above: Order Comment: Speci men Type: BLOOD SPECIMENOrdering Facility: [facility] Address: [address] [place], [place] [address] Performed By: #### 2 4321-2 ####[facility] [id number] [place] [address] [place] Creatinine and Glomerular filtration rate.predicted panel (S/P/Bld) 111 mL/min/1.73m??? Normal >=60 [facility] Comment on above: Order Comment: Lena diaz Type: BLOOD SPECIMENOrdering Facility: [facility] Address: [address] [place] [address] Result Comment: Renata mated Glomerular Filtration Rate [...] actual GFR. Performed By: #### 2 4321-2 ####[facility] [id number] [place] [address] [place] Glucose [Mass/Vol] 89 mg/dL Normal 74-99 [facility] Comment on above: Order Comment: Lena perales Type: BLOOD SPECIMENOrdering Facility: [facility] Address: [address] [place] [address] Result Comment: The [place] Diabetes Association (ADA) provides guidance for cutoff [...] Standards of Medical Care in Diabetes 2016, [place] Diabetes Association. Diabetes Care. 2016.39(Suppl 1). Performed By: #### 2 4321-2 ####[facility] [id number] [place] [id number] [place] Potassium [Moles/Vol] Normal [facility] Comment on above: Order Comment: Speci men Type: BLOOD SPECIMENOrdering Facility: [facility] Address: [address] [place] [address] Result Comment: Unab le to assay due to interference from hemolysis. Suggest reorder as clinically indicated. Performed By: #### 2 4321-2 ####[facility] [id number] [place] [address] [place] Sodium [Moles/Vol] 136 mmol/L Normal 136-144 [facility] Comment on above: Order Comment: Speci men Type: BLOOD SPECIMENOrdering Facility: [facility] Address: [address] [place] [address] Performed By: #### 2 4321-2 ####[facility] [id number] [place] [address] [place] Urea nitrogen [Mass/Vol] 8 mg/dL Normal 7-21 [facility] Comment on above: Order Comment: Speci men Type: BLOOD SPECIMENOrdering Facility: [facility] Address: [address] [place] [address] Performed By: #### 2 4321-2 ####[facility]IA [id number] [place] [address] [place] HISTORY PHYSICALon 4 HISTORY PHYSICAL HNO ID: [id number] Author: FRANKI DIEZ MD Service: Colorectal Author [...] COLPO OF CERVIX INC UPPER VAG 11/2005 ESOPHAGOGASTRODUODENOS COPY TRANSORAL DIAGNOSTIC 09/16/2013 EGD LAPS ABD PRTMANDOMENTUM [...] October 23, 2024 TIME: 10:30 AM Normal [facility] OPERATIVE NOon 10-23-2024 OPERATIVE NO HNO ID: [id number] Author: LITA SCHULTZ MD Service: Colorectal Author Type: Physician Type: Operative Report Filed: 10/23/2024 11:26 Note Text: COLORECTAL SURGERY OPERATIVE NOTE OP NOTE LOG ID: [id number] Surgery/Procedure Date: 10/23/2024 Incision/Procedure Start Time: 10:56 AM Incision Close/Procedure End Time: 11:09 AM Surgeon(s)/Procedurali st(s) and Grease Refiner Operator(s): Surgeons and Role: * Lita Schultz MD [...] 23, 2024 TIME: 11:17 AM PAGER/CONTACT #: Shahrzad [facility] SURGICAL PATHOLOGYon 024 CASE REPORT Normal [facility] Comment on above: Order Comment: Speci men Type: TISSUE SPECIMEN [facility] Address: [address] [place] [address] Result Comment: Surg [facility] Pathology Report Case: [id number] Authorizing Provider: Lita Schultz MD Collected: 10/23/2024 11:03 AM Ordering Location: Admitting Received: 10/23/2024 02:46 PM Pathologist: Philippe Sher MD Specimen: Hemorrhoid, Resection Performed By: #### S #### [facility] CLIA [id number] [address] [place] [address] [place] CLINICAL HISTORY Normal [facility] Comment on above: Order Comment: Speci men Type: TISSUE SPECIMEN [facility] Address: [address] [place] [address] Result Comment: Pre- op diagnosis: External hemorrhoid [K64.4] Performed By: #### S #### [facility] CLIA [id number] [address] [place] [address] [place] FINAL DIAGNOSIS Normal [facility] Comment on above: Order Comment: Speci men Type: TISSUE SPECIMEN [facility] Address: [address] [place] [address] Result Comment: Nelson. Nelson nus, hemorrhoid, resection: -Anal tissue with ectatic blood vessels, consistent with hemorrhoid Performed By: #### S #### [facility] CLIA [id number] [address] [place] [address] [place] FINAL PERFORMING LAB Normal [facility] Comment on above: Order Comment: Speci men Type: TISSUE SPECIMEN [facility] Address: [address] [place] [address] Result Comment: Diag nostic interpretation performed at [facility], [address] [place] [address] CLIA# [id number] Director Of Emergency Nursing: Josh Dimas M.D. Performed By: #### S #### [facility] CLIA [id number] [address] [place] [address] [place] GROSS DESCRIPTION Normal [facility] Comment on above: Order Comment: Speci men Type: TISSUE SPECIMEN [facility] Address: [address] [place] [address] Result Comment: Cassia Marte emorrhoid, Resection Received fresh labeled hemorrhage, resection is an excision at anal mucosa measuring 3 x 2 x 0.5 cm. The mucosa is pink-purple and glistening. The lumen contains multiple dilated vessels filled with blood and blood clot. There are no areas of induration. Enrichment Director sections are submitted in cassette A1. ALYSON October 23, 2024 3:34 PM Gross examination performed at [facility], [address] [place] [address] Performed By: #### S #### [facility] CLIA [id number] [address] [place] [address] [place] STREP A MOLECULAR (POC)on Procedural Control Valid [facility] Strep A (POCT) Negative Negative [facility] XR Chest PA and Lateralon IMPRESSION: No acute radiographic abnormality. Academic Administrator: LEE Transcribe Date/Time: Sep 09 2024 2:47P Dictated by : LIZETT PALMER MD This examination was interpreted and the report reviewed and electronically signed by: LIZETT PALMER MD on Sep 09 2024 2:47PM [facility] DIVISION OF RADIOLOGY * * *Final Report* [...] soft tissues: Unremarkable. DIVISION OF RADIOLOGY Provider, [facility] - 09/09/2024 * * *Final Report* * [...] Unremarkable. IMPRESSION IMPRESSION: No acute radiographic abnormality. Academic Administrator: LEE Transcribe Date/Time: Sep 09 2024 2:47P Dictated by : LIZETT PALMER MD This examination was interpreted and the report reviewed and electronically signed by: LIZETT PALMER MD on Sep 09 2024 2:47PM EST [facility] Radiology Study observation (narrative) Joce dwyer [facility] XR Chest PA and LateralOrder ed By: Ccf Provider on 09-09-2024 [facility] US TRANSVAGINAL NON OBon US TRANSVAGINAL NON [...] 03/22/2024 3:20:09 PM Ordering Provider: ELAYNE Markham [facility] ([place]) .Auto Diffon 03-20-2024 Basophil, Absolute 0.0 10 3/mcL Normal 0.0-0.2 [facility] ([place]) Comment on above: Performed By: #### A SANDRA, CBC, ADIFF, TSH, CMP, GFR #### [address] [address] Basophils/100 WBC (Bld) 0.8 % Normal 0.0-2.5 A [facility] ([place]) Comment on above: Performed By: #### A SANDRA, CBC, ADIFF, TSH, CMP, GFR #### [address] [place], [place] [address] Eosinophil, Absolute 0.1 10 3/mcL Normal 0.0-0.4 [facility]) Comment on above: Performed By: #### A SANDRA, CBC, ADIFF, TSH, CMP, GFR #### [address] [address] Eosinophils/100 WBC (Bld) 1.6 % Normal 0.0-7.0 [facility] ([place]) Comment on above: Performed By: #### A SANDRA, CBC, ADIFF, TSH, CMP, GFR #### [address] [address] Lymphocyte, Absolute 0.5 10 3/mcL Low 0.8-3.9 [facility] ([place]) Comment on above: Performed By: #### A SANDRA, CBC, ADIFF, TSH, CMP, GFR #### [address] [address] Lymphocytes/100 WBC (Bld) 15.7 % Normal 10.0-50.0 [facility] ([place]) Comment on above: Performed By: #### A SANDRA, CBC, ADIFF, TSH, CMP, GFR #### [address] [address] Monocyte, Absolute 0.5 10 3/mcL Normal 0.2-1.0 [facility] ([place]) Comment on above: Performed By: #### A SANDRA, CBC, ADIFF, TSH, CMP, GFR #### [address] [address] Monocytes/100 WBC (Bld) 16.4 % High 1.7-13.0 [facility] ([place]) Comment on above: Performed By: #### A SANDRA, CBC, ADIFF, TSH, CMP, GFR #### [address] [address] Neutrophils/100 WBC (Bld) 65.5 % Normal 37.0-80.0 [facility] ([place]) Comment on above: Performed By: #### A SANDRA, CBC, ADIFF, TSH, CMP, GFR #### [address] [address] .GFRon 03-20-2024 GFR 113 ml/min/1.73sqm Normal [facility] ([place]) Comment on above: Result Comment: GFR Population [...] SANDRA, CBC, ADIFF, TSH, CMP, GFR #### [address] [address] GFR Non- 94 ml/min/1.73sqm Normal [facility] ([place]) Comment on above: Result Comment: GFR Population [...] SANDRA, CBC, ADIFF, TSH, CMP, GFR #### [address] [address] .NEUABSon 03-20-2024 Neutrophil, Absolute 2.2 10 3/mcL Low 2.9-6.2 [facility] ([place]) Comment on above: Performed By: #### A SANDRA, CBC, ADIFF, TSH, CMP, GFR #### [address] [id number] CBCon 03-20-2024 Erythrocyte distribution width (RBC) [Ratio] 12.9 % Normal 11.5-14.5 [facility] ([place]) Comment on above: Performed By: #### A SANDRA, CBC, ADIFF, TSH, CMP, GFR #### [place] [address] Hematocrit (Bld) [Volume fraction] 37.7 % Normal 37.0-47.0 [facility] ([place]) Comment on above: Performed By: #### A SANDAR, CBC, ADIFF, TSH, CMP, GFR #### [place] [address] Hgb 13.2 G/dL Normal 12.0-16.0 [facility] ([place]) Comment on above: Performed By: #### A SANDRA, CBC, ADIFF, TSH, CMP, GFR #### [address] [place] [address] MCH (RBC) [Entitic mass] 31.6 pg High 27.0-31.2 [facility] ([place]) Comment on above: Performed By: #### A SANDRA, CBC, ADIFF, TSH, CMP, GFR #### [place] [address] MCHC 35.1 G/dL Normal 33.0-37.0 [facility] ([place]) Comment on above: Performed By: #### A SANDRA, CBC, ADIFF, TSH, CMP, GFR #### [place] [address] MCV (RBC) [Entitic vol] 90.0 fL Normal 80.0-94.0 [facility] ([place]) Comment on above: Performed By: #### A SANDRA, CBC, ADIFF, TSH, CMP, GFR #### [place] [address] Platelet 264 10 3/mcL Normal 130-400 [facility] ([place]) Comment on above: Performed By: #### A SANDRA, CBC, ADIFF, TSH, CMP, GFR #### [address] [address] Platelet mean volume (Bld) [Entitic vol] 7.6 fL Normal 7.4-10.4 [facility] ([place]) Comment on above: Performed By: #### A SANDRA, CBC, ADIFF, TSH, CMP, GFR #### [address] [address] RBC 4.18 10 6/mcL Low 4.20-5.40 [facility] ([place]) Comment on above: Performed By: #### A SANDRA, CBC, ADIFF, TSH, CMP, GFR #### [address] [address] WBC 3.3 10 3/mcL Low 4.6-10.8 [facility] ([place]) Comment on above: Performed By: #### A SANDRA, CBC, ADIFF, TSH, CMP, GFR #### [address] [address] CMPon 03-20-2024 Albumin Level 3.8 G/dL Normal 3.5-5.0 [facility] ([place]) Comment on above: Performed By: #### A SANDRA, CBC, ADIFF, TSH, CMP, GFR #### [address] [address] Albumin/Globulin [Mass ratio] 1.3 {ratio} Normal 1.1-2.5 [facility]) Comment on above: Performed By: #### A SANDRA, CBC, ADIFF, TSH, CMP, GFR #### [address] [address] ALP [Catalytic activity/Vol] 76 U/L Normal 40-135 [facility] ([place]) Comment on above: Performed By: #### A SANDRA, CBC, ADIFF, TSH, CMP, GFR #### [address] [address] ALT [Catalytic activity/Vol] 23 U/L Normal 14-59 [facility] ([place]) Comment on above: Performed By: #### A SANDRA, CBC, ADIFF, TSH, CMP, GFR #### [address] [address] AST [Catalytic activity/Vol] 20 U/L Normal 10-40 [facility] ([place]) Comment on above: Performed By: #### A SANDRA, CBC, ADIFF, TSH, CMP, GFR #### [address] [address] Bili Total 0.2 mg/dL Normal 0.2-1.0 [facility] ([place]) Comment on above: Result Comment: Use of this assay is not recommended for patients undergoing treatment with eltrombopag due to the potential for falsely elevated results. Performed By: #### A SANDRA, CBC, ADIFF, TSH, CMP, GFR #### [address] [address] BUN/Creatinine Ratio 16 ratio Normal 7-27 [facility] ([place]) Comment on above: Performed By: #### A SANDRA, CBC, ADIFF, TSH, CMP, GFR #### [address] [address] Calcium [Mass/Vol] 9.0 mg/dL Normal 8.4-10.2 [facility] ([place]) Comment on above: Performed By: #### A SANDRA, CBC, ADIFF, TSH, CMP, GFR #### [address] [address] Chloride [Moles/Vol] 104 mmol/L Normal 98-107 [facility] ([place]) Comment on above: Performed By: #### A SANDRA, CBC, ADIFF, TSH, CMP, GFR #### [address] [address] CO2 [Moles/Vol] 29 mmol/L Normal 22-29 [facility] ([place]) Comment on above: Performed By: #### A SANDRA, CBC, ADIFF, TSH, CMP, GFR #### [address] [address] Creatinine [Mass/Vol] 0.67 mg/dL Normal 0.55-1.02 [facility] ([place]) Comment on above: Performed By: #### A SANDRA, CBC, ADIFF, TSH, CMP, GFR #### [address] [address] Electrolyte Balance 7.0 mEq/L Normal 4.0-15.0 [facility] ([place]) Comment on above: Performed By: #### A SANDRA, CBC, ADIFF, TSH, CMP, GFR #### [address] [address] Globulin 3.0 G/dL Normal [facility] ([place]) Comment on above: Performed By: #### A SANDRA, CBC, ADIFF, TSH, CMP, GFR #### [address] [address] Glucose [Mass/Vol] 90 mg/dL Normal 70-105 [facility] ([place]) Comment on above: Performed By: #### A SANDRA, CBC, ADIFF, TSH, CMP, GFR #### [address] [address] Potassium [Moles/Vol] 4.2 mmol/L Normal 3.5-5.1 [facility] ([place]) Comment on above: Performed By: #### A SANDRA, CBC, ADIFF, TSH, CMP, GFR #### [address] [address] Sodium [Moles/Vol] 140 mmol/L Normal 136-145 [facility] ([place]) Comment on above: Performed By: #### A SANDRA, CBC, ADIFF, TSH, CMP, GFR #### [address] [address] Total Protein 6.8 G/dL Normal 6.4-8.2 [facility] ([place] Comment on above: Performed By: #### A SANDRA, CBC, ADIFF, TSH, CMP, GFR #### [address] [address] Urea nitrogen [Mass/Vol] 11 mg/dL Normal 7-18 [facility] ([place] Comment on above: Performed By: #### A SANDRA, CBC, ADIFF, TSH, CMP, GFR #### [address] [place], [place] [address] LABORATORYOrdered By: SYSTEM SYSTEM on 03-20-2024 Albumin [...] Bilirubin [Mass/Vol] 0.2 mg/dL Normal 0.2 - 1 .0 mg/dL AO ADM SS Comment on above: Interpretive Data: U se of this assay is not recommended for patients undergoing treatment with eltrombopag due to the potential for falsely elevated results. Calcium [Mass/Vol] 9.0 mg/dL Normal 8.4 - 10. 2 mg/dL AO ADM SS Chloride [Moles/Vol] 104 mmol/L Normal 98 - 10 7 mmol/L AO ADM SS CO2 [Moles/Vol] 29 mmol/L Normal 22 - 29 mmol/L AO ADM SS Creatinine [Mass/Vol] 0.67 mg/dL Normal 0.55 - 1.02 mg/dL AO ADM SS Electrolyte Balance 7.0 mEq/L Normal 4.0 - 15 .0 mEq/L AO ADM SS Eosinophil, Absolute 0.1 103/mcL Normal 0.0 - 0 .4 10^3/mcL AO Workflow SS Eosinophils/100 WBC (Bld) [...] Lymphocyte, Absolute 0.5 103/mcL Low 0.8 - 3 .9 10^3/mcL AO Workflow SS Lymphocytes/100 WBC (Bld) [...] Neutrophil, Absolute 2.2 103/mcL Low 2.9 - 6 .2 10^3/mcL AO Workflow SS Neutrophils/100 WBC (Bld) [...] 03-20-2024 TSH Qn 1.55 m[IU]/L Normal 0.36-3.74 [facility] ([place] Comment on above: Performed By: #### A SANDRA, CBC, ADIFF, TSH, CMP, GFR #### [address] [address] STREP A MOLECULAR (POC)on Procedural Control Valid [facility] Strep A (POCT) Negative Negative [facility] No Panel Informationon 09-28 [facility] EMERGENCY REPORTon 2 EMERGENCY REPORT [facility] EMERGENCY ROOM REPORT NAME ACCOUNT SEX AGE ADMIT DISCHARGE PT MED. RECORD# NUMBER DATE DATE TYPE BRIANNA [id number] F 47 09/19/22 09/19/22 3 KATE [id number] ROOM: ER DATE OF : 1975 DICTATING [...] Frandy Benson DO 09/19/22 20:09 JOB #: [id number] Transcribed By: alejandra 09/20/22 07:45 Electronically signed by: NICKY Benson DO 09/20/22 18:09 Page 2 of 2 [facility] Emergency Room Report Normal [facility] Laboratory - Chemistry and C hemistry - challengeon 09-14-2022 HCG ( test) Ql (U) Negative [facility] Work Phone: Comment on above: Very dilute urine sp ecimens, as indicated by a low specificgravity, may not contain bottling equipment sales representative levels of hCG. If is still suspected, a first morning urinespecimen should be collected 48 hours later and tested. No Panel Informationon 08-02 Culture Urine 50,000 - 100,000 cfu/ml Mixed growth consistent with normal urogenital demian. [facility] Work Phone: UA DIP, URINE (POC)on 2021 BILIRUBIN UA (POCT) Negative Negative [facility] CLARITY UA (POCT) Clear [facility] COLOR UA (POCT) Yellow [facility] GLUCOSE UA (POCT) Negative Negative mg/dL [facility] HEMOGLOBIN/BLOOD UA (POCT) Trace-lysed Abnormal Negative [facility] KETONE UA (POCT) Negative Negative mg/dL [facility] LEUKOCYTES UA (POCT) Trace Abnormal Negative [facility] NITRITE UA (POCT) Negative Negative [facility] PH UA (POCT) 7.0 4.5 - 8.0 [facility] Protein Ql (U) Negative Negative mg/dL [facility] SPECIFIC GRAVITY UA (POCT) 1.015 1.005 - 1.030 [facility] UROBILINOGEN UA (POCT) 0.2 E.U./dL Melody l E.U./dL [facility] LABORATORYOrdered By: Shailesh Renee on 05-02-2022 [...] Urine SS LABORATORYOrdered By: Jaclyn Paul on 06-15-2022 Basophil, Absolute 0.0 103/mcL Invalid Interpretation Code [...] osseous erosion, or focal soft tissue swelling. Academic Administrator: LEE Transcribe Date/Time: Nov 24 2020 3:28P Dictated by : LALA ASKEW MD This examination was interpreted and the report reviewed and electronically signed by: LALA ASKEW MD on Nov 24 2020 3:30PM [facility] DIVISION OF RADIOLOGY * * *Final Report* [...] soft tissue swelling. DIVISION OF RADIOLOGY Provider, [facility] - 11/24/2020 * * *Final Report* [...] osseous erosion, or focal soft tissue swelling. Academic Administrator: [facility] Transcribe Date/Time: Nov 24 2020 3:28P Dictated by : LALA ASKEW MD This examination was interpreted and the report reviewed and electronically signed by: LALA ASKEW MD on Nov 24 2020 3:30PM EST [facility] Radiology Study observation (narrative) Joce dwyer [facility] XR Wrist - bilateral PA and Lateral and ObliqueOrdered By: Ccf Provider on 11-24-2020 [facility] Vital Signs Date Time Vital Sign Value Performing Clinician Facility 09-19-2025 18:43-0500 Diastolic Blood Pressure Non-Invasive 62 mm[Hg] RIKY POOLE DO [facility] 09-19-2025 18:43-0500 Heart rate 76 /min RIKY POOLE DO [facility] 09-19-2025 18:43-0500 Respiratory rate 16 /min RIKY POOLE DO [facility] 09-19-2025 18:43-0500 Systolic Blood Pressure Non-Invasive 102 mm[Hg] RIKY POOLE DO [facility] 09-19-2025 16:19-0500 Blood Pressure Cuff Size RIKY POOLE DO [facility] 09-19-2025 16:19-0500 Blood Pressure Location RIKY POOLE DO [facility] 09-19-2025 16:19-0500 Blood Pressure Method RIKY POOLE DO [facility] 09-19-2025 16:19-0500 Body temperature 98.24 [degF] RIKY POOLE DO [facility] 09-19-2025 16:19-0500 Diastolic Blood Pressure Non-Invasive 63 mm[Hg] RIKY ZULEMA DO [facility] 09-19-2025 16:19-0500 Heart rate 72 /min RIKY POOLE DO [facility] 09-19-2025 16:19-0500 Respiratory rate 16 /min RIKY POOLE DO [facility] 09-19-2025 16:19-0500 Systolic Blood Pressure Non-Invasive 93 mm[Hg] RIKY POOLE DO [facility] 09-08-2025 11:33-0400 Body temperature 98 [degF] Dr. Carol Lebron MD Work Phone: 9(103)[phone] [place] [address] 09-08-2025 11:33-0400 Diastolic blood pressure 79 mm[Hg] Dr. Carol Lebron MD Work Phone: 5(094)[phone] [place] [address] 09-08-2025 11:33-0400 Heart rate 70 /min Dr. Carol Lebron MD Work Phone: 5(459)450-490185 [place] [address] 09-08-2025 11:33-0400 Respiratory rate 14 /min Dr. Carol Lebron MD Work Phone: 6(407)812-583985 [place] [address] 09-08-2025 11:33-0400 SaO2% (BldA) [Mass fraction] 99 % Dr. Carol Lebron MD Work Phone: 3(915)729-129467 [place] [address] 09-08-2025 11:33-0400 Systolic blood pressure 105 mm[Hg] Dr. Carol Lebron MD Work Phone: 1(437)343-963767 [place] [address] 09-08-2025 07:55-0400 Body height 167.[address] Carol Lebron MD Work Phone: 8(403)[phone] [place] [address] 09-08-2025 07:55-0400 Body mass index (BMI) [Ratio] 27 kg/m2 Dr. Carol Lebron MD Work Phone: 2(652)341-988267 [place] [address] 09-08-2025 07:55-0400 Body weight 75.[address] Carol Lebron MD Work Phone: 2(772)871-994885 [place] [address] 07-14-2025 08:43-0400 Body mass index (BMI) [Ratio] 28.5 kg/m2 Amanda Ewing PA-C Work Phone: [facility] 07-14-2025 08:43-0400 Body weight 80.11 kg Amanda Ewing PA-C Work Phone: [facility] 07-14-2025 08:43-0400 Respiratory rate 16 /min Amanda Ewing PA-C Work Phone: [facility] 07-14-2025 08:43-0400 SaO2% (BldA) [Mass fraction] 97 % Amanda Ewing PA-C Work Phone: [facility] 04-13-2025 09:57-0400 Body height 167.6 cm Jovi Kiser KEYBOARDING CLERK.DELIVERY DIRECTOR Work Phone: [facility] 04-13-2025 09:57-0400 Body mass index (BMI) [Ratio] 29.5 kg/m2 Jovi Kiser KEYBOARDING CLERK.DELIVERY DIRECTOR Work Phone: [facility] 04-13-2025 09:57-0400 Body temperature 97.7 [degF] Jovi Kiser KEYBOARDING CLERK.DELIVERY DIRECTOR Work Phone: [facility] 04-13-2025 09:57-0400 Body weight 82.92 kg Jovi Kiser KEYBOARDING CLERK.DELIVERY DIRECTOR Work Phone: [facility] 04-13-2025 09:57-0400 Diastolic blood pressure 70 mm[Hg] Jovi Kiser KEYBOARDING CLERK.DELIVERY DIRECTOR Work Phone: [facility] 04-13-2025 09:57-0400 Heart rate 78 /min Jovi Kiser KEYBOARDING CLERK.DELIVERY DIRECTOR Work Phone: [facility] 04-13-2025 09:57-0400 SaO2% (BldA) [Mass fraction] 99 % Jovi Kiser KEYBOARDING CLERK.DELIVERY DIRECTOR Work Phone: [facility] 04-13-2025 09:57-0400 Systolic blood pressure 124 mm[Hg] Jovi Kiser KEYBOARDING CLERK.DELIVERY DIRECTOR Work Phone: [facility] 04-05-2025 15:15-0400 Body mass index (BMI) [Ratio] 29.8 kg/m2 Carol Lebron MD Work Phone: [facility] 04-05-2025 15:15-0400 Body weight 83.73 kg Carol Lebron MD Work Phone: [facility] 04-05-2025 15:15-0400 Diastolic blood pressure 82 mm[Hg] Carol Lebron MD Work Phone: [facility] 04-05-2025 15:15-0400 Heart rate 89 /min Carol Lebron MD Work Phone: [facility] 04-05-2025 15:15-0400 Respiratory rate 16 /min Carol Lebron MD Work Phone: [facility] 04-05-2025 15:15-0400 SaO2% (BldA) [Mass fraction] 97 % Carol Lebron MD Work Phone: [facility] 04-05-2025 15:15-0400 Systolic blood pressure 138 mm[Hg] Carol Lebron MD Work Phone: [facility] 02-04-2025 15:51-0400 Body height 167.6 cm Lita Schultz MD Work Phone: [facility] 02-04-2025 15:51-0400 Body mass index (BMI) [Ratio] 29.7 kg/m2 Lita Schultz MD Work Phone: [facility] 02-04-2025 15:51-0400 Body weight 83.46 kg Lita Schultz MD Work Phone: [facility] 12-02-2024 11:16-0500 Body height 167.6 cm Ashlee Munoz MD Work Phone: [facility] 12-02-2024 11:16-0500 Body mass index (BMI) [Ratio] 27.75 kg/m2 Ashlee Munoz MD Work Phone: [facility] 12-02-2024 11:16-0500 Body weight 78 kg Ashlee Munoz MD Work Phone: [facility] 12-02-2024 11:16-0500 Diastolic blood pressure 74 mm[Hg] Ashlee Munoz MD Work Phone: [facility] 12-02-2024 11:16-0500 Heart rate 71 /min Ashlee Munoz MD Work Phone: [facility] 12-02-2024 11:16-0500 Systolic blood pressure 136 mm[Hg] Ashlee Munoz MD Work Phone: [facility] 12-02-2024 09:44-0500 Body height 167.6 cm Gena Thompson KEYBOARDING CLERK.CNM Work Phone: [facility] 12-02-2024 09:44-0500 Body mass index (BMI) [Ratio] 27.76 kg/m2 Gena Thompson KEYBOARDING CLERK.CNM Work Phone: [facility] 12-02-2024 09:44-0500 Body weight 78.02 kg Gena Thompson KEYBOARDING CLERK.CNM Work Phone: [facility] 12-02-2024 09:44-0500 Diastolic blood pressure 74 mm[Hg] Gena Thompson KEYBOARDING CLERK.CNM Work Phone: [facility] 12-02-2024 09:44-0500 Heart rate 71 /min Gena Thompson KEYBOARDING CLERK.CNM Work Phone: [facility] 12-02-2024 09:44-0500 Systolic blood pressure 136 mm[Hg] Gena Thompson KEYBOARDING CLERK.CNM Work Phone: [facility] 11-17-2024 11:05-0500 Body height 167.6 cm Katherine Bogner PA-C Work Phone: [facility] 11-17-2024 11:05-0500 Body mass index (BMI) [Ratio] 27.76 kg/m2 Katherine Bogner PA-C Work Phone: [facility] 11-17-2024 11:05-0500 Body weight 78.02 kg Katherine Bogner PA-C Work Phone: [facility] 11-17-2024 11:05-0500 Diastolic blood pressure 70 mm[Hg] Katherine Bogner PA-C Work Phone: [facility] 11-17-2024 11:05-0500 Heart rate 98 /min Katherine Bogner PA-C Work Phone: [facility] 11-17-2024 11:05-0500 Respiratory rate 12 /min Katherine Bogner PA-C Work Phone: [facility] 11-17-2024 11:05-0500 SaO2% (BldA) [Mass fraction] 98 % Katherine Bogner PA-C Work Phone: [facility] 11-17-2024 11:05-0500 Systolic blood pressure 112 mm[Hg] Katherine Bogner PA-C Work Phone: [facility] 09-14-2024 08:14-0400 Body mass index (BMI) [Ratio] 29.18 kg/m2 Nelly Praisler-Wood KEYBOARDING CLERK.DELIVERY DIRECTOR Work Phone: [facility] 09-14-2024 08:14-0400 Body temperature 98.71 [degF] Nelly Praisler-Wood KEYBOARDING CLERK.DELIVERY DIRECTOR Work Phone: [facility] 09-14-2024 08:14-0400 Body weight 82 kg Nelly Praisler-Wood KEYBOARDING CLERK.DELIVERY DIRECTOR Work Phone: [facility] 09-14-2024 08:14-0400 Diastolic blood pressure 84 mm[Hg] Nelly Praisler-Wood KEYBOARDING CLERK.DELIVERY DIRECTOR Work Phone: [facility] 09-14-2024 08:14-0400 Heart rate 93 /min Nelly Praisler-Wood KEYBOARDING CLERK.DELIVERY DIRECTOR Work Phone: [facility] 09-14-2024 08:14-0400 Respiratory rate 16 /min Nelly Praisler-Wood KEYBOARDING CLERK.DELIVERY DIRECTOR Work Phone: [facility] 09-14-2024 08:14-0400 SaO2% (BldA) [Mass fraction] 97 % Nelly Taylor KEYBOARDING CLERK.DELIVERY DIRECTOR Work Phone: [facility] 09-14-2024 08:14-0400 Systolic blood pressure 124 mm[Hg] Nelly Taylor KEYBOARDING CLERK.DELIVERY DIRECTOR Work Phone: [facility] 09-09-2024 13:58-0400 Body mass index (BMI) [Ratio] 29.25 kg/m2 Nicko Eagle MD Work Phone: [facility] 09-09-2024 13:58-0400 Body temperature 99.39 [degF] Nicko Eagle MD Work Phone: [facility] 09-09-2024 13:58-0400 Body weight 82.2 kg Nicko Eagle MD Work Phone: [facility] 09-09-2024 13:58-0400 Diastolic blood pressure 80 mm[Hg] Nicko Eagle MD Work Phone: [facility] 09-09-2024 13:58-0400 Heart rate 102 /min Nicko Eagle MD Work Phone: [facility] 09-09-2024 13:58-0400 Respiratory rate 18 /min Nicko Eagle MD Work Phone: [facility] 09-09-2024 13:58-0400 SaO2% (BldA) [Mass fraction] 99 % Nicko Eagle MD Work Phone: [facility] 09-09-2024 13:58-0400 Systolic blood pressure 128 mm[Hg] Nicko Eagle MD Work Phone: [facility] 07-23-2024 13:52-0400 Body height 167.6 cm Lita Schultz MD Work Phone: [facility] 07-23-2024 13:52-0400 Body mass index (BMI) [Ratio] 27.92 kg/m2 Lita Schultz MD Work Phone: [facility] 07-23-2024 13:52-0400 Body temperature 97.59 [degF] Lita Schultz MD Work Phone: [facility] 07-23-2024 13:52-0400 Body weight 78.47 kg Lita Schultz MD Work Phone: [facility] 07-23-2024 13:52-0400 Diastolic blood pressure 67 mm[Hg] Lita Schultz MD Work Phone: [facility] 07-23-2024 13:52-0400 Heart rate 82 /min Lita Schultz MD Work Phone: [facility] 07-23-2024 13:52-0400 Respiratory rate 17 /min Lita Schultz MD Work Phone: [facility] 07-23-2024 13:52-0400 SaO2% (BldA) [Mass fraction] 99 % Lita Schultz MD Work Phone: [facility] 07-23-2024 13:52-0400 Systolic blood pressure 135 mm[Hg] Lita Schultz MD Work Phone: [facility] 04-02-2024 07:57-0400 Body height 167.[address] MATTI JOHNSON MD [facility] 04-02-2024 07:57-0400 Body temperature 97.16 [degF] DR MATTI JOHNSON MD [facility] 04-02-2024 07:57-0400 Body weight 78.[address] MATTI JOHNSON MD [facility] 04-02-2024 07:57-0400 Diastolic Blood Pressure Non-Invasive 82 mm[Hg] DR MATTI JOHNSON MD [facility] 04-02-2024 07:57-0400 Heart rate 88 /min DR MATTI JOHNSON MD [facility] 04-02-2024 07:57-0400 Respiratory rate 16 /min DR MATTI JOHNSON MD [facility] 04-02-2024 07:57-0400 Systolic Blood Pressure Non-Invasive 123 mm[Hg] DR MATTI JOHNSON MD [facility] 05-30-2023 08:17-0400 Body temperature 98.4 [degF] Sita Athy PA-C Work Phone: [facility] 05-30-2023 08:17-0400 Body weight 81.65 kg Sita Athy PA-C Work Phone: [facility] 05-30-2023 08:17-0400 Diastolic blood pressure 78 mm[Hg] Sita Athy PA-C Work Phone: [facility] 05-30-2023 08:17-0400 Heart rate 82 /min Sita Athy PA-C Work Phone: [facility] 05-30-2023 08:17-0400 Respiratory rate 21 /min Sita Athy PA-C Work Phone: [facility] 05-30-2023 08:17-0400 SaO2% (BldA) [Mass fraction] 99 % Sita Athy PA-C Work Phone: [facility] 05-30-2023 08:17-0400 Systolic blood pressure 120 mm[Hg] Sita Athy PA-C Work Phone: [facility] 12-07-2022 16:33-0500 Body temperature 98.2 [degF] Frandy Smith Jr., MD Work Phone: [facility] 12-07-2022 16:33-0500 Body weight 78.83 kg Frandy Smith Jr., MD Work Phone: [facility] 12-07-2022 16:33-0500 Diastolic blood pressure 72 mm[Hg] Frandy Smith Jr., MD Work Phone: [facility] 12-07-2022 16:33-0500 Heart rate 90 /min Frandy Smith Jr., MD Work Phone: [facility] 12-07-2022 16:33-0500 Respiratory rate 16 /min Frandy Smith Jr., MD Work Phone: [facility] 12-07-2022 16:33-0500 SaO2% (BldA) [Mass fraction] 98 % Frandy Smith Jr., MD Work Phone: [facility] 12-07-2022 16:33-0500 Systolic blood pressure 108 mm[Hg] Frandy Smith Jr., MD Work Phone: [facility] 09-14-2022 09:21-0400 Body temperature 97.3 [degF] Dr. Dalton Mcfarland Work Phone: [facility] Work Phone: 09-14-2022 09:21-0400 Diastolic blood pressure 63 mm[Hg] Dr. Dalton Mcfarland Work Phone: [facility] Work Phone: 09-14-2022 09:21-0400 Heart rate 63 /min Dr. Dalton Mcfarland Work Phone: [facility] Work Phone: 09-14-2022 09:21-0400 Respiratory rate 16 /min Dr. Dalton Mcfarland Work Phone: [facility] Work Phone: 09-14-2022 09:21-0400 SaO2% (BldA) [Mass fraction] 100 % Dr. Dalton Mcfarland Work Phone: [facility] Work Phone: 09-14-2022 09:21-0400 Systolic blood pressure 105 mm[Hg] Dr. Dalton Mcfarland Work Phone: [facility] Work Phone: 09-14-2022 07:52-0400 Body height 167.[address] Dalton Mcfarland Work Phone: [facility] Work Phone: 09-14-2022 07:52-0400 Body mass index (BMI) [Ratio] 26.5 kg/m2 Dr. Dalton Mcfarland Work Phone: [facility] Work Phone: 09-14-2022 07:52-0400 Body weight 74.[address] Dalton Mcfarland Work Phone: [facility] Work Phone: 08-03-2022 16:29-0400 Body temperature 98.91 [degF] Gino Man KEYBOARDING CLERK.DELIVERY DIRECTOR Work Phone: [facility] 08-03-2022 16:29-0400 Body weight 75.75 kg Gino Man KEYBOARDING CLERK.DELIVERY DIRECTOR Work Phone: [facility] 08-03-2022 16:29-0400 Diastolic blood pressure 88 mm[Hg] Gino Man KEYBOARDING CLERK.DELIVERY DIRECTOR Work Phone: [facility] 08-03-2022 16:29-0400 Heart rate 83 /min Gino Man KEYBOARDING CLERK.DELIVERY DIRECTOR Work Phone: [facility] 08-03-2022 16:29-0400 Respiratory rate 16 /min Gino Man KEYBOARDING CLERK.DELIVERY DIRECTOR Work Phone: [facility] 08-03-2022 16:29-0400 SaO2% (BldA) [Mass fraction] 97 % Gino Man KEYBOARDING CLERK.DELIVERY DIRECTOR Work Phone: [facility] 08-03-2022 16:29-0400 Systolic blood pressure 126 mm[Hg] Gino Man KEYBOARDING CLERK.DELIVERY DIRECTOR Work Phone: [facility] 07-06-2022 10:57-0400 Body temperature 98.29 [degF] Nelly Taylor KEYBOARDING CLERK.DELIVERY DIRECTOR Work Phone: [facility] 07-06-2022 10:57-0400 Body weight 76.2 kg Nelly Praisler-Wood KEYBOARDING CLERK.DELIVERY DIRECTOR Work Phone: [facility] 07-06-2022 10:57-0400 Diastolic blood pressure 70 mm[Hg] Nelly Praisler-Wood KEYBOARDING CLERK.DELIVERY DIRECTOR Work Phone: [facility] 07-06-2022 10:57-0400 Heart rate 86 /min Nelly Praisler-Wood KEYBOARDING CLERK.DELIVERY DIRECTOR Work Phone: [facility] 07-06-2022 10:57-0400 Respiratory rate 16 /min Nelly Praisler-Wood KEYBOARDING CLERK.DELIVERY DIRECTOR Work Phone: [facility] 07-06-2022 10:57-0400 SaO2% (BldA) [Mass fraction] 99 % Nelly Praisler-Wood KEYBOARDING CLERK.DELIVERY DIRECTOR Work Phone: [facility] 07-06-2022 10:57-0400 Systolic blood pressure 122 mm[Hg] Nelly Praisler-Wood KEYBOARDING CLERK.DELIVERY DIRECTOR Work Phone: [facility] 05-07-2022 13:48-0400 Body weight 76.66 kg Jacy Newman KEYBOARDING CLERK.POT RUNNER Work Phone: [facility] 05-07-2022 13:48-0400 Diastolic blood pressure 80 mm[Hg] Jacy Newman KEYBOARDING CLERK.POT RUNNER Work Phone: [facility] 05-07-2022 13:48-0400 Heart rate 70 /min Jacy Newman KEYBOARDING CLERK.POT RUNNER Work Phone: [facility] 05-07-2022 13:48-0400 Respiratory rate 16 /min Jacy Newman KEYBOARDING CLERK.POT RUNNER Work Phone: [facility] 05-07-2022 13:48-0400 SaO2% (BldA) [Mass fraction] 97 % Jcay Newman KEYBOARDING CLERK.POT RUNNER Work Phone: [facility] 05-07-2022 13:48-0400 Systolic blood pressure 120 mm[Hg] Jacy Newman KEYBOARDING CLERK.POT RUNNER Work Phone: [facility] 05-02-2022 19:16-0400 Heart rate 74 /min MICHAEL DURESKA DO [facility] 05-02-2022 19:16-0400 Respiratory rate 17 /min MICHAEL DURESKA DO [facility] 05-02-2022 16:15-0400 Body height 167.6 cm MICHAEL DURESKA DO [facility] 05-02-2022 16:15-0400 Body temperature 98.06 [degF] MICHAEL DURESKA DO [facility] 05-02-2022 16:15-0400 Body weight 75 kg MICHAEL DURESKA DO [facility] 05-02-2022 16:15-0400 Diastolic blood pressure 80 mm[Hg] MICHAEL DURESKA DO [facility] 05-02-2022 16:15-0400 Heart rate 79 /min MICHAEL DURESKA DO [facility] 05-02-2022 16:15-0400 Respiratory rate 24 /min MICHAEL DURESKA DO [facility] 05-02-2022 16:15-0400 Systolic blood pressure 136 mm[Hg] MICHAEL DURESKA DO [facility] 04-06-2022 11:23-0400 Body height 167.6 cm Erinn Benítezgand KEYBOARDING CLERK.DELIVERY DIRECTOR Work Phone: [facility] 04-06-2022 11:23-0400 Body weight 77.11 kg Erinn Benítezgand KEYBOARDING CLERK.DELIVERY DIRECTOR Work Phone: [facility] 04-06-2022 11:23-0400 Diastolic blood pressure 70 mm[Hg] Erinn Mick KEYBOARDING CLERK.DELIVERY DIRECTOR Work Phone: [facility] 04-06-2022 11:23-0400 Systolic blood pressure 110 mm[Hg] Erinn Mick KEYBOARDING CLERK.DELIVERY DIRECTOR Work Phone: [facility] 03-27-2022 08:00-0400 Body height 167.6 cm Carmen Tony MD Work Phone: [facility] 03-27-2022 08:00-0400 Body temperature 98.71 [degF] Carmen Tony MD Work Phone: [facility] 03-27-2022 08:00-0400 Body weight 77.11 kg Carmen Tony MD Work Phone: [facility] 03-27-2022 08:00-0400 Diastolic blood pressure 57 mm[Hg] Carmen Tony MD Work Phone: [facility] 03-27-2022 08:00-0400 Heart rate 107 /min Carmen Tony MD Work Phone: [facility] 03-27-2022 08:00-0400 SaO2% (BldA) [Mass fraction] 98 % Carmen Tony MD Work Phone: [facility] 03-27-2022 08:00-0400 Systolic blood pressure 114 mm[Hg] Carmen Tony MD Work Phone: [facility] 02-23-2022 12:58-0400 Body height 167.6 cm Dena Khanna MD Work Phone: [facility] 02-23-2022 12:58-0400 Body weight 75.3 kg Dena Khanna MD Work Phone: [facility] 02-23-2022 12:58-0400 Diastolic blood pressure 59 mm[Hg] Dena Khanna MD Work Phone: [facility] 02-23-2022 12:58-0400 Systolic blood pressure 116 mm[Hg] Dena Khanna MD Work Phone: [facility] 02-12-2022 13:31-0400 Body height 167.6 cm [facility] 02-12-2022 13:31-0400 Body weight 75.75 kg [facility] Encounters Encounter Date Encounter Type Care Provider Facility Start: 09-20-2025 End: 09-20-2025 ambulatory [facility] Facility:[facility] Start: 09-19-2025 End: 09-19-2025 Emergency department patient visit RIKYTALON POOLE [facility] Start: 09-08-2025 End: 09-08-2025 [facility] Facility[facility] Start: 08-31-2025 End: 08-31-2025 ambulatory KATHERINE TIRADO Facility:[facility] Start: 08-13-2025 End: 08-13-[address] Carol Lebron MD Work Phone: -Outpatient Breast Imaging Start: 08-13-2025 End: 08-13-[address] Carol Lebron MD -Outpatient Breast Imaging Work Phone: Start: 08-13-2025 End: 08-13-2025 ambulatory Carol Lebron Facility:[facility] Start: 08-09-2025 End: 08-09-[address] Carol Lebron MD Work Phone: -Outpatient Breast Imaging Start: 08-09-2025 End: 08-09-[address] Carol Lebron MD -Outpatient Breast Imaging Work Phone: Start: 08-09-2025 End: 08-09-2025 ambulatory [facility] Start: 07-14-2025 End: 07-14-2025 Patient encounter procedure Amanda Kaylin LYNCH Work Phone: Neurology Comment on above: Migraine without aur a and without status migrainosus, not intractable (Primary Dx); Persistent postural-perceptual dizziness; Vestibular migraine Start: 07-14-2025 End: 07-14-2025 ambulatory AMANDA FABIÁN Facility:[facility] Start: 05-06-2025 End: 07-06-2025 Follow-up encounter Carol Lebron MD Work Phone: [facility] [place] Start: 05-03-2025 End: 05-03-2025 [facility] Facility:[facility] Start: 04-13-2025 End: 04-13-2025 E-mail encounter from caregiver Jovi Kiser APRN.DELIVERY DIRECTOR Work Phone: Neurology Start: 04-13-2025 End: 04-13-2025 Telephone encounter Carol Lebron MD Work Phone: [facility] [place] Start: 04-13-2025 End: 04-13-2025 Patient encounter procedure Jovi Kiser APRN.DELIVERY DIRECTOR Work Phone: Neurology Comment on above: Persistent postural- perceptual dizziness (Primary Dx); Migraine without aura and without status migrainosus, not intractable Start: 04-13-2025 End: 04-13-2025 ambulatory Jovi Kiser APRN.DELIVERY DIRECTOR Work Phone: Neurology Comment on above: Toradol Start: 04-05-2025 End: 04-05-2025 Office outpatient visit 25 minutes Carol Lebron MD Work Phone: [facility] [place] Comment on above: Anxiety (Primary Dx) ; Screening for depression; Other decreased white blood cell (WBC) count; Other migraine without status migrainosus, not intractable; [facility] (current) use of hormonal 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 Start: 04-05-2025 End: 04-05-2025 [facility] Start: 04-05-2025 End: 06-05-2025 Follow-up encounter Carol Lebron MD Work Phone: Internal [facility] [place] Start: 04-03-2025 End: 04-03-2025 ambulatory CAROL LEBRON Facility:[facility] Start: 03-19-2025 End: 03-22-2025 Refill Carol Lebron MD Work Phone: Internal [facility] [place] Comment on above: Med Change Request Start: 03-02-2025 End: 05-02-2025 Follow-up encounter Katherine Tirado PA-C Work Phone: Family [facility] [place] Start: 02-25-2025 End: 02-25-2025 ambulatory CAROL LEBRON Facility:[facility] Start: 02-22-2025 End: 02-22-2025 ambulatory KATHERINE TIRADO Facility:[facility] Start: 02-21-2025 End: 02-23-2025 ambulatory Carol Lebron MD Work Phone: Internal Medicine [place] Comment on above: New depression meds Start: 02-04-2025 End: 02-04-2025 Office outpatient visit 25 minutes Lita Schulzt MD Work Phone: Colorectal Surgery Comment on above: Anal fissure (Primar y Dx) Start: 02-04-2025 End: 02-04-2025 ambulatory LITA SCHULTZ Facility:[facility] Start: 01-20-2025 End: 01-20-2025 ambulatory Carol Lebron MD Work Phone: Internal [facility] [place] Comment on above: Why more blood work? Start: 01-20-2025 End: 01-20-2025 Follow-up encounter Katherine Tirado PA-C Work Phone: [facility] [place] Comment on above: Abnormal WBC count ( Primary Dx) Start: 01-11-2025 End: 01-11-2025 ambulatory KATHERINE TIRADO Facility:[facility] Start: 12-16-2024 End: 12-16-2024 ambulatory JOSSIE LEW Facility:[facility] Start: 12-16-2024 End: 12-16-2024 Office outpatient new 60 minutes Jossie Lew MD Work Phone: Integrative and Lifestyle Medicine Comment on above: Abnormal weight gain (Primary Dx); Nutritional counseling Start: 12-04-2024 End: 12-04-2024 Admission to same day surgery center Radha Pham DELIVERY DIRECTOR Work Phone: Colorectal Surgery Comment on above: Postoperative examin ation (Primary Dx) Start: 12-04-2024 End: 12-04-2024 ambulatory RADHA PHAM Facility:[facility] Start: 12-04-2024 End: 12-04-2024 Telemedicine consultation with patient Radha Pham APRRobbieDELIVERY DIRECTOR Work Phone: Colorectal Surgery Start: 12-02-2024 End: 12-02-2024 ambulatory ASHLEE MUNOZ Facility:[facility] Start: 12-02-2024 End: 12-02-2024 Office outpatient visit 40 minutes Ashlee Munoz MD Work Phone: [facility] Comment on above: Perimenopause (Prima ry Dx); Perimenopausal vasomotor symptoms; Weight gain Start: 12-02-2024 End: 12-02-2024 ambulatory GENA THOMPSON Facility:[facility] Start: 12-02-2024 End: 12-02-2024 Female genitalia finding Gena Thompson APRN.CNM Work Phone: [facility] Work Phone: Start: 12-02-2024 End: 12-02-2024 Patient encounter procedure Gena Thompson APRN.CNM Work Phone: Gynecology Comment on above: Gynecologic exam nor mal (Primary Dx); Cervical cancer screening Start: 11-17-2024 End: 11-17-2024 Office outpatient visit 15 minutes Katherine Tirado PA-C Work Phone: Family [facility] [place] Comment on above: Elevated cholesterol (Primary Dx); Thunderclap headache Start: 11-17-2024 End: 11-17-2024 ambulatory KATHERINE TIRADO Facility:[facility] Start: 11-04-2024 End: 11-04-2024 Refill Monique Gonzales APRN.DELIVERY DIRECTOR Work Phone: Internal [facility] [place] Comment on above: Refill Request Start: 10-27-2024 End: 10-27-2024 Admission to same day surgery center Lita Schultz MD Work Phone: Colorectal Surgery Comment on above: Numbing suppository Start: 10-27-2024 End: 10-27-2024 ambulatory Lita Schultz MD Work Phone: Colorectal Surgery Start: 10-23-2024 End: 10-23-2024 ambulatory LITA SCHULTZ Facility:[facility] Start: 10-12-2024 End: 10-12-2024 ambulatory CAROL LEBRON Facility:[facility] Start: 09-14-2024 End: 09-14-2024 Patient encounter procedure Nelly Taylor APRN.DELIVERY DIRECTOR Work Phone: [facility] Comment on above: Sore throat (Primary Dx); Sinobronchitis Start: 09-09-2024 End: 09-09-2024 Subsequent hospital visit by physician Xr [facility] [place] Work Phone: Radiology Comment on above: Acute cough [R05.1] Start: 09-09-2024 End: 09-09-2024 Office outpatient visit 15 minutes Nicko Eagle MD Work Phone: [facility] Comment [...] hemorrhoid (Primary Dx); Hemorrhoidal skin tag Start: 07-13-2024 End: 07-16-2024 ambulatory Carol Lebron MD Work Phone: Internal Medicine [place] Start: 07-13-2024 End: 07-16-2024 Patient encounter procedure Carol Lebron MD Work Phone: Internal Medicine [place] Comment on above: Appointment with Silvina Presley/ You were not available Start: 04-02-2024 End: 04-02-2024 Emergency department patient visit PROSPER COBOS KEYBOARDING CLERK - DELIVERY DIRECTOR Facility:B Start: 04-02-2024 End: 04-02-2024 Emergency department patient visit DR MATTI JOHNSON MD [facility] Start: 03-20-2024 End: 03-21-2024 ambulatory PROSPER COBOS KEYBOARDING CLERK - DELIVERY DIRECTOR Facility:[facility] Start: 03-20-2024 End: 03-20-2024 Patient encounter procedure ELAYNE MARINO MD [facility] Start: 08-12-2023 Refill Frandy tsai MD Work Phone: Internal Medicine [place] Comment on above: Refill Request Start: 08-05-2023 End: 08-05-2023 ambulatory [facility] Work Phone: Start: 08-05-2023 End: 08-05-2023 Patient encounter procedure [facility]-Outpatient Breast Imaging Work Phone: Start: 05-30-2023 End: 05-30-2023 Patient encounter procedure Sita Garza PA-C Work Phone: [facility] Comment on above: Acute URI (Primary D x) Start: 05-01-2023 ambulatory Carol Maribel Dwyer Work Phone: [facility] [place] Comment on above: Ativan Start: 02-17-2023 Refill Frandy tsai MD Work Phone: Neurology Comment on above: Refill Request Start: 12-07-2022 End: 12-07-2022 Patient encounter procedure Frandy Smith MD Work Phone: Neurology Comment on above: Menstrual migraine w ithout status migrainosus, not intractable (Primary Dx); Migrainous dizziness Start: 11-14-2022 End: 11-14-2022 ambulatory Jovi Kiser APRN.DELIVERY DIRECTOR Work Phone: Neurology Comment on above: Menstrual migraine w ithout status migrainosus, not intractable (Primary Dx); Migrainous dizziness Start: 11-14-2022 End: 11-14-2022 Telemedicine consultation with patient Jovi Kiser DELIVERY DIRECTOR Work Phone: [place] Start: 10-20-2022 ambulatory [facility] Adult Neur ology Comment on above: gabapentin Start: 10-16-2022 End: 10-16-2022 ambulatory Galilea Unger'Baron PT [facility] Comment on above: Vertigo (Primary Dx) Start: 10-01-2022 End: 10-01-2022 ambulatory Jovi Kiser KEYBOARDING CLERK.DELIVERY DIRECTOR Work Phone: Adult Neurology Comment on above: Vertigo (Primary Dx) ; Menstrual migraine without status migrainosus, not intractable Start: 10-01-2022 End: 10-01-2022 Telemedicine consultation with patient Jovi Kiser ZURDO.DELIVERY DIRECTOR Work Phone: [facility] Start: 09-28-2022 End: 09-28-2022 Subsequent hospital visit by physician Mri Radio [facility] (I-Stat/1.5t) Work Phone: Radiology Comment on above: Vertigo [R42] Start: 09-20-2022 ambulatory Frandy tsai MD Work Phone: Neurology Comment on above: Moved up brain scans / Please moved up appt. Start: 09-20-2022 Telephone encounter Frandy Smith MD Work Phone: Neurology Comment on above: ER F/U Start: 09-19-2022 End: 09-19-2022 Emergency department patient visit DR FRANDY BENSON [facility] Start: 09-14-2022 Non-patient / Non-visit Dr. Torri Mcfarland Work Phone: [facility] Start: 09-14-2022 End: 09-14-2022 Admission to same day surgery center Dr. Dalton Mcfarland Work Phone: [facility]-Endoscopy Start: 09-14-2022 End: 09-14-[address] Dalton Mcfarland Work Phone: [facility] Work Phone: Start: 09-10-2022 Refill Frandy tsai MD Work Phone: Neurology Comment on above: Refill Request Start: 08-03-2022 End: 08-03-2022 Patient encounter procedure Gino Man APRN.CNP Work Phone: [facility] Comment on above: Rash (Primary Dx) Start: 08-02-2022 End: 08-06-2022 Outreach Lab ANN-MARIE BROOKS MD [facility] Start: 08-02-2022 End: 08-02-2022 ambulatory [facility] Work Phone: Start: 08-02-2022 End: 08-02-2022 Patient encounter procedure [facility]-Outpatient Breast Imaging Start: 08-01-2022 Refill Carol Dwyer Work Phone: [facility] [place] Comment on above: Refill Request Start: 07-30-2022 End: 07-30-2022 ambulatory Frandy Smith MD Work Phone: Neurology Comment on above: Vertigo (Primary Dx) ; Migraine without status migrainosus, not intractable, unspecified migraine type; Menstrual migraine without status migrainosus, not intractable; Cervicalgia; Spinal stenosis of cervical region Start: 07-30-2022 End: 07-30-2022 Telemedicine consultation with patient Frandy Smith Jr., MD Work Phone: [facility] [place] Start: 07-06-2022 End: 07-06-2022 Patient encounter procedure Nelly Taylor KEYBOARDING CLERK.DELIVERY DIRECTOR Work Phone: [facility] Comment on above: Urinary frequency (P rimary Dx) Start: 06-12-2022 ambulatory Carol Dwyer Work Phone: Internal [facility] [place] Comment on above: Covid19 Concern Start: 05-28-2022 Refill Silvina Presley KEYBOARDING CLERK .DELIVERY DIRECTOR Work Phone: [facility] [place] Comment on above: Refill Request Start: 05-07-2022 End: 05-07-2022 Patient encounter procedure Jacy Newman APRN.POT RUNNER Work Phone: Internal Medicine [place] Comment on above: Dizziness (Primary D x); Hx of migraines; Nausea Start: 05-03-2022 Telephone encounter Carol hicks MD Work Phone: Internal Medicine [place] Comment on above: Patient Request Start: 05-02-2022 End: 05-02-2022 Emergency department patient visit MICHAEL REJI DO [facility] Start: 05-02-2022 ambulatory Carol Dwyer Work Phone: Internal Medicine [place] Comment on above: Dizziness Start: 05-01-2022 ambulatory Carol Dwyer Work Phone: [facility] [place] Comment on above: migraines Start: 04-30-2022 Refill Carol Dwyer Work Phone: [facility] [place] Comment on above: Refill Request Start: 04-19-2022 Refill Carol Dwyer Work Phone: [facility] [place] Comment on above: Refill Request Start: 04-06-2022 End: 04-06-2022 Patient encounter procedure Erinn Micksantiago RENNER.DELIVERY DIRECTOR Work Phone: URO/Gynecology Comment on above: Postoperative [...] 02-27-2022 Evaluation and management of inpatient Erinn Anglinyuliya RENNER.DELIVERY DIRECTOR Work Phone: URO/Gynecology Comment on above: Postoperative [...] incontinence (Primary Dx) Start: 02-20-2022 Admission to same da y surgery center Dena Khanna MD Work Phone: URO/Gynecology Comment on above: surgery question Start: 02-20-2022 ambulatory Dena reich MD Work Phone: [facility] Start: 02-14-2022 End: 02-14-2022 ambulatory Nurse Crossword Puzzle Maker Work Phone: Gynecology Comment on above: Educational circumst ances (Primary Dx) Start: 02-14-2022 End: 02-14-2022 Telemedicine consultation with patient Nurse Crossword Puzzle Maker Work Phone: [facility] Start: 02-12-2022 End: 02-12-2022 Admission to establishment Pac Main Virtual [facility] Start: 02-12-2022 End: 02-12-2022 ambulatory [facility] Pre Anesthesia Comment on above: Preop examination (P rimary Dx); TOM (stress urinary incontinence, female) Start: 02-12-2022 End: 02-12-2022 Preprocedural examination done [facility] Pre Anesthesia Start: 02-08-2022 Telephone encounter Carmen Cano MD Work Phone: General Surgery Comment on above: 04-12-2022 COLON/EXT ERNAL HEMORRHOIDS LODI Start: 11-24-2020 End: 11-24-2020 Subsequent hospital visit by physician Xr [facility] [place] Work Phone: Radiology Comment on above: Bilateral wrist pain [M25.531, M25.532] Procedures Date Procedure Procedure Detail Performing Clinician Start: 09-08-2025 Urnls dip stick/tabl et reagent auto microscopy Dr. Carol Lebron MD Work Phone: Start: 09-08-[address] Carol Lebron MD Work Phone: Start: 08-13-[address] Carol Lebron MD Work Phone: Start: 08-09-2025 Screening mammography Yuliya Lebron MD Work Phone: Start: 04-05-2025 Adult depression scr eening assessment Carol Lebron MD Work Phone: Start: 01-11-2025 Lipid 1996 panel - S rigoberto or Plasma Carol Lebron MD Work Phone: Start: 09-14-2024 STREP A MOLECULAR (POC) Cameron Shah KEYBOARDING CLERK.DELIVERY DIRECTOR Work Phone: Start: 09-09-2024 Radiologic exam ches t 2 views Nicko Eagle MD Work Phone: Start: 07-22-2024 Lipid 1996 [...] et rgnt auto w/o microscopy Galilea Brunner KEYBOARDING CLERK.DELIVERY DIRECTOR Work Phone: Start: 02-16-2022 Pelvic sling ANN-MARIE Meek MD Comment on above: [facility] - Yuliya Carvajal Start: 10-24-2021 Adult depression scr eening assessment [facility] Start: 11-24-2020 Radex wrist complete minimum 3 views Todd Gold MD Work Phone: Start: 01-08-2018 Mammography [facility] Start: 09-16-2013 Colonoscopy [facility] Start: 11-18-2000 Colonoscopy MICHAEL MUÑOZ DO section MICHAEL SKYLANICKY PARKER DO Cholecystectomy MICHAEL CRUMSYLVESTER Nelson DO Plan of Treatment Date Care Activity Detail Author Start: 03-22-[address] [facility] Start: 01-11-2030 Lipid panel Lipid Screening [facility] Start: 12-02-2029 Screening for malignant neoplasm of cervix Cervical Cancer Screening [facility] Start: 07-22-2029 Lipid panel Lipid Screening [facility] Start: 03-22-2028 Lipid 1996 panel - Serum or Plasma Lipid Screening [facility] Start: 03-22-2028 Lipid panel Lipid Screening [facility] Start: 03-22-2028 [address] SCREEN [facility] Start: 01-11-2028 Diabetes Screening Diabetes Screening [facility] Start: 10-23-2027 Diabetes Screening Diabetes Screening [facility] Start: 07-30-2027 HPV TESTING HPV TESTING [facility] Start: 07-30-2027 PAP TESTING PAP TESTING [facility] Start: 07-30-2027 Screening for malignant neoplasm of cervix Cervical Cancer Screening [facility] Start: 07-22-2027 Diabetes Screening Diabetes Screening [facility] Start: 01-22-[address]ID SCREEN [facility] Start: 04-05-2026 Depression Screening Depression Screening [facility] Start: 01-18-2026 End: 01-18-2026 Follow-up encounter 01/18/2026 4:00 PM [facility] Neurology [address] [place] [address] Amanda Ewing PA-C [address] [place] [address] 6 MONTH FOLLOW UP Neurology Comment on above: 6 MONTH FOLLOW UP Start: 09-08-2025 [facility] Start: 09-08-2025 Enteric precautions [facility] Start: 07-19-2025 Influenza vaccination Influenza Vaccine (#1) [facility] Start: 07-14-2025 End: 07-14-2025 Patient encounter procedure 07/14/2025 8:30 AM EDT Office Visit Neurology [address] [place] [address] Amanda Ewing PA-C [address] [facility] [place] [address] Est care, provider left [facility] Neurology Comment on above: Est care, provider left [facility] Start: 06-22-2025 End: 06-22-2025 Patient encounter procedure 06/22/2025 9:00 AM EDT Office Visit Internal Medicine [place] [address] [facility] [place] [address] Carol Lebron MD [address] [facility] [place] [address] 2 mo follow up [facility] [place] Comment on above: 2 mo follow up Start: 05-03-2025 End: 05-03-2025 ambulatory 05/03/2025 10:00 AM EDT Results Only [place] [facility] [address] [facility] [place] [facility] [place] [address] [facility] Start: 04-27-2025 End: 04-27-2025 Patient encounter procedure 04/27/2025 12:00 PM EDT Office Visit [facility] [place] [address] [facility] [place] [address] Carol Lebron MD [address] [place] [address] 2 mo follow up [facility] [place] Comment on above: 2 mo follow up Start: 04-24-2025 End: 04-24-2025 ambulatory 04/24/2025 11:45 AM EDT Results Only [place] [facility] [address] [facility] [place] [address] CBC [place] [facility] Comment on above: CBC Start: 04-13-2025 End: 04-13-2025 Patient encounter procedure 04/13/2025 10:30 AM EDT Office Visit Neurology [address] [place] [id number] Jovi Kiser, ZURDO.DELIVERY DIRECTOR [address] [place] [address] Migraines and dizziness Neurology Comment on above: Migraines and dizziness Start: 04-05-2025 End: 07-05-2025 CBC W Auto Differential panel - Blood COMPLETE BLOOD COUNT AND DIFFERENTIAL Lab Routine Other decreased white blood cell (WBC) count Expected: 04/05/2025, Expires: 07/05/2025 [facility] Work Phone: Comment on above: Expected: 04/05/2025, Expires: Start: 04-02-2025 End: 04-02-2025 ambulatory 04/02/2025 11:30 AM EDT [facility] [address] [place], [place] [id number] Jossie Lew MD [address] [place] [address] [id number] Overall well being Integrative Medicine Comment on above: Overall well being Start: 03-03-2025 End: 03-03-2025 ambulatory 03/03/2025 5:30 PM EDT [facility] [address] [place] [address] Radha Bright PA-C [address] [place], [place] [id number] EW[facility] SMA CLASS #6 [facility] Comment on above: EWOH SMA CLASS #6 Start: 02-24-2025 End: 02-24-2025 ambulatory 02/24/2025 5:30 PM EDT [facility] [address] [place] [address] Radha Bright PA-C [address] [place] [address] [facility] SMA CLASS #5 [facility] Comment on above: EWOH SMA CLASS #5 Start: 02-22-2025 End: 02-22-2025 ambulatory 02/22/2025 7:45 AM EDT Results Only [facility] [address] [facility] [place] [address] [place] [facility] Start: 02-20-2025 End: 05-22-2025 CBC W Auto Differential panel - Blood COMPLETE BLOOD COUNT AND DIFFERENTIAL Lab Routine Abnormal WBC count Expected: 02/20/2025, Expires: 05/22/2025 [facility] Work Phone: Comment on above: Expected: 02/20/2025, Expires: Start: 02-17-2025 End: 02-17-2025 ambulatory 02/17/2025 5:30 PM EDT [facility] [address] [place] [address] Radha Bright PA-C [address] [place], [place] [id number] [facility] SMA CLASS #4 [facility] Comment on above: EWOH SMA CLASS #4 Start: 02-10-2025 End: 02-10-2025 ambulatory 02/10/2025 5:30 PM EDT [facility] [place] [address] Chioma Martinez MD [address] [place] [address] [facility] SMA CLASS #3 [facility] Comment on above: EW[facility] SMA CLASS #3 Start: 02-05-2025 DIABETES SCREEN DIABETES SCREEN [facility] Start: 02-05-2025 Diabetes Screening Diabetes Screening [facility] Start: 02-03-2025 End: 02-03-2025 ambulatory 02/03/2025 5:30 PM EDT [facility] [place] [address] Radha Bright PA-C [address] [place], [place] [id number] [facility] SMA CLASS #2 [facility] Comment on above: EWOH SMA CLASS #2 Start: 01-28-2025 End: 01-28-2025 ambulatory 01/28/2025 8:00 AM EDT Distance [facility] Endocrinology [address] [place] [address] Siva Freitas MD [address] [place] [address] Meds that can help vs hurt weight gain Endocrinology Comment on above: Meds that can help vs hurt weight gain Start: 01-27-2025 End: 01-27-2025 ambulatory 01/27/2025 5:30 PM EDT [facility] [address] [place] [address] Radha Bright PA-C [address] [place] [address] [facility] SMA CLASS #1 [facility] Comment on above: EWOH SMA CLASS #1 Start: 01-11-2025 End: 01-11-2025 ambulatory 01/11/2025 7:30 AM EST Results Only [facility] [address] [place] [address] [facility] Start: 12-04-2024 End: 12-04-2024 Admission to same day surgery center 12/04/2024 4:30 PM EST [facility] Colorectal Surgery [address] [address] Radha [place] APRN.DELIVERY DIRECTOR [address] [place] [address] Post Op Colorectal Surgery Comment on above: Post Op Start: 12-02-2024 End: 12-02-2024 Patient encounter procedure 12/02/2024 11:30 AM EST Office Visit [facility] [address] [address] Ashlee Munoz MD [address] [address] perimenopausal [facility] Comment on above: perimenopausal Start: 12-02-2024 End: 12-02-2024 Patient encounter procedure 12/02/2024 10:15 AM EST Office Visit Gynecology [address] [address] Gena Thompson APRN.CNM [address] [place] [address] ANNUAL Gynecology Comment on above: ANNUAL Start: 11-17-2024 End: 02-16-2025 Basic metabolic 2000 panel - Serum or Plasma BASIC METABOLIC PANEL Lab Routine Elevated cholesterol Expected: 11/17/2024, Expires: 02/16/2025 [facility] Comment on above: Expected: 11/17/2024, Expires: Start: 11-17-2024 End: 02-16-2025 CBC W Auto Differential panel - Blood COMPLETE BLOOD COUNT AND DIFFERENTIAL Lab Routine Elevated cholesterol Expected: 11/17/2024, Expires: 02/16/2025 [facility] Comment on above: Expected: 11/17/2024, Expires: Start: 11-17-2024 End: 02-16-2025 Lipid 1996 panel - Serum or Plasma LIPID PANEL BASIC Lab Routine Elevated cholesterol Expected: 11/17/2024, Expires: 02/16/2025 [facility] Work Phone: Comment on above: Expected: 11/17/2024, Expires: Start: 11-17-2024 End: 11-17-2024 Patient encounter procedure 11/17/2024 11:00 AM EST Office Visit [facility] [place] [address] [place] [address] Katherine Tirado PA-C [address] [place] [address] yearly [facility] [place] Comment on above: yearly Start: 10-23-2024 End: 10-23-2024 Admission to same day surgery center 10/23/2024 7:30 AM EST - 10/23/2024 8:51 AM EST Surgery Admitting [address] [place] [address] Lita Schultz MD [address] [place] [address] HEMORRHOIDECTOMY EXTERNAL AND INTERNAL 2 OR MORE COLUMNS/GROUPS Admitting Comment on above: HEMORRHOIDECTOMY EXTERNAL AND INTERNAL 2 OR MORE COLUMNS/GROUPS Start: 10-23-2024 End: 10-23-2024 Hemorrhoidectomy int & xtrnl 2/> column/lolita HEMORRHOIDECTOMY EXTERNAL AND INTERNAL 2 OR MORE COLUMNS/GROUPS External hemorrhoid 10/23/2024 7:30 AM EST [facility] Start: 10-23-2024 Subsequent hospital visit by physician 10/23/2024 7:30 AM EST Hospital Encounter Admitting [address] [place] [address] Lita Schultz MD [address] [place] [address] External hemorrhoid [K64.4] Admitting Comment on above: External hemorrhoid [K64.4] Start: 10-12-2024 End: 10-12-2024 Patient encounter procedure 10/12/2024 10:00 AM EST Office Visit Financial Clearance Phone Screening [facility] pre op Financial Clearance Phone Screening Comment on above: pre op Start: 08-19-2024 End: 08-19-2024 Patient encounter procedure 08/19/2024 4:20 PM EDT Office Visit Internal Medicine [facility] [address] [place] [address] Silvina Presley APRN.DELIVERY DIRECTOR [address] [place], [place] [id number] Yearly checkup [facility] [place] Comment on above: Yearly checkup Start: 08-05-[address] [facility] Start: 08-05-2024 Screening for malignant neoplasm of breast Mammogram Screening [facility] Start: 2024 Pneumococcal Vaccine: 50+ (1 of 1 - PCV) Pneumococcal Vaccine: 50+ (1 of 1 - PCV) [facility] Start: 2024 Shingrix Vaccine (1 of 2) Shingrix Vaccine (1 of 2) [facility] Start: 07-23-2024 End: 07-23-2024 Patient encounter procedure 07/23/2024 2:00 PM EDT Office Visit Colorectal Surgery [address] [address] Lita Schultz MD [address] [place] [address] Hemorrhoids Colorectal Surgery Comment on above: Hemorrhoids Start: 07-22-2024 End: 07-22-2024 ambulatory 07/22/2024 7:30 AM EDT Results Only [facility] [address] [facility] [place] [address] [facility] Start: 07-19-2024 Covid-19 Vaccine ( season) Covid-19 Vaccine ( season) [facility] Start: 07-19-2024 Covid-19 Vaccine ( season) Covid-19 Vaccine ( season) [facility] Start: 07-19-2024 Influenza [facility] Start: 07-16-2024 End: 10-15-2024 CBC W Auto Differential panel - Blood COMPLETE BLOOD COUNT AND DIFFERENTIAL Lab Routine Other fatigue Annual physical exam Expected: 07/16/2024 (Approximate), Expires: 10/15/2024 [facility] Comment on above: Expected: 07/16/2024 (Approximate), Expi res: 10/15/2024 Start: 07-16-2024 End: 10-15-2024 Comprehensive metabolic 2000 panel - Serum or Plasma COMPREHENSIVE METABOLIC PANEL Lab Routine Other fatigue Annual physical exam Expected: 07/16/2024, Expires: 10/15/2024 [facility] Comment on above: Expected: 07/16/2024, Expires: Start: 07-16-2024 End: 10-15-2024 Lipid 1996 panel - Serum or Plasma LIPID PANEL BASIC Lab Routine Annual physical exam Expected: 07/16/2024, Expires: 10/15/2024 [facility] Work Phone: Comment on above: Expected: 07/16/2024, Expires: Start: 07-16-2024 End: 10-15-2024 Thyrotropin [Units/volume] in Serum or Plasma THYROID STIMULATING HORMONE Lab Routine Other fatigue Expected: 07/16/2024, Expires: 10/15/2024 [facility] Comment on above: Expected: 07/16/2024, Expires: Start: 07-16-2024 End: 10-15-2024 Thyroxine (T4) free [Mass/volume] in Serum or Plasma T4 FREE/FREE THYROXINE Lab Routine Other fatigue Expected: 07/16/2024, Expires: 10/15/2024 [facility] Comment on above: Expected: 07/16/2024, Expires: Start: 07-16-2024 End: 10-15-2024 Triiodothyronine (T3) Free [Mass/volume] in Serum or Plasma T3, FREE Lab Routine Other fatigue Expected: 07/16/2024, Expires: 10/15/2024 [facility] Comment on above: Expected: 07/16/2024, Expires: Start: 01-07-2024 Covid-19 Vaccine ( season) Covid-19 Vaccine () [facility] Start: 09-14-[address] [facility] Start: 09-14-2023 COLORECTAL CANCER SCREENING COLORECTAL CANCER SCREENING [facility] Start: 09-14-2023 Screening for malignant neoplasm of colon [facility] Start: 08-02-[address] [facility] Start: 07-19-2023 Covid-19 Vaccine () Covid-19 Vaccine () [facility] Start: 07-19-[address] [facility] Start: 05-30-2023 End: 06-13-2023 Influenza virus A and B RNA and SARS-CoV-2 (COVID-19) N gene panel - Respiratory specimen by DESTINY with probe detection [facility] Work Phone: Comment on above: Expected: 05/30/2023, Expires: 3 Start: 11-18-2022 DEPRESSION ASSESSMENT DEPRESSION ASSESSMENT [facility] Start: 10-24-2022 Adult depression screening assessment DEPRESSION SCREENING [facility] Start: 09-14-2022 Patient discharge [facility] Work Phone: Start: 07-19-2022 Influenza vaccination INFLUENZA (#1) [facility] Start: 01-04-2022 HPV TESTING HPV TESTING [facility] Start: 01-04-2022 PAP TESTING PAP TESTING [facility] Start: 11-18-2021 DEPRESSION ASSESSMENT DEPRESSION ASSESSMENT [facility] Start: 2019 COLOGUARD (FIT-DNA) COLOGUARD (FIT-DNA) [facility] Start: [address] [facility] Start: 2019 COLORECTAL CANCER SCREENING COLORECTAL CANCER SCREENING [facility] Start: [address] COL[address]HY [facility] Start: 2019 FECAL OCCULT BLOOD FECAL OCCULT BLOOD [facility] Start: 2019 Screening for malignant neoplasm of colon [facility] Start: [address] [facility] Start: 01-08-[address] [facility] Start: 07-01-2007 HEPATITIS B (3 of 3 - 19+ 3-dose series) HEPATITIS B (3 of 3 - 19+ 3-dose series) [facility] Start: 03-26-2007 HEPATITIS B (3 of 3 - 3-dose series) [facility] Start: 03-26-2007 Hepatitis B Vaccine (3 of 3 - 19+ 3-dose series) Hepatitis B Vaccine (3 of 3 - 19+ 3-dose series) [facility] Start: 09-17-1999 Urine microalbumin profile DTAP,TDAP,TD (1 - Tdap) [facility] Start: 1992 Depression Screening Depression Screening [facility] Start: 1992 HEPATITIS C SCREENING HEPATITIS C SCREENING [facility] Start: 1992 HIV SCREENING HIV SCREENING [facility] Bacteria identified in Urine by Culture URINE CULTURE Microbiology Routine Urinary frequency 07/06/2022 11:31 AM EDT [facility] Work Phone: End: 10-09-2025 DBT Breast - bilateral screening MARIO SCREENING [facility] Radiology Routine Encounter for screening mammogram for breast cancer 1 Occurrences starting 09/09/2024 until 10/09/2025 [facility] Work Phone: Comment on above: 1 Occurrences starting 09/09/2024 until 10/09/2025 HIGH RISK HUMAN PAPILLOMA VIRUS (HPV), PCR FOR DETECTION AND GENOTYPING HIGH RISK HUMAN PAPILLOMA VIRUS (HPV), PCR FOR DETECTION AND GENOTYPING Lab Routine Cervical cancer screening 12/02/2024 10:10 AM [facility] End: 08-29-2023 Mri brain brain stem w/o w/contrast material MRI BRAIN WO/W IVCON Radiology Routine Vertigo Migraine without status migrainosus, not intractable, unspecified migraine type Menstrual migraine without status migrainosus, not intractable Cervicalgia 1 Occurrences starting 07/30/2022 until 08/29/2023 [facility] Work Phone: Comment on above: 1 Occurrences starting 07/30/2022 until 08/29/2023 End: 08-29-2023 Mri spinal canal cervical w/o contrast matrl MRI CERVICAL SPINE WO IVCON Radiology Routine Vertigo Migraine without status migrainosus, not intractable, unspecified migraine type Menstrual migraine without status migrainosus, not intractable Spinal stenosis of cervical region 1 Occurrences starting 07/30/2022 until 08/29/2023 [facility] Work Phone: Comment on above: 1 Occurrences starting 07/30/2022 until 08/29/2023 PAP TEST PAP TEST Lab Rou zurdo Cervical cancer screening 12/02/2024 10:10 AM [facility] Work Phone: Patient Education ED Diet Vomiti ng Diarrhea ED Hypertension, To Be Confirmed [facility] Work Phone: Patient referral [facility] Work Phone: PT PLAN OF CARE CERTIFICATION PT PLAN OF CARE CERTIFICATION Procedures Routine Vertigo Ordered: 10/16/2022 [facility] Comment on above: Ordered: 10/16/2022 URODYNAMICS WHI URODYNAMICS WHI Procedures Routine TOM (stress urinary incontinence, female) Ordered: 12/08/2021 [facility] Work Phone: Comment on above: Ordered: 12/08/2021 [facility] Immunizations Immunization Date Immunization Notes Care Provider Lance stanton 09-03-2024 influenza virus vaccine, unspecified formulation Carol Lebron MD Work Phone: [facility] 11-12-2023 COVID-19 original vaccine, booster dose, monovalent (MODERNA) Carol Lebron MD Work Phone: [facility] 08-06-2023 influenza virus vaccine, unspecified formulation Lita Schultz MD Work Phone: [facility] 03-22-2023 tetanus toxoid, redu shirley diphtheria toxoid, and acellular pertussis vaccine, adsorbed Carol Lebron MD Work Phone: [facility] Work Phone: 09-04-2022 COVID-19 booster vaccine, age 12+ yr, bivalent (MODERNA) Frandy Smith Jr., MD Work Phone: [facility] 09-04-2022 influenza, injectabl e, quadrivalent, contains preservative Frandy Smith Jr., MD Work Phone: [facility] 09-04-2022 influenza virus vaccine, unspecified formulation Frandy Smith Jr., MD Work Phone: [facility] 12-13-2021 influenza, seasonal, injectable [facility] 09-22-2021 COVID-19 vaccine, fu ll dose (MODERNA) [facility] Work Phone: 02-10-2021 COVID-19, mRNA, LNP- S, PF, 100 mcg or 50 mcg dose; Translations: [Moderna COVID-19 Vaccine] MICHAEL MENDOZA DO [facility] 01-13-2021 COVID-19, mRNA, LNP- S, PF, 100 mcg or 50 mcg dose; Translations: [Moderna COVID-19 Vaccine] MICHAEL MENDOZA DO [facility] 10-10-2012 influenza virus vaccine, unspecified formulation [facility] 09-18-2010 influenza virus vaccine, unspecified formulation [facility] Work Phone: 09-02-2009 influenza virus vaccine, unspecified formulation [facility] 01-29-2007 hepatitis B vaccine, adult dosage [facility] Work Phone: 01-29-2007 hepatitis B vaccine, unspecified formulation Nelly DanielsAngie VICKERSDELIVERY DIRECTOR Work Phone: [facility] 09-02-2006 hepatitis B vaccine, adult dosage [facility] Work Phone: 09-16-1999 tetanus and diphther ia toxoids, adsorbed, preservative free, for adult use (2 Lf of tetanus toxoid and 2 Lf of diphtheria toxoid) [facility] Work Phone: Payers Date Payer Category Payer Self-pay [id number] 2023 Private Health Insurance [id number] 2023 Unknown [id number] 2019 Unknown MMO MMO [employer] [id number] 2019-Present [phone] [address] [place] [address] PPO [id number] 2019 Unknown [id number] 1974 Unknown [id number] 1974 Unknown [id number] 27 1974 Unknown [id number] 1974 Unknown [id number] 27 Unknown [id number] Unknown [id number] 62 Unknown [id number] 62 Unknown [id number] Social History Date Type Detail Facility Start: 07-27-2019 End: 09-08-2025 Tobacco smoking status NCIS Never smoked tobacco [facility] Work Phone: Comment on above: No smoke exposure Start: 02-12-2022 End: 07-14-2025 Alcohol intake Current drinker of alcohol (finding) [facility] Start: 09-16-2020 History SDOH Alcohol Frequency 4 [facility] Start: 09-16-2020 End: 03-15-2023 History SDOH Alcohol Std Drinks 1 [facility] Start: 09-16-2020 End: 03-15-2023 History SDOH Alcohol Binge 2 [facility] Start: 09-11-2013 History SDOH Alcohol Comment OCCASIONALLY, once per week [facility] Start: 09-16-2020 End: 03-15-2023 History SDOH Social Connections Meetings 3 [facility] Start: 09-16-2020 End: 03-15-2023 History SDOH Physical Activity DPW 5 [facility] Start: 09-16-[address] [facility] Start: 1975 Sex Assigned At Female C [facility] Start: 10-25-2020 End: 08-13-2022 Exposure to SARS-CoV-2 (event) Not sure [facility] Work Phone: Start: 08-19-2022 Tobacco use and exposure Smoke less tobacco non-user [facility] Work Phone: Start: 03-29-2022 End: 09-10-2022 Tobacco smoking status NHIS Unknown if ever smoked [facility] Start: 03-15-2023 End: 07-23-2024 History of Social function [facility] Start: 03-15-2023 End: 07-23-2024 Social connection and isolation panel [facility] Do you belong to any clubs or organizations such as mu-ism groups, unions, fraternal or athletic groups, or school groups? Yes [facility] Are you now , , , , never or living with a partner? [facility] How often to you hav e a drink containing alcohol? 4 or more times a week [facility] How many standard dr inks containing alcohol do you have on a typical day? [address] [facility] How often do you hav e 6 or more drinks on 1 occasion? Never [facility] Start: 10-19-2012 End: 09-19-2025 How hard is it for you to pay for the very basics like food, housing, medical care, and heating Not hard at all [facility] Do you feel stress - tense, restless, nervous, or anxious, or unable to sleep at night because your mind is troubled all the time - these days [OSQ] Only a little [facility] (I/We) worried whemegan er (my/our) food would run out before (I/we) got money to buy more. Never true [facility] At any time in the p ast 12 months, were you homeless or living in halfway [including now]? No [facility] Start: 07-14-2020 Gender identity Identifies as female gender (finding) [facility] Start: 07-14-2020 Sexual orientation Heterosexual (bert collier) [facility] How often to you hav e a drink containing alcohol? 2-[address] [facility] How often do you hav e 6 or more drinks on 1 occasion? Less than monthly [facility] Do you feel stress - tense, restless, nervous, or anxious, or unable to sleep at night because your mind is troubled all the time - these days [OSQ] Not at all [facility] Sexual Orientation Ishmael Bailey Sex Female (finding) [facility] pital Medical Equipment Procedure Code Equipment Code Equipment Origin al Text Equipment Identifier Dates Sling Gynecare T vt Exact Gynecological Stress Urinary Incontinence - [id number] Start: 02-26-2022 Goals Date Patient Goal Desired Activity /State Functional Status Date Assessment Result Facility 09-19-2025 Functional Status Independent [facility] 09-19-2025 [facility] 09-19-2025 Functional Status Ambulation in Gomez, Ambulation in Room [facility] 04-02-2024 Functional Status Up ad britt [facility] 04-02-2024 Functional Status Standard Safet y ID band on, Allergy Band on, Call device within reach, Bed in low position, Wheels locked [facility] 05-02-2022 Functional Status Ambulating in gomez, Ambulating in room, Awake, Bathroom privileges [facility] 05-02-2022 Functional Status [facility] 01-26-2015 Are you deaf, or do you have serious difficulty hearing No 01/26/2015 4:12 PM EDT Merlene Franco LPN [facility] 01-26-2015 Are you blind, or do you have serious difficulty seeing, even when wearing glasses No 01/26/2015 4:12 PM EDT Merlene Franco LPN No [facility] 01-26-2015 Do you have serious difficulty walking or climbing stairs No 01/26/2015 4:12 PM EDT Merlene Franco LPN [facility] 01-26-2015 Do you have difficul ty dressing or bathing No 01/26/2015 4:12 PM EDT Merlene Franco LPN [facility] 01-26-2015 Because of a physica l, mental, or emotional condition, do you have difficulty doing errands alone such as visiting a physician's office or shopping No 01/26/2015 4:12 PM EDT Merlene Franco LPN [facility] Mental Status Date Assessment Result Facility 09-19-2025 Mental Status Orientation Oriented x 4 [facility] 09-19-2025 Mental Status [facility] 09-08-2025 Cognitive function Level Of Cons ciousness Awake [facility] Work Phone: 04-02-2024 Mental Status Orientation Oriented x 4 [facility] 04-02-2024 Mental Status [facility] 09-14-2022 Cognitive function Voice/Name [facility] Work Phone: 05-02-2022 Mental Status Orientation Oriented x 4 [facility] 05-02-2022 Mental Status [facility] 01-26-2015 Because of a physica l, mental, or emotional condition, do you have serious difficulty concentrating, remembering, or making decisions No 01/26/2015 4:12 PM EDT Merlene Franco LPN No [facility] Clinical Notes 12-03-2013 to 09-20-2025 Patient Amanda العلي PA-C - 07/14/2025 8:29 AM EDTTelephone Encounter - Carol Lebron MD - 04/13/2025 11:39 AM EDTTelephone Encounter - Carol Lebron MD - 04/13/2025 11:39 AM EDT Note Date & Type Note Facility 09-20-2025 Note HNO ID: [id number] Author: CAROL LEBRON MD Service: ? Author Type: Physician Type: Progress Notes Filed: 09/20/2025 13:09 Note Text: Reason for Visit Diarrhea, er follow up HPI Kate Reed is a 50-year-old female, with a history of vertigo, presenting with persistent nausea, emesis, diarrhea, and abdominal cramping. Kate reports a 4-week history of persistent nausea, emesis, diarrhea, and abdominal cramping, which began after completing a course of antibiotics for a UTI. She was initially prescribed Bactrim, which was later changed to Keflex. Since completing the antibiotics, she has experienced intermittent episodes of emesis and diarrhea, accompanied by abdominal cramping. She also reports a sour taste in her mouth and heartburn. She notes that her symptoms have been more severe in the past month, leading to significant weight loss of approximately 20 lbs and missing 8 days of work. She denies any changes in diet or recent travel outside the country. Kate has been taking semaglutide since May and initially experienced nausea and emesis with the first dose, but has since tolerated it well. She denies any recent changes in her medication regimen, which includes Celexa, gabapentin for vertigo, control, magnesium, vitamin D, and a prebiotic/probiotic supplement. She has been using Zofran and Imodium to manage her symptoms, with some relief. She has sought medical attention multiple times, including visits to the ER at [facility] and [facility]. She reports that the care at [facility] was more thorough, and she underwent extensive testing, including stool samples. She is awaiting results from these tests. 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 SOCIAL HISTORY[1] Past medical history, appointments, medications, allergies reviewed. Pertinent Lab/Diagnostic Studies are reviewed and discussed today Current Outpatient Medications: gabapentin (NEURONTIN) 300 mg capsule Norethindrone Acet-Ethinyl Est (12/07, ,) 1-20 mg-mcg per tablet citalopram (CELEXA) 20 mg tablet MEDICATION, NON-DATABASE B.animalis,bifid,infantis,long (PROBIOTIC 4X ORAL) valACYclovir (VALTREX) 500 mg tablet cholecalciferol, vitamin D3, (VITAMIN D3 ORAL) magnesium carb,citrate,oxide (MAGNESIUM COMPLEX ORAL) pantoprazole DR (PROTONIX) 40 mg tablet semaglutide (OZEMPIC) 0.25 mg or 0.5 mg (2 mg/3 mL) pen phenazopyridine (PYRIDIUM) 100 mg tablet rimegepant (NURTEC ODT) 75 mg disintegrating tablet ondansetron (ZOFRAN) 4 mg tablet MEDICATION, NON-DATABASE ASHWAGANDHA EXTRACT ORAL MEDICATION, NON-DATABASE MEDICATION, NON-DATABASE NIFEdipine rectal ointment 0.2% (CPD) cyanocobalamin, vitamin B-12, (VITAMIN B-12 ORAL) meclizine (ANTIVERT) 25 mg tab Health Maintenance Pneumococcal Vaccine: 50+(1 of 1 - PCV) Shingrix Vaccine(2 of 2)@ Review Of Systems Constitutional: (+) chills, (+) myalgias, (+) unintentional weight loss Gastrointestinal: (+) diarrhea, (+) vomiting, (+) nausea, (+) abdominal cramping, (+) abdominal tenderness, (+) heartburn, (+) sour taste in mouth, (+) rectal bleeding, (+) belching, (-) abdominal pain Physical Exam BP 116/74 Pulse 110 Temp 37.5 ?C (99.5 ?F) (Temporal) Resp 16 Wt 73.8 kg (162 lb 9.6 oz) LMP 09/15/2025 (Exact Date) SpO2 99% BMI 26.24 kg/m? GENERAL: NAD, alert and oriented. SKIN: Unremarkable, no rash or skin lesions. HEAD: Normocephalic. EYES: PERRLA, EOMI, conjunctiva clear. LUNGS: Clear to auscultation bilaterally, no wheezes/rhonchi/rales. HEART: Regular rate and rhythm, no murmurs. No ectopy. EXTREMITIES: Normal, no deformities, no skin discoloration, no edema. ABDOMEN: Soft, mildly tender, decreased bowel sounds. NEURO: Awake, alert and oriented x3, cranial nerves II-XII grossly intact, normal gait, no involuntary motions. Labs: - C. difficile PCR (stool): Negative - CBC with differential: Neutrophilia; Lymphopenia; Monocytosis - CMP: Bilirubin not concerning; eGFR not concerning Assessment and Plan 1. Diarrhea, unspecified type (R19.7) 2. Nausea and vomiting, unspecified vomiting type (R11.2) Symptoms began after antibiotic treatment for UTI (Bactrim followed by [facility]); C. diff PCR negative; currently taking Zofran and Imodium; differential includes post-antibiotic GI disturbance and viral gastroenteritis. - Order stool OANDP and lactoferrin. - Continue Zofran and Imodium as needed. - Advised to discontinue semaglutide for one month. - Start Align probiotic. - Follow-up in 2 weeks. 3. Abnormal monocyte count (D72.9) Recent labs showed elevated monocytes, neutrophils, and low lymphocytes; will reassess with repeat CBC with differential at follow-up. - Repeat CBC with differential at follow-up in 2 weeks. 4. Gastroesophageal reflux disease without esophagitis (K21.9) Ongoing hear (more content not included)... [facility] 09-19-2025 Hospital Discharge instructions Patient Education 09/19/2025 18:19:39 Irritable Bowel Syndrome Irritable Bowel Syndrome Irritable bowel syndrome (IBS) is a disorder of the intestines. It is not a disease, but a group of symptoms caused by changes in the way the intestines work including how they move, secrete, absorb, and transit pain sensations. It is fairly common, but the cause is not well understood. There are other conditions that cause IBS symptoms, so make sure to speak with your provider to make sure that further evaluation isn't needed. Symptoms of IBS include: Belly pain, discomfort, and cramping Diarrhea Constipation or dry, hard stools Mucous stool Bloating Feeling of incomplete bowel movements It usually results in one of 3 patterns of symptoms: Chronic belly pain and constipation Recurring episodes of diarrhea, with belly pain or discomfort Alternating diarrhea and constipation Home care The goal of treatment is to control and relieve your symptoms, so you can lead a full and active life. There is no cure for IBS. But it can be managed. Diet Your diet did not cause your IBS, but it can affect it. Diet and food choices may cause IBS symptoms in some people, but not everyone. No one diet works for everyone. Finding the best foods for you may take trial and error. Keep a food log to help find what foods made your symptoms worse. Below are some tips that may help you. Eat more slowly. Eat smaller amounts at a time, but more often. Remember, you can always eat more, but cannot eat less once you ve eaten too much. In general, fiber is very helpful for both constipation and diarrhea. However, insoluble fiber can worsen bloating, cramping, and gas. Insoluble fiber can be found in wheat bran, certain vegetables, and whole-grains. Soluble fiber is in such foods as oat bran, barley, nuts, seeds, carrillo, lentils, peas, and some fruits and vegetables. Increase fiber slowly and choose a product that includes soluble fiber. It helps to keep a food diary and write down the symptoms you have with certain foods. Try lactose-free dairy products. many people are intolerant to lactose. Try cutting out foods that are high in fat and fatty meats. You can control bloating or passing excess gas. Be careful with gassy vegetables and fruits like beans, cabbage, broccoli, and cauliflower. Other foods called FODMAPs are a type of carbohydrate that can cause these symptoms and diarrhea. They are poorly digestible carbohydrates. Some FODMAP examples include honey, apples, pears, nectarines, kamara beans, and cabbage. Talk with your provider about how to choose low FODMAP foods if you are sensitive to them. Be careful with carbonated beverages and fruit juices. They can make your bloating and diarrhea worse. Caffeine, alcohol, and stimulants can make symptoms worse. These include coffee, tea, sodas, energy drinks, and chocolate. IBS diet guidelines can be confusing. Ask your provider for a referral to a registered dietitian. This professional can help you make sense of IBS diet suggestions. Lifestyle Look for factors that seem to worsen your symptoms. These include stress and emotions. Although stress does not cause IBS, it may trigger flare-ups. Counseling can help you learn to handle stress. So can self-help measures like exercise, yoga, and meditation. Depression can occur along with IBS. Your healthcare provider may prescribe antidepressant medicine. This may help with diarrhea, constipation, and cramping, as well as with symptoms of depression. Smoking doesn't cause IBS, but can make the symptoms worse. Medicines Your healthcare provider may prescribe medicines. Take them as directed. For acute flare-ups of your illness, your provider may give you prescription medicines. Check with your healthcare provider before taking any medicines for diarrhea. Don't take anti-inflammatory medicines like ibuprofen or naproxen. Long-term medicines can be helpful for chronic symptoms If you have lost enough weight to make you need nutritional supplements, talk to your provider. This may point to another more serious condition. Follow-up care Follow up with your healthcare provider, or as advised. When to seek medical advice Call your healthcare provider right away if any of these occur: Belly pain gets worse or does not improve after a bowel movement Constant belly pain moves to the right-lower belly You can't keep liquids down because of vomiting You have severe, persistent diarrhea You have blood (red or black color) or mucus in your stool You have lost significant weight You feel very weak or dizzy, faint, or have extreme thirst You have a fever of 100.4 F (38.0 C) or higher, or as directed by your healthcare provider [id number] [employer]. [address] [place] [address]. All rights reserved. This information is not intended as a substitute for professional medical care. Always follow your healthcare professional's instructions. 09/19/2025 18:19:38 Diet for Vomiting or Diarrhea (Adult) Diet for Vomiting or Diarrhea (Adult) Your symptoms may return or get worse after eating certain foods listed below. If this happens, stop eating these foods until your symptoms ease and you feel better. Once the vomiting stops, follow the steps below. During the first 12 to 24 hours During the first 12 to 24 hours, follow this diet: Drinks. Plain water, sport drinks like electrolyte solutions, soft drinks without caffeine, mineral water (plain or flavored), clear fruit juices, and decaffeinated tea and coffee. Soups. Clear broth. Desserts. Plain gelatin, popsicles, and fruit juice bars. As you feel better, you may add 6 to 8 ounces of yogurt per day. If you have diarrhea, don't have foods or drinks that contain sugar, high-fructose corn syrup, or sugar alcohols. During the next 24 hours During the next 24 hours you may add the following to the above: Hot cereal, plain toast, bread, rolls, and crackers Plain noodles, rice, mashed potatoes, and chicken noodle or rice soup Unsweetened canned fruit (but not pineapple) and bananas Don't eat more than 15 grams of fat a day. Do this by staying away from margarine, butter, oils, mayonnaise, sauces, gravies, fried foods, peanut butter, meat, poultry, and fish. Don't eat much fiber. Stay away from raw or cooked vegetables, fresh fruits (except bananas), and bran cereals. Limit how much caffeine and chocolate you have. Do not use any spices or seasonings except salt. During the next 24 hours Slowly go back to your normal diet, as you feel better and your symptoms ease. [id number] [employer]. [address] [place] [address], [place] [address]. All rights reserved. This information is not intended as a substitute for professional medical care. Always follow your healthcare professional's instructions. 09/19/2025 18:19:36 Diarrhea, Unknown Cause Diarrhea with Uncertain Cause (Adult) Diarrhea is when stools are loose and watery. This can be caused by: Viral infections Bacterial infections Food poisoning Parasites Irritable bowel syndrome (IBS) Inflammatory bowel diseases such as ulcerative colitis, Crohn's disease, and celiac disease Food intolerance, such as to lactose, the sugar found in milk and milk products Reaction to medicines like antibiotics, laxatives, cancer drugs, and antacids Along with diarrhea, you may also have: Abdominal pain and cramping Nausea and vomiting Loss of bowel control Fever and chills Bloody stools In some cases, antibiotics may help to treat diarrhea. You may have a stool sample test. This is done to see what is causing your diarrhea, and if antibiotics will help treat it. The results of a stool sample test may take up to 2 days. The healthcare provider may not give you antibiotics until he or she has the stool test results. Diarrhea can cause dehydration. This is the loss of too much water and other fluids from the body. When this occurs, body fluid must be replaced. This can be done with oral rehydration solutions. Oral rehydration solutions are available at drugstores and grocery stores without a prescription. Sports drinks are not the best choice if you are very dehydrated. They have too much sugar and not enough electrolytes. Home care Follow all instructions given by your healthcare provider. Rest at home for the next 24 hours, or until you feel better. Avoid caffeine, tobacco, and alcohol. These can make diarrhea, cramping, and pain worse. If taking medicines: [id number]-[id number] nausea and diarrhea medicines are generally OK unless you experience fever or blood stool. Check with your doctor first in those circumstances. You may use acetaminophen or NSAID medicines like ibuprofen or naproxen to reduce pain and fever. Don t use these if you have chronic liver or kidney disease, or ever had a stomach ulcer or gastrointestinal bleeding. Don't use NSAID medicines if you are already taking one for another condition (like arthritis) or are on daily aspirin therapy (such as for heart disease or after a stroke). Talk with your healthcare provider first. If antibiotics were prescribed, be sure you take them until they are finished. Don t stop taking them even when you feel better. Antibiotics must be taken as a full course. To prevent the spread of illness: Remember that washing with soap and water and using alcohol-based director food and beverage is the best way to prevent the spread of infection. Dry your hands with a single use towel (like a paper towel). Clean the toilet after each use. Wash your hands before eating. Wash your hands before and after preparing food. Keep in mind that people with diarrhea or vomiting should not prepare food for others. Wash your hands after using cutting boards, countertops, and knives that have been in contact with raw foods. Wash and then peel fruits and vegetables. Keep uncooked meats away from cooked and zmnsf-ne-ljs foods. Use a food thermometer when cooking. Cook poultry to at least 165 F (74 C). Cook ground meat (beef, veal, pork, galdamez) to at least 160 F (71 C). Cook fresh beef, veal, galdamez, and pork to at least 145 F (63 C). Don t eat raw or undercooked eggs (poached or delma side up), poultry, meat, or unpasteurized milk and juices. Food and drinks The main goal while treating vomiting or diarrhea is to prevent dehydration. This is done by taking small amounts of liquids often. Keep in mind that liquids are more important than food right now. Drink only small amounts of liquids at a time. Don t force yourself to eat, especially if you are having cramping, vomiting, or diarrhea. Don t eat large amounts at a time, even if you are hungry. If you eat, avoid fatty, greasy, spicy, or fried foods. Don t eat dairy foods or drink milk if you have diarrhea. These can make diarrhea worse. During the first 24 hours you can try: Oral rehydration solutions. Sports drinks may be used if you are not too dehydrated and are otherwise healthy. Soft drinks without caffeine Chelsy tahira Water (plain or flavored) Decaf tea or coffee Clear broth, consomm , or bouillon Gelatin, popsicles, or frozen fruit juice bars The second 24 hours, if you are feeling better, you can add: Hot cereal, plain toast, bread, rolls, or crackers Plain noodles, rice, mashed potatoes, chicken noodle soup, or rice soup Unsweetened canned fruit (no pineapple) Bananas As you recover: Limit fat intake to less than 15 grams per day. Don t eat margarine, butter, oils, mayonnaise, sauces, gravies, fried foods, peanut butter, meat, poultry, or fish. Limit fiber. Don t eat raw or cooked vegetables, fresh fruits except bananas, or bran cereals. Limit caffeine and chocolate. Limit dairy. Don t use spices or seasonings except salt. Go back to your normal diet over time, as you feel better and your symptoms improve. If the symptoms come back, go back to a simple diet or clear liquids. Follow-up care Follow up with your healthcare provider, or as advised. If a stool sample was taken or cultures were done, call the healthcare provider for the results as instructed. Call 911 Call 911 if you have any of these symptoms: Trouble breathing Confusion Extreme drowsiness or trouble walking Loss of consciousness Rapid heart rate Chest pain Stiff neck Seizure When to seek medical advice Call your healthcare provider right away if any of these occur: Abdominal pain that gets worse Constant lower right abdominal pain Continued vomiting and inability to keep liquids down Diarrhea more than 5 times a day Blood in vomit or stool Dark urine or no urine for 8 hours, dry mouth and tongue, tiredness, weakness, or dizziness Drowsiness New rash You don t get better in 2 to 3 days Fever of 100.4 F (38 C) or higher, or as directed by your healthcare provider [id number] [employer]. [address] [place] [address]. All rights reserved. This information is not intended as a substitute for professional medical care. Always follow your healthcare professional's instructions. Follow Up Care 09/19/2025 16:09:18 With:CAROL LEBRON MD Address: [address] [place] [phone]- When:2-4 days [facility] 09-19-2025 Note Discharge Instructions Thank you for allowing [facility] to assist you with your healthcare needs. The following is important discharge information regarding your hospital visit. Diagnosis from Today's Visit Diarrhea What to Do Next Instructions from Your Care Team No qualifying data available. Post Acute Orders No qualifying data available. You Need to Schedule the Following Appointments Follow Up with CAROL LEBRON MD When:Within 2-4 days Where:[address] [place] [id number]- Allergies Honey erythromycin Medications Please ask your primary doctor or pharmacist before taking any other medication not listed, including over the counter drugs, herbal medications, vitamins and or supplements as they may interact with your home medications. What How Much When Instructions Last Dose New dicyclomine (dicyclomine 10 mg oral capsule) 1 cap by mouth Four (4) times a day as needed for abdominal discomfort Duration: 7 Days Printed Prescription New ondansetron (Zofran 4 mg oral tablet) 1 tab(s) by mouth Every 6 hours as needed for Nausea/Vomiting Duration: 5 Days Printed Prescription Unchanged citalopram (citalopram 40 mg oral tablet) 1 tab(s) by mouth Once a day Duration: 90 Days Unchanged ethinyl estradiol-norethindrone (Junel oral tablet) 1 tab(s) by mouth Once a day Unchanged Misc Medication (3 in 1 [...] medication providers or retail pharmacies. [employer] Irritable Bowel Syndrome Irritable bowel syndrome (IBS) is a disorder of the intestines. It is not a disease, but a group of symptoms caused by changes in the way the intestines work including how they move, secrete, absorb, and transit pain sensations. It is fairly common, but the cause is not well understood. There are other conditions that cause IBS symptoms, so make sure to speak with your provider to make sure that further evaluation isn't needed. Symptoms of IBS include: Belly pain, discomfort, and cramping Diarrhea Constipation or dry, hard stools Mucous stool Bloating Feeling of incomplete bowel movements It usually results in one of 3 patterns of symptoms: Chronic belly pain and constipation Recurring episodes of diarrhea, with belly pain or discomfort Alternating diarrhea and constipation Home care The goal of treatment is to control and relieve your symptoms, so you can lead a full and active life. There is no cure for IBS. But it can be managed. Diet Your diet did not cause your IBS, but it can affect it. Diet and food choices may cause IBS symptoms in some people, but not everyone. No one diet works for everyone. Finding the best foods for you may take trial and error. Keep a food log to help find what foods made your symptoms worse. Below are some tips that may help you. Eat more slowly. Eat smaller amounts at a time, but more often. Remember, you can always eat more, but cannot eat less once you ve eaten too much. In general, fiber is very helpful for both constipation and diarrhea. However, insoluble fiber can worsen bloating, cramping, and gas. Insoluble fiber can be found in wheat bran, certain vegetables, and whole-grains. Soluble fiber is in such foods as oat bran, barley, nuts, seeds, carrillo, lentils, peas, and some fruits and vegetables. Increase fiber slowly and choose a product that includes soluble fiber. It helps to keep a food diary and write down the symptoms you have with certain foods. Try lactose-free dairy products. many people are intolerant to lactose. Try cutting out foods that are high in fat and fatty meats. You can control bloating or passing excess gas. Be careful with gassy vegetables and fruits like beans, cabbage, broccoli, and cauliflower. Other foods called FODMAPs are a type of carbohydrate that can cause these symptoms and diarrhea. They are poorly digestible carbohydrates. Some FODMAP examples include honey, apples, pears, nectarines, kamara beans, and cabbage. Talk with your provider about how to choose low FODMAP foods if you are sensitive to them. Be careful with carbonated beverages and fruit juices. They can make your bloating and diarrhea worse. Caffeine, alcohol, and stimulants can make symptoms worse. These include coffee, tea, sodas, energy drinks, and chocolate. IBS diet guidelines can be confusing. Ask your provider for a referral to a registered dietitian. This professional can help you make sense of IBS diet suggestions. Lifestyle Look for factors that seem to worsen your symptoms. These include stress and emotions. Although stress does not cause IBS, it may trigger flare-ups. Counseling can help you learn to handle stress. So can self-help measures like exercise, yoga, and meditation. Depression can occur along with IBS. Your healthcare provider may prescribe antidepressant medicine. This may help with diarrhea, constipation, and cramping, as well as with symptoms of depression. Smoking doesn't cause IBS, but can make the symptoms worse. Medicines Your healthcare provider may prescribe medicines. Take them as directed. For acute flare-ups of your illness, your provider may give you prescription medicines. Check with your healthcare provider before taking any medicines for diarrhea. Don't take anti-inflammatory medicines like ibuprofen or naproxen. Long-term medicines can be helpful for chronic symptoms If you have lost enough weight to make you need nutritional supplements, talk to your provider. This may point to another more serious condition. Follow-up care Follow up with your healthcare provider, or as advised. When to seek medical advice Call your healthcare provider right away if any of these occur: Belly pain gets worse or does not improve after a bowel movement Constant belly pain moves to the right-lower belly You can't keep liquids down because of vomiting You have severe, persistent diarrhea You have blood (red or black color) or mucus in your stool You have lost significant weight You feel very weak or dizzy, faint, or have extreme thirst You have a fever of 100.4 F (38.0 C) or higher, or as directed by your healthcare provider [id number] [employer] [address] [place] [address], [place] [address]. All rights reserved. This information is not intended as a substitute for professional medical care. Always follow your healthcare professional's instructions. Diet for Vomiting or Diarrhea (Adult) Your symptoms may return or get worse after eating certain foods listed below. If this happens, stop eating these foods until your symptoms ease and you feel better. Once the vomiting stops, follow the steps below. During the first 12 to 24 hours During the first 12 to 24 hours, follow this diet: Drinks. Plain water, sport drinks like electrolyte solutions, soft drinks without caffeine, mineral water (plain or flavored), clear fruit juices, and decaffeinated tea and coffee. Soups. Clear broth. Desserts. Plain gelatin, popsicles, and fruit juice bars. As you feel better, you may add 6 to 8 ounces of yogurt per day. If you have diarrhea, don't have foods or drinks that contain sugar, high-fructose corn syrup, or sugar alcohols. During the next 24 hours During the next 24 hours you may add the following to the above: Hot cereal, plain toast, bread, rolls, and crackers Plain noodles, rice, mashed potatoes, and chicken noodle or rice soup Unsweetened canned fruit (but not pineapple) and bananas Don't eat more than 15 grams of fat a day. Do this by staying away from margarine, butter, oils, mayonnaise, sauces, gravies, fried foods, peanut butter, meat, poultry, and fish. Don't eat much fiber. Stay away from raw or cooked vegetables, fresh fruits (except bananas), and bran cereals. Limit how much caffeine and chocolate you have. Do not use any spices or seasonings except salt. During the next 24 hours Slowly go back to your normal diet, as you feel better and your symptoms ease. [id number] [employer] [address] [place] [address]. All rights reserved. This information is not intended as a substitute for professional medical care. Always follow your healthcare professional's instructions. Diarrhea with Uncertain Cause (Adult) Diarrhea is when stools are loose and watery. This can be caused by: Viral infections Bacterial infections Food poisoning Parasites Irritable bowel syndrome (IBS) Inflammatory bowel diseases such as ulcerative colitis, Crohn's disease, and celiac disease Food intolerance, such as to lactose, the sugar found in milk and milk products Reaction to medicines like antibiotics, laxatives, cancer drugs, and antacids Along with diarrhea, you may also have: Abdominal pain and cramping Nausea and vomiting Loss of bowel control Fever and chills Bloody stools In some cases, antibiotics may help to treat diarrhea. You may have a stool sample test. This is done to see what is causing your diarrhea, and if antibiotics will help treat it. The results of a stool sample test may take up to 2 days. The healthcare provider may not give you antibiotics until he or she has the stool test results. Diarrhea can cause dehydration. This is the loss of too much water and other fluids from the body. When this occurs, body fluid must be replaced. This can be done with oral rehydration solutions. Oral rehydration solutions are available at drugstores and grocery stores without a prescription. Sports drinks are not the best choice if you are very dehydrated. They have too much sugar and not enough electrolytes. Home care Follow all instructions given by your healthcare provider. Rest at home for the next 24 hours, or until you feel better. Avoid caffeine, tobacco, and alcohol. These can make diarrhea, cramping, and pain worse. If taking medicines: Txox-ybh-egpmrep nausea and diarrhea medicines are generally OK unless you experience fever or blood stool. Check with your doctor first in those circumstances. You may use acetaminophen or NSAID medicines like ibuprofen or naproxen to reduce pain and fever. Don t use these if you have chronic liver or kidney disease, or ever had a stomach ulcer or gastrointestinal bleeding. Don't use NSAID medicines if you are already taking one for another condition (like arthritis) or are on daily aspirin therapy (such as for heart disease or after a stroke). Talk with your healthcare provider first. If antibiotics were prescribed, be sure you take them until they are finished. Don t stop taking them even when you feel better. Antibiotics must be taken as a full course. To prevent the spread of illness: Remember that washing with soap and water and using alcohol-based director food and beverage is the best way to prevent the spread of infection. Dry your hands with a single use towel (like a paper towel). Clean the toilet after each use. Wash your hands before eating. Wash your hands before and after preparing food. Keep in mind that people with diarrhea or vomiting should not prepare food for others. Wash your hands after using cutting boards, countertops, and knives that have been in contact with raw foods. Wash and then peel fruits and vegetables. Keep uncooked meats away from cooked and mnlgu-ms-tol foods. Use a food thermometer when cooking. Cook poultry to at least 165 F (74 C). Cook ground meat (beef, veal, pork, galdamez) to at least 160 F (71 C). Cook fresh beef, veal, galdamez, and pork to at least 145 F (63 C). Don t eat raw or undercooked eggs (poached or delma side up), poultry, meat, or unpasteurized milk and juices. Food and drinks The main goal while treating vomiting or diarrhea is to prevent dehydration. This is done by taking small amounts of liquids often. Keep in mind that liquids are more important than food right now. Drink only small amounts of liquids at a time. Don t force yourself to eat, especially if you are having cramping, vomiting, or diarrhea. Don t eat large amounts at a time, even if you are hungry. If you eat, avoid fatty, greasy, spicy, or fried foods. Don t eat dairy foods or drink milk if you have diarrhea. These can make diarrhea worse. During the first 24 hours you can try: Oral rehydration solutions. Sports drinks may be used if you are not too dehydrated and are otherwise healthy. Soft drinks without caffeine Chelsy tahira Water (plain or flavored) Decaf tea or coffee Clear broth, consomm , or bouillon Gelatin, popsicles, or frozen fruit juice bars The second 24 hours, if you are feeling better, you can add: Hot cereal, plain toast, bread, rolls, or crackers Plain noodles, rice, mashed potatoes, chicken noodle soup, or rice soup Unsweetened canned fruit (no pineapple) Bananas As you recover: Limit fat intake to less than 15 grams per day. Don t eat margarine, butter, oils, mayonnaise, sauces, gravies, fried foods, peanut butter, meat, poultry, or fish. Limit fiber. Don t eat raw or cooked vegetables, fresh fruits except bananas, or bran cereals. Limit caffeine and chocolate. Limit dairy. Don t use spices or seasonings except salt. Go back to your normal diet over time, as you feel better and your symptoms improve. If the symptoms come back, go back to a simple diet or clear liquids. Follow-up care Follow up with your healthcare provider, or as advised. If a stool sample was taken or cultures were done, call the healthcare provider for the results as instructed. Call 911 Call 911 if you have any of these symptoms: Trouble breathing Confusion Extreme drowsiness or trouble walking Loss of consciousness Rapid heart rate Chest pain Stiff neck Seizure When to seek medical advice Call your healthcare provider right away if any of these occur: Abdominal pain that gets worse Constant lower right abdominal pain Continued vomiting and inability to keep liquids down Diarrhea more than 5 times a day Blood in vomit or stool Dark urine or no urine for 8 hours, dry mouth and tongue, tiredness, weakness, or dizziness Drowsiness New rash You don t get better in 2 to 3 days Fever of 100.4 F (38 C) or higher, or as directed by your healthcare provider [phone] The [employer]. [address] [place] [address]. All rights reserved. This information is not intended as a substitute for professional medical care. Always follow your healthcare professional's instructions. Additional Information VACCINATE! IT SAVES LIVES! Members of the community who have not yet received the COVID-19 vaccine and would like to receive it can visit one of [facility] vaccine clinics. There are many vaccine clinic locations within the [facility]. For locations and available times, please visit [email or web address] It is important to note that some COVID mobile vaccine clinics are held outdoors and may be canceled in rainy or stormy conditions. To learn more about pediatric vaccinations (ages 5-11), we invite you to visit the [facility] webpage. [email or web address]/p [email or web address]-Wfekvhfexdo-Freq tgbeel-[email or web address]-[email or web address].html To learn more about the COVID-19 vaccine, we invite you to visit the CDC website for a list of frequently asked questions. https://www.cdc.gov/coronavirus/ 2019-ncov/vaccines/faq.html [facility] Patient Portal Access Instructions: Stay connected with your healthcare team and access your personal medical information anytime with the [facility] Patient Portal. If you would like a full copy of your medical records please contact the [facility] Medical Records Department Saturday through [place] between 8a.m. and 4:30p.m. Please follow the directions below to access the portal: 1.Access the email account you provided upon registration to the [facility].2.Look for an invitation email from [facility].3.Open the email and access the invitation link: Accept Invitation to [employer]4.Fill in the required gutierrez to create your account. To access your account, visit [employer] ([employer])maggie or scan the [employer] code above. Click the blue button labeled Access Patient Portal and then log in with the username and password that you created in the steps above. You can then view a summary of results, a summary of your visits, and the ability to download your summaries to your computer or send the information securely to a physician. Remember that your healthcare information is confidential, so carefully consider who you will allow to register on the [facility] [facility] Patient Portal for access to your information. You can also access the [email or web address] Patient Portal on the [employer] mamadou. Simply click on Health Records under Health Data and then click on the [employer] logo. HOW TO SAFELY DISPOSE OF PRESCRIPTION [...] Call your local pharmacy or go to [email or web address] to find one close to you.3.Make use of household items: Use cat litter or old coffee grounds to dispose medications if other options are not available. Mix your drugs with these household products, seal them in an airtight container and throw it into the garbage. Call [facility]: [phone] to be sure your drugs can be [...] a CHART COPY Signatures Patient Education Materials Irritable Bowel Syndrome Diet for Vomiting or Diarrhea (Adult) Diarrhea, Unknown Cause Medication Leaflets My discharge plan and instructions have been reviewed and explained to me and IBRIANNA HEATHER C understand my current condition and have read and understand these discharge instructions. I have received a written copy of the plan/instructions. If I have questions, I am aware that I should contact my doctor. Patient/Enrichment Director Signature: Date/Time: Relationship to Patient: Witness Name/Signature: Date/Time: [facility] 09-19-2025 Evaluation + Plan note Diagnostic Tests PendingStool Gastrointestinal Panel 09/19/25 [facility] 09-08-2025 Discharge summary [facility] 09-01-2025 Note HNO ID: [id number] Author: KATHERINE TIRADO PA-C Service: ? 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 Patient/authorized bottling equipment sales representative agreed to proceed 09/01/2025 Kate Reed is a 50-year-old female presenting for evaluation of persistent urinary symptoms. Urinary Symptoms: Leia was seen on 08/09/25, urine dip positive, started on Bactrim. Pateint completed antibiotic. Upon reviewing culture results from 08/09-resistence to bactrim. - Persistent urinary frequency. - Previous severe pressure sensation has improved; now only mild residual sensation. - New onset of lower back pain, bloating, and excessive flatulence. - Denies emesis or fever, chills, flank pain. - No history of renal issues. Current Outpatient Medications on File Prior to Visit Medication Sig semaglutide (OZEMPIC) 0.25 mg or 0.5 mg (2 mg/3 mL) pen Inject 0.25 mg subcutaneously one time a week. phenazopyridine (PYRIDIUM) 100 mg tablet Take 1 tablet by mouth three times a day as needed. gabapentin (NEURONTIN) 300 mg capsule Take 1 capsule by mouth two times a day for 180 days. rimegepant (NURTEC ODT) 75 mg disintegrating tablet Take 1 tablet by mouth once daily as needed for migraine headache (see administration instructions). No more than 1 dose in 24 hours. Do not swallow whole. Allow tablet to dissolve in mouth. Norethindrone Acet-Ethinyl Est (JUNEL ,) 1-20 mg-mcg per tablet Take 1 tablet by mouth once daily. ondansetron (ZOFRAN) 4 mg tablet Take 1 tablet by mouth every 8 hours as needed for nausea/vomiting. citalopram (CELEXA) 20 mg tablet Take 1 tablet by mouth once daily. MEDICATION, NON-DATABASE Take by mouth once daily. D3 + k2 vitamin MEDICATION, NON-DATABASE Take 1,200 mg by mouth once daily. Red yeast rice extract ASHWAGANDHA EXTRACT ORAL Take 600 mg by mouth once daily. (Patient not taking: Reported on 08/09/2025) MEDICATION, NON-DATABASE Take by mouth once daily. Curcumin and rexveratrol 1 tsp daily B.animalis,bifid,infantis,long (PROBIOTIC 4X ORAL) Take by mouth once daily. MEDICATION, NON-DATABASE Take by mouth once daily. Pre biotic NIFEdipine rectal ointment 0.2% (CPD) Apply a pea-sized amount by RECTAL route three times a day. (Patient not taking: Reported on 07/14/2025) valACYclovir (VALTREX) 500 mg tablet At earliest [...] tablet by mouth once daily as needed. No current facility-administered medications on file prior to visit. PAST MEDICAL HISTORY Diagnosis Date Anxiety 11/24/2020 Biliary dyskinesia 10/30/2013 Chronic cholecystitis without calculus 12/03/2013 Endometriosis, site unspecified Endometriosis Irregular menstrual cycle Irregular periods IRREGULAR MENSTRUATION Mild dysplasia of cervix (FREDO I) Mixed incontinence Allergies: Erythromycin GI Upset Honey Swelling Constitutional: (+) fatigue, (-) fever Gastrointestinal: (+) abdominal bloating, (-) vomiting Genitourinary: (+) urinary frequency Musculoskeletal: (+) lower back pain, (+) myalgia BP 116/80 Pulse 88 Temp 36 ?C (96.8 ?F) Resp 16 Wt 76.7 kg (169 lb) LMP (LMP Unknown) BMI 27.28 kg/m? GENERAL: NAD, alert and oriented. LUNGS: Clear to auscultation bilaterally, no wheezes/rhonchi/rales. HEART: Regular rate and rhythm, no murmurs. No ectopy. ABDOMEN: Mild tenderness in the lower abdomen, no tenderness in the upper abdomen. No hepatosplenomegaly. BACK no CVA TTP Labs: - (08/31/2025) Urinalysis: - Nitrite: decreased - Bacteriuria: decreased - Hematuria: present - Urine culture: - Result: positive for infection - Antibiotic susceptibility: - Trimethoprim-sulfamethoxazole: resistant - Cephalosporins: susceptible 1. Urinary frequency (R35.0) 2. Microscopic hematuria (R31.29) 3. Acute cystitis with hematuria (N30.01) - Persistent urinary frequency and microscopic hematuria following initial treatment with Bactrim; urine culture demonstrated resistance to Bactrim. - No current fever, vomiting, or severe flank pain; low suspicion for pyelonephritis. - Start Keflex 1 capsule BID for 7 days based on culture sensitivities. - Advised patient to increase fluid intake. - Educated on signs of kidney infection (fever >100 degreeF, vomiting, severe back or abdominal pain) and instructed to seek emergency care if these develop. - Urine culture unable to be obtained today due to not enough urine collection. - Repeat urinalysis to be (more content not included)... [facility] 08-09-2025 Note HNO ID: [id number] Author: CAROL LEBRON MD Service: ? Author Type: Physician Type: Progress Notes Filed: 08/09/2025 09:58 Note Text: Reason for Visit - Follow up HPI Kate Reed is a 50-year-old female presenting with symptoms of a UTI. Kate reports onset of symptoms on Saturday, beginning with a general feeling of malaise and achiness while attending a wedding. By Saturday, she began experiencing urinary urgency with minimal output, describing it as a few dribbles each time she attempted to void. She also reports a sensation of pressure and an urge to push, feeling as though she could not completely empty her bladder. These symptoms persisted throughout the night and into the following morning, with frequent trips to the bathroom approximately every 20 minutes. She notes a slight decrease in pressure today, which she attributes to reduced fluid intake. She denies any visible hematuria, fever, or chills. Kate is currently perimenopausal and has a history of UTIs, though she notes it has been a long time since her last episode. She recently received her first dose of the shingles vaccine last week and inquires about scheduling the second dose. She also mentions being on a GLP-1 receptor agonist, compounded semaglutide, for weight management, which has resulted in weight loss from 184 lbs to 171 lbs. She reports mild nausea as a side effect. SOCIAL HISTORY[1] Past medical history, appointments, medications, allergies reviewed. Pertinent Lab/Diagnostic Studies are reviewed and discussed today Current Outpatient Medications: gabapentin (NEURONTIN) 300 mg capsule rimegepant (NURTEC ODT) 75 mg disintegrating tablet Norethindrone Acet-Ethinyl Est (,) 1-20 mg-mcg per tablet ondansetron (ZOFRAN) 4 mg tablet MEDICATION, NON-DATABASE MEDICATION, NON-DATABASE MEDICATION, NON-DATABASE B.animalis,bifid,infantis,long (PROBIOTIC 4X ORAL) MEDICATION, NON-DATABASE valACYclovir (VALTREX) 500 mg tablet cholecalciferol, vitamin D3, (VITAMIN D3 ORAL) magnesium carb,citrate,oxide (MAGNESIUM COMPLEX ORAL) meclizine (ANTIVERT) 25 mg tab sulfamethoxazole-trimethoprim (BACTRIM DS) 800-160 mg per tablet semaglutide (OZEMPIC) 0.25 mg or 0.5 mg (2 mg/3 mL) pen phenazopyridine (PYRIDIUM) 100 mg tablet citalopram (CELEXA) 20 mg tablet docosahexaenoic acid/epa (FISH OIL ORAL) ASHWAGANDHA EXTRACT ORAL buPROPion (WELLBUTRIN) 75 mg tablet NIFEdipine rectal ointment 0.2% (CPD) medroxyPROGESTERone (PROVERA) 10 mg tablet estradiol (VIVELLE-DOT) 0.075 mg/24 hr patch cyanocobalamin, vitamin B-12, (VITAMIN B-12 ORAL) Health Maintenance Pneumococcal Vaccine: 50+(1 of 1 - PCV) Mammogram Screening@ Review Of Systems Constitutional: (+) myalgias, (+) weight loss, (-) fever, (-) chills Gastrointestinal: (+) nausea Genitourinary: (+) urinary urgency, (+) urinary frequency, (+) suprapubic pressure, (-) hematuria Musculoskeletal: (-) back pain Physical Exam BP 126/70 (BP Site: Left Arm, BP Position: Sitting, BP Cuff Size: Large Adult) Pulse 84 Temp 36.8 ?C (98.3 ?F) (Temporal) Resp 16 Wt 77.6 kg (171 lb) LMP 02/04/2025 BMI 27.60 kg/m? GENERAL: NAD, alert and oriented. SKIN: Unremarkable, no rash or skin lesions. HEAD: Normocephalic. EYES: PERRLA, EOMI, conjunctiva clear. EARS: External ears normal, canals clear, TM's normal. LUNGS: Clear to auscultation bilaterally, no wheezes/rhonchi/rales. HEART: Regular rate and rhythm, no murmurs. No ectopy. EXTREMITIES: Normal, no deformities, no skin discoloration, no edema. ABDOMEN: Soft, non-tender except for mild tenderness in the suprapubic area. No hepatosplenomegaly noted. Bowel sounds normal. NEURO: Awake, alert and oriented x3, cranial nerves II-XII grossly intact, normal gait, no involuntary motions. Labs: (Today) Urinalysis: Presence of RBC, consistent with urinary tract infection Imaging: (Today) Mammogram: Results not discussed Tests: (09/14/2022) Colonoscopy: Results not discussed Assessment and Plan 1. Dysuria (R30.0) 2. Acute cystitis with hematuria (N30.01) Acute cystitis confirmed by urinalysis showing hematuria; no fever, chills, or back pain reported. - Start Bactrim for 7 days. - Urine culture ordered to confirm pathogen and guide therapy. - Discussed that hematuria is a common finding in UTIs. - Educated patient on increased UTI risk associated with perimenopausal changes. 3. Encounter for immunization (Z23) Patient received first dose of shingles vaccine last week; second dose due on 10/01. - Order placed for second dose of shingles vaccine. 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 Voice recognition software was used to compose this office note. Please excuse any unintended typographical errors. Recording using ambient Async Technologies software for draft documentation of the visit was discussed with the patient/authorized (more content not included)... [facility] 07-14-2025 Instructions Amanda Ewing PA-C - 07/14/2025 [...] Feverfew: Feverfew is a common garden herb teller to [place] and popular in [place] [...] pepperoni, Pickled holly Pods of broad carrillo (Bulgarian beans, Portuguese pea pods, Lao (ju) beans, kamara and navy beans Ripe [...] much light. These can be obtained at [employer] or [employer] Foods: see list above. 2. Limit use of acute treatments (evlk-wfb-yykwxrz medications, triptans, etc.) to no more than [...] and quiet environment. Relax and reduce stress. Scunbpu5Ybnlm is a free mamadou that can instruct you on some simple relaxtion and breathing techniques. Http://[employer] is a free website that provides teaching [...] and will be handling your phone calls, [employer] Messages and inquiries, if any. Unless explicitly told otherwise at the time of your office visit, your study results and ensuing treatment plans will be released via [employer] and discussed during your follow-up appointment. MindMixerhart: Please ask the schedulers to give you an activation code. The main way of communication is by MindMixerhart rather than phone lines, so if you have not signed up, please do so. [employer] is also the way that you can review your labs and testing. We are not able to contact everyone to tell them results are normal. If you do not hear back from us regarding testing you have had, it should be considered normal or within normal range. If you have any questions about the results, you are free to message us. [employer] is meant for simple questions regarding medications, possible side effects, or other simple straight forward questions in limited sentences, rather than multiple paragraphs of discussion. [employer] is not meant for, or efficient for [...] do not comment on most testing on RE2t in a message or commentary unless there [...] with this process. documented in this encounter [facility] 07-14-2025 Note HNO ID: [id number] Author: AMANDA EWING PA-C Service: ? Author Type: Physician Grease Refiner Operator Type: Progress Notes Filed: 07/14/2025 09:28 Note Text: [facility] for General Neurology Name: Kate Reed Age: [...] at next appointment in 6 months. Amanda Ewign PA-C Encounter Diagnosis ICD-10-CM 1. Migraine without [...] stores and had difficulty attending a recent Re[employer] game. The dizziness began after a significant [...] Was restarted on (more content not included)... [facility] 07-14-2025 History of Present illness Narrative Formatting of this note is different fro m the original. Images from the original note were not included. [facility] for [facility] Name: Kate Reed Age: [...] stores and had difficulty attending a recent Re[employer] game. The dizziness began after a significant [...] started after her first vertigo attack in 2018 where she was admitted for multiple days. [...] 4.00 k/uL Monocytes % 13.3 % Abs [place] 0.46 <0.87 k/uL Eosinophils % 3.8 % [...] MRI of the cervical spine without contrast. Academic Administrator: PSCB Transcribe Date/Time: Sep 28 2022 11:22A Dictated by : ERICK MARCANO MD This examination was interpreted and the report reviewed and electronically signed by: ERICK MARCANO MD on Sep 28 2022 11:24AM EST This note was dictated using [employer] speech recognition software and may contain some [...] which included preparing to see the patient, okbg-nl-bwfc patient care, completing clinical documentation, obtaining and/or reviewing separately obtained history, performing a medically appropriate examination, counseling and educating the patient/family/caregiver, and ordering medications, tests, or procedures. Recording using FaceAlerta software for draft documentation of the visit was discussed with the patient/authorized bottling equipment sales representative; all questions welcomed and answered. Patient/authorized bottling equipment sales representative agreed to proceed documented in this encounter [facility] 04-13-2025 Telephone encounter Note Formatting of this note might be differe nt from the original. Rx medication for patients travel [facility] 04-13-2025 Miscellaneous Notes Formatting of this note might be differe nt from the original. Rx medication for patients travel documented in this encounter [facility] 04-13-2025 Instructions Jovi Kiser APRN.DELIVERY DIRECTOR - 04/13/2025 10:47 AM EDT Preventative: Gabapentin [...] buy supplements cheaper (especially Coenzyme Q10) at www.Spot Influence or at [employer]Brck. Vitamins and herbs that show potential Magnesium: [...] Feverfew: Feverfew is a common garden herb teller to [place] and popular in [facility] as a treatment for disorders typically controlled [...] pepperoni, Pickled holly Pods of broad carrillo (Bulgarian beans, Portuguese pea pods, Lao (ju) beans, kamara and navy beans Ripe [...] much light. These can be obtained at [employer] or [employer] Foods: see list above. 2. Limit use of acute treatments (tqcz-zuy-psubixo medications, triptans, etc.) to no more than [...] and quiet environment. Relax and reduce stress. Lhhvzar0Kvwfd is a free mamadou that can instruct you on some simple relaxtion and breathing techniques. Http://Mojo [employer] is a free website that provides teaching [...] ensuing treatment plans will be released via [employer] and discussed during your follow-up appointment. MyChart: Please ask the schedulers to give you an activation code. The main way of communication is by MindMixerhart rather than phone lines, so if you have not signed up, please do so. [employer] is also the way that you can review your labs and testing. We are not able to contact everyone to tell them results are normal. If you do not hear back from us regarding testing you have had, it should be considered normal or within normal range. If you have any questions about the results, you are free to message us. [employer] is meant for simple questions regarding medications, possible side effects, or other simple straight forward questions in limited sentences, rather than multiple paragraphs of discussion. [employer] is not meant for, or efficient for [...] do not comment on most testing on Raykuhart in a message or commentary unless there is a concern. You will not receive a message from me of the result unless there is a specific concern of the result I need you to address further in care with us or your primary medical team. Make sure to check your my chart email or mamadou. documented in this encounter [facility] 04-13-2025 Note HNO ID: [id number] Author: JOVI KISER APRN.DELIVERY DIRECTOR Service: ? Author Type: Nurse Practitioner Type: Progress Notes Filed: 04/13/2025 12:31 Note Text: [facility] for [facility] Neu[facility] Name: Kate Reed Age: [age] year old Gender: female Primary Care Provider: Carol Lebron MD 04/13/2025 - General Neurology, Jovi Kiser APRN.DELIVERY DIRECTOR ASSESSMENT Kate Reed is a 49-year-old female presenting for follow-up primarily due to ongoing dizziness, which she reports occurs more often than not. She describes the dizziness as a persistent rocking or imbalance sensation rather than a spinning vertigo. The symptoms are exacerbated by complex visual environments, significantly impacting her quality of life-for example, she avoids stores and had difficulty attending a recent Re[employer] game. The dizziness began after a significant [...] without status migrainosus, not intractable G43.009 Kate Wilsonladarius has been previously approved for an Oral [...] Was on Rizotriptan. Dizziness: Going on since 2017, when her initial [...] Her neurological examina (more content not included)... [facility] 04-13-2025 History of Present illness Narrative Formatting of this note is different fro m the original. Images from the original note were not included. [facility] for [facility] Name: Kate Reed Age: [age] year old Gender: female Primary Care Provider: Carol Lebron MD 04/13/2025 - General Neurology, Jovi Kiser APRN.DELIVERY DIRECTOR ASSESSMENT Kate Reed is a 49-year-old female presenting for follow-up primarily due to ongoing dizziness, which she reports occurs more often than not. She describes the dizziness as a persistent rocking or imbalance sensation rather than a spinning vertigo. The symptoms are exacerbated by complex visual environments, significantly impacting her quality of life-for example, she avoids stores and had difficulty attending a recent Re[employer] game. The dizziness began after a significant vertigo episode in 2017 and has since become chronic. She has [...] 6. Keep headache diary/ Use migraine jone mmaadou to keep track of headache days 7. Follow up in 3 months Encounter Diagnosis ICD-10-CM 1. Persistent postural-perceptual dizziness H81.8X9 CONSULT TO PSYCHOLOGY CONSULT TO PHYSICAL THERAPY 2. Migraine without aura and without status migrainosus, not intractable G43.009 Kateher Kalpana Reed has been previously approved for [...] Was on Rizotriptan. Dizziness: Going on since 2017, when her initial [...] only) Follow up in 2-3 months 12/07/22- [facility] Assessment and Plan: ASSESSMENT/PLAN: 1. Menstrual migraine [...] go to stores anymore. Went to the [employer] game and almost had to walk out [...] DATE OF EXAM: Sep 28 2022 11:15AM WRM 0295 - MRI BRAIN WO/W IVCON / [...] MRI of the cervical spine without contrast. Academic Administrator: LEE Transcribe Date/Time: Sep 28 2022 11:22A [...] which included preparing to see the patient, gvvf-iu-ymfo patient care, completing clinical documentation, obtaining and/or reviewing separately obtained history, counseling and educating the patient/family/caregiver, ordering medications, tests, or procedures, communicating with other HCPs (not separately reported), and care coordination (not separately reported). Jovi Kiser APRN.TRACEE [facility] General Neurology [address] [place] [address] Appointment: [phone] In regards to blood work, testing, and [...] as applicable. . documented in this encounter [facility] 04-05-2025 Note HNO ID: [id number] Author: CAROL LEBRON MD Service: ? Author Type: Physician Type: Progress Notes Filed: 04/05/2025 18:45 Note Text: Reason for Visit Follow up DENTON Love is a 49-year-old female presenting for evaluation of recent changes in mood and exacerbation of migraines, as well as a refill of her control medication. aKte reports feeling not like herself and experiencing [...] migraine pain as ice pick to the hinduism and notes associated nausea. She has been [...] last Pap smear in November at the [facility]. She is aware of the increased risk of blood clots associated with control use after age 50 and confirms that she is still menstruating. She maintains an active lifestyle and stays well-hydrated. She is planning a trip to [place] in April and expresses concern about managing [...] PCV) Mammogram Screening@ Review Of Systems Head:(+)migraines Ears/Nose/Mouth/Throat:(+)sneezing,(+)itch iness Gastrointestinal:(+)nausea Psychiatric:(+)sadness,(+)anxiety Physical Exam BP 138/82 Pulse [...] lasting up t (more content not included)... [facility] 04-05-2025 History of Present illness Narrative Formatting of this note is different fro m the original. Reason for Visit Follow up DENTON Love [...] migraine pain as ice pick to the hinduism and notes associated nausea. She has been [...] last Pap smear in November at the [facility]. She is aware of the increased risk of blood clots associated with control use after age 50 and confirms that she is still menstruating. She maintains an active lifestyle and stays well-hydrated. She is planning a trip to [place] in April and expresses concern about managing [...] PCV) Mammogram Screening@ Review Of Systems Head:(+)migraines Ears/Nose/Mouth/Throat:(+)sneezing,(+)itch iness Gastrointestinal:(+)nausea Psychiatric:(+)sadness,(+)anxiety Physical Exam BP 138/82 Pulse [...] needed for nausea associated with migraines. 4. [facility] (current) use of hormonal 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 (Z79.3) Patient is currently using Junel 12/07, a 21-day cycle oral contraceptive. Discussed increased risk of blood clots with continued use after age 50. - Refilled Junel 12/07 prescription. - Advised patient to follow up with OUTDOOR GUIDE in one year to discuss alternative contraceptive options. Voice recognition software was used to compose this office note. Please excuse any unintended typographical errors. Recording using FaceAlerta software for draft documentation of the visit was discussed with the patient/authorized bottling equipment sales representative; all questions welcomed and answered. Patient/authorized bottling equipment sales representative agreed to proceed Carol Lebron MD documented in this encounter [facility] 04-05-2025 Instructions Carol Lebron MD - [...] cycle prescription. 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 - Follow up with your farm equipment assembler within the next year regarding your control. - Let me know if your migraines persist or worsen despite these changes. Enjoy your upcoming trip to [place], [place], and [place]! Safe travels! documented in this encounter [facility] 02-25-2025 Note HNO ID: [id number] Author: CAROL LEBRON MD Service: ? Author [...] Health Maintenance Depression Screening Colorectal Cancer Screening [facility] Vaccine(1 of 2) Pneumococcal Vaccine: 50+(1 of [...] and overall progr (more content not included)... [facility] 02-04-2025 History of Present illness Narrative Formatting of this note is different fro m the original. Images from the original note were not [...] regimen Incision/wound: no issues postoperatively healed 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 Again stressed the importance [...] regular rate and rhythm Edema: no Abdomen: \nondistended Extremities: No deformities, edema, skin discoloration, clubbing or cyanosis Neuro: CN II-XII intact; moves all extremities The sensitive examination was discussed with the Patient or Patient's Authorized Enrichment Director. As applicable, any other physician, advance practice provider, medical student, or other health professional student that will be observing or involved in the sensitive examination for educational or training purposes was discussed with the Patient or Authorized Enrichment Director. The Patient or Authorized Enrichment Director has agreed to proceed with the sensitive examination. (Sensitive examination includes inspection and/or palpation of the breasts, pelvis, prostate and anorectal regions) Anorectal: Anus: closed Tone: normal to high External skin: healthy Digital exam: not performed as palpation with q tip demonstrates exquisite tenderness in the posterior midline Biometrician present: Yes, [facility] Assessment Assessment & Diagnosis: Encounter Diagnosis ICD-10-CM [...] consistency stools. Lita Schultz MD, FACS, FASCRS advertising supervisor Department of Colorectal Surgery Digestive Disease and Surgery [place] I have confirmed and edited as necessary, the PFSH and ROS obtained by others. documented in this encounter [facility] 02-04-2025 Note HNO ID: [id number] Author: LITA SCHULTZ MD Service: ? Author [...] regimen Incision/wound: no issues postoperatively healed 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 Again stressed the importance [...] Patient or Patient's (more content not included)... [facility] 01-20-2025 Telephone encounter Note Formatting of this note might be differe nt from the original. Pt informed Maria Luisa Lofton MA [facility] 01-20-2025 Miscellaneous Notes Formatting of this note might be differe nt from the original. Pt informed Maria Luisa Lofton MA Please let patient know that her labs looked good overall. Her WBC count is still slightly low. I would like to repeat in 4 weeks to monitor. Katherine Tirado PA-C 01/20/[address] this encounter [facility] 01-20-2025 Telephone encounter Note Formatting of this note might be differe nt from the original. Please let patient know that her labs looked good overall. Her WBC count is still slightly low. I would like to repeat in 4 weeks to monitor. Katherine Tirado PA-C 01/20/2025 [facility] 12-16-2024 Jossie Dacosta MD - 12/16/2024 8:46 AM EST Hi [...] fast and fiber/slow-digesting carbohydrates Aim for plain spanish yogurt. Add your own fruit Try prepping hard-boiled eggs the night before and have 2 the next morning for breakfast Bread: try haleigh or a true sourdough bread. (I buy mine from the [employer] - not the bread section) You might also try the X[employer]r Software grain-free bread mix. You can find this online or at [employer]: https://www.HEXIO/Products/Produ ct/Aqgvnvn-Vvppi-Kjc.aspx For dinner, aim for the plate method: 1/2 the plate should be non-starchy vegetable, 1/4 plate starch, 1/4 plate of protein (I would double up on the protein to achieve fullness and satiety) Reviews of some high protein, low carb pastas: https://Context Relevant.Realtime Worlds/article/sovm-crun-irfc a/ You might try prepping a LARGE GREEN smoothie from the hyper-nourishment protocol the night before as a to-go breakfast that you sip on all morning. The Hyper-Nourishment Protocol deliberately inundates the body with szrqs-0-utpa foods such as flax seeds and carley seeds while minimizing, and eventually eliminating, the intake of eyfkq-5-jmqs foods like processed oils and animal products. This intentional approach facilitates the breakdown of omega-3 fatty acids, swiftly reducing inflammation A video showing you how to make it: https://www.youtube.com/watch?v=vPT7tJloNh o Ways to prevent a binge: When you [...] and a link to their free recipes: https://www.[employer]/medit bpytbhly-ojhe-4/ https://www.[employer]/recip es/ Exercise guidelines: Cardio (walking, swimming, biking, running, [...] With Isabel at home exercises: Indoor walking: https://Y[employer]J Industries.be/nmNCH-Ueq8E?si=ui-xgRK7jG 3d20ON Indoor walking: https://[employer].Cmune/wTO5b5zzWCz?si=KW0PS6QOd3 4uLami Indoor walking: https://[employer].Cmune/_bq49gbCyPw?si=_qLvHJ-UVk 0qq8S9 Strength training: https://[employer].Cmune/0yYiErHenzs?si=fE29hmOqBI ewNRUo Track Inches, not weight! The waist to [...] to help sleep Magnesium L-threonate, Inositol, L-theanine https://www.Sports MatchMaker.Realtime Worlds/collections/ sleep Another supplement to help fight inflammation: Resveratrol + curcumin https://InView Technology.com/collections/front page/products/ehyajnyan-pqnlonxv-ggnipshuz ol AVOID ALCOHOL: https://www.who.int/europe/news-room/02-164300-hl-cecpv-sg-cxuveyu-guyyalqwuhv-is-s cib-unv-nje-health https://www.hhs.gov/about/// ov-uaonrxg-fjcfkav-brhbat-ivj-iuifdksw-dhara m-hbqbtxk-vwgdmt-risk.html With any supplements or medications if you develop any rashes, swelling, difficulty breathing or any other concerning symptom please seek immediate medical attention. documented in this encounter [facility] 12-16-2024 History of Present illness Narrative Formatting of this note is different fro m the original. Images from the original note were not included. [facility] Initial Consult I have communicated my name and active licensure. The patient's identity and physical location were verified at the time of this visit. 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 All of the patient's questions and concerns were addressed. Follow up visit planning discussed Jossie Lew MD MPH MEd documented in this encounter [facility] 12-16-2024 Note HNO ID: [id number] Author: JOSSIE LEW MD Service: ? Author Type: Physician Type: Progress Notes Filed: 12/16/2024 15:09 Note Text: [facility] Initial Consult I have communicated my name and active licensure. The patient's identity and physical location were verified at the time of this visit. 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 [facility] 12-04-2024 History of Present illness Narrative Formatting of this note is different fro m the original. COLORECTAL SURGERY Post-Op Virtual Visit Kate Reed [...] Allergen Reactions Erythromycin GI Upset Honey Swelling LMP 11/14/2024 Not done virtual visit Assessment Assessment: Appetite: Eating and drinking well BMs: Going daily, she is to remain on bowel regimen Incision/wound: no issues postoperatively healed 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 Again stressed the importance of a good bowel regimen and bowel habits. Patient to stay well hydrated. Not strain and use squatty potty. Follow up as needed. Radha Pham APRN.DELIVERY DIRECTOR documented in this encounter [facility] 12-04-2024 Note HNO ID: [id number] Author: RADHA PHAM APRN.DELIVERY DIRECTOR Service: ? Author Type: Nurse Practitioner Type: [...] Allergen Reactions Erythromycin GI Upset Honey Swelling [facility] 11/14/2024 Not done virtual visit Assessment Assessment: Appetite: Eating and drinking well BMs: Going daily, she is to remain on bowel regimen Incision/wound: no issues postoperatively healed 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 Again stressed the importance of a good bowel regimen and bowel habits. Patient to stay well hydrated. Not strain and use squatty potty. Follow up as needed. Radha Pham APRN.[facility] 12-02-2024 Note HNO ID: [id number] Author: ASHLEE MUNOZ MD Service: ? Author Type: Physician Type: Progress Notes Filed: 12/02/2024 13:02 Note Text: I spent a total of 41+ minutes on the date of the service which included preparing to see the patient, gkfi-xg-jrkx patient care, completing clinical documentation, obtaining and/or reviewing separately obtained history, counseling and educating the patient/family/caregiver, ordering medications, tests, or procedures, communicating with other HCPs (not separately reported), and independently interpreting results (not separately reported). [facility] 12-02-2024 History of Present illness Narrative Formatting of this note might be differe nt from the original. I spent a total of 41+ minutes on the date of the service which included preparing to see the patient, ueon-gv-ezby patient care, completing clinical documentation, obtaining and/or reviewing separately obtained history, counseling and educating the patient/family/caregiver, ordering medications, tests, or procedures, communicating with other HCPs (not separately reported), and independently interpreting results (not separately reported). In office visit, December 02, 2024 Start review of records, labs, interim events 11:36 AM Kate Reed is 49 year old. 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 Ann-Marie Brooks in [facility] (she lives [place] hours from [facility]). Had Crossword Puzzle Maker exam with Gena Thompson CNP at [facility] today. Her priorities are: VMS and weight gain VMS started around age 44 (5 years ago), while on 12/07 cyclically. Bad symptoms even on active pills. H/o endometriosis, s/p laparoscopic surgery for pelvic endometriosis done. S/p cholecystectomy. weight gain for 3 years. Usual weight 150-160 lbs, today 171 lbs. Denies GSM. Has been on OCP since teenager. Tried some options with local OUTDOOR GUIDE as noted below but plagued with BTB. [...] ink. The 10-year ASCVD risk score (Yfn DK, et al., 2019) is: 1.7% Values used [...] No resulted procedures found. Last Screening Mammogram [facility] SCREENING Collected: 01/08/2018 7:34 AM (Final result) Narrative: * * *Final Report* * * DATE OF EXAM: Jan 08 2018 7:34AM [facility] 0581 - [facility] SCREENING / PROCEDURE REASON: Encounter for screening mammogram for malignant neoplasm of breast * * * * Physician Interpretation * * * * RESULT: #[id number] - [facility] SCREENING BILATERAL DIGITAL SCREENING MAMMOGRAM WITH CAD: [...] exams dated: 01/04/2017 mammogram, 09/28/2015 mammogram - [facility], and 09/14/2014 mammogram. The tissue of both breasts is heterogeneously dense. This may lower the sensitivity of mammography. No significant masses, calcifications, or other findings are seen in either breast. There has been no significant interval change. Impression: IMPRESSION: NEGATIVE There is no mammographic evidence of malignancy.A 1 year screening mammogram is recommended. Milena Bell M.D., ch/james:01/08/2018 08:42:40 Customs Port Director: Jesenia Villalobos RT(R)(M), [facility] letter sent: Normal over 40 Mammogram BI-RADS: 1 Negative Academic Administrator: James Transcribe Date/Time: Jan 08 2018 7:23A [...] SMA with me or my colleague Dr Fucsh --Weight loss Office Visit on 12/02/24 CONSULT TO NUTRITION THERAPY CONSULT TO MENOPAUSE SHARED MEDICAL APPOINTMENT *Canceled* ENDOCRINE MEDICAL WEIGHT MANAGEMENT Ashlee Munoz MD Patient seen and examined with Dr. Ewa Rushing, First Year Specialized Women's Health Fellow Call if any discussed symptoms not better or worse. Note dictated using voice recognition software. documented in this encounter [facility] 12-02-2024 Instructions Ashlee Munoz MD - 12/02/2024 12:25 PM EST Images from the original note were not included. Ashlee Munoz MD, [facility] Professor of therapeutic mentor & Reproductive Biology Street Light Servicer Supervisor & Women's Health [place] Dept of Subspecialty Women's Health IMPORTANT NOTE: we cannot refill prescriptions without a yearly appointment. Appointments OFTEN BOOK OUT SEVERAL months. Please ARRANGE appointments in advance so that prescription refill requests are not INTERUPPTED. Contact info: Scheduling appointments: (Crossword Puzzle Maker call center, best when calling after hours, [...] slots too) is our new Women's Health [facility]- a resource to schedule if needing to make appointments for several different specialities, for new patients etc. I see patients in the following locations: Sat & : [place] or virtual Sat, & Sat are my teaching/administrative days, but can add on virtually if an urgent hormonal need arises. Getting an appointment when you need it: Please always start with contacting numbers above for an appointment first. If needing an earlier appointment from what is offered, I can add you to my schedule if you send me a MIT CSHub message. Since MindMixerhart messages go to our nursing teams first, [...] vary. Times that are best for me: Mondays-, (virtual only, before 2 preferred) Tuesdays, (virtual only, before 2 preferred) Wednesdays (most busy day for me, but have some private slots at 8 am and after 2:30 the office can offer) 9:30 (virtual) or 2:00-3:30 (virtual or [place] A81) Fridays (virtual only, before 2 preferred) Please set up an established relationship with any of my Crossword Puzzle Maker colleagues for your general char conveyor tender cellar needs, including preventive annuals, as I work as a platform consultant for the specialty hormonal concerns. For typical gynecologic concerns (bleeding, vaginal infections, preventive annual etc), I work with an amazing group of doctors and nurse practitioners as a team, as well as the [facility] visits that are available online or at walk-in clinics throughout [place]. If you don't get a timely response from me, please don't hesitate to be persistent! Occasionally we may have nurses and schedulers helping out temporarily in our office, causing some delays in getting the message to me. MIT CSHub messages are allowed a 3 business day [...] can also be uploaded by patients via MIT CSHub (will need to send a message notifying [...] following up with my partners for their char conveyor tender cellar/menopause care).These are also called shared medical appointments, [...] health group visits for 15 years (before [facility]), and they were a lot of fun! [...] for these visits? Please call . They knot picker cloth the phone right away without long holds [...] of the visit (will be sent via MIT CSHub). This ensures that I understand each patient's [...] a weight loss shared medical appointment. Call [phone] during typical business hours to schedule. Yoder [...] sponsored products, didn't find as helpful. The life agent school by Herlinda Olea, who is the family coach that helps train many of the life agent across the [place]. Her podcast is excellent, but goes into a variety of topics including managing stress, weight loss, finances, getting where you want with your job, etc. Phit-N-Phat (also called losing 100 pounds with Shy). No nonsense, straight shooting, plenty of curse words-great content. Different approach: Brain over binge Helpful website with free mamadou: https://www.Everlaw Weight management appointments: Most clinicians are within the Bariatric and Metabolic [place]. Within gynecology, we have a few clinicians that have focused on weight loss too: Tomasa Galindo MD, Ankita Cox CNP (working together in [place]) & Mary Jane Sarmiento MD ([facility]). Need help in determining which options are best for you? Connect with a Health Navigator today to schedule a call: or https://my.[facility].org/landing/kim ght-management You can also call our [facility] to schedule all your care needs: [phone] Here are some resources for reliable information on menopause. Trustable websites: -[place] Menopause Society- now called the Menopause Society (has multiple short videos from specialists around the world, geared towards patients and doctors). Website is menopause.org. https://www.Portapure.com/@MenopauseSociety. -[facility] menopause websites: Provides locations, clinician names: https://MartMania.[facility].org/services/me nopause-treatment Conversational articles and videos: https://Filecoin.providence hospitalLexaraorg/navigat ing-menopause/ Formal health education page: https://eTax Credit Exchange/health/dise ases/27678-hgfdbpgxk [facility] page: https://Polarizonicssnow hillsCoolTVorg/landing/wom fws-vzprigsewkfhb-ergnag[facility] women's health info: -The [facility] Health Library and Health Essentials sections unlocks lots of info: https://Polarizonicssnow hillpopchips/health/dise ases -Speaking of women's health (has searchable page for multiple brief articles): Https://ClearMesh Networks/ Podcast/Video from TwitChat[employer]: [facility] videos, several can be found by going into Wantworthy and putting in the search terms [facility] Menopause [place], or use links below: Mood, sleep, hotflashes and hormones with colleagues from sleep and behavoiral health programs 2022: https://www.Milabraube.com/watch?v=Oaw_1aTQzE g General discussion about hormones pre and post menopause 2021: https://www.Milabraube.com/watch?v=g5XaXJwY0N 4 Older one from 2020 about menopause (still accurate info): https://www.Milabraube.com/watch?v=4eppCc4MoP A [place] Menopause Society- now called the Menopause Society (has multiple short videos from several of us on different topics, geared towards patients and doctors) https://www.Milabraube.com/@MenopauseSociety Menopause: Non-Hormonal Treatment & Relief for Hot [...] black cohosh and soy products) are available qvrl-xpc-szlloqc but are not FDA-approved. Some prescription medications [...] set up an appointment, you can call [phone]. Smartphone Mamadou for Hot Flashes: Sofi --> mindfulness/hypnosis approach for hot flash control A few good books: - On to help with symptoms. It is called Managing Hot Flushes and Night Sweats: A cognitive behavioural self-help guide to the menopause. by Laila Landeros & Amanda Avelar - Perimenopower by Taty Corcoran Non-prescription, herbal, mioq-oqq-mnvcfdb therapies: Most of the following have been compared to placebo treatment (sugar pill) and has been shown to be not any more effective. Though these are not considered very effective treatments, most of these are considered reasonably safe, but all supplements can be associated with liver enzyme problems. Drug: Evening Cove Oil Side Effects: Nausea, diarrhea, headache. Effectiveness: [...] per day compared to placebo. Are the cvth-dqh-hbzvzpp herbal products (botanicals) safe? While safe when [...] promoted. Be cautious of products promoted through: Card[employer] Dimensionsarketers. Direct mailings. People and Pages. Ads disguised as valid news articles. Ads in the back of magazines. Additional red flags to look for include: Big claims: If products claim to be a cure for your condition, or gives outrageous claims, be cautious. Source: Be wary if the product is only offered through one golf club weigher or purchased only through a healthcare provider [...] with a local psychologist, or self taught. [place] Menopause Society has a great article on this if you Google menopause, [place] Menopause Society, CBT Managing Hot Flushes and [...] a few colleagues) documented in this encounter [facility] 12-02-2024 Note HNO ID: [id number] Author: ASHLEE MUNOZ MD Service: ? Author Type: Physician Type: Progress Notes Filed: 12/02/2024 13:02 Note Text: In office visit, December 02, 2024 Start review of records, labs, interim events 11:36 AM Kate Reed is 49 year old. 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 Ann-Marie Brooks in [facility] (she lives 1[place]5 hours from [facility]). Had Crossword Puzzle Maker exam with Gena Thompson CNP at [facility] today. Her priorities are: VMS and weight gain VMS started around age 44 (5 years ago), while on 12/07 cyclically. Bad symptoms even on active pills. H/o endometriosis, s/p laparoscopic surgery for pelvic endometriosis done. S/p cholecystectomy. weight gain for 3 years. Usual weight 150-160 lbs, today 171 lbs. Denies GSM. Has been on OCP since teenager. Tried some options with local OUTDOOR GUIDE as noted below but plagued with BTB. [...] 11/11/2024 BMI 27.75 (more content not included)... [facility] 12-02-2024 Note HNO ID: [id number] Author: GENA THOMPSON APRN.CNM Service: ? Author Type: Final Expense Agent Type: Progress Notes Filed: 12/02/2024 10:44 Note Text: Kate is a 49 year old who presents for an annual gynecologic exam without complaints. Still get period: Yes, OCPs Bleeding amount bothersome: No Bleeding between periods: No Period symptoms: Cramps Menopause symptoms: Hot flashes; Night sweats HPV vaccine: No; HPV:negative Last pap smear: 09/01/2023 done in [facility] History of abnormal pap: Yes, history of abnormal PAP smears Hx of positive HPV many years ago Bothersome pelvic pain: No Last mammogram: 2023 normal [facility] Patient concerns for STD exposure: No. Mood swings: No Insomnia: Yes Hemorrhoidectomy 6 weeks ago and still having tenderness with bowel movements Seeing Dr. Munoz later this morning to discuss perimenopause symptoms. OB History T2 L2 SAB0 IAB0 Ectopic0 Multiple0 Live Births0 Crossword Puzzle Maker History LMP: 11/14/2024, Having periods Age at Menarche: 12 Age at First : Age at Menopause: Crossword Puzzle Maker History Comments: Sexual Activity: Yes; Male Contraception: [...] discussed with the Patient or Patient's Authorized Enrichment Director. As applicable, any other physician, advance practice provider, medical student, or other health professional student that will be observing or involved in the sensitive examination for educational or training purposes was discussed with the Patient or Authorized Enrichment Director. The Patient or Authorized Enrichment Director has agreed to proceed with the sensitive [...] external genitalia normal, normal Bartholin's glands, urethra, [place]'s glands, no vulvar lesions, no cervical lesions, [...] needed Gena Lees (more content not included)... [facility] 12-02-2024 History of Present illness Narrative Formatting of this note is different fro m the original. Kate is a 49 year old who presents for an annual gynecologic exam without complaints. Still get period: Yes, OCPs Bleeding amount bothersome: No Bleeding between periods: No Period symptoms: Cramps Menopause symptoms: Hot flashes; Night sweats HPV vaccine: No; HPV:negative Last pap smear: 09/01/2023 done in [facility] History of abnormal pap: Yes, history of abnormal PAP smears Hx of positive HPV many years ago Bothersome pelvic pain: No Last mammogram: 2023 normal [facility] Patient concerns for STD exposure: No. Mood swings: No Insomnia: Yes Hemorrhoidectomy 6 weeks ago and still having tenderness with bowel movements Seeing Dr. Munoz later this morning to discuss perimenopause symptoms. OB History T2 L2 SAB0 IAB0 Ectopic0 Multiple0 Live Births0 Crossword Puzzle Maker History LMP: 11/14/2024, Having periods Age at Menarche: 12 Age at First : Age at Menopause: Crossword Puzzle Maker History Comments: Sexual Activity: Yes; Male Contraception: [...] discussed with the Patient or Patient's Authorized Enrichment Director. As applicable, any other physician, advance practice provider, medical student, or other health professional student that will be observing or involved in the sensitive examination for educational or training purposes was discussed with the Patient or Authorized Enrichment Director. The Patient or Authorized Enrichment Director has agreed to proceed with the sensitive [...] external genitalia normal, normal Bartholin's glands, urethra, [place]'s glands, no vulvar lesions, no cervical lesions, [...] Gena Thompson APRN.CNM documented in this encounter [facility] 11-17-2024 Instructions Katherine Tirado PA-C - 11/17/2024 11:18 AM EST Red Yeast Rice Extract Fish Oil Capsules documented in this encounter [facility] 11-17-2024 Note HNO ID: [id number] Author: KATHERINE TIRADO PA-C Service: ? Author Type: Physician Grease Refiner Operator Type: Progress Notes Filed: 11/17/2024 11:46 Note [...] exam, mammogram this year. Last colonoscopy at [facility] in 2021, due in 10 years, [...] to seek care sooner. Katherine Tirado PA-C [facility] 11-17-2024 History of Present illness Narrative Formatting of this note is different fro m the original. 11/17/2024 Patient presents with: Yearly Exam SUBJECTIVE: This is a 49 year old that is here today for wellness and refill on cymbalta. Overall doing well. Admits not exercising regularly currently and diet has been a little poor during the holidays. Plans to restart treadmill/elliptical. Follows outside [facility] for well woman exam, mammogram this year. Last colonoscopy at [facility] in 2021, due in 10 years, [...] ORAL) Take by mouth once daily. JUNEL 12/07, , 1-20 mg-mcg per tablet [...] Katherine Tirado PA-C documented in this encounter [facility] 11-04-2024 Miscellaneous Notes Formatting of this note might be differe nt from the original. Spoke with pt and information listed below given. Pt verbalizes understanding. Physical scheduled. Lindy Hauser LPN Small amount sent in. Needs seen for any further refills. Thank you Silvina Presley APRN.CNP Prescription Refill Information The patient has been [...] 2024 11:10 AM documented in this encounter [facility] 11-04-2024 Telephone encounter Note Formatting of this note might be differe nt from the original. Spoke with pt and information listed below given. Pt verbalizes understanding. Physical scheduled. Lindy Hauser LPN [facility] 11-04-2024 Telephone encounter Note Formatting of this note might be differe nt from the original. Small amount sent in. Needs seen for any further refills. Thank you Silvina Presley APRN.TRACEE [facility] 11-04-2024 Telephone encounter Note Formatting of this note is different fro m the original. Prescription Refill Information The patient has been [...] An LPN November 04, 2024 11:10 AM [facility] 10-23-2024 Note HNO ID: [id number] Author: CHLOE GERARD APRN.LEAD SYSTEMS ARCHITECT Service: ? Author Type: Nurse Supervisor Blood Donor Recruiters Type: Anesthesia Procedure Notes Filed: 10/23/2024 10:58 Note Text: ANESTHESIOLOGY PROCEDURE NOTE Airway General Information Procedure Start Time/Medication Administration: 10/23/2024 10:51 AM Procedure End Time: 10/23/2024 10:51 AM Patient location during procedure: OR Timeout Performed Pre-procedure: timeout performed Consent Obtained: Yes Patient identity confirmed: arm band, care team manager and patient Staffing Anesthesiologist: Deepak Alonso MD LEAD SYSTEMS ARCHITECT: Chloe Gerard APRN.LEAD SYSTEMS ARCHITECT Performed by: anesthesiologist and LEAD SYSTEMS ARCHITECT Indications and Patient Condition Indications for airway management: anesthesia and airway protection Preoxygenated: yes anesthesia circuit Patient position: sniffing Method: asleep Final Airway Details Final airway type: supraglottic airway Number of attempts at approach: 1 Final Supraglottic Airway: i-gel Size 4 Seal Adequate: yes SIGNATURE: Chloe Gerard APRN.LEAD SYSTEMS ARCHITECT PATIENT NAME: Kate Reed DATE: October 23, 2024 TIME: 10:57 AM CSN: [id number] [facility] 09-14-2024 Instructions Nelly Taylor APRN.DELIVERY DIRECTOR - 09/14/2024 9:07 AM EDT ASSESSMENT/PLAN: 1. [...] Discussed expected course of illness Nelly Taylor APRN.DELIVERY DIRECTOR documented in this encounter [facility] 09-14-2024 History of Present illness Narrative Formatting of this note is different fro m the original. Subjective HPI Kate Reed is a 49 [...] Discussed expected course of illness Nelly Taylor APRN.DELIVERY DIRECTOR documented in this encounter [facility] 09-09-2024 History of Present illness Narrative Formatting of this note might be differe nt from the original. Radiology Service Progress Note PATIENT NAME: Kate [...] PATIENT PRESENTS WITH AN IMPLANTABLE OR ATTACHED SHIP MANAGER: No RADIOLOGY DEPARTMENT: General X-ray: Exam(s) Completed: Chest X-Ray PERIPHERAL IV DATA: Not applicable SIGNED BY: RT Rain(R) September 09, 2024 2:39 PM documented in this encounter [facility] 09-09-2024 History of Present illness Narrative Formatting of this note is different fro m the original. Patient presents with: Cough: Cough, fever, bodyaches, [...] with rest, cold medicine, and analgesia. Nicko Eagle MD documented in this encounter [facility] 07-23-2024 Instructions Lita Schultz MD - 07/23/2024 [...] 64 ounces) Squatty potty (can purchase at [employer] or on ISpeak) Stool Softeners (if needed) maximum doses listed, [...] tablets (17.2 mg)) documented in this encounter [facility] 07-23-2024 History and physical note Formatting of this note is different fro m the original. COLORECTAL SURGERY New Patient Visit Chief Complaint: [...] Current Outpatient Medications Medication Sig Dispense Refill , 1-20 mg-mcg per tablet Take 1 [...] the procedure well without any immediate complications Biometrician present: Yes, Jonah Lambert Assessment Assessment & Diagnosis: Encounter Diagnosis ICD-10-CM 1. External hemorrhoid K64.4 2. Hemorrhoidal skin tag K64.4 Treatment plan: She is going to medical management and get her straining under control After this she will message us about having the skin tag removed under anesthesia. (We will update her H&P in preop) Lita Schultz MD, FACS, FASCRS advertising supervisor Department of Colorectal Surgery Digestive Disease and Surgery [place] I have confirmed and edited as necessary, the PFSH and ROS obtained by others. [facility] 07-23-2024 History and physical note Formatting of this note is different fro m the original. COLORECTAL SURGERY New Patient Visit Chief Complaint: [...] the procedure well without any immediate complications Biometrician present: Yes, Jonah Moranlps Assessment Assessment & Diagnosis: Encounter Diagnosis ICD-10-CM 1. External hemorrhoid K64.4 2. Hemorrhoidal skin tag K64.4 Treatment plan: She is going to medical management and get her straining under control After this she will message us about having the skin tag removed under anesthesia. (We will update her H&P in preop) Lita Schultz MD, FACS, FASCRS advertising supervisor Department of Colorectal Surgery Digestive Disease and Surgery [place] I have confirmed and edited as necessary, the PFSH and ROS obtained by others. documented in this encounter [facility] 04-02-2024 Hospital Discharge instructions Patient Education [...] (called stenosis) and press against a nerve. [id number] The [employer]. [address] [place] [address], [place] [address]. All rights reserved. This information is not intended as a substitute for professional medical care. Always follow your healthcare professional's instructions. Follow Up Care 04/02/2024 07:49:53 With:PROSPER COBOS APRN - [facility] Address: [address] [place] [address]- When:2-4 days [facility] 04-02-2024 Note Discharge Instructions Thank you for allowing [facility] to assist you with your healthcare needs. The following is important discharge information regarding your hospital visit. Diagnosis from Today's Visit Leg pain What to Do Next Instructions from Your Care Team No qualifying data available. Post Acute Orders No qualifying data available. You Need to Schedule the Following Appointments Follow Up with PROSPER COBOS APRN, CNP When: When:Within 2-4 days Where:[address] [place], [place] [id number]- Allergies Honey Medications Please ask your primary [...] (called stenosis) and press against a nerve. [id number] [employer]. [address] [place] [address], [place] [address]. All rights reserved. This information is not intended as a substitute for professional medical care. Always follow your healthcare professional's instructions. Additional Information VACCINATE! IT SAVES LIVES! Members of the community who have not yet received the COVID-19 vaccine and would like to receive it can visit one of [facility] vaccine clinics. There are many vaccine clinic locations within the [facility]. For locations and available times, please visit www.gettheshot.coronavirus.[place].gov/. It is important to note that some COVID mobile vaccine clinics are held outdoors and may be canceled in rainy or stormy conditions. To learn more about pediatric vaccinations (ages 5-11), we invite you to visit the [facility] webpage. https://www.[facility].org/pages/2019- Jqyzk-Lsciswmmzbj-Tgbkyouwyz-Asked-Questio ns.html To learn more about the COVID-19 vaccine, we invite you to visit the CDC website for a list of frequently asked questions. https://www.cdc.gov/coronavirus/2019-ncov/ vaccines/faq.html [facility] Patient Portal Access Instructions: Stay connected with your healthcare team and access your personal medical information anytime with the [facility] Patient Portal. If you would like a full copy of your medical records please contact the [facility] Medical Records Department Saturday through Saturday between 8a.m. and 4:30p.m. Please follow the directions below to access the portal: 1.Access the email account you provided upon registration to the [facility].2.Look for an invitation email from [facility].3.Open the email and access the invitation link: Accept Invitation to [facility].Fill in the required gutierrez to create your account. Sign into [email or web address] with your username and password that you [...] you will allow to register on the [facility] Patient Portal for access to your information. You can also access the [facility] Patient Portal on the [employer] mamadou. Simply click on Health Records under Health Data and then click on the [facility] logo. HOW TO SAFELY DISPOSE OF PRESCRIPTION [...] Call your local pharmacy or go to http://bit.[employer] Pharmaceuticals/6A4Sl7n to find one close to you.3.Make use of household items: Use cat litter or old coffee grounds to dispose medications if other options are not available. Mix your drugs with these household products, seal them in an airtight container and throw it into the garbage. Call [facility]: [phone] to be sure your drugs can be [...] been reviewed and explained to me and IBRIANNA HEATHER C understand my current condition and have read and understand these discharge instructions. I have received a written copy of the plan/instructions. If I have questions, I am aware that I should contact my doctor. Patient/Enrichment Director Signature: Date/Time: Relationship to Patient: Witness Name/Signature: __ Date/Time: [facility] 08-12-2023 Miscellaneous Notes Formatting of this note might be differe nt from the original. JENNIFFER 12/07/22 with YANELI MILLER none scheduled- needed 6 month follow up Refill 05/03/23 with qty: 12 and 2 refills Galilea Lunsford LPN [facility] Assessment/Plan ASSESSMENT/PLAN: 1. Menstrual migraine without status [...] Frandy Smith MD documented in this encounter [facility] 05-30-2023 History of Present illness Narrative Formatting of this note is different fro m the original. This note was created using Sabesim. Subjective Kate Reed is a 47 year old female. HPI Patient presents with sore throat, right ear pain, congestion and cough over the past 3 days. No fever. She did develop a headache last night. Her granddaughter was sick recently. She did also fly back from [facility] just prior to the symptoms starting. [...] Sita Garza PA-C documented in this encounter [facility] 05-30-2023 Instructions Sita Garza PA-C - 05/30/2023 8:36 AM EDT May continue mucinex Cepacol throat lozenges Flonase nasal spray If you develop fever after 5 days or not better after 10 days of symptoms be seen again documented in this encounter [facility] 05-01-2023 Miscellaneous Notes Formatting of this note might be differe nt from the original. Rx the medication Regards, Carol Lebron MD documented in this encounter [facility] 02-18-2023 Miscellaneous Notes Formatting of this note might be differe nt from the original. JENNIFFER: 12/07/22 with [facility] NOV: 06/07/23 with [...] Frandy Smith MD documented in this encounter [facility] 12-07-2022 History of Present illness Narrative Formatting of this note is different fro m the original. ESTABLISHED PATIENT VISIT CHIEF COMPLAINT: Follow up Migraines and Dizziness HISTORY OF PRESENT ILLNESS: Kate Reed is a 47 year old female, BMI 28.05 kg/m2 with a PMH significant for Migraine. Most recently followed up with Ryann Kiser CNP on 11/14/2022: She went to [...] which included preparing to see the patient, heky-dm-mhsg patient care, completing clinical documentation, obtaining and/or reviewing separately obtained history, performing a medically appropriate examination, counseling and educating the patient/family/caregiver, and ordering medications, tests, or procedures. PDMP website checked and validated. All prescriptions have been APPROPRIATELY filled. No suspicious activity was identified. 12/07/2022 by Frandy Smith MD documented in this encounter [facility] 11-14-2022 History of Present illness Narrative Formatting of this note is different fro m the original. Images from the original note were not included. [facility] for General Neurology Follow Up / Established Virtual Visit I received consent from the patient to perform the visit as a virtual encounter. Individuals who were included in, or assisted with the encounter were: Kate Acuna Brandoncarmela Jovi Kiser APRN.DELIVERY DIRECTOR Chief Complaint/Issues: Kate Reed is a 47 [...] spontaneous and fluent without dysarthria. Short and middle or intermediate school principal memory, cognition and general fund of knowledge [...] which included preparing to see the patient, jtra-lv-[id number] patient care, completing clinical documentation, obtaining and/or reviewing separately obtained history, and counseling and educating the patient/family/caregiver. Jovi Kiser APRN.[facility] General Neurology [address] [place] [address] Appointment: [phone] In regards to blood work, testing, and radiology reports these are released automatically to the patients. We do not comment on most testing on Raykuhart in a message or commentary unless there [...] at the discretion of your PCP/referring physician \ documented in this encounter [facility] 10-16-2022 History of Present illness Narrative Formatting of this note is different fro m the original. Episode Visit Count: 1 Therapist That Will Accept/Oversee The Plan Of Care: Galilea Marquez Start of Care Date: 10/16/22 Onset Date: 09/19/22 (prior episode 3 years ago) Plan of Care Certification Date: 10/16/22 Next Certification Due Date: 10/16/22 Patient Identified by Name and Date of : Yes REHABILITATION AND SPORTS THERAPY PHYSICAL THERAPY EVALUATION PLAN OF CARE: Assessment: Kate Reed presents with diagnosis of vertigo that interferes [...] of Visits Planned: 1 Planned Treatment Interventions: Self-senior care management (96670);Neuromuscular re-education (92305) PLAN FOR NEXT VISIT: DC - negative [...] Past Relevant Medical Conditions: Headaches;Anxiety;Vertigo Preferred Language: Bulgarian Employment: [employer]: See Comment [employer] 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 Intake Information: Prescription present [...] Negative Tragal Pressure: negative Positional Testing Right Start-Hallpike: No nystagmus;Asymptomatic Left Christina-Hallpike: Asymptomatic;No nystagmus Right Ear Down: Asymptomatic;No nystagmus [...] Gait Observation: unremarkable Education: Education Learning Preferences: Demonstration;Explanation;Performance;Prin sandy Materials Barriers: None Learning/educational needs: Plan of Care;Safety;Lifestyle changes Education Provided: Yes, see treatment interventions for education provided Education Provided To: Patient Education Mode/Type: Demonstration;Explanation/Discussion;Perfo rmance Response to Education/Teach Back: States/Identifies;Return Demonstration TREATMENT: PT Treatment Interventions: Neuromuscular Re-Education;Self-Fci Management Evaluation Neuromuscular Re-Education: 1: VORx1 seated [...] with an (*). Patient education as noted. Self-Fci Management: 1: *discussed vestibular testing negative and [...] Galilea Marquez PT documented in this encounter [facility] 10-01-2022 Instructions Jovi Kiser APRN.DELIVERY DIRECTOR - 10/01/2022 12:06 PM EST Plan: Consult to vestibular rehab Meclizine as needed, limit use Updated Topamax order to reflect current dosage, taking 25mg daily Can continue rizatriptan and naratriptan for migraines (patient aware to not take at same time, naratriptan for menstrual migraines only) Consider Gabapentin for vertigo treatment in the future Follow up 4 in weeks documented in this encounter [facility] 10-01-2022 History of Present illness Narrative Formatting of this note is different fro m the original. Images from the original note were not included. [facility] for General Neurology Follow Up / Established Virtual Visit I received consent from the patient to perform the visit as a virtual encounter. Individuals who were included in, or assisted with the encounter were: Kate Reed Jovi Kiser APRN.DELIVERY DIRECTOR Chief Complaint/Issues: Kate Reed is a 47 [...] in rate, volume and articulation. Short and middle or intermediate school principal memory, cognition and general fund of knowledge [...] which included preparing to see the patient, wzej-hs-ynkn patient care, completing clinical documentation, obtaining and/or reviewing separately obtained history, counseling and educating the patient/family/caregiver, communicating with other HCPs (not separately reported), communicating results to the patient/family/caregiver, and care coordination (not separately reported). Jovi Ksier APRN.[facility] [address] [place] [address] Appointment: [phone] In regards to blood work, testing, and radiology reports these are released automatically to the patients. We do not comment on most testing on [place] in a message or commentary unless there [...] your PCP/referring physician documented in this encounter [facility] 09-28-2022 History of Present illness Narrative Formatting of this note is different fro m the original. Radiology Service Progress Note DATE OF SERVICE: [...] Routine Brain Spine: Cervical spine SIGNATURE: RT Izabella(R) PATIENT NAME: Kate Reed DATE: September 28, 2022 TIME: 10:15 AM documented in this encounter [facility] 09-21-2022 Miscellaneous Notes Formatting of this note might be differe nt from the original. See telephone encounter dated 09/20/2022. Sirena Tompkins LPN Patient originally had Imaging scheduled for 10/2022, nursing encouraged her to reschedule for sooner date. Now needing sooner follow up date scheduled. Nursing placed patient's name on cancellation list. Please advise otherwise or note and close encounter. Sirena Tompkins LPN documented in this encounter [facility] 09-21-2022 Miscellaneous Notes Formatting of this note might be differe nt from the original. Patient to have MRI imaging completed on [...] to fax ER visit charting to [facility] office for provider to review. Sirena Tompkins LPN Did pt get imaging studies ordered at last visit? If symptoms not resolving recommend pt return to the ER. 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 They treated her with [...] today. Please advise. documented in this encounter [facility] 09-10-2022 Miscellaneous Notes Formatting of this note might be differe nt from the original. Active script sent 07/30/22 with 2 refills. documented in this encounter [facility] 08-03-2022 Instructions Gino Man APRN.[facility] - 08/03/2022 4:58 PM EDT EXPRESS [...] plants grow in many areas across the [facility] and throughout the world. East of the [facility], poison sheron commonly grows as a climbing vine. In the [place] area and west, poison sheron tends to grow low to the ground as a shrub. Poison oak most often grows west of the [facility], and poison sumac inhabits boggy areas in the southeastern part of the [place]. The plants are not usually found in [...] poison sheron dermatitis. documented in this encounter [facility] 08-03-2022 History of Present illness Narrative Formatting of this note is different fro m the original. Images from the original note were not [...] of care. This note was generated using [employer] software. It may contain errors in wording, punctuation, or spelling. Gino Man APRN.TRACEE documented in this encounter [facility] 08-02-2022 Evaluation + Plan note Future Scheduled TestsPathology Crossword Puzzle Maker Request 08/02/22Urine Culture 08/02/22MA Mammo Screening Bilateral w/ Kirill 08/02/22 [facility] 08-02-2022 Miscellaneous Notes Formatting of this note is different fro m the original. Patient has been identified by name and [...] Naz Melendrez LPN documented in this encounter [facility] 07-30-2022 History of Present illness Narrative Formatting of this note is different fro m the original. NEW PATIENT (CONSULT) HISTORY AND PHYSICAL EXAM (Virtual visit with video) PRIMARY CARE PHYSICIAN: Carol Lebron MD REASON FOR CONSULT: Dizziness REFERRING PHYSICIAN: Carol Lebron MD CHIEF COMPLAINT: Dizziness and headache. For this virtual visit, the patient has been identified by name and (MRN and photo identification as well if available). Those taking part in visit: Patine and physician via [employer] English. Consent for this visit received from patient. HISTORY OF PRESENT ILLNESS: Kate Reed is a 46 year old female, with a PMH significant for that below. States dizziness is not all the time. States symptoms started in 2019. Was hospitalized for 4 days at [facility] for symptoms at time of initial episodes. [...] HPI. SKIN:Negative for lesions, rash, and itching. HEMATOLOGIC/LYMPHATIC/IMMUNOLOGIC:Negative for prolonged bleeding, bruising easily or swollen [...] which included preparing to see the patient, fgic-hl-djgw patient care, completing clinical documentation, obtaining and/or reviewing separately obtained history, performing a medically appropriate examination, counseling and educating the patient/family/caregiver, and ordering medications, tests, or procedures. Frandy Smith MD documented in this encounter [facility] 07-06-2022 History of Present illness Narrative Formatting of this note is different fro m the original. Subjective HPI Kate Reed is a 46 [...] Nelly Taylor APRN.CNP documented in this encounter [facility] 07-06-2022 Instructions Nelly Taylor APRN.CNP - [...] have an infection. documented in this encounter [facility] 06-12-2022 Miscellaneous Notes Noted and agree Monique Presley APRN.CNP Patient of Dr. Lebron. Protocol Recommended: See provider within 24 hours due to deep cough and patient's concern for pneumonia. Patient plans to go to [facility] care today for further evaluation. Reason for [...] SOB, chest pain or chest tightness 8. RDYXGC-WFAB-VNANS:same 9. HIGH RISK DISEASE: does not appear to be high risk-see history 10. VACCINE:yes 11. BOOSTER:no 12. : no 13. OTHER SYMPTOMS: + fatigue, +headache, + muscle pain. Denies SOB, sore throat, nausea, vomiting or diarrhea 14. O2 SATURATION MONITOR: n/a Protocols used: CORONAVIRUS (COVID-19) DIAGNOSED OR [id number] documented in this encounter [facility] 05-07-2022 History of Present illness Narrative [...] May 02, 2022 for dizziness and giddiness. [address] Reviewed and care everywhere. Vital signs [...] a migraine or other concern. Jacy Newman APRN.POT RUNNER Medical Decision Making: Problems: Moderate: New problem with uncertain prognosis Data: Independent interpretation of test from other physician/QHCP Risk: Moderate: Drug management Medical Decision Making Level: 4 - Moderate documented in this encounter [facility] 05-07-2022 Miscellaneous Notes Addressed through [employer]. Left message for return call. Patient needs [...] to symptoms. She states she went to [facility] ER and had testing done and was [...] patient. Thank you. documented in this encounter [facility] 05-02-2022 Hospital Discharge instructions Patient Education 05/02/2022 20:05:49 Dizziness, Uncertain Cause Dizziness (Uncertain Cause) Dizziness is a common symptom. It may be described as lightheadedness, spinning, or feeling like you are going to faint. Dizziness can have many causes. Be sure to tell the healthcare provider about: All medicines you take, including prescription, wzkh-odd-gbnkdzd, herbs, and supplements Any other symptoms you [...] Chest, arm, neck, back, or jaw pain [id number] [place] [id number]. All rights reserved. This information is not intended as a substitute for professional medical care. Always follow your healthcare professional's instructions. Follow Up Care 05/02/2022 16:06:45 With:PROSPER COBOS APRN - DELIVERY DIRECTOR Address: [address] [facility] [place] [address]- When:2-4 days [facility] 05-02-2022 Miscellaneous Notes Patient returns call and triage completed. See triage encounter. Patient to go to [facility] ED for evaluation. Shayna Palmer RN Call placed to patient with no answer. Message left for patient to return call and ask to speak to a triage nurse. Shayna Palmer RN Triage please contact patient. documented in this encounter [facility] 05-02-2022 Miscellaneous Notes Patient calls to report that she is having dizziness again. She reports that it went away earlier today and just recently came back. Triage completed with difficulty. Patient all over with varying descriptions of how dizziness feels. Patient becoming anxious. Recommended patient go to ED now. Patient going to go to [facility] ED to be evaluated for anything [...] 11. : No Protocols used: DIZZINESS - [id number] documented in this encounter [facility] 04-30-2022 Miscellaneous Notes jenniffer--01/31/22 Next--none noted Last refill --10/03/21 60 with 3 refills Last labs--02/23/[address] encounter [facility] 04-19-2022 Miscellaneous Notes Patient has been identified by name and date of : Yes Patient phones for refill(s): Pending Prescriptions Disp Refills FLUOXETINE 40 MG CAPSULE 30 capsule 11 Sig: Take 1 capsule by mouth once daily. JUANITA: No Prescription not received at [facility]. Previous order put in as a [...] Shayna Palmer RN documented in this encounter [facility] 04-06-2022 Instructions Erinn Barton APRN.CNP - 04/06/2022 11:50 AM EDT OK to resume normal activities in 1 week. No tampons until next cycle. Follow up at 6 months for final postop check, or sooner if needed. documented in this encounter [facility] 04-06-2022 History of Present illness Narrative [...] you received about pain medications helpful? Yes Biometrician offered:Patient declines OBJECTIVE: LMP 02/08/2022 General: Well [...] sooner prn. Patient expressed understanding. Erinn Barton APRN.CNP documented in this encounter [facility] 03-29-2022 Miscellaneous Notes Patient would like [...] 04-18-2022 ASC Colon documented in this encounter [facility] 03-27-2022 History of Present illness Narrative HISTORY AND PHYSICAL Kate Kalpana Reed 1975 REFERRING PHYSICIAN: Self CHIEF COMPLAINT: [...] She was scheduled for a colonoscopy at [facility], but would like to have a hemorrhoidectomy at the same time. She notes bowel movements every three days, mostly hard BMs. 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 She had been taking fiber supplements [...] entered by the nurse and reviewed by tn Nursing Notes: Ekta Coto 03/27/2022 8:04 AM [...] wishes to proceed. Will schedule this at [facility] on the same day I have answered all questions to the patient s satisfaction and the patient has no further questions. I have confirmed and edited as necessary, the PFSH and ROS obtained by others. . Diagnoses: (K64.9) Hemorrhoids, unspecified hemorrhoid type (primary encounter diagnosis) (Z12.11) Screening for colon cancer Return to Clinic: The patient will be scheduled for procedures at [facility]. I spent a total of 21 minutes on the date of the service which included preparing to see the patient with review of any pertinent medical records, herw-bv-lpde patient care, obtaining oral medical history from the patient in this encounter, counseling and educating the patient/family/caregiver, and scheduling of procedures, and completing appropriate medical documentation. Carmen Tony MD documented in this encounter [facility] 03-27-2022 Nurse Note REVIEW OF SYSTEMS: [...] 09/16/2013 Ekta Coto documented in this encounter [facility] 02-27-2022 History of Present illness Narrative [...] Erinn Barton APRN.CNP documented in this encounter [facility] 02-23-2022 History of Present illness Narrative [facility] IRB#: [id number] Study name: Restrictive Opioid Prescribing [...] 2022 1:53 PM documented in this encounter [facility] 02-23-2022 History of Present illness Narrative [...] Khanna MD, MPH documented in this encounter [facility] 02-23-2022 Nurse Note [facility] [...] Dena Bhardwaj RN documented in this encounter [facility] 02-14-2022 History of Present illness Narrative [...] patient have an advanced directive: No Does [facility] have a copy of the patient's [...] prescribed by anesthesia, internal medicine, surgeon, or JAVA FLEX DEVELOPER Stop NSAIDs, Aspirin (ASA), vitamins, herbal supplements, [...] jewelry, body piercing, makeup, contacts, lotions, nail stateless on fingers, or anything in hair on arrival to surgery Wear low healed shoes and loose fitting clothing Leave all valuables at home or with a family member Directions to [facility] and the [facility] Parking/parking validation on the day [...] if after hours patient instructed to call aluminum hydroxide process operator and ask for busperson char conveyor tender cellar onc resident. CHOCO program offered to patient: [...] None Educator: Aylin Clayton LPN [facility] documented in this encounter [facility] 02-13-2022 Instructions Aylin Clayton LPN - [...] THESE MEDICATIONS 7 DAYS PRIOR TO SURGERY: (Motrin/ibuprofen/Naproxen/Aleve/Advil), Aspirin, vitamin E, herbal medications, diet pills, and qkar-rzq-epbxows medications. Tylenol (acetaminophen) is okay. I will not wear jewelry, body piercing(s), makeup, nail stateless, hairpins, or contacts on the day of [...] my surgeon. Discuss medication changes with your imaging analyst or primary care physician as well. If I stopped taking my blood-thinning medication, I will ask the surgeon when to resume taking it. If I am an outpatient, a responsible person will drive me home and it was suggested that someone stay with me for 24 hours. I understand that a bar useful or busser or cabdriver is NOT a responsible caregiver. [...] time for surgery, I must call my manager surgical after 2pm the day before surgery. Pre-operative instructions given by: PREOP INSTRUCTIONS THE DAY OF SURGERY/CHECK IN - Report to DESK P20 located in the surgery center (unless otherwise instructed to go to J-1). A map is located in Your Surgical Guide Book. - The online version of the surgical guide book can be found at: [email or web address] - The address of the surgical center is: [address] [place] [address] INFECTION PREVENTION - Please notify your doctor [...] Your Surgical Guide Book for more information. [facility] TEAM - At the [facility], we have a multidisciplinary team of caregivers that includes fellows, residents, nurse practitioners, physician assistants, clinical nurse specialists, nurses, medical assistants, patient care nursing assistants, social workers, residential case manager and many others. We all have different [...] to dispose of unused medications at three [facility] locations: [facility] pharmacy, [facility] pharmacy, and the [facility] (inside the parking garage on the [...] answering service to speak with the doctor busperson. Dr. Raymundo Dr. Khanna ([facility]) Dr. Sanchez Dr. Barksdale Dr. Torre Dr. Flores Dr. Poole Dr. Smith Letty Andrews, DELIVERY DIRECTOR Valentina Spear, TRACEE Barton, TRACEE After 4:30 pm or on holidays or weekends, call: or . Ask the aluminum hydroxide process operator to page the OUTDOOR GUIDE busperson.' Please DO NOT use MyChart for post-surgery concerns. documented in this encounter [facility] 02-12-2022 Instructions Sita Eugene PA-C - 02/12/2022 1:39 PM EDT PATIENT PREOPERATIVE INSTRUCTIONS Dena Khanna MD has scheduled you for your procedure at this surgery center: [facility] [place] Scheduling Office: [phone] --If no call by 4pm the Saturday before surgery, please call this number. [address] [place] [address]. Please read below carefully for your personalized [...] Procedures: - YOU MUST HAVE A RESPONSIBLE CELL LINER TAKE YOU HOME. A ROLL TENDER OR TRUCK HOP CANNOT BE MADE A RESPONSIBLE CELL LINER. - We recommend that a responsible person [...] call the Saturday before. Your surgeon s pricing coordinator will tell you what time to call the office. - If you have not reached the departmental pricing coordinator by 5 P.M., call [phone] after 5 P.M. the day before your surgery. Please be aware that emergency situations arise, which may delay or change your surgical time. If this happens, we will notify you as soon as possible and regret any inconvenience. If you already have an Advance Directive, please fax a copy to [phone] or email to for it to be [...] Sita Eugene PA-C documented in this encounter [facility] 02-12-2022 History and physical note PREANESTHESIA CONSULT CLINIC TELEHEALTH VISIT Patient has been identified by name and date of : Yes This is a virtual visit using [employer] video visit. It require patient-provider interaction for [...] requiring medication, no history of angina, CHF, [place], cardiac surgery or stents. Denies rest pain, gangrene or revascularization/amputation for PVD. No history of cardiovascular symptoms or problems. GI: No history of GI symptoms or problems. No history of esophageal varices, recent ascites, or ETOH greater than 2 drinks per day. : See HPI OUTDOOR GUIDE: Negative for abnormal vaginal bleeding, abnormal vaginal [...] device. I spent more than 0-20 minutes fjim-qq-vedn with the patient and over half the time was devoted to counseling and/or coordination of care. This is a virtual visit. It required patient-provider interaction for the medical decision making as documented above. SIGNATURE: Sita Eugene PA-C PATIENT NAME: Kate Reed DATE: 02/12/22 TIME: 1:37 PM PAGER/CONTACT #: documented in this encounter [facility] 11-24-2020 History of Present illness Narrative Formatting of this note might be differe nt from the original. Radiology Service Progress Note PATIENT NAME: Kate [...] 2020 3:16 PM documented in this encounter [facility] 12-03-2013 History of Past i llness Narrative Problem Noted Date Resolved Date Chronic cholecystitis without calculus 4 11/24/2020 Biliary dyskinesia 10/30/2013 11/24/2020 Abdominal pain 09/07/2013 11/24/2020 Altered bowel function 09/07/2013 1 Irregular menstrual cycle 2011 Overview: Irregular periods documented as of this encounter (statuses as of 02/12/2022) [facility] of Past illness Narrative* Problem Noted Date Resolved Date Chronic cholecystitis without calculus 4 11/24/2020 Biliary dyskinesia 10/30/2013 11/24/2020 Abdominal pain 09/07/2013 11/24/2020 Altered bowel function 09/07/2013 1 Irregular menstrual cycle 2011 Overview: Irregular periods documented as of this encounter (statuses as of 02/14/2022) [facility] of Past illness Narrative* Problem Noted Date Resolved Date Chronic cholecystitis without calculus 4 11/24/2020 Biliary dyskinesia 10/30/2013 11/24/2020 Abdominal pain 09/07/2013 11/24/2020 Altered bowel function 09/07/2013 Irregular menstrual cycle 2011 Overview: Irregular periods documented as of this encounter (statuses as of 02/20/2022) [facility] of [facility] Narrative* Problem Noted Date Resolved Date Chronic cholecystitis without calculus 4 11/24/2020 Biliary dyskinesia 10/30/2013 11/24/2020 Abdominal pain 09/07/2013 11/24/2020 Altered bowel function 09/07/2013 Irregular menstrual cycle 2011 Overview: Irregular periods documented as of this encounter (statuses as of 02/23/2022) [facility] Narrative* Problem Noted Date Resolved Date Chronic cholecystitis without calculus 4 11/24/2020 Biliary dyskinesia 10/30/2013 11/24/2020 Abdominal pain 09/07/2013 11/24/2020 Altered bowel function 09/07/2013 Irregular menstrual cycle 2011 Overview: Irregular periods documented as of this encounter (statuses as of 02/23/2022) [facility] of [facility] illness Narrative* Problem Noted Date Resolved Date Chronic cholecystitis without calculus 4 11/24/2020 Biliary dyskinesia 10/30/2013 11/24/2020 Abdominal pain 09/07/2013 11/24/2020 Altered bowel function 09/07/2013 Irregular menstrual cycle 2011 Overview: Irregular periods documented as of this encounter (statuses as of 02/23/2022) [facility] of [facility] Narrative* Problem Noted Date Resolved Date Chronic cholecystitis without calculus 4 11/24/2020 Biliary dyskinesia 10/30/2013 11/24/2020 Abdominal pain 09/07/2013 11/24/2020 Altered bowel function 09/07/2013 Irregular menstrual cycle 2011 Overview: Irregular periods documented as of this encounter (statuses as of 02/27/2022) [facility] of [facility] Narrative* Problem Noted Date Resolved Date Chronic cholecystitis without calculus 4 11/24/2020 Biliary dyskinesia 10/30/2013 11/24/2020 Abdominal pain 09/07/2013 11/24/2020 Altered bowel function 09/07/2013 Irregular menstrual cycle 2011 Overview: Irregular periods documented as of this encounter (statuses as of 03/27/2022) [facility] of [facility] Narrative* Problem Noted Date Resolved Date Chronic cholecystitis without calculus 4 11/24/2020 Biliary dyskinesia 10/30/2013 11/24/2020 Abdominal pain 09/07/2013 11/24/2020 Altered bowel function 09/07/2013 Irregular menstrual cycle 2011 Overview: Irregular periods documented as of this encounter (statuses as of 03/30/2022) [facility] of [facility] Narrative* Problem Noted Date Resolved Date Chronic cholecystitis without calculus 4 11/24/2020 Biliary dyskinesia 10/30/2013 11/24/2020 Abdominal pain 09/07/2013 11/24/2020 Altered bowel function 09/07/2013 Irregular menstrual cycle 2011 Overview: Irregular periods documented as of this encounter (statuses as of 04/05/2022) [facility] Narrative* Problem Noted Date Resolved Date Chronic cholecystitis without calculus 4 11/24/2020 Biliary dyskinesia 10/30/2013 11/24/2020 Abdominal pain 09/07/2013 11/24/2020 Altered bowel function 09/07/2013 1 Irregular menstrual cycle 2011 Overview: Irregular periods documented as of this encounter (statuses as of 04/06/2022) [facility] of [facility] Narrative* Problem Noted Date Resolved Date Chronic cholecystitis without calculus 4 11/24/2020 Biliary dyskinesia 10/30/2013 11/24/2020 Abdominal pain 09/07/2013 11/24/2020 Altered bowel function 09/07/2013 1 Irregular menstrual cycle 2011 Overview: Irregular periods documented as of this encounter (statuses as of 04/18/2022) [facility] History of Past illness Narrative* Problem Noted Date Resolved Date Chronic cholecystitis without calculus 4 11/24/2020 Biliary dyskinesia 10/30/2013 11/24/2020 Abdominal pain 09/07/2013 11/24/2020 Altered bowel function 09/07/2013 1 Irregular menstrual cycle 2011 Overview: Irregular periods documented as of this encounter (statuses as of 04/20/2022) [facility] History of Past illness Narrative* Problem Noted Date Resolved Date Chronic cholecystitis without calculus 4 11/24/2020 Biliary dyskinesia 10/30/2013 11/24/2020 Abdominal pain 09/07/2013 11/24/2020 Altered bowel function 09/07/2013 1 Irregular menstrual cycle 2011 Overview: Irregular periods documented as of this encounter (statuses as of 04/30/2022) [facility] History of Past illness Narrative* Problem Noted Date Resolved Date Chronic cholecystitis without calculus 4 11/24/2020 Biliary dyskinesia 10/30/2013 11/24/2020 Abdominal pain 09/07/2013 11/24/2020 Altered bowel function 09/07/2013 01/07/202 1 Irregular menstrual cycle 2011 Overview: Irregular periods documented as of this encounter (statuses as of 05/02/2022) [facility] History of Past illness Narrative* Problem Noted Date Resolved Date Chronic cholecystitis without calculus 4 11/24/2020 Biliary dyskinesia 10/30/2013 11/24/2020 Abdominal pain 09/07/2013 11/24/2020 Altered bowel function 09/07/2013 1 Irregular menstrual cycle 2011 Overview: Irregular periods documented as of this encounter (statuses as of 05/02/2022) [facility] History of Past illness Narrative* Problem Noted Date Resolved Date Chronic cholecystitis without calculus 4 11/24/2020 Biliary dyskinesia 10/30/2013 11/24/2020 Abdominal pain 09/07/2013 11/24/2020 Altered bowel function 09/07/2013 1 Irregular menstrual cycle 2011 Overview: Irregular periods documented as of this encounter (statuses as of 05/07/2022) [facility] History of Past illness Narrative* Problem Noted Date Resolved Date Chronic cholecystitis without calculus 4 11/24/2020 Biliary dyskinesia 10/30/2013 11/24/2020 Abdominal pain 09/07/2013 11/24/2020 Altered bowel function 09/07/2013 1 Irregular menstrual cycle 2011 Overview: Irregular periods documented as of this encounter (statuses as of 05/07/2022) [facility] History of Past illness Narrative* Problem Noted Date Resolved Date Chronic cholecystitis without calculus 4 11/24/2020 Biliary dyskinesia 10/30/2013 11/24/2020 Abdominal pain 09/07/2013 11/24/2020 Altered bowel function 09/07/2013 1 Irregular menstrual cycle 2011 Overview: Irregular periods documented as of this encounter (statuses as of 05/28/2022) [facility] History of Past illness Narrative* Problem Noted Date Resolved Date Chronic cholecystitis without calculus 4 11/24/2020 Biliary dyskinesia 10/30/2013 11/24/2020 Abdominal pain 09/07/2013 11/24/2020 Altered bowel function 09/07/2013 1 Irregular menstrual cycle 2011 Overview: Irregular periods documented as of this encounter (statuses as of 06/12/2022) [facility] History of Past illness Narrative* Problem Noted Date Resolved Date Chronic cholecystitis without calculus 4 11/24/2020 Biliary dyskinesia 10/30/2013 11/24/2020 Abdominal pain 09/07/2013 11/24/2020 Altered bowel function 09/07/2013 1 Irregular menstrual cycle 2011 Overview: Irregular periods documented as of this encounter (statuses as of 07/06/2022) [facility] of Past illness Narrative* Problem Noted Date Resolved Date Chronic cholecystitis without calculus 4 11/24/2020 Biliary dyskinesia 10/30/2013 11/24/2020 Abdominal pain 09/07/2013 11/24/2020 Altered bowel function 09/07/2013 1 Irregular menstrual cycle 2011 Overview: Irregular periods documented as of this encounter (statuses as of 07/30/2022) [facility] History of Past illness Narrative* Problem Noted Date Resolved Date Chronic cholecystitis without calculus 4 11/24/2020 Biliary dyskinesia 10/30/2013 11/24/2020 Abdominal pain 09/07/2013 11/24/2020 Altered bowel function 09/07/2013 1 Irregular menstrual cycle 2011 Overview: Irregular periods documented as of this encounter (statuses as of 08/02/2022) [facility] History of Past illness Narrative* Problem Noted Date Resolved Date Chronic cholecystitis without calculus 4 11/24/2020 Biliary dyskinesia 10/30/2013 11/24/2020 Abdominal pain 09/07/2013 11/24/2020 Altered bowel function 09/07/2013 Irregular menstrual cycle 2011 Overview: Irregular periods documented as of this encounter (statuses as of 08/03/2022) [facility] History of Past illness Narrative* Problem Noted Date Resolved Date Chronic cholecystitis without calculus 4 11/24/2020 Biliary dyskinesia 10/30/2013 11/24/2020 Abdominal pain 09/07/2013 11/24/2020 Altered bowel function 09/07/2013 Irregular menstrual cycle 2011 Overview: Irregular periods documented as of this encounter (statuses as of 09/10/2022) [facility] History of Past illness Narrative* Problem Noted Date Resolved Date Chronic cholecystitis without calculus 4 11/24/2020 Biliary dyskinesia 10/30/2013 11/24/2020 Abdominal pain 09/07/2013 11/24/2020 Altered bowel function 09/07/2013 Irregular menstrual cycle 2011 Overview: Irregular periods documented as of this encounter (statuses as of 09/21/2022) [facility] History of Past illness Narrative* Problem Noted Date Resolved Date Chronic cholecystitis without calculus 4 11/24/2020 Biliary dyskinesia 10/30/2013 11/24/2020 Abdominal pain 09/07/2013 11/24/2020 Altered bowel function 09/07/2013 Irregular menstrual cycle 2011 Overview: Irregular periods documented as of this encounter (statuses as of 09/21/2022) [facility] History of Past illness Narrative* Problem Noted Date Resolved Date Chronic cholecystitis without calculus 4 11/24/2020 Biliary dyskinesia 10/30/2013 11/24/2020 Abdominal pain 09/07/2013 11/24/2020 Altered bowel function 09/07/2013 Irregular menstrual cycle 2011 Overview: Irregular periods documented as of this encounter (statuses as of 10/01/2022) [facility] History of Past illness Narrative* Problem Noted Date Resolved Date Chronic cholecystitis without calculus 4 11/24/2020 Biliary dyskinesia 10/30/2013 11/24/2020 Abdominal pain 09/07/2013 11/24/2020 Altered bowel function 09/07/2013 Irregular menstrual cycle 2011 Overview: Irregular periods documented as of this encounter (statuses as of 10/16/2022) [facility] History of Past illness Narrative* Problem Noted Date Resolved Date Chronic cholecystitis without calculus 4 11/24/2020 Biliary dyskinesia 10/30/2013 11/24/2020 Abdominal pain 09/07/2013 11/24/2020 Altered bowel function 09/07/2013 Irregular menstrual cycle 2011 Overview: Irregular periods documented as of this encounter (statuses as of 10/22/2022) [facility] History of Past illness Narrative* Problem Noted Date Resolved Date Chronic cholecystitis without calculus 4 11/24/2020 Biliary dyskinesia 10/30/2013 11/24/2020 Abdominal pain 09/07/2013 11/24/2020 Altered bowel function 09/07/2013 Irregular menstrual cycle 2011 Overview: Irregular periods documented as of this encounter (statuses as of 11/21/2022) [facility] History of Past illness Narrative* Problem Noted Date Resolved Date Chronic cholecystitis without calculus 4 11/24/2020 Biliary dyskinesia 10/30/2013 11/24/2020 Abdominal pain 09/07/2013 11/24/2020 Altered bowel function 09/07/2013 1 Irregular menstrual cycle 2011 Overview: Irregular periods documented as of this encounter (statuses as of 12/07/2022) [facility] History of Past illness Narrative* Problem Noted Date Resolved Date Chronic cholecystitis without calculus 4 11/24/2020 Biliary dyskinesia 10/30/2013 11/24/2020 Abdominal pain 09/07/2013 11/24/2020 Altered bowel function 09/07/2013 1 Irregular menstrual cycle 2011 Overview: Irregular periods documented as of this encounter (statuses as of 02/18/2023) [facility] of Past illness Narrative* Problem Noted Date Resolved Date Chronic cholecystitis without calculus 4 11/24/2020 Biliary dyskinesia 10/30/2013 11/24/2020 Abdominal pain 09/07/2013 11/24/2020 Altered bowel function 09/07/2013 1 Irregular menstrual cycle 2011 Overview: Irregular periods documented as of this encounter (statuses as of 05/02/2023) [facility] History of Past illness Narrative* Problem Noted Date Diagnosed Date Resolved Date Chronic cholecystitis without calculus 12/03/2013 11/24/2020 Biliary dyskinesia 10/30/2013 1 Abdominal pain 09/07/2013 11/24/2020 Altered bowel function 09/07/201311/24 Irregular menstrual cycle Overview: Irregular periods documented as of this encounter (statuses as of 05/30/2023) [facility] History of Past illness Narrative* Problem Noted Date Diagnosed Date Resolved Date Chronic cholecystitis without calculus 12/03/2013 11/24/2020 Biliary dyskinesia 10/30/2013 1 Abdominal pain 09/07/2013 11/24/2020 Altered bowel function 09/07/201311/24 Irregular menstrual cycle Overview: Irregular periods documented as of this encounter (statuses as of 08/12/2023) [facility] History of Past illness Narrative* Problem Noted Date Diagnosed Date Resolved Date Chronic cholecystitis without calculus 12/03/2013 11/24/2020 Biliary dyskinesia 10/30/2013 Abdominal pain 09/07/2013 11/24/2020 Altered bowel function 09/07/201311/24 Irregular menstrual cycle Overview: Irregular periods documented as of this encounter (statuses as of 09/22/2023) [facility] History of Past illness Narrative* Problem Noted Date Diagnosed Date Resolved Date Chronic cholecystitis without calculus 12/03/2013 11/24/2020 Biliary dyskinesia 10/30/2013 Abdominal pain 09/07/2013 11/24/2020 Altered bowel function 09/07/201311/24 Irregular menstrual cycle Overview: Irregular periods documented as of this encounter (statuses as of 09/22/2023) [facility] Giul[facility] Cristobal [facility] Note Date/Time September 08, 2025 1 2:23pm [facility] Medical Records Department [address] [place] [address] Emergency Department Summary 09/08/25 MR#: [id number] Acct: [id number] Name: KATE REED Rep #:[id number] : 1975 50 From: Giuliano Cristobal MD PCP: Dr. Carol Lebron MD Status:REG E R Location: ED HPI History of Present Illness Chief Complaint: General Illness Detail of Chief Complaint: Patient presents with nausea vomiting diarrhea. Informant: patient Onset/Context/Timing Onset: Yesterday Context: Sudden Onset Timing: Intermittent Quality: Initially crampy pain now none Location: Generalized Current Severity: Gone Maximum Severity: Moderate Worsened by: When patient had vomiting diarrhea Relieved by: Not applicable Associated Symptoms Associated Symptoms: recent courses of antibiotics for urinary tract infection Narrative Narrative: Patient is a 50-year-old woman. She presents because of nausea, vomiting diarrhea with abdominal pain. This started last evening. She has vomited 3 times. She has had 9 loose stools with odor. She denies history of pseudomembranous enterocolitis. She is presently not on antibiotics. She initially was placed on an antibiotic. It was changed because the bacteria was resistant. She then was placed on a different course of antibiotics. She now presents with abdominal pain with nausea, vomiting diarrhea. She does report chills and subjective fever. She does endorse thirst and dry mouth. She deniesorthostatic symptoms. She denies headache, visual, ocular auditory symptoms. She denies cardiac or respiratory symptoms. She presently denies urinary symptoms. She has not noteda rash. Prior similar symptoms: No Recent Illness/Hospitalization: Yes PFSH PFS Medical History Left knee pain Wears glasses Alcohol use Migraine headache History of IBS Non-smoker History of echocardiogram History of stress test Encounter for screening colonoscopy Internal hemorrhoid Anxiety Home Medications ?Medication ?Instructions ?Recorded ?Last Taken ?Type citalopram 40 mg tablet 40 mg PO DAILY 03/29/22 Unkn own History cholecalciferol (vitamin D3) 50 50 mcg PO DAILY Unknown History mcg (2,000 unit) capsule (Vitamin D3) cyanocobalamin (vitamin B-12) 50 50 mcg PO DAILY 09/10 Unknown History mcg tablet (Vitamin B-12) magnesium 200 mg tablet 200 mg PO DAILY 09/10/22 Unk nown History Allergy/AdvReac Type Severity Reaction Status Date / Time No Known Allergies Allergy Verified 09/08/25 07:55 Family History Father High blood cholesterol Mother Cancer Skin cancer Surgical History History of bladder suspension procedure History of laparoscopic cholecystectomy History of hemorrhoidectomy History of Social History household members: spouse Smoking Status: Never smoker alcohol intake: current substance use type: does not use ROS ROS ED Constitutional Constitutional ED: Reports chills, fever(s) and subjective; Denies sweats ENT ENT ED: Denies ear pain, rhinorrhea or sore throat Cardiovascular Cardiovascular: Denies chest pain Respiratory/Chest Respiratory/Chest: Denies cough, dyspnea or dyspnea on exertion Gastrointestinal Gastrointestinal: Reports abdominal pain, diarrhea, nausea and vomiting; Denies constipation or melena Genitourinary Genitourinary ED: Denies dysuria, hematuria or urinary frequency Musculoskeletal Musculoskeletal: Denies arthralgias, back pain or myalgias Integumentary Denies rash Neurologic Neurologic: Denies paresthesias or weakness Hematologic/Lymphatic Hematologic/Lymphatic: Reports systems reviewed and no addt'l complaints, exceptas documented EXAM Physical Exam Const Vital Signs: 09/08/25 07:55 09/08/25 07:57 09/08/25 08:04 Temperature 98 F 98 F Temperature Source Oral Oral Pulse Rate 98 90 Respiratory Rate 16 16 Respiratory Pattern Normal Blood Pressure 128/74 H 137/86 H Blood Pressure Mean 92 103 Pulse Ox 100 100 Oxygen Delivery Method Room Air Room Air 09/08/25 08:57 09/08/25 09:55 Temperature 98 F 98 F Temperature Source Oral Oral Pulse Rate 80 78 Respiratory Rate 12 12 Respiratory Pattern Blood Pressure 135/78 H 130/76 H Blood Pressure Mean 97 94 Pulse Ox 99 100 Oxygen Delivery Method Positive well nourished and well developed General Appearance ED: well developed and NAD; Negative for pallor HEENT Reports dry mucous membranes HEENT Narrative: Head is atraumatic and normocephalic. Ears are normal. Nares are patent. Posterior pharynx is normal. Mouth ED: Yes dry mucous membranes Mouth: dry mucous membranes Eyes PERRL and EOMs intact bilaterally General Eye ED: Negative for pale conjunctiva or scleral icterus Neck no lymphadenopathy and supple Resp normal respiratory effort and clear to auscultation bilaterally Cardio regular rate, regular rhythm, S1 normal heart sound, S2 normal heart sound and no murmurs GI non-distended and no masses; Negative for normal to inspection, nondistended, normoactive bowel sounds, non-tender or hepatosplenomegaly GI Narrative: Patient reports generalized tenderness but not pain to palpation. Auscultation: hypoactive bowel sounds Palpation: soft Back/Spine no CVA tenderness Neuro oriented x3, CN's II-XII intact bilaterally and no sensory deficits noted Sensorium / Orientation: alert Psych mental status grossly normal Skin no rashes or lesions noted, no wounds and skin turgor normal General Skin Exam: elasticity normal; Negative for jaundice or pallor MDM MDM MDM Narrative Medical decision making narrative: With patient having multiple episodes of diarrhea after several courses of antibiotics need to rule out pseudomembranous enterocolitis. This may representa viral illness as well. Clinically she is dehydrated. She will receive 1 L ofnormal saline wide open. CBC was obtained as well as BMP and lactate for restratification if her stool is positive for C. difficile. There are no records available regarding her diagnosis of urinary tract infection or what antibiotic she was on. Lab Data Attestation: I reviewed the patient's lab results. Lab results narrative: CBC is unremarkable. There is a slight shift neutrophils. Basic metabolic panel is normal. Patient is not been able to produce a stool specimen since arrival, 1055 Labs: Laboratory Results - last 24 hr 09/08/25 09/08/25 08:11 09:05 WBC 6.1 RBC 4.40 Hgb 13.6 Hct 39.9 MCV 90.7 MCH 30.9 MCHC 34.1 RDW Std Deviation 39.5 RDW Coeff of Omid 11.9 Plt Count 225 MPV 8.7 Immature Gran % (Auto) 0.200 Neut % (Auto) 74.3 H Lymph % (Auto) 13.4 L [place] % (Auto) 9.9 Eos % (Auto) 1.7 Baso % (Auto) 0.5 Absolute Neuts (auto) 4.5 Absolute Lymphs (auto) 0.81 L Nucleated RBC % 0 Sodium 136 Potassium 3.9 Chloride 101 Carbon Dioxide 25.8 Anion Gap 9 BUN 9 Creatinine 0.71 Estim Creat Clear Calc 97.60 Est GFR (MDRD) Non-Af 103 BUN/Creatinine Ratio 12.6 Glucose 97 Calcium 9.5 Urine Color Yellow Urine Clarity Sl. Cloudy Urine pH 7.0 Ur Specific [place] 1.010 Urine Protein Negative Urine Glucose (UA) Normal Urine Ketones Negative Urine Occult Blood 10 H Urine Nitrite Negative Urine Bilirubin Negative Urine Urobilinogen Normal Ur Leukocyte Esterase Negative UA is unremarkable. Treatment and Re-Evaluation :: During exit interview patient asked if her urine could be tested. Since it has been sitting on the counter for some time we will assess macro for spec gravity,ketones. Discharge Plan Triage Chief Complaint: General Illness ED Provider: Giuliano Cristobal Dx/Rx/DC Orders Clinical Impression: Nausea, vomiting and diarrhea, Dehydration, mild, Generalized abdominal cramping, Elevated blood pressure reading without diagnosis of hypertension Instructions: ED Diet Vomiting Diarrhea, ED Hypertension, To Be Confirmed Prescriptions: No Action citalopram 40 mg tablet 40 mg PO DAILY Vitamin B-12 50 mcg Tablet 50 mcg PO DAILY magnesium 200 mg Tablet 200 mg PO DAILY cholecalciferol (vitamin D3) [Vitamin D3] 50 mcg (2,000 unit) Capsule 50 mcg PO DAILY Primary Care Provider: Carol Lebron Referrals: Carol Lebron MD [Primary Care Provider, Internal Medicine] - 3-5 Days if not improving Print Language: Bulgarian Disposition Disposition: Home, Self Care What to do if you have Problems For any increased pain, shortness of breath, bleeding, nausea or vomiting, chestpain, or any unexpected problems, contact your Primary Care Provider. Call [facility] ([phone]) or report to the closest Emergency Room. Call 911 if necessary. 09/08/25 1123 <Electronically signed by Giuliano Cristobal MD> Cosigner Signature (if applicable): CC: Dr. Carol Lebron MD ~ Signed [facility] Work Phone: Evaluation + Plan note No data available for this section [facility] Evaluation + Plan note Future Appointments Appointment Date:05/04/2024 03:30:00 PM Scheduled Provider:ELAYNE MARINO MD Location:[facility] Appointment Type:[facility] Future Scheduled Tests Laboratory* Luteinizing Hormone 12/26/23 * Progesterone Level 12/26/23 * Thyroid Stimulating Hormone 12/26/23 * Follicle Stimulating Hormone Level 12/26/23 Radiology* MA Mammo Screening Bilateral w/ Kirill 06/17/23 * MA Mammo Screening Bilateral w/ Kirill 09/02/23 [facility] Evaluation note* Diagnosis Preop examination- Primary Preoperative examination, unspecified TOM (stress urinary incontinence, female) Female stress incontinence TOM (stress urinary incontinence, female) Female stress incontinence Outlet dysfunction [facility] Educational circumstances- Primary Educational circumstance TOM (stress urinary incontinence, female) Female stress incontinence Outlet dysfunction constipation documented [facility] this encounter [facility] [place] note* Diagnosis Stress incontinence- Primary Female stress incontinence TOM (stress urinary incontinence, female) Female stress incontinence Outlet dysfunction constipation documented in this encounter [facility] [place] note* Diagnosis Preoperative examination Preoperative examination, unspecified TOM (stress urinary incontinence, female) Female stress incontinence Outlet dysfunction constipation documented in this encounter [facility] note* Diagnosis Postoperative state- Primary Other postprocedural status documented in this encounter [facility] note* Diagnosis Hemorrhoids, unspecified hemorrhoid type- Primary Screening for colon cancer Special screening for malignant neoplasms, colon documented in this encounter [facility] [place] note* Diagnosis Hemorrhoids, unspecified hemorrhoid type- Primary Screening for colon cancer Special screening for malignant neoplasms, colon documented in this encounter [facility] [place] note* Diagnosis Dizziness- Primary Dizziness and giddiness Hx of migraines Personal history of other disorders of nervous system and sense organs Nausea Nausea alone documented in this encounter [facility] note* Diagnosis Urinary frequency- Primary documented in this encounter [facility] note* Diagnosis Vertigo- Primary Dizziness and giddiness Migraine without status migrainosus, not intractable, unspecified migraine type Menstrual migraine without status migrainosus, not intractable Menstrual migraine, without mention of intractable migraine without mention of status migrainosus Cervicalgia Spinal stenosis of cervical region Spinal stenosis in cervical region documented in this encounter [facility] [place] note* Diagnosis Rash- Primary Rash and other nonspecific skin eruption documented in this encounter [facility] noteNo assessment information availableWCenterville Work Phone: Evaluation note* Diagnosis Vertigo- Primary Dizziness and giddiness Menstrual migraine without status migrainosus, not intractable Menstrual migraine, without mention of intractable migraine without mention of status migrainosus documented in this encounter [facility] [place] note* Diagnosis Vertigo- Primary Dizziness and giddiness documented in this encounter [facility] note* Diagnosis Menstrual migraine without status migrainosus, not intractable- Primary Menstrual migraine, without mention of intractable migraine without mention of status migrainosus Migrainous dizziness Dizziness and giddiness documented in this encounter [facility] [place] note* Diagnosis Menstrual migraine without status migrainosus, not intractable- Primary Menstrual migraine, without mention of intractable migraine without mention of status migrainosus Migrainous dizziness Dizziness and giddiness [facility] Panic attacks Panic disorder without agoraphobia [facility] Acute URI- Primary Acute upper respiratory infections of unspecified site [facility] Diagnosis Vertigo Dizziness and giddiness Migraine without status migrainosus, not intractable, unspecified migraine type Menstrual migraine without status migrainosus, not intractable Menstrual migraine, without mention of intractable migraine without mention of status migrainosus Cervicalgia [facility] Vertigo Dizziness and giddiness Migraine [...] [facility] Encounter for screening mammogram [...] headache Headache [facility] [place] [facility] Diagnosis Gynecologic exam normal- Primary Cervical cancer screening Screening for malignant neoplasm of the cervix documented in this encounter [facility] note* Diagnosis Perimenopause- Primary Symptomatic menopausal or female climacteric states Perimenopausal vasomotor symptoms Symptomatic menopausal or female climacteric states Weight gain Abnormal weight gain documented in this encounter [facility] note* Diagnosis Postoperative examination- Primary Follow-up examination, following unspecified surgery documented in this encounter [facility] note* Diagnosis Abnormal weight gain- Primary Nutritional counseling documented in this encounter [facility] note* Diagnosis Abnormal WBC count- Primary Unspecified disease of white blood cells documented in this encounter [facility] note* Diagnosis Anal fissure- Primary [facility] [place] [facility]* Diagnosis Anxiety- Primary Anxiety state, unspecified Screening for depression Other decreased white blood cell (WBC) count Other migraine without status 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, not 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 documented in this encounter [facility] note* Diagnosis Panic attacks- Primary Panic disorder without agoraphobia documented in this encounter [facility] note* Diagnosis Persistent postural-perceptual dizziness- Primary Migraine without aura and without status migrainosus, not intractable Migraine without aura, without mention of intractable migraine without mention of status migrainosus documented in this encounter [facility] note* Diagnosis Migraine without aura and without status migrainosus, not intractable- Primary Migraine without aura, without mention of intractable migraine without mention of status migrainosus Persistent postural-perceptual dizziness Vestibular migraine [facility] No data available for this section [facility] Progress note No data available for this section [facility] Reason for referral (narrative)* Diagnostic Procedure Only (Routine) - New Request Specialty Diagnoses / Procedures Referred By Carson garcia Referred To Contact [facility] IM[facility] Diagnoses Encounter for screening mammogram for breast cancer Procedures MARIO SCREENING W KIRILL SCREENING DIGITAL BREAST TOMOSYNTHESIS BI SCREENING MAMMOGRAPHY BI 2-VIEW BREAST INC Carol Link MD [address] [place] [address] [facility] [address] [place] [address] Referral ID Status Reason Start Date Expiration Date Visits Requested Visits Authorized [id number] New Request Auto-Generat ed Referral 10/09/[address] [facility]ative)No reason for referral information availableWCenterville Work Phone: Advance Directives Documents on File Type Date Recorded Patient Enrichment Director Expl anation Advance Directive(s) 01/30/2022 3:20 PM Documents on File Type Date Recorded Patient Enrichment Director Expl anation Advance Directive(s) 01/30/2022 3:20 PM Advance Directive Response Recorded Date/ Time Living Will No September 10 12:04pm Power of Local Company Refrigerated Truck Driver No September 10, 2022 12:04pm Advance Directive Response Recorded Date/ Time Do you have a Healthcare Power of Local Company Refrigerated Truck Driver? No September 08, 2025 7:04am Reason for Referral Specialty Diagnoses / Procedures Referred By Contac t Referred To Contact Diagnoses Abnormal weight gain Nutritional counseling Procedures EATING WELL FOR [facility] OFFICE/OUTPATIENT NEW HIGH MDM 60 MINUTES Jossie Lew MD [address] [place] [address] Referral ID Status Reason Start Date Expiration Date Visits Requested Visits Authorized [id number] Pending Review PCP Requested Referral 12/16/2024 12/16/2025 1 1 Specialty Diagnoses / Procedures Referred By Contac t Referred To Contact Diagnoses Abnormal weight gain Procedures ENDOCRINE MEDICAL WEIGHT MANAGEMENT OFFICE/OUTPATIENT NEW HIGH MDM 60 MINUTES Ashlee Munoz MD [address] [place] [address] Referral ID Status Reason Start Date Expiration Date Visits Requested Visits Authorized [id number] Authorized PCP Requested Referral 12/02/2024 12/02/2025 1 1 Specialty Diagnoses / Procedures Referred By Contac t Referred To Contact Nutrition Diagnoses Abnormal weight gain Procedures CONSULT TO NUTRITION THERAPY MEDICAL NUTRITION ASSMT&IVNTJ INDIV EACH 15 [place] Ashlee Munoz MD [address] [place] [address] Referral ID Status Reason Start Date Expiration Date Visits Requested Visits Authorized [id number] Authorized PCP Requested Referral 12/02/2024 12/02/2025 1 4 Specialty Diagnoses / Procedures Referred By Contac t Referred To Contact [facility] IMAGING Diagnoses Vertigo Migraine without status migrainosus, not intractable, unspecified migraine type Menstrual migraine without status migrainosus, not intractable Spinal stenosis of cervical region Procedures MRI CERVICAL SPINE WO IVCON MRI SPINAL CANAL CERVICAL W/O CONTRAST MATRL Frandy Smith Jr., MD [address] [facility] [address] [place] [address] Mr Imaging Referral ID Status Reason Start Date Expiration Date Visits Requested Visits Authorized [id number] Pending Review Auto-Generat ed Referral 07/30/2022 08/29/2023 1 1 Specialty Diagnoses / Procedures Referred By Contac t Referred To Contact MR IMAGING Diagnoses Vertigo Migraine without status migrainosus, not intractable, unspecified migraine type Menstrual migraine without status migrainosus, not intractable Cervicalgia Procedures MRI BRAIN WO/W IVCON MRI BRAIN BRAIN STEM W/O W/CONTRAST MATERIAL Frandy Smith Jr., MD [address] [facility] [address] [place] [address] Mr Imaging Referral ID Status Reason Start Date Expiration Date Visits Requested Visits Authorized [id number] Pending Review Auto-Generat ed Referral 07/30/2022 08/29/2023 1 1 Specialty Diagnoses / Procedures Referred By Contac t Referred To Contact Neurology Diagnoses Hx of migraines Dizziness Nausea Procedures CONSULT TO NEUROLOGY OFFICE/OUTPATIENT [facility] 60-74 MINUTES Jacy Newman, KEYBOARDING CLERK.POT RUNNER [address] [place] [address] Referral ID Status Reason Start Date Expiration Date Visits Requested Visits Authorized [id number] Authorized PCP Requested Referral 05/07/2022 05/07/2023 1 1 Chief Complaint and Reason for Visit Chief Complaint SCREENING Chief Complaint Admit Date SCREENING August 09, 2025 7:09am ABN MARIO August 13, 2025 9:27am Chief Complaint Admit Date SCREENING August 09, 2025 7:09am ABN MARIO August 13, 2025 9:27am GENERAL ILLNESS September 08, 2025 7 :53am Family History Relationship Condition Age at Onset Recorded Date/T [...] or prosecute any alcohol or drug abuse patient.[facility]In the event this information is protected by the Federal Confidentiality of Alcohol and Drug Abuse Patient Records regulations: The Federal rules restrict any use of the information to criminally investigate or prosecute any alcohol or drug abuse patient.[facility] HospitalIn the event this information is protected by the Federal Confidentiality of Alcohol and Drug Abuse Patient Records regulations: The Federal rules restrict any use of the information to criminally investigate or prosecute any alcohol or drug abuse patient.[facility]In the event this information is protected by the Federal Confidentiality of Alcohol and Drug Abuse Patient Records regulations: The Federal rules restrict any use of the information to criminally investigate or prosecute any alcohol or drug abuse patient.[facility] HospitalIn the event this information is protected by the Federal Confidentiality of Alcohol and Drug Abuse Patient Records regulations: The Federal rules restrict any use of the information to criminally investigate or prosecute any alcohol or drug abuse patient.[facility] HospitalIn the event this information is protected by the Federal Confidentiality of Alcohol and Drug Abuse Patient Records regulations: The Federal rules restrict any use of the information to criminally investigate or prosecute any alcohol or drug abuse patient.[facility] HospitalIn the event this information is protected by the Federal Confidentiality of Alcohol and Drug Abuse Patient Records regulations: The Federal rules restrict any use of the information to criminally investigate or prosecute any alcohol or drug abuse patient.[facility] HospitalIn the event this information is protected by the Federal Confidentiality of Alcohol and Drug Abuse Patient Records regulations: The Federal rules restrict any use of the information to criminally investigate or prosecute any alcohol or drug abuse patient.[facility]In the event this information is protected by the Federal Confidentiality of Alcohol and Drug Abuse Patient Records regulations: The Federal rules restrict any use of the information to criminally investigate or prosecute any alcohol or drug abuse patient.[facility]In the event this information is protected by the Federal Confidentiality of Alcohol and Drug Abuse Patient Records regulations: The Federal rules restrict any use of the information to criminally investigate or prosecute any alcohol or drug abuse patient.[facility]In the event this information is protected by the Federal Confidentiality of Alcohol and Drug Abuse Patient Records regulations: The Federal rules restrict any use of the information to criminally investigate or prosecute any alcohol or drug abuse patient.[facility]In the event this information is protected by the Federal Confidentiality of Alcohol and Drug Abuse Patient Records regulations: The Federal rules restrict any use of the information to criminally investigate or prosecute any alcohol or drug abuse patient.[facility]In the event this information is protected by the Federal Confidentiality of Alcohol and Drug Abuse Patient Records regulations: The Federal rules restrict any use of the information to criminally investigate or prosecute any alcohol or drug abuse patient.[facility]In the event this information is protected by the Federal Confidentiality of Alcohol and Drug Abuse Patient Records regulations: The Federal rules restrict any use of the information to criminally investigate or prosecute any alcohol or drug abuse patient.[facility]In the event this information is protected by the Federal Confidentiality of Alcohol and Drug Abuse Patient Records regulations: The Federal rules restrict any use of the information to criminally investigate or prosecute any alcohol or drug abuse patient.[facility]In the event this information is protected by the Federal Confidentiality of Alcohol and Drug Abuse Patient Records regulations: The Federal rules restrict any use of the information to criminally investigate or prosecute any alcohol or drug abuse patient.[facility] HospitalIn the event this information is protected by the Federal Confidentiality of Alcohol and Drug Abuse Patient Records regulations: The Federal rules restrict any use of the information to criminally investigate or prosecute any alcohol or drug abuse patient.[facility]In the event this information is protected by the Federal Confidentiality of Alcohol and Drug Abuse Patient Records regulations: The Federal rules restrict any use of the information to criminally investigate or prosecute any alcohol or drug abuse patient.[facility] HospitalIn the event this information is protected by the Federal Confidentiality of Alcohol and Drug Abuse Patient Records regulations: The Federal rules restrict any use of the information to criminally investigate or prosecute any alcohol or drug abuse patient.[facility] HospitalIn the event this information is protected by the Federal Confidentiality of Alcohol and Drug Abuse Patient Records regulations: The Federal rules restrict any use of the information to criminally investigate or prosecute any alcohol or drug abuse patient.[facility] HospitalIn the event this information is protected by the Federal Confidentiality of Alcohol and Drug Abuse Patient Records regulations: The Federal rules restrict any use of the information to criminally investigate or prosecute any alcohol or drug abuse patient.[facility] HospitalIn the event this information is protected by the Federal Confidentiality of Alcohol and Drug Abuse Patient Records regulations: The Federal rules restrict any use of the information to criminally investigate or prosecute any alcohol or drug abuse patient.[facility] HospitalIn the event this information is protected by the Federal Confidentiality of Alcohol and Drug Abuse Patient Records regulations: The Federal rules restrict any use of the information to criminally investigate or prosecute any alcohol or drug abuse patient.[facility]In the event this information is protected by the Federal Confidentiality of Alcohol and Drug Abuse Patient Records regulations: The Federal rules restrict any use of the information to criminally investigate or prosecute any alcohol or drug abuse patient.[facility]In the event this information is protected by the Federal Confidentiality of Alcohol and Drug Abuse Patient Records regulations: The Federal rules restrict any use of the information to criminally investigate or prosecute any alcohol or drug abuse patient.[facility]In the event this information is protected by the Federal Confidentiality of Alcohol and Drug Abuse Patient Records regulations: The Federal rules restrict any use of the information to criminally investigate or prosecute any alcohol or drug abuse patient.[facility]In the event this information is protected by the Federal Confidentiality of Alcohol and Drug Abuse Patient Records regulations: The Federal rules restrict any use of the information to criminally investigate or prosecute any alcohol or drug abuse patient.[facility]In the event this information is protected by the Federal Confidentiality of Alcohol and Drug Abuse Patient Records regulations: The Federal rules restrict any use of the information to criminally investigate or prosecute any alcohol or drug abuse patient.[facility]In the event this information is protected by the Federal Confidentiality of Alcohol and Drug Abuse Patient Records regulations: The Federal rules restrict any use of the information to criminally investigate or prosecute any alcohol or drug abuse patient.[facility]In the event this information is protected by the Federal Confidentiality of Alcohol and Drug Abuse Patient Records regulations: The Federal rules restrict any use of the information to criminally investigate or prosecute any alcohol or drug abuse patient.[facility]In the event this information is protected by the Federal Confidentiality of Alcohol and Drug Abuse Patient Records regulations: The Federal rules restrict any use of the information to criminally investigate or prosecute any alcohol or drug abuse patient.[facility]In the event this information is protected by the Federal Confidentiality of Alcohol and Drug Abuse Patient Records regulations: The Federal rules restrict any use of the information to criminally investigate or prosecute any alcohol or drug abuse patient.[facility]In the event this information is protected by the Federal Confidentiality of Alcohol and Drug Abuse Patient Records regulations: The Federal rules restrict any use of the information to criminally investigate or prosecute any alcohol or drug abuse patient.[facility]In the event this information is protected by the Federal Confidentiality of Alcohol and Drug Abuse Patient Records regulations: The Federal rules restrict any use of the information to criminally investigate or prosecute any alcohol or drug abuse patient.[facility]In the event this information is protected by the Federal Confidentiality of Alcohol and Drug Abuse Patient Records regulations: The Federal rules restrict any use of the information to criminally investigate or prosecute any alcohol or drug abuse patient.[facility]In the event this information is protected by the Federal Confidentiality of Alcohol and Drug Abuse Patient Records regulations: The Federal rules restrict any use of the information to criminally investigate or prosecute any alcohol or drug abuse patient.[facility]In the event this information is protected by the Federal Confidentiality of Alcohol and Drug Abuse Patient Records regulations: The Federal rules restrict any use of the information to criminally investigate or prosecute any alcohol or drug abuse patient.[facility]In the event this information is protected by the Federal Confidentiality of Alcohol and Drug Abuse Patient Records regulations: The Federal rules restrict any use of the information to criminally investigate or prosecute any alcohol or drug abuse patient.[facility]In the event this information is protected by the Federal Confidentiality of Alcohol and Drug Abuse Patient Records regulations: The Federal rules restrict any use of the information to criminally investigate or prosecute any alcohol or drug abuse patient.[facility]In the event this information is protected by the Federal Confidentiality of Alcohol and Drug Abuse Patient Records regulations: The Federal rules restrict any use of the information to criminally investigate or prosecute any alcohol or drug abuse patient.[facility]In the event this information is protected by the Federal Confidentiality of Alcohol and Drug Abuse Patient Records regulations: The Federal rules restrict any use of the information to criminally investigate or prosecute any alcohol or drug abuse patient.[facility]In the event this information is protected by the Federal Confidentiality of Alcohol and Drug Abuse Patient Records regulations: The Federal rules restrict any use of the information to criminally investigate or prosecute any alcohol or drug abuse patient.[facility] HospitalIn the event this information is protected by the Federal Confidentiality of Alcohol and Drug Abuse Patient Records regulations: The Federal rules restrict any use of the information to criminally investigate or prosecute any alcohol or drug abuse patient.[facility]In the event this information is protected by the Federal Confidentiality of Alcohol and Drug Abuse Patient Records regulations: The Federal rules restrict any use of the information to criminally investigate or prosecute any alcohol or drug abuse patient.[facility]In the event this information is protected by the Federal Confidentiality of Alcohol and Drug Abuse Patient Records regulations: The Federal rules restrict any use of the information to criminally investigate or prosecute any alcohol or drug abuse patient.[facility]In the event this information is protected by the Federal Confidentiality of Alcohol and Drug Abuse Patient Records regulations: The Federal rules restrict any use of the information to criminally investigate or prosecute any alcohol or drug abuse patient.[facility]In the event this information is protected by the Federal Confidentiality of Alcohol and Drug Abuse Patient Records regulations: The Federal rules restrict any use of the information to criminally investigate or prosecute any alcohol or drug abuse patient.[facility]In the event this information is protected by the Federal Confidentiality of Alcohol and Drug Abuse Patient Records regulations: The Federal rules restrict any use of the information to criminally investigate or prosecute any alcohol or drug abuse patient.[facility]In the event this information is protected by the Federal Confidentiality of Alcohol and Drug Abuse Patient Records regulations: The Federal rules restrict any use of the information to criminally investigate or prosecute any alcohol or drug abuse patient.[facility]In the event this information is protected by the Federal Confidentiality of Alcohol and Drug Abuse Patient Records regulations: The Federal rules restrict any use of the information to criminally investigate or prosecute any alcohol or drug abuse patient.[facility]In the event this information is protected by the Federal Confidentiality of Alcohol and Drug Abuse Patient Records regulations: The Federal rules restrict any use of the information to criminally investigate or prosecute any alcohol or drug abuse patient.[facility]In the event this information is protected by the Federal Confidentiality of Alcohol and Drug Abuse Patient Records regulations: The Federal rules restrict any use of the information to criminally investigate or prosecute any alcohol or drug abuse patient.[facility]In the event this information is protected by the Federal Confidentiality of Alcohol and Drug Abuse Patient Records regulations: The Federal rules restrict any use of the information to criminally investigate or prosecute any alcohol or drug abuse patient.[facility]In the event this information is protected by the Federal Confidentiality of Alcohol and Drug Abuse Patient Records regulations: The Federal rules restrict any use of the information to criminally investigate or prosecute any alcohol or drug abuse patient.[facility]In the event this information is protected by the Federal Confidentiality of Alcohol and Drug Abuse Patient Records regulations: The Federal rules restrict any use of the information to criminally investigate or prosecute any alcohol or drug abuse patient.[facility]In the event this information is protected by the Federal Confidentiality of Alcohol and Drug Abuse Patient Records regulations: The Federal rules restrict any use of the information to criminally investigate or prosecute any alcohol or drug abuse patient.[facility]In the event this information is protected by the Federal Confidentiality of Alcohol and Drug Abuse Patient Records regulations: The Federal rules restrict any use of the information to criminally investigate or prosecute any alcohol or drug abuse patient.[facility]In the event this information is protected by the Federal Confidentiality of Alcohol and Drug Abuse Patient Records regulations: The Federal rules restrict any use of the information to criminally investigate or prosecute any alcohol or drug abuse patient.[facility]In the event this information is protected by the Federal Confidentiality of Alcohol and Drug Abuse Patient Records regulations: The Federal rules restrict any use of the information to criminally investigate or prosecute any alcohol or drug abuse patient.[facility]In the event this information is protected by the Federal Confidentiality of Alcohol and Drug Abuse Patient Records regulations: The Federal rules restrict any use of the information to criminally investigate or prosecute any alcohol or drug abuse patient.[facility]In the event this information is protected by the Federal Confidentiality of Alcohol and Drug Abuse Patient Records regulations: The Federal rules restrict any use of the information to criminally investigate or prosecute any alcohol or drug abuse patient.[facility]In the event this information is protected by the Federal Confidentiality of Alcohol and Drug Abuse Patient Records regulations: The Federal rules restrict any use of the information to criminally investigate or prosecute any alcohol or drug abuse patient.[facility] the event this information is protected by the Federal Confidentiality of Alcohol and Drug Abuse Patient Records regulations: The Federal rules restrict any use of the information to criminally investigate or prosecute any alcohol or drug abuse patient.[facility] HospitalIn the event this information is protected by the Federal Confidentiality of Alcohol and Drug Abuse Patient Records regulations: The Federal rules restrict any use of the information to criminally investigate or prosecute any alcohol or drug abuse patient.[facility] the event this information is protected by the Federal Confidentiality of Alcohol and Drug Abuse Patient Records regulations: The Federal rules restrict any use of the information to criminally investigate or prosecute any alcohol or drug abuse patient.[facility] HospitalIn the event this information is protected by the Federal Confidentiality of Alcohol and Drug Abuse Patient Records regulations: The Federal rules restrict any use of the information to criminally investigate or prosecute any alcohol or drug abuse patient.[facility] HospitalIn the event this information is protected by the Federal Confidentiality of Alcohol and Drug Abuse Patient Records regulations: The Federal rules restrict any use of the information to criminally investigate or prosecute any alcohol or drug abuse patient.[facility] Hospital[facility] the event this information is protected by the Federal Confidentiality of Alcohol and Drug Abuse Patient Records regulations: The Federal rules restrict any use of the information to criminally investigate or prosecute any alcohol or drug abuse patient.[facility] Reason for Visit (unrecogniz ed section and content) Specialty Diagnoses / Procedures Referred By Contac t Referred To Contact ANESTHESIOLOGY Diagnoses PRE OP Procedures COMPLETE PACC Dena Khanna MD [address] [place] [address] , [facility] [address] [place] [address] Referral ID Status Reason Start Date Expiration Date V isits Requested Visits Authorized [id number] Pending Review 02/16/2022 05/17/2022 1 1 Reason Onset Date Comments Pre-Op Teaching 02/13/2022 Reason Comments Urinary Incontinence Specialty Diagnoses / Procedures Referred By Contac t Referred To Contact [facility] Diagnoses TOM (stress urinary incontinence, female) Procedures URODYNAMICS WHI COMPLX CYSTOMETRO W/VOID PRESS&URETHRAL PROFILE Dena Khanna MD [id number] [place] [address] Referral ID Status Reason Start Date Expiration Date V isits Requested Visits Authorized [id number] Closed Auto-Generate d Referral 12/08/2021 12/08/2022 1 [...] NEW RS PT VESTIBULAR VERTIGO Jovi Kiser, ZURDO.DELIVERY DIRECTOR [address] [id number] Galilea Marquez, PT Referral ID Status Reason Start Date Expiration Date V isits Requested Visits Authorized [id number] Authorized 11/18/2021 11/17/2022 99 99 Reason Comments Follow Up Dizziness Headaches Reason Comments Follow Up 3 month F/U for head aches and vertigo Reason Comments Sore Throat Left ear pain x 3 da ys Specialty Diagnoses / Procedures Referred By Yoannaac t Referred To Contact MR IMAGING Diagnoses Vertigo Migraine without status migrainosus, not intractable, unspecified migraine type Menstrual migraine without status migrainosus, not intractable Cervicalgia Procedures MRI BRAIN WO/W IVCON MRI BRAIN BRAIN STEM W/O W/CONTRAST MATERIAL Frandy Smith Jr., MD [address] [facility] [address] [place] [address] [place] [address] Referral ID Status Reason Start Date Expiration Date V isits Requested Visits Authorized [id number] Closed Auto-Generate d Referral 07/30/2022 11/04/2022 1 1 Specialty Diagnoses / Procedures Referred By Yoannaac t Referred To Contact MR IMAGING Diagnoses Vertigo Migraine without status migrainosus, not intractable, unspecified migraine type Menstrual migraine without status migrainosus, not intractable Spinal stenosis of cervical region Procedures MRI CERVICAL SPINE WO IVCON MRI SPINAL CANAL CERVICAL W/O CONTRAST MATRL Frandy Smith Jr., MD [address] [facility] [address] [place] [address] [place] [address] Referral ID Status Reason Start Date Expiration Date V isits Requested Visits Authorized [id number] Closed Auto-Generate d Referral 07/30/2022 11/04/2022 1 [...] Care Teams (unrecognized sec tion and content) Manager Of Pharmacy Relationship Specialty Start Date End Date Carol Lebron MD [address] [place] [address] PCP - General Internal Medicine 09/27/20 Manager Of Pharmacy Relationship Specialty Start Date End Date Carol Lebron MD [address] [place] [address] PCP - General Internal Medicine 09/27/20 Manager Of Pharmacy Relationship Specialty Start Date End Date Carol Lebron MD [address] [place] [address] PCP - General Internal Medicine 09/27/20 Manager Of Pharmacy Relationship Specialty Start Date End Date Carol Lebron MD [address] [place] [address] PCP - General Internal Medicine 09/27/20 Manager Of Pharmacy Relationship Specialty Start Date End Date Carol Lebron MD [address] [place] [address] PCP - General Internal Medicine 09/27/20 Manager Of Pharmacy Relationship Specialty Start Date End Date Carol Lebron MD [address] [place] [address] PCP - General Internal Medicine 09/27/20 Manager Of Pharmacy Relationship Specialty Start Date End Date Carol Lebron MD [address] [place] [address] PCP - General Internal Medicine 09/27/20 Manager Of Pharmacy Relationship Specialty Start Date End Date Carol Lebron MD [address] [place] [address] PCP - General Internal Medicine 09/27/20 Manager Of Pharmacy Relationship Specialty Start Date End Date Carol Lebron MD [address] [place] [address] PCP - General Internal Medicine 09/27/20 Manager Of Pharmacy Relationship Specialty Start Date End Date Carol Lebron MD [address] [place] [address] PCP - General Internal Medicine 09/27/20 Manager Of Pharmacy Relationship Specialty Start Date End Date Carol Lebron MD [address] [place] [address] PCP - General Internal Medicine 09/27/20 Manager Of Pharmacy Relationship Specialty Start Date End Date Carol Lebron MD [address] [place] [address] PCP - General Internal Medicine 09/27/20 Manager Of Pharmacy Relationship Specialty Start Date End Date Carol Lebron MD [address] [place] [address] PCP - General Internal Medicine 09/27/20 Manager Of Pharmacy Relationship Specialty Start Date End Date Carol Lebron MD [address] [place] [address] PCP - General Internal Medicine 09/27/20 Manager Of Pharmacy Relationship Specialty Start Date End Date Carol Lebron MD [address] [place] [address] PCP - General Internal Medicine 09/27/20 Manager Of Pharmacy Relationship Specialty Start Date End Date Carol Lebron MD [address] [place] [address] PCP - General Internal Medicine 09/27/20 Manager Of Pharmacy Relationship Specialty Start Date End Date Carol Lebron MD [address] [place] [address] PCP - General Internal Medicine 09/27/20 Team Status: Active Member Role Status Dates Prosper Cobos JAVA FLEX DEVELOPER, JAVA FLEX DEVELOPER-C Family Provider Activ e Dr. Carol Lebron MD Primary Care Provider Active Team Status: Inactive Member Role Status Dates Dr. Carol Lebron MD Primary Care Provider Active Dr. Ann-Marie Brooks MD Attending Provider, Karyn velazquez Active Manager Of Pharmacy Relationship Specialty Start Date End Date Carol Lebron MD [address] [facility] [place] [place] [address] PCP - General Internal Medicine 09/27/20 Manager Of Pharmacy Relationship Specialty Start Date End Date Carol Lebron MD [address] [facility] [place] [place] [address] PCP - General Internal Medicine 09/27/20 Manager Of Pharmacy Relationship Specialty Start Date End Date Carol Lebron MD [address] [facility] [place] [place] [address] PCP - General Internal Medicine 09/27/20 Manager Of Pharmacy Relationship Specialty Start Date End Date Carol Lebron MD [address] [facility] [place] [place] [address] PCP - General Internal Medicine 09/27/20 Manager Of Pharmacy Relationship Specialty Start Date End Date Carol Lebron MD [address] [facility] [place] [address] PCP - General Internal Medicine 09/27/20 Manager Of Pharmacy Relationship Specialty Start Date End Date Carol Lebron MD [address] [facility] [place] [place] [address] PCP - General Internal Medicine 09/27/20 Manager Of Pharmacy Relationship Specialty Start Date End Date Carol Lebron MD [address] [facility] [place] [address] PCP - General Internal Medicine 09/27/20 Manager Of Pharmacy Relationship Specialty Start Date End Date Craol Lebron MD [address] [place] [address] PCP - General Internal Medicine 09/27/20 Manager Of Pharmacy Relationship Specialty Start Date End Date Carol Lebron MD [address] [place] [address] PCP - General Internal Medicine 09/27/20 Manager Of Pharmacy Relationship Specialty Start Date End Date Carol Lebron MD [address] [place] [address] PCP - General Internal Medicine 09/27/20 Rosanne Sykes PA-C [address] [place], [place] [id number] [phone] Second Time Worker Family Medicine 10/25/24 Silvina Presley, KEYBOARDING CLERK.DELIVERY DIRECTOR [address] [place] [address] Second Time Worker Internal Medicine 10/25/24 Katherine Tirado PA-C [address] [place] [address] Second Time Worker Family Medicine 10/25/24 Manager Of Pharmacy Relationship Specialty Start Date End Date Carol Lebron MD [address] [place] [address] PCP - General Internal Medicine 09/27/20 Rosanne Sykes PA-C [address] [place] [address] Second Time Worker Family Medicine 10/25/24 Silvina Presley, KEYBOARDING CLERK.DELIVERY DIRECTOR [address] [place] [address] Second Time Worker Internal Medicine 10/25/24 Katherine Tirado PA-C [address] [place] [address] Second Time Worker Family Medicine 10/25/24 Manager Of Pharmacy Relationship Specialty Start Date End Date Carol Lebron MD [address] [place] [address] PCP - General Internal Medicine 09/27/20 Rosanne Sykes PA-C [address] [place] [address] Second Time Worker Family Medicine 10/25/24 Silvina Presley APRN.DELIVERY DIRECTOR [address] [place] [address] Second Time Worker Internal Medicine 10/25/24 Katherine Tirado PA-C [address] [place] [address] Second Time Worker Family Medicine 10/25/24 Manager Of Pharmacy Relationship Specialty Start Date End Date Carol Lebron MD [address] [place] [address] PCP - General Internal Medicine 09/27/20 Rosanne Sykes PA-C [address] [place] [address] Second Time Worker Family Medicine 10/25/24 Silvina Presley APRN.DELIVERY DIRECTOR [address] [place] [address] Second Time Worker Internal Medicine 10/25/24 Katherine Tirado PA-C [address] [place] [address] Second Time Worker Family [facility] 10/25/24 Manager Of Pharmacy Relationship Specialty Start Date End Date Carol Lebron MD [address] [place] [address] PCP - General Internal Medicine 09/27/20 Rosanne Sykes PA-C [address] [place], [place] [id number] [phone] Second Time Worker Family [facility] 10/25/24 Silvina Presley APRN.DELIVERY DIRECTOR [address] [place] [address] Second Time Worker Internal Medicine 10/25/24 Katherine Tirado PA-C [address] [place] [address] [facility] 10/25/24 Manager Of Pharmacy Relationship Specialty Start Date End Date Carol Lebron MD [address] [place] [address] PCP - General Internal Medicine 09/27/20 Rosanne Sykes PA-C [address] [place] [address] Second Time Worker Family [facility] 10/25/24 Silvina Presley APRN.DELIVERY DIRECTOR [address] [place] [address] Second Time Worker Internal Medicine 10/25/24 Katherine Tirado PA-C [address] [place] [address] Second Time Worker Family [facility] 10/25/24 Manager Of Pharmacy Relationship Specialty Start Date End Date Carol Lebron MD [address] [place] [address] PCP - General Internal Medicine 09/27/20 Rosanne Sykes PA-C [address] [place] [address] Second Time Worker Family Medicine 10/25/24 Silvina Presley APRN.DELIVERY DIRECTOR [address] [place] [address] Second Time Worker Internal Medicine 10/25/24 Katherine Tirado PA-C [address] [place] [address] Second Time Worker Family Medicine 10/25/24 Manager Of Pharmacy Relationship Specialty Start Date End Date Carol Lebron MD [address] [place] [address] PCP - General Internal Medicine 09/27/20 Rosanne Sykes PA-C [address] [place] [address] Second Time Worker Family Medicine 10/25/24 Silvina Presley, ZURDO.DELIVERY DIRECTOR [address] [place] [address] Second Time Worker Internal Medicine 10/25/24 Katherine Tirado PA-C [address] [place] [address] Second Time Worker Family [facility] 10/25/24 Manager Of Pharmacy Relationship Specialty Start Date End Date Carol Lebron MD [address] [facility] [place] [place] [address] PCP - General Internal Medicine 09/27/20 Rosanne Sykes PA-C [address] [place] [address] Second Time Worker Family Medicine 10/25/24 Silvina Presley APRN.DELIVERY DIRECTOR [address] [place] [address] [facility] Internal Medicine 10/25/24 Katherine Tirado PA-C [address] [place] [address] [facility] 10/25/24 Manager Of Pharmacy Relationship Specialty Start Date End Date Carol Lebron MD [address] [place] [address] PCP - General Internal Medicine 09/27/20 Silvina Presley APRN.DELIVERY DIRECTOR [address] [place] [address] Second Time Worker Internal Medicine 10/25/24 Manager Of Pharmacy Relationship Specialty Start Date End Date Carol Lebron MD [address] [place] [address] PCP - General Internal Medicine 09/27/20 Silvina Presley APRN.DELIVERY DIRECTOR [address] [facility] [place] [address] Second Time Worker Internal Medicine 10/25/24 Manager Of Pharmacy Relationship Specialty Start Date End Date Carol Lebron MD [address] [place] [address] PCP - General Internal Medicine 09/27/20 Silvina Presley APRN.DELIVERY DIRECTOR [address] [place] [address] Second Time Worker Internal Medicine 10/25/24 Manager Of Pharmacy Relationship Specialty Start Date End Date Carol Lebron MD [address] [place] [address] PCP - General Internal Medicine 09/27/20 Silvina Presley APRN.DELIVERY DIRECTOR [address] [place] [address] Second Time Worker Internal Medicine 10/25/24 Manager Of Pharmacy Relationship Specialty Start Date End Date Carol Lebron MD [address] [place] [address] PCP - General Internal Medicine 09/27/20 Silvina Presley APRN.DELIVERY DIRECTOR [address] [place] [address] Second Time Worker Internal Medicine 10/25/24 Manager Of Pharmacy Relationship Specialty Start Date End Date Carol Lebron MD [address] [place] [address] PCP - General Internal Medicine 09/27/20 Silvina Presley APRN.DELIVERY DIRECTOR [address] [place] [address] Second Time Worker Internal Medicine 10/25/24 Manager Of Pharmacy Relationship Specialty Start Date End Date Carol Lebron MD [address] [place] [address] PCP - General Internal Medicine 09/27/20 Silvina Presley APRN.DELIVERY DIRECTOR [address] [place] [address] Second Time Worker Internal Medicine 10/25/24 Manager Of Pharmacy Relationship Specialty Start Date End Date Carol Lebron MD [address] [place] [address] PCP - General Internal Medicine 09/27/20 Silvina Presley APRN.DELIVERY DIRECTOR [address] [place] [address] Second Time Worker Internal Medicine 10/25/24 Manager Of Pharmacy Relationship Specialty Start Date End Date Carol Lebron MD [address] [place] [address] PCP - General Internal Medicine 09/27/20 Silvina Prelsey APRN.DELIVERY DIRECTOR [address] [place] [address] Second Time Worker Internal Medicine 10/25/24 Team Status: Active Member Role/Relationship Status Dates Dr. Carol Lebron MD Primary care physician Active Team Status: Inactive Member Role/Relationship Status Dates Dr. Carol Lebron MD Primary care physician Active Start: August 09, 2025 End: August 09, 2025 Dr. Carol Lebron MD Attending physician Active Start: August 09, 2025 End: August 09, 2025 Dr. Carol Lebron MD Referring Provider Active Start: August 09, 2025 End: August 09, 2025 Team Status: Active Member Role/Relationship Status Dates Dr. Carol Lebron MD Primary care physician Active Start: August 13, 2025 Dr. Carol Lebron MD Attending physician Active Start: August 13, 2025 Dr. Carol Lebron MD Referring Provider Active Start: August 13, 2025 Team Status: Inactive Member Role/Relationship Status Dates Dr. Carol Lebron MD Primary care physician Active Start: August 13, 2025 End: August 13, 2025 Dr. Carol Lebron MD Attending physician Active Start: August 13, 2025 End: August 13, 2025 Dr. Carol Lebron MD Referring Provider Active Start: August 13, 2025 End: August 13, 2025 Team Status: Inactive Member Role/Relationship Status Dates Dr. Carol Lebron MD Primary care physician Active Start: September 08, 2025 End: September 08, 2025 Dr. Giuliaon Cristobal MD Attending physician Active St art: September 08, 2025 End: September 08, 2025 Dr. Giuliano Cristobal MD Emergency Department Physician Acti ve Start: September 08, 2025 End: September 08, 2025 Goals (unrecognized section and content) Goals may be documented in a n alternate section Care Team (unrecognized sect ion and content) Care Team Personnel Name: PROSPER COBOS APRN - DELIVERY DIRECTOR Position: P4 Advanced Practice Nurse Med Service: Employed Provider Member Role: Primary Care Physician Address: Address: [address] [place], [place] [address] Care Team Related Persons Name: PRAVEEN REED Address: Home [address] [place], [place] [id number] INFORMATION SOURCE (unrecogn ized section and content) DATE CREATED AUTHOR 09/21/2022 [facility] DATE CREATED AUTHOR AUTHOR'S ORGANIZ ATION 04/07/2024 [facility] [place] [facility] DATE CREATED AUTHOR AUTHOR'S ORGANIZ ATION 09/22/2025 [facility] DATE CREATED AUTHOR AUTHOR'S ORGANIZ ATION 09/23/2025 [facility] DATE CREATED AUTHOR AUTHOR'S ORGANIZ ATION 09/24/2025 [facility] PERTAINING TO PATIENTS WHO ARE [...] BE BASED ON THE PRIMARY CLINICAL RECORDS. [facility] [employer] [facility]. provides no warranty or guarantee of the accuracy or completeness of information in this document.
== END | disposition home or self-care (01) ==
LOC: LAB 09:43
PROVIDERS: Student in an Organized Health Care Education/Training Program; PCP Internal Medicine; Referring Provider Internal Medicine Gastroenterology; Visit Provider Internal Medicine Gastroenterology
DX: R10.9 Unspecified abdominal pain (principal)
CPT/HCPCS: 83993

== ENCOUNTER 2025-10-18 10:23 | Day surgery (SDC) | payer OTHER, SELFPAY ==
[2025-10-18] VITALS (8 sets, daily range): BP systolic 108–135; BP diastolic 68–80; PULSE 72–86; RESP 16; TEMP 36.2–37.1; O2SAT 99–100; BMI 26.1
[2025-10-18] MEDS: Lactated Ringers 1,000 ML 15 ML IV (10:41)
--- NOTE | 2025-10-18 11:27 | PCM.HP.STD ---
HPI - General General Date of Admission: 10/18/25 Date of Service: 10/18/25 Chief Complaint: colitis and abdominal pain HPI Narrative KATE REED, is a 50 F who presents [Chief Complaint: Colitis Colonoscopy 09/14/2022 Non-thrombosed external hemorrhoids and internal hemorrhoids that prolapse with straining, but require manual replacement into the anal canal (Grade III) found on digital rectal exam. Left lateral external hemorrhoidal tag - Tortuous colon. - The examination was otherwise normal. - No specimens collected. [facility] ED 09/08/2025 due to nausea vomiting and diarrhea. Recent use of antibiotics. CBC largely unremarkable. Unable to produce a stool sample for C. difficile. Stool 09/20/2025 positive lactoferrin, negative O&P, enteric path negative, C. difficile negative [facility] ED 10/03/2025 due to abdominal pain and bloody stools. CT demonstrating diffuse colonic wall thickening which appears more than underdistention therefore suspicious for colitis. OV 10/05/25 patient here today due to colitis and intermittent abdominal symptoms. Patient treated for UTI in July with Bactrim and Keflex and following this treatment she developed nausea vomiting and abdominal pain. Since then she has had intermittent symptoms. Most notably on 10/03 she started to have severe lower abdominal pain and bright red blood which filled the toilet bowl. At this point she went to the emergency department and was diagnosed with colitis and cystitis via CT abdomen pelvis. She was started on Cipro and Flagyl and has only had 1 dose. Over the past month she endorses a small amount of bright red blood per rectum with each bowel movement, unintentional weight loss, lack of appetite and daily nausea. At baseline she has constipation alternating with loose stools. Of note she was on a GLP-1 over the summer but has since discontinued. Calprotectin, Stool Today R10.9 - Unspecified abdominal pain ] [facility] Medical History Left knee pain Wears glasses Alcohol use Migraine headache History of IBS Non-smoker History of echocardiogram History of stress test Encounter for screening colonoscopy Internal hemorrhoid Anxiety Home Medications Medication Instructions Recorded Last Taken Type cholecalciferol (vitamin D3) 50 50 mcg PO DAILY 09/10/22 Unknown History mcg (2,000 unit) capsule (Vitamin D3) magnesium 200 mg tablet 200 mg PO DAILY 09/10/22 Unknown History Bifidobacterium infantis 10.5 mg 10.5 mg PO DAILY 10/05/25 Unknown History (10 million cell) chewable tablet (Align (B.infantis)) ciprofloxacin HCl 500 mg tablet 500 mg PO Q12H 10/05/25 Unknown History citalopram 20 mg tablet 20 mg PO QDAY 10/05/25 Unknown History gabapentin 300 mg capsule 300 mg PO QDAY 10/05/25 Unknown History metronidazole 500 mg tablet 500 mg PO Q8H 10/05/25 Unknown History norethindrone acetate 1 mg-ethinyl 1 tab PO QDAY 10/05/25 Unknown History estradiol 20 mcg tablet (Junel) ondansetron HCl 4 mg tablet 4 mg PO Q6H PRN nausea and vomiting 10/05/25 Unknown History pantoprazole 40 mg tablet,delayed 40 mg PO QDAY 10/05/25 Unknown History release vitamin B complex 1 tab PO DAILY 10/12/25 Unknown History Allergy/AdvReac Type Severity Reaction Status Date / Time honey Allergy Severe Swelling Verified 10/18/25 10:40 erythromycin base AdvReac Intermediate Other Verified 10/18/25 10:40 Family History Father High blood cholesterol Mother Skin cancer Hypoglycemia Aunt Colon cancer Grandfather Bowel obstruction Surgical History Hx of colonoscopy History of bladder suspension procedure History of laparoscopic cholecystectomy History of hemorrhoidectomy History of Social History household members: spouse Smoking Status: Never smoker alcohol intake: current substance use type: does not use ROS Constitutional Constitutional: Denies fatigue, fever(s), poor appetite, weight gain or weight loss Gastrointestinal Gastrointestinal: Denies belching, bloating, change in bowel habits, change in stool character, chewing difficulty, coffee ground emesis, constipation, cramping, diarrhea, dyspepsia, dysphagia, early satiety, excessive flatus, fecal incontinence, heartburn, hematemesis, hematochezia, hemorrhoids, loose stools, melena, nausea, odynophagia, rectal bleeding, tenesmus, vomiting or weight changes Vital Signs Vital Signs Vital Signs: 10/18/25 10:42 10/18/25 10:42 10/18/25 10:42 Temperature 98.8 F Temperature Source Temporal Pulse Rate 75 Respiratory Rate 16 Respiratory Pattern Normal Blood Pressure 135/80 H Blood Pressure Mean 98 Blood Pressure Source Monitor Blood Pressure Position Semi-Fowlers Blood Pressure Location Right Arm Baseline BP 135/80 Pulse Ox 100 Oxygen Delivery Method Room Air Weight Weight: 162 lb 0.636 oz Body Mass Index (BMI) 26.1 Physical Exam Const alert, oriented x3, no apparent distress and healthy appearing General Appearance: cooperative GI normal to inspection, nondistended, normoactive bowel sounds, soft to palpation, non-tender and non-distended Percussion: normal to percussion Rectal Exam: deferred Assessment & Plan Assessment/Plan (1) Nausea and vomiting: (2) Colitis: (3) Abdominal pain: PLAN: Assessment and Plan Assessment and Plan (1) Abdominal pain: Status: Acute (2) Colitis: Status: Acute (3) Nausea and vomiting: Status: Acute Plan: Kate is a 50-year-old female patient with past medical history of IBS, migraine headache and anxiety here today for evaluation. Over the past month patient has been having intermittent episodes of nausea, vomiting, blood in her stool and diarrhea which started after treatment with Keflex and Bactrim for UTI. She has presented to the ED for the symptoms on 2 occasions and has been diagnosed with colitis. CT also demonstrating possible cystitis. Stool testing for enteric pathogens, and C. difficile have been negative. Lactoferrin was positive. She was placed on Cipro and Flagyl and has only taken 1-2 doses of this so far. She will continue antibiotics and be scheduled for colonoscopy and EGD. I have also ordered calprotectin for quantifying the amount of inflammation in her colon at this time. Pending results will consider further workup and/or treatment. Patient was advised that she has any more significant bleeding she should contact her office or present back to the ED. - Calprotectin - Continue antibiotics - Colonoscopy - EGD - Consider further treatment and/or workup pending results - Follow-up after procedure Note: Portions of this note may have been selectively carried forward from previous documentation to ensure continuity and accuracy of the clinical record. All imported information has been reviewed and updated as necessary to reflect the current patient status, findings, and clinical decision-making for this encounter. [employer] speech recognition cost specialist software was used to create portions of this document. Sound alike and misspelled words, as well as other cost specialist errors may be contained in the documentation. Orders: Orders
--- NOTE | 2025-10-18 11:29 | PCM.PRE.AN2 ---
ASA Classification* ASA Classification ASA Classification: 1 Assessment & Plan Anesthesia* Anesthesia Assessment Anesthesia Assessment: Discussed sedation and/or anesthesia options, risks, benefits, and alternatives with patient/parents/legal guardian/POA. Questions invited. The patient/parents/legal guardian/POA seems to understand and agrees to proceed with anesthesia plan. Reviewed the physical assessment, medical history, allergy history and patient home medications list prior to surgery/procedure/anesthetic and documented any changes. Performed airway and anesthesia risk assessments. Anesthesia Type Anesthesia Type: MAC History Source History Obtained from:: Patient, Chart and Significant Other (Spouse in the room) Anesthesia Focused Assessment* Temperature: 98.8 F Pulse Rate: 75 Blood Pressure: 135/80 Respiratory Rate: 16 Pulse Ox: 100 Oxygen Delivery Method: Room Air Airway Assessment Mouth opens: >3 cm Mallampati Score: II Teeth Condition: Intact Neck Range of motion (ROM): Full ROM Labs Anesthesia Preop lab: CBC WBC, (4.4-11.0) 6.1 K/mm3 09/08/25, 08:11 RBC, (4.2-5.4) 4.40 M/mm3 09/08/25, 08:11 Hgb, (12.0-15.0) 13.6 g/dL 09/08/25, 08:11 Hct, (37-47) 39.9 % 09/08/25, 08:11 Plt Count, (150-450) 225 K/mm3 09/08/25, 08:11 CHEMISTRY Potassium, (3.3-5.1) 3.9 mmol/L 09/08/25, 08:11 Sodium, (133-145) 136 mmol/L 09/08/25, 08:11 BUN, (4-19) 9 mg/dL 09/08/25, 08:11 Creatinine, (0.70-1.20) 0.71 mg/dL 09/08/25, 08:11 Glucose, (70-99) 97 mg/dL 09/08/25, 08:11 COAG Urine Test Negative Negative 09/14/22, 07:48 Pre-Assessment Diagnosis/Proposed Procedure Planned Operative Procedure(s): COLONOSCOPY/EGD Anesthesia History 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 When Was Last Pacemaker Check QUESTION #4 FULL TEXT: You/Your Family Experience fever (hyperthermia) with Anesthesia Last Oral Intake Last Oral intake: Last Oral Intake NPO since 08:00 10/18/25 10:42 Meds taken in AM with sips of No 10/18/25 10:42 water? Meds patient instructed to take am of surgery PONV PONV - tobacco warehouse manager: PONV - tobacco warehouse manager Female Yes 10/12/25 15:32 HX of Motion Sickness No 10/12/25 15:32 HX of N/V After Surgery Yes 10/12/25 15:32 Non-Smoker Yes 10/12/25 15:32 Duration of Surgery greater No 10/12/25 15:32 than 60 minutes Number of Risk Factors 3 10/12/25 15:32 PONV Score Moderate Risk 10/12/25 15:32 Height & Weight Height & Weight: Anesthesia: Height & Weight Height 5 ft 6 in 10/18/25 10:42 Weight: 73.5 kg 10/18/25 10:42 Body Mass Index (BMI) 26.1 10/18/25 10:42 Respiratory Assessment Respiratory Assessment - tobacco warehouse manager: Respiratory Tract Infection Hx - tobacco warehouse manager Hx Respiratory Tract Infection No 10/12/25 15:32 STOP Sleep Apnea STOP Sleep Apnea - tobacco warehouse manager: STOP Sleep Apnea - tobacco warehouse manager Hx Hypertension No 10/12/25 15:32 Hx Sleep Apnea No 10/12/25 15:32 CPAP BIPAP Do you snore loudly (louder No 10/12/25 15:32 than talking or can be heard Do you often feel tired/ No 10/12/25 15:32 fatigued/ sleepy during daytime? Has anyone observed you stop No 10/12/25 15:32 breathing during sleep? STOP Results Negative 10/12/25 15:32 QUESTION #5 FULL TEXT : Do you snore loudly (louder than talking or can be heard through closed doors)? Tobacco Use History Tobacco Use History - tobacco warehouse manager: Tobacco Use History - tobacco warehouse manager Tobacco Use Smoking Status Never smoker 10/12/25 15:32 Hx Tobacco Use No 10/12/25 15:32 Years Smoking Packs Smoked per Day Smoking Cessation Date was within the last 15 years Hx Smoking Cessation Date Hx Smoking Cessation Counseling Hematologic Medial History Hematologic Hx - tobacco warehouse manager: Hematologic Medical Hx - chemical cell changer Hx of Blood Transfusion No 10/12/25 15:32 Hx of Transfusion in last 3 No 10/12/25 15:32 Months Date of Last Transfusion (if within last 3 months) Ever experience any problems No 10/12/25 15:32 with transfusion(s)? Specify any problems Hx of Preganancy in last 3 No 10/12/25 15:32 Months Nurse Filling Out Transfusion VCHRISTIN 10/12/25 15:32 & Questions: Date: 10/12/25 10/12/25 15:32 Time: 15:33 10/12/25 15:32 Patient unable to answer at this time (ie. confused, unrespo /Reproduction History /Reproductive History - tobacco warehouse manager: /Reproductive Hx- tobacco warehouse manager Hx Now No 10/12/25 15:32 Gestational Age (in weeks): EDC: Hx Hx Para Hx Section SAB No 10/12/25 15:32 Does the father of the baby or his family experience fever w Father of the baby Malignant Hypertension history comment Active Medications Active Medications: Current Medications Generic Name Dose Route Start Last Admin Trade Name Freq PRN Reason Stop Dose Admin Lactated Ringer's 1,000 mls @ 15 mls/hr 10/18/25 10:30 10/18/25 10:41 IV 15 mls/hr .Q48H LEVI Administration PFSH Medical History Left knee pain Wears glasses Alcohol use Migraine headache History of IBS Non-smoker History of echocardiogram History of stress test Encounter for screening colonoscopy Internal hemorrhoid Anxiety Home Medications Medication Instructions Recorded Last Taken Type cholecalciferol (vitamin D3) 50 50 mcg PO DAILY 09/10/22 Unknown History mcg (2,000 unit) capsule (Vitamin D3) magnesium 200 mg tablet 200 mg PO DAILY 09/10/22 Unknown History Bifidobacterium infantis 10.5 mg 10.5 mg PO DAILY 10/05/25 Unknown History (10 million cell) chewable tablet (Align (B.infantis)) ciprofloxacin HCl 500 mg tablet 500 mg PO Q12H 10/05/25 Unknown History citalopram 20 mg tablet 20 mg PO QDAY 10/05/25 Unknown History gabapentin 300 mg capsule 300 mg PO QDAY 10/05/25 Unknown History metronidazole 500 mg tablet 500 mg PO Q8H 10/05/25 Unknown History norethindrone acetate 1 mg-ethinyl 1 tab PO QDAY 10/05/25 Unknown History estradiol 20 mcg tablet (Junel) ondansetron HCl 4 mg tablet 4 mg PO Q6H PRN nausea and vomiting 10/05/25 Unknown History pantoprazole 40 mg tablet,delayed 40 mg PO QDAY 10/05/25 Unknown History release vitamin B complex 1 tab PO DAILY 10/12/25 Unknown History Allergy/AdvReac Type Severity Reaction Status Date / Time honey Allergy Severe Swelling Verified 10/18/25 10:40 erythromycin base AdvReac Intermediate Other Verified 10/18/25 10:40 Family History Father High blood cholesterol Mother Skin cancer Hypoglycemia Aunt Colon cancer Grandfather Bowel obstruction Surgical History Hx of colonoscopy History of bladder suspension procedure History of laparoscopic cholecystectomy History of hemorrhoidectomy History of Social History household members: spouse Smoking Status: Never smoker alcohol intake: current substance use type: does not use Review of Systems (Anesthesia) ROS Narrative System reviewed and no additional complaints, except as documented.
--- NOTE | 2025-10-18 11:30 | COLBX_PTH ---
PATIENT: KIERRA REED LOC: EN U#:[id number] AGE/SX: 50/F ROOM: RE10/18/[address]: Dr. Constantine Almeida DO : 1975 BED: DIS: 10/18/2025 SPEC #: [id number] RECD: 10/18/25 13:02 STATUS: MITCHELL REGen #: [id number] KATE: 10/18/25 11:[address]: Constantine Almeida DEPT: SURGICAL PATHOLOGY RECD BY: Benson Tuttle ENTERED: 10/19/25 09:41 SP TYPE: COLON BX OTHR DR: Dr. Michelle López MD Tissues: A - Duodenum, NOS B - Gastric mucous membrane C - Esophagus, NOS D - Cecum, NOS E - Ileum, NOS F - COLON BIOPSY G - Transverse colon Procedures: Immunohistochemical Stains Surgery Specimen Level IV HEADER OPERATION: Colonoscopy with biopsies and polypectomy, EGD with biopsies PRE-OP DIAGNOSIS: Nausea / vomiting, colitis, abdominal pain TISSUE SUBMITTED: A- Duodenum biopsy, B- Gastric body biopsy, C- Distal esophagus biopsy, D- Cecal polyp, E- Terminal ileum biopsy, F- Random colon biopsy, G- Transverse colon polyp MICROSCOPIC DIAGNOSIS A. Small intestine, duodenum, biopsy: - Normal villous architecture with Nawaf gland hyperplasia. - Negative for increased intraepithelial lymphocytes. B. Stomach, body, biopsy: - Antral and oxyntic mucosa with chronic inflammation and features of reactive gastropathy. - IHC for H pylori is PENDING and will be reported in an addendum. C. Esophagus, distal, biopsy: - Columnar mucosa negative for goblet cell metaplasia. - No squamous mucosa observed. D. Colon, cecum, polyp, polypectomy: - Serrated polyp suggestive of sessile serrated lesion. - No dysplasia seen. E. Small intestine, terminal ileum, biopsy: - No specific pathologic change. F. Colon, random, biopsy: - No specific pathologic change. - The histologic features of microscopic colitis are not demonstrated. G. Colon, transverse, polyp, polypectomy: - Tubular adenoma. MICROSCOPIC DESCRIPTION Slides are reviewed. GROSS DESCRIPTION A. Received in fixative is one container labeled with the patient's name and designated "Duodenum biopsy." The specimen consists of three irregular fragments of segovia tissue that measure 0.2 to 0.3 cm. The specimen is totally submitted in one cassette. B. Received in fixative is one container labeled with the patient's name and designated "Gastric body biopsy." The specimen consists of four irregular fragments of segovia tissue that measure 0.3 to 0.7 cm. The specimen is totally submitted in one cassette. C. Received in fixative is one container labeled with the patient's name and designated "Distal esophagus biopsy." The specimen consists of one irregular fragment of segovia tissue that measures 0.4 cm. The specimen is totally submitted in one cassette. D. Received in fixative is one container labeled with the patient's name and designated "Cecal polyp." The specimen consists of one irregular fragment of segovia tissue that measures 0.5 cm. The specimen is totally submitted in one cassette. E. Received in fixative is one container labeled with the patient's name and designated "Terminal ileum biopsy." The specimen consists of multiple irregular fragments of segovia tissue that in aggregate measure 1.3 x 0.7 x 0.1 cm. The specimen is totally submitted in one cassette. F. Received in fixative is one container labeled with the patient's name and designated "Random colon biopsy." The specimen consists of multiple irregular fragments of segovia tissue that in aggregate measure 1.3 x 0.9 x 0.1 cm. The specimen is totally submitted in one cassette. G. Received in fixative is one container labeled with the patient's name and designated "Transverse colon polyp." The specimen consists of a 1.2 x 0.8 x 0.1 cm in aggregate of segovia tissue fragments and flocculent material. [place] 10/18/2025 CPT:05625e4,68999 ADDENDUM ADDENDUM ADDENDUM ADDENDUM ADDENDUM ADDENDUM ADDENDUM ADDENDUM ADDENDUM ADDENDUM ADDENDUM ADDENDUM 10/20/2025 10:46 ADDENDUM 10/20/2025 10:46 ADDENDUM 10/20/2025 10:46 ADDENDUM 10/20/2025 10:46 ADDENDUM 10/20/2025 10:46 This addendum is to report the H pylori IHC stain on part B: B. IHC negative for H. pylori organisms. All matched controls reacted appropriately. These tests were developed and their performance characteristics determined by [facility]. They may not have been cleared or approved by the [place]. Food and Drug Administration. The FDA has determined that such clearance or approval is not necessary. The above immunohistochemical markers and/or special stains have been reviewed by the Pathologist.
--- NOTE | 2025-10-18 12:34 | OP.EGD_ITS ---
Patient Name: Kate Cortez Procedure Date: 10/18/2025 11:43 AM Date of : 1975 Age: 50 Procedure: Upper GI endoscopy Indications: Epigastric abdominal pain, Abdominal pain in the right upper quadrant, Abdominal pain in the right lower quadrant, Functional Dyspepsia, Indigestion, Failure to respond to medical treatment Providers: Constantine Almeida DO Medicines: Monitored Anesthesia Care Patient Profile: This is a 50 year old female. Refer to note in patient chart for documentation of history and physical. Patient has symptoms of chronic right upper quadrant abdominal pain, acute left lower quadrant abdominal pain, chronic epigastric abdominal pain, acute dyspepsia and chronic nausea. Complications: No immediate complications. Procedure: Pre-Anesthesia Assessment: - Prior to the procedure, a History and Physical was performed, and patient medications and allergies were reviewed. The patient is competent. The risks and benefits of the procedure and the sedation options and risks were discussed with the patient. All questions were answered and informed consent was obtained. Patient identification and proposed procedure were verified by the physician in the pre-procedure area. Mental Status Examination: alert and oriented. Airway Examination: normal oropharyngeal airway and neck mobility. Respiratory Examination: clear to auscultation. CV Examination: normal. Prophylactic Antibiotics: The patient does not require prophylactic antibiotics. Prior Anticoagulants: The patient has taken no anticoagulant or antiplatelet agents. ASA Grade Assessment: II - A patient with mild systemic disease. After reviewing the risks and benefits, the patient was deemed in satisfactory condition to undergo the procedure. The anesthesia plan was to use monitored anesthesia care (MAC). Immediately prior to administration of medications, the patient was re-assessed for adequacy to receive sedatives. The heart rate, respiratory rate, oxygen saturations, blood pressure, adequacy of pulmonary ventilation, and response to care were monitored throughout the procedure. The physical status of the patient was re-assessed after the procedure. After obtaining informed consent, the endoscope was passed under direct vision. Throughout the procedure, the patient's blood pressure, pulse, and oxygen saturations were monitored continuously. The Colonoscope was introduced through the mouth, and advanced to the fourth part of the duodenum. Small bowel enteroscopy was deemed necessary. The upper GI endoscopy was accomplished without difficulty. The patient tolerated the procedure well. Scope In: 12:00:42 PM Scope Out: 12:05:54 PM Total Procedure Duration Time 0 hours 5 minutes 12 seconds Findings: The Z-line was irregular and was found 40 cm from the incisors. Biopsies were taken with a cold forceps for histology. Verification of patient identification for the specimen was done. Estimated blood loss was minimal. The examined esophagus was normal. Patchy mildly erythematous mucosa without bleeding was found in the gastric body. Biopsies were taken with a cold forceps for histology. Biopsies were taken with a cold forceps for Helicobacter pylori testing. Verification of patient identification for the specimen was done. Estimated blood loss was minimal. Patchy mildly erythematous mucosa without active bleeding and with no stigmata of bleeding was found in the entire duodenum. Biopsies were taken with a cold forceps for histology. Verification of patient identification for the specimen was done. Estimated blood loss was minimal. Impression: - Z-line irregular, 40 cm from the incisors. Biopsied. - Normal esophagus. - Erythematous mucosa in the gastric body. Biopsied. - Erythematous duodenopathy. Biopsied. Recommendation: - Discharge patient to home. - Resume previous diet. - Continue present medications. - Await pathology results. Procedure Code(s): --- Professional --- 97669, Small intestinal endoscopy, enteroscopy beyond second portion of duodenum, not including ileum; with biopsy, single or multiple CPT copyright 2021 [employer]. All rights reserved. The codes documented in this report are preliminary and upon template maker review may be revised to meet current compliance requirements. Constantine Almeida DO 10/18/2025 12:34:15 PM This report has been signed electronically. Number of Addenda: 0 Note Initiated On: 10/18/2025 11:43 AM
--- NOTE | 2025-10-18 12:34 | OP.PROVAT_ITS ---
10/18/2025 Michelle López [address] [place] [address] Re : Upper GI endoscopy procedure for Kate Cortez Dear Dr. López This procedure was performed on Saturday, October 18, 2025. My impressions and recommendations are as follows: Impressions : - Z-line irregular, 40 cm from the incisors. Biopsied. - Normal esophagus. - Erythematous mucosa in the gastric body. Biopsied. - Erythematous duodenopathy. Biopsied. Recommendations : - Discharge patient to home. - Resume previous diet. - Continue present medications. - Await pathology results. My findings are described in the full procedure note, which is enclosed. If I can be of further assistance, please feel free to contact me at . Sincerely, Constantine Almeida, 10/18/2025 12:34:15 PM This report has been signed electronically.
--- NOTE | 2025-10-18 12:34 | PCM.POST.ANE ---
Anesthesia: Postop Eval I Current Vital Signs Temperature: 97.2 F Pulse Rate: 86 Blood Pressure: 109/68 Respiratory Rate: 16 Pulse Ox: 99 Oxygen Delivery Method: Room Air Assessment Airway patent: Yes Spontaneous unlabored respirations: Yes Mental status: Awake and Calm nausea: No Vomiting: No Anesthesia Complication: No Fluid Hydration Crystalloid volume administer (ml): 700 Total IV fluid infused: 700 Progress Note Anesthesia document: Postop Eval 1 completed: Yes
--- NOTE | 2025-10-18 12:38 | OP.COLON_ITS ---
Patient Name: Kate Cortez Procedure Date: 10/18/2025 12:06 PM Date of : 1975 Age: 50 Procedure: Colonoscopy Indications: Generalized abdominal pain, Clinically significant diarrhea of unexplained origin Providers: Constantine Almeida DO Medicines: Monitored Anesthesia Care Patient Profile: This is a 50 year old female. Refer to note in patient chart for documentation of history and physical. Patient has symptoms of chronic right upper quadrant abdominal pain, acute left lower quadrant abdominal pain, chronic epigastric abdominal pain, acute dyspepsia and chronic nausea. Last Colonoscopy: date unknown. Unable to locate last colonoscopy report. Complications: No immediate complications. Procedure: Pre-Anesthesia Assessment: - Prior to the procedure, a History and Physical was performed, and patient medications and allergies were reviewed. The patient is competent. The risks and benefits of the procedure and the sedation options and risks were discussed with the patient. All questions were answered and informed consent was obtained. Patient identification and proposed procedure were verified by the physician in the pre-procedure area. Mental Status Examination: alert and oriented. Airway Examination: normal oropharyngeal airway and neck mobility. Respiratory Examination: clear to auscultation. CV Examination: normal. Prophylactic Antibiotics: The patient does not require prophylactic antibiotics. Prior Anticoagulants: The patient has taken no anticoagulant or antiplatelet agents. ASA Grade Assessment: II - A patient with mild systemic disease. After reviewing the risks and benefits, the patient was deemed in satisfactory condition to undergo the procedure. The anesthesia plan was to use monitored anesthesia care (MAC). Immediately prior to administration of medications, the patient was re-assessed for adequacy to receive sedatives. The heart rate, respiratory rate, oxygen saturations, blood pressure, adequacy of pulmonary ventilation, and response to care were monitored throughout the procedure. The physical status of the patient was re-assessed after the procedure. After I obtained informed consent, the scope was passed under direct vision. Throughout the procedure, the patient's blood pressure, pulse, and oxygen saturations were monitored continuously. The Colonoscope was introduced through the anus and advanced to the terminal ileum. The colonoscopy was performed without difficulty. The patient tolerated the procedure well. The quality of the bowel preparation was adequate. The terminal ileum, ileocecal valve, appendiceal orifice, and rectum were photographed. Scope In: 12:07:22 PM Scope Withdrawal Time 0 hours 13 minutes 9 seconds Scope Out: 12:23:34 PM Total Procedure Duration Time 0 hours 16 minutes 12 seconds Findings: The perianal and digital rectal examinations were normal. An area of moderately congested mucosa was found in the recto-sigmoid colon and in the sigmoid colon. Biopsies were taken with a cold forceps for histology. Verification of patient identification for the specimen was done. Estimated blood loss was minimal. A 9 mm polyp was found in the transverse colon. The polyp was sessile. The polyp was removed with a hot snare. Resection and retrieval were complete. Verification of patient identification for the specimen was done. Estimated blood loss was minimal. A 5 mm polyp was found in the cecum. The polyp was sessile. The polyp was removed with a jumbo cold forceps. Resection and retrieval were complete. Verification of patient identification for the specimen was done. Estimated blood loss was minimal. The terminal ileum appeared normal. Biopsies were taken with a cold forceps for histology. Verification of patient identification for the specimen was done. Estimated blood loss was minimal. The exam was otherwise normal throughout the examined colon. Impression: - Congested mucosa in the recto-sigmoid colon and in the sigmoid colon. Biopsied. - One 9 mm polyp in the transverse colon, removed with a hot snare. Resected and retrieved. - One 5 mm polyp in the cecum, removed with a jumbo cold forceps. Resected and retrieved. - The examined portion of the ileum was normal. Biopsied. Recommendation: - Discharge patient to home. - Resume previous diet. - Continue present medications. - Await pathology results. - Repeat colonoscopy in 5 years for surveillance. Procedure Code(s): --- Professional --- 36477, Colonoscopy, flexible; with removal of tumor(s), polyp(s), or other lesion(s) by snare technique 29446, 59, Colonoscopy, flexible; with biopsy, single or multiple CPT copyright 2021 [employer]. All rights reserved. The codes documented in this report are preliminary and upon job printer review may be revised to meet current compliance requirements. Constantine Almeida DO 10/18/2025 12:38:35 PM This report has been signed electronically. Number of Addenda: 0 Note Initiated On: 10/18/2025 12:06 PM
--- NOTE | 2025-10-18 12:39 | OP.PROVAT_ITS ---
10/18/2025 Michelle López [address] [place] [address] Re : Colonoscopy procedure for Kate Cortez Dear Dr. López This procedure was performed on Saturday, October 18, 2025. My impressions and recommendations are as follows: Impressions : - Congested mucosa in the recto-sigmoid colon and in the sigmoid colon. Biopsied. - One 9 mm polyp in the transverse colon, removed with a hot snare. Resected and retrieved. - One 5 mm polyp in the cecum, removed with a jumbo cold forceps. Resected and retrieved. - The examined portion of the ileum was normal. Biopsied. Recommendations : - Discharge patient to home. - Resume previous diet. - Continue present medications. - Await pathology results. - Repeat colonoscopy in 5 years for surveillance. My findings are described in the full procedure note, which is enclosed. If I can be of further assistance, please feel free to contact me at . Sincerely, Constantine Almeida, 10/18/2025 12:38:35 PM This report has been signed electronically.
--- NOTE | 2025-10-18 13:48 | PCM.POSTANE2 ---
Anesthesia Postop Eval I Sum Postop Eval Completion status Anesthesia document: Postop Eval 1 completed: Yes Anesthesia Postop Eval I Summary Anesthesia Postop Eval I Summary: Anesthesia Postop Eval I: Assessment Summary Airway patent Yes 10/18/25 12:36 [email or web address] Spontaneous unlabored Yes 10/18/25 12:36 [email or web address] respirations Mental status Awake,Calm 10/18/25 12:36 [email or web address] nausea No 10/18/25 12:36 [email or web address] Vomiting No 10/18/25 12:36 [email or web address] Anesthesia Postop Eval I: Fluid Summary Crystalloid volume administer 700 10/18/25 12:36 [email or web address] (ml) Colloids volume administered ( ml) Blood Product volume administered (ml) Total IV fluid infused 700 10/18/25 12:36 [email or web address] Anesthesia Postop Eval I: Summary Notes Anesthesia Complication No 10/18/25 12:36 [email or web address] Anesthesia Complication Comment: Post-operative progress note Anesthesia: Postop Eval II Evaluation Mental status: Awake and Calm Pain Level: 1 nausea: No Vomiting: No Complications Anesthesia Complication: No
== END 2025-10-18 13:03 | disposition home or self-care (01) ==
LOC: EN 10:24 → AC 10:25
PROVIDERS: PCP Internal Medicine; Referring Provider Internal Medicine; Visit Provider Internal Medicine Gastroenterology
PROC: 0DJD8ZZ Inspection of Lower Intestinal Tract, Via Natural or Artificial Opening Endoscopic (ICD-10-PCS; CPT 45378; principal; 2025-10-18 11:25)
DX: K52.9 Noninfective gastroenteritis and colitis, unspecified (principal); K22.70 Barrett's esophagus without dysplasia; D12.0 Benign neoplasm of cecum; K29.50 Unspecified chronic gastritis without bleeding
CPT/HCPCS: 44361; 45380; 45385; 88305; 88342; J2405